=== PATIENT | male | born 1950 | race Caucasian/White ===

== ENCOUNTER 2017-10-28 19:40 | Inpatient (IN) | payer OTHER, MEDICARE ==
[~2017-10-28] VITALS: Ht 170.2 cm; Wt 87.5 kg
[2017-10-28 19:55] VITALS: BP 104/55; PULSE 123; RESP 29; TEMP 100.9; O2SAT 93
[2017-10-28 20:01] VITALS: BP 105/55; PULSE 123; RESP 29; TEMP 100.7; O2SAT 95
[2017-10-28] MEDS ORDERED: METOCLOPRAMIDE HCL 10 MG/2 ML VIAL IV PUSH ONE (20:15)
[2017-10-28] MEDS ORDERED: MORPHINE SULFATE 4 MG/ML INJ IV PUSH ONE (20:15)
--- NOTE | 2017-10-28 20:22 | PD ---
HPI Chief Complaint: Respiratory Distress Time Seen by Provider: 19:55 Travel History International Travel<30 days: No Contact w/Intl Traveler<30days: No Traveled to known affect area: No History of Present Illness HPI 59-year-old male presents to the emergency department via EMS for evaluation of shortness of breath and pain and numbness to the left leg. Patient states that he is short of breath due to the pain in the leg. He does state that he injured his low back on Saturday when he lifted something heavy. He states he cannot feel his leg from his groin down. He denies any history of the same. Patient is a poor historian. He does report history of COPD. He denies any known fevers or chills. He denies chest pain. He is diaphoretic on my exam. Patient received 1 L normal saline bolus via EMS. Patient denies any history of bleeding or blood clots. No recent surgery or travel. No hemoptysis. No history of DVT/PE. He denies leg edema. Patient states the pain is 10/10 to the left leg. No exacerbating or alleviating factors. Moderate severity. PFSH Past Medical History COPD: Yes Diminished Hearing: No Respiratory: Yes (COPD) Influenza Vaccination: Yes Past Surgical History Surgical History: No Previous Surgery Social History Alcohol Use: No Tobacco Use: No (QUIT 07/2017) Substance Use: No Allergies-Medications (Allergen,Severity, Reaction): Coded Allergies: No Known Allergies (Unverified , 10/28/17) Reported Meds & Prescriptions Reported Meds & Active Scripts Active Reported Omeprazole 40 Mg Cap 40 Mg DAILY Losartan (Losartan Potassium) 50 Mg Tab 50 Mg PO DAILY Diltiazem (Diltiazem HCl) 120 Mg Tab 240 Mg PO DAILY Review of Systems Except as stated in HPI: all other systems reviewed are Neg Physical Exam Narrative GENERAL: Well-nourished, well-developed male patient, temp of 100.9 SKIN: Focused skin assessment warm. Patient is diaphoretic. HEAD: Normocephalic. Atraumatic. EYES: No scleral icterus. No injection or drainage. NECK: Supple, trachea midline. No JVD or lymphadenopathy. CARDIOVASCULAR: Regular rhythm without murmurs, gallops, or rubs. Patient is tachycardic. RESPIRATORY: Breath sounds equal bilaterally. No accessory muscle use. Lung sounds are clear to auscultation. Patient is tachypneic. GASTROINTESTINAL: Abdomen soft, non-tender, nondistended. MUSCULOSKELETAL: Left toes blue. His left foot is cool to the touch. I am only able to doppler a left femoral pulse. Right pedal pulse easily found with doppler. BACK: Nontender without obvious deformity. No CVA tenderness. Data Data Last Documented VS Vital Signs Date Time Temp Pulse Resp B/P (MAP) Pulse Ox O2 Delivery O2 Flow Rate FiO2 10/28/17 21:04 102 28 109/55 (73) 97 Nasal Cannula 10/28/17 21:01 4.00 10/28/17 20:01 100.7 Orders Orders Sepsis Workup Initiated (10/28/17 ) Electrocardiogram (10/28/17 20:11) Complete Blood Count With Diff (10/28/17 20:11) Comprehensive Metabolic Panel (10/28/17 20:11) Prothrombin Time / Inr (Pt) (10/28/17 20:11) Act Partial Throm Time (Ptt) (10/28/17 20:11) Lactic Acid Sepsis Protocol (10/28/17 20:11) Magnesium (Mg) (10/28/17 20:11) Lipase (10/28/17 20:11) Ckmb (Isoenzyme) Profile (10/28/17 20:11) Troponin I (10/28/17 20:11) Urinalysis - C+S If Indicated (10/28/17 20:11) Blood Culture (10/28/17 20:11) Chest, Single Ap (10/28/17 20:11) Blood Glucose (10/28/17 20:11) Ecg Monitoring (10/28/17 20:11) Iv Access Insert/Monitor (10/28/17 20:11) Oximetry (10/28/17 20:11) Oxygen Administration (10/28/17 20:11) Morphine Inj (Morphine Inj) (10/28/17 20:15) Metoclopramide Inj (Reglan Inj) (10/28/17 20:15) Cta Runoff W Iv Contrast W 3d (10/28/17 ) Heparin Inj (Heparin Inj) (10/28/17 20:30) Heparin-D5w 25,000 U/250 Ml (Heparin-D5w (10/28/17 20:30) Cbc No Diff, Includes Plts (10/31/17 06:00) Act Partial Throm Time (Ptt) (10/29/17 03:26) Occult Blood (Hemoccult) Stool (10/28/17 20:26) Diet Npo (10/29/17 Breakfast) Sodium Chlor 0.9% 1000 Ml Inj (Ns 1000 M (10/28/17 21:30) Azithromycin Inj (Zithromax Inj) (10/28/17 21:45) Ceftriaxone Inj (Rocephin Inj) (10/28/17 21:45) Sodium Chlor 0.9% 1000 Ml Inj (Ns 1000 M (10/28/17 21:45) CKMB (10/28/17 20:15) CKMB% (10/28/17 20:15) Admit To Inpatient (10/28/17 ) Code Status (10/28/17 22:01) Vital Signs (Adult) SHERMAN.Q1H (10/28/17 22:01) Activity Bed Rest (10/28/17 22:01) Elevate Head Of Bed (10/28/17 22:01) Neuro Checks . ORDERED (10/28/17 22:01) Intake + Output Q1H (10/28/17 22:01) Sodium Chlor 0.9% 1000 Ml Inj (Ns 1000 M (10/28/17 23:00) Sodium Chloride 0.9% Flush (Ns Flush) (10/28/17 22:15) Sodium Chloride 0.9% Flush (Ns Flush) (10/29/17 09:00) Acetaminophen (Tylenol) (10/28/17 22:15) Famotidine Inj (Pepcid Inj) (10/29/17 09:00) Ondansetron Inj (Zofran Inj) (10/28/17 22:15) Temazepam (Restoril) (10/28/17 22:15) Albuterol-Ipratropium Neb (Duoneb Neb) (10/28/17 22:15) Complete Blood Count With Diff (10/29/17 04:00) Comprehensive Metabolic Panel (10/29/17 04:00) Act Partial Throm Time (Ptt) (10/29/17 04:00) Prothrombin Time / Inr (Pt) (10/29/17 04:00) Magnesium (Mg) (10/29/17 04:00) Phosphorus (Po4) (10/29/17 04:00) Lactic Acid (10/29/17 04:00) Pt Request For Service (10/28/17 22:01) Mathematical Physicist / Telemetry SHERMAN.Q8H (10/28/17 22:01) Heparin Inj (Heparin Inj) (10/28/17 22:30) ^ Initiate Protocol (10/28/17 22:01) Instruction (10/28/17 22:01) Nursing Information ([facility] (10/28/17 22:15) Chlorhexidine 2% Cloth (Chlorhexidine 2% (10/29/17 04:00) Chlorhexidine 2% Cloth (Chlorhexidine 2% (10/28/17 22:15) Mrsa Pcr Surveillance (10/28/17 22:01) Docusate Sodium-Senna (Elvira-Colace) (10/29/17 09:00) Magnesium Hydroxide Liq (Milk Of Magnesi (10/28/17 22:15) Sennosides (Senokot) (10/28/17 22:15) Bisacodyl Supp (Dulcolax Supp) (10/28/17 22:15) Lactulose Liq (Lactulose Liq) (10/28/17 22:15) Inpatient Certification (10/28/17 ) Iodixanol 320 Inj (Rad Ct) (Visipaque 32 (10/28/17 22:10) Hydromorphone Pf Inj (Dilaudid Pf Inj) (10/28/17 22:30) Methylprednisolone So Succ Inj (Solumedr (10/29/17 00:00) Albuterol-Ipratropium Neb (Duoneb Neb) (10/29/17 00:00) Heparin-D5w 25,000 U/250 Ml (Heparin-D5w (10/28/17 22:30) Consult Pulmonology (10/28/17 ) (Hub Use Only)Inp Phy Cons/Ref (10/28/17 ) Arterial Segmt Dopp Ltd Jayde (10/28/17 ) ^ Other Nursing Orders (10/28/17 22:34) Admit Order (Ed Use Only) (10/28/17 22:55) Labs Laboratory Tests Test 5/21/18 20:15 White Blood Count 13.3 TH/MM3 Red Blood Count 4.49 MIL/MM3 Hemoglobin 13.9 GM/DL Hematocrit 41.2 % Mean Corpuscular Volume 91.7 FL Mean Corpuscular Hemoglobin 30.9 PG Mean Corpuscular Hemoglobin Concent 33.7 % Red Cell Distribution Width 13.1 % Platelet Count 125 TH/MM3 Mean Platelet Volume 8.9 FL Neutrophils (%) (Auto) 90.7 % Lymphocytes (%) (Auto) 4.3 % Monocytes (%) (Auto) 4.6 % Eosinophils (%) (Auto) 0.1 % Basophils (%) (Auto) 0.3 % Neutrophils # (Auto) 12.1 TH/MM3 Lymphocytes # (Auto) 0.6 TH/MM3 Monocytes # (Auto) 0.6 TH/MM3 Eosinophils # (Auto) 0.0 TH/MM3 Basophils # (Auto) 0.0 TH/MM3 CBC Comment AUTO DIFF Differential Total Cells Counted 100 Neutrophils % (Manual) 59 % Band Neutrophils % 28 % Lymphocytes % 6 % Monocytes % 4 % Neutrophils # (Manual) 12.0 TH/MM3 Metamyelocytes 3 % Differential Comment FINAL DIFF MANUAL Toxic Vacuolation PRESENT Dohle Bodies PRESENT Platelet Estimate LOW Platelet Morphology Comment NORMAL Red Cell Morphology Comment NORMAL Prothrombin Time 12.7 SEC Prothromb Time International Ratio 1.3 RATIO Activated Partial Thromboplast Time 25.6 SEC Blood Urea Nitrogen 29 MG/DL Creatinine 2.85 MG/DL Random Glucose 103 MG/DL Total Protein 6.5 GM/DL Albumin 2.6 GM/DL Calcium Level 8.3 MG/DL Magnesium Level 2.4 MG/DL Alkaline Phosphatase 144 U/L Aspartate Amino Transf (AST/SGOT) 205 U/L Alanine Aminotransferase (ALT/SGPT) 117 U/L Total Bilirubin 5.5 MG/DL Sodium Level 142 MEQ/L Potassium Level 3.8 MEQ/L Chloride Level 108 MEQ/L Carbon Dioxide Level 16.0 MEQ/L Anion Gap 18 MEQ/L Estimat Glomerular Filtration Rate 22 ML/MIN Lactic Acid Level 7.4 mmol/L Total Creatine Kinase 1061 U/L Creatine Kinase MB 5.2 NG/ML Creatine Kinase MB % 0.5 % Troponin I 0.07 NG/ML Lipase 41 U/L MDM Medical Decision Making Medical Screen Exam Complete: Yes Emergency Medical Condition: Yes Medical Record Reviewed: Yes Differential Diagnosis arterial occlusion vs. pneumonia vs. sepsis vs. copd exacerbation Narrative Course 67-year-old male presents to the emergency department via EMS for evaluation of shortness of breath and left leg pain. On exam, he does not have a dopplerable pulse except a femoral pulse in the left leg. His leg is cool, toes are blue. He is unable to move his toes or his left knee. I contacted vascular surgeon, Dr. Lopez, data reduction technician. He recommends heparin bolus, heparin drip, CTA abdomen/ pelvis down to the toes. He like the patient to remain n.p.o. He would like to be called as soon as CTAs are resulted. EKG, CBC, CMP, lactic acid, magnesium, lipase, CK, troponin, PTT, PT/INR, UA are ordered and pending. Chest x-ray is ordered and pending. CTA abdomen/ pelvis, CTA of the lower extremities runoff are ordered and pending. Patient is given morphine 4 mg IV, Reglan 10 mg IV. Heparin bolus of 80 U/kg and heparin drip are ordered. CBC shows leukocytosis 13.3, band neutrophils 28, toxic vacuolation. CMP shows CO2 16, anion gap 18, BUN 29, creatinine 2.85, bilirubin 5.5. Lactic acid is 7.4. Magnesium is 2.4. Lipase is 41. CK is 1061. Troponin is 0.07. Coags show no acute abnormal. Chest x-ray shows left lower lobe infiltrate, mild cardiomegaly. Patient is given 2 additional IV normal saline boluses Dr. Lopez would like CT is completed even though creatinine is elevated. I spoke to Dr. Rahman, radiologist, who would like to speak to Dr. Lopez about this. I called Dr. Lopez and gave him Dr. Rahman's number. He called Dr. Rahman and okayed the patient to get contrast despite his creatinine. Dr. Aden accepted admission. Dr. Lopez was in the emergency department evaluating the patient. Sepsis Criteria SIRS Criteria (2 or more): Heart rate over 90, WBC > 17182, < 4000 or > 10% bands Sepsis Criteria (SIRS+source): Infect source susp/known Severe Sepsis (+one): Lactate >2 Diagnosis Primary Impression: Sepsis Qualified Codes: A41.9 - Sepsis, unspecified organism Additional Impressions: Pneumonia Qualified Codes: J18.1 - Lobar pneumonia, unspecified organism Ischemia of left lower extremity Admitting Information Admitting Physician Requests: Admit Yamilka Petty October 28, 2017 20:22
[2017-10-28] MEDS ORDERED: HEPARIN-D5W 25,000 U/250 ML 250 ML IV PRN (20:30)
[2017-10-28] MEDS ORDERED: HEPARIN SODIUM - IV 10,000 UNITS/10 ML VIAL IV PUSH ONE (20:30)
--- NOTE | 2017-10-28 20:35 | RADRPT ---
EXAM DATE/TIME: 10/28/2017 20:20 [place] COMPARISON: No previous studies available for comparison. INDICATIONS : Shortness of breath. MEDICAL HISTORY : Chronic obstructive pulmonary disease. Former smoker. SURGICAL HISTORY : None. ENCOUNTER: Initial ACUITY: 1 day PAIN SCORE: 0/10 LOCATION: Bilateral chest FINDINGS: 2 portable frontal views of the chest show a small area consolidation involving the lateral aspects o f the left lung base. This obscures the cardiophrenic angle. No meniscus. Right lung is clear. No eff usions. Heart is mildly enlarged. Bony structures are unremarkable. CONCLUSION: Left lower lobe infiltrate. Mild cardiomegaly. Juanjose Mckeon Jr., MD on October 28, 2017 at 20:33 Board Certified Radiologist. This report was verified electronically.
[2017-10-28 21:03] LABS: AUTOMATED NEUTROPHIL # 12.1 TH/MM3 (1.8-7.7); BASOPHIL % 0.3 % (0.0-2.0); EOSINOPHIL % 0.1 % (0.0-4.0); HEMATOCRIT 41.2 % (39.0-51.0); HEMOGLOBIN 13.9 GM/DL (13.0-17.0); LYMPH % 4.3 % (9.0-44.0); LYMPHOCYTE # 0.6 TH/MM3 (1.0-4.8); MEAN CELL VOLUME 91.7 FL (80.0-100.0); MEAN CORPUSCULAR HEMOGLOBIN 30.9 PG (27.0-34.0); MEAN CORPUSCULAR HGB CONC 33.7 % (32.0-36.0); MEAN PLATELET VOLUME 8.9 FL (7.0-11.0); MONO % 4.6 % (0.0-8.0); MONOCYTE # 0.6 TH/MM3 (0-0.9); NEUT % 90.7 % (16.0-70.0); PLATELET COUNT 125 TH/MM3 (150-450); RED BLOOD COUNT 4.49 MIL/MM3 (4.50-5.90); RED CELL DISTRIBUTION WIDTH 13.1 % (11.6-17.2); WHITE BLOOD COUNT 13.3 TH/MM3 (4.0-11.0)
[2017-10-28 21:04] VITALS: BP 109/55; PULSE 102; RESP 28; O2SAT 97
[2017-10-28 21:22] LABS: INTERNATIONAL NORMALIZED RATIO 1.3 RATIO; PROTHROMBIN TIME - PATIENT 12.7 SEC (9.8-11.6)
[2017-10-28 21:25] LABS: ALBUMIN 2.6 GM/DL (3.4-5.0); ALT (GPT) 117 U/L (12-78); AST (GOT) 205 U/L (15-37); CALCIUM 8.3 MG/DL (8.5-10.1); CHLORIDE 108 MEQ/L (98-107); CREATININE 2.85 MG/DL (0.60-1.30); GLOMERULAR FILTRATION RATE 22 ML/MIN (>89); GLUCOSE,RANDOM 103 MG/DL (74-106); MAGNESIUM 2.4 MG/DL (1.5-2.5); SODIUM (NA) 142 MEQ/L (136-145)
[2017-10-28] MEDS ORDERED: SODIUM CHLOR 0.9% 1000 ML INJ 1,000 ML IV ONE ×2 (21:30→21:45)
[2017-10-28 21:42] LABS: LACTIC ACID SEPSIS PROTOCOL 7.4 mmol/L (0.4-2.0)
[2017-10-28] MEDS ORDERED: cefTRIAXone INJ 1,000 MG in SODIUM CHLORIDE 0.9% INJ 100 ML IV ONE (21:45)
[2017-10-28] MEDS ORDERED: AZITHROMYCIN INJ 500 MG in SODIUM CHLOR 0.9% 250 ML INJ 250 ML IV ONE (21:45)
[2017-10-28 21:54] LABS: ALKALINE PHOSPHATASE 144 U/L (45-117); BLOOD UREA NITROGEN 29 MG/DL (7-18); TOTAL BILIRUBIN ADULT 5.5 MG/DL (0.2-1.0); TOTAL PROTEIN 6.5 GM/DL (6.4-8.2); TROPONIN I 0.07 NG/ML (0.02-0.05)
[2017-10-28] MEDS ORDERED: IODIXANOL 320 MG/ML 10 ML VIAL (for Rad CT) IVCONTRAST ONE (22:10)
[2017-10-28] MEDS ORDERED: SODIUM CHLORIDE 0.9% FLUSH 10 ML FLUSH IV FLUSH PRN (22:15)
[2017-10-28] MEDS ORDERED: ACETAMINOPHEN 325 MG TAB PO PRN (22:15)
[2017-10-28] MEDS ORDERED: TEMAZEPAM 15 MG CAP PO PRN (22:15)
[2017-10-28] MEDS ORDERED: NURSING INFORMATION XX SCH (22:15)
[2017-10-28] MEDS ORDERED: CHLORHEXIDINE GLUCONATE 2 % 1 PACK (2 CLOTHS) TOP PRN (22:15)
[2017-10-28] MEDS ORDERED: SENNOSIDES 8.6 MG TAB PO PRN (22:15)
--- NOTE | 2017-10-28 22:24 | HHI.HP ---
[facility] Service Critical Care Medicine Primary Care Physician Admission Diagnosis Diagnosis: Travel History International Travel<30 Days: No Contact w/Intl Traveler <30 Da: No Traveled to Known Affected Are: No History of Present Illness 67-year-old male presents to the emergency department via EMS for evaluation of shortness of breath and pain and numbness to the left leg. Patient believes that he is shortness of breath is related to the pain in his leg. He cannot feel his leg from his groin down. He denies any history of the same. He does report history of COPD. He denies any known fevers or chills. He denies chest pain. Patient received 1 L normal saline bolus via EMS. Patient denies any history of bleeding or blood clots. No recent surgery or travel. No hemoptysis. No history of DVT/PE. He denies leg edema. Patient states the pain is 10/10 to the left leg. No exacerbating or alleviating factors. Moderate severity. 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 The right inflow is heavily diseased as well. The patient was evaluated by vascular surgeon consolidator and was immediately started on heparin drip. Review of Systems Constitutional: COMPLAINS OF: Diaphoretic episodes, DENIES: Fatigue, Fever, Weight gain, Weight loss, Chills, Dizziness, Change in appetite, Night Sweats Endocrine: DENIES: Heat/cold intolerance, Polydipsia, Polyuria, Polyphagia Eyes: DENIES: Blurred vision, Diplopia, Eye inflammation, Eye pain, Vision loss , Photosensitivity, Double Vision Ears, nose, mouth, throat: DENIES: Tinnitus, Hearing loss, Vertigo, Nasal discharge, Oral lesions, Throat pain, Hoarseness, Ear Pain, Running Nose, Epistaxis, Sinus Pain, Toothache, Odynophagia Respiratory: COMPLAINS OF: Shortness of breath, DENIES: Apneas, Cough, Snoring , Wheezing, Hemoptysis, Sputum production Cardiovascular: COMPLAINS OF: Dyspnea on Exertion, DENIES: Chest pain, Palpitations, Syncope, PND, Lower Extremity Edema, Orthopnea, Claudication Gastrointestinal: DENIES: Abdominal pain, Black stools, Bloody stools, Constipation, Diarrhea, Nausea, Vomiting, Difficulty Swallowing, Anorexia Genitourinary: DENIES: Sexual dysfunction, Urinary frequency, Urinary incontinence, Urgency, Hematuria, Dysuria, Nocturia, Penile Discharge, Testicular Pain, Testicular Swelling Musculoskeletal: DENIES: Joint pain, Muscle aches, Stiffness, Joint Swelling, Back pain, Neck pain Integumentary: DENIES: Abnormal pigmentation, Nail changes, Pruritus, Rash Hematologic/lymphatic: DENIES: Bruising, Lymphadenopathy Immunologic/allergic: DENIES: Eczema, Urticaria Neurologic: DENIES: Abnormal gait, Headache, Localized weakness, Paresthesias, Seizures, Speech Problems, Tremor, Poor Balance Psychiatric: DENIES: Anxiety, Confusion, Mood changes, Depression, Hallucinations, Agitation, Suicidal Ideation, Homicidal Ideation, Delusions Past Family Social History Allergies: Coded Allergies: No Known Allergies (Unverified , 10/28/17) Past Medical History No known CAD + COPD hiatal hernia Past Surgical History hiatal hernia repair several decades ago Reported Medications Reported Meds & Active Scripts Active Reported Omeprazole 40 Mg Cap 40 Mg DAILY Losartan (Losartan Potassium) 50 Mg Tab 50 Mg PO DAILY Diltiazem (Diltiazem HCl) 120 Mg Tab 240 Mg PO DAILY Active Ordered Medications Current Medications Medications (Trade) Dose Ordered Sig/Olesya Route PRN Reason Start Time Stop Time Status Last Admin Dose Admin Sodium Chloride 1,000 ml @ 124 mls/hr Q8H4M IV 10/28/17 23:00 Sodium Chloride (NS Flush) 2 ml UNSCH PRN IV FLUSH FLUSH AFTER USING IV ACCESS 10/28/17 22:15 Sodium Chloride (NS Flush) 2 ml BID IV FLUSH 10/29/17 09:00 Acetaminophen (Tylenol) 650 mg Q6H PRN PO PAIN 1-5 AND/OR FEVER >101F 10/28/17 22:15 Hydromorphone HCl (Dilaudid Pf Inj) 1 mg Q4H PRN IV PAIN SCALE 6 TO 10 10/28/17 22:30 Famotidine (Pepcid Inj) 10 mg Q12HR IV PUSH 10/29/17 09:00 Ondansetron HCl (Zofran Inj) 4 mg Q6H PRN IV PUSH NAUSEA OR VOMITING 10/28/17 22:15 Temazepam (Restoril) 15 mg HS PRN PO INSOMNIA 10/28/17 22:15 Albuterol/ Ipratropium (Duoneb Neb) 1 ampule Q2HR NEB PRN INH WHEEZING 10/28/17 22:15 Miscellaneous Information (Misc Nursing Information) 1 [id number] XX 10/28/17 22:15 Chlorhexidine Gluconate (Chlorhexidine 2% Cloth) 3 pack Taper DAILY@04 TOP 10/29/17 04:00 10/25/18 03:59 Chlorhexidine Gluconate (Chlorhexidine 2% Cloth) 3 pack UNSCH PRN TOP HYGIENIC CARE 10/28/17 22:15 Senna/Docusate Sodium (Elvira-Colace) 1 tab BID PO 10/29/17 09:00 Magnesium Hydroxide (Milk Of Magnesia Liq) 30 ml Q12H PRN PO Mild constipation 10/28/17 22:15 Sennosides (Senokot) 17.2 mg Q12H PRN PO Moderate constipation 10/28/17 22:15 Bisacodyl (Dulcolax Supp) 10 mg DAILY PRN RECTAL SEVERE CONSITIPATION 10/28/17 22:15 Lactulose (Lactulose Liq) 30 ml DAILY PRN PO SEVERE CONSITIPATION 10/28/17 22:15 Methylprednisolone Sodium Succinate (SoluMEDROL INJ) 40 mg Q6HR IV PUSH 10/29/17 00:00 Albuterol/ Ipratropium (Duoneb Neb) 1 ampule Q4HR NEB NEB 10/29/17 00:00 10/28/17 23:25 Heparin Sodium/ Dextrose 250 ml @ 15 mls/hr TITRATE PRN IV Coagulation Management 10/28/17 22:30 Azithromycin 500 mg/Sodium Chloride 250 ml @ 250 mls/hr Q24H IV 10/29/17 22:00 Ceftriaxone Sodium 1000 mg/ Sodium Chloride 100 ml @ 200 mls/hr Q12H IV 10/29/17 09:00 Diltiazem HCl (Cardizem Cd) 240 mg DAILY PO 10/29/17 09:00 Family History No family history significant of early coronary artery disease or PVDs Social History With smoking few days ago, no history of alcohol or illicit drug abuse Physical Exam Vital Signs Vital Signs Date Time Temp Pulse Resp B/P (MAP) Pulse Ox O2 Delivery O2 Flow Rate FiO2 10/28/17 21:04 102 28 109/55 (73) 97 Nasal Cannula 10/28/17 21:01 97 Nasal Cannula 4.00 10/28/17 20:01 100.7 123 29 105/55 (72) 95 Nasal Cannula 4.00 10/28/17 20:01 123 29 94 Nasal Cannula 4.00 10/28/17 19:55 100.9 123 29 104/55 (71) 93 Physical Exam GENERAL: Well-nourished, well-developed patient. Moderate respiratory distress SKIN: Warm and dry. HEAD: Normocephalic. EYES: No scleral icterus. No injection or drainage. NECK: Supple, trachea midline. No JVD or lymphadenopathy. CARDIOVASCULAR: Regular rate and rhythm without murmurs, gallops, or rubs. RESPIRATORY: Breath sounds equal bilaterally. Some accessory muscle use. Bilateral crackles and fine rhonchi GASTROINTESTINAL: Abdomen soft, non-tender, nondistended. MUSCULOSKELETAL: No cyanosis, or edema. BACK: Nontender without obvious deformity. NEURO EXAM: GCS: 15 Mental Status: The patient is alert and oriented to person, place, and time with normal speech. Moves all 4 extremities Laboratory Laboratory Tests Test 10/28/17 20:15 White Blood Count 13.3 Red Blood Count 4.49 Hemoglobin 13.9 Hematocrit 41.2 Mean Corpuscular Volume 91.7 Mean Corpuscular Hemoglobin 30.9 Mean Corpuscular Hemoglobin Concent 33.7 Red Cell Distribution Width 13.1 Platelet Count 125 Mean Platelet Volume 8.9 Neutrophils (%) (Auto) 90.7 Lymphocytes (%) (Auto) 4.3 Monocytes (%) (Auto) 4.6 Eosinophils (%) (Auto) 0.1 Basophils (%) (Auto) 0.3 Neutrophils # (Auto) 12.1 Lymphocytes # (Auto) 0.6 Monocytes # (Auto) 0.6 Eosinophils # (Auto) 0.0 Basophils # (Auto) 0.0 CBC Comment AUTO DIFF Prothrombin Time 12.7 Prothromb Time International Ratio 1.3 Activated Partial Thromboplast Time 25.6 Blood Urea Nitrogen 29 Creatinine 2.85 Random Glucose 103 Total Protein 6.5 Albumin 2.6 Calcium Level 8.3 Magnesium Level 2.4 Alkaline Phosphatase 144 Aspartate Amino Transf (AST/SGOT) 205 Alanine Aminotransferase (ALT/SGPT) 117 Total Bilirubin 5.5 Sodium Level 142 Potassium Level 3.8 Chloride Level 108 Carbon Dioxide Level 16.0 Anion Gap 18 Estimat Glomerular Filtration Rate 22 Lactic Acid Level 7.4 Total Creatine Kinase 1061 Troponin I 0.07 Lipase 41 Date/Time Source Procedure Growth Status 10/28/17 20:20 Blood Peripheral Aerobic Blood Culture Pending Received 10/28/17 20:20 Blood Peripheral Anaerobic Blood Culture Pending Received Result Diagram: 10/28/17201410/28/172014 Imaging Last 24 hours Impressions Chest X-Ray 10/28/172010 Signed Impressions: Service Date/Time: Saturday, October 28, 2017 20:20 - CONCLUSION: Left lower lobe infiltrate. Mild cardiomegaly. MD Mango Richey Jr. VTE Risk Assessment Caprini VTE Risk Assessment: Mod/High Risk (score >= 2) Caprini Risk Assessment Model Point Value = 1 Point Value = 2 Point Value = 3 Point Value = 5 Age 41-60 Minor surgery BMI > 25 kg/m2 Swollen legs Varicose veins or History of unexplained or recurrent spontaneous Oral contraceptives or hormone replacement Sepsis (< 1 month) Serious lung disease, including pneumonia (< 1 month) Abnormal pulmonary function Acute myocardial infarction Congestive heart failure (< 1 month) History of inflammatory bowel disease Medical patient at bed rest Age 61-74 Arthroscopic surgery Major open surgery (> 45 min) Laparoscopic surgery (> 45 min) Malignancy Confined to bed (> 72 hours) Immobilizing plaster cast Central venous access Age >= 75 History of VTE Family history of VTE Factor V Leiden Prothrombin [id number] Lupus anticoagulant Anticardiolipin antibodies Elevated serum homocysteine Heparin-induced thrombocytopenia Other congenital or acquired thrombophilia Stroke (< 1 month) Elective arthroplasty Hip, pelvis, or leg fracture Acute spinal cord injury (< 1 month) Prophylaxis Regimen Total Risk Factor Score Risk Level Prophylaxis Regimen 0-1 Low Early ambulation 2 Moderate Order ONE of the following: *Sequential Compression Device (SCD) *Heparin 5000 units SQ BID 3-4 Higher Order ONE of the following medications: *Heparin 5000 units SQ TID *Enoxaparin/Lovenox 40 mg SQ daily (WT < 150 kg, CrCl > 30 mL/min) *Enoxaparin/Lovenox 30 mg SQ daily (WT < 150 kg, CrCl > 10-29 mL/min) *Enoxaparin/Lovenox 30 mg SQ BID (WT < 150 kg, CrCl > 30 mL/min) AND/OR *Sequential Compression Device (SCD) 5 or more Highest Order ONE of the following medications: *Heparin 5000 units SQ TID (Preferred with Epidurals) *Enoxaparin/Lovenox 40 mg SQ daily (WT < 150 kg, CrCl > 30 mL/min) *Enoxaparin/Lovenox 30 mg SQ daily (WT < 150 kg, CrCl > 10-29 mL/min) *Enoxaparin/Lovenox 30 mg SQ BID (WT < 150 kg, CrCl > 30 mL/min) AND *Sequential Compression Device (SCD) Assessment and Plan Assessment and Plan Respiratory failure -High risk for CAD -Significant calcifications and peripheral vascular disease -We will rule out acute coronary syndrome -Series of EKGs and troponins, 2D echo a.m. -Patient is already on a heparin drip due to iliac artery occlusion Pneumonia -Infiltrate on the x-ray -Rocephin and Zithromax -Follow-up sputum and blood cultures COPD -DuoNeb scheduled and as needed -Empiric antibiotic -Steroids -Pulmonary consultation prior vascular surgery Acute kidney injury -Unknown baseline -Hydration -Strict I's and O's -Creatinine and electrolyte levels DVT GI prophylaxis -Vickey's and SCDs -Heparin drip -Pepcid Critical Care: The total critical care time was 35 minutes. Time to perform other separately billable procedures was not included in the critical care time. Kenn Aden MD October 28, 2017 10:24 pm
[2017-10-28] MEDS ORDERED: HEPARIN SODIUM - SQ 10,000 UNITS/ML VIAL SQ SCH (22:30)
--- NOTE | 2017-10-28 22:34 | PD.VS.CON ---
History of Present Illness Chief Complaint: L>R leg numbness Consult Requested by: Dr. Benz, ED History of Present Illness 67 yo male with back pain starting 2 days ago related to exertion. Then today developed worsening leg pain. Decreased motor function and overtly cool according to the sister who accompanies him and provides most of history. The patient says that his left foot feels numb. Was normal for him several days ago. Past/Family/Social History Past Medical History No known CAD + COPD hiatal hernia poor historian so remainder of medical history unknown Past Surgical History hiatal hernia repair several decades ago Social History former smoker lives with demented father Family History NC Coded Allergies: No Known Allergies (Unverified , 10/28/17) Review of Systems ROS Limitations: Poor Historian Physical Exam Vitals/I&O Date Time Temp Pulse Resp B/P (MAP) Pulse Ox O2 Delivery O2 Flow Rate FiO2 10/28/17 21:04 102 28 109/55 (73) 97 Nasal Cannula 10/28/17 21:01 97 Nasal Cannula 4.00 10/28/17 20:01 100.7 123 29 105/55 (72) 95 Nasal Cannula 4.00 10/28/17 20:01 123 29 94 Nasal Cannula 4.00 10/28/17 19:55 100.9 123 29 104/55 (71) 93 Neuro: slightly somnolent, [place] HEENT: wears glasses Neck: no JVD Heart: reg rate, no M Lungs: clear, distant B Abdomen: obese, NT Vascular: nonpalpable femoral or pedal pulses Extremities: cool and cyanotic motor intact Laboratory Tests Test 10/28/17 20:15 White Blood Count 13.3 Red Blood Count 4.49 Hemoglobin 13.9 Hematocrit 41.2 Mean Corpuscular Volume 91.7 Mean Corpuscular Hemoglobin 30.9 Mean Corpuscular Hemoglobin Concent 33.7 Red Cell Distribution Width 13.1 Platelet Count 125 Mean Platelet Volume 8.9 Neutrophils (%) (Auto) 90.7 Lymphocytes (%) (Auto) 4.3 Monocytes (%) (Auto) 4.6 Eosinophils (%) (Auto) 0.1 Basophils (%) (Auto) 0.3 Neutrophils # (Auto) 12.1 Lymphocytes # (Auto) 0.6 Monocytes # (Auto) 0.6 Eosinophils # (Auto) 0.0 Basophils # (Auto) 0.0 CBC Comment AUTO DIFF Prothrombin Time 12.7 Prothromb Time International Ratio 1.3 Activated Partial Thromboplast Time 25.6 Blood Urea Nitrogen 29 Creatinine 2.85 Random Glucose 103 Total Protein 6.5 Albumin 2.6 Calcium Level 8.3 Magnesium Level 2.4 Alkaline Phosphatase 144 Aspartate Amino Transf (AST/SGOT) 205 Alanine Aminotransferase (ALT/SGPT) 117 Total Bilirubin 5.5 Sodium Level 142 Potassium Level 3.8 Chloride Level 108 Carbon Dioxide Level 16.0 Anion Gap 18 Estimat Glomerular Filtration Rate 22 Lactic Acid Level 7.4 Total Creatine Kinase 1061 Troponin I 0.07 Lipase 41 Date/Time Source Procedure Growth Status 10/28/17 20:20 Blood Peripheral Aerobic Blood Culture Pending Received 10/28/17 20:20 Blood Peripheral Anaerobic Blood Culture Pending Received Last 48 hours Impressions Chest X-Ray 10/28/172010 Signed Impressions: Service Date/Time: Saturday, October 28, 2017 20:20 - CONCLUSION: Left lower lobe infiltrate. Mild cardiomegaly. Juanjose Mckeon Jr., MD Assessment and Plan Plan Profound dehydration and acute on chronic limb ischemia. However, on my exam he is motor INTACT. CTA shows severe aorto-iliac occlusive disease with left iliac thrombosis with AUDIT LEAD reconstitution and significant calcification. Clearly needs volume resuscitation and optimization before any non-emergent revascularization 1. Admit to ICU 2. Hydration and trend lactates 3. Serial neuromuscular exams - notify vascular immediately if loses motor function 4. follow creatinine, UOP 5. aggressive heparinization Saurav Lopez MD FACS RPVI assembler small products [facility] - Heart and Vascular Surgery at [facility] [phone] Saurav Lopez MD October 28, 2017 22:34
[2017-10-28 22:35] LABS: BANDS 28 % (0-6); LYMPHOCYTES 6 % (9-44); METAMYELOCYTES 3 % (0-1); MONOCYTES 4 % (0-8); POLYS (SEG NEUTROPHILS) 59 % (16-70)
[2017-10-28 22:36] LABS: TOXIC VACUOLATION PRESENT (NONE SEEN)
[2017-10-28 22:37] LABS: DOHLE BODIES PRESENT (NONE SEEN)
[2017-10-28] MEDS ORDERED: DILT120T PO (22:45)
[2017-10-28] MEDS ORDERED: LOSA50TA PO (22:45)
[2017-10-28] MEDS ORDERED: OMEP40CA2 (22:45)
[2017-10-28 23:15] VITALS: BP 108/49; PULSE 77; RESP 26; TEMP 98.5; O2SAT 97
--- NOTE | 2017-10-28 23:16 | RADRPT ---
EXAM DATE/TIME: 10/28/2017 21:50 [place] COMPARISON: No previous studies available for comparison. INDICATIONS : Left foot pain. IV CONTRAST: 100 cc Visipaque (iodixanol) IV RADIATION DOSE: 10.53 CTDIvol (mGy) MEDICAL HISTORY : Chronic obstructive pulmonary disease. SURGICAL HISTORY : None. ENCOUNTER: Initial ACUITY: 1 day PAIN SCALE: 5/10 LOCATION: Left lower leg TECHNIQUE: I personally spoke with Dr. Lopez to alert him to the patient's renal status and to discuss the risk of renal failure associated with the contrast bolus. He informed me he was aware and needed to proce ed with this exam despite these risks. Volumetric scanning was performed using a multi-row detector C T scanner. The data was post processed with a variety of visualization algorithms including full vol ume maximum intensity projection, multi-planar sliding thin slab reformation, curved planar reformati on, and surface rendering techniques. Using automated exposure control and adjustment of the mA and/ or kV according to patient size, radiation dose was kept as low as reasonably achievable to obtain op timal diagnostic quality images. DICOM format image data is available electronically for review and comparison. FINDINGS: Aorta/inflow: Calcified and noncalcified atheromatous plaque is seen throughout the abdominal aorta but most abunda nt within the infrarenal extent. This does generate mild luminal irregularity involving the suprarena l aorta. No hemodynamically significant stenosis involving the aorta. There is occlusion of the left common iliac and external iliac artery. The right inflow is heavily diseased as well. There is a foca l area of poor opacification involving the lumen of the distal common iliac artery on the right gregorio rning for short segment occlusion. The right external iliac artery is patent. Both internal aortic ar teries are diffusely diseased diffusely small in caliber. A moderate stenosis is noted involving the celiac origin measuring 50-60%. SMA is patent. Bilateral calcified plaques involving the renal arteri es. A 60-70% stenosis noted on the left with a 30-40% stenosis noted on the right. Right lower extremity: Eccentric calcified plaque involving the posterior wall the common femoral artery generate a 40% sten osis. This extends into the origin of the SFA generating a 60% stenosis. The profunda femoris is graves nt. Scattered calcified plaque throughout the abductor canal generating areas of 20-40% stenosis. The iaywt-qre-ylii popliteal artery has calcified plaque with a focal area of 40% stenosis within the ab wfs-upg-qvmj extent in a 50-60% stenosis at the level of the femoral condyles. The below-knee poplite al artery is less heavily involved. 3 vessel runoff seen to the foot. The anterior tibial artery is d ominant. Left lower extremity: There is reconstitution of the common femoral artery which is heavily calcified nearly circumferentia l in nature. Within its inferior aspect there is a 50-60% stenosis. This calcified plaque extends int o the SFA origin generating a 60-70% stenosis. The profunda femoris is patent. Scattered calcified pl aque throughout the entire SFA with the most significant stenosis just proximal to the abductor canal generating a 60% stenosis. Calcified plaque throughout the enaoa-yui-hcmj popliteal artery with the most significant stenosis at the level of the metaphysis measuring 60-70%. The below-knee popliteal a rtery is less heavily involved and patent. The anterior tibial artery is patent and forms the dorsali s pedis artery. The posterior tibial artery shows opacification with contrast to the level of the ank le joint. I'm not able to confirm patency to the plantar vessels. Peroneal artery tapers at the level of the ankle joint. Other structures: Emphysematous changes and scarring involving the lung bases. Hepatic steatosis. Calcified gallstones without gallbladder wall thickening or surrounding fluid. Calcifi she throughout the prostate gland. CONCLUSION: 1. Acute occlusion of the left inflow with concern for short segment occlusion involving the distal r ight inflow. This raises concern for an embolic event. 2. Right lower extremity shows scattered disease throughout the common femoral artery, SFA and above- the-knee popliteal artery with three-vessel runoff to the foot. 3. Left lower extremity with reconstitution of the common femoral artery with diseased out flow and t wo vessel runoff to the foot as detailed above. 4. 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 5. Hepatic steatosis. 6. Cholelithiasis. Juanjose Mckeon Jr., MD on October 28, 2017 at 23:00 Board Certified Radiologist. This report was verified electronically.
[2017-10-28 23:20] VITALS: O2SAT 96
[2017-10-28] MEDS: RESP: ALBUTEROL 2.5 MG/IPRATROPIUM 0.5 MG NEB (SCH) NEB (23:25)
[2017-10-29] VITALS (27 sets, daily range): BP systolic 80–161; BP diastolic 45–78; PULSE 70–99; RESP 11–24; TEMP 97.7–98.9; O2SAT 91–100
[2017-10-29 00:35] LABS: BILIRUBIN, URINE LARGE (NEG); BLOOD, URINE LARGE (NEG); GLUCOSE,URINE 100 mg/dL (NEG); KETONE, URINE NEG (NEG); NITRITE,URINE NEG (NEG); URINE COLOR YELLOW (YELLW/STRAW); URINE LEUKOCYTE ESTERASE NEG (NEG)
[2017-10-29 00:41] LABS: BACTERIA, URINE RARE /hpf; HYALINE CAST, URINE 3 /lpf (RARE); MUCUS URINE FEW /lpf (OCC); RENAL EPITHELIAL CELLS 1 /hpf; SQUAMOUS EPITHELIAL CELL URINE 1 /hpf (0-5); TRANSITIONAL EPI CELLS, URINE <1 /hpf; WHITE BLOOD CELL CLUMPS RARE
[2017-10-29] MEDS: SODIUM CHLOR 0.9% 1000 ML INJ 1,000 ML IV SCH ×4 (01:16→21:11)
[2017-10-29] MEDS: methylPREDNISolone SOD SUCC 40 MG/1 ML VIAL IV PUSH SCH ×4 (01:16→17:04)
[2017-10-29] MEDS: HYDROmorphone HCL PF 0.5 MG/0.5 ML SYRINGE IV PRN ×3 (01:17→17:04)
[2017-10-29] MEDS: HEPARIN-D5W 25,000 U/250 ML 250 ML IV PRN (01:37)
[2017-10-29] MEDS ORDERED: SODIUM CHLOR 0.9% 1000 ML INJ 1,000 ML IV ONE ×2 (01:45)
[2017-10-29] MEDS: RESP: ALBUTEROL 2.5 MG/IPRATROPIUM 0.5 MG NEB (SCH) NEB ×6 (03:14→23:05)
[2017-10-29] MEDS: CHLORHEXIDINE GLUCONATE 2 % 1 PACK (2 CLOTHS) TOP SCH (03:16)
[2017-10-29 04:06] LABS: AUTOMATED NEUTROPHIL # 15.8 TH/MM3 (1.8-7.7); BASOPHIL % 0.2 % (0.0-2.0); EOSINOPHIL # 0.1 TH/MM3 (0-0.4); EOSINOPHIL % 0.4 % (0.0-4.0); HEMATOCRIT 40.9 % (39.0-51.0); HEMOGLOBIN 13.7 GM/DL (13.0-17.0); LYMPH % 5.6 % (9.0-44.0); MEAN CELL VOLUME 93.9 FL (80.0-100.0); MEAN CORPUSCULAR HEMOGLOBIN 31.3 PG (27.0-34.0); MEAN CORPUSCULAR HGB CONC 33.4 % (32.0-36.0); MEAN PLATELET VOLUME 8.5 FL (7.0-11.0); MONO % 2.1 % (0.0-8.0); MONOCYTE # 0.4 TH/MM3 (0-0.9); NEUT % 91.7 % (16.0-70.0); PLATELET COUNT 90 TH/MM3 (150-450); RED BLOOD COUNT 4.36 MIL/MM3 (4.50-5.90); RED CELL DISTRIBUTION WIDTH 13.7 % (11.6-17.2); WHITE BLOOD COUNT 17.2 TH/MM3 (4.0-11.0)
[2017-10-29 04:39] LABS: ALBUMIN 2.4 GM/DL (3.4-5.0); BICARBONATE 17.2 MEQ/L (21.0-32.0); CALCIUM 6.8 MG/DL (8.5-10.1); CREATININE 2.23 MG/DL (0.60-1.30); MAGNESIUM 2.3 MG/DL (1.5-2.5)
[2017-10-29 04:45] LABS: INTERNATIONAL NORMALIZED RATIO 1.3 RATIO; PROTHROMBIN TIME - PATIENT 13.6 SEC (9.8-11.6)
[2017-10-29 04:46] LABS: PHOSPHORUS 5.1 MG/DL (2.5-4.9); TOTAL BILIRUBIN ADULT 4.8 MG/DL (0.2-1.0); TOTAL PROTEIN 5.9 GM/DL (6.4-8.2); TROPONIN I 0.06 NG/ML (0.02-0.05)
[2017-10-29 04:47] LABS: CALCIUM-PROTEIN CORRECTED 7.4 MG/DL (8.5-10.1)
[2017-10-29 05:43] LABS: BANDS 24 % (0-6); METAMYELOCYTES 19 % (0-1); MONOCYTES 1 % (0-8); MYELOCYTES 3 % (0-0); POLYS (SEG NEUTROPHILS) 47 % (16-70)
[2017-10-29 05:44] LABS: LYMPHOCYTES 6 % (9-44); TOXIC VACUOLATION PRESENT (NONE SEEN)
[2017-10-29 05:48] LABS: DOHLE BODIES PRESENT (NONE SEEN)
[2017-10-29 05:49] LABS: ACANTHOCYTES OCC (NORMAL)
[2017-10-29] MEDS: DILTIAZEM-CD 240 MG CAP ER PO SCH (08:38)
[2017-10-29] MEDS: DOCUSATE SODIUM 50 MG/SENNA 8.6 MG TAB PO SCH ×2 (08:38→21:00)
[2017-10-29] MEDS: FAMOTIDINE 20 MG/2 ML VIAL IV PUSH SCH ×2 (08:38→21:10)
[2017-10-29] MEDS: SODIUM CHLORIDE 0.9% FLUSH 10 ML FLUSH IV FLUSH SCH ×2 (08:39→21:10)
[2017-10-29] MEDS ORDERED: cefTRIAXone INJ 1,000 MG in SODIUM CHLORIDE 0.9% INJ 100 ML IV SCH (09:00)
--- NOTE | 2017-10-29 09:09 | PD.VS.PN ---
Subjective Subjective/Hospital Course pt remains motor intact. Says his legs subjectively "feel a little better". no chest pain and no distress otherwise Objective Vitals/I&O Date Time Temp Pulse Resp B/P (MAP) Pulse Ox O2 Delivery O2 Flow Rate FiO2 10/29/17 08:04 97.9 79 13 125/58 (80) 98 10/29/17 08:00 79 15 98 10/29/17 07:39 97 Simple Mask 8.00 10/29/17 07:30 78 14 120/78 (92) 98 10/29/17 07:00 95 Simple Mask 10.00 10/29/17 07:00 78 16 134/64 (87) 97 10/29/17 06:24 95 Simple Mask 10.00 10/29/17 06:00 97.7 77 16 135/63 (87) 99 10/29/17 06:00 77 10/29/17 05:00 72 13 116/58 (77) 100 10/29/17 04:00 71 10/29/17 04:00 98.8 71 14 116/59 (78) 96 10/29/17 03:00 70 13 80/63 (69) 99 10/29/17 02:30 97 Simple Mask 8.00 10/29/17 02:00 71 10/29/17 02:00 71 15 81/45 (57) 92 10/29/17 01:26 85 10/29/17 01:25 98.1 85 24 85/48 (60) 94 10/28/17 23:20 96 Nasal Cannula 3.00 10/28/17 23:15 98.5 77 26 108/49 (68) 97 Nasal Cannula 4.00 10/28/17 21:04 102 28 109/55 (73) 97 Nasal Cannula 10/28/17 21:01 97 Nasal Cannula 4.00 10/28/17 20:01 100.7 123 29 105/55 (72) 95 Nasal Cannula 4.00 10/28/17 20:01 123 29 94 Nasal Cannula 4.00 10/28/17 19:55 100.9 123 29 104/55 (71) 93 10/29/17 10/29/17 10/29/17 07:00 15:00 23:00 Intake Total 4350 ml Output Total 200 ml Balance 4150 ml Physical Exam remains somnolent no palpable pulses feet cool but motor intact Laboratory Laboratory Tests Test 10/28/17 20:15 10/28/17 23:25 10/29/17 00:00 10/29/17 00:15 White Blood Count 13.3 Red Blood Count 4.49 Hemoglobin 13.9 Hematocrit 41.2 Mean Corpuscular Volume 91.7 Mean Corpuscular Hemoglobin 30.9 Mean Corpuscular Hemoglobin Concent 33.7 Red Cell Distribution Width 13.1 Platelet Count 125 Mean Platelet Volume 8.9 Neutrophils (%) (Auto) 90.7 Lymphocytes (%) (Auto) 4.3 Monocytes (%) (Auto) 4.6 Eosinophils (%) (Auto) 0.1 Basophils (%) (Auto) 0.3 Neutrophils # (Auto) 12.1 Lymphocytes # (Auto) 0.6 Monocytes # (Auto) 0.6 Eosinophils # (Auto) 0.0 Basophils # (Auto) 0.0 CBC Comment AUTO DIFF Differential Total Cells Counted 100 Neutrophils % (Manual) 59 Band Neutrophils % 28 Lymphocytes % 6 Monocytes % 4 Neutrophils # (Manual) 12.0 Metamyelocytes 3 Differential Comment FINAL DIFF MANUAL Toxic Vacuolation PRESENT Dohle Bodies PRESENT Platelet Estimate LOW Platelet Morphology Comment NORMAL Red Cell Morphology Comment NORMAL Prothrombin Time 12.7 Prothromb Time International Ratio 1.3 Activated Partial Thromboplast Time 25.6 Blood Urea Nitrogen 29 Creatinine 2.85 Random Glucose 103 Total Protein 6.5 Albumin 2.6 Calcium Level 8.3 Magnesium Level 2.4 Alkaline Phosphatase 144 Aspartate Amino Transf (AST/SGOT) 205 Alanine Aminotransferase (ALT/SGPT) 117 Total Bilirubin 5.5 Sodium Level 142 Potassium Level 3.8 Chloride Level 108 Carbon Dioxide Level 16.0 Anion Gap 18 Estimat Glomerular Filtration Rate 22 Lactic Acid Level 7.4 3.5 Total Creatine Kinase 1061 Creatine Kinase MB 5.2 Creatine Kinase MB % 0.5 Troponin I 0.07 0.05 Lipase 41 Urine Color YELLOW Urine Turbidity Slightly Urine pH 5.0 Urine Specific [place] GREATER THAN 1.035 Urine Protein 100 Urine Glucose (UA) 100 Urine Ketones NEG Urine Occult Blood LARGE Urine Nitrite NEG Urine Bilirubin LARGE Urine Urobilinogen 1.0 Urine Leukocyte Esterase NEG Urine RBC 3 Urine WBC 28 Urine WBC Clumps RARE Urine Squamous Epithelial Cells 1 Urine Transitional Epithelial Cells <1 Urine Renal Epithelial Cells 1 Urine Bacteria RARE Urine Hyaline Casts 3 Urine Granular Casts 2 Urine Mucus FEW Microscopic Urinalysis Comment CATH-CULTURE IND Test 10/29/17 00:30 10/29/17 03:55 10/29/17 06:01 Nasal Screen MRSA (PCR) MRSA NOT DETECTED White Blood Count 17.2 Red Blood Count 4.36 Hemoglobin 13.7 Hematocrit 40.9 Mean Corpuscular Volume 93.9 Mean Corpuscular Hemoglobin 31.3 Mean Corpuscular Hemoglobin Concent 33.4 Red Cell Distribution Width 13.7 Platelet Count 90 Mean Platelet Volume 8.5 Neutrophils (%) (Auto) 91.7 Lymphocytes (%) (Auto) 5.6 Monocytes (%) (Auto) 2.1 Eosinophils (%) (Auto) 0.4 Basophils (%) (Auto) 0.2 Neutrophils # (Auto) 15.8 Lymphocytes # (Auto) 1.0 Monocytes # (Auto) 0.4 Eosinophils # (Auto) 0.1 Basophils # (Auto) 0.0 CBC Comment AUTO DIFF Differential Total Cells Counted 100 Neutrophils % (Manual) 47 Band Neutrophils % 24 Lymphocytes % 6 Monocytes % 1 Neutrophils # (Manual) 16.0 Metamyelocytes 19 Myelocytes 3 Differential Comment FINAL DIFF MANUAL Atypical Lymphocytes Toxic Vacuolation PRESENT Dohle Bodies PRESENT Platelet Estimate LOW Platelet Morphology Comment NORMAL Crenated Cell 1+ Acanthocytes OCC Prothrombin Time 13.6 Prothromb Time International Ratio 1.3 Activated Partial Thromboplast Time 236.9 148.0 Blood Urea Nitrogen 30 Creatinine 2.23 Random Glucose 113 Total Protein 5.9 Albumin 2.4 Calcium Level 6.8 Phosphorus Level 5.1 Magnesium Level 2.3 Alkaline Phosphatase 95 Aspartate Amino Transf (AST/SGOT) 297 Alanine Aminotransferase (ALT/SGPT) 114 Total Bilirubin 4.8 Sodium Level 142 Potassium Level 4.2 Chloride Level 113 Carbon Dioxide Level 17.2 Anion Gap 12 Estimat Glomerular Filtration Rate 29 Lactic Acid Level 1.9 Protein Corrected Calcium 7.4 Troponin I 0.06 Date/Time Source Procedure Growth Status 10/28/17 20:20 Blood Peripheral Aerobic Blood Culture Pending Received 10/28/17 20:20 Blood Peripheral Anaerobic Blood Culture Pending Received 10/29/17 00:00 Urine Catheterized Urine Urine Culture Pending Received Imaging Last 48 hours Impressions Chest X-Ray 10/28/172010 Signed Impressions: Service Date/Time: Saturday, October 28, 2017 20:20 - CONCLUSION: Left lower lobe infiltrate. Mild cardiomegaly. Juanjose Mckeon Jr., MD Aorta w/Runoff CTA 10/28/17 0000 Signed Impressions: Service Date/Time: Saturday, October 28, 2017 21:50 - CONCLUSION: 1. Acute occlusion of the left inflow with concern for short segment occlusion involving the distal right inflow. This raises concern for an embolic event. 2. Right lower extremity shows scattered disease throughout the common femoral artery, SFA and qajgd-qyt-oqhz popliteal artery with three-vessel runoff to the foot. 3. Left lower extremity with reconstitution of the common femoral artery with diseased out flow and two vessel runoff to the foot as detailed above. 4. 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 5. Hepatic steatosis. 6. Cholelithiasis. Juanjose Mckeon Jr., MD Assessment and Plan Plan Pt adm with acute limb ischemia, remains motor intact on hep gtt. 1. Continue hep gtt; follow plt (may to today) 2. unclear etiology of hyperbilirubinemia and clinical jaundice 3. creatinine improving, continue to monitor 4. If loses motor function, will need emergent surgery. continue neurovascular checks. Otherwise, will need elective inflow procedure (ax-fem-fem). 5. Rec case management consult - pt takes care of demented father will follow closely. Saurav Lopez MD FACS RPVI financial services representative [facility] - Heart and Vascular Surgery at [facility] [phone] Saurav Lopez MD October 29, 2017 09:09
[2017-10-29] MEDS: PIPERACIL-TAZO 3.375 GM PREMIX 50 ML IV SCH ×2 (11:30→17:04)
--- NOTE | 2017-10-29 11:40 | HHI.CCPN ---
Subjective Remarks/Hospital Course 67-year-old male presents to the emergency department via EMS for evaluation of shortness of breath and pain and numbness to the left leg. Patient believes that he is shortness of breath is related to the pain in his leg. He cannot feel his leg from his groin down. He denies any history of the same. He does report history of COPD. He denies any known fevers or chills. He denies chest pain. Patient received 1 L normal saline bolus via EMS. Patient denies any history of bleeding or blood clots. No recent surgery or travel. No hemoptysis. No history of DVT/PE. He denies leg edema. Patient states the pain is 10/10 to the left leg. No exacerbating or alleviating factors. Moderate severity. 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 The right inflow is heavily diseased as well. The patient was evaluated by vascular surgeon business integration manager and was immediately started on heparin drip. SUBJ 10/29: Remains critically ill, encephalopathy. 4 out of 4 bottles positive for GNR. I will change Rocephin to Zosyn renally dosed to cover for Pseudomonas also. Continue azithromycin. Creatinine still elevated but slightly improved. WBC count slightly increased 17.2 now with 24% bands. Source of GNR sepsis could be either UTI or pneumonia. Will consult ID as well. Remains on IV heparin for acute left limb ischemia Objective Vital Signs Date Time Temp Pulse Resp B/P (MAP) Pulse Ox O2 Delivery O2 Flow Rate FiO2 10/29/17 11:00 83 15 137/64 (88) 96 10/29/17 08:04 97.9 10/29/17 07:39 Simple Mask 8.00 Intake and Output 10/29/17 10/29/17 10/30/17 08:00 16:00 00:00 Intake Total 4350 ml Output Total 200 ml Balance 4150 ml Result Diagram: 10/29/17 0355 10/29/17 0355 Imaging Last 24 hours Impressions Chest X-Ray 10/28/172010 Signed Impressions: Service Date/Time: Saturday, October 28, 2017 20:20 - CONCLUSION: Left lower lobe infiltrate. Mild cardiomegaly. Juanjose Mckeon Jr., MD Objective Remarks GENERAL: Well-nourished, well-developed patient. Moderate respiratory distress , somnolent SKIN: Warm and dry. HEAD: Normocephalic. EYES: No scleral icterus. No injection or drainage. NECK: Supple, trachea midline. No JVD or lymphadenopathy. CARDIOVASCULAR: Regular rate and rhythm without murmurs, gallops, or rubs. RESPIRATORY: Breath sounds equal bilaterally. Some accessory muscle use. Bilateral few crackles GASTROINTESTINAL: Abdomen soft, non-tender, nondistended. MUSCULOSKELETAL: No cyanosis, or edema. Left foot cool to touch. Bilateral DP + ve with Doppler NEURO EXAM: Lethargic but wakes up easily follows commands, no focal deficits. A/P Assessment and Plan Acute hypoxemic respiratory failure COPD exacerbation Left lower lobe pneumonia -DuoNeb scheduled and as needed -Steroids IV. Start on Symbicort -Pulmonary consultation prior vascular surgery -Change antibiotics to Zosyn and azithromycin -Follow-up sputum and blood cultures, urine culture Acute on chronic left limb ischemia -CTA showed severe aorto-iliac occlusive disease with left iliac thrombosis -Significant calcifications and peripheral vascular disease -Series of EKGs and troponins, essentially negative, 2D echo a.m. -Patient is already on a heparin drip due to iliac artery occlusion -Start aspirin 81 mg daily Acute kidney injury -Unknown baseline -Hydration -Strict I's and O's -Creatinine and electrolyte levels GNR bacteremia/severe sepsis UTI -Source of bacteremia could be pneumonia or UTI -Discontinue Rocephin, start Zosyn and continue azithromycin -Follow-up blood urine and sputum culture -ID consult. 2D echo is pending DVT GI prophylaxis -Vickey's and SCDs -Heparin drip -Pepcid Critical Care: The total critical care time was 35 minutes. Time to perform other separately billable procedures was not included in the critical care time. Patient remains critically ill with severe sepsis, respiratory failure COPD exacerbation pneumonia and UTI Anil Yip MD October 29, 2017 11:40
[2017-10-29] MEDS: ASPIRIN 81 MG CHEW TAB CHEW SCH (11:45)
--- NOTE | 2017-10-29 13:24 | MB ---
cc: Charles Morales MD DATE: 10/29/2017 REQUESTING PROVIDER: Dr. Yip. REASON FOR CONSULTATION: Gram-negative sepsis. HISTORY OF PRESENT ILLNESS: This is a 67-year-old white male who presented to the Emergency Department with shortness of breath and left leg pain. The patient is currently on oxygen via face mask. He is on 6 L O2. His sister is at bedside. The patient is somewhat somnolent and drifts off to sleep during my interview, but awakens for short periods. When he presented to the Emergency Department, his heart rate was 102 and temperature was 100.7. White blood cell count was elevated at 13.3 and lactic acid level was 7.4. Chest x-ray was performed and showed left lung infiltrate. Urinalysis showed 28 white cells with white blood cell clumps. Blood culture had gram-negative chelsey in 4 bottles. Urine culture is pending. The patient's sister mentioned that 3 days ago, he was lifting a recycle bin, which was filled with water from the heavy rain and he felt something pop in his back. She noted that he was using a walker to ambulate. In the Emergency Department, he complained of severe pain in his left leg as well as numbness in the left leg. The sister mentioned that he would have to stop for periods of time whenever he would go out prior to the incident with lifting up the heavy load. She reports that he has had back problems from work injury in the past. The patient denies dysuria. He was complaining of chills prior to presenting to the Emergency Department. This occurred on the night that he presented. PAST MEDICAL HISTORY: COPD, coronary artery disease, hernia repair. ALLERGIES: NO KNOWN DRUG ALLERGIES. MEDICATIONS: 1. Piperacillin/tazobactam. 2. Azithromycin. 3. Aspirin. 4. Pepcid. 5. Elvira-Colace. 6. Cardizem. 7. Methylprednisolone. 8. Inhaled albuterol. 9. Dilaudid p.r.n. SOCIAL HISTORY: No tobacco. The patient quit smoking in 07/2017. No alcohol and no illicit drugs. The patient takes care of his elderly father at home who has dementia. FAMILY HISTORY: Noncontributory. REVIEW OF SYSTEMS: Difficult to obtain since the patient is somnolent. Significant for back pain, numbness in the left leg, shortness of breath. PHYSICAL EXAMINATION: GENERAL: He is a well-developed male who is somnolent. He is in no acute distress. VITAL SIGNS: Temperature 97.9, blood pressure 137/64, respirations 16, heart rate 83. HEENT: Head atraumatic. Extraocular movements grossly intact. Pupils reactive to light. No icterus. Oropharynx with slightly dry mucosa. No visible lesions. NECK: Supple without adenopathy. No swelling. LUNGS: Decreased breath sounds throughout. HEART: Regular rate and rhythm. Distant S1 and S2. No audible murmurs. ABDOMEN: Obese, diminished bowel sounds, soft, no tenderness appreciated. RECTAL: Not performed. EXTREMITIES: No clubbing or cyanosis or edema. Decreased sensation at the plantar aspect of the left foot. Otherwise, sensation is intact. The pulses are decreased throughout including upper and lower extremities. SKIN: No diffuse rash. NEUROLOGIC: No gross focal finding. The patient, however, is somnolent. PSYCHIATRIC: The patient is calm and cooperative. LABORATORY DATA: WBC 17.2; platelets 90,000; hemoglobin 13.7; 91% neutrophils; 5% lymphocytes, including 24% bands. Creatinine 2.23, estimated GFR of 29, sodium 142, total bilirubin 4.8, AST 297, ALT 114. IMPRESSION: 1. Severe sepsis due to gram-negative bacteria. Very likely secondary to urinary tract infection. 2. UTI. 3. Pneumonia. 4. Leukocytosis secondary to infection. 5. Acute kidney disease likely resulting from sepsis. RECOMMENDATIONS: 1. Continue piperacillin/tazobactam. 2. Continue azithromycin. 3. Monitor blood culture. 4. Monitor white blood cell count. 5. Monitor renal function. 6. Follow the clinical status. Antibiotic adjustments will be made depending on the patient's cultures. Currently, he is critically ill. I will follow the patient along with you and will make further recommendations upon followup. MD PRINCESS Reyna/CLIFTON , 12:38 PM , 01:22 PM DENNIS
--- NOTE | 2017-10-29 16:39 | EKG ---
Date Performed: 10/29/2017 Time Performed: 07:23:50 PTAGE: 67 years EKG: Sinus rhythm NORMAL ECG PREVIOUS TRACING : 10/28/2017 23.45 Since the previous tracing, no significant change noted DOCTOR: Georgina Santiago Interpretating Date/Time 10/29/2017 16:37:31
--- NOTE | 2017-10-29 16:39 | EKG ---
Date Performed: 10/28/2017 Time Performed: 23:45:43 PTAGE: 67 years EKG: Sinus rhythm NORMAL ECG NO PREVIOUS TRACING DOCTOR: Georgina Santiago Interpretating Date/Time 10/29/2017 16:38:17
--- NOTE | 2017-10-29 19:27 | MB ---
cc: Dennis Johnson MD, Arjun D MD DATE: 10/29/2017 REQUESTING PHYSICIAN: Dr. Hood REASON FOR CONSULTATION: COPD and pulmonary management. HISTORY OF PRESENT ILLNESS: Mr. Nicolas is a 67-year-old male with longstanding history of smoking, which he finally quit 2 months ago. He has a history of COPD, does not use any oxygen. He does have a couple of inhalers, which he uses at home. The patient was brought to the hospital with pain in the left leg going on for 2 days or so. The patient's sister stated that he tried to pull some barrel which was filled with water and he started having pain. The pain was getting worse. He was getting more short of breath. He was brought to the hospital. He had a workup done and was found to have a cold left leg. He was started on IV heparin being followed by the vascular surgeon. He had a chest x-ray which showed left lung infiltrate. His urine shows 28 WBCs in the urine. CBC showed WBC count 17.2, hemoglobin 13.7, hematocrit 40.9, MCV of 93, platelet count 90. Sodium 142, potassium 4.2, chloride 113, CO2 of 17, BUN 30, creatinine 2.23. Chest x-ray shows left basal infiltrate. Blood culture, 4/4 blood cultures growing gram-negative rods. PAST MEDICAL HISTORY: Significant for history of COPD, hypertension, coronary artery disease, hernia surgery. CURRENT MEDICATIONS: 1. Zithromax 2. Zosyn IV, 3. Famotidine 10 mg 4. Diltiazem 240 mg a day, 5. Solu-Medrol 40 mg q.6 hours. 6. Albuterol and Atrovent nebulizer treatment 7. Dilaudid for pain. 8. Heparin drip. ALLERGIES: NO KNOWN DRUG ALLERGIES. SOCIAL HISTORY: He has a long history of smoking more than 40 years. He quit 2 months ago. 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 FAMILY HISTORY: He is , lives with his father and takes care of his father who has dementia. He has 4 children. REVIEW OF SYSTEMS: Normally he is up, around and active. No DVT or pulmonary embolism. No vascular problem in the past, no malignancy. PHYSICAL EXAMINATION. GENERAL: Well-built, well-nourished male somewhat lethargic, but answers appropriately. He is on a Ventimask. VITAL SIGNS: His blood pressure 147/67, heart rate 99, respirations 18, temperature 97. HEENT: Pupils are equal and reactive to light. Oral mucosa and nasal mucosa normal. NECK: Supple. No JVD noted. CHEST: He has end-expiratory rhonchi. CARDIOVASCULAR: S1, S2 normal. ABDOMEN: Benign. EXTREMITIES: His left leg is cold, palpable pulses present. CENTRAL NERVOUS SYSTEM: Moves all extremities. IMPRESSION: 1. Sepsis. 2. Chronic obstructive pulmonary disease, mild exacerbation. 3. Left basilar infiltrate. 4. Urinary tract infection 5. Encephalopathy. 6. Cold left leg. PLAN: We will continue antibiotic per Infectious Disease recommendation. IV Solu-Medrol, aerosol treatments, supplement his oxygen with Ventimask. Check his final cultures. Vascular surgery is following the patient and he is on heparin drip. Further treatment will depend on the course in the hospital. Thank you, Erwin, for this consult. I discussed the patient's condition with his sister at the bedside. MD MANINDER Peter/ , 06:26 PM , 07:26 PM
[2017-10-29] MEDS: AZITHROMYCIN INJ 500 MG in SODIUM CHLOR 0.9% 250 ML INJ 250 ML IV SCH (21:10)
[2017-10-30] VITALS (22 sets, daily range): BP systolic 89–121; BP diastolic 51–64; PULSE 84–153; RESP 12–23; TEMP 97.5–98.8; O2SAT 66–96
[2017-10-30] MEDS: PIPERACIL-TAZO 3.375 GM PREMIX 50 ML IV SCH ×5 (00:06→23:24)
[2017-10-30] MEDS: methylPREDNISolone SOD SUCC 40 MG/1 ML VIAL IV PUSH SCH ×5 (00:06→23:24)
[2017-10-30 03:39] LABS: AUTOMATED NEUTROPHIL # 19.3 TH/MM3 (1.8-7.7); BASOPHIL % 0.1 % (0.0-2.0); EOSINOPHIL # 0.5 TH/MM3 (0-0.4); EOSINOPHIL % 2.3 % (0.0-4.0); HEMATOCRIT 38.7 % (39.0-51.0); HEMOGLOBIN 12.8 GM/DL (13.0-17.0); LYMPH % 2.6 % (9.0-44.0); LYMPHOCYTE # 0.5 TH/MM3 (1.0-4.8); MEAN CELL VOLUME 94.6 FL (80.0-100.0); MEAN CORPUSCULAR HEMOGLOBIN 31.3 PG (27.0-34.0); MEAN CORPUSCULAR HGB CONC 33.1 % (32.0-36.0); MEAN PLATELET VOLUME 9.9 FL (7.0-11.0); MONO % 1.9 % (0.0-8.0); MONOCYTE # 0.4 TH/MM3 (0-0.9); NEUT % 93.1 % (16.0-70.0); PLATELET COUNT 31 TH/MM3 (150-450); RED BLOOD COUNT 4.09 MIL/MM3 (4.50-5.90); RED CELL DISTRIBUTION WIDTH 14.2 % (11.6-17.2); WHITE BLOOD COUNT 20.8 TH/MM3 (4.0-11.0)
[2017-10-30] MEDS: RESP: ALBUTEROL 2.5 MG/IPRATROPIUM 0.5 MG NEB (SCH) NEB ×6 (03:59→23:31)
[2017-10-30] MEDS: CHLORHEXIDINE GLUCONATE 2 % 1 PACK (2 CLOTHS) TOP SCH (04:00)
[2017-10-30 04:01] LABS: BICARBONATE 14.8 MEQ/L (21.0-32.0); CALCIUM 7.1 MG/DL (8.5-10.1); CALCIUM-PROTEIN CORRECTED 7.7 MG/DL (8.5-10.1); CREATININE 2.69 MG/DL (0.60-1.30); TOTAL BILIRUBIN ADULT 6.3 MG/DL (0.2-1.0); TOTAL PROTEIN 5.9 GM/DL (6.4-8.2)
[2017-10-30] MEDS: HEPARIN-D5W 25,000 U/250 ML 250 ML IV PRN (05:22)
--- NOTE | 2017-10-30 08:10 | PD.VS.PN ---
Subjective Subjective/Hospital Course pt remains motor intact. plt dropped to 30's no bleeding episodes Objective Vitals/I&O Date Time Temp Pulse Resp B/P (MAP) Pulse Ox O2 Delivery O2 Flow Rate FiO2 10/30/17 07:43 95 Nasal Cannula 4.00 10/30/17 06:00 88 10/30/17 04:00 98.8 86 19 93/55 (68) 93 10/30/17 04:00 86 10/30/17 02:00 84 10/30/17 00:00 98.0 85 13 108/59 (75) 95 10/30/17 00:00 85 10/29/17 22:00 83 10/29/17 20:00 86 10/29/17 20:00 98.9 86 15 113/57 (75) 92 10/29/17 19:43 91 Nasal Cannula 4.00 10/29/17 19:00 85 Nasal Cannula 4.00 10/29/17 15:00 99 19 147/67 (93) 92 10/29/17 14:00 97 18 139/74 (95) 91 10/29/17 14:00 77 10/29/17 13:30 93 17 142/68 (92) 91 10/29/17 13:00 91 16 132/60 (84) 93 10/29/17 12:31 95 19 137/63 (87) 91 10/29/17 12:00 98.0 91 15 161/78 (105) 96 10/29/17 12:00 82 10/29/17 11:00 83 15 137/64 (88) 96 10/29/17 10:30 81 11 128/63 (84) 96 10/29/17 10:00 77 12 111/54 (73) 93 10/29/17 10:00 77 10/29/17 09:30 77 14 114/58 (76) 94 10/29/17 09:00 74 12 104/54 (71) 96 10/30/17 10/30/17 10/30/17 07:00 15:00 23:00 Intake Total 590 ml Output Total 435 ml Balance 155 ml Physical Exam feet cool no pulses motor intact skin intact Laboratory Laboratory Tests Test 10/29/17 13:02 10/29/17 19:53 10/30/17 03:15 Activated Partial Thromboplast Time 33.1 88.2 57.2 White Blood Count 20.8 Red Blood Count 4.09 Hemoglobin 12.8 Hematocrit 38.7 Mean Corpuscular Volume 94.6 Mean Corpuscular Hemoglobin 31.3 Mean Corpuscular Hemoglobin Concent 33.1 Red Cell Distribution Width 14.2 Platelet Count 31 Mean Platelet Volume 9.9 Neutrophils (%) (Auto) 93.1 Lymphocytes (%) (Auto) 2.6 Monocytes (%) (Auto) 1.9 Eosinophils (%) (Auto) 2.3 Basophils (%) (Auto) 0.1 Neutrophils # (Auto) 19.3 Lymphocytes # (Auto) 0.5 Monocytes # (Auto) 0.4 Eosinophils # (Auto) 0.5 Basophils # (Auto) 0.0 CBC Comment AUTO DIFF Differential Comment AUTO DIFF CONFIRMED Platelet Estimate LOW Platelet Morphology Comment NORMAL Blood Urea Nitrogen 49 Creatinine 2.69 Random Glucose 182 Total Protein 5.9 Albumin 2.0 Calcium Level 7.1 Alkaline Phosphatase 107 Aspartate Amino Transf (AST/SGOT) 289 Alanine Aminotransferase (ALT/SGPT) 112 Total Bilirubin 6.3 Sodium Level 143 Potassium Level 4.4 Chloride Level 114 Carbon Dioxide Level 14.8 Anion Gap 14 Estimat Glomerular Filtration Rate 24 Protein Corrected Calcium 7.7 Date/Time Source Procedure Growth Status 10/28/17 20:20 Blood Peripheral Aerobic Blood Culture - Preliminary Gram Negative Enrico Resulted 10/28/17 20:20 Anaerobic Blood Culture - Preliminary Gram Negative Enrico Resulted 10/29/17 00:00 Urine Catheterized Urine Urine Culture Pending Received Imaging Last 48 hours Impressions Chest X-Ray 10/28/172010 Signed Impressions: Service Date/Time: Saturday, October 28, 2017 20:20 - CONCLUSION: Left lower lobe infiltrate. Mild cardiomegaly. Juanjose Mckeon Jr., MD Assessment and Plan Plan Pt adm with acute limb ischemia, remains motor intact on hep gtt. 1. Continue anticoagulation; stop hep given plt drop; check HIT and restart with other anticoagulant 2. unclear etiology of hyperbilirubinemia and clinical jaundice - possible GNR but would trend 3. creatinine worse; follow UOP 4. If loses motor function, will need emergent surgery. continue neurovascular checks. Otherwise, will need elective inflow procedure (ax-fem-fem). 5. Rec case management consult - pt takes care of demented father will follow closely. Saurav Lopez MD FACS RPVI legal clerk [facility] - Heart and Vascular Surgery at [facility] [phone] Saurav Lopez MD October 30, 2017 08:10
[2017-10-30] MEDS: DOCUSATE SODIUM 50 MG/SENNA 8.6 MG TAB PO SCH ×2 (09:00→20:35)
[2017-10-30] MEDS: DILTIAZEM-CD 240 MG CAP ER PO SCH (09:02)
[2017-10-30] MEDS: FAMOTIDINE 20 MG/2 ML VIAL IV PUSH SCH ×2 (09:02→20:41)
[2017-10-30] MEDS: ASPIRIN 81 MG CHEW TAB CHEW SCH (09:02)
[2017-10-30] MEDS: SODIUM CHLORIDE 0.9% FLUSH 10 ML FLUSH IV FLUSH SCH ×2 (09:03→20:35)
[2017-10-30] MEDS: SODIUM CHLOR 0.9% 1000 ML INJ 1,000 ML IV SCH ×2 (09:03→17:06)
[2017-10-30] MEDS: HYDROmorphone HCL PF 0.5 MG/0.5 ML SYRINGE IV PRN ×2 (09:03→17:59)
--- NOTE | 2017-10-30 09:36 | RADRPT ---
EXAM DATE: 10/30/2017 4:32 AM EDT AGE/SEX: 67 years / Male INDICATIONS: Short of breath. CLINICAL DATA: This is the patient's subsequent encounter. Patient reports that signs and symptoms h ave been present for 3 days and indicates a pain score of 0/10. MEDICAL/SURGICAL HISTORY: None. None. COMPARISON: No prior exams available for comparison. FINDINGS: Single AP view of the chest demonstrates mild rotation of the patient. The lungs appear adequately in flated with bilateral diffuse nodular airspace opacities. There is obscuration of the right hemidiaph ragm concerning for atelectasis, consolidation or fluid. Heart size appears grossly normal. There is diffuse cephalization of pulmonary vasculature. Osseous structures are unremarkable. CONCLUSION: Radiographic findings consistent with congestive heart failure and pulmonary edema with right lower l obe atelectasis/consolidation or small pleural fluid. Infectious pneumonia can also cause this appear ance. Electronically signed by: Alem Pritchett MD 10/30/2017 9:34 AM EDT
--- NOTE | 2017-10-30 10:08 | RADRPT ---
EXAM DATE: 10/29/2017 2:10 PM EDT AGE/SEX: 67 years / Male INDICATIONS: Left leg ischemia CLINICAL DATA: This is the patient's initial encounter. Patient reports that signs and symptoms have been present for 3 days and indicates a pain score of 3/10. MEDICAL/SURGICAL HISTORY: . Pneumonia, Sepsis . COMPARISON: No prior [facility] exams available for comparison. TECHNIQUE: Four-cuff ankle and brachial pressures were obtained. Pulse cuff waveform tracings of the ankles were recorded, and ankle-brachial indices were calculated. PRESSURES (mmHg): Brachial (arm) : RIGHT: IV site, LEFT: 111 Ankle : RIGHT: 60, LEFT: 16 Toe : RIGHT: 0, LEFT: 0 DAVID : RIGHT: 0.54, LEFT: 0.14 PULSED CUFF WAVEFORMS: The waveforms are diminished bilaterally. CONCLUSION: 1. Abnormal ABIs, left greater than right. The left DAVID is significantly diminished at 0.14. Electronically signed by: Ventura Dozier MD 10/29/2017 2:20 PM EDT
--- NOTE | 2017-10-30 10:10 | HHI.CCPN ---
Subjective Remarks/Hospital Course 67-year-old male presents to the emergency department via EMS for evaluation of shortness of breath and pain and numbness to the left leg. Patient believes that he is shortness of breath is related to the pain in his leg. He cannot feel his leg from his groin down. He denies any history of the same. He does report history of COPD. He denies any known fevers or chills. He denies chest pain. Patient received 1 L normal saline bolus via EMS. Patient denies any history of bleeding or blood clots. No recent surgery or travel. No hemoptysis. No history of DVT/PE. He denies leg edema. Patient states the pain is 10/10 to the left leg. No exacerbating or alleviating factors. Moderate severity. 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 The right inflow is heavily diseased as well. The patient was evaluated by vascular surgeon sedimentationist and was immediately started on heparin drip. SUBJ 10/29: Remains critically ill, encephalopathy. 4 out of 4 bottles positive for GNR. I will change Rocephin to Zosyn renally dosed to cover for Pseudomonas also. Continue azithromycin. Creatinine still elevated but slightly improved. WBC count slightly increased 17.2 now with 24% bands. Source of GNR sepsis could be either UTI or pneumonia. Will consult ID as well. Remains on IV heparin for acute left limb ischemia 10/30: platelets falling >50% again today. Cr still rising, but could be ATN/ contrast nephropathy. blood cultures growing e. coli by PCR, full speciation to follow. urine culture pending. discussed case with Dr. Lopez, will stop heparin , start argatroban and send HIT/CHARLEEN. denies complaints for me, but does have objective tenderness on palpation, RUQ. Objective Vital Signs Date Time Temp Pulse Resp B/P (MAP) Pulse Ox O2 Delivery O2 Flow Rate FiO2 10/30/17 07:43 95 Nasal Cannula 4.00 10/30/17 06:00 88 10/30/17 04:00 98.8 19 93/55 (68) Intake and Output 10/30/17 10/30/17 10/31/17 08:00 16:00 00:00 Intake Total 590 ml Output Total 435 ml Balance 155 ml Result Diagram: 10/30/17 0315 10/30/17 0315 Imaging Last 24 hours Impressions Chest X-Ray 10/28/172010 Signed Impressions: Service Date/Time: Saturday, October 28, 2017 20:20 - CONCLUSION: Left lower lobe infiltrate. Mild cardiomegaly. Juanjose Mckeon Jr., MD Objective Remarks GENERAL: middle-aged male, lying in bed. SKIN: Warm and dry. HEAD: Normocephalic. EYES: No scleral icterus. No injection or drainage. NECK: Supple, trachea midline. No JVD. CARDIOVASCULAR: normal rate, regular rhythm. sinus. RESPIRATORY: equal chest rise. nc o2. no accessory muscle use today. GASTROINTESTINAL: Abdomen soft, mildly tender to palpation over RUQ. questionably positive Rucker's sign. nondistended. no guarding. no rebound. MUSCULOSKELETAL: No cyanosis, or edema. Left foot cool to touch. Bilateral DP + ve with Doppler NEURO EXAM: awake, follows commands. A/P Assessment and Plan Assessment: 67yM with limb ischemia, severe sepsis and associated multiorgan failure including shock liver, acute kidney injury. remains critically ill and organs are worse today than yesterday. will order gallbladder ultrasound. argatroban, hold heparin, send HIT/CHARLEEN. Acute hypoxemic respiratory failure COPD exacerbation Left lower lobe pneumonia -DuoNeb scheduled and as needed -Steroids IV. Start on Symbicort -Pulmonary consultation prior vascular surgery -continue Zosyn and azithromycin: narrow spectrum based on speciation and sensitivities. 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 -continue full anticoagulation. -Start aspirin 81 mg daily Acute kidney injury -Unknown baseline -Hydration -Strict I's and O's -Creatinine and electrolyte levels - likely ATN from sepsis and may be component of contrast nephropathy. will trend. GNR bacteremia/severe sepsis UTI -Source of bacteremia could be pneumonia or UTI - Zosyn and continue azithromycin -Follow-up blood urine and sputum culture -ID consult. 2D echo is pending - gallbladder u/s. Acute metabolic acidosis - worsening today on BMP - could be sepsis vs. renal insufficiency - trend on daily bmp Acute hepatic dysfunction Hyperbilirubinemia Transaminitis - trend LFTs - trend coags - gallbladder ultrasound - most likely secondary to severe sepsis. Worsening acute thrombocytopenia - most likely etiology is sepsis with consumption - will send HIT/CHARLEEN - stop heparin - start argatroban DVT GI prophylaxis -Vickey's and SCDs -Heparin drip -Pepcid Dispo: needs to remain in ICU. all organ systems worse today. Critical Care: The total critical care time was 37 minutes. Time to perform other separately billable procedures was not included in the critical care time. Patient remains critically ill with severe sepsis, respiratory failure COPD exacerbation pneumonia and UTI Didier Rahman MD October 30, 2017 10:10
[2017-10-30] MEDS ORDERED: ARGATROBAN INJ 250 MG in SODIUM CHLOR 0.9% 250 ML INJ 250 ML IV PRN (10:15)
[2017-10-30] MEDS ORDERED: PHARMACY INFORMATION OTHER ONE (10:15)
--- NOTE | 2017-10-30 11:47 | RADRPT ---
EXAM DATE: 10/30/2017 11:36 AM EDT AGE/SEX: 67 years / Male INDICATIONS: Right upper quadrant abdominal pain. CLINICAL DATA: This is the patient's initial encounter. Patient reports that signs and/or symptoms h ave been present for 4 - 6 days and indicates a pain score of 5/10. LOCATION: LATERALITY: MEDICAL/SURGICAL HISTORY: Chronic obstructive pulmonary disease. COMPARISON: No prior [place] exams available for comparison MEASUREMENTS (cm x cm x cm): Liver:__ 17.8 cm length Common Bile Duct:__ 7mm Right Kidney:__ 11.1 x 4.2 x 4.2 cm FINDINGS: Liver: There is diffuse increased echogenicity throughout the liver. No dilated biliary ducts. No ev idence of ascites. Portal Vein: Hepatopedal flow seen in portal vein. Common Duct: No intraluminal mass or stone visualized. Gallbladder: Multiple gallstones in the gallbladder. The gallbladder wall is thickened at 4 mm. No f luid around the gallbladder. Pancreas: The visualized portions are within normal limits. There was limited visualization of the pancreas. Right Kidney: No mass or hydronephrosis. CONCLUSION: 1. Fatty infiltration of the liver. 2. Multiple stones in the gallbladder. No biliary tract obstruction. Electronically signed by: Ventura Dozier MD 10/30/2017 11:45 AM EDT
--- NOTE | 2017-10-30 12:07 | HHI.IDPN ---
Note Infectious Disease Note Patient says he feels better. Still feels very weak. Denies chills. Afebrile. Blood cultures E. coli in 1 bottle. The other 3 bottles has gram-negative rods yet to be identified. Urine culture is pending. White blood cell count is higher. 67-year-old white male who presented to the Emergency Department with shortness of breath and left leg pain. In the emergency Department his heart rate was 102 and temperature was 100.7. White blood cell count was elevated at 13.3 and lactic acid level was 7.4. Chest x-ray showed left lung infiltrate. Urinalysis showed 28 white cells with white blood cell clumps. PAST MEDICAL HISTORY: COPD, coronary artery disease, hernia repair. ALLERGIES: NO KNOWN DRUG ALLERGIES. Current Medications Medications (Trade) Dose Ordered Sig/Olesya Route PRN Reason Start Time Stop Time Status Last Admin Dose Admin Sodium Chloride 1,000 ml @ 124 mls/hr Q8H4M IV 10/28/17 23:00 10/30/17 09:03 Sodium Chloride (NS Flush) 2 ml UNSCH PRN IV FLUSH FLUSH AFTER USING IV ACCESS 10/28/17 22:15 Sodium Chloride (NS Flush) 2 ml BID IV FLUSH 10/29/17 09:00 10/30/17 09:03 Acetaminophen (Tylenol) 650 mg Q6H PRN PO PAIN 1-5 AND/OR FEVER >101F 10/28/17 22:15 Hydromorphone HCl (Dilaudid Pf Inj) 1 mg Q4H PRN IV PAIN SCALE 6 TO 10 10/28/17 22:30 10/30/17 09:03 Famotidine (Pepcid Inj) 10 mg Q12HR IV PUSH 10/29/17 09:00 10/30/17 09:02 Ondansetron HCl (Zofran Inj) 4 mg Q6H PRN IV PUSH NAUSEA OR VOMITING 10/28/17 22:15 Temazepam (Restoril) 15 mg HS PRN PO INSOMNIA 10/28/17 22:15 Albuterol/ Ipratropium (Duoneb Neb) 1 ampule Q2HR NEB PRN INH WHEEZING 10/28/17 22:15 Miscellaneous Information [place] [place] [facility] [place] 1 Q361D XX 10/28/17 22:15 10/28/17 22:15 Chlorhexidine Gluconate (Chlorhexidine 2% Cloth) 3 pack Taper DAILY@04 TOP 10/29/17 04:00 10/25/18 03:59 10/29/17 03:16 Chlorhexidine Gluconate (Chlorhexidine 2% Cloth) 3 pack UNSCH PRN TOP HYGIENIC CARE 10/28/17 22:15 Senna/Docusate Sodium (Elvira-Colace) 1 tab BID PO 10/29/17 09:00 10/29/17 08:38 Magnesium Hydroxide (Milk Of Magnesia Liq) 30 ml Q12H PRN PO Mild constipation 10/28/17 22:15 Sennosides (Senokot) 17.2 mg Q12H PRN PO Moderate constipation 10/28/17 22:15 Bisacodyl (Dulcolax Supp) 10 mg DAILY PRN RECTAL SEVERE CONSITIPATION 10/28/17 22:15 Lactulose (Lactulose Liq) 30 ml DAILY PRN PO SEVERE CONSITIPATION 10/28/17 22:15 Methylprednisolone Sodium Succinate (SoluMEDROL INJ) 40 mg Q6HR IV PUSH 10/29/17 00:00 10/30/17 05:21 Albuterol/ Ipratropium (Duoneb Neb) 1 ampule Q4HR NEB NEB 10/29/17 00:00 10/30/17 07:43 Azithromycin 500 mg/Sodium Chloride 250 ml @ 250 mls/hr Q24H IV 10/29/17 22:00 10/29/17 21:10 Diltiazem HCl (Cardizem Cd) 240 mg DAILY PO 10/29/17 09:00 10/30/17 09:02 Piperacillin Sod/ Tazobactam Sod 50 ml @ 100 mls/hr Q6H IV 10/29/17 11:30 10/30/17 05:21 Aspirin (Aspirin Chew) 81 mg DAILY CHEW 10/29/17 11:45 10/30/17 09:02 Argatroban 250 mg/ Sodium Chloride 252.5 ml @ 2.69 mls/hr TITRATE PRN IV aPTT < 50 10/30/17 10:15 SOCIAL HISTORY: No tobacco. The patient quit smoking in 07/2017. No alcohol and no illicit drugs. The patient takes care of his elderly father at home who has dementia. FAMILY HISTORY: Noncontributory. OBJECTIVE: Vital Signs Date Time Temp Pulse Resp B/P (MAP) Pulse Ox O2 Delivery O2 Flow Rate FiO2 10/30/17 10:01 116 17 99/55 (70) 87 10/30/17 10:00 115 10/30/17 09:01 118 23 117/57 (77) 92 10/30/17 08:00 105 10/30/17 08:00 98.6 105 23 111/56 (74) 92 10/30/17 07:43 95 Nasal Cannula 4.00 10/30/17 07:00 90 16 98/56 (70) 89 10/30/17 07:00 89 Nasal Cannula 4.00 10/30/17 06:00 88 10/30/17 04:00 98.8 86 19 93/55 (68) 93 10/30/17 04:00 86 10/30/17 02:00 84 10/30/17 00:00 98.0 85 13 108/59 (75) 95 10/30/17 00:00 85 10/29/17 22:00 83 10/29/17 20:00 86 10/29/17 20:00 98.9 86 15 113/57 (75) 92 10/29/17 19:43 91 Nasal Cannula 4.00 10/29/17 19:00 85 Nasal Cannula 4.00 10/29/17 15:00 99 19 147/67 (93) 92 10/29/17 14:00 97 18 139/74 (95) 91 10/29/17 14:00 77 10/29/17 13:30 93 17 142/68 (92) 91 10/29/17 13:00 91 16 132/60 (84) 93 10/29/17 12:31 95 19 137/63 (87) 91 10/29/17 12:00 98.0 91 15 161/78 (105) 96 10/29/17 12:00 82 Laboratory Tests Test 10/28/17 20:15 10/29/17 03:55 10/30/17 03:15 White Blood Count 13.3 TH/MM3 17.2 TH/MM3 20.8 TH/MM3 Red Blood Count 4.49 MIL/MM3 4.36 MIL/MM3 4.09 MIL/MM3 Hemoglobin 13.9 GM/DL 13.7 GM/DL 12.8 GM/DL Hematocrit 41.2 % 40.9 % 38.7 % Mean Corpuscular Volume 91.7 FL 93.9 FL 94.6 FL Mean Corpuscular Hemoglobin 30.9 PG 31.3 PG 31.3 PG Mean Corpuscular Hemoglobin Concent 33.7 % 33.4 % 33.1 % Red Cell Distribution Width 13.1 % 13.7 % 14.2 % Platelet Count 125 TH/MM3 90 TH/MM3 31 TH/MM3 Mean Platelet Volume 8.9 FL 8.5 FL 9.9 FL Neutrophils (%) (Auto) 90.7 % 91.7 % 93.1 % Lymphocytes (%) (Auto) 4.3 % 5.6 % 2.6 % Monocytes (%) (Auto) 4.6 % 2.1 % 1.9 % Eosinophils (%) (Auto) 0.1 % 0.4 % 2.3 % Basophils (%) (Auto) 0.3 % 0.2 % 0.1 % Neutrophils # (Auto) 12.1 TH/MM3 15.8 TH/MM3 19.3 TH/MM3 Lymphocytes # (Auto) 0.6 TH/MM3 1.0 TH/MM3 0.5 TH/MM3 Monocytes # (Auto) 0.6 TH/MM3 0.4 TH/MM3 0.4 TH/MM3 Eosinophils # (Auto) 0.0 TH/MM3 0.1 TH/MM3 0.5 TH/MM3 Basophils # (Auto) 0.0 TH/MM3 0.0 TH/MM3 0.0 TH/MM3 CBC Comment AUTO DIFF AUTO DIFF AUTO DIFF Differential Total Cells Counted 100 100 Neutrophils % (Manual) 59 % 47 % Band Neutrophils % 28 % 24 % Lymphocytes % 6 % 6 % Monocytes % 4 % 1 % Neutrophils # (Manual) 12.0 TH/MM3 16.0 TH/MM3 Metamyelocytes 3 % 19 % Differential Comment FINAL DIFF MANUAL FINAL DIFF MANUAL AUTO DIFF CONFIRMED Toxic Vacuolation PRESENT PRESENT Dohle Bodies PRESENT PRESENT Platelet Estimate LOW LOW LOW Platelet Morphology Comment NORMAL NORMAL NORMAL Red Cell Morphology Comment NORMAL Myelocytes 3 % Atypical Lymphocytes % Crenated Cell 1+ Acanthocytes OCC Laboratory Tests Test 10/28/17 20:15 10/28/17 23:25 10/29/17 00:15 10/29/17 03:55 Blood Urea Nitrogen 29 MG/DL 30 MG/DL Creatinine 2.85 MG/DL 2.23 MG/DL Random Glucose 103 MG/DL 113 MG/DL Total Protein 6.5 GM/DL 5.9 GM/DL Albumin 2.6 GM/DL 2.4 GM/DL Calcium Level 8.3 MG/DL 6.8 MG/DL Magnesium Level 2.4 MG/DL 2.3 MG/DL Alkaline Phosphatase 144 U/L 95 U/L Aspartate Amino Transf (AST/SGOT) 205 U/L 297 U/L Alanine Aminotransferase (ALT/SGPT) 117 U/L 114 U/L Total Bilirubin 5.5 MG/DL 4.8 MG/DL Sodium Level 142 MEQ/L 142 MEQ/L Potassium Level 3.8 MEQ/L 4.2 MEQ/L Chloride Level 108 MEQ/L 113 MEQ/L Carbon Dioxide Level 16.0 MEQ/L 17.2 MEQ/L Anion Gap 18 MEQ/L 12 MEQ/L Estimat Glomerular Filtration Rate 22 ML/MIN 29 ML/MIN Lactic Acid Level 7.4 mmol/L 3.5 mmol/L 1.9 mmol/L Total Creatine Kinase 1061 U/L Creatine Kinase MB 5.2 NG/ML Creatine Kinase MB % 0.5 % Troponin I 0.07 NG/ML 0.05 NG/ML 0.06 NG/ML Lipase 41 U/L Phosphorus Level 5.1 MG/DL Protein Corrected Calcium 7.4 MG/DL Test 10/30/17 03:15 10/30/17 11:14 Blood Urea Nitrogen 49 MG/DL Creatinine 2.69 MG/DL Random Glucose 182 MG/DL Total Protein 5.9 GM/DL Albumin 2.0 GM/DL Calcium Level 7.1 MG/DL Alkaline Phosphatase 107 U/L Aspartate Amino Transf (AST/SGOT) 289 U/L Alanine Aminotransferase (ALT/SGPT) 112 U/L Total Bilirubin 6.3 MG/DL Sodium Level 143 MEQ/L Potassium Level 4.4 MEQ/L Chloride Level 114 MEQ/L Carbon Dioxide Level 14.8 MEQ/L Anion Gap 14 MEQ/L Estimat Glomerular Filtration Rate 24 ML/MIN Protein Corrected Calcium 7.7 MG/DL Microbiology Date/Time Source Procedure Growth Status 10/28/17 20:20 Blood Peripheral Aerobic Blood Culture - Preliminary Gram Negative Enrico Resulted 10/28/17 20:20 Anaerobic Blood Culture - Preliminary Gram Negative Enrico Resulted 10/28/17 20:15 Blood Peripheral Aerobic Blood Culture - Preliminary Escherichia Coli Resulted 10/28/17 20:15 Anaerobic Blood Culture - Preliminary Gram Negative Enrico Resulted 10/29/17 00:00 Urine Catheterized Urine Urine Culture Pending Received PHYSICAL EXAMINATION: GENERAL: No acute distress. HEENT: Head atraumatic. Extraocular movements grossly intact. Pupils reactive to light. No icterus. Oropharynx with slightly dry mucosa. No visible lesions. NECK: Supple without adenopathy. No swelling. LUNGS: Decreased breath sounds. HEART: Regular rate and rhythm. Distant S1 and S2. No audible murmurs. ABDOMEN: Obese, diminished bowel sounds, soft, non tender. EXTREMITIES: No clubbing or cyanosis or edema. Decreased sensation at the plantar aspect of the left foot. left foot is warm. The pulses are decreased throughout including upper and lower extremities. SKIN: No diffuse rash. NEUROLOGIC: No gross focal finding. PSYCHIATRIC: Calm and cooperative. IMPRESSION: 1. Severe sepsis due to gram-negative bacteria. Very likely secondary to urinary tract infection. 2. UTI. 3. Pneumonia. 4. Leukocytosis secondary to infection. WBC increased. 5. Acute kidney disease likely resulting from sepsis. renal function worse. RECOMMENDATIONS: 1. Continue piperacillin/tazobactam. 2. Continue azithromycin. 3. Monitor blood culture. 4. Monitor white blood cell count. 5. Monitor renal function. 6. Follow the clinical status. Charles Morales MD October 30, 2017 12:07
--- NOTE | 2017-10-30 20:06 | HHI.PR ---
Subjective Remarks 67 YOWM with COPD,Sepsis, ischemia of leg more awake Weaned to [place] Plt count low Started on Argatroban BC E.coli Objective Vital Signs Vital Signs Date Time Temp Pulse Resp B/P (MAP) Pulse Ox O2 Delivery O2 Flow Rate FiO2 10/30/17 19:30 96 Nasal Cannula 4.00 10/30/17 19:00 97 Nasal Cannula 4.00 10/30/17 18:00 100 10/30/17 17:02 101 22 112/58 (76) 10/30/17 17:00 100 15 10/30/17 16:00 97.5 130 23 121/56 (77) 84 10/30/17 16:00 130 10/30/17 15:00 118 16 105/51 (69) 87 10/30/17 14:01 116 12 89/54 (66) 89 10/30/17 14:00 106 10/30/17 14:00 116 14 91 10/30/17 13:00 153 20 101/64 (76) 66 10/30/17 12:00 125 10/30/17 12:00 98.7 125 18 106/57 (73) 96 10/30/17 10:01 116 17 99/55 (70) 87 10/30/17 10:00 115 10/30/17 09:01 118 23 117/57 (77) 92 10/30/17 08:00 105 10/30/17 08:00 98.6 105 23 111/56 (74) 92 10/30/17 07:43 95 Nasal Cannula 4.00 10/30/17 07:00 90 16 98/56 (70) 89 10/30/17 07:00 89 Nasal Cannula 4.00 10/30/17 06:00 88 10/30/17 04:00 98.8 86 19 93/55 (68) 93 10/30/17 04:00 86 10/30/17 02:00 84 10/30/17 00:00 98.0 85 13 108/59 (75) 95 10/30/17 00:00 85 10/29/17 22:00 83 I/O 10/29/17 10/29/17 10/29/17 10/30/17 10/30/17 10/30/17 07:00 15:00 23:00 07:00 15:00 23:00 Intake Total 4350 ml 1000 ml 590 ml 1050 ml 1290 ml Output Total 200 ml 435 ml 200 ml Balance 4150 ml 1000 ml 155 ml 1050 ml 1090 ml Intake Oral 240 ml 240 ml IV Total 4350 ml 1000 ml 350 ml 1050 ml 1050 ml Output Urine Total 200 ml 435 ml 200 ml # Bowel Movements 0 0 Result Diagram: 10/30/1731410/30/17314 Objective Remarks GENERAL: WBWN WM, Mild sob SKIN: Warm and dry. HEAD: Normocephalic. EYES: No scleral icterus. No injection or drainage. NECK: Supple, trachea midline. No JVD or lymphadenopathy. CARDIOVASCULAR: Regular rate and rhythm without murmurs, gallops, or rubs. RESPIRATORY: Breath sounds equal bilaterally. No accessory muscle use. GASTROINTESTINAL: Abdomen soft, non-tender, nondistended. MUSCULOSKELETAL: No cyanosis, or edema. Cold left leg BACK: Nontender without obvious deformity. No CVA tenderness. A/P Assessment and Plan IMPRESSION: 1. Sepsis. 2. Chronic obstructive pulmonary disease, mild exacerbation. 3. Left basilar infiltrate. 4. Urinary tract infection 5. Encephalopathy. 6. Cold left leg. 7. Thrombocytopenia. PLAN: Cont Abx Aerosol nebs IV Steroids Check cultures Argatroban drip. Dennis Johnson MD October 30, 2017 20:06
[2017-10-30] MEDS: AZITHROMYCIN INJ 500 MG in SODIUM CHLOR 0.9% 250 ML INJ 250 ML IV SCH (20:41)
[2017-10-31] VITALS (26 sets, daily range): BP systolic 95–126; BP diastolic 54–81; PULSE 86–139; RESP 14–25; TEMP 97.4–99.2; O2SAT 88–97
[2017-10-31] MEDS ORDERED: ESMOLOL HCL 100 MG/10 ML VIAL IV PUSH PRN (01:45)
[2017-10-31] MEDS: ESMOLOL DRIP INJ PREMIX 250 ML IV PRN ×3 (02:12→22:26)
[2017-10-31] MEDS: RESP: ALBUTEROL 2.5 MG/IPRATROPIUM 0.5 MG NEB (SCH) NEB ×6 (03:22→22:54)
[2017-10-31 03:27] LABS: HEMATOCRIT 39.8 % (39.0-51.0); HEMOGLOBIN 13.2 GM/DL (13.0-17.0); MEAN CORPUSCULAR HEMOGLOBIN 30.9 PG (27.0-34.0); MEAN CORPUSCULAR HGB CONC 33.2 % (32.0-36.0); MEAN PLATELET VOLUME 11.6 FL (7.0-11.0); PLATELET COUNT 34 TH/MM3 (150-450); RED BLOOD COUNT 4.28 MIL/MM3 (4.50-5.90); RED CELL DISTRIBUTION WIDTH 14.3 % (11.6-17.2); WHITE BLOOD COUNT 18.6 TH/MM3 (4.0-11.0)
[2017-10-31] MEDS: CHLORHEXIDINE GLUCONATE 2 % 1 PACK (2 CLOTHS) TOP SCH (03:44)
[2017-10-31] MEDS: SODIUM CHLOR 0.9% 1000 ML INJ 1,000 ML IV SCH ×2 (03:48→16:27)
[2017-10-31] MEDS: PIPERACIL-TAZO 3.375 GM PREMIX 50 ML IV SCH ×2 (05:09→12:54)
[2017-10-31] MEDS: methylPREDNISolone SOD SUCC 40 MG/1 ML VIAL IV PUSH SCH ×4 (05:09→23:23)
[2017-10-31 05:32] LABS: PROTHROMBIN TIME - PATIENT 30.6 SEC (9.8-11.6)
[2017-10-31] MEDS: RESP: ALBUTEROL 2.5 MG/IPRATROPIUM 0.5 MG NEB (PRN) INH (05:34)
[2017-10-31] MEDS ORDERED: ETOMIDATE 40 MG/20 ML VIAL ONE (06:14)
[2017-10-31] MEDS ORDERED: ETOMIDATE 20 MG/10 ML VIAL IV PUSH ONE (06:15)
[2017-10-31] MEDS ORDERED: PHENYLEPHRINE INJ 40 MG in DEXTROSE 5% IN WATE 500 ML INJ 496 ML IV PRN ×2 (06:15)
[2017-10-31] MEDS ORDERED: TERBUTALINE INJ 1 MG/ML AMP SQ PRN (06:15)
[2017-10-31] MEDS ORDERED: ROCURONIUM INJ 50 MG/5 ML VIAL IV ONE (06:15)
[2017-10-31] MEDS ORDERED: PHENYLEPHRINE HCL 10 MG/ML VIAL ONE (06:30)
[2017-10-31] MEDS ORDERED: PROPOFOL 500 MG/50 ML INJ 50 ML ONE (06:44)
--- NOTE | 2017-10-31 07:08 | HHI.CCPN ---
Subjective Remarks/Hospital Course 67-year-old male presents to the emergency department via EMS for evaluation of shortness of breath and pain and numbness to the left leg. Patient believes that he is shortness of breath is related to the pain in his leg. He cannot feel his leg from his groin down. He denies any history of the same. He does report history of COPD. He denies any known fevers or chills. He denies chest pain. Patient received 1 L normal saline bolus via EMS. Patient denies any history of bleeding or blood clots. No recent surgery or travel. No hemoptysis. No history of DVT/PE. He denies leg edema. Patient states the pain is 10/10 to the left leg. No exacerbating or alleviating factors. Moderate severity. 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 The right inflow is heavily diseased as well. The patient was evaluated by vascular surgeon store protection specialist and was immediately started on heparin drip. SUBJ 10/29: Remains critically ill, encephalopathy. 4 out of 4 bottles positive for GNR. I will change Rocephin to Zosyn renally dosed to cover for Pseudomonas also. Continue azithromycin. Creatinine still elevated but slightly improved. WBC count slightly increased 17.2 now with 24% bands. Source of GNR sepsis could be either UTI or pneumonia. Will consult ID as well. Remains on IV heparin for acute left limb ischemia 10/30: platelets falling >50% again today. Cr still rising, but could be ATN/ contrast nephropathy. blood cultures growing e. coli by PCR, full speciation to follow. urine culture pending. discussed case with Dr. Lopez, will stop heparin , start argatroban and send HIT/CHARLEEN. denies complaints for me, but does have objective tenderness on palpation, RUQ. 10/31: Emergently intubated today a.m. by Dr. Puckett for worsening mental status, encephalopathy and worsening respiratory failure. Prior to intubation Dr. Puckett ' exam revealed right upper quadrant tenderness. Ultrasound of the gallbladder yesterday showed gallstones. Overnight Argatroban was supratherapeutic and was held, platelet count also dropped to 30,000, HIT screen is pending. Postintubation bilateral pupils are reactive but unequal. Will repeat CT of the head, CT abdomen pelvis. BUN 49/Creat 2.7, leukocytosis persisting Objective Vital Signs Date Time Temp Pulse Resp B/P (MAP) Pulse Ox O2 Delivery O2 Flow Rate FiO2 10/31/17 06:47 154 146/90 10/31/17 06:35 92 100 10/31/17 04:00 99.2 21 10/30/17 19:30 Nasal Cannula 4.00 Intake and Output 10/31/17 10/31/17 11/01/17 08:00 16:00 00:00 Intake Total 150 ml Output Total 250 ml Balance -100 ml Result Diagram: 10/31/17 0300 10/30/17 0315 Other Results Microbiology Date/Time Source Procedure Growth Status 10/28/17 20:20 Blood Peripheral Aerobic Blood Culture - Final Escherichia Coli Complete 10/28/17 20:20 Anaerobic Blood Culture - Final Escherichia Coli Complete Laboratory Tests Test 10/31/17 05:38 Blood Gas Puncture Site RT RADIAL Blood Gas Patient Temperature 98.6 Blood Gas HCO3 12 mmol/L (22-26) Blood Gas Base Excess -12.2 mmol/L (-2-2) Blood Gas Oxygen Saturation 91 % (90-100) Arterial Blood pH 7.35 (7.380-7.420) Arterial Blood Partial Pressure CO2 23 mmHg (38-42) Arterial Blood Partial Pressure O2 68 mmHg (61-120) Arterial Blood Oxygen Content 16.1 Vol % (12.0-20.0) Arterial Blood Carboxyhemoglobin 1.0 % (0-4) Arterial Blood Methemoglobin 1.2 % (0-2) Blood Gas Hemoglobin 12.6 G/DL (12.0-16.0) Oxygen Delivery Device NASAL CANNULA Blood Gas Liter Flow 5 L/M Imaging Last 24 hours Impressions Chest X-Ray 10/28/172010 Signed Impressions: Service Date/Time: Saturday, October 28, 2017 20:20 - CONCLUSION: Left lower lobe infiltrate. Mild cardiomegaly. Juanjose Mckeon Jr., MD Objective Remarks GENERAL: middle-aged male, currently intubated status post neuromuscular paralysis SKIN: Warm and dry. HEAD: Normocephalic. ENT: No scleral icterus. No injection or drainage. Pupils unequal 4 mm R 3 mm reactive. Orotracheally intubated NECK: Supple, trachea midline. No JVD. CARDIOVASCULAR: Tachycardic rate heart rate in 150s now. Postintubation initially hypotensive but now improving RESPIRATORY: Intubated and placed on mechanical ventilation. PRVC/AC. Air entry equal no significant wheezes GASTROINTESTINAL: Abdomen soft, unable to elicit any tenderness due to neuromuscular paralysis, previously. questionably positive Rucker's sign. nondistended. MUSCULOSKELETAL: No cyanosis, or edema. Left foot cool to touch. Bilateral DP + ve with Doppler NEURO EXAM: Intubated sedated status post neuromuscular paralysis A/P Assessment and Plan Assessment: 67yM with limb ischemia, severe sepsis and associated multiorgan failure including shock liver, acute kidney injury. remains critically ill and organ failure worsening. Now with acute respiratory failure and worsening encephalopathy. Currently intubated will order CT abdomen pelvis and CT head. Hold argatroban, hold heparin, ASA, follow up HIT/CHARLEEN. ASSESSMENT/PLAN: NEURO: Acute metabolic encephalopathy -Intubated for airway protection and worsening respiratory failure -Propofol for sedation and vent synchrony -No sedation vacation until metabolic encephalopathy and sepsis improved -Stat CT of the head RESP: Acute hypoxemic respiratory failure COPD exacerbation Left lower lobe pneumonia -Emergently intubated and placed on mechanical ventilation 10/31/2017 -PRVC/AC, DuoNeb scheduled and as needed, ventilator bundle, head of bed elevation to 30 -Steroids IV. Pulmonary consultation per vascular surgery. Dr. 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 -Repeat CT abdomen/pelvis Acute kidney injury Acute metabolic acidosis -worsening today on BMP. -Creatinine 2.7 worsening -nephrology consulted -Unknown baseline -Hydration, Strict I's and O's -Likely ATN from sepsis and may be component of contrast nephropathy. -1 amp of bicarb ordered ID E COLI bacteremia/severe sepsis UTI Probable acute cholecystitis -Source of bacteremia could be pneumonia or UTI or cholecystitis -Zosyn and DC azithromycin -Follow-up repeat blood urine and sputum culture -ID following. 2D echo is pending -Gallbladder u/s, shows gallstones -HIDA scan once stable HEME: Worsening acute thrombocytopenia -Most likely etiology is sepsis with consumption -F/u HIT/CHARLEEN -Stopped heparin 10/30, hold argatroban secondary to worsening thrombocytopenia acute mental status change and unequal pupils -Hold aspirin DVT GI prophylaxis -Vickey's and SCDs -Argatroban on hold -Pepcid Dispo: needs to remain in ICU. all organ systems worsening, very critical with prognosis guarded Addendum: -I was informed that patient has bilateral prolonged people now. CT of the head stat already ordered. Transfuse 2 units of FFP stat 2 packed units of platelets stat. Await CT of the head for further recommendations. Critical Care: The total critical care time was 50 minutes. Time to perform other separately billable procedures was not included in the critical care time. Patient remains critically ill with severe sepsis, respiratory failure COPD exacerbation pneumonia and UTI Anil Yip MD October 31, 2017 07:08
[2017-10-31] MEDS ORDERED: SODIUM CHLOR 0.9% 1000 ML INJ 1,000 ML IV ONE (07:15)
[2017-10-31] MEDS ORDERED: SODIUM BICARBONATE 8.4% INJ 50 MEQ/50 ML SYR IV PUSH ONE (07:30)
--- NOTE | 2017-10-31 07:40 | PD.PROCEDR ---
Procedure Note Procedure PROCEDURE NOTE PROCEDURE: Endotracheal intubation INDICATION: Acute respiratory failure. Patient became agitated, delirious, tachypneic with worsening metabolic acidosis. Intubated for airway protection and for anticipated course. DETAILS OF PROCEDURE: The patient was placed in optimal position and preoxygenated with 100% FiO2 via [id number]. Oximeter oxygen saturation of 97% was obtained prior to laryngoscopy. The patient was administered etomidate 20 mg IV for sedation and rocuronium 50 mg IV. Laryngoscopy was performed with a 4 Greenwood scope blade and a grade 1 Cormack-Lehane view was obtained. On single attempt a size 8.0 endotracheal tube was visualized passing through the cords. Correct placement was confirmed with colorimetric CO2 detector. Breath sounds were equal bilaterally. No sounds auscultated over the stomach. The endotracheal tube was secured with a commercial tube kapadia at a depth of 24 cm at the lips. The patient was connected to the ventilator. The patient tolerated the procedure well without any apparent complication. Oxygen saturations were maintained greater than 89 at all times. Stat chest x-ray was ordered. Niru Puckett MD October 31, 2017 07:40
--- NOTE | 2017-10-31 08:00 | RADRPT ---
EXAM DATE: 10/31/2017 7:51 AM EDT AGE/SEX: 67 years / Male INDICATIONS: Respiratory failure. CLINICAL DATA: This is the patient's subsequent encounter. Patient reports that signs and symptoms h ave been present for 4 - 6 days and indicates a pain score of Nonresponsive. MEDICAL/SURGICAL HISTORY: Chronic obstructive pulmonary disease. None. COMPARISON: [facility] [place], CHEST SINGLE AP, 10/30/2017. . FINDINGS: Endotracheal and nasogastric tubes have been inserted and are in appropriate position. Increasing airspace disease is evident the lungs especially in the bases. Haziness along the costophr enic angles are characteristic of bilateral effusions. Heart and mediastinal structures are unchanged. CONCLUSION: Satisfactory position of endotracheal and nasogastric tubes. Increasing airspace disease and bilateral effusions. Electronically signed by: Jamari Pickard MD 10/31/2017 7:59 AM EDT
--- NOTE | 2017-10-31 08:32 | RADRPT ---
EXAM DATE: 10/31/2017 8:22 AM EDT AGE/SEX: 67 years / Male INDICATIONS: Decrease in mental status CLINICAL DATA: This is the patient's initial encounter. Patient reports that signs and symptoms have been present for 1 day and indicates a pain score of Nonresponsive. MEDICAL/SURGICAL HISTORY: Chronic obstructive pulmonary disease. None. RADIATION DOSE: 66.34 CTDI (mGy) COMPARISON: No prior [place] exams available for comparison. TECHNIQUE: CT of the head without contrast. Using automated exposure control and adjustment of the mA and/or kV according to patient size, radiation dose was kept as low as reasonably achievable to ob tain optimal diagnostic quality images. FINDINGS: Cerebrum: The ventricles are normal for age. No evidence of midline shift, mass lesion, hemorrhage or acute infarction. No extraaxial fluid collections are seen. Posterior Fossa: The cerebellum and brainstem are intact. The 4th ventricle is midline. The cerebe llopontine angle is unremarkable. Extracranial: The visualized portion of the orbits is intact. Skull: The calvaria is intact. No evidence of skull fracture. CONCLUSION: 1. Negative CT Head non contrast. 2. No evidence of acute infarct, hemorrhage, mass or edema. Electronically signed by: Jamari Pickard MD 10/31/2017 8:31 AM EDT
[2017-10-31] MEDS: SODIUM CHLORIDE 0.9% FLUSH 10 ML FLUSH IV FLUSH SCH ×2 (08:58→20:50)
[2017-10-31] MEDS: FAMOTIDINE 20 MG/2 ML VIAL IV PUSH SCH ×2 (08:58→20:50)
[2017-10-31] MEDS: CHLORHEXIDINE 0.12% (ORAL KIT) 15 ML CUP MT SCH ×2 (08:59→20:50)
[2017-10-31] MEDS: DOCUSATE SODIUM 50 MG/SENNA 8.6 MG TAB PO SCH ×2 (09:00→20:50)
[2017-10-31] MEDS: PROPOFOL 1000 MG/100 ML INJ 100 ML IV PRN ×4 (09:00→23:24)
--- NOTE | 2017-10-31 09:20 | PD.VS.PN ---
Subjective Subjective/Hospital Course Motor intact. Changed from hep to argatroban yest because of thrombocytopenia and HIT assay pending this morning, increased WOB and intubated pupils B dilated - head CT negative; MRI pending Objective Vitals/I&O Date Time Temp Pulse Resp B/P (MAP) Pulse Ox O2 Delivery O2 Flow Rate FiO2 10/31/17 06:47 154 146/90 10/31/17 06:35 92 100 10/31/17 06:35 100 10/31/17 06:00 111 10/31/17 06:00 111 107/69 10/31/17 04:00 113 10/31/17 04:00 99.2 113 21 104/55 (71) 88 10/31/17 03:45 114 107/59 10/31/17 03:15 117 115/61 10/31/17 02:12 138 123/65 10/31/17 02:00 139 10/31/17 00:00 98.8 95 14 95/54 (68) 96 10/31/17 00:00 95 10/30/17 22:00 124 10/30/17 20:00 98.4 122 14 109/57 (74) 96 10/30/17 20:00 122 10/30/17 19:30 96 Nasal Cannula 4.00 10/30/17 19:00 97 Nasal Cannula 4.00 10/30/17 18:00 100 10/30/17 17:02 101 22 112/58 (76) 10/30/17 17:00 100 15 10/30/17 16:00 97.5 130 23 121/56 (77) 84 10/30/17 16:00 130 10/30/17 15:00 118 16 105/51 (69) 87 10/30/17 14:01 116 12 89/54 (66) 89 10/30/17 14:00 106 10/30/17 14:00 116 14 91 10/30/17 13:00 153 20 101/64 (76) 66 10/30/17 12:00 125 10/30/17 12:00 98.7 125 18 106/57 (73) 96 10/30/17 10:01 116 17 99/55 (70) 87 10/30/17 10:00 115 10/31/17 10/31/17 10/31/17 07:00 15:00 23:00 Intake Total 450 ml Output Total 250 ml Balance 200 ml Physical Exam intubated, sedated moves B LE feet cool and cyanotic but no tissue loss Laboratory Laboratory Tests Test 10/30/17 10:45 10/30/17 11:14 10/30/17 16:50 10/31/17 03:00 Activated Partial Thromboplast Time 31.1 62.6 White Blood Count 18.6 Red Blood Count 4.28 Hemoglobin 13.2 Hematocrit 39.8 Mean Corpuscular Volume 93.0 Mean Corpuscular Hemoglobin 30.9 Mean Corpuscular Hemoglobin Concent 33.2 Red Cell Distribution Width 14.3 Platelet Count 34 Mean Platelet Volume 11.6 Test 10/31/17 04:28 10/31/17 05:38 10/31/17 07:45 10/31/17 07:48 Prothrombin Time 30.6 Prothromb Time International Ratio 3.0 Activated Partial Thromboplast Time 66.8 Blood Gas Puncture Site RT RADIAL RT RADIAL Blood Gas Patient Temperature 98.6 98.6 Blood Gas HCO3 12 14 Blood Gas Base Excess -12.2 -12.8 Blood Gas Oxygen Saturation 91 94 Arterial Blood pH 7.35 7.16 Arterial Blood Partial Pressure CO2 23 42 Arterial Blood Partial Pressure O2 68 103 Arterial Blood Oxygen Content 16.1 17.2 Arterial Blood Carboxyhemoglobin 1.0 0.5 Arterial Blood Methemoglobin 1.2 1.3 Blood Gas Hemoglobin 12.6 12.9 Oxygen Delivery Device NASAL CANNULA VENTILATOR Blood Gas Liter Flow 5 Lactic Acid Level 0.6 Blood Gas Ventilator Setting Blood Gas Inspired Oxygen 100 Date/Time Source Procedure Growth Status 10/30/17 20:38 Blood Peripheral Aerobic Blood Culture Pending Received 10/30/17 20:38 Blood Peripheral Anaerobic Blood Culture Pending Received 10/29/17 00:00 Urine Catheterized Urine Urine Culture - Preliminary <10,000 CFU/ML GRAM POSITIVE KAREEM Resulted Imaging Last [address] 10/31/17 0000 Addendum Impressions: CONCLUSION: 1. Negative CT Head non contrast. 2. No evidence of acute infarct, hemorrhage, mass or edema. Chest X-Ray 10/31/17 0000 Signed Impressions: CONCLUSION: Satisfactory position of endotracheal and nasogastric tubes. Increasing airspace disease and bilateral effusions. Chest X-Ray 10/30/17 0600 Signed Impressions: CONCLUSION: Radiographic findings consistent with congestive heart failure and pulmonary ed irwin with right lower lobe atelectasis/consolidation or small pleural fluid. Inf ectious pneumonia can also cause this appearance. Gall Bladder Ultrasound 10/30/17 0000 Signed Impressions: CONCLUSION: 1. Fatty infiltration of the liver. 2. Multiple stones in the gallbladder. No biliary tract obstruction. Assessment and Plan Plan Acute on chronic limb ischemia, motor intact Intubated this morning and concern for intracranial process vs worsening sepsis 1. If head MRI negative, resume anticoagulation with argatroban; follow HIT assay 2. unclear etiology of hyperbilirubinemia and clinical jaundice - ? sepsis 3. Given sepsis, GNR bacteremia and gallbladder wall thickening on U/S, would favor perc cholecystostomy if head MRI negative 4. F/u creatinine today 5. Given decline in overall picture and GN bacteremia, at this point, even if he loses motor function because of critical ischemia, would not be candidate for revascularization. 6. Will follow closely. discussed with Dr. Yip (ICU) Saurav Lopez MD FACS RPVI [employer] [facility] - Heart and Vascular Surgery at [facility] [phone] Saurav Lopez MD October 31, 2017 09:20
[2017-10-31 10:12] LABS: HEMATOCRIT 38.4 % (39.0-51.0); HEMOGLOBIN 12.7 GM/DL (13.0-17.0); MEAN CELL VOLUME 92.7 FL (80.0-100.0); MEAN CORPUSCULAR HEMOGLOBIN 30.7 PG (27.0-34.0); MEAN CORPUSCULAR HGB CONC 33.1 % (32.0-36.0); MEAN PLATELET VOLUME 10.9 FL (7.0-11.0); PLATELET COUNT 48 TH/MM3 (150-450); RED BLOOD COUNT 4.14 MIL/MM3 (4.50-5.90); RED CELL DISTRIBUTION WIDTH 14.3 % (11.6-17.2); WHITE BLOOD COUNT 21.3 TH/MM3 (4.0-11.0)
[2017-10-31 10:25] LABS: INTERNATIONAL NORMALIZED RATIO 2.3 RATIO; PROTHROMBIN TIME - PATIENT 23.3 SEC (9.8-11.6)
[2017-10-31 10:48] LABS: BANDS 5 % (0-6); LYMPHOCYTES 7 % (9-44); MONOCYTES 2 % (0-8); NEUTROPHIL # MANUAL DIFF 19.4 TH/MM3 (1.8-7.7); POLYS (SEG NEUTROPHILS) 86 % (16-70)
--- NOTE | 2017-10-31 11:24 | ECHRPT ---
Indication: CORONARY ATHEROSCLEROSIS CONCLUSIONS Normal left ventricular size. Wall thickness is normal. The left ventricular systolic function is normal with an estimated ejection fraction in the range of 55-60%. The pulmonary valve is not well visualized. A moderate left sided pleural effusion is noted. There is a trivial pericardial effusion present. BP: / HR: Rhythm: MEASUREMENTS (Male / Female) Normal Values Technical Quality: 2D ECHO LV Diastolic Diameter PLAX 4.1 cm 4.2 - 5.9 / 3.9 - 5.3 cm IVS Diastolic Thickness 1.1 cm 0.6 - 1.0 / 0.6 - 0.9 cm LVPW Diastolic Thickness 0.7 cm 0.6 - 1.0 / 0.6 - 0.9 cm LV Relative Wall Thickness 0.4 M-MODE Aortic Root Diameter MM 3.0 cm AV Cusp Separation MM 1.8 cm DOPPLER Mitral E Point Velocity 97.2 cm/s TR Peak Velocity 236.0 cm/s TR Peak Gradient 22.3 mmHg FINDINGS LEFT VENTRICLE Normal left ventricular size. Wall thickness is normal. The left ventricular systolic function is normal with an estimated ejection fraction in the range of 55-60%. RIGHT VENTRICLE Normal right ventricular size and systolic function. LEFT ATRIUM The left atrial size is normal. RIGHT ATRIUM The right atrial size is normal. ATRIAL SEPTUM Normal atrial septal thickness without atrial level shunting by limited color doppler interrogation. AORTA The aortic root and proximal ascending aorta are normal in size on limited imaging. MITRAL VALVE Structurally normal mitral valve. No mitral valve stenosis or regurgitation. AORTIC VALVE Trileaflet aortic valve. No aortic valve stenosis or regurgitation. TRICUSPID VALVE Structurally normal tricuspid valve. No tricuspid valve stenosis or regurgitation. PULMONARY VALVE The pulmonary valve is not well visualized. VESSELS The inferior vena cava is normal in size. PERICARDIUM A moderate left sided pleural effusion is noted. There is a trivial pericardial effusion present. Chad Garcia MD, FACC (Electronically Signed) Final Date:31 Oct 2017 11:22
--- NOTE | 2017-10-31 12:41 | RADRPT ---
EXAM DATE: 10/31/2017 12:24 PM EDT AGE/SEX: 67 years / Male INDICATIONS: Stroke. CLINICAL DATA: This is the patient's initial encounter. Patient reports that signs and symptoms have been present for 1 day and indicates a pain score of Nonresponsive. MEDICAL/SURGICAL HISTORY: Chronic obstructive pulmonary disease. None. COMPARISON: No prior [facility] exams available for comparison. TECHNIQUE: Multiplanar, multisequence examination of the brain was performed without contrast. FINDINGS: Cerebrum: Mild to moderate diffuse cerebral atrophy. The ventricles are normal for degree of atrophy . No evidence of midline shift, mass lesion, hemorrhage or acute infarction. No extraaxial fluid co llections are seen. The pituitary gland and suprasellar cistern are normal in configuration. White Matter: Minimal periventricular and deep white matter T2 prolongation. Posterior Fossa: The cerebellum and brainstem are intact. The 4th ventricle is midline. The cerebel lopontine angle is unremarkable. The cerebellar tonsils are normal in position. Diffusion Imaging: No focal areas of restricted diffusion are seen. No evidence of acute infarction . Extracranial: The visualized portions of the orbits and paranasal sinuses are unremarkable. CONCLUSION: 1. Senescent changes with minimal periventricular ischemic white matter demyelination. 2. No acute abnormality. Specifically, no acute infarction, mass or hemorrhage. Electronically signed by: David Dixon MD 10/31/2017 12:40 PM EDT
--- NOTE | 2017-10-31 12:41 | RADRPT ---
EXAM DATE: 10/31/2017 12:24 PM EDT AGE/SEX: 67 years / Male INDICATIONS: Stroke. CLINICAL DATA: This is the patient's initial encounter. Patient reports that signs and symptoms have been present for 1 day and indicates a pain score of Nonresponsive. MEDICAL/SURGICAL HISTORY: Chronic obstructive pulmonary disease. None. [place] [facility] [place]/2017. . TECHNIQUE: 3D [id number] MRA was performed. Source images, multiplanar STS MIP, and 3D volum e MIP reconstructions were reviewed. FINDINGS: There is excellent visualization of the major intracranial arteries out to the second-o rder branch vessels. There is no evidence for aneurysm, vessel truncation or stenosis, and no eviden ce for vascular malformation. CONCLUSION: 1. Unremarkable MRA of the brain. Electronically signed by: Ventura Dozier MD 10/31/2017 12:40 PM EDT
--- NOTE | 2017-10-31 13:02 | HHI.IDPN ---
Note Infectious Disease Note Patient was intubated this morning. He became agitated, tachypneic, delirious developed respiratory distress. Currently on the ventilator. Currently on phenylephrine. Afebrile. Blood culture has E. coli. Sensitive strain. White blood cell count is elevated. MRI of the brain shows no acute abnormality. Repeat blood culture from 10/30 has no growth in 24 hours. 67-year-old white male who presented to the Emergency Department with shortness of breath and left leg pain. In the emergency Department his heart rate was 102 and temperature was 100.7. White blood cell count was elevated at 13.3 and lactic acid level was 7.4. Chest x-ray showed left lung infiltrate. Urinalysis showed 28 white cells with white blood cell clumps. PAST MEDICAL HISTORY: COPD, coronary artery disease, hernia repair. ALLERGIES: NO KNOWN DRUG ALLERGIES. Current Medications Medications (Trade) Dose Ordered Sig/Olesya Route PRN Reason Start Time Stop Time Status Last Admin Dose Admin Sodium Chloride 1,000 ml @ 124 mls/hr Q8H4M IV 10/28/17 23:00 10/31/17 03:48 Sodium Chloride (NS Flush) 2 ml UNSCH PRN IV FLUSH FLUSH AFTER USING IV ACCESS 10/28/17 22:15 Sodium Chloride (NS Flush) 2 ml BID IV FLUSH 10/29/17 09:00 10/31/17 08:58 Acetaminophen (Tylenol) 650 mg Q6H PRN PO PAIN 1-5 AND/OR FEVER >101F 10/28/17 22:15 Hydromorphone HCl (Dilaudid Pf Inj) 1 mg Q4H PRN IV PAIN SCALE 6 TO 10 10/28/17 22:30 10/30/17 17:59 Famotidine (Pepcid Inj) 10 mg Q12HR IV PUSH 10/29/17 09:00 10/31/17 08:58 Ondansetron HCl (Zofran Inj) 4 mg Q6H PRN IV PUSH NAUSEA OR VOMITING 10/28/17 22:15 Temazepam (Restoril) 15 mg HS PRN PO INSOMNIA 10/28/17 22:15 Albuterol/ Ipratropium (Duoneb Neb) 1 ampule Q2HR NEB PRN INH WHEEZING 10/28/17 22:15 10/31/17 05:34 Miscellaneous Information ([facility] [place] Nursing Information) 1 Q361D XX 10/28/17 22:15 10/28/17 22:15 Chlorhexidine Gluconate (Chlorhexidine 2% Cloth) 3 pack Taper DAILY@04 TOP 10/29/17 04:00 10/25/18 03:59 10/29/17 03:16 Chlorhexidine Gluconate (Chlorhexidine 2% Cloth) 3 pack UNSCH PRN TOP HYGIENIC CARE 10/28/17 22:15 Senna/Docusate Sodium (Elvira-Colace) 1 tab BID PO 10/29/17 09:00 10/29/17 08:38 Magnesium Hydroxide (Milk Of Magnesia Liq) 30 ml Q12H PRN PO Mild constipation 10/28/17 22:15 Sennosides (Senokot) 17.2 mg Q12H PRN PO Moderate constipation 10/28/17 22:15 Bisacodyl (Dulcolax Supp) 10 mg DAILY PRN RECTAL SEVERE CONSITIPATION 10/28/17 22:15 Lactulose (Lactulose Liq) 30 ml DAILY PRN PO SEVERE CONSITIPATION 10/28/17 22:15 Methylprednisolone Sodium Succinate (SoluMEDROL INJ) 40 mg Q6HR IV PUSH 10/29/17 00:00 10/31/17 05:09 Albuterol/ Ipratropium (Duoneb Neb) 1 ampule Q4HR NEB NEB 10/29/17 00:00 10/31/17 09:13 Azithromycin 500 mg/Sodium Chloride 250 ml @ 250 mls/hr Q24H IV 10/29/17 22:00 10/30/17 20:41 Diltiazem HCl (Cardizem Cd) 240 mg DAILY PO 10/29/17 09:00 Future Hold 10/30/17 09:02 Piperacillin Sod/ Tazobactam Sod 50 ml @ 100 mls/hr Q6H IV 10/29/17 11:30 10/31/17 05:09 Aspirin (Aspirin Chew) 81 mg DAILY CHEW 10/29/17 11:45 Future Hold 10/30/17 09:02 Argatroban 250 mg/ Sodium Chloride 252.5 ml @ 2.69 mls/hr TITRATE PRN IV aPTT < 50 10/30/17 10:15 Future Hold 10/30/17 13:05 Esmolol HCl/ Sodium Chloride 250 ml @ 26.7 mls/hr TITRATE PRN IV Blood Pressure Management 10/31/17 01:45 10/31/17 02:12 Esmolol HCl (Brevibloc Bolus Inj) 45 mg BOLUS PRN IV PUSH Rebolus 10/31/17 01:45 10/31/17 02:11 Phenylephrine HCl 40 mg/Dextrose 500 ml @ 30 mls/hr TITRATE PRN IV Blood pressure management 10/31/17 06:15 10/31/17 06:47 Terbutaline Sulfate (Brethine Inj) 1 mg UNSCH PRN SQ For Extravasation 10/31/17 06:15 Propofol 100 ml @ 2.73 mls/hr TITRATE PRN IV SEDATION 10/31/17 07:00 10/31/17 09:00 Chlorhexidine Gluconate (Peridex 0.12% Liq) 15 ml BID@08,20 MT 10/31/17 08:00 10/31/17 08:59 SOCIAL HISTORY: No tobacco. The patient quit smoking in 07/2017. No alcohol and no illicit drugs. The patient takes care of his elderly father at home who has dementia. FAMILY HISTORY: Noncontributory. OBJECTIVE: Vital Signs Date Time Temp Pulse Resp B/P (MAP) Pulse Ox O2 Delivery O2 Flow Rate FiO2 10/31/17 11:16 98.1 104 18 99/56 93 10/31/17 10:00 103 10/31/17 09:14 92 90 10/31/17 08:30 90 10/31/17 08:00 104 10/31/17 08:00 98.3 104 25 122/63 (82) 93 10/31/17 08:00 80 10/31/17 07:30 60 10/31/17 06:47 154 146/90 10/31/17 06:35 92 100 10/31/17 06:35 100 10/31/17 06:00 111 10/31/17 06:00 111 107/69 10/31/17 04:00 113 10/31/17 04:00 99.2 113 21 104/55 (71) 88 10/31/17 03:45 114 107/59 10/31/17 03:15 117 115/61 10/31/17 02:12 138 123/65 10/31/17 02:00 139 10/31/17 00:00 98.8 95 14 95/54 (68) 96 10/31/17 00:00 95 10/30/17 22:00 124 10/30/17 20:00 98.4 122 14 109/57 (74) 96 10/30/17 20:00 122 10/30/17 19:30 96 Nasal Cannula 4.00 10/30/17 19:00 97 Nasal Cannula 4.00 10/30/17 18:00 100 10/30/17 17:02 101 22 112/58 (76) 10/30/17 17:00 100 15 10/30/17 16:00 97.5 130 23 121/56 (77) 84 10/30/17 16:00 130 10/30/17 15:00 118 16 105/51 (69) 87 10/30/17 14:01 116 12 89/54 (66) 89 10/30/17 14:00 106 10/30/17 14:00 116 14 91 10/30/17 13:00 153 20 101/64 (76) 66 Laboratory Tests Test 10/30/17 03:15 10/31/17 03:00 10/31/17 09:34 White Blood Count 20.8 TH/MM3 18.6 TH/MM3 21.3 TH/MM3 Red Blood Count 4.09 MIL/MM3 4.28 MIL/MM3 4.14 MIL/MM3 Hemoglobin 12.8 GM/DL 13.2 GM/DL 12.7 GM/DL Hematocrit 38.7 % 39.8 % 38.4 % Mean Corpuscular Volume 94.6 FL 93.0 FL 92.7 FL Mean Corpuscular Hemoglobin 31.3 PG 30.9 PG 30.7 PG Mean Corpuscular Hemoglobin Concent 33.1 % 33.2 % 33.1 % Red Cell Distribution Width 14.2 % 14.3 % 14.3 % Platelet Count 31 TH/MM3 34 TH/MM3 48 TH/MM3 Mean Platelet Volume 9.9 FL 11.6 FL 10.9 FL Neutrophils (%) (Auto) 93.1 % Lymphocytes (%) (Auto) 2.6 % Monocytes (%) (Auto) 1.9 % Eosinophils (%) (Auto) 2.3 % Basophils (%) (Auto) 0.1 % Neutrophils # (Auto) 19.3 TH/MM3 Lymphocytes # (Auto) 0.5 TH/MM3 Monocytes # (Auto) 0.4 TH/MM3 Eosinophils # (Auto) 0.5 TH/MM3 Basophils # (Auto) 0.0 TH/MM3 CBC Comment AUTO DIFF AUTO DIFF Differential Comment AUTO DIFF CONFIRMED FINAL DIFF MANUAL Platelet Estimate LOW LOW Platelet Morphology Comment NORMAL NORMAL Differential Total Cells Counted 100 Neutrophils % (Manual) 86 % Band Neutrophils % 5 % Lymphocytes % 7 % Monocytes % 2 % Neutrophils # (Manual) 19.4 TH/MM3 Laboratory Tests Test 10/30/17 03:15 10/30/17 11:14 10/31/17 07:45 Blood Urea Nitrogen 49 MG/DL Creatinine 2.69 MG/DL Random Glucose 182 MG/DL Total Protein 5.9 GM/DL Albumin 2.0 GM/DL Calcium Level 7.1 MG/DL Alkaline Phosphatase 107 U/L Aspartate Amino Transf (AST/SGOT) 289 U/L Alanine Aminotransferase (ALT/SGPT) 112 U/L Total Bilirubin 6.3 MG/DL Sodium Level 143 MEQ/L Potassium Level 4.4 MEQ/L Chloride Level 114 MEQ/L Carbon Dioxide Level 14.8 MEQ/L Anion Gap 14 MEQ/L Estimat Glomerular Filtration Rate 24 ML/MIN Protein Corrected Calcium 7.7 MG/DL Lactic Acid Level 0.6 mmol/L Microbiology Date/Time Source Procedure Growth Status 10/30/17 20:38 Blood Peripheral Aerobic Blood Culture - Preliminary NO GROWTH IN 1 DAY Resulted 10/30/17 20:38 Blood Peripheral Anaerobic Blood Culture - Preliminary NO GROWTH IN 1 DAY Resulted 10/30/17 20:33 Blood Peripheral Aerobic Blood Culture - Preliminary NO GROWTH IN 1 DAY Resulted 10/30/17 20:33 Blood Peripheral Anaerobic Blood Culture - Preliminary NO GROWTH IN 1 DAY Resulted 10/28/17 20:20 Blood Peripheral Aerobic Blood Culture - Final Escherichia Coli Complete 10/28/17 20:20 Anaerobic Blood Culture - Final Escherichia Coli Complete 10/28/17 20:15 Blood Peripheral Aerobic Blood Culture - Final Escherichia Coli Complete 10/28/17 20:15 Anaerobic Blood Culture - Final Escherichia Coli Complete 10/31/17 10:40 Sputum Endotracheal Gram Stain Pending Received 10/31/17 10:40 Sputum Endotracheal Sputum Culture Pending Received 10/29/17 00:00 Urine Catheterized Urine Urine Culture - Final Enterococcus Faecalis Complete PHYSICAL EXAMINATION: GENERAL: Currently on the ventilator. Unresponsive. HEENT: Oropharynx with slightly dry mucosa. NECK: Supple without adenopathy. No swelling. LUNGS: Decreased breath sounds. HEART: Regular rate and rhythm. Distant S1 and S2. No audible murmurs. ABDOMEN: Obese, distended and tympanitic. EXTREMITIES: No clubbing or cyanosis or edema. Left foot is currently warm. Has dusky appearance. SKIN: No diffuse rash. NEUROLOGIC: Unable to assess. PSYCHIATRIC: Unable to assess. IMPRESSION: 1. Severe sepsis due to E. coli very likely secondary to urinary tract infection or gallbladder. 2. Bacteriuria with less than 10,000 colonies of gram-positive terrell. 3. Pneumonia. Bilateral airspace disease on chest x-ray. 4. Leukocytosis secondary to infection. WBC increased. 5. Acute kidney disease likely resulting from sepsis. renal function worse. RECOMMENDATIONS: 1. Continue piperacillin/tazobactam. 2. Continue azithromycin. 3. Monitor blood culture. 4. Monitor white blood cell count. 5. Monitor renal function. 6. Follow the clinical status. Charles Morales MD October 31, 2017 13:02
[2017-10-31 14:33] LABS: HEPARIN INDUCED PLATELET AB NEGATIVE (NEGATIVE)
[2017-10-31] MEDS: AMPICILLIN-SULBACTAM INJ 1,500 MG in SODIUM CHLORIDE 0.9% INJ 100 ML IV SCH ×2 (14:45→20:50)
[2017-10-31] MEDS ORDERED: DIATRIZOATE MEGLUM/DIATRIZOATE SOD 9 ML CUP PO ONE (15:15)
[2017-10-31 16:01] LABS: HEMATOCRIT 35.2 % (39.0-51.0); HEMOGLOBIN 11.7 GM/DL (13.0-17.0); MEAN CELL VOLUME 92.2 FL (80.0-100.0); MEAN CORPUSCULAR HEMOGLOBIN 30.8 PG (27.0-34.0); MEAN CORPUSCULAR HGB CONC 33.3 % (32.0-36.0); MEAN PLATELET VOLUME 9.1 FL (7.0-11.0); PLATELET COUNT 98 TH/MM3 (150-450); RED BLOOD COUNT 3.82 MIL/MM3 (4.50-5.90); RED CELL DISTRIBUTION WIDTH 13.9 % (11.6-17.2); WHITE BLOOD COUNT 17.9 TH/MM3 (4.0-11.0)
[2017-10-31 16:27] LABS: BICARBONATE 15.2 MEQ/L (21.0-32.0); CALCIUM 7.1 MG/DL (8.5-10.1); CREATININE 2.63 MG/DL (0.60-1.30)
[2017-10-31 16:34] LABS: BANDS 8 % (0-6); CORRECTED NUCLEATED RBC 1 /100 WBC (0-0); LYMPHOCYTES 6 % (9-44); MONOCYTES 2 % (0-8); NEUTROPHIL # MANUAL DIFF 16.5 TH/MM3 (1.8-7.7); NUCLEATED RED BLOOD CELL 1 (0-0); POLYS (SEG NEUTROPHILS) 84 % (16-70)
[2017-10-31 16:35] LABS: TEARDROP RBCS 1+ (NORMAL)
[2017-10-31 16:47] LABS: CALCIUM-PROTEIN CORRECTED 7.8 MG/DL (8.5-10.1); TOTAL PROTEIN 5.7 GM/DL (6.4-8.2)
--- NOTE | 2017-10-31 16:47 | PD.CONS ---
HPI Service Nephrology Consult Requested By Dr. Yip Reason for Consult Acute renal failure Primary Care Physician Unknown History of Present Illness Patient is a 67-year-old male who has COPD, hypertension and had been admitted with left leg numbness, he had back pain 2 days ago and then developed numbness weakness of his left leg, CTA of the abdomen showed occluded common iliac with reconstitution of common femoral artery on the left, he has severe disease on the right as well, his left foot was cold to touch and he has ischemic changes in the toes, patient condition worsened and he needs intubation, his creatinine is rising initial reading was 2.85 and he was given IV hydration after which it was 2.2 and currently at 2.6, his CPK was high at 1061, patient received heparin and then argatroban however this was turned off as his platelet dropped. Review of Systems ROS Limitations: Clinical Condition Past Family Social History Allergies: Coded Allergies: No Known Allergies (Unverified , 10/28/17) Past Medical History No known CAD + COPD hiatal hernia Hypertension Past Surgical History hiatal hernia repair several decades ago Reported Medications Reported Meds & Active Scripts Active Reported Omeprazole 40 Mg Cap 40 Mg DAILY Losartan (Losartan Potassium) 50 Mg Tab 50 Mg PO DAILY Diltiazem (Diltiazem HCl) 120 Mg Tab 240 Mg PO DAILY Active Ordered Medications Current Medications Medications (Trade) Dose Ordered Sig/Olesya Route Start Time Stop Time Status Last Admin Sodium Chloride 1,000 ml @ 124 mls/hr Q8H4M IV 10/28/17 23:00 10/31/17 16:27 (NS Flush) 2 ml UNSCH PRN IV FLUSH 10/28/17 22:15 (NS Flush) 2 ml BID IV FLUSH 10/29/17 09:00 10/31/17 08:58 (Tylenol) 650 mg Q6H PRN PO 10/28/17 22:15 (Dilaudid Pf Inj) 1 mg Q4H PRN IV 10/28/17 22:30 10/30/17 17:59 (Pepcid Inj) 10 mg Q12HR IV PUSH 10/29/17 09:00 10/31/17 08:58 (Zofran Inj) 4 mg Q6H PRN IV PUSH 10/28/17 22:15 (Restoril) 15 mg HS PRN PO 10/28/17 22:15 (Duoneb Neb) 1 ampule Q2HR NEB PRN INH 10/28/17 22:15 10/31/17 05:34 ([facility] [place] [facility]) 1 Q361D XX 10/28/17 22:15 10/28/17 22:15 (Chlorhexidine 2% Cloth) 3 pack Taper DAILY@04 TOP 10/29/17 04:00 10/25/18 03:59 10/29/17 03:16 (Chlorhexidine 2% Cloth) 3 pack UNSCH PRN TOP 10/28/17 22:15 (Elvira-Colace) 1 tab BID PO 10/29/17 09:00 10/29/17 08:38 (Milk Of Magnesia Liq) 30 ml Q12H PRN PO 10/28/17 22:15 (Senokot) 17.2 mg Q12H PRN PO 10/28/17 22:15 (Dulcolax Supp) 10 mg DAILY PRN RECTAL 10/28/17 22:15 (Lactulose Liq) 30 ml DAILY PRN PO 10/28/17 22:15 (SoluMEDROL INJ) 40 mg Q6HR IV PUSH 10/29/17 00:00 10/31/17 12:55 (Duoneb Neb) 1 ampule Q4HR NEB NEB 10/29/17 00:00 10/31/17 13:25 Azithromycin 500 mg/Sodium Chloride 250 ml @ 250 mls/hr Q24H IV 10/29/17 22:00 10/30/17 20:41 (Cardizem Cd) 240 mg DAILY PO 10/29/17 09:00 Future Hold 10/30/17 09:02 (Aspirin Chew) 81 mg DAILY CHEW 10/29/17 11:45 Future Hold 10/30/17 09:02 Esmolol HCl/ Sodium Chloride 250 ml @ 26.7 mls/hr TITRATE PRN IV 10/31/17 01:45 10/31/17 13:05 (Brevibloc Bolus Inj) 45 mg BOLUS PRN IV PUSH 10/31/17 01:45 10/31/17 02:11 Phenylephrine HCl 40 mg/Dextrose 500 ml @ 30 mls/hr TITRATE PRN IV 10/31/17 06:15 10/31/17 06:47 (Brethine Inj) 1 mg UNSCH PRN SQ 10/31/17 06:15 Propofol 100 ml @ 2.73 mls/hr TITRATE PRN IV 10/31/17 07:00 10/31/17 13:04 (Peridex 0.12% Liq) 15 ml BID@08,20 MT 10/31/17 08:00 10/31/17 08:59 Ampicillin Sodium/ Sulbactam Sodium 1500 mg/Sodium Chloride 100 ml @ 200 mls/hr Q6H IV 10/31/17 15:00 10/31/17 14:45 Family History Noncontributory Social History History of smoking present Physical Exam Vital Signs Vital Signs Date Time Temp Pulse Resp B/P (MAP) Pulse Ox O2 Delivery O2 Flow Rate FiO2 10/31/17 16:04 97 75 10/31/17 15:35 98.1 109 19 109/65 94 10/31/17 15:19 98.1 108 21 109/63 95 10/31/17 14:00 109 10/31/17 13:27 97 75 10/31/17 13:25 97.4 108 19 112/64 97 10/31/17 13:10 98.1 108 18 108/63 96 10/31/17 13:05 107 108/63 10/31/17 12:00 98.1 104 16 104/81 (89) 95 10/31/17 12:00 104 10/31/17 12:00 75 10/31/17 11:30 98.4 105 19 99/56 94 10/31/17 11:16 98.1 104 18 99/56 93 10/31/17 10:00 103 10/31/17 09:14 92 90 10/31/17 08:30 90 10/31/17 08:00 104 10/31/17 08:00 98.3 104 25 122/63 (82) 93 10/31/17 08:00 80 10/31/17 07:30 60 10/31/17 06:47 154 146/90 10/31/17 06:35 92 100 10/31/17 06:35 100 10/31/17 06:00 111 10/31/17 06:00 111 107/69 10/31/17 04:00 113 10/31/17 04:00 99.2 113 21 104/55 (71) 88 10/31/17 03:45 114 107/59 10/31/17 03:15 117 115/61 10/31/17 02:12 138 123/65 10/31/17 02:00 139 10/31/17 00:00 98.8 95 14 95/54 (68) 96 10/31/17 00:00 95 10/30/17 22:00 124 10/30/17 20:00 98.4 122 14 109/57 (74) 96 10/30/17 20:00 122 10/30/17 19:30 96 Nasal Cannula 4.00 10/30/17 19:00 97 Nasal Cannula 4.00 10/30/17 18:00 100 10/30/17 17:02 101 22 112/58 (76) 10/30/17 17:00 100 15 Physical Exam GENERAL: Well-nourished, well-developed intubated patient. SKIN: Warm and dry. HEAD: Normocephalic. EYES: No scleral icterus. No injection or drainage. NECK: Supple, trachea midline. No JVD or lymphadenopathy. CARDIOVASCULAR: Tachycardic, no gallops, or rubs. RESPIRATORY: Breath sounds equal bilaterally. No accessory muscle use. GASTROINTESTINAL: Abdomen soft, non-tender, nondistended. EXTREMITIES: No cyanosis, or edema. Left toes appears ischemic NEUROLOGICAL: Obtunded Laboratory Laboratory Tests Test 10/30/17 16:50 10/31/17 03:00 10/31/17 04:28 10/31/17 05:38 Activated Partial Thromboplast Time 62.6 66.8 White Blood Count 18.6 Red Blood Count 4.28 Hemoglobin 13.2 Hematocrit 39.8 Mean Corpuscular Volume 93.0 Mean Corpuscular Hemoglobin 30.9 Mean Corpuscular Hemoglobin Concent 33.2 Red Cell Distribution Width 14.3 Platelet Count 34 Mean Platelet Volume 11.6 Prothrombin Time 30.6 Prothromb Time International Ratio 3.0 Blood Gas Puncture Site RT RADIAL Blood Gas Patient Temperature 98.6 Blood Gas HCO3 12 Blood Gas Base Excess -12.2 Blood Gas Oxygen Saturation 91 Arterial Blood pH 7.35 Arterial Blood Partial Pressure CO2 23 Arterial Blood Partial Pressure O2 68 Arterial Blood Oxygen Content 16.1 Arterial Blood Carboxyhemoglobin 1.0 Arterial Blood Methemoglobin 1.2 Blood Gas Hemoglobin 12.6 Oxygen Delivery Device NASAL CANNULA Blood Gas Liter Flow 5 Test 10/31/17 07:45 10/31/17 07:48 10/31/17 09:34 10/31/17 15:15 Lactic Acid Level 0.6 Blood Gas Puncture Site RT RADIAL Blood Gas Patient Temperature 98.6 Blood Gas HCO3 14 Blood Gas Base Excess -12.8 Blood Gas Oxygen Saturation 94 Arterial Blood pH 7.16 Arterial Blood Partial Pressure CO2 42 Arterial Blood Partial Pressure O2 103 Arterial Blood Oxygen Content 17.2 Arterial Blood Carboxyhemoglobin 0.5 Arterial Blood Methemoglobin 1.3 Blood Gas Hemoglobin 12.9 Oxygen Delivery Device VENTILATOR Blood Gas Ventilator Setting Blood Gas Inspired Oxygen 100 White Blood Count 21.3 17.9 Red Blood Count 4.14 3.82 Hemoglobin 12.7 11.7 Hematocrit 38.4 35.2 Mean Corpuscular Volume 92.7 92.2 Mean Corpuscular Hemoglobin 30.7 30.8 Mean Corpuscular Hemoglobin Concent 33.1 33.3 Red Cell Distribution Width 14.3 13.9 Platelet Count 48 98 Mean Platelet Volume 10.9 9.1 CBC Comment AUTO DIFF AUTO DIFF Differential Total Cells Counted 100 Neutrophils % (Manual) 86 Band Neutrophils % 5 Lymphocytes % 7 Monocytes % 2 Neutrophils # (Manual) 19.4 Differential Comment FINAL DIFF MANUAL Platelet Estimate LOW Platelet Morphology Comment NORMAL Prothrombin Time 23.3 Prothromb Time International Ratio 2.3 Activated Partial Thromboplast Time 38.6 Blood Urea Nitrogen 73 Creatinine 2.63 Random Glucose 129 Calcium Level 7.1 Sodium Level 145 Potassium Level 4.2 Chloride Level 116 Carbon Dioxide Level 15.2 Anion Gap 14 Estimat Glomerular Filtration Rate 24 Date/Time Source Procedure Growth Status 10/30/17 20:38 Blood Peripheral Aerobic Blood Culture - Preliminary NO GROWTH IN 1 DAY Resulted 10/30/17 20:38 Blood Peripheral Anaerobic Blood Culture - Preliminary NO GROWTH IN 1 DAY Resulted 10/31/17 10:40 Sputum Endotracheal Gram Stain - Final Resulted 10/31/17 10:40 Sputum Endotracheal Sputum Culture Pending Resulted 10/29/17 00:00 Urine Catheterized Urine Urine Culture - Final Enterococcus Faecalis Complete Result Diagram: 10/31/17 1515 10/31/17 1515 Imaging Last Impressions Head Magnetic Resonance Angiography 10/31/17 0000 Signed Impressions: CONCLUSION: 1. Unremarkable MRA of the brain. Head CT 10/31/17 0000 Signed Impressions: CONCLUSION: 1. Negative CT Head non contrast. 2. No evidence of acute infarct, hemorrhage, mass or edema. Chest X-Ray 10/31/17 Signed Impressions: CONCLUSION: Satisfactory position of endotracheal and nasogastric tubes. Increasing airspace disease and bilateral effusions. Brain MRI 10/31/17 Signed Impressions: CONCLUSION: 1. Senescent changes with minimal periventricular ischemic white matter demyel ination. 2. No acute abnormality. Specifically, no acute infarction, mass or hemorrhage . Gall Bladder Ultrasound 10/30/17 Signed Impressions: CONCLUSION: 1. Fatty infiltration of the liver. 2. Multiple stones in the gallbladder. No biliary tract obstruction. Extremity Arterial Study 10/28/17 Signed Impressions: CONCLUSION: 1. Abnormal ABIs, left greater than right. The left DAVID is significantly dimin ished at 0.14. Aorta w/Runoff CTA 10/28/17 Signed Impressions: Service Date/Time: Saturday, October 28, 2017 21:50 - CONCLUSION: 1. Acute occlusion of the left inflow with concern for short segment occlusion involving the distal right inflow. This raises concern for an embolic event. 2. Right lower extremity shows scattered disease throughout the common femoral artery, SFA and [id number] popliteal artery with three-vessel runoff to the foot. 3. Left lower extremity with reconstitution of the common femoral artery with diseased out flow and two vessel runoff to the foot as detailed above. 4. 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 5. Hepatic steatosis. 6. Cholelithiasis. Juanjose Mckeon Jr., MD Assessment and Plan Problem List: (1) Acute renal failure ICD Codes: N17.9 - Acute kidney failure, unspecified Plan: Patient has a acidosis , has rhabdomyolysis will hydrate and add sodium bicarbonate change IV fluid to D5 3 A of sodium bicarbonate at 150 cc an hour also has dye exposure Follow urine studies urine myoglobin Urine sodium, creatinine, urine eosinophils Follow BMP Avoid nephrotoxins Check baseline kidney ultrasound (2) Rhabdomyolysis ICD Codes: M62.82 - Rhabdomyolysis Plan: Follow CPK Alkalinize urine (3) Acidosis, metabolic ICD Codes: E87.2 - Acidosis Plan: D5 with 3 A of bicarbonate PH was 7.16 Patient did receive IV bicarbonate (4) CKD (chronic kidney disease) stage 4, GFR 15-29 ml/min ICD Codes: N18.4 - Chronic kidney disease, stage 4 (severe) Plan: GFR is low (5) Peripheral vascular disease ICD Codes: I73.9 - Peripheral vascular disease, unspecified Plan: Vascular surgery follow-up (6) Ischemia of left lower extremity ICD Codes: I99.8 - Other disorder of circulatory system Status: Acute Plan: Patient is on anticoagulation (7) Pneumonia ICD Codes: J18.9 - Pneumonia, unspecified organism Status: Acute Plan: ID following on ampicillin/sulbactam and azithromycin (8) Sepsis ICD Codes: A41.9 - Sepsis, unspecified organism Status: Acute Plan: As above he has E. coli in the blood and enterococcus in the urine Problem Qualifiers (1) Acute renal failure: Qualified Codes: N17.0 - Acute kidney failure with tubular necrosis (2) Pneumonia: Qualified Codes: J18.1 - Lobar pneumonia, unspecified organism (3) Sepsis: Qualified Codes: A41.9 - Sepsis, unspecified organism Alexy Lemons MD October 31, 2017 16:47
[2017-10-31 16:48] LABS: INTERNATIONAL NORMALIZED RATIO 1.7 RATIO; PROTHROMBIN TIME - PATIENT 17.4 SEC (9.8-11.6)
[2017-10-31] MEDS: SODIUM BICARBONATE 8.4% INJ 150 MEQ in DEXTROSE 5% IN WATE 1000ML INJ 1,000 ML IV SCH ×2 (17:16)
[2017-10-31 19:34] LABS: CREATININE, RANDOM URINE 97.4 MG/DL
--- NOTE | 2017-10-31 19:56 | HHI.PR ---
Subjective Remarks 67 YOWM with COPD,Sepsis, ischemia of leg Developed RF, intubated Plt decreased had Pl transfusion sedated Was on Neosynepi, weaned off Objective Vital Signs Vital Signs Date Time Temp Pulse Resp B/P (MAP) Pulse Ox O2 Delivery O2 Flow Rate FiO2 10/31/17 18:00 111 10/31/17 17:16 130/72 10/31/17 16:50 98.2 101 16 124/68 96 10/31/17 16:34 97.7 109 19 120/65 95 10/31/17 16:27 96 120/65 10/31/17 16:04 97 75 10/31/17 16:00 98.2 109 18 119/66 (83) 94 10/31/17 16:00 109 10/31/17 16:00 60 10/31/17 15:35 98.1 109 19 109/65 94 10/31/17 15:19 98.1 108 21 109/63 95 10/31/17 14:00 109 10/31/17 13:35 108 112/64 10/31/17 13:27 97 75 10/31/17 13:25 97.4 108 19 112/64 97 10/31/17 13:10 98.1 108 18 108/63 96 10/31/17 13:05 107 108/63 10/31/17 13:04 107 108/63 10/31/17 12:00 98.1 104 16 104/81 (89) 95 10/31/17 12:00 104 10/31/17 12:00 75 10/31/17 11:30 98.4 105 19 99/56 94 10/31/17 11:16 98.1 104 18 99/56 93 10/31/17 11:00 104 98/57 10/31/17 10:00 103 10/31/17 09:14 92 90 10/31/17 09:00 102 112/57 10/31/17 08:30 90 10/31/17 08:30 148 109/57 10/31/17 08:00 104 10/31/17 08:00 98.3 104 25 122/63 (82) 93 10/31/17 08:00 104 122/63 10/31/17 08:00 80 10/31/17 07:30 60 10/31/17 07:30 145 10/31/17 06:47 154 146/90 10/31/17 06:35 92 100 10/31/17 06:35 100 10/31/17 06:00 111 10/31/17 06:00 111 107/69 10/31/17 04:00 113 10/31/17 04:00 99.2 113 21 104/55 (71) 88 10/31/17 03:45 114 107/59 10/31/17 03:15 117 115/61 10/31/17 02:12 138 123/65 10/31/17 02:00 139 10/31/17 00:00 98.8 95 14 95/54 (68) 96 10/31/17 00:00 95 10/30/17 22:00 124 10/30/17 20:00 98.4 122 14 109/57 (74) 96 10/30/17 20:00 122 I/O 10/30/17 10/30/17 10/30/17 10/31/17 10/31/17 10/31/17 07:00 15:00 23:00 07:00 15:00 23:00 Intake Total 590 ml 1050 ml 1290 ml 450 ml 1539 ml 798 ml Output Total 435 ml 200 ml 250 ml 380 ml Balance 155 ml 1050 ml 1090 ml 200 ml 1539 ml 418 ml Intake Oral 240 ml 240 ml 100 ml IV Total 350 ml 1050 ml 1050 ml 350 ml 1090 ml 205 ml FFP 563 ml Platelets 409 ml Blood Product IV Normal Saline Flush 40 ml 30 ml Output Urine Total 435 ml 200 ml 250 ml 380 ml # Bowel Movements 0 0 Result Diagram: 10/31/17 1515 10/31/17 1515 Objective Remarks GENERAL: WBWN WM, On Vent, sedated SKIN: Warm and dry. HEAD: Normocephalic. EYES: No scleral icterus. No injection or drainage. NECK: Supple, trachea midline. No JVD or lymphadenopathy. CARDIOVASCULAR: Regular rate and rhythm without murmurs, gallops, or rubs. RESPIRATORY: Breath sounds equal bilaterally. No accessory muscle use. GASTROINTESTINAL: Abdomen soft, non-tender, nondistended. MUSCULOSKELETAL: No cyanosis, or edema. Cold left leg BACK: Nontender without obvious deformity. No CVA tenderness. A/P Assessment and Plan IMPRESSION: 1. Sepsis. 2. Chronic obstructive pulmonary disease, mild exacerbation. 3. Left basilar infiltrate. 4. Urinary tract infection 5. Encephalopathy. 6. Cold left leg. 7. Thrombocytopenia. 8. VDRF PLAN: Vent support PRVC-AC, rate 16, TV 500,PEEP8,IT0.8 Sedation for comfort and Vent synchrony Cont Abx per ID Monitor Plt count Dennis Johnson MD October 31, 2017 19:56
[2017-10-31] MEDS: AZITHROMYCIN INJ 500 MG in SODIUM CHLOR 0.9% 250 ML INJ 250 ML IV SCH (20:50)
--- NOTE | 2017-10-31 23:00 | RADRPT ---
EXAM DATE: 10/31/2017 10:38 PM EDT AGE/SEX: 67 years / Male INDICATIONS: Increased BUN and Creatinine. CLINICAL DATA: This is the patient's initial encounter. Patient reports that signs and symptoms have been present for 1 day and indicates a pain score of Nonresponsive. MEDICAL/SURGICAL HISTORY: Chronic obstructive pulmonary disease. Hiatal hernia. . Hiatal herni a repair. COMPARISON: No prior [facility] exams available for comparison. No external comparison. MEASUREMENTS: Right Kidney:__10.7 x 4.9 x 4.4 cm cm Left Kidney:__10.9 x 5.3 x 5.5 cm cm FINDINGS: Right Kidney: Normal in size and shape. The echogenicity is equal to that of the liver. There is no f ocal mass or hydronephrosis. Left Kidney: Normal in size and shape. The echogenicity is increased. There is no focal mass or hydro nephrosis. Bladder: Decompressed with Peña catheter in place. CONCLUSION: 1. No hydronephrosis. 2. Increased cortical echogenicity consistent with medical renal disease. Electronically signed by: Ambrosio Stewart MD 10/31/2017 10:59 PM EDT
[2017-11-01] VITALS (23 sets, daily range): BP systolic 105–137; BP diastolic 57–72; PULSE 93–112; RESP 15–24; TEMP 97.7–110; O2SAT 91–97
[2017-11-01] MEDS: SODIUM BICARBONATE 8.4% INJ 150 MEQ in DEXTROSE 5% IN WATE 1000ML INJ 1,000 ML IV SCH ×6 (00:40→14:59)
--- NOTE | 2017-11-01 00:41 | RADRPT ---
EXAM DATE: 11/01/2017 12:30 AM EDT AGE/SEX: 67 years / Male INDICATIONS: Abdominal distention, evaluate colitis/acute doug cystitis. CLINICAL DATA: This is the patient's initial encounter. Patient reports that signs and symptoms have been present for 1 day and indicates a pain score of Nonresponsive. MEDICAL/SURGICAL HISTORY: Chronic obstructive pulmonary disease. None. RADIATION DOSE: 15.39 CTDI (mGy) COMPARISON: No prior [facility] exams available for comparison. TECHNIQUE: Multiple contiguous axial images were obtained through the abdomen. Images were obtained using multiple row detector helical technique. Using dose reduction techniques, radiation dose was ke pt as low as reasonably achievable to obtain optimal diagnostic quality images. FINDINGS: Lower Lungs: There is patchy density seen at the lower lobes bilaterally being more prominent on the left. There are mild bilateral pleural effusions. Liver: The liver has a homogeneous density without space-occupying lesion. There is no dilation of th e biliary tree. Calcified gallstones are seen. The gallbladder is moderately distended. There is incr eased density within the common bile duct at the pancreatic head region concerning for choledocholith iasis. Spleen: Homogeneous density without enlargement. Pancreas: Unremarkable without mass or calcification. Kidneys: Normal in size and shape. No evidence of mass or hydronephrosis. There is a 4 mm nonobstruc ting left renal stone seen at the inferior left collecting system. There is mild left perinephric str anding. Adrenal Glands: Unremarkable. Aorta: Atherosclerotic calcifications are seen throughout. No aneurysm is seen. Bowel/Mesentery: The bowel loops are grossly unremarkable. The cecum and sigmoid colon have a normal configuration. There is an NG tube in place. There are scattered colonic diverticula seen particular ly in the sigmoid region. There is a mild amount of free fluid seen in the lower pelvis. Abdominal Wall: Intact. Retroperitoneum: No evidence of adenopathy in the retrocrural, para-aortic, or deep pelvic regions. Bladder: There is a Peña catheter in place. Reproductive Organs: Prostatic calcifications are present. Inguinal: The inguinal region is unremarkable without evidence of adenopathy. Bony Structures: Unremarkable. CONCLUSION: 1. Gallstones. There do appear to be areas of increased density within the common bile duct concerni ng for choledocholithiasis. 2. 4 mm nonobstructing left renal stone. 3. Sigmoid colon diverticula. 4. Bibasilar areas of consolidation or atelectasis being worse on the left with mild bilateral pleur al effusions. Electronically signed by: Phi Tineo MD 11/01/2017 12:40 AM EDT
[2017-11-01] MEDS: CHLORHEXIDINE GLUCONATE 2 % 1 PACK (2 CLOTHS) TOP SCH (01:52)
[2017-11-01] MEDS: RESP: ALBUTEROL 2.5 MG/IPRATROPIUM 0.5 MG NEB (SCH) NEB ×5 (03:18→20:54)
[2017-11-01] MEDS: AMPICILLIN-SULBACTAM INJ 1,500 MG in SODIUM CHLORIDE 0.9% INJ 100 ML IV SCH ×2 (03:30→14:54)
[2017-11-01] MEDS: ESMOLOL DRIP INJ PREMIX 250 ML IV PRN ×5 (04:24→21:09)
[2017-11-01] MEDS: PROPOFOL 1000 MG/100 ML INJ 100 ML IV PRN ×5 (04:24→23:17)
[2017-11-01] MEDS: methylPREDNISolone SOD SUCC 40 MG/1 ML VIAL IV PUSH SCH ×3 (05:28→17:27)
[2017-11-01] MEDS: DOCUSATE SODIUM 50 MG/SENNA 8.6 MG TAB PO SCH ×2 (07:59→21:10)
[2017-11-01] MEDS: CHLORHEXIDINE 0.12% (ORAL KIT) 15 ML CUP MT SCH ×2 (07:59→20:00)
[2017-11-01] MEDS: SODIUM CHLORIDE 0.9% FLUSH 10 ML FLUSH IV FLUSH SCH ×2 (07:59→21:10)
[2017-11-01] MEDS: FAMOTIDINE 20 MG/2 ML VIAL IV PUSH SCH ×2 (07:59→21:10)
[2017-11-01 08:57] LABS: HEMATOCRIT 30.1 % (39.0-51.0); HEMOGLOBIN 10.4 GM/DL (13.0-17.0); MEAN CELL VOLUME 90.4 FL (80.0-100.0); MEAN CORPUSCULAR HEMOGLOBIN 31.2 PG (27.0-34.0); MEAN CORPUSCULAR HGB CONC 34.6 % (32.0-36.0); MEAN PLATELET VOLUME 10.3 FL (7.0-11.0); PLATELET COUNT 77 TH/MM3 (150-450); RED BLOOD COUNT 3.33 MIL/MM3 (4.50-5.90); RED CELL DISTRIBUTION WIDTH 13.3 % (11.6-17.2); WHITE BLOOD COUNT 9.4 TH/MM3 (4.0-11.0)
[2017-11-01 09:26] LABS: ALBUMIN 1.9 GM/DL (3.4-5.0); CALCIUM 7.1 MG/DL (8.5-10.1); CALCIUM-PROTEIN CORRECTED 7.9 MG/DL (8.5-10.1); CREATININE 2.01 MG/DL (0.60-1.30); PHOSPHORUS 2.9 MG/DL (2.5-4.9); TOTAL BILIRUBIN ADULT 2.2 MG/DL (0.2-1.0); TOTAL PROTEIN 5.5 GM/DL (6.4-8.2)
--- NOTE | 2017-11-01 09:29 | HHI.CCPN ---
Subjective Remarks/Hospital Course 67-year-old male presents to the emergency department via EMS for evaluation of shortness of breath and pain and numbness to the left leg. Patient believes that he is shortness of breath is related to the pain in his leg. He cannot feel his leg from his groin down. He denies any history of the same. He does report history of COPD. He denies any known fevers or chills. He denies chest pain. Patient received 1 L normal saline bolus via EMS. Patient denies any history of bleeding or blood clots. No recent surgery or travel. No hemoptysis. No history of DVT/PE. He denies leg edema. Patient states the pain is 10/10 to the left leg. No exacerbating or alleviating factors. Moderate severity. 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 The right inflow is heavily diseased as well. The patient was evaluated by vascular surgeon international relations teacher and was immediately started on heparin drip. SUBJ 10/29: Remains critically ill, encephalopathy. 4 out of 4 bottles positive for GNR. I will change Rocephin to Zosyn renally dosed to cover for Pseudomonas also. Continue azithromycin. Creatinine still elevated but slightly improved. WBC count slightly increased 17.2 now with 24% bands. Source of GNR sepsis could be either UTI or pneumonia. Will consult ID as well. Remains on IV heparin for acute left limb ischemia 10/30: platelets falling >50% again today. Cr still rising, but could be ATN/ contrast nephropathy. blood cultures growing e. coli by PCR, full speciation to follow. urine culture pending. discussed case with Dr. Lopez, will stop heparin , start argatroban and send HIT/CHARLEEN. denies complaints for me, but does have objective tenderness on palpation, RUQ. 10/31: Emergently intubated today a.m. by Dr. Puckett for worsening mental status, encephalopathy and worsening respiratory failure. Prior to intubation Dr. Puckett ' exam revealed right upper quadrant tenderness. Ultrasound of the gallbladder yesterday showed gallstones. Overnight Argatroban was supratherapeutic and was held, platelet count also dropped to 30,000, HIT screen is pending. Postintubation bilateral pupils are reactive but unequal. Will repeat CT of the head, CT abdomen pelvis. BUN 49/Creat 2.7, leukocytosis persisting 11/01: no improvements. ct abd/pelvis with evidence of possible choledocholithiasis. perc doug tube planned for this AM. on esmolol infusion for afib RVR. fio2 increased to 70%. Objective Vital Signs Date Time Temp Pulse Resp B/P (MAP) Pulse Ox O2 Delivery O2 Flow Rate FiO2 11/01/17 08:47 115 132/61 11/01/17 07:37 92 70 11/01/17 04:00 97.8 19 11/01/17 00:42 15.00 10/30/17 19:30 Nasal Cannula Intake and Output 11/01/17 11/01/17 11/02/17 08:00 16:00 00:00 Intake Total 1610 ml Output Total 975 ml Balance 635 ml Result Diagram: 11/01/17 0830 10/31/17 1515 Imaging Last 24 hours Impressions Chest X-Ray 10/28/172010 Signed Impressions: Service Date/Time: Saturday, October 28, 2017 20:20 - CONCLUSION: Left lower lobe infiltrate. Mild cardiomegaly. Juanjose Mckeon Jr., MD Objective Remarks GENERAL: middle-aged male, currently intubated, sedated, critically ill SKIN: Warm and dry. HEAD: Normocephalic. ENT: No scleral icterus. No injection or drainage. Pupils are now equal at 3mm, reactive. Orotracheally intubated NECK: Supple, trachea midline. No JVD. CARDIOVASCULAR: Tachycardic rate heart rate in 110s now. on esmolol infusion RESPIRATORY: Intubated. PRVC/AC. Air entry equal no significant wheezes. fio2 70%. GASTROINTESTINAL: Abdomen soft, mildly distended. no guarding. MUSCULOSKELETAL: No cyanosis, or edema. Left foot cool to touch. Bilateral DP + ve with Doppler NEURO EXAM: Intubated, RASS -3. w/d to pain. does not follow commands. A/P Assessment and Plan Assessment: 67yM with limb ischemia, severe sepsis and associated multiorgan failure including shock liver, acute kidney injury. remains critically ill and organ failure worsening. Now with acute respiratory failure and worsening encephalopathy. HIT negative. holding anticoagulation. plan for percutaneous cholecystostomy tube today. platelets 70k today. will need to restart heparin post procedure. GI consulted, may need ERCP as well. in terms of hypoxic respiratory failure, likely ARDS at this point. still too c ASSESSMENT/PLAN: NEURO: Acute metabolic encephalopathy -Intubated for airway protection and worsening respiratory failure -Propofol for sedation and vent synchrony -No sedation vacation until metabolic encephalopathy and sepsis improved -Stat CT of the head RESP: Acute hypoxemic respiratory failure COPD exacerbation Left lower lobe pneumonia ARDS -Emergently intubated and placed on mechanical ventilation 10/31/2017 -PRVC/AC, DuoNeb scheduled and as needed, ventilator bundle, head of bed elevation to 30 -Steroids IV. Pulmonary consultation: Dr. Johnson following -Continue Zosyn. -Follow-up sputum and repeat blood cultures, urine culture - left sided pleural effusion could be parapneumonic. will eval with bedside ultrasound and if large enough, will place pigtail tube to rule out empyema. CVS: Acute on chronic left limb ischemia Afib with RVR -CTA showed severe aorto-iliac occlusive disease with left iliac thrombosis -Significant calcifications and peripheral vascular disease -2D echo: EF 50%, no significant valvular lesions. left sided pleural effusion -Argatroban started 10/30, placed on hold due to worsening mental status, supratherapeutic -HIT screen negative. -Esmolol gtt GI Acute hepatic dysfunction Hyperbilirubinemia Transaminitis Acute Choledocholithiasis -Trend LFTs, gallbladder ultrasound showed multiple gallstones -Most likely secondary to severe sepsis. -Repeat CT abdomen/pelvis 10/31: c/w choledocholithiasis - plan for perc doug tube today - GI consult. may need ERCP as well - continue NPO Acute kidney injury Acute metabolic acidosis -worsening today on BMP. -Creatinine 2.7 worsening -nephrology consulted -Unknown baseline -Hydration, Strict I's and O's -Likely ATN from sepsis and may be component of contrast nephropathy. ID E COLI bacteremia/severe sepsis Enterococcus in the urine: possible colonization vs. UTI. Acute Choledocholithiasis -Source of bacteremia could be pneumonia or UTI or cholecystitis -Zosyn - unclear if enterococcus is clinical uti or colonization. will ask ID's advice before treating. -Follow-up repeat blood urine and sputum culture -ID following -Gallbladder u/s, shows gallstones HEME: acute thrombocytopenia: improving. -Most likely etiology is sepsis with consumption - HIT negative. - continue to hold argatroban given perc doug tube today. will need to restart heparin once procedures complete. -Hold aspirin DVT GI prophylaxis -Vickey's and SCDs -anticoagulation on hold -Pepcid Dispo: needs to remain in ICU. all organ systems worsening, very critical with prognosis guarded Critical Care: The total critical care time was 52 minutes. Time to perform other separately billable procedures was not included in the critical care time. Patient remains critically ill with septic shock, multiorgan failure, choledocholithiasis, near-critical limb ischemia. Didier Rahman MD November 01, 2017 09:29
--- NOTE | 2017-11-01 10:33 | HHI.NPPN ---
Subjective History of Present Illness patient is a 67 year old male with ischemic L leg, PVD HTN, ARF Objective Data Data Vital Signs Date Time Temp Pulse Resp B/P (MAP) Pulse Ox O2 Delivery O2 Flow Rate FiO2 11/01/17 08:47 115 132/61 11/01/17 08:00 70 11/01/17 08:00 106 11/01/17 08:00 99.5 106 17 137/60 (85) 92 11/01/17 07:37 92 70 11/01/17 06:00 112 11/01/17 04:40 92 70 11/01/17 04:24 104 129/81 11/01/17 04:00 97.8 112 19 122/62 (82) 91 11/01/17 04:00 112 11/01/17 04:00 60 11/01/17 02:00 97 11/01/17 01:04 95 60 11/01/17 00:42 96 15.00 100 11/01/17 00:00 60 11/01/17 00:00 97.7 98 24 118/72 (87) 95 11/01/17 00:00 98 10/31/17 22:52 94 60 10/31/17 22:26 85 106/60 10/31/17 22:00 86 10/31/17 20:45 114 122/61 10/31/17 20:00 60 10/31/17 20:00 114 10/31/17 20:00 98.0 114 18 126/66 (86) 95 10/31/17 19:40 95 60 10/31/17 18:00 111 10/31/17 17:16 130/72 10/31/17 16:50 98.2 101 16 124/68 96 10/31/17 16:34 97.7 109 19 120/65 95 10/31/17 16:27 96 120/65 10/31/17 16:04 97 75 10/31/17 16:00 98.2 109 18 119/66 (83) 94 10/31/17 16:00 109 10/31/17 16:00 60 10/31/17 15:35 98.1 109 19 109/65 94 10/31/17 15:19 98.1 108 21 109/63 95 10/31/17 14:00 109 10/31/17 13:35 108 112/64 10/31/17 13:27 97 75 10/31/17 13:25 97.4 108 19 112/64 97 10/31/17 13:10 98.1 108 18 108/63 96 10/31/17 13:05 107 108/63 10/31/17 13:04 107 108/63 10/31/17 12:00 98.1 104 16 104/81 (89) 95 10/31/17 12:00 104 10/31/17 12:00 75 10/31/17 11:30 98.4 105 19 99/56 94 10/31/17 11:16 98.1 104 18 99/56 93 10/31/17 11:00 104 98/57 -: 11/01/17 0830 11/01/17 0830 Microbiology 10/31/17 Gram Stain - Final, Resulted 10/31/17 Sputum Culture, Resulted Pending Physical Exam General Appearance: Well Developed, Well Nourished Neck Neck Exam: Neck Supple Pulmonary Resp Exam: Clear Bilaterally, Breath Sounds Equal Gastrointestinal/Abdomen GI Exam: Soft, Non-Tender, Bowel Sounds Present Integumentary Skin Exam: Lesion(s) (toe ischemic) Extremeties Extremities Exam: Trace Edema Assessment/Plan Problem List: (1) Acute renal failure ICD Codes: N17.9 - Acute kidney failure, unspecified Plan: Patient has rhabdomyolysis will hydrate on IV fluid to D5 3 A of sodium bicarbonate at 150 cc an hour decrease to 83 cc/hr due to Anasarca cr declined Follow urine myoglobin US increase echogenicity Follow BMP Avoid nephrotoxins (2) Rhabdomyolysis ICD Codes: M62.82 - Rhabdomyolysis Plan: Follow CPK Alkalinize urine (3) Acidosis, metabolic ICD Codes: E87.2 - Acidosis Plan: D5 with 3 A of bicarbonate (4) CKD (chronic kidney disease) stage 4, GFR 15-29 ml/min ICD Codes: N18.4 - Chronic kidney disease, stage 4 (severe) Plan: GFR is low (5) Peripheral vascular disease ICD Codes: I73.9 - Peripheral vascular disease, unspecified Plan: Vascular surgery follow-up (6) Ischemia of left lower extremity ICD Codes: I99.8 - Other disorder of circulatory system Status: Acute Plan: Patient is on anticoagulation (7) Pneumonia ICD Codes: J18.9 - Pneumonia, unspecified organism Status: Acute Plan: ID following on ampicillin/sulbactam and azithromycin (8) Sepsis ICD Codes: A41.9 - Sepsis, unspecified organism Status: Acute Plan: As above he has E. coli in the blood and enterococcus in the urine Problem Qualifiers (1) Acute renal failure: Qualified Codes: N17.0 - Acute kidney failure with tubular necrosis (2) Pneumonia: Qualified Codes: J18.1 - Lobar pneumonia, unspecified organism (3) Sepsis: Qualified Codes: A41.9 - Sepsis, unspecified organism Alexy Lemons MD November 01, 2017 10:33
--- NOTE | 2017-11-01 11:36 | PD.RAD ---
Post Procedure Progress Note Pre Procedure Diagnosis: (1) Sepsis Post Procedure Diagnosis: (1) Sepsis Procedure Date: November 01, 2017 Supervising Radiologist: David Dixon Proceduralist/Assist: RT Rafita(R), Other Anesthesia: Conscious Sedation Plan of Activity Patient to Unit: ROPU Patient Condition: Good See PACS Report for procedural detail/treatment David Dixon MD November 01, 2017 11:36
--- NOTE | 2017-11-01 11:36 | PD.CONS ---
HPI History of Present Illness This is a 67 year old male who was admitted to the hospital on 10/28/2017 with symptoms of shortness of breath as well as pain and numbness in his left leg he also noted some low back pain on Saturday after lifting. Patient is now being managed in the intensive care with ventilator support and sedation after decline in his condition of septic shock. Abdomen is distended and semifirm, tympany, increase gaseous bowel sounds. Patient is currently being managed on esmolol drip as well as bicarb drip and is currently in atrial fib with a heart rate of 112. Current labs show hemoglobin 10.4, WBC count 9.4, INR 1.7. Labs that were pending include elevated liver enzymes AST 111 ALT 81 total bilirubin 2.2 which could be related to fatty liver disease seen on ultrasound versus liver shock. CT scan done this a.m. 11/01/2017 showed gallstones which do appear to be in areas of increased density within the common bile duct concerning for choledocholithiasis. Sigmoid colon diverticula, 4 mm nonobstructing left renal stone, Bibasilar areas of consolidation or atelectasis worse on the left with mild bilateral pleural effusions. Ultrasound of the gallbladder done on 10/30/2017 did show fatty infiltrations of the liver and multiple gallstones no biliary tract obstruction. Patient is now critically ill and is going down to IR for biliary drain placement. Home medications listed show omeprazole 40 mg daily which is possibly related to history of GERD. Patient has been a long-term tobacco user according to the record quit smoking in July 2017, no use of alcohol or substance abuse. There is no family present and most of his history is being gathered from the staff and the record. (Maura Lauren) PFSH Past Medical History GERD COPD Tobacco dependence According to the record no history of DVT or PE Past Surgical History No known surgery (Maura Lauren) Coded Allergies: No Known Allergies (Unverified , 10/28/17) Medications Administered Medications Medications (Trade) Dose Ordered Sig/Olesya Route PRN Reason Start Time Stop Time Status Last Admin Dose Admin Sodium Chloride (NS Flush) 2 ml BID IV FLUSH 10/29/17 09:00 11/01/17 07:59 Hydromorphone HCl (Dilaudid Pf Inj) 1 mg Q4H PRN IV PAIN SCALE 6 TO 10 10/28/17 22:30 10/30/17 17:59 Famotidine (Pepcid Inj) 10 mg Q12HR IV PUSH 10/29/17 09:00 11/01/17 07:59 Albuterol/ Ipratropium (Duoneb Neb) 1 ampule Q2HR NEB PRN INH WHEEZING 10/28/17 22:15 10/31/17 05:34 Miscellaneous Information ([facility] [place] [facility] Information) 1 Q361D XX 10/28/17 22:15 10/28/17 22:15 Chlorhexidine Gluconate (Chlorhexidine 2% Cloth) 3 pack Taper DAILY@04 TOP 10/29/17 04:00 10/25/18 03:59 10/29/17 03:16 Senna/Docusate Sodium (Elvira-Colace) 1 tab BID PO 10/29/17 09:00 11/01/17 07:59 Methylprednisolone Sodium Succinate (SoluMEDROL INJ) 40 mg Q6HR IV PUSH 10/29/17 00:00 11/01/17 05:28 Diltiazem HCl (Cardizem Cd) 240 mg DAILY PO 10/29/17 09:00 Future Hold 10/30/17 09:02 Aspirin (Aspirin Chew) 81 mg DAILY CHEW 10/29/17 11:45 Future Hold 10/30/17 09:02 Esmolol HCl/ Sodium Chloride 250 ml @ 26.7 mls/hr TITRATE PRN IV Blood Pressure Management 10/31/17 01:45 11/01/17 08:47 Esmolol HCl (Brevibloc Bolus Inj) 45 mg BOLUS PRN IV PUSH Rebolus 10/31/17 01:45 10/31/17 02:11 Phenylephrine HCl 40 mg/Dextrose 500 ml @ 30 mls/hr TITRATE PRN IV Blood pressure management 10/31/17 06:15 10/31/17 06:47 Propofol 100 ml @ 2.73 mls/hr TITRATE PRN IV SEDATION 10/31/17 07:00 11/01/17 08:43 Chlorhexidine Gluconate (Peridex 0.12% Liq) 15 ml BID@08,20 MT 10/31/17 08:00 11/01/17 07:59 Sodium Bicarbonate 150 meq/Dextrose 1,150 ml @ 150 mls/hr Q7H40M IV 10/31/17 17:00 11/01/17 07:59 Family History Unknown Social History Tobacco dependence quit in July 2017 No known alcohol No known illicit drugs (Maura Lauren) Review of Systems Unable to assess secondary to patient's sedation (Maura Lauren) GI Exam Vitals I&O Vital Signs Date Time Temp Pulse Resp B/P (MAP) Pulse Ox O2 Delivery O2 Flow Rate FiO2 11/01/17 10:00 93 11/01/17 09:40 94 11/01/17 08:47 115 132/61 11/01/17 08:00 70 11/01/17 08:00 106 11/01/17 08:00 99.5 106 17 137/60 (85) 92 11/01/17 07:37 92 70 11/01/17 06:00 112 11/01/17 04:40 92 70 11/01/17 04:24 104 129/81 11/01/17 04:00 97.8 112 19 122/62 (82) 91 11/01/17 04:00 112 11/01/17 04:00 60 11/01/17 02:00 97 11/01/17 01:04 95 60 11/01/17 00:42 96 15.00 100 11/01/17 00:00 60 11/01/17 00:00 97.7 98 24 118/72 (87) 95 11/01/17 00:00 98 10/31/17 22:52 94 60 10/31/17 22:26 85 106/60 10/31/17 22:00 86 10/31/17 20:45 114 122/61 10/31/17 20:00 60 10/31/17 20:00 114 10/31/17 20:00 98.0 114 18 126/66 (86) 95 10/31/17 19:40 95 60 10/31/17 18:00 111 10/31/17 17:16 130/72 10/31/17 16:50 98.2 101 16 124/68 96 10/31/17 16:34 97.7 109 19 120/65 95 10/31/17 16:27 96 120/65 10/31/17 16:04 97 75 10/31/17 16:00 98.2 109 18 119/66 (83) 94 10/31/17 16:00 109 10/31/17 16:00 60 10/31/17 15:35 98.1 109 19 109/65 94 10/31/17 15:19 98.1 108 21 109/63 95 10/31/17 14:00 109 10/31/17 13:35 108 112/64 10/31/17 13:27 97 75 10/31/17 13:25 97.4 108 19 112/64 97 10/31/17 13:10 98.1 108 18 108/63 96 10/31/17 13:05 107 108/63 10/31/17 13:04 107 108/63 10/31/17 12:00 98.1 104 16 104/81 (89) 95 10/31/17 12:00 104 10/31/17 12:00 75 10/31/17 11:30 98.4 105 19 99/56 94 10/31/17 11:16 98.1 104 18 99/56 93 I/O 10/31/17 10/31/17 10/31/17 11/01/17 11/01/17 11/01/17 07:00 15:00 23:00 07:00 15:00 23:00 Intake Total 450 ml 1539 ml 1408 ml 1825 ml Output Total 250 ml 380 ml 975 ml Balance 200 ml 1539 ml 1028 ml 850 ml Intake Oral 100 ml IV Total 350 ml 1090 ml 815 ml 1825 ml FFP 563 ml Platelets 409 ml Blood Product IV Normal Saline Flush 40 ml 30 ml Output Urine Total 250 ml 380 ml 975 ml # Bowel Movements 0 Imaging Last Impressions Abdomen/Pelvis CT 11/01/17 0000 Signed Impressions: CONCLUSION: 1. Gallstones. There do appear to be areas of increased density within the com mon bile duct concerning for choledocholithiasis. 2. 4 mm nonobstructing left renal stone. 3. Sigmoid colon diverticula. 4. Bibasilar areas of consolidation or atelectasis being worse on the left wit h mild bilateral pleural effusions. Renal Ultrasound 10/31/17 0000 Signed Impressions: CONCLUSION: 1. No hydronephrosis. 2. Increased cortical echogenicity consistent with medical renal disease. Head Magnetic Resonance Angiography 10/31/17 0000 Signed Impressions: CONCLUSION: 1. Unremarkable MRA of the brain. Head CT 10/31/17 Signed Impressions: CONCLUSION: 1. Negative CT Head non contrast. 2. No evidence of acute infarct, hemorrhage, mass or edema. Chest X-Ray 10/31/17 Signed Impressions: CONCLUSION: Satisfactory position of endotracheal and nasogastric tubes. Increasing airspace disease and bilateral effusions. Brain MRI 10/31/17 Signed Impressions: CONCLUSION: 1. Senescent changes with minimal periventricular ischemic white matter demyel ination. 2. No acute abnormality. Specifically, no acute infarction, mass or hemorrhage . Gall Bladder Ultrasound 10/30/17 Signed Impressions: CONCLUSION: 1. Fatty infiltration of the liver. 2. Multiple stones in the gallbladder. No biliary tract obstruction. Extremity Arterial Study 10/28/17 Signed Impressions: CONCLUSION: 1. Abnormal ABIs, left greater than right. The left DAVID is significantly dimin ished at 0.14. Aorta w/Runoff CTA 10/28/17 Signed Impressions: Service Date/Time: Saturday, October 28, 2017 21:50 - CONCLUSION: 1. Acute occlusion of the left inflow with concern for short segment occlusion involving the distal right inflow. This raises concern for an embolic event. 2. Right lower extremity shows scattered disease throughout the common femoral artery, SFA and [id number] popliteal artery with three-vessel runoff to the foot. 3. Left lower extremity with reconstitution of the common femoral artery with diseased out flow and two vessel runoff to the foot as detailed above. 4. 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 5. Hepatic steatosis. 6. Cholelithiasis. Juanjose Mckeon Jr., MD Laboratory Test 10/31/17 15:15 10/31/17 16:18 10/31/17 17:10 11/01/17 08:30 White Blood Count 17.9 TH/MM3 9.4 TH/MM3 Red Blood Count 3.82 MIL/MM3 3.33 MIL/MM3 Hemoglobin 11.7 GM/DL 10.4 GM/DL Hematocrit 35.2 % 30.1 % Mean Corpuscular Volume 92.2 FL 90.4 FL Mean Corpuscular Hemoglobin 30.8 PG 31.2 PG Mean Corpuscular Hemoglobin Concent 33.3 % 34.6 % Red Cell Distribution Width 13.9 % 13.3 % Platelet Count 98 TH/MM3 77 TH/MM3 Mean Platelet Volume 9.1 FL 10.3 FL CBC Comment AUTO DIFF Differential Total Cells Counted 100 Neutrophils % (Manual) 84 % Band Neutrophils % 8 % Lymphocytes % 6 % Monocytes % 2 % Neutrophils # (Manual) 16.5 TH/MM3 Nucleated Red Blood Cells 1 /100 WBC Differential Comment FINAL DIFF MANUAL Platelet Estimate LOW Platelet Morphology Comment NORMAL Tear Drop Cells 1+ Blood Urea Nitrogen 73 MG/DL 63 MG/DL Creatinine 2.63 MG/DL 2.01 MG/DL Random Glucose 129 MG/DL 158 MG/DL Total Protein 5.7 GM/DL 5.5 GM/DL Calcium Level 7.1 MG/DL 7.1 MG/DL Sodium Level 145 MEQ/L 143 MEQ/L Potassium Level 4.2 MEQ/L 3.6 MEQ/L Chloride Level 116 MEQ/L 110 MEQ/L Carbon Dioxide Level 15.2 MEQ/L 22.0 MEQ/L Anion Gap 14 MEQ/L 11 MEQ/L Estimat Glomerular Filtration Rate 24 ML/MIN 33 ML/MIN Protein Corrected Calcium 7.8 MG/DL 7.9 MG/DL Total Creatine Kinase 4387 U/L 2991 U/L Creatine Kinase MB 11.7 NG/ML 4.7 NG/ML Creatine Kinase MB % 0.3 % 0.2 % Prothrombin Time 17.4 SEC Prothromb Time International Ratio 1.7 RATIO Activated Partial Thromboplast Time 46.7 SEC Urine Eosinophils NONE SEEN /HPF Urine Random Creatinine 97.4 MG/DL Urine Random Sodium 14 MEQ/L Albumin 1.9 GM/DL Phosphorus Level 2.9 MG/DL Alkaline Phosphatase 67 U/L Aspartate Amino Transf (AST/SGOT) 111 U/L Alanine Aminotransferase (ALT/SGPT) 81 U/L Total Bilirubin 2.2 MG/DL Lactic Acid Level 1.4 mmol/L Date/Time Source Procedure Growth Status 10/30/17 20:38 Blood Peripheral Aerobic Blood Culture - Preliminary NO GROWTH IN 2 DAYS Resulted 10/30/17 20:38 Blood Peripheral Anaerobic Blood Culture - Preliminary NO GROWTH IN 2 DAYS Resulted 10/31/17 10:40 Sputum Endotracheal Gram Stain - Final Resulted 10/31/17 10:40 Sputum Endotracheal Sputum Culture Pending Resulted 10/29/17 00:00 Urine Catheterized Urine Urine Culture - Final Enterococcus Faecalis Complete Physical Examination HEENT: Oral ET tube and gastric tube present, clamped normocephalic; atraumatic ; no obvious jaundice. NECK: Neck is supple, no JVD, no lymphadenopathy. CHEST: Diminished breath sounds bibasilar, mild rhonchi CARDIAC: Irregular heart rhythm atrial fib RVR currently 112 bpm ABDOMEN: Large, firm, tympanic, positive bowel sounds EXTREMITIES: Mild lower extremity edema left greater than right edema. SKIN: Normal; no rash; no jaundice. 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 Gallbladder ultrasound was done on 10/30/2017 showed fatty infiltration of liver and multiple gallstones without biliary obstruction. Current CT shows gallstones in the areas of increased density within the common bile duct concerning for choledocholithiasis. 4 mm nonobstructing left renal stone, sigmoid colon diverticula, bibasilar areas of consolidation and atelectasis worse on the left with mild bilateral pleural effusions. Patient is currently on ventilator management in the ICU setting with gastric tube in place and sedation. Abdomen is round, firm, tympanic, bowel sounds are present. Current plan for patient is INR for biliary drain placement LUBA. Patient has Peña catheter with dark yellow urine. Current labs show hemoglobin 12.4, WBC count 9.4, INR 1.7. Other current labs show elevated liver enzymes AST 111, ALT 81 , total bilirubin 2.2 which could be related to liver shock and/or fatty liver disease seen on gallbladder ultrasound. Fatty liver disease versus shock liver versus hepatic disease nonalcoholic Cholelithiasis, biliary obstruction History of GERD Plan To IR for biliary drain placement, Monitor labs with special attention to LFTs and hemoglobin, INR. Pepcid IV steroids Antiemetics, Zofran Supportive care Labs ordered for further liver workup Further recommendations to follow Patient was seen per myself and Dr. Peterson, this note was written on his behalf (Maura Lauren) Physician Comments Patient seen and examined elevated liver function tests in a patient who is septic and has gallstones with possible or probable choledocholithiasis Agree with above Continue with current supportive care Monitor labs Patient at this point has been served with the biliary drain done by interventional radiology At some point he will require an ERCP to remove stones if IR is unable to push them out (Joseph Petesron MD) Problem Qualifiers (1) Sepsis: Qualified Codes: A41.9 - Sepsis, unspecified organism Maura Lauren November 01, 2017 11:36 Joseph Peterson MD November 01, 2017 13:14
--- NOTE | 2017-11-01 13:53 | HHI.IDPN ---
Note Infectious Disease Note Patient remains on the ventilator. Intubated on 10/31. He became agitated, tachypneic, delirious developed respiratory distress. Phenylephrine has been discontinued.. Cholecystostomy tube placed this a.m. Afebrile. Blood culture has E. coli. Sensitive strain. Urine culture has enterococcus faecalis. Sputum culture has normal terrell. MRI of the brain shows no acute abnormality. Repeat blood culture from 10/30 has no growth. 67-year-old white male who presented to the Emergency Department with shortness of breath and left leg pain. In the emergency Department his heart rate was 102 and temperature was 100.7. White blood cell count was elevated at 13.3 and lactic acid level was 7.4. Chest x-ray showed left lung infiltrate. Urinalysis showed 28 white cells with white blood cell clumps. PAST MEDICAL HISTORY: COPD, coronary artery disease, hernia repair. ALLERGIES: NO KNOWN DRUG ALLERGIES. Current Medications Medications (Trade) Dose Ordered Sig/Olesya Route PRN Reason Start Time Stop Time Status Last Admin Dose Admin Sodium Chloride (NS Flush) 2 ml UNSCH PRN IV FLUSH FLUSH AFTER USING IV ACCESS 10/28/17 22:15 Sodium Chloride (NS Flush) 2 ml BID IV FLUSH 10/29/17 09:00 11/01/17 07:59 Acetaminophen (Tylenol) 650 mg Q6H PRN PO PAIN 1-5 AND/OR FEVER >101F 10/28/17 22:15 Hydromorphone HCl (Dilaudid Pf Inj) 1 mg Q4H PRN IV PAIN SCALE 6 TO 10 10/28/17 22:30 10/30/17 17:59 Famotidine (Pepcid Inj) 10 mg Q12HR IV PUSH 10/29/17 09:00 11/01/17 07:59 Ondansetron HCl (Zofran Inj) 4 mg Q6H PRN IV PUSH NAUSEA OR VOMITING 10/28/17 22:15 Temazepam (Restoril) 15 mg HS PRN PO INSOMNIA 10/28/17 22:15 Albuterol/ Ipratropium (Duoneb Neb) 1 ampule Q2HR NEB PRN INH WHEEZING 10/28/17 22:15 10/31/17 05:34 Miscellaneous Information ([facility] [place] Nursing Information) 1 Q361D XX 10/28/17 22:15 10/28/17 22:15 Chlorhexidine Gluconate (Chlorhexidine 2% Cloth) 3 pack Taper DAILY@04 TOP 10/29/17 04:00 10/25/18 03:59 10/29/17 03:16 Chlorhexidine Gluconate (Chlorhexidine 2% Cloth) 3 pack UNSCH PRN TOP HYGIENIC CARE 10/28/17 22:15 Senna/Docusate Sodium (Elvira-Colace) 1 tab BID PO 10/29/17 09:00 11/01/17 07:59 Magnesium Hydroxide (Milk Of Magnesia Liq) 30 ml Q12H PRN PO Mild constipation 10/28/17 22:15 Sennosides (Senokot) 17.2 mg Q12H PRN PO Moderate constipation 10/28/17 22:15 Bisacodyl (Dulcolax Supp) 10 mg DAILY PRN RECTAL SEVERE CONSITIPATION 10/28/17 22:15 Lactulose (Lactulose Liq) 30 ml DAILY PRN PO SEVERE CONSITIPATION 10/28/17 22:15 Methylprednisolone Sodium Succinate (SoluMEDROL INJ) 40 mg Q6HR IV PUSH 10/29/17 00:00 11/01/17 11:54 Diltiazem HCl (Cardizem Cd) 240 mg DAILY PO 10/29/17 09:00 Future Hold 10/30/17 09:02 Aspirin (Aspirin Chew) 81 mg DAILY CHEW 10/29/17 11:45 Future Hold 10/30/17 09:02 Esmolol HCl/ Sodium Chloride 250 ml @ 26.7 mls/hr TITRATE PRN IV Blood Pressure Management 10/31/17 01:45 11/01/17 13:01 Esmolol HCl (Brevibloc Bolus Inj) 45 mg BOLUS PRN IV PUSH Rebolus 10/31/17 01:45 10/31/17 02:11 Phenylephrine HCl 40 mg/Dextrose 500 ml @ 30 mls/hr TITRATE PRN IV Blood pressure management 10/31/17 06:15 10/31/17 06:47 Terbutaline Sulfate (Brethine Inj) 1 mg UNSCH PRN SQ For Extravasation 10/31/17 06:15 Propofol 100 ml @ 2.73 mls/hr TITRATE PRN IV SEDATION 10/31/17 07:00 11/01/17 13:02 Chlorhexidine Gluconate (Peridex 0.12% Liq) 15 ml BID@08,20 MT 10/31/17 08:00 11/01/17 07:59 Sodium Bicarbonate 150 meq/Dextrose 1,150 ml @ 150 mls/hr Q7H40M IV 10/31/17 17:00 11/01/17 07:59 Ampicillin Sodium/ Sulbactam Sodium 1500 mg/Sodium Chloride 100 ml @ 200 mls/hr Q12H IV 11/01/17 15:00 Albuterol/ Ipratropium (Duoneb Neb) 1 ampule Q4HR NEB NEB 11/01/17 12:00 11/01/17 11:44 SOCIAL HISTORY: No tobacco. The patient quit smoking in 07/2017. No alcohol and no illicit drugs. The patient takes care of his elderly father at home who has dementia. FAMILY HISTORY: Noncontributory. OBJECTIVE: Vital Signs Date Time Temp Pulse Resp B/P (MAP) Pulse Ox O2 Delivery O2 Flow Rate FiO2 11/01/17 13:01 100 117/71 11/01/17 12:00 98.7 106 16 111/60 (77) 94 11/01/17 12:00 106 11/01/17 12:00 70 11/01/17 11:34 92 11/01/17 11:34 91 70 11/01/17 10:00 93 11/01/17 09:40 94 11/01/17 08:47 115 132/61 11/01/17 08:00 70 11/01/17 08:00 106 11/01/17 08:00 99.5 106 17 137/60 (85) 92 11/01/17 07:37 92 70 11/01/17 06:00 112 11/01/17 04:40 92 70 11/01/17 04:24 104 129/81 11/01/17 04:00 97.8 112 19 122/62 (82) 91 11/01/17 04:00 112 11/01/17 04:00 60 11/01/17 02:00 97 11/01/17 01:04 95 60 11/01/17 00:42 96 15.00 100 11/01/17 00:00 60 11/01/17 00:00 97.7 98 24 118/72 (87) 95 11/01/17 00:00 98 10/31/17 22:52 94 60 10/31/17 22:26 85 106/60 10/31/17 22:00 86 10/31/17 20:45 114 122/61 10/31/17 20:00 60 10/31/17 20:00 114 10/31/17 20:00 98.0 114 18 126/66 (86) 95 10/31/17 19:40 95 60 10/31/17 18:00 111 10/31/17 17:16 130/72 10/31/17 16:50 98.2 101 16 124/68 96 10/31/17 16:34 97.7 109 19 120/65 95 10/31/17 16:27 96 120/65 10/31/17 16:04 97 75 10/31/17 16:00 98.2 109 18 119/66 (83) 94 10/31/17 16:00 109 10/31/17 16:00 60 10/31/17 15:35 98.1 109 19 109/65 94 10/31/17 15:19 98.1 108 21 109/63 95 10/31/17 14:00 109 Laboratory Tests Test 10/31/17 03:00 10/31/17 09:34 10/31/17 15:15 11/01/17 08:30 White Blood Count 18.6 TH/MM3 21.3 TH/MM3 17.9 TH/MM3 9.4 TH/MM3 Red Blood Count 4.28 MIL/MM3 4.14 MIL/MM3 3.82 MIL/MM3 3.33 MIL/MM3 Hemoglobin 13.2 GM/DL 12.7 GM/DL 11.7 GM/DL 10.4 GM/DL Hematocrit 39.8 % 38.4 % 35.2 % 30.1 % Mean Corpuscular Volume 93.0 FL 92.7 FL 92.2 FL 90.4 FL Mean Corpuscular Hemoglobin 30.9 PG 30.7 PG 30.8 PG 31.2 PG Mean Corpuscular Hemoglobin Concent 33.2 % 33.1 % 33.3 % 34.6 % Red Cell Distribution Width 14.3 % 14.3 % 13.9 % 13.3 % Platelet Count 34 TH/MM3 48 TH/MM3 98 TH/MM3 77 TH/MM3 Mean Platelet Volume 11.6 FL 10.9 FL 9.1 FL 10.3 FL CBC Comment AUTO DIFF AUTO DIFF Differential Total Cells Counted 100 100 Neutrophils % (Manual) 86 % 84 % Band Neutrophils % 5 % 8 % Lymphocytes % 7 % 6 % Monocytes % 2 % 2 % Neutrophils # (Manual) 19.4 TH/MM3 16.5 TH/MM3 Differential Comment FINAL DIFF MANUAL FINAL DIFF MANUAL Platelet Estimate LOW LOW Platelet Morphology Comment NORMAL NORMAL Nucleated Red Blood Cells 1 /100 WBC Tear Drop Cells 1+ Laboratory Tests Test 10/31/17 07:45 10/31/17 15:15 11/01/17 08:30 Lactic Acid Level 0.6 mmol/L 1.4 mmol/L Blood Urea Nitrogen 73 MG/DL 63 MG/DL Creatinine 2.63 MG/DL 2.01 MG/DL Random Glucose 129 MG/DL 158 MG/DL Total Protein 5.7 GM/DL 5.5 GM/DL Calcium Level 7.1 MG/DL 7.1 MG/DL Sodium Level 145 MEQ/L 143 MEQ/L Potassium Level 4.2 MEQ/L 3.6 MEQ/L Chloride Level 116 MEQ/L 110 MEQ/L Carbon Dioxide Level 15.2 MEQ/L 22.0 MEQ/L Anion Gap 14 MEQ/L 11 MEQ/L Estimat Glomerular Filtration Rate 24 ML/MIN 33 ML/MIN Protein Corrected Calcium 7.8 MG/DL 7.9 MG/DL Total Creatine Kinase 4387 U/L 2991 U/L Creatine Kinase MB 11.7 NG/ML 4.7 NG/ML Creatine Kinase MB % 0.3 % 0.2 % Albumin 1.9 GM/DL Phosphorus Level 2.9 MG/DL Alkaline Phosphatase 67 U/L Aspartate Amino Transf (AST/SGOT) 111 U/L Alanine Aminotransferase (ALT/SGPT) 81 U/L Total Bilirubin 2.2 MG/DL Microbiology Date/Time Source Procedure Growth Status 10/30/17 20:38 Blood Peripheral Aerobic Blood Culture - Preliminary NO GROWTH IN 2 DAYS Resulted 10/30/17 20:38 Blood Peripheral Anaerobic Blood Culture - Preliminary NO GROWTH IN 2 DAYS Resulted 10/30/17 20:33 Blood Peripheral Aerobic Blood Culture - Preliminary NO GROWTH IN 2 DAYS Resulted 10/30/17 20:33 Blood Peripheral Anaerobic Blood Culture - Preliminary NO GROWTH IN 2 DAYS Resulted 11/01/17 11:05 Fluid Other Gram Stain Pending Received 11/01/17 11:05 Fluid Other Body Fluid Culture Pending Received 10/31/17 10:40 Sputum Endotracheal Gram Stain - Final Resulted 10/31/17 10:40 Sputum Endotracheal Sputum Culture - Preliminary HEAVY GROWTH NORMAL RESPIRATORY TERRELL... Resulted Microbiology Date/Time Source Procedure Growth Status 10/30/17 20:38 Blood Peripheral Aerobic Blood Culture - Preliminary NO GROWTH IN 1 DAY Resulted 10/30/17 20:38 Blood Peripheral Anaerobic Blood Culture - Preliminary NO GROWTH IN 1 DAY Resulted 10/30/17 20:33 Blood Peripheral Aerobic Blood Culture - Preliminary NO GROWTH IN 1 DAY Resulted 10/30/17 20:33 Blood Peripheral Anaerobic Blood Culture - Preliminary NO GROWTH IN 1 DAY Resulted 10/28/17 20:20 Blood Peripheral Aerobic Blood Culture - Final Escherichia Coli Complete 10/28/17 20:20 Anaerobic Blood Culture - Final Escherichia Coli Complete 10/28/17 20:15 Blood Peripheral Aerobic Blood Culture - Final Escherichia Coli Complete 10/28/17 20:15 Anaerobic Blood Culture - Final Escherichia Coli Complete 10/31/17 10:40 Sputum Endotracheal Gram Stain Pending Received 10/31/17 10:40 Sputum Endotracheal Sputum Culture Pending Received 10/29/17 00:00 Urine Catheterized Urine Urine Culture - Final Enterococcus Faecalis Complete PHYSICAL EXAMINATION: GENERAL: On the ventilator. Unresponsive. HEENT: Oropharynx with slightly dry mucosa. NECK: Supple without adenopathy. No swelling. LUNGS: Decreased clear breath sounds. HEART: Regular rate and rhythm. Distant S1 and S2. No audible murmurs. ABDOMEN: Obese, less distended. Cholecystostomy tube in place. Biliary drainage. EXTREMITIES: No clubbing or cyanosis or edema. Left foot is currently warm. Not appearing dusky today. Doppler pulses obtained. SKIN: No diffuse rash. NEUROLOGIC: Unable to assess. PSYCHIATRIC: Unable to assess. IMPRESSION: 1. Severe sepsis due to E. coli very likely secondary to acute cholecystitis. 2. Bacteriuria with less than 10,000 Enterococcus faecalis 3. Pneumonia. Bilateral airspace disease on chest x-ray. 4. Leukocytosis secondary to infection. WBC improved. 5. Acute kidney disease likely resulting from sepsis. Renal function remains poor. Showing improvement. RECOMMENDATIONS: 1. Continue ampicillin/sulbactam. Adequate coverage for E. coli and enterococcus. 2. Follow biliary fluid. 3. Monitor renal function. 4. Follow the clinical status. Charles Morales MD November 01, 2017 13:53
--- NOTE | 2017-11-01 14:50 | HHI.PR ---
Subjective Remarks 67 YOWM with COPD,Sepsis, ischemia of leg Developed RF, intubated Plt decreased had Pl transfusion sedated Off Argatroban has bloody trach secretions had Cholycystostomy drain placed Objective Vital Signs Vital Signs Date Time Temp Pulse Resp B/P (MAP) Pulse Ox O2 Delivery O2 Flow Rate FiO2 11/01/17 14:00 103 11/01/17 13:05 102 123/70 (87) 94 11/01/17 13:01 100 117/71 11/01/17 12:35 104 111/60 (77) 95 11/01/17 12:05 104 111/60 (77) 95 11/01/17 12:00 98.7 106 16 111/60 (77) 94 11/01/17 12:00 106 11/01/17 12:00 70 11/01/17 11:50 110.0 105/57 (73) 94 11/01/17 11:34 92 11/01/17 11:34 91 70 11/01/17 10:00 93 11/01/17 09:40 94 11/01/17 08:47 115 132/61 11/01/17 08:00 70 11/01/17 08:00 106 11/01/17 08:00 99.5 106 17 137/60 (85) 92 11/01/17 07:37 92 70 11/01/17 06:00 112 11/01/17 04:40 92 70 11/01/17 04:24 104 129/81 11/01/17 04:00 97.8 112 19 122/62 (82) 91 11/01/17 04:00 112 11/01/17 04:00 60 11/01/17 02:00 97 11/01/17 01:04 95 60 11/01/17 00:42 96 15.00 100 11/01/17 00:00 60 11/01/17 00:00 97.7 98 24 118/72 (87) 95 11/01/17 00:00 98 10/31/17 22:52 94 60 10/31/17 22:26 85 106/60 10/31/17 22:00 86 10/31/17 20:45 114 122/61 10/31/17 20:00 60 10/31/17 20:00 114 10/31/17 20:00 98.0 114 18 126/66 (86) 95 10/31/17 19:40 95 60 10/31/17 18:00 111 10/31/17 17:16 130/72 10/31/17 16:50 98.2 101 16 124/68 96 10/31/17 16:34 97.7 109 19 120/65 95 10/31/17 16:27 96 120/65 10/31/17 16:04 97 75 10/31/17 16:00 98.2 109 18 119/66 (83) 94 10/31/17 16:00 109 10/31/17 16:00 60 10/31/17 15:35 98.1 109 19 109/65 94 10/31/17 15:19 98.1 108 21 109/63 95 I/O 10/31/17 10/31/17 10/31/17 11/01/17 11/01/17 11/01/17 07:00 15:00 23:00 07:00 15:00 23:00 Intake Total 450 ml 1539 ml 1408 ml 1825 ml Output Total 250 ml 380 ml 975 ml Balance 200 ml 1539 ml 1028 ml 850 ml Intake Oral 100 ml IV Total 350 ml 1090 ml 815 ml 1825 ml FFP 563 ml Platelets 409 ml Blood Product IV Normal Saline Flush 40 ml 30 ml Output Urine Total 250 ml 380 ml 975 ml # Bowel Movements 0 Result Diagram: 11/01/1782911/01/17829 Objective Remarks GENERAL: WBWN WM, On Vent, sedated SKIN: Warm and dry. HEAD: Normocephalic. EYES: No scleral icterus. No injection or drainage. NECK: Supple, trachea midline. No JVD or lymphadenopathy. CARDIOVASCULAR: Regular rate and rhythm without murmurs, gallops, or rubs. RESPIRATORY: Breath sounds equal bilaterally. No accessory muscle use. GASTROINTESTINAL: Abdomen soft, non-tender, nondistended. MUSCULOSKELETAL: No cyanosis, or edema. Cold left leg BACK: Nontender without obvious deformity. No CVA tenderness. A/P Assessment and Plan IMPRESSION: 1. Sepsis. 2. Chronic obstructive pulmonary disease, mild exacerbation. 3. Left basilar infiltrate. 4. Urinary tract infection 5. Encephalopathy. 6. Cold left leg. 7. Thrombocytopenia. 8. VDRF PLAN: Vent support PRVC-AC, rate 16, TV 500,PEEP8 ,IT 0.8 Sedation with Diprivan for comfort and Vent synchrony Cont Abx per ID Monitor Plt count DW pt's sister at BS. Dennis Johnson MD November 01, 2017 14:50
--- NOTE | 2017-11-01 16:15 | RADRPT ---
EXAM DATE: 11/01/2017 4:09 PM EDT AGE/SEX: 67 years / Male INDICATIONS: Patient with acute cholecystitis in need of cholecystostomy tube placement. CLINICAL DATA: This is the patient's initial encounter. Patient reports that signs and symptoms have been present for 4 - 6 days and indicates a pain score of Nonresponsive. MEDICAL/SURGICAL HISTORY: CADCOPDHiatal hernia Hiatal hernia repair COMPARISON: No prior [place] exams available for comparison. FLUORO TIME (min): 1.55 IMAGE SERIES: CONTRAST (cc): 5cc Omnipaque (iohexol) 350 DEVICE(S): 8 German Expel drainage catheter . . PROCEDURE: 1. Ultrasound guided puncture of the gallbladder. 2. Percutaneous cholangiogram. 3. Percutaneous cholecystostomy tube placement. 4. Conscious sedation with continuous EKG and oximetry monitoring. The risks, benefits and alternatives to the procedure were explained and verbal and written consent w as obtained. The site was prepped in sterile fashion. Full sterile technique was used, including ca p, mask, sterile gloves and gown and a large sterile sheet. Hand hygiene and 2% chlorhexidine and/or betadine/alcohol prep was utilized per protocol for cutaneous antisepsis. Sterile gel and sterile p robe cover were utilized for ultrasound guidance. The skin and subcutaneous tissues were infiltrated with local anesthetic solution. With ultrasound and fluoroscopic guidance the gallbladder was punctured with a micropuncture set and a 4 German dilator was placed. Injection of positive contrast demonstrates position within the gallb ladder. A 0.035 guidewire was placed within the gallbladder lumen and dilatation was performed to ac cept the prescribed catheter. Conscious sedation was performed with the prescribed dosages and duration as above in the presence of an independent trained radiology nurse to assist in the monitoring of the patient. EKG and oximetry remained stable throughout the procedure. The patient tolerated the procedure well and there were n o complications. The patient was sent to post anesthesia recovery in stable condition. CONCLUSION: 1. Uncomplicated percutaneous cholecystostomy as above. Electronically signed by: David Dixon MD 11/01/2017 4:14 PM EDT
[2017-11-01 18:03] LABS: % SATURATION IRON PROFILE 67.7 % (20-50); IRON (FE) 145 MCG/DL (65-175); TOTAL IRON BINDING CAPACITY 214 MCG/DL (250-450)
[2017-11-01 18:05] LABS: FERRITIN 248 NG/ML (26-388)
[2017-11-02] VITALS (19 sets, daily range): BP systolic 142–191; BP diastolic 72–92; PULSE 72–111; RESP 11–17; TEMP 97.9–99.2; O2SAT 92–100
[2017-11-02] MEDS: methylPREDNISolone SOD SUCC 40 MG/1 ML VIAL IV PUSH SCH ×5 (00:15→23:18)
[2017-11-02] MEDS: ESMOLOL DRIP INJ PREMIX 250 ML IV PRN ×5 (00:16→13:42)
[2017-11-02] MEDS: RESP: ALBUTEROL 2.5 MG/IPRATROPIUM 0.5 MG NEB (SCH) NEB ×7 (00:22→23:29)
[2017-11-02] MEDS: AMPICILLIN-SULBACTAM INJ 1,500 MG in SODIUM CHLORIDE 0.9% INJ 100 ML IV SCH ×3 (03:05→23:17)
[2017-11-02] MEDS: CHLORHEXIDINE GLUCONATE 2 % 1 PACK (2 CLOTHS) TOP SCH (04:00)
[2017-11-02] MEDS: PROPOFOL 1000 MG/100 ML INJ 100 ML IV PRN ×5 (04:38→21:30)
[2017-11-02] MEDS: SODIUM BICARBONATE 8.4% INJ 150 MEQ in DEXTROSE 5% IN WATE 1000ML INJ 1,000 ML IV SCH ×4 (04:42→19:33)
[2017-11-02 07:58] LABS: ALBUMIN 1.9 GM/DL (3.4-5.0); BICARBONATE 26.3 MEQ/L (21.0-32.0); CALCIUM 7.1 MG/DL (8.5-10.1); CREATININE 1.79 MG/DL (0.60-1.30); DIRECT BILIRUBIN ADULT 1.4 MG/DL (0.0-0.2); INDIRECT BILIRUBIN 0.6 MG/DL (0.0-0.8); TOTAL PROTEIN 5.7 GM/DL (6.4-8.2)
[2017-11-02] MEDS: CHLORHEXIDINE 0.12% (ORAL KIT) 15 ML CUP MT SCH ×2 (08:00→19:36)
[2017-11-02] MEDS: FAMOTIDINE 20 MG/2 ML VIAL IV PUSH SCH ×2 (08:34→19:34)
[2017-11-02] MEDS: SODIUM CHLORIDE 0.9% FLUSH 10 ML FLUSH IV FLUSH SCH ×2 (08:34→19:33)
[2017-11-02] MEDS: DOCUSATE SODIUM 50 MG/SENNA 8.6 MG TAB PO SCH ×2 (08:34→19:34)
[2017-11-02 09:01] LABS: CALCIUM-PROTEIN CORRECTED 7.8 MG/DL (8.5-10.1)
--- NOTE | 2017-11-02 11:44 | HHI.NPPN ---
Subjective History of Present Illness patient is a 67 year old male with ischemic L leg, PVD HTN, ARF Objective Data Data 11/02/17 11/03/17 19:00 07:00 Intake Total 351 ml Balance 351 ml IV Total 351 ml Vital Signs Date Time Temp Pulse Resp B/P (MAP) Pulse Ox O2 Delivery O2 Flow Rate FiO2 11/02/17 11:29 93 55 11/02/17 10:00 74 11/02/17 09:53 74 147/72 11/02/17 08:16 94 55 11/02/17 08:00 98.5 73 12 145/74 (97) 94 11/02/17 08:00 73 11/02/17 08:00 55 11/02/17 06:41 75 129/69 11/02/17 06:00 75 11/02/17 04:55 55 11/02/17 04:38 75 144/72 11/02/17 04:00 55 11/02/17 04:00 97.9 74 16 148/72 (97) 96 11/02/17 04:00 74 11/02/17 03:24 71 140/76 11/02/17 03:21 97 55 11/02/17 02:00 109 11/02/17 00:33 60 11/02/17 00:24 100 60 11/02/17 00:16 105 137/82 11/02/17 00:00 98.2 111 16 142/77 (98) 97 11/02/17 00:00 111 11/02/17 00:00 65 11/01/17 22:00 107 11/01/17 21:09 104 108/69 11/01/17 21:03 96 65 11/01/17 20:00 97.8 108 18 133/72 (92) 96 11/01/17 20:00 108 11/01/17 20:00 65 11/01/17 18:30 108 136/76 11/01/17 18:00 110 11/01/17 17:27 112 140/78 11/01/17 16:00 106 11/01/17 16:00 65 11/01/17 16:00 98.3 106 15 137/71 (93) 96 11/01/17 15:38 97 65 11/01/17 14:00 103 11/01/17 13:05 102 123/70 (87) 94 11/01/17 13:01 100 117/71 11/01/17 12:35 104 111/60 (77) 95 11/01/17 12:05 104 111/60 (77) 95 11/01/17 12:00 98.7 106 16 111/60 (77) 94 11/01/17 12:00 106 11/01/17 12:00 70 11/01/17 11:50 110.0 105/57 (73) 94 -: 11/01/17 0830 11/02/17 0646 Physical Exam General Appearance: Well Developed, Well Nourished Neck Neck Exam: Neck Supple Pulmonary Resp Exam: Clear Bilaterally, Breath Sounds Equal Gastrointestinal/Abdomen GI Exam: Soft, Non-Tender, Bowel Sounds Present Integumentary Skin Exam: Lesion(s) (toe ischemic) Extremeties Extremities Exam: Trace Edema Assessment/Plan Problem List: (1) Acute renal failure ICD Codes: N17.9 - Acute kidney failure, unspecified Plan: Patient has rhabdomyolysis cr declined dc bicarbonate by am CPK declined Follow urine myoglobin US increase echogenicity Follow BMP Avoid nephrotoxins Thrombocytopenia stable (2) Rhabdomyolysis ICD Codes: M62.82 - Rhabdomyolysis Plan: Follow CPK Alkalinize urine (3) Acidosis, metabolic ICD Codes: E87.2 - Acidosis Status: Resolved Plan: D5 with 3 A of bicarbonate (4) CKD (chronic kidney disease) stage 4, GFR 15-29 ml/min ICD Codes: N18.4 - Chronic kidney disease, stage 4 (severe) Plan: GFR is low (5) Peripheral vascular disease ICD Codes: I73.9 - Peripheral vascular disease, unspecified Plan: Vascular surgery follow-up (6) Ischemia of left lower extremity ICD Codes: I99.8 - Other disorder of circulatory system Status: Acute Plan: Patient is on anticoagulation (7) Pneumonia ICD Codes: J18.9 - Pneumonia, unspecified organism Status: Acute Plan: ID following on ampicillin/sulbactam and azithromycin (8) Sepsis ICD Codes: A41.9 - Sepsis, unspecified organism Status: Acute Plan: As above he has E. coli in the blood and enterococcus in the urine Problem Qualifiers (1) Acute renal failure: Qualified Codes: N17.0 - Acute kidney failure with tubular necrosis (2) Pneumonia: Qualified Codes: J18.1 - Lobar pneumonia, unspecified organism (3) Sepsis: Qualified Codes: A41.9 - Sepsis, unspecified organism Alexy Lemons MD November 02, 2017 11:44
--- NOTE | 2017-11-02 11:47 | HHI.CCPN ---
Subjective Remarks/Hospital Course 67-year-old male presents to the emergency department via EMS for evaluation of shortness of breath and pain and numbness to the left leg. Patient believes that he is shortness of breath is related to the pain in his leg. He cannot feel his leg from his groin down. He denies any history of the same. He does report history of COPD. He denies any known fevers or chills. He denies chest pain. Patient received 1 L normal saline bolus via EMS. Patient denies any history of bleeding or blood clots. No recent surgery or travel. No hemoptysis. No history of DVT/PE. He denies leg edema. Patient states the pain is 10/10 to the left leg. No exacerbating or alleviating factors. Moderate severity. 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 The right inflow is heavily diseased as well. The patient was evaluated by vascular surgeon electron beam welder and was immediately started on heparin drip. SUBJ 10/29: Remains critically ill, encephalopathy. 4 out of 4 bottles positive for GNR. I will change Rocephin to Zosyn renally dosed to cover for Pseudomonas also. Continue azithromycin. Creatinine still elevated but slightly improved. WBC count slightly increased 17.2 now with 24% bands. Source of GNR sepsis could be either UTI or pneumonia. Will consult ID as well. Remains on IV heparin for acute left limb ischemia 10/30: platelets falling >50% again today. Cr still rising, but could be ATN/ contrast nephropathy. blood cultures growing e. coli by PCR, full speciation to follow. urine culture pending. discussed case with Dr. Lopez, will stop heparin , start argatroban and send HIT/CHARLEEN. denies complaints for me, but does have objective tenderness on palpation, RUQ. 10/31: Emergently intubated today a.m. by Dr. Puckett for worsening mental status, encephalopathy and worsening respiratory failure. Prior to intubation Dr. Puckett ' exam revealed right upper quadrant tenderness. Ultrasound of the gallbladder yesterday showed gallstones. Overnight Argatroban was supratherapeutic and was held, platelet count also dropped to 30,000, HIT screen is pending. Postintubation bilateral pupils are reactive but unequal. Will repeat CT of the head, CT abdomen pelvis. BUN 49/Creat 2.7, leukocytosis persisting 11/01: no improvements. ct abd/pelvis with evidence of possible choledocholithiasis. perc doug tube planned for this AM. on esmolol infusion for afib RVR. fio2 increased to 70%. 11/02: Sodium bicarbonate infusion continued per nephrology in the setting of rhabdomyolysis serial creatinine kinase pending. Cholecystostomy drain placement 100 cc overnight. Continued thrombocytopenia, CBC, serotonin release assay pending. Plan for reinitiation of heparin awaiting GI consultation for possible invasive procedures prior to restarting heparin. Patient sinus rhythm with occasional PAC's. Objective Vital Signs Date Time Temp Pulse Resp B/P (MAP) Pulse Ox O2 Delivery O2 Flow Rate FiO2 11/02/17 09:53 74 147/72 11/02/17 08:16 94 55 11/02/17 08:00 98.5 12 11/01/17 00:42 15.00 10/30/17 19:30 Nasal Cannula Intake and Output 11/02/17 11/02/17 11/03/17 08:00 16:00 00:00 Intake Total 2160 ml 351 ml Output Total 825 ml Balance 1335 ml 351 ml Result Diagram: 11/01/17 0830 11/02/17 0646 Other Results Microbiology Date/Time Source Procedure Growth Status 10/31/17 10:40 Sputum Endotracheal Gram Stain - Final Complete 10/31/17 10:40 Sputum Endotracheal Sputum Culture - Final HEAVY GROWTH NORMAL RESPIRATORY KAREEM Complete Imaging Last Impressions Percutaneous Cholangiogram 11/01/17 0000 Signed Impressions: CONCLUSION: 1. Uncomplicated percutaneous cholecystostomy as above. Abdomen/Pelvis CT 11/01/17 0000 Signed Impressions: CONCLUSION: 1. Gallstones. There do appear to be areas of increased density within the com mon bile duct concerning for choledocholithiasis. 2. 4 mm nonobstructing left renal stone. 3. Sigmoid colon diverticula. 4. Bibasilar areas of consolidation or atelectasis being worse on the left wit h mild bilateral pleural effusions. Renal Ultrasound 10/31/17 0000 Signed Impressions: CONCLUSION: 1. No hydronephrosis. 2. Increased cortical echogenicity consistent with medical renal disease. Head Magnetic Resonance Angiography 10/31/17 0000 Signed Impressions: CONCLUSION: 1. Unremarkable MRA of the brain. Head CT 5/24/18 0000 Signed Impressions: CONCLUSION: 1. Negative CT Head non contrast. 2. No evidence of acute infarct, hemorrhage, mass or edema. Chest X-Ray 10/31/17 Signed Impressions: CONCLUSION: Satisfactory position of endotracheal and nasogastric tubes. Increasing airspace disease and bilateral effusions. Brain MRI 10/31/17 Signed Impressions: CONCLUSION: 1. Senescent changes with minimal periventricular ischemic white matter demyel ination. 2. No acute abnormality. Specifically, no acute infarction, mass or hemorrhage . Gall Bladder Ultrasound 10/30/17 Signed Impressions: CONCLUSION: 1. Fatty infiltration of the liver. 2. Multiple stones in the gallbladder. No biliary tract obstruction. Extremity Arterial Study 10/28/17 Signed Impressions: CONCLUSION: 1. Abnormal ABIs, left greater than right. The left DAVID is significantly dimin ished at 0.14. Aorta w/Runoff CTA 10/28/17 Signed Impressions: Service Date/Time: Saturday, October 28, 2017 21:50 - CONCLUSION: 1. Acute occlusion of the left inflow with concern for short segment occlusion involving the distal right inflow. This raises concern for an embolic event. 2. Right lower extremity shows scattered disease throughout the common femoral artery, SFA and [id number] popliteal artery with three-vessel runoff to the foot. 3. Left lower extremity with reconstitution of the common femoral artery with diseased out flow and two vessel runoff to the foot as detailed above. 4. 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 5. Hepatic steatosis. 6. Cholelithiasis. Juanjose Mckeon Jr., MD Last 24 hours Impressions Chest X-Ray 10/28/172010 Signed Impressions: Service Date/Time: Saturday, October 28, 2017 20:20 - CONCLUSION: Left lower lobe infiltrate. Mild cardiomegaly. Juanjose Mckeno Jr., MD Objective Remarks GENERAL: This is a well-developed well-nourished middle-aged male, currently intubated, sedated, critically ill SKIN: Warm and dry. HEAD: Normocephalic. ENT: No scleral icterus. No injection or drainage. Pupils are now equal at 3mm, reactive. Orotracheally intubated NECK: Supple, trachea midline. No JVD. CARDIOVASCULAR: Tachycardic rate heart rate in 110s now. on esmolol infusion RESPIRATORY: Intubated. PRVC/AC. Air entry equal no significant wheezes. fio2 70%. GASTROINTESTINAL: Abdomen soft, mildly distended. no guarding. MUSCULOSKELETAL: No cyanosis, or edema. Left foot cool to touch. Bilateral DP with Doppler NEURO EXAM: Intubated, RASS -2. Withdraws to pain. does not follow commands. A/P Assessment and Plan Assessment: 67yM with limb ischemia, severe sepsis and associated multiorgan failure including shock liver, acute kidney injury. remains critically ill and organ failure worsening. Now with acute respiratory failure and worsening encephalopathy. HIT negative. holding anticoagulation. plan for percutaneous cholecystostomy tube today. platelets 70k today. will need to restart heparin post procedure. GI consulted, may need ERCP as well. in terms of hypoxic respiratory failure, likely ARDS at this point. ASSESSMENT/PLAN: NEURO: Acute metabolic encephalopathy -Intubated for airway protection and worsening respiratory failure -Propofol for sedation and vent synchrony -No sedation vacation until metabolic encephalopathy and sepsis improved -10/31 CT of the head- negative RESP: Acute hypoxemic respiratory failure COPD exacerbation Left lower lobe pneumonia ARDS -Emergently intubated and placed on mechanical ventilation 10/31/2017 -PRVC/AC, DuoNeb scheduled and as needed, ventilator bundle, head of bed elevation to 30 -Steroids IV. Pulmonary consultation: Dr. Johnson following - CT mild B/L pleural effusion -Continue Zosyn. -Follow-up sputum and repeat blood cultures, urine culture CVS: Acute on chronic left limb ischemia Afib with RVR -CTA showed severe aorto-iliac occlusive disease with left iliac thrombosis -Significant calcifications and peripheral vascular disease -2D echo: EF 50%, no significant valvular lesions. left sided pleural effusion -Argatroban started 10/30, placed on hold due to worsening mental status, supratherapeutic -HIT screen negative. -Esmolol gtt-transition to metoprolol 25 mg twice daily -EKG normal sinus rhythm GI Acute hepatic dysfunction Hyperbilirubinemia Transaminitis Acute Choledocholithiasis -Trend LFTs, gallbladder ultrasound showed multiple gallstones -Most likely secondary to severe sepsis. -Repeat CT abdomen/pelvis 10/31: c/w choledocholithiasis - plan for perc doug tube today - GI consult. may need ERCP as well - continue NPO Acute kidney injury Acute metabolic acidosis -worsening today on BMP. -Creatinine 2.7 worsening -nephrology consulted -Unknown baseline -Hydration, Strict I's and O's -Likely ATN from sepsis and may be component of contrast nephropathy. ID E COLI bacteremia/severe sepsis Enterococcus in the urine: possible colonization vs. UTI. Acute Choledocholithiasis -Source of bacteremia could be pneumonia or UTI or cholecystitis -Zosyn - unclear if enterococcus is clinical uti or colonization. will ask ID's advice before treating. -Follow-up repeat blood urine and sputum culture -ID following -Gallbladder u/s, shows gallstones HEME: acute thrombocytopenia: improving. -Most likely etiology is sepsis with consumption - HIT negative. Obtain serotonin release assay today - S/P doug tube today. will need to restart heparin once procedures complete. Follow-up GI-no invasive procedures planned we will restart heparin -Hold aspirin DVT GI prophylaxis -Vickey's and SCDs -anticoagulation on hold -Pepcid Dispo: needs to remain in ICU. all organ systems worsening, very critical with prognosis guarded. Critical Care: The total critical care time was 35 minutes. Time to perform other separately billable procedures was not included in the critical care time. Patient remains critically ill with septic shock, multiorgan failure, choledocholithiasis, near-critical limb ischemia. Physician Skylar Lang MD November 02, 2017 11:47
[2017-11-02] MEDS ORDERED: CALCIUM GLUCONATE INJ 2 GM in DEXTROSE 5% IN WATER 100ML INJ 100 ML IV ONE ×2 (12:00)
--- NOTE | 2017-11-02 12:29 | HHI.PR ---
Subjective Remarks 67 YOWM with COPD,Sepsis, ischemia of leg Developed RF, intubated Plt decreased sedated Weaned to CPAP On Esmolol Hemoptysis improved Objective Vital Signs Vital Signs Date Time Temp Pulse Resp B/P (MAP) Pulse Ox O2 Delivery O2 Flow Rate FiO2 11/02/17 11:29 93 55 11/02/17 10:00 74 11/02/17 09:53 74 147/72 11/02/17 08:16 94 55 11/02/17 08:00 98.5 73 12 145/74 (97) 94 11/02/17 08:00 73 11/02/17 08:00 55 11/02/17 06:41 75 129/69 11/02/17 06:00 75 11/02/17 04:55 55 11/02/17 04:38 75 144/72 11/02/17 04:00 55 11/02/17 04:00 97.9 74 16 148/72 (97) 96 11/02/17 04:00 74 11/02/17 03:24 71 140/76 11/02/17 03:21 97 55 11/02/17 02:00 109 11/02/17 00:33 60 11/02/17 00:24 100 60 11/02/17 00:16 105 137/82 11/02/17 00:00 98.2 111 16 142/77 (98) 97 11/02/17 00:00 111 11/02/17 00:00 65 11/01/17 22:00 107 11/01/17 21:09 104 108/69 11/01/17 21:03 96 65 11/01/17 20:00 97.8 108 18 133/72 (92) 96 11/01/17 20:00 108 11/01/17 20:00 65 11/01/17 18:30 108 136/76 11/01/17 18:00 110 11/01/17 17:27 112 140/78 11/01/17 16:00 106 11/01/17 16:00 65 11/01/17 16:00 98.3 106 15 137/71 (93) 96 11/01/17 15:38 97 65 11/01/17 14:00 103 11/01/17 13:05 102 123/70 (87) 94 11/01/17 13:01 100 117/71 11/01/17 12:35 104 111/60 (77) 95 I/O 11/01/17 11/01/17 11/01/17 11/02/17 11/02/17 11/02/17 07:00 15:00 23:00 07:00 15:00 23:00 Intake Total 1825 ml 350 ml 2260 ml 351 ml Output Total 975 ml 933 ml 825 ml Balance 850 ml -583 ml 1435 ml 351 ml IV Total 1825 ml 350 ml 2200 ml 351 ml Other 60 ml Output Urine Total 975 ml 850 ml 725 ml Drainage Total 83 ml 100 ml # Bowel Movements 0 Result Diagram: 11/01/17 0830 11/02/17 0646 Objective Remarks GENERAL: WBWN WM, On Vent, sedated SKIN: Warm and dry. HEAD: Normocephalic. EYES: No scleral icterus. No injection or drainage. NECK: Supple, trachea midline. No JVD or lymphadenopathy. CARDIOVASCULAR: Regular rate and rhythm without murmurs, gallops, or rubs. RESPIRATORY: Breath sounds equal bilaterally. No accessory muscle use. GASTROINTESTINAL: Abdomen soft, non-tender, nondistended. MUSCULOSKELETAL: No cyanosis, or edema. Cold left leg BACK: Nontender without obvious deformity. No CVA tenderness. A/P Assessment and Plan IMPRESSION: 1. Sepsis. 2. Chronic obstructive pulmonary disease, mild exacerbation. 3. Left basilar infiltrate. 4. Urinary tract infection 5. Encephalopathy. 6. Cold left leg. 7. Thrombocytopenia. 8. VDRF PLAN: Vent support Cont CPAP as tolrerated Sedation with Diprivan for comfort and Vent synchrony Cont Abx per ID Monitor Plt count Bicarb drip. DW pt's sister at BS. Dennis Johnson MD November 02, 2017 12:29
[2017-11-02 13:43] LABS: AUTOMATED NEUTROPHIL # 7.8 TH/MM3 (1.8-7.7); BASOPHIL % 0.1 % (0.0-2.0); HEMATOCRIT 31.9 % (39.0-51.0); HEMOGLOBIN 11.2 GM/DL (13.0-17.0); LYMPH % 6.1 % (9.0-44.0); LYMPHOCYTE # 0.6 TH/MM3 (1.0-4.8); MEAN CELL VOLUME 89.4 FL (80.0-100.0); MEAN CORPUSCULAR HEMOGLOBIN 31.5 PG (27.0-34.0); MEAN CORPUSCULAR HGB CONC 35.2 % (32.0-36.0); MEAN PLATELET VOLUME 10.7 FL (7.0-11.0); MONO % 7.8 % (0.0-8.0); MONOCYTE # 0.7 TH/MM3 (0-0.9); PLATELET COUNT 125 TH/MM3 (150-450); RED BLOOD COUNT 3.57 MIL/MM3 (4.50-5.90); RED CELL DISTRIBUTION WIDTH 12.9 % (11.6-17.2); WHITE BLOOD COUNT 9.1 TH/MM3 (4.0-11.0)
[2017-11-02] MEDS: METOPROLOL TARTRATE 25 MG TAB PO SCH ×2 (13:48→19:34)
[2017-11-02] MEDS ORDERED: hydrALAZINE HCL 20 MG/ML VIAL IV PUSH PRN (14:00)
[2017-11-02 14:16] LABS: BANDS 5 % (0-6); CORRECTED NUCLEATED RBC 2 /100 WBC (0-0); DOHLE BODIES PRESENT (NONE SEEN); LYMPHOCYTES 3 % (9-44); METAMYELOCYTES 3 % (0-1); MONOCYTES 1 % (0-8); MYELOCYTES 1 % (0-0); NEUTROPHIL # MANUAL DIFF 8.7 TH/MM3 (1.8-7.7); NUCLEATED RED BLOOD CELL 2 (0-0); POLYS (SEG NEUTROPHILS) 87 % (16-70); TOXIC GRANULATION 1+ (NORMAL)
[2017-11-02] MEDS ORDERED: LABETALOL HCL 100 MG/20 ML VIAL IV PUSH ONE (15:15)
--- NOTE | 2017-11-02 16:32 | HHI.IDPN ---
Note Infectious Disease Note ID COVERAGE Notes reviewed D/W RN Sedated on the vent - on CPAP since 9am BP running high Temps ok Has GB tube placed yesterday Tbil decreasing BC with pansensitie E coli UC with Enterococcus Bile C/S mixed GNR and GPC Sputum normal terrell Repeat BC negative 67-year-old white male who presented to the Emergency Department with shortness of breath and left leg pain. In the emergency Department his heart rate was 102 and temperature was 100.7. White blood cell count was elevated at 13.3 and lactic acid level was 7.4. Chest x-ray showed left lung infiltrate. Urinalysis showed 28 white cells with white blood cell clumps. PAST MEDICAL HISTORY: COPD, coronary artery disease, hernia repair. ALLERGIES: NO KNOWN DRUG ALLERGIES. Current Medications Medications (Trade) Dose Ordered Sig/Olesya Route Start Time Stop Time Status Last Admin (NS Flush) 2 ml UNSCH PRN IV FLUSH 10/28/17 22:15 (NS Flush) 2 ml BID IV FLUSH 10/29/17 09:00 11/02/17 08:34 (Tylenol) 650 mg Q6H PRN PO 10/28/17 22:15 (Dilaudid Pf Inj) 1 mg Q4H PRN IV 10/28/17 22:30 10/30/17 17:59 (Pepcid Inj) 10 mg Q12HR IV PUSH 10/29/17 09:00 11/02/17 08:34 (Zofran Inj) 4 mg Q6H PRN IV PUSH 10/28/17 22:15 (Restoril) 15 mg HS PRN PO 10/28/17 22:15 (Duoneb Neb) 1 ampule Q2HR NEB PRN INH 10/28/17 22:15 10/31/17 05:34 ([facility]) 1 Q361D XX 10/28/17 22:15 10/28/17 22:15 (Chlorhexidine 2% Cloth) 3 pack Taper DAILY@04 TOP 10/29/17 04:00 10/25/18 03:59 11/02/17 04:00 (Chlorhexidine 2% Cloth) 3 pack UNSCH PRN TOP 10/28/17 22:15 (Elvira-Colace) 1 tab BID PO 10/29/17 09:00 11/02/17 08:34 (Milk Of Magnesia Liq) 30 ml Q12H PRN PO 10/28/17 22:15 (Senokot) 17.2 mg Q12H PRN PO 10/28/17 22:15 (Dulcolax Supp) 10 mg DAILY PRN RECTAL 10/28/17 22:15 (Lactulose Liq) 30 ml DAILY PRN PO 10/28/17 22:15 (SoluMEDROL INJ) 40 mg Q6HR IV PUSH 10/29/17 00:00 11/02/17 11:38 (Cardizem Cd) 240 mg DAILY PO 10/29/17 09:00 Future Hold 10/30/17 09:02 (Aspirin Chew) 81 mg DAILY CHEW 10/29/17 11:45 Future Hold 10/30/17 09:02 Esmolol HCl/ Sodium Chloride 250 ml @ 26.7 mls/hr TITRATE PRN IV 10/31/17 01:45 11/02/17 13:42 (Brevibloc Bolus Inj) 45 mg BOLUS PRN IV PUSH 10/31/17 01:45 10/31/17 02:11 Phenylephrine HCl 40 mg/Dextrose 500 ml @ 30 mls/hr TITRATE PRN IV 10/31/17 06:15 10/31/17 06:47 (Brethine Inj) 1 mg UNSCH PRN SQ 10/31/17 06:15 Propofol 100 ml @ 2.73 mls/hr TITRATE PRN IV 10/31/17 07:00 11/02/17 13:43 (Peridex 0.12% Liq) 15 ml BID@08,20 MT 10/31/17 08:00 11/02/17 08:00 Sodium Bicarbonate 150 meq/Dextrose 1,150 ml @ 83 mls/hr [id number] IV 10/31/17 17:00 11/03/17 07:00 11/02/17 04:42 Ampicillin Sodium/ Sulbactam Sodium 1500 mg/Sodium Chloride 100 ml @ 200 mls/hr Q12H IV 11/01/17 15:00 11/02/17 13:48 (Duoneb Neb) 1 ampule Q4HR NEB NEB 11/01/17 12:00 11/02/17 14:51 (Apresoline Inj) 20 mg Q4H PRN IV PUSH 11/02/17 14:00 (Lopressor) 25 mg Q12HR PO 11/02/17 14:00 11/02/17 13:48 SOCIAL HISTORY: No tobacco. The patient quit smoking in 07/2017. No alcohol and no illicit drugs. The patient takes care of his elderly father at home who has dementia. FAMILY HISTORY: Noncontributory. OBJECTIVE: Vital Signs Date Time Temp Pulse Resp B/P (MAP) Pulse Ox O2 Delivery O2 Flow Rate FiO2 11/02/17 16:00 74 11/02/17 16:00 70 11/02/17 14:51 92 55 11/02/17 14:00 77 11/02/17 13:42 77 172/82 11/02/17 12:00 76 11/02/17 12:00 99.2 76 15 92 11/02/17 12:00 55 11/02/17 11:29 93 55 11/02/17 10:00 74 11/02/17 09:53 74 147/72 11/02/17 08:16 94 55 11/02/17 08:00 98.5 73 12 145/74 (97) 94 11/02/17 08:00 73 11/02/17 08:00 55 11/02/17 06:41 75 129/69 11/02/17 06:00 75 11/02/17 04:55 55 11/02/17 04:38 75 144/72 11/02/17 04:00 55 11/02/17 04:00 97.9 74 16 148/72 (97) 96 11/02/17 04:00 74 11/02/17 03:24 71 140/76 11/02/17 03:21 97 55 11/02/17 02:00 109 11/02/17 00:33 60 11/02/17 00:24 100 60 11/02/17 00:16 105 137/82 11/02/17 00:00 98.2 111 16 142/77 (98) 97 11/02/17 00:00 111 11/02/17 00:00 65 11/01/17 22:00 107 11/01/17 21:09 104 108/69 11/01/17 21:03 96 65 11/01/17 20:00 97.8 108 18 133/72 (92) 96 11/01/17 20:00 108 11/01/17 20:00 65 11/01/17 18:30 108 136/76 11/01/17 18:00 110 11/01/17 17:27 112 140/78 Vital Signs Date Time Temp Pulse Resp B/P (MAP) Pulse Ox O2 Delivery O2 Flow Rate FiO2 11/01/17 13:01 100 117/71 11/01/17 12:00 98.7 106 16 111/60 (77) 94 11/01/17 12:00 106 11/01/17 12:00 70 11/01/17 11:34 92 11/01/17 11:34 91 70 11/01/17 10:00 93 11/01/17 09:40 94 11/01/17 08:47 115 132/61 11/01/17 08:00 70 11/01/17 08:00 106 11/01/17 08:00 99.5 106 17 137/60 (85) 92 11/01/17 07:37 92 70 11/01/17 06:00 112 11/01/17 04:40 92 70 11/01/17 04:24 104 129/81 11/01/17 04:00 97.8 112 19 122/62 (82) 91 11/01/17 04:00 112 11/01/17 04:00 60 11/01/17 02:00 97 11/01/17 01:04 95 60 11/01/17 00:42 96 15.00 100 11/01/17 00:00 60 11/01/17 00:00 97.7 98 24 118/72 (87) 95 11/01/17 00:00 98 10/31/17 22:52 94 60 10/31/17 22:26 85 106/60 10/31/17 22:00 86 10/31/17 20:45 114 122/61 10/31/17 20:00 60 10/31/17 20:00 114 10/31/17 20:00 98.0 114 18 126/66 (86) 95 10/31/17 19:40 95 60 10/31/17 18:00 111 10/31/17 17:16 130/72 10/31/17 16:50 98.2 101 16 124/68 96 10/31/17 16:34 97.7 109 19 120/65 95 10/31/17 16:27 96 120/65 10/31/17 16:04 97 75 10/31/17 16:00 98.2 109 18 119/66 (83) 94 10/31/17 16:00 109 10/31/17 16:00 60 10/31/17 15:35 98.1 109 19 109/65 94 10/31/17 15:19 98.1 108 21 109/63 95 10/31/17 14:00 109 Laboratory Tests Test 11/01/17 08:30 11/02/17 13:28 White Blood Count 9.4 TH/MM3 9.1 TH/MM3 Red Blood Count 3.33 MIL/MM3 3.57 MIL/MM3 Hemoglobin 10.4 GM/DL 11.2 GM/DL Hematocrit 30.1 % 31.9 % Mean Corpuscular Volume 90.4 FL 89.4 FL Mean Corpuscular Hemoglobin 31.2 PG 31.5 PG Mean Corpuscular Hemoglobin Concent 34.6 % 35.2 % Red Cell Distribution Width 13.3 % 12.9 % Platelet Count 77 TH/MM3 125 TH/MM3 Mean Platelet Volume 10.3 FL 10.7 FL Neutrophils (%) (Auto) 86.0 % Lymphocytes (%) (Auto) 6.1 % Monocytes (%) (Auto) 7.8 % Eosinophils (%) (Auto) 0.0 % Basophils (%) (Auto) 0.1 % Neutrophils # (Auto) 7.8 TH/MM3 Lymphocytes # (Auto) 0.6 TH/MM3 Monocytes # (Auto) 0.7 TH/MM3 Eosinophils # (Auto) 0.0 TH/MM3 Basophils # (Auto) 0.0 TH/MM3 CBC Comment AUTO DIFF Differential Total Cells Counted 100 Neutrophils % (Manual) 87 % Band Neutrophils % 5 % Lymphocytes % 3 % Monocytes % 1 % Neutrophils # (Manual) 8.7 TH/MM3 Metamyelocytes 3 % Myelocytes 1 % Nucleated Red Blood Cells 2 /100 WBC Differential Comment FINAL DIFF MANUAL Atypical Lymphocytes % Toxic Granulation 1+ Dohle Bodies PRESENT Platelet Estimate LOW Platelet Morphology Comment NORMAL Basophilic Stippling FAINT Laboratory Tests Test 11/01/17 08:30 11/01/17 17:20 11/02/17 06:46 Blood Urea Nitrogen 63 MG/DL 55 MG/DL Creatinine 2.01 MG/DL 1.79 MG/DL Random Glucose 158 MG/DL 124 MG/DL Total Protein 5.5 GM/DL 5.7 GM/DL Albumin 1.9 GM/DL 1.9 GM/DL Calcium Level 7.1 MG/DL 7.1 MG/DL Phosphorus Level 2.9 MG/DL Alkaline Phosphatase 67 U/L 67 U/L Aspartate Amino Transf (AST/SGOT) 111 U/L 83 U/L Alanine Aminotransferase (ALT/SGPT) 81 U/L 78 U/L Total Bilirubin 2.2 MG/DL 2.0 MG/DL Sodium Level 143 MEQ/L 144 MEQ/L Potassium Level 3.6 MEQ/L 4.3 MEQ/L Chloride Level 110 MEQ/L 107 MEQ/L Carbon Dioxide Level 22.0 MEQ/L 26.3 MEQ/L Anion Gap 11 MEQ/L 11 MEQ/L Estimat Glomerular Filtration Rate 33 ML/MIN 38 ML/MIN Lactic Acid Level 1.4 mmol/L Protein Corrected Calcium 7.9 MG/DL 7.8 MG/DL Total Creatine Kinase 2991 U/L 2074 U/L Creatine Kinase MB 4.7 NG/ML 1.4 NG/ML Creatine Kinase MB % 0.2 % 0.1 % Iron Level 145 MCG/DL Total Iron Binding Capacity 214 MCG/DL Percent Iron Saturation 67.7 % Ferritin 248 NG/ML Ammonia 32 MCMOL/L Amylase Level 47 U/L Lipase 126 U/L Tumor Marker Alpha Fetoprotein 6.9 NG/ML Direct Bilirubin 1.4 MG/DL Indirect Bilirubin 0.6 MG/DL Microbiology Date/Time Source Procedure Growth Status 10/30/17 20:38 Blood Peripheral Aerobic Blood Culture - Preliminary NO GROWTH IN 3 DAYS Resulted 10/30/17 20:38 Blood Peripheral Anaerobic Blood Culture - Preliminary NO GROWTH IN 3 DAYS Resulted 10/30/17 20:33 Blood Peripheral Aerobic Blood Culture - Preliminary NO GROWTH IN 3 DAYS Resulted 10/30/17 20:33 Blood Peripheral Anaerobic Blood Culture - Preliminary NO GROWTH IN 3 DAYS Resulted 11/01/17 11:05 Fluid Other Gram Stain - Final Resulted 11/01/17 11:05 Body Fluid Culture - Preliminary Gram Positive Cocci Resulted 10/31/17 10:40 Sputum Endotracheal Gram Stain - Final Complete 10/31/17 10:40 Sputum Endotracheal Sputum Culture - Final HEAVY GROWTH NORMAL RESPIRATORY TERRELL Complete Microbiology Date/Time Source Procedure Growth Status 10/30/17 20:38 Blood Peripheral Aerobic Blood Culture - Preliminary NO GROWTH IN 1 DAY Resulted 10/30/17 20:38 Blood Peripheral Anaerobic Blood Culture - Preliminary NO GROWTH IN 1 DAY Resulted 10/30/17 20:33 Blood Peripheral Aerobic Blood Culture - Preliminary NO GROWTH IN 1 DAY Resulted 10/30/17 20:33 Blood Peripheral Anaerobic Blood Culture - Preliminary NO GROWTH IN 1 DAY Resulted 10/28/17 20:20 Blood Peripheral Aerobic Blood Culture - Final Escherichia Coli Complete 10/28/17 20:20 Anaerobic Blood Culture - Final Escherichia Coli Complete 10/28/17 20:15 Blood Peripheral Aerobic Blood Culture - Final Escherichia Coli Complete 10/28/17 20:15 Anaerobic Blood Culture - Final Escherichia Coli Complete 10/31/17 10:40 Sputum Endotracheal Gram Stain Pending Received 10/31/17 10:40 Sputum Endotracheal Sputum Culture Pending Received 10/29/17 00:00 Urine Catheterized Urine Urine Culture - Final Enterococcus Faecalis Complete PHYSICAL EXAMINATION: GENERAL: Sedated on the vent, on CPAP, NAD. HEENT: Head atraumatic. Pupils reactive to light. No icterus. Oropharynx with slightly dry mucosa. No visible lesions. ET in place NECK: Supple without adenopathy. No swelling. LUNGS: Decreased clear breath sounds. HEART: Regular rate and rhythm. Distant S1 and S2. No audible murmurs. ABDOMEN: Obese, distended. Cholecystostomy tube in place. Biliary drainage. EXTREMITIES: No clubbing or cyanosis or edema. Left foot is currently warm. Not appearing dusky today. Doppler pulses obtained. SKIN: No diffuse rash. NEUROLOGIC: No gross focal finding. PSYCHIATRIC: Calm and cooperative. IMPRESSION: Severe sepsis due to E. coli very likely secondary to acute cholecystitis, cholangitis - S/P septic shock Pneumonia. Bilateral airspace disease on chest x-ray. Leukocytosis secondary to infection. WBC improved. Acute kidney disease likely resulting from sepsis. Renal function remains poor. Respiratory failure RECOMMENDATIONS: Continue ampicillin/sulbactam. Adequate coverage for E. coli and enterococcus. - adjust dose as creatinine improves Follow biliary fluid. Monitor renal function. Monitor progress. D/W RN Spoke with ArnieShasta Hartmann MD November 02, 2017 16:32
[2017-11-02] MEDS ORDERED: cloNIDine HCL 0.1 MG TAB PO ONE (17:00)
[2017-11-02] MEDS: hydrALAZINE HCL 10 MG TAB PO SCH ×2 (17:39→21:29)
--- NOTE | 2017-11-02 18:36 | HHI.GIFU ---
Subjective Remarks Intubated but appears to be comfortable in bed Objective Vitals I&O Vital Signs Date Time Temp Pulse Resp B/P (MAP) Pulse Ox O2 Delivery O2 Flow Rate FiO2 11/02/17 16:00 98.8 75 11 174/83 (113) 93 11/02/17 16:00 74 11/02/17 16:00 70 11/02/17 14:51 92 55 11/02/17 14:00 77 11/02/17 13:42 77 172/82 11/02/17 12:00 76 11/02/17 12:00 99.2 76 15 92 11/02/17 12:00 55 11/02/17 11:29 93 55 11/02/17 10:00 74 11/02/17 09:53 74 147/72 11/02/17 08:16 94 55 11/02/17 08:00 98.5 73 12 145/74 (97) 94 11/02/17 08:00 73 11/02/17 08:00 55 11/02/17 06:41 75 129/69 11/02/17 06:00 75 11/02/17 04:55 55 11/02/17 04:38 75 144/72 11/02/17 04:00 55 11/02/17 04:00 97.9 74 16 148/72 (97) 96 11/02/17 04:00 74 11/02/17 03:24 71 140/76 11/02/17 03:21 97 55 11/02/17 02:00 109 11/02/17 00:33 60 11/02/17 00:24 100 60 11/02/17 00:16 105 137/82 11/02/17 00:00 98.2 111 16 142/77 (98) 97 11/02/17 00:00 111 11/02/17 00:00 65 11/01/17 22:00 107 11/01/17 21:09 104 108/69 11/01/17 21:03 96 65 11/01/17 20:00 97.8 108 18 133/72 (92) 96 11/01/17 20:00 108 11/01/17 20:00 65 I/O 11/01/17 11/01/17 11/01/17 11/02/17 11/02/17 11/02/17 07:00 15:00 23:00 07:00 15:00 23:00 Intake Total 1825 ml 350 ml 2260 ml 832 ml 409 ml Output Total 975 ml 933 ml 825 ml Balance 850 ml -583 ml 1435 ml 832 ml 409 ml IV Total 1825 ml 350 ml 2200 ml 832 ml 409 ml Other 60 ml Output Urine Total 975 ml 850 ml 725 ml Drainage Total 83 ml 100 ml # Bowel Movements 0 Laboratory Laboratory Tests Test 11/02/17 06:46 11/02/17 13:28 Blood Urea Nitrogen 55 Creatinine 1.79 Random Glucose 124 Total Protein 5.7 Albumin 1.9 Calcium Level 7.1 Alkaline Phosphatase 67 Aspartate Amino Transf (AST/SGOT) 83 Alanine Aminotransferase (ALT/SGPT) 78 Total Bilirubin 2.0 Direct Bilirubin 1.4 Sodium Level 144 Potassium Level 4.3 Chloride Level 107 Carbon Dioxide Level 26.3 Anion Gap 11 Estimat Glomerular Filtration Rate 38 Protein Corrected Calcium 7.8 Indirect Bilirubin 0.6 Total Creatine Kinase 2074 Creatine Kinase MB 1.4 Creatine Kinase MB % 0.1 White Blood Count 9.1 Red Blood Count 3.57 Hemoglobin 11.2 Hematocrit 31.9 Mean Corpuscular Volume 89.4 Mean Corpuscular Hemoglobin 31.5 Mean Corpuscular Hemoglobin Concent 35.2 Red Cell Distribution Width 12.9 Platelet Count 125 Mean Platelet Volume 10.7 Neutrophils (%) (Auto) 86.0 Lymphocytes (%) (Auto) 6.1 Monocytes (%) (Auto) 7.8 Eosinophils (%) (Auto) 0.0 Basophils (%) (Auto) 0.1 Neutrophils # (Auto) 7.8 Lymphocytes # (Auto) 0.6 Monocytes # (Auto) 0.7 Eosinophils # (Auto) 0.0 Basophils # (Auto) 0.0 CBC Comment AUTO DIFF Differential Total Cells Counted 100 Neutrophils % (Manual) 87 Band Neutrophils % 5 Lymphocytes % 3 Monocytes % 1 Neutrophils # (Manual) 8.7 Metamyelocytes 3 Myelocytes 1 Nucleated Red Blood Cells 2 Differential Comment FINAL DIFF MANUAL Atypical Lymphocytes Toxic Granulation 1+ Dohle Bodies PRESENT Platelet Estimate LOW Platelet Morphology Comment NORMAL Basophilic Stippling FAINT Date/Time Source Procedure Growth Status 10/30/17 20:38 Blood Peripheral Aerobic Blood Culture - Preliminary NO GROWTH IN 3 DAYS Resulted 10/30/17 20:38 Blood Peripheral Anaerobic Blood Culture - Preliminary NO GROWTH IN 3 DAYS Resulted 11/01/17 11:05 Fluid Other Gram Stain - Final Resulted 11/01/17 11:05 Body Fluid Culture - Preliminary Gram Positive Cocci Resulted 10/31/17 10:40 Sputum Endotracheal Gram Stain - Final Complete 10/31/17 10:40 Sputum Endotracheal Sputum Culture - Final HEAVY GROWTH NORMAL RESPIRATORY KAREEM Complete 10/29/17 00:00 Urine Catheterized Urine Urine Culture - Final Enterococcus Faecalis Complete Imaging Last 48 hours Impressions Percutaneous Cholangiogram 11/01/17 0000 Signed Impressions: CONCLUSION: 1. Uncomplicated percutaneous cholecystostomy as above. Abdomen/Pelvis CT 11/01/17 0000 Signed Impressions: CONCLUSION: 1. Gallstones. There do appear to be areas of increased density within the com mon bile duct concerning for choledocholithiasis. 2. 4 mm nonobstructing left renal stone. 3. Sigmoid colon diverticula. 4. Bibasilar areas of consolidation or atelectasis being worse on the left wit h mild bilateral pleural effusions. Physical Exam HEENT: normocephalic; atraumatic; no jaundice. Throat is clear. NECK: Neck is supple, no JVD, CHEST: Chest is clear to auscultation and percussion. CARDIAC: Regular rate and rhythm with no murmur gallop or rubs. ABDOMEN: Soft, nondistended, nontender; no hepatosplenomegaly; bowel sounds are present in all four quadrants. Biliary drain noted EXTREMITIES: No clubbing, cyanosis, or edema. SKIN: Normal; no rash; no jaundice. DATA COLLECTOR: Intubated sedated. Assessment and Plan Assessment: (1) Sepsis ICD Codes: A41.9 - Sepsis, unspecified organism Status: Acute Plan 67-year-old unfortunate male presented to the hospital on 10/28/2017 with shortness of breath pain and numbness in the left leg he is now in the intensive care setting with ventilator management and appears to be in septic shock. Gallbladder ultrasound was done on 10/30/2017 showed fatty infiltration of liver and multiple gallstones without biliary obstruction. Current CT shows gallstones in the areas of increased density within the common bile duct concerning for choledocholithiasis. 4 mm nonobstructing left renal stone, sigmoid colon diverticula, bibasilar areas of consolidation and atelectasis worse on the left with mild bilateral pleural effusions. Patient is currently on ventilator management in the ICU setting with gastric tube in place and sedation. Abdomen is round, firm, tympanic, bowel sounds are present. Current plan for patient is INR for biliary drain placement LUBA. Patient has Peña catheter with dark yellow urine. Current labs show hemoglobin 12.4, WBC count 9.4, INR 1.7. Other current labs show elevated liver enzymes AST 111, ALT 81 , total bilirubin 2.2 which could be related to liver shock and/or fatty liver disease seen on gallbladder ultrasound. Fatty liver disease versus shock liver versus hepatic disease nonalcoholic Cholelithiasis, biliary obstruction History of GERD Plan Bilirubin appears to be declining and so are his LFTs IV steroids Antiemetics, Zofran Supportive care Monitor labs MRCP at some point when the patient is more stable versus ERCP Problem Qualifiers (1) Sepsis: Qualified Codes: A41.9 - Sepsis, unspecified organism Joseph Peterson MD November 02, 2017 18:36
[2017-11-02] MEDS: cloNIDine HCL 0.1 MG TAB PO PRN (23:41)
[2017-11-03] VITALS (18 sets, daily range): BP systolic 139–204; BP diastolic 65–90; PULSE 63–74; RESP 11–20; TEMP 97.9–98.8; O2SAT 91–100
[2017-11-03] MEDS ORDERED: niCARdipine INJ 25 MG in SODIUM CHLOR 0.9% 250 ML INJ 250 ML IV PRN (00:30)
[2017-11-03] MEDS: PROPOFOL 1000 MG/100 ML INJ 100 ML IV PRN ×5 (00:53→21:05)
[2017-11-03] MEDS: CHLORHEXIDINE GLUCONATE 2 % 1 PACK (2 CLOTHS) TOP SCH (03:17)
[2017-11-03] MEDS: RESP: ALBUTEROL 2.5 MG/IPRATROPIUM 0.5 MG NEB (SCH) NEB ×6 (03:34→23:48)
[2017-11-03] MEDS: methylPREDNISolone SOD SUCC 40 MG/1 ML VIAL IV PUSH SCH ×4 (04:42→23:45)
[2017-11-03] MEDS: hydrALAZINE HCL 10 MG TAB PO SCH (04:43)
[2017-11-03] MEDS: cloNIDine HCL 0.1 MG TAB PO PRN (04:43)
--- NOTE | 2017-11-03 05:30 | RADRPT ---
EXAM DATE: 11/03/2017 4:51 AM EDT AGE/SEX: 67 years / Male INDICATIONS: Shortness of breath, possible pulmonary disease. CLINICAL DATA: This is the patient's subsequent encounter. Patient reports that signs and symptoms h ave been present for 4 - 6 days and indicates a pain score of Nonresponsive. MEDICAL/SURGICAL HISTORY: Chronic obstructive pulmonary disease. Hiatal hernia. . Hernia repai r. [place] [facility] [place]. . FINDINGS: Right greater the left basilar parenchymal consolidation and small bilateral pleural effusions are pr esent, worse. No pneumothorax. Endotracheal tube tip is approximately 2 cm above the joceline. Nasogastric tube courses into the stoma ch. Heart size stable, within normal limits. CONCLUSION: Worsening parenchymal consolidation and small effusions at each lung base. Electronically signed by: Phi Marin MD 11/03/2017 5:28 AM EDT
[2017-11-03] MEDS: AMPICILLIN-SULBACTAM INJ 1,500 MG in SODIUM CHLORIDE 0.9% INJ 100 ML IV SCH ×2 (06:23→19:00)
[2017-11-03 06:41] LABS: HEMATOCRIT 32.2 % (39.0-51.0); HEMOGLOBIN 11.1 GM/DL (13.0-17.0); MEAN CELL VOLUME 90.6 FL (80.0-100.0); MEAN CORPUSCULAR HEMOGLOBIN 31.3 PG (27.0-34.0); MEAN CORPUSCULAR HGB CONC 34.6 % (32.0-36.0); MEAN PLATELET VOLUME 10.7 FL (7.0-11.0); PLATELET COUNT 149 TH/MM3 (150-450); RED BLOOD COUNT 3.56 MIL/MM3 (4.50-5.90); WHITE BLOOD COUNT 8.5 TH/MM3 (4.0-11.0)
[2017-11-03 07:20] LABS: INTERNATIONAL NORMALIZED RATIO 1.1 RATIO; PROTHROMBIN TIME - PATIENT 10.8 SEC (9.8-11.6)
[2017-11-03 07:28] LABS: ALBUMIN 1.9 GM/DL (3.4-5.0); BICARBONATE 32.1 MEQ/L (21.0-32.0); CALCIUM 7.3 MG/DL (8.5-10.1); CALCIUM-PROTEIN CORRECTED 8.3 MG/DL (8.5-10.1); CREATININE 1.4 MG/DL (0.60-1.30); MAGNESIUM 2.4 MG/DL (1.5-2.5); PHOSPHORUS 3.2 MG/DL (2.5-4.9); TOTAL BILIRUBIN ADULT 1.9 MG/DL (0.2-1.0); TOTAL PROTEIN 5.2 GM/DL (6.4-8.2)
[2017-11-03] MEDS: CHLORHEXIDINE 0.12% (ORAL KIT) 15 ML CUP MT SCH ×2 (08:00→20:00)
[2017-11-03] MEDS: FAMOTIDINE 20 MG/2 ML VIAL IV PUSH SCH ×2 (08:14→20:08)
[2017-11-03] MEDS: METOPROLOL TARTRATE 25 MG TAB PO SCH ×2 (08:15→20:08)
[2017-11-03] MEDS: SODIUM CHLORIDE 0.9% FLUSH 10 ML FLUSH IV FLUSH SCH ×2 (08:15→20:09)
[2017-11-03] MEDS: DOCUSATE SODIUM 50 MG/SENNA 8.6 MG TAB PO SCH ×2 (08:15→20:08)
[2017-11-03] MEDS: HEPARIN-D5W 25,000 U/250 ML 250 ML IV PRN (08:20)
[2017-11-03 09:13] LABS: BANDS 4 % (0-6); LYMPHOCYTES 5 % (9-44); MONOCYTES 6 % (0-8); NEUTROPHIL # MANUAL DIFF 7.6 TH/MM3 (1.8-7.7); POLYS (SEG NEUTROPHILS) 85 % (16-70)
[2017-11-03 09:14] LABS: TOXIC GRANULATION 1+ (NORMAL)
[2017-11-03] MEDS: ASPIRIN 81 MG CHEW TAB CHEW SCH (10:06)
--- NOTE | 2017-11-03 10:45 | HHI.CCPN ---
Subjective Remarks/Hospital Course 67-year-old male presents to the emergency department via EMS for evaluation of shortness of breath and pain and numbness to the left leg. Patient believes that he is shortness of breath is related to the pain in his leg. He cannot feel his leg from his groin down. He denies any history of the same. He does report history of COPD. He denies any known fevers or chills. He denies chest pain. Patient received 1 L normal saline bolus via EMS. Patient denies any history of bleeding or blood clots. No recent surgery or travel. No hemoptysis. No history of DVT/PE. He denies leg edema. Patient states the pain is 10/10 to the left leg. No exacerbating or alleviating factors. Moderate severity. 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 The right inflow is heavily diseased as well. The patient was evaluated by vascular surgeon operations program manager and was immediately started on heparin drip. SUBJ 10/29: Remains critically ill, encephalopathy. 4 out of 4 bottles positive for GNR. I will change Rocephin to Zosyn renally dosed to cover for Pseudomonas also. Continue azithromycin. Creatinine still elevated but slightly improved. WBC count slightly increased 17.2 now with 24% bands. Source of GNR sepsis could be either UTI or pneumonia. Will consult ID as well. Remains on IV heparin for acute left limb ischemia 10/30: platelets falling >50% again today. Cr still rising, but could be ATN/ contrast nephropathy. blood cultures growing e. coli by PCR, full speciation to follow. urine culture pending. discussed case with Dr. Lopez, will stop heparin , start argatroban and send HIT/CHARLEEN. denies complaints for me, but does have objective tenderness on palpation, RUQ. 10/31: Emergently intubated today a.m. by Dr. Puckett for worsening mental status, encephalopathy and worsening respiratory failure. Prior to intubation Dr. Puckett ' exam revealed right upper quadrant tenderness. Ultrasound of the gallbladder yesterday showed gallstones. Overnight Argatroban was supratherapeutic and was held, platelet count also dropped to 30,000, HIT screen is pending. Postintubation bilateral pupils are reactive but unequal. Will repeat CT of the head, CT abdomen pelvis. BUN 49/Creat 2.7, leukocytosis persisting 11/01: no improvements. ct abd/pelvis with evidence of possible choledocholithiasis. perc doug tube planned for this AM. on esmolol infusion for afib RVR. fio2 increased to 70%. 11/02: Sodium bicarbonate infusion continued per nephrology in the setting of rhabdomyolysis serial creatinine kinase pending. Cholecystostomy drain placement 100 cc overnight. Continued thrombocytopenia, CBC, serotonin release assay pending. Plan for reinitiation of heparin awaiting GI consultation for possible invasive procedures prior to restarting heparin. Patient sinus rhythm with occasional PAC's. 11/03: No acute events overnight. Sodium bicarbonate infusion discontinued this a.m. had any improved this a.m.. Chest x-ray showed worsening consolidation, FiO2 requirements were increased to 65% during the night. CPAP trials on hold currently. Biliary drainage from cholecystostomy tube revealing gram-negative rods. The patient continues on antibiotics. Bilateral dorsalis pedis pulses monophasic signals by Doppler. Heparin infusion reinitiated. Objective Vital Signs Date Time Temp Pulse Resp B/P (MAP) Pulse Ox O2 Delivery O2 Flow Rate FiO2 11/03/17 09:46 69 146/66 11/03/17 08:46 93 65 11/03/17 08:00 98.0 16 11/01/17 00:42 15.00 10/30/17 19:30 Nasal Cannula Intake and Output 11/03/17 11/03/17 11/04/17 08:00 16:00 00:00 Intake Total 100 ml 987 ml Output Total 980 ml Balance -880 ml 987 ml Result Diagram: 11/03/17 0545 11/03/17 0545 Other Results Microbiology Date/Time Source Procedure Growth Status 11/01/17 11:05 Fluid Other Gram Stain - Final Complete 11/01/17 11:05 Fluid Other Body Fluid Culture - Final Complete 10/31/17 10:40 Sputum Endotracheal Gram Stain - Final Complete 10/31/17 10:40 Sputum Endotracheal Sputum Culture - Final HEAVY GROWTH NORMAL RESPIRATORY KAREEM Complete Imaging Last Impressions Chest X-Ray 11/03/17 0600 Signed Impressions: CONCLUSION: Worsening parenchymal consolidation and small effusions at each lung base. Percutaneous Cholangiogram 11/01/17 0000 Signed Impressions: CONCLUSION: 1. Uncomplicated percutaneous cholecystostomy as above. Abdomen/Pelvis CT 5/25/18 0000 Signed Impressions: CONCLUSION: 1. Gallstones. There do appear to be areas of increased density within the com mon bile duct concerning for choledocholithiasis. 2. 4 mm nonobstructing left renal stone. 3. Sigmoid colon diverticula. 4. Bibasilar areas of consolidation or atelectasis being worse on the left wit h mild bilateral pleural effusions. Renal Ultrasound 10/31/17 Signed Impressions: CONCLUSION: 1. No hydronephrosis. 2. Increased cortical echogenicity consistent with medical renal disease. Head Magnetic Resonance Angiography 10/31/17 Signed Impressions: CONCLUSION: 1. Unremarkable MRA of the brain. Head CT 10/31/17 Signed Impressions: CONCLUSION: 1. Negative CT Head non contrast. 2. No evidence of acute infarct, hemorrhage, mass or edema. Brain MRI 10/31/17 Signed Impressions: CONCLUSION: 1. Senescent changes with minimal periventricular ischemic white matter demyel ination. 2. No acute abnormality. Specifically, no acute infarction, mass or hemorrhage . Gall Bladder Ultrasound 10/30/17 Signed Impressions: CONCLUSION: 1. Fatty infiltration of the liver. 2. Multiple stones in the gallbladder. No biliary tract obstruction. Extremity Arterial Study 10/28/17 Signed Impressions: CONCLUSION: 1. Abnormal ABIs, left greater than right. The left DAVID is significantly dimin ished at 0.14. Aorta w/Runoff CTA 10/28/17 Signed Impressions: Service Date/Time: Saturday, October 28, 2017 21:50 - CONCLUSION: 1. Acute occlusion of the left inflow with concern for short segment occlusion involving the distal right inflow. This raises concern for an embolic event. 2. Right lower extremity shows scattered disease throughout the common femoral artery, SFA and [id number] popliteal artery with three-vessel runoff to the foot. 3. Left lower extremity with reconstitution of the common femoral artery with diseased out flow and two vessel runoff to the foot as detailed above. 4. 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 5. Hepatic steatosis. 6. Cholelithiasis. Juanjose Mckeon Jr., MD Last Impressions Percutaneous Cholangiogram 11/01/17 Signed Impressions: CONCLUSION: 1. Uncomplicated percutaneous cholecystostomy as above. Abdomen/Pelvis CT 11/01/17 Signed Impressions: CONCLUSION: 1. Gallstones. There do appear to be areas of increased density within the com mon bile duct concerning for choledocholithiasis. 2. 4 mm nonobstructing left renal stone. 3. Sigmoid colon diverticula. 4. Bibasilar areas of consolidation or atelectasis being worse on the left wit h mild bilateral pleural effusions. Renal Ultrasound 10/31/17 Signed Impressions: CONCLUSION: 1. No hydronephrosis. 2. Increased cortical echogenicity consistent with medical renal disease. Head Magnetic Resonance Angiography 10/31/17 Signed Impressions: CONCLUSION: 1. Unremarkable MRA of the brain. Head CT 10/31/17 Signed Impressions: CONCLUSION: 1. Negative CT Head non contrast. 2. No evidence of acute infarct, hemorrhage, mass or edema. Chest X-Ray 10/31/17 Signed Impressions: CONCLUSION: Satisfactory position of endotracheal and nasogastric tubes. Increasing airspace disease and bilateral effusions. Brain MRI 10/31/17 Signed Impressions: CONCLUSION: 1. Senescent changes with minimal periventricular ischemic white matter demyel ination. 2. No acute abnormality. Specifically, no acute infarction, mass or hemorrhage . Gall Bladder Ultrasound 10/30/17 Signed Impressions: CONCLUSION: 1. Fatty infiltration of the liver. 2. Multiple stones in the gallbladder. No biliary tract obstruction. Extremity Arterial Study 10/28/17 Signed Impressions: CONCLUSION: 1. Abnormal ABIs, left greater than right. The left DAVID is significantly dimin ished at 0.14. Aorta w/Runoff CTA 10/28/17 Signed Impressions: Service Date/Time: Saturday, October 28, 2017 21:50 - CONCLUSION: 1. Acute occlusion of the left inflow with concern for short segment occlusion involving the distal right inflow. This raises concern for an embolic event. 2. Right lower extremity shows scattered disease throughout the common femoral artery, SFA and [id number] popliteal artery with three-vessel runoff to the foot. 3. Left lower extremity with reconstitution of the common femoral artery with diseased out flow and two vessel runoff to the foot as detailed above. 4. 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 5. Hepatic steatosis. 6. Cholelithiasis. Juanjose Mckeon Jr., MD Last 24 hours Impressions Chest X-Ray 10/28/172010 Signed Impressions: Service Date/Time: Saturday, October 28, 2017 20:20 - CONCLUSION: Left lower lobe infiltrate. Mild cardiomegaly. Juanjose Mckeon Jr., MD Objective Remarks GENERAL: This is a well-developed well-nourished middle-aged male, currently intubated, sedated, critically ill SKIN: Warm and dry. HEAD: Normocephalic. ENT: No scleral icterus. No injection or drainage. Pupils are now equal at 3mm, reactive. Orotracheally intubated NECK: Supple, trachea midline. No JVD. CARDIOVASCULAR: Tachycardic rate heart rate in 110s now. on esmolol infusion RESPIRATORY: Intubated. PRVC/AC. Air entry equal no significant wheezes. fio2 70%. GASTROINTESTINAL: Abdomen soft, mildly distended. no guarding. MUSCULOSKELETAL: No cyanosis, or edema. Left foot cool to touch. Bilateral DP with Doppler NEURO EXAM: Intubated, RASS -2. Withdraws to pain. does not follow commands. A/P Assessment and Plan Assessment: 67yM with limb ischemia, severe sepsis and associated multiorgan failure including shock liver, acute kidney injury. remains critically ill and organ failure worsening. Now with acute respiratory failure and worsening encephalopathy. HIT negative. holding anticoagulation. plan for percutaneous cholecystostomy tube today. platelets 70k today. will need to restart heparin post procedure. GI consulted, may need ERCP as well. in terms of hypoxic respiratory failure, likely ARDS at this point. ASSESSMENT/PLAN: NEURO: Acute metabolic encephalopathy -Intubated for airway protection and worsening respiratory failure -Propofol for sedation and vent synchrony -No sedation vacation until metabolic encephalopathy and sepsis improved -10/31 CT of the head- negative RESP: Acute hypoxemic respiratory failure COPD exacerbation Left lower lobe pneumonia ARDS -Emergently intubated and placed on mechanical ventilation 10/31/2017 -PRVC/AC, DuoNeb scheduled and as needed, ventilator bundle, head of bed elevation to 30 -Steroids IV. Pulmonary consultation: Dr. Johnson following - CT mild B/L pleural effusion -Continue Zosyn -Follow-up sputum and repeat blood cultures, urine culture CVS: Acute on chronic left limb ischemia Afib with RVR -CTA showed severe aorto-iliac occlusive disease with left iliac thrombosis -Significant calcifications and peripheral vascular disease -2D echo: EF 50%, no significant valvular lesions. left sided pleural effusion -Argatroban started 5/23, placed on hold due to worsening mental status, supratherapeutic -HIT screen negative. -Esmolol infusion discontinued . Increase metoprolol 50 mg twice daily -EKG normal sinus rhythm GI Acute hepatic dysfunction Hyperbilirubinemia Transaminitis Acute Choledocholithiasis -Trend LFTs, gallbladder ultrasound showed multiple gallstones -Most likely secondary to severe sepsis. -Repeat CT abdomen/pelvis 10/31: c/w choledocholithiasis - plan for perc doug tube today - GI consult. may need ERCP as well. 11/02-Dr. Packer, no invasive intervention at this time - continue NPO status Acute kidney injury Acute metabolic acidosis -Nephrology following -Sodium bicarbonate infusion discontinued 11/03. Creatinine much improved -Hydration, Strict I's and O's ID E COLI bacteremia/severe sepsis Enterococcus in the urine: possible colonization vs. UTI. Acute Choledocholithiasis Biliary fluid gram-negative rods -Source of bacteremia could be pneumonia or UTI or cholecystitis -Zosyn - unclear if enterococcus is clinical uti or colonization. will ask ID's advice before treating. -Follow-up repeat blood urine and sputum culture -ID following -Gallbladder u/s, shows gallstones HEME: acute thrombocytopenia: improving. -Most likely etiology is sepsis with consumption - HIT negative. Obtain serotonin release assay today - S/P doug tube 11/01 -Heparin infusion reinitiated -Resume aspirin DVT GI prophylaxis -Vickey's and SCDs -Heparin infusion -Pepcid Dispo: needs to remain in ICU. all organ systems worsening, very critical with prognosis guarded. Critical Care: The total critical care time was 31 minutes. Time to perform other separately billable procedures was not included in the critical care time. Patient remains critically ill with septic shock, multiorgan failure, choledocholithiasis, near-critical limb ischemia. Physician Skylar Lang MD November 03, 2017 10:45
--- NOTE | 2017-11-03 12:52 | HHI.NPPN ---
Subjective History of Present Illness patient is a 67 year old male with ischemic L leg, PVD HTN, ARF Objective Data Data 11/03/17 11/04/17 19:00 07:00 Intake Total 1067 ml Balance 1067 ml IV Total 1067 ml Vital Signs Date Time Temp Pulse Resp B/P (MAP) Pulse Ox O2 Delivery O2 Flow Rate FiO2 11/03/17 11:20 92 65 11/03/17 10:00 69 11/03/17 09:46 69 146/66 11/03/17 08:46 93 65 11/03/17 08:00 98.0 69 16 139/65 (89) 93 11/03/17 08:00 69 11/03/17 08:00 65 11/03/17 06:00 64 20 177/75 (109) 94 11/03/17 06:00 64 11/03/17 04:04 95 65 11/03/17 04:00 69 11/03/17 04:00 65 11/03/17 04:00 97.9 74 20 187/84 (118) 98 11/03/17 02:00 70 11/03/17 02:00 70 141/65 11/03/17 01:30 95 60 11/03/17 01:19 67 184/82 11/03/17 00:00 70 11/03/17 00:00 98.8 70 17 204/90 (128) 98 11/03/17 00:00 65 11/02/17 22:21 65 11/02/17 22:15 97 65 11/02/17 22:00 72 11/02/17 20:05 95 70 11/02/17 20:00 73 11/02/17 20:00 98.5 76 17 191/92 (125) 98 11/02/17 20:00 70 11/02/17 18:00 76 11/02/17 16:00 98.8 75 11 174/83 (113) 93 11/02/17 16:00 74 11/02/17 16:00 70 11/02/17 14:51 92 55 11/02/17 14:00 77 11/02/17 13:42 77 172/82 -: 11/03/17 0545 11/03/17 0545 Physical Exam General Appearance: Well Developed, Well Nourished Neck Neck Exam: Neck Supple Pulmonary Resp Exam: Clear Bilaterally, Breath Sounds Equal Gastrointestinal/Abdomen GI Exam: Soft, Non-Tender, Bowel Sounds Present Integumentary Skin Exam: Lesion(s) (toe ischemic) Extremeties Extremities Exam: Trace Edema Assessment/Plan Problem List: (1) Acute renal failure ICD Codes: N17.9 - Acute kidney failure, unspecified Plan: Patient has rhabdomyolysis cr declined dc bicarbonate drip CPK declined urine myoglobin was pos US increase echogenicity Follow BMP Avoid nephrotoxins Thrombocytopenia improved try diuresis with Lasix HTN on medications (2) Rhabdomyolysis ICD Codes: M62.82 - Rhabdomyolysis Plan: CPK declined (3) Acidosis, metabolic ICD Codes: E87.2 - Acidosis Status: Resolved (4) CKD (chronic kidney disease) stage 4, GFR 15-29 ml/min ICD Codes: N18.4 - Chronic kidney disease, stage 4 (severe) Plan: GFR is low (5) Peripheral vascular disease ICD Codes: I73.9 - Peripheral vascular disease, unspecified Plan: Vascular surgery follow-up (6) Ischemia of left lower extremity ICD Codes: I99.8 - Other disorder of circulatory system Status: Acute Plan: Patient is on anticoagulation (7) Pneumonia ICD Codes: J18.9 - Pneumonia, unspecified organism Status: Acute Plan: ID following on ampicillin/sulbactam (8) Sepsis ICD Codes: A41.9 - Sepsis, unspecified organism Status: Acute Plan: As above he has E. coli in the blood and enterococcus in the urine Problem Qualifiers (1) Acute renal failure: Qualified Codes: N17.0 - Acute kidney failure with tubular necrosis (2) Pneumonia: Qualified Codes: J18.1 - Lobar pneumonia, unspecified organism (3) Sepsis: Qualified Codes: A41.9 - Sepsis, unspecified organism Alexy Lemons MD November 03, 2017 12:52
--- NOTE | 2017-11-03 12:55 | EKG ---
Date Performed: 11/02/2017 Time Performed: 12:08:08 PTAGE: 67 years EKG: Sinus rhythm with PAC(s) Borderline ECG Compared to PREVIOUS TRACING , PACs are new. PREVIOUS TRACIN10/29/2017 07.23 DOCTOR: Rajesh Maldonado Interpretating Date/Time 11/03/2017 12:54:28
[2017-11-03] MEDS: FUROSEMIDE 40 MG/4 ML VIAL IV PUSH SCH (13:00)
[2017-11-03] MEDS: hydrALAZINE HCL 25 MG TAB PO SCH ×2 (13:21→22:10)
--- NOTE | 2017-11-03 13:50 | HHI.IDPN ---
Note Infectious Disease Note ID COVERAGE Notes reviewed Sedated on the vent BP running high Temps ok Has GB tube placed 11/01 Tbil decreasing Creat improving BC with pansensitie E coli UC with Enterococcus Bile C/S mixed GNR and GPC Sputum normal terrell Repeat BC negative 67-year-old white male who presented to the Emergency Department with shortness of breath and left leg pain. In the emergency Department his heart rate was 102 and temperature was 100.7. White blood cell count was elevated at 13.3 and lactic acid level was 7.4. Chest x-ray showed left lung infiltrate. Urinalysis showed 28 white cells with white blood cell clumps. PAST MEDICAL HISTORY: COPD, coronary artery disease, hernia repair. ALLERGIES: NO KNOWN DRUG ALLERGIES. Current Medications Medications (Trade) Dose Ordered Sig/Olesya Route Start Time Stop Time Status Last Admin (NS Flush) 2 ml UNSCH PRN IV FLUSH 10/28/17 22:15 (NS Flush) 2 ml BID IV FLUSH 10/29/17 09:00 11/03/17 08:15 (Tylenol) 650 mg Q6H PRN PO 10/28/17 22:15 (Dilaudid Pf Inj) 1 mg Q4H PRN IV 10/28/17 22:30 10/30/17 17:59 (Pepcid Inj) 10 mg Q12HR IV PUSH 10/29/17 09:00 11/03/17 08:14 (Zofran Inj) 4 mg Q6H PRN IV PUSH 10/28/17 22:15 (Restoril) 15 mg HS PRN PO 10/28/17 22:15 Future Hold (Duoneb Neb) 1 ampule Q2HR NEB PRN INH 10/28/17 22:15 10/31/17 05:34 ([facility] [place] [facility]) 1 Q361D XX 10/28/17 22:15 10/28/17 22:15 (Chlorhexidine 2% Cloth) Taper DAILY@04 TOP 10/29/17 04:00 10/25/18 03:59 11/02/17 04:00 (Chlorhexidine 2% Cloth) 3 pack UNSCH PRN TOP 10/28/17 22:15 (Elvira-Colace) 1 tab BID PO 10/29/17 09:00 11/03/17 08:15 (Milk Of Magnesia Liq) 30 ml Q12H PRN PO 10/28/17 22:15 (Senokot) 17.2 mg Q12H PRN PO 10/28/17 22:15 (Dulcolax Supp) 10 mg DAILY PRN RECTAL 10/28/17 22:15 (Lactulose Liq) 30 ml DAILY PRN PO 10/28/17 22:15 (SoluMEDROL INJ) 40 mg Q6HR IV PUSH 10/29/17 00:00 11/03/17 12:48 (Cardizem Cd) 240 mg DAILY PO 10/29/17 09:00 Future Hold 10/30/17 09:02 (Aspirin Chew) 81 mg DAILY CHEW 10/29/17 11:45 Future hold 11/03/17 10:06 (Brethine Inj) 1 mg UNSCH PRN SQ 10/31/17 06:15 Propofol 100 ml @ 2.73 mls/hr TITRATE PRN IV 10/31/17 07:00 11/03/17 10:46 (Peridex 0.12% Liq) 15 ml BID@08,20 MT 10/31/17 08:00 11/03/17 08:00 (Duoneb Neb) 1 ampule Q4HR NEB NEB 11/01/17 12:00 11/03/17 11:18 (Apresoline Inj) 20 mg Q4H PRN IV PUSH 11/02/17 14:00 Ampicillin Sodium/ Sulbactam Sodium 1500 mg/Sodium Chloride 100 ml @ 200 mls/hr Q8H IV 11/02/17 23:00 11/03/17 06:23 (Catapres) 0.1 mg Q6H PRN PO 11/02/17 23:45 11/03/17 04:43 Nicardipine HCl 25 mg/Sodium Chloride 260 ml @ 52 mls/hr TITRATE PRN IV 11/03/17 00:30 11/03/17 01:19 Heparin Sodium/ Dextrose 250 ml @ 12 mls/hr TITRATE PRN IV 11/03/17 07:00 11/03/17 08:20 (Apresoline) 25 mg Q8HR PO 11/03/17 14:00 11/03/17 13:21 (Lopressor) 50 mg Q12HR PO 11/03/17 09:00 11/03/17 08:15 (Lasix Inj) 40 mg DAILY IV PUSH 11/03/17 13:00 11/03/17 13:00 SOCIAL HISTORY: No tobacco. The patient quit smoking in 07/2017. No alcohol and no illicit drugs. The patient takes care of his elderly father at home who has dementia. FAMILY HISTORY: Noncontributory. OBJECTIVE: Vital Signs Date Time Temp Pulse Resp B/P (MAP) Pulse Ox O2 Delivery O2 Flow Rate FiO2 11/03/17 13:00 65 11/03/17 12:00 63 11/03/17 12:00 65 11/03/17 12:00 98.2 63 14 161/76 (104) 91 11/03/17 11:20 92 65 11/03/17 10:00 69 11/03/17 09:46 69 146/66 11/03/17 08:46 93 65 11/03/17 08:00 98.0 69 16 139/65 (89) 93 11/03/17 08:00 69 11/03/17 08:00 65 11/03/17 06:00 64 20 177/75 (109) 94 11/03/17 06:00 64 11/03/17 04:04 95 65 11/03/17 04:00 69 11/03/17 04:00 65 11/03/17 04:00 97.9 74 20 187/84 (118) 98 11/03/17 02:00 70 11/03/17 02:00 70 141/65 11/03/17 01:30 95 60 11/03/17 01:19 67 184/82 11/03/17 00:00 70 11/03/17 00:00 98.8 70 17 204/90 (128) 98 11/03/17 00:00 65 11/02/17 22:21 65 11/02/17 22:15 97 65 11/02/17 22:00 72 11/02/17 20:05 95 70 11/02/17 20:00 73 11/02/17 20:00 98.5 76 17 191/92 (125) 98 11/02/17 20:00 70 11/02/17 18:00 76 11/02/17 16:00 98.8 75 11 174/83 (113) 93 11/02/17 16:00 74 11/02/17 16:00 70 11/02/17 14:51 92 55 11/02/17 14:00 77 Vital Signs Date Time Temp Pulse Resp B/P (MAP) Pulse Ox O2 Delivery O2 Flow Rate FiO2 11/02/17 16:00 74 11/02/17 16:00 70 11/02/17 14:51 92 55 11/02/17 14:00 77 11/02/17 13:42 77 172/82 11/02/17 12:00 76 11/02/17 12:00 99.2 76 15 92 11/02/17 12:00 55 11/02/17 11:29 93 55 11/02/17 10:00 74 11/02/17 09:53 74 147/72 11/02/17 08:16 94 55 11/02/17 08:00 98.5 73 12 145/74 (97) 94 11/02/17 08:00 73 11/02/17 08:00 55 11/02/17 06:41 75 129/69 11/02/17 06:00 75 11/02/17 04:55 55 11/02/17 04:38 75 144/72 11/02/17 04:00 55 11/02/17 04:00 97.9 74 16 148/72 (97) 96 11/02/17 04:00 74 11/02/17 03:24 71 140/76 11/02/17 03:21 97 55 11/02/17 02:00 109 11/02/17 00:33 60 11/02/17 00:24 100 60 11/02/17 00:16 105 137/82 11/02/17 00:00 98.2 111 16 142/77 (98) 97 11/02/17 00:00 111 11/02/17 00:00 65 11/01/17 22:00 107 11/01/17 21:09 104 108/69 11/01/17 21:03 96 65 11/01/17 20:00 97.8 108 18 133/72 (92) 96 11/01/17 20:00 108 11/01/17 20:00 65 11/01/17 18:30 108 136/76 11/01/17 18:00 110 11/01/17 17:27 112 140/78 Laboratory Tests Test 11/02/17 13:28 11/03/17 05:45 White Blood Count 9.1 TH/MM3 8.5 TH/MM3 Red Blood Count 3.57 MIL/MM3 3.56 MIL/MM3 Hemoglobin 11.2 GM/DL 11.1 GM/DL Hematocrit 31.9 % 32.2 % Mean Corpuscular Volume 89.4 FL 90.6 FL Mean Corpuscular Hemoglobin 31.5 PG 31.3 PG Mean Corpuscular Hemoglobin Concent 35.2 % 34.6 % Red Cell Distribution Width 12.9 % 13.0 % Platelet Count 125 TH/MM3 149 TH/MM3 Mean Platelet Volume 10.7 FL 10.7 FL Neutrophils (%) (Auto) 86.0 % Lymphocytes (%) (Auto) 6.1 % Monocytes (%) (Auto) 7.8 % Eosinophils (%) (Auto) 0.0 % Basophils (%) (Auto) 0.1 % Neutrophils # (Auto) 7.8 TH/MM3 Lymphocytes # (Auto) 0.6 TH/MM3 Monocytes # (Auto) 0.7 TH/MM3 Eosinophils # (Auto) 0.0 TH/MM3 Basophils # (Auto) 0.0 TH/MM3 CBC Comment AUTO DIFF AUTO DIFF Differential Total Cells Counted 100 100 Neutrophils % (Manual) 87 % 85 % Band Neutrophils % 5 % 4 % Lymphocytes % 3 % 5 % Monocytes % 1 % 6 % Neutrophils # (Manual) 8.7 TH/MM3 7.6 TH/MM3 Metamyelocytes 3 % Myelocytes 1 % Nucleated Red Blood Cells 2 /100 WBC Differential Comment FINAL DIFF MANUAL FINAL DIFF MANUAL Atypical Lymphocytes % Toxic Granulation 1+ 1+ Dohle Bodies PRESENT Platelet Estimate LOW LOW Platelet Morphology Comment NORMAL ENLARGED Basophilic Stippling FAINT Laboratory Tests Test 11/01/17 17:20 11/02/17 06:46 11/03/17 05:45 Iron Level 145 MCG/DL Total Iron Binding Capacity 214 MCG/DL Percent Iron Saturation 67.7 % Ferritin 248 NG/ML Ammonia 32 MCMOL/L Amylase Level 47 U/L Lipase 126 U/L Tumor Marker Alpha Fetoprotein 6.9 NG/ML Blood Urea Nitrogen 55 MG/DL 50 MG/DL Creatinine 1.79 MG/DL 1.40 MG/DL Random Glucose 124 MG/DL 142 MG/DL Total Protein 5.7 GM/DL 5.2 GM/DL Albumin 1.9 GM/DL 1.9 GM/DL Calcium Level 7.1 MG/DL 7.3 MG/DL Alkaline Phosphatase 67 U/L 60 U/L Aspartate Amino Transf (AST/SGOT) 83 U/L 67 U/L Alanine Aminotransferase (ALT/SGPT) 78 U/L 64 U/L Total Bilirubin 2.0 MG/DL 1.9 MG/DL Direct Bilirubin 1.4 MG/DL Sodium Level 144 MEQ/L 142 MEQ/L Potassium Level 4.3 MEQ/L 4.0 MEQ/L Chloride Level 107 MEQ/L 102 MEQ/L Carbon Dioxide Level 26.3 MEQ/L 32.1 MEQ/L Anion Gap 11 MEQ/L 8 MEQ/L Estimat Glomerular Filtration Rate 38 ML/MIN 50 ML/MIN Protein Corrected Calcium 7.8 MG/DL 8.3 MG/DL Indirect Bilirubin 0.6 MG/DL Total Creatine Kinase 2074 U/L 1112 U/L Creatine Kinase MB 1.4 NG/ML 0.6 NG/ML Creatine Kinase MB % 0.1 % 0.1 % Phosphorus Level 3.2 MG/DL Magnesium Level 2.4 MG/DL Microbiology Date/Time Source Procedure Growth Status 11/01/17 11:05 Fluid Other Gram Stain - Final Complete 11/01/17 11:05 Fluid Other Body Fluid Culture - Final Complete Microbiology Date/Time Source Procedure Growth Status 10/30/17 20:38 Blood Peripheral Aerobic Blood Culture - Preliminary NO GROWTH IN 3 DAYS Resulted 10/30/17 20:38 Blood Peripheral Anaerobic Blood Culture - Preliminary NO GROWTH IN 3 DAYS Resulted 10/30/17 20:33 Blood Peripheral Aerobic Blood Culture - Preliminary NO GROWTH IN 3 DAYS Resulted 10/30/17 20:33 Blood Peripheral Anaerobic Blood Culture - Preliminary NO GROWTH IN 3 DAYS Resulted 11/01/17 11:05 Fluid Other Gram Stain - Final Resulted 11/01/17 11:05 Body Fluid Culture - Preliminary Gram Positive Cocci Resulted 10/31/17 10:40 Sputum Endotracheal Gram Stain - Final Complete 10/31/17 10:40 Sputum Endotracheal Sputum Culture - Final HEAVY GROWTH NORMAL RESPIRATORY TERRELL Complete Microbiology Date/Time Source Procedure Growth Status 10/30/17 20:38 Blood Peripheral Aerobic Blood Culture - Preliminary NO GROWTH IN 1 DAY Resulted 10/30/17 20:38 Blood Peripheral Anaerobic Blood Culture - Preliminary NO GROWTH IN 1 DAY Resulted 10/30/17 20:33 Blood Peripheral Aerobic Blood Culture - Preliminary NO GROWTH IN 1 DAY Resulted 10/30/17 20:33 Blood Peripheral Anaerobic Blood Culture - Preliminary NO GROWTH IN 1 DAY Resulted 10/28/17 20:20 Blood Peripheral Aerobic Blood Culture - Final Escherichia Coli Complete 10/28/17 20:20 Anaerobic Blood Culture - Final Escherichia Coli Complete 10/28/17 20:15 Blood Peripheral Aerobic Blood Culture - Final Escherichia Coli Complete 10/28/17 20:15 Anaerobic Blood Culture - Final Escherichia Coli Complete 10/31/17 10:40 Sputum Endotracheal Gram Stain Pending Received 10/31/17 10:40 Sputum Endotracheal Sputum Culture Pending Received 10/29/17 00:00 Urine Catheterized Urine Urine Culture - Final Enterococcus Faecalis Complete PHYSICAL EXAMINATION: GENERAL: Sedated on the vent, NAD. HEENT: Head atraumatic. Pupils reactive to light. No icterus. Oropharynx with slightly dry mucosa. ET in place NECK: Supple without adenopathy. No swelling. LUNGS: Decreased clear breath sounds. HEART: Regular rate and rhythm. Distant S1 and S2. No audible murmurs. ABDOMEN: Obese, distended. Cholecystostomy tube in place. Biliary drainage. EXTREMITIES: No clubbing or cyanosis. Has mild pedal edema. SKIN: No diffuse rash. NEUROLOGIC: No gross focal finding. PSYCHIATRIC: Calm and cooperative. IMPRESSION: Severe sepsis due to E. coli secondary to acute cholecystitis, cholangitis - S/P septic shock - gas GB tube in place Pneumonia. Bilateral airspace disease on chest x-ray. Leukocytosis secondary to infection. WBC improved. Acute kidney disease likely resulting from sepsis. Renal function remains poor. Respiratory failure RECOMMENDATIONS: Continue ampicillin/sulbactam. Adequate coverage for E. coli and enterococcus. - adjust dose as creatinine improves Follow C/S Monitor renal function. Monitor progress. Weaning per [facility] Shasta Gaitan MD November 03, 2017 13:50
--- NOTE | 2017-11-03 17:55 | HHI.PR ---
Subjective Remarks 67 YOWM with COPD,Sepsis, ischemia of leg Developed RF, intubated Plt decreased sedated On PRVC AC, Fi02 65% has thick mucous with bloody plugs Objective Vital Signs Vital Signs Date Time Temp Pulse Resp B/P (MAP) Pulse Ox O2 Delivery O2 Flow Rate FiO2 11/03/17 16:00 70 11/03/17 16:00 98.1 70 11 164/82 (109) 93 11/03/17 16:00 65 11/03/17 14:21 95 65 11/03/17 14:00 70 11/03/17 13:00 65 11/03/17 12:00 63 11/03/17 12:00 65 11/03/17 12:00 98.2 63 14 161/76 (104) 91 11/03/17 11:20 92 65 11/03/17 10:00 69 11/03/17 09:46 69 146/66 11/03/17 08:46 93 65 11/03/17 08:00 98.0 69 16 139/65 (89) 93 11/03/17 08:00 69 11/03/17 08:00 65 11/03/17 06:00 64 20 177/75 (109) 94 11/03/17 06:00 64 11/03/17 04:04 95 65 11/03/17 04:00 69 11/03/17 04:00 65 11/03/17 04:00 97.9 74 20 187/84 (118) 98 11/03/17 02:00 70 11/03/17 02:00 70 141/65 11/03/17 01:30 95 60 11/03/17 01:19 67 184/82 11/03/17 00:00 70 11/03/17 00:00 98.8 70 17 204/90 (128) 98 11/03/17 00:00 65 11/02/17 22:21 65 11/02/17 22:15 97 65 11/02/17 22:00 72 11/02/17 20:05 95 70 11/02/17 20:00 73 11/02/17 20:00 98.5 76 17 191/92 (125) 98 11/02/17 20:00 70 11/02/17 18:00 76 I/O 5/26/18 5/11/02/17 11/03/17 11/03/17 11/03/17 07:00 15:00 23:00 07:00 15:00 23:00 Intake Total 2260 ml 832 ml 2334 ml 296 ml 1067 ml 100 ml Output Total 825 ml 925 ml 980 ml 1450 ml Balance 1435 ml 832 ml 1409 ml -684 ml -383 ml 100 ml IV Total 2200 ml 832 ml 2214 ml 296 ml 1067 ml 100 ml Tube Irrigant 120 ml Other 60 ml Output Urine Total 725 ml 750 ml 850 ml 1450 ml Drainage Total 100 ml 175 ml 130 ml # Bowel Movements 0 0 Result Diagram: 11/03/17 0545 11/03/17 0545 Objective Remarks GENERAL: WBWN WM, On Vent, sedated SKIN: Warm and dry. HEAD: Normocephalic. EYES: No scleral icterus. No injection or drainage. NECK: Supple, trachea midline. No JVD or lymphadenopathy. CARDIOVASCULAR: Regular rate and rhythm without murmurs, gallops, or rubs. RESPIRATORY: Breath sounds equal bilaterally. No accessory muscle use. GASTROINTESTINAL: Abdomen soft, non-tender, nondistended. MUSCULOSKELETAL: No cyanosis, or edema. Cold left leg BACK: Nontender without obvious deformity. No CVA tenderness. A/P Assessment and Plan IMPRESSION: 1. Sepsis. 2. Chronic obstructive pulmonary disease, mild exacerbation. 3. Left basilar infiltrate. 4. Urinary tract infection 5. Encephalopathy. 6. Cold left leg. 7. Thrombocytopenia. 8. VDRF PLAN: Vent supportPRVC AC Sedation with Diprivan for comfort and Vent synchrony Cont Abx per ID Monitor Plt count Mucomyst Nebs CXr in AM If sig plugging/ atelactesis, may need bronch. Dennis Johnson MD November 03, 2017 17:55
[2017-11-03] MEDS ORDERED: SODIUM CHLORIDE 23.4% INJ 5.5 MEQ, SODIUM ACETATE INJ 29.5 MEQ, POTASSIUM CHLORIDE INJ ... IV SCH ×8 (20:00)
[2017-11-03] MEDS ORDERED: FAT EMULSION 20% INJ 250 ML (@10 mls/hr) IV SCH (20:00)
[2017-11-03] MEDS: RESP: ACETYLCYSTEINE 20% 10 ML NEB NEB SCH (20:32)
--- NOTE | 2017-11-03 22:31 | HHI.GIFU ---
Subjective Remarks Intubated and sedated Objective Vitals I&O Vital Signs Date Time Temp Pulse Resp B/P (MAP) Pulse Ox O2 Delivery O2 Flow Rate FiO2 11/03/17 22:00 66 11/03/17 20:30 100 65 11/03/17 20:00 65 11/03/17 20:00 65 11/03/17 20:00 98.7 65 13 182/86 (118) 95 11/03/17 18:00 63 11/03/17 16:00 70 11/03/17 16:00 98.1 70 11 164/82 (109) 93 11/03/17 16:00 65 11/03/17 14:21 95 65 11/03/17 14:00 70 11/03/17 13:00 65 11/03/17 12:00 63 11/03/17 12:00 65 11/03/17 12:00 98.2 63 14 161/76 (104) 91 11/03/17 11:20 92 65 11/03/17 10:00 69 11/03/17 09:46 69 146/66 11/03/17 08:46 93 65 11/03/17 08:00 98.0 69 16 139/65 (89) 93 11/03/17 08:00 69 11/03/17 08:00 65 11/03/17 06:00 64 20 177/75 (109) 94 11/03/17 06:00 64 11/03/17 04:04 95 65 11/03/17 04:00 69 11/03/17 04:00 65 11/03/17 04:00 97.9 74 20 187/84 (118) 98 11/03/17 02:00 70 11/03/17 02:00 70 141/65 11/03/17 01:30 95 60 11/03/17 01:19 67 184/82 11/03/17 00:00 70 11/03/17 00:00 98.8 70 17 204/90 (128) 98 11/03/17 00:00 65 I/O 11/02/17 11/02/17 11/02/17 11/03/17 11/03/17 11/03/17 07:00 15:00 23:00 07:00 15:00 23:00 Intake Total 2260 ml 832 ml 2334 ml 296 ml 1067 ml 366 ml Output Total 825 ml 925 ml 980 ml 1450 ml 475 ml Balance 1435 ml 832 ml 1409 ml -684 ml -383 ml -109 ml IV Total 2200 ml 832 ml 2214 ml 296 ml 1067 ml 246 ml Tube Irrigant 120 ml 120 ml Other 60 ml Output Urine Total 725 ml 750 ml 850 ml 1450 ml 350 ml Drainage Total 100 ml 175 ml 130 ml 125 ml # Bowel Movements 0 0 0 Laboratory Laboratory Tests Test 11/03/17 05:45 11/03/17 12:18 11/03/17 14:50 11/03/17 14:59 White Blood Count 8.5 Red Blood Count 3.56 Hemoglobin 11.1 Hematocrit 32.2 Mean Corpuscular Volume 90.6 Mean Corpuscular Hemoglobin 31.3 Mean Corpuscular Hemoglobin Concent 34.6 Red Cell Distribution Width 13.0 Platelet Count 149 Mean Platelet Volume 10.7 CBC Comment AUTO DIFF Differential Total Cells Counted 100 Neutrophils % (Manual) 85 Band Neutrophils % 4 Lymphocytes % 5 Monocytes % 6 Neutrophils # (Manual) 7.6 Differential Comment FINAL DIFF MANUAL Toxic Granulation 1+ Platelet Estimate LOW Platelet Morphology Comment ENLARGED Prothrombin Time 10.8 Prothromb Time International Ratio 1.1 Activated Partial Thromboplast Time 21.5 51.6 Blood Urea Nitrogen 50 Creatinine 1.40 Random Glucose 142 Total Protein 5.2 Albumin 1.9 Calcium Level 7.3 Phosphorus Level 3.2 Magnesium Level 2.4 Alkaline Phosphatase 60 Aspartate Amino Transf (AST/SGOT) 67 Alanine Aminotransferase (ALT/SGPT) 64 Total Bilirubin 1.9 Sodium Level 142 Potassium Level 4.0 Chloride Level 102 Carbon Dioxide Level 32.1 Anion Gap 8 Estimat Glomerular Filtration Rate 50 Protein Corrected Calcium 8.3 Total Creatine Kinase 1112 Creatine Kinase MB 0.6 Creatine Kinase MB % 0.1 Blood Gas Puncture Site RT RADIAL RT RADIAL Blood Gas Patient Temperature 98.6 98.6 Blood Gas HCO3 32 32 Blood Gas Base Excess 8.7 9.5 Blood Gas Oxygen Saturation 88 91 Arterial Blood pH 7.51 7.58 Arterial Blood Partial Pressure CO2 41 35 Arterial Blood Partial Pressure O2 58 60 Arterial Blood Oxygen Content 14.0 15.7 Arterial Blood Carboxyhemoglobin 1.0 1.1 Arterial Blood Methemoglobin 1.5 1.1 Blood Gas Hemoglobin 11.2 12.3 Oxygen Delivery Device VENTILATOR VENTILATOR Blood Gas Ventilator Setting Blood Gas Inspired Oxygen 65 65 Date/Time Source Procedure Growth Status 10/30/17 20:38 Blood Peripheral Aerobic Blood Culture - Preliminary NO GROWTH IN 4 DAYS Resulted 10/30/17 20:38 Blood Peripheral Anaerobic Blood Culture - Preliminary NO GROWTH IN 4 DAYS Resulted 11/01/17 11:05 Fluid Other Gram Stain - Final Complete 11/01/17 11:05 Fluid Other Body Fluid Culture - Final Complete 10/31/17 10:40 Sputum Endotracheal Gram Stain - Final Complete 10/31/17 10:40 Sputum Endotracheal Sputum Culture - Final HEAVY GROWTH NORMAL RESPIRATORY KAREEM Complete 10/29/17 00:00 Urine Catheterized Urine Urine Culture - Final Enterococcus Faecalis Complete Imaging Last 48 hours Impressions Chest X-Ray 11/03/17 0600 Signed Impressions: CONCLUSION: Worsening parenchymal consolidation and small effusions at each lung base. Physical Exam HEENT: normocephalic; atraumatic; no jaundice. Throat is clear. NECK: Neck is supple, no JVD, CHEST: Coarse breath sounds. CARDIAC: Regular rate and rhythm with no murmur gallop or rubs. ABDOMEN: Soft, nondistended, nontender; no hepatosplenomegaly; bowel sounds are present in all four quadrants. Biliary drain noted EXTREMITIES: No clubbing, cyanosis, or edema. SKIN: Normal; no rash; no jaundice. SURGERY SPECIALIST: Intubated sedated. Assessment and Plan Assessment: (1) Sepsis ICD Codes: A41.9 - Sepsis, unspecified organism Status: Acute Plan 67-year-old unfortunate male presented to the hospital on 10/28/2017 with shortness of breath pain and numbness in the left leg he is now in the intensive care setting with ventilator management and appears to be in septic shock. Gallbladder ultrasound was done on 10/30/2017 showed fatty infiltration of liver and multiple gallstones without biliary obstruction. Current CT shows gallstones in the areas of increased density within the common bile duct concerning for choledocholithiasis. 4 mm nonobstructing left renal stone, sigmoid colon diverticula, bibasilar areas of consolidation and atelectasis worse on the left with mild bilateral pleural effusions. Patient is currently on ventilator management in the ICU setting with gastric tube in place and sedation. Abdomen is round, firm, tympanic, bowel sounds are present. Current plan for patient is INR for biliary drain placement LUBA. Patient has Peña catheter with dark yellow urine. Current labs show hemoglobin 12.4, WBC count 9.4, INR 1.7. Other current labs show elevated liver enzymes AST 111, ALT 81 , total bilirubin 2.2 which could be related to liver shock and/or fatty liver disease seen on gallbladder ultrasound. Fatty liver disease versus shock liver versus hepatic disease nonalcoholic Cholelithiasis, biliary obstruction History of GERD Plan Labs moving in the right direction Continue with current supportive care Monitor labs MRCP at some point when the patient is more stable versus ERCP Problem Qualifiers (1) Sepsis: Qualified Codes: A41.9 - Sepsis, unspecified organism Joseph Peterson MD November 03, 2017 22:31
[2017-11-04] VITALS (18 sets, daily range): BP systolic 138–187; BP diastolic 65–84; PULSE 48–64; RESP 5–18; TEMP 98.4–99.1; O2SAT 91–100
[2017-11-04] MEDS: AMPICILLIN-SULBACTAM INJ 1,500 MG in SODIUM CHLORIDE 0.9% INJ 100 ML IV SCH ×4 (01:29→17:44)
[2017-11-04] MEDS: PROPOFOL 1000 MG/100 ML INJ 100 ML IV PRN ×5 (01:41→20:56)
[2017-11-04] MEDS: cloNIDine HCL 0.1 MG TAB PO PRN (02:35)
[2017-11-04 03:25] LABS: AUTOMATED NEUTROPHIL # 10.4 TH/MM3 (1.8-7.7); BASOPHIL % 0.2 % (0.0-2.0); EOSINOPHIL % 0.1 % (0.0-4.0); HEMATOCRIT 33.9 % (39.0-51.0); HEMOGLOBIN 11.7 GM/DL (13.0-17.0); LYMPH % 3.9 % (9.0-44.0); LYMPHOCYTE # 0.4 TH/MM3 (1.0-4.8); MEAN CELL VOLUME 90.6 FL (80.0-100.0); MEAN CORPUSCULAR HEMOGLOBIN 31.1 PG (27.0-34.0); MEAN CORPUSCULAR HGB CONC 34.3 % (32.0-36.0); MEAN PLATELET VOLUME 10.1 FL (7.0-11.0); MONOCYTE # 0.6 TH/MM3 (0-0.9); NEUT % 90.8 % (16.0-70.0); PLATELET COUNT 183 TH/MM3 (150-450); RED BLOOD COUNT 3.75 MIL/MM3 (4.50-5.90); RED CELL DISTRIBUTION WIDTH 13.3 % (11.6-17.2); WHITE BLOOD COUNT 11.5 TH/MM3 (4.0-11.0)
[2017-11-04] MEDS: RESP: ACETYLCYSTEINE 20% 10 ML NEB NEB SCH ×4 (03:40→20:59)
[2017-11-04] MEDS: RESP: ALBUTEROL 2.5 MG/IPRATROPIUM 0.5 MG NEB (SCH) NEB ×6 (03:41→23:50)
[2017-11-04] MEDS: CHLORHEXIDINE GLUCONATE 2 % 1 PACK (2 CLOTHS) TOP SCH ×2 (04:00→22:22)
[2017-11-04 04:06] LABS: ALBUMIN 1.8 GM/DL (3.4-5.0); CALCIUM 7.2 MG/DL (8.5-10.1); CALCIUM-PROTEIN CORRECTED 8.4 MG/DL (8.5-10.1); CREATININE 1.23 MG/DL (0.60-1.30); MAGNESIUM 2.4 MG/DL (1.5-2.5); PHOSPHORUS 3.9 MG/DL (2.5-4.9); TOTAL BILIRUBIN ADULT 1.7 MG/DL (0.2-1.0); TOTAL PROTEIN 4.9 GM/DL (6.4-8.2)
[2017-11-04] MEDS: hydrALAZINE HCL 25 MG TAB PO SCH ×3 (05:33→22:22)
[2017-11-04] MEDS: HEPARIN-D5W 25,000 U/250 ML 250 ML IV PRN (05:33)
[2017-11-04] MEDS: methylPREDNISolone SOD SUCC 40 MG/1 ML VIAL IV PUSH SCH ×3 (05:33→17:00)
--- NOTE | 2017-11-04 06:30 | RADRPT ---
EXAM DATE: 11/04/2017 6:20 AM EDT AGE/SEX: 67 years / Male INDICATIONS: Shortness of breath, possible pulmonary disease. CLINICAL DATA: This is the patient's subsequent encounter. Patient reports that signs and symptoms h ave been present for 1 week and indicates a pain score of Nonresponsive. MEDICAL/SURGICAL HISTORY: Chronic obstructive pulmonary disease. Hiatal hernia. . Hernia repai r. COMPARISON: [facility] [place], 11/03/2017. . FINDINGS: Bibasilar opacities are present may be due to a combination of consolidation and or pleur al effusion worse on the left . ET tube and NG tube have not changed. Mild pulmonary edema is also s uspected. CONCLUSION: No appreciable change. Electronically signed by: Talya Sanders MD 11/04/2017 6:29 AM EDT
[2017-11-04] MEDS: DOCUSATE SODIUM 50 MG/SENNA 8.6 MG TAB PO SCH ×2 (08:39→20:24)
[2017-11-04] MEDS: ASPIRIN 81 MG CHEW TAB CHEW SCH (08:39)
[2017-11-04] MEDS: METOPROLOL TARTRATE 25 MG TAB PO SCH (08:40)
[2017-11-04] MEDS: FUROSEMIDE 40 MG/4 ML VIAL IV PUSH SCH (08:40)
[2017-11-04] MEDS: FAMOTIDINE 20 MG/2 ML VIAL IV PUSH SCH ×2 (08:40→20:24)
[2017-11-04] MEDS: SODIUM CHLORIDE 0.9% FLUSH 10 ML FLUSH IV FLUSH SCH ×2 (08:40→20:24)
[2017-11-04] MEDS: CHLORHEXIDINE 0.12% (ORAL KIT) 15 ML CUP MT SCH ×2 (08:41→20:24)
--- NOTE | 2017-11-04 10:45 | HHI.GIFU ---
Subjective Remarks Remains intubated and sedated (Annika Tenorio) Objective Vitals I&O Vital Signs Date Time Temp Pulse Resp B/P (MAP) Pulse Ox O2 Delivery O2 Flow Rate FiO2 11/04/17 08:12 94 60 11/04/17 06:00 50 11/04/17 04:22 92 60 11/04/17 04:00 65 11/04/17 04:00 49 11/04/17 04:00 98.7 49 9 138/65 (89) 91 11/04/17 02:00 51 11/04/17 02:00 64 11/04/17 00:03 100 55 11/04/17 00:00 65 11/04/17 00:00 98.5 64 5 187/84 (118) 99 11/04/17 00:00 64 11/03/17 22:00 66 11/03/17 20:30 100 65 11/03/17 20:00 65 11/03/17 20:00 65 11/03/17 20:00 98.7 65 13 182/86 (118) 95 11/03/17 18:00 63 11/03/17 16:00 70 11/03/17 16:00 98.1 70 11 164/82 (109) 93 11/03/17 16:00 65 11/03/17 14:21 95 65 11/03/17 14:00 70 11/03/17 13:00 65 11/03/17 12:00 63 11/03/17 12:00 65 11/03/17 12:00 98.2 63 14 161/76 (104) 91 11/03/17 11:20 92 65 I/O 11/03/17 11/03/17 11/03/17 11/04/17 11/04/17 11/04/17 07:00 15:00 23:00 07:00 15:00 23:00 Intake Total 296 ml 1067 ml 530 ml 200 ml Output Total 980 ml 1450 ml 475 ml 900 ml Balance -684 ml -383 ml 55 ml -700 ml IV Total 296 ml 1067 ml 410 ml 100 ml Tube Irrigant 120 ml 100 ml Output Urine Total 850 ml 1450 ml 350 ml 750 ml Drainage Total 130 ml 125 ml 150 ml # Bowel Movements 0 1 Laboratory Laboratory Tests Test 11/03/17 12:18 11/03/17 14:50 11/03/17 14:59 11/04/17 03:12 Blood Gas Puncture Site RT RADIAL RT RADIAL Blood Gas Patient Temperature 98.6 98.6 Blood Gas HCO3 32 32 Blood Gas Base Excess 8.7 9.5 Blood Gas Oxygen Saturation 88 91 Arterial Blood pH 7.51 7.58 Arterial Blood Partial Pressure CO2 41 35 Arterial Blood Partial Pressure O2 58 60 Arterial Blood Oxygen Content 14.0 15.7 Arterial Blood Carboxyhemoglobin 1.0 1.1 Arterial Blood Methemoglobin 1.5 1.1 Blood Gas Hemoglobin 11.2 12.3 Oxygen Delivery Device VENTILATOR VENTILATOR Blood Gas Ventilator Setting Blood Gas Inspired Oxygen 65 65 Activated Partial Thromboplast Time 51.6 43.6 White Blood Count 11.5 Red Blood Count 3.75 Hemoglobin 11.7 Hematocrit 33.9 Mean Corpuscular Volume 90.6 Mean Corpuscular Hemoglobin 31.1 Mean Corpuscular Hemoglobin Concent 34.3 Red Cell Distribution Width 13.3 Platelet Count 183 Mean Platelet Volume 10.1 Neutrophils (%) (Auto) 90.8 Lymphocytes (%) (Auto) 3.9 Monocytes (%) (Auto) 5.0 Eosinophils (%) (Auto) 0.1 Basophils (%) (Auto) 0.2 Neutrophils # (Auto) 10.4 Lymphocytes # (Auto) 0.4 Monocytes # (Auto) 0.6 Eosinophils # (Auto) 0.0 Basophils # (Auto) 0.0 CBC Comment DIFF FINAL Differential Comment Blood Urea Nitrogen 46 Creatinine 1.23 Random Glucose 117 Total Protein 4.9 Albumin 1.8 Calcium Level 7.2 Phosphorus Level 3.9 Magnesium Level 2.4 Alkaline Phosphatase 58 Aspartate Amino Transf (AST/SGOT) 51 Alanine Aminotransferase (ALT/SGPT) 58 Total Bilirubin 1.7 Sodium Level 146 Potassium Level 3.6 Chloride Level 104 Carbon Dioxide Level 32.0 Anion Gap 10 Estimat Glomerular Filtration Rate 59 Protein Corrected Calcium 8.4 Test 11/04/17 05:10 Blood Gas Puncture Site LT RADIAL Blood Gas Patient Temperature 98.6 Blood Gas HCO3 33 Blood Gas Base Excess 9.3 Blood Gas Oxygen Saturation 93 Arterial Blood pH 7.51 Arterial Blood Partial Pressure CO2 42 Arterial Blood Partial Pressure O2 75 Arterial Blood Oxygen Content 14.7 Arterial Blood Carboxyhemoglobin 1.0 Arterial Blood Methemoglobin 1.5 Blood Gas Hemoglobin 11.2 Oxygen Delivery Device VENTILATOR Blood Gas Ventilator Setting PRVC/AC Blood Gas Inspired Oxygen 60 Date/Time Source Procedure Growth Status 10/30/17 20:38 Blood Peripheral Aerobic Blood Culture - Preliminary NO GROWTH IN 4 DAYS Resulted 10/30/17 20:38 Blood Peripheral Anaerobic Blood Culture - Preliminary NO GROWTH IN 4 DAYS Resulted 11/01/17 11:05 Fluid Other Gram Stain - Final Complete 11/01/17 11:05 Fluid Other Body Fluid Culture - Final Complete 11/04/17 05:08 Stool Stool Stool Occult Blood (NUBIA) - Final HEMOCCULT POSITIVE Complete 10/31/17 10:40 Sputum Endotracheal Gram Stain - Final Complete 10/31/17 10:40 Sputum Endotracheal Sputum Culture - Final HEAVY GROWTH NORMAL RESPIRATORY TERRELL Complete 10/29/17 00:00 Urine Catheterized Urine Urine Culture - Final Enterococcus Faecalis Complete Imaging Last Impressions Chest X-Ray 11/04/17 0600 Signed Impressions: CONCLUSION: No appreciable change. Percutaneous Cholangiogram 11/01/17 Signed Impressions: CONCLUSION: 1. Uncomplicated percutaneous cholecystostomy as above. Abdomen/Pelvis CT 11/01/17 Signed Impressions: CONCLUSION: 1. Gallstones. There do appear to be areas of increased density within the com mon bile duct concerning for choledocholithiasis. 2. 4 mm nonobstructing left renal stone. 3. Sigmoid colon diverticula. 4. Bibasilar areas of consolidation or atelectasis being worse on the left wit h mild bilateral pleural effusions. Renal Ultrasound 10/31/17 Signed Impressions: CONCLUSION: 1. No hydronephrosis. 2. Increased cortical echogenicity consistent with medical renal disease. Head Magnetic Resonance Angiography 10/31/17 Signed Impressions: CONCLUSION: 1. Unremarkable MRA of the brain. Head CT 10/31/17 Signed Impressions: CONCLUSION: 1. Negative CT Head non contrast. 2. No evidence of acute infarct, hemorrhage, mass or edema. Brain MRI 10/31/17 Signed Impressions: CONCLUSION: 1. Senescent changes with minimal periventricular ischemic white matter demyel ination. 2. No acute abnormality. Specifically, no acute infarction, mass or hemorrhage . Gall Bladder Ultrasound 10/30/17 Signed Impressions: CONCLUSION: 1. Fatty infiltration of the liver. 2. Multiple stones in the gallbladder. No biliary tract obstruction. Extremity Arterial Study 10/28/17 Signed Impressions: CONCLUSION: 1. Abnormal ABIs, left greater than right. The left DAVID is significantly dimin ished at 0.14. Aorta w/Runoff CTA 10/28/17 0000 Signed Impressions: Service Date/Time: Saturday, October 28, 2017 21:50 - CONCLUSION: 1. Acute occlusion of the left inflow with concern for short segment occlusion involving the distal right inflow. This raises concern for an embolic event. 2. Right lower extremity shows scattered disease throughout the common femoral artery, SFA and [id number] popliteal artery with three-vessel runoff to the foot. 3. Left lower extremity with reconstitution of the common femoral artery with diseased out flow and two vessel runoff to the foot as detailed above. 4. 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 5. Hepatic steatosis. 6. Cholelithiasis. Juanjose Mckeon Jr., MD Physical Exam HEENT: Normocephalic; atraumatic CHEST Respirations synchronized with vent via ETT CARDIAC: RRR ABDOMEN: Distended, soft, bowel sounds active, cholecystomy drain with approx 30 mL of dark colored fluid SKIN: Normal; no rash; no jaundice. 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 S/P IR for percutaneous cholecystostomy drain on 11/01 - Culture with heavy growth of gram positive and gram negative enteric terrell, no further work up Pt on Unasyn - Elevated LFTs- likely secondary to obstruction from above but liver work up pending Iron-145 TIBC-214 %sat-67.7 Ferritin-248 AFP-6.9 Hepatitis panel negative [place], AMA, ASMA, ceruloplasmin, AAT pending - Anemia, normocytic- with Hemoccult positive stools- no obvious GIB - Cold left leg- Heparin gtt Plan Monitor output from cholecystostomy drain Monitor LFTs Liver YODER pending- although likely the cause for elevated LFTs- obstructive Antibiotics per ID Monitor H/H Notify GI if any obvious GIB Of note, on Heparin gtt Further recommendations based on clinical course Pt has been seen and examined by myself and Dr. Romo and this note is written on his behalf (Annika Tenorio) Physician Comments Seen and examined with FISH CUTTING MACHINE OPERATOR, cholecystostomy drain draining dark colored bile. MRCP. Vs ERCP when able. Also needs GS consult. Discussed with Dr. Holly. (Nik Romo MD) Problem Qualifiers (1) Sepsis: Qualified Codes: A41.9 - Sepsis, unspecified organism Annika Tenorio November 04, 2017 10:45 Nik Romo MD November 04, 2017 14:29
--- NOTE | 2017-11-04 10:54 | HHI.NPPN ---
Subjective History of Present Illness patient is a 67 year old male with ischemic L leg, PVD HTN, ARF Objective Data Data Vital Signs Date Time Temp Pulse Resp B/P (MAP) Pulse Ox O2 Delivery O2 Flow Rate FiO2 11/04/17 08:12 94 60 11/04/17 06:00 50 11/04/17 04:22 92 60 11/04/17 04:00 65 11/04/17 04:00 49 11/04/17 04:00 98.7 49 9 138/65 (89) 91 11/04/17 02:00 51 11/04/17 02:00 64 11/04/17 00:03 100 55 11/04/17 00:00 65 11/04/17 00:00 98.5 64 5 187/84 (118) 99 11/04/17 00:00 64 11/03/17 22:00 66 11/03/17 20:30 100 65 11/03/17 20:00 65 11/03/17 20:00 65 11/03/17 20:00 98.7 65 13 182/86 (118) 95 11/03/17 18:00 63 11/03/17 16:00 70 11/03/17 16:00 98.1 70 11 164/82 (109) 93 11/03/17 16:00 65 11/03/17 14:21 95 65 11/03/17 14:00 70 11/03/17 13:00 65 11/03/17 12:00 63 11/03/17 12:00 65 11/03/17 12:00 98.2 63 14 161/76 (104) 91 11/03/17 11:20 92 65 -: 11/04/17 0312 11/04/17 0312 Microbiology 11/04/17 Stool Occult Blood (NUBIA) - Final, Complete HEMOCCULT POSITIVE Physical Exam General Appearance: Well Developed, Well Nourished Neck Neck Exam: Neck Supple Pulmonary Resp Exam: Clear Bilaterally, Breath Sounds Equal Gastrointestinal/Abdomen GI Exam: Soft, Non-Tender, Bowel Sounds Present Extremeties Extremities Exam: Trace Edema Assessment/Plan Problem List: (1) Acute renal failure ICD Codes: N17.9 - Acute kidney failure, unspecified Plan: Patient has rhabdomyolysis cr declined 1.2 non oliguric Nephrology to follow as needed (2) Rhabdomyolysis ICD Codes: M62.82 - Rhabdomyolysis Plan: CPK declined (3) Acidosis, metabolic ICD Codes: E87.2 - Acidosis Status: Resolved (4) CKD (chronic kidney disease) stage 4, GFR 15-29 ml/min ICD Codes: N18.4 - Chronic kidney disease, stage 4 (severe) Plan: GFR is low (5) Peripheral vascular disease ICD Codes: I73.9 - Peripheral vascular disease, unspecified Plan: Vascular surgery follow-up (6) Ischemia of left lower extremity ICD Codes: I99.8 - Other disorder of circulatory system Status: Acute Plan: Patient is on anticoagulation (7) Pneumonia ICD Codes: J18.9 - Pneumonia, unspecified organism Status: Acute Plan: ID following on ampicillin/sulbactam (8) Sepsis ICD Codes: A41.9 - Sepsis, unspecified organism Status: Acute Plan: As above he has E. coli in the blood and enterococcus in the urine Problem Qualifiers (1) Acute renal failure: Qualified Codes: N17.0 - Acute kidney failure with tubular necrosis (2) Pneumonia: Qualified Codes: J18.1 - Lobar pneumonia, unspecified organism (3) Sepsis: Qualified Codes: A41.9 - Sepsis, unspecified organism Alexy Lemons MD November 04, 2017 10:54
--- NOTE | 2017-11-04 12:09 | HHI.IDPN ---
Note Infectious Disease Note Patient remains on the ventilator. Intubated on 10/31. Sedated. Unresponsive. No distress. Afebrile. Cholecystostomy tube in place has biliary fluid. 67-year-old white male who presented to the Emergency Department with shortness of breath and left leg pain. In the emergency Department his heart rate was 102 and temperature was 100.7. White blood cell count was elevated at 13.3 and lactic acid level was 7.4. Chest x-ray showed left lung infiltrate. Urinalysis showed 28 white cells with white blood cell clumps. PAST MEDICAL HISTORY: COPD, coronary artery disease, hernia repair. ALLERGIES: NO KNOWN DRUG ALLERGIES. Current Medications Medications (Trade) Dose Ordered Sig/Olesya Route PRN Reason Start Time Stop Time Status Last Admin Dose Admin Sodium Chloride (NS Flush) 2 ml UNSCH PRN IV FLUSH FLUSH AFTER USING IV ACCESS 10/28/17 22:15 Sodium Chloride (NS Flush) 2 ml BID IV FLUSH 10/29/17 09:00 11/04/17 08:40 Acetaminophen (Tylenol) 650 mg Q6H PRN PO PAIN 1-5 AND/OR FEVER >101F 10/28/17 22:15 Hydromorphone HCl (Dilaudid Pf Inj) 1 mg Q4H PRN IV PAIN SCALE 6 TO 10 10/28/17 22:30 10/30/17 17:59 Famotidine (Pepcid Inj) 10 mg Q12HR IV PUSH 10/29/17 09:00 11/04/17 08:40 Ondansetron HCl (Zofran Inj) 4 mg Q6H PRN IV PUSH NAUSEA OR VOMITING 10/28/17 22:15 Temazepam (Restoril) 15 mg HS PRN PO INSOMNIA 10/28/17 22:15 Future Hold Albuterol/ Ipratropium (Duoneb Neb) 1 ampule Q2HR NEB PRN INH WHEEZING 10/28/17 22:15 10/31/17 05:34 Miscellaneous Information ([facility] Nursing Information) 1 [id number] XX 10/28/17 22:15 10/28/17 22:15 Chlorhexidine Gluconate (Chlorhexidine 2% Cloth) Taper DAILY@04 TOP 10/29/17 04:00 10/25/18 03:59 11/04/17 04:00 Chlorhexidine Gluconate (Chlorhexidine 2% Cloth) 3 pack UNSCH PRN TOP HYGIENIC CARE 10/28/17 22:15 Senna/Docusate Sodium (Elvira-Colace) 1 tab BID PO 10/29/17 09:00 11/04/17 08:39 Magnesium Hydroxide (Milk Of Magnesia Liq) 30 ml Q12H PRN PO Mild constipation 10/28/17 22:15 Sennosides (Senokot) 17.2 mg Q12H PRN PO Moderate constipation 10/28/17 22:15 Bisacodyl (Dulcolax Supp) 10 mg DAILY PRN RECTAL SEVERE CONSITIPATION 10/28/17 22:15 Lactulose (Lactulose Liq) 30 ml DAILY PRN PO SEVERE CONSITIPATION 10/28/17 22:15 Methylprednisolone Sodium Succinate (SoluMEDROL INJ) 40 mg Q6HR IV PUSH 10/29/17 00:00 11/04/17 05:33 Diltiazem HCl (Cardizem Cd) 240 mg DAILY PO 10/29/17 09:00 Future Hold 10/30/17 09:02 Aspirin (Aspirin Chew) 81 mg DAILY CHEW 10/29/17 11:45 Future hold 11/04/17 08:39 Terbutaline Sulfate (Brethine Inj) 1 mg UNSCH PRN SQ For Extravasation 10/31/17 06:15 Propofol 100 ml @ 2.73 mls/hr TITRATE PRN IV SEDATION 10/31/17 07:00 11/04/17 06:46 Chlorhexidine Gluconate (Peridex 0.12% Liq) 15 ml BID@08,20 MT 10/31/17 08:00 11/04/17 08:41 Albuterol/ Ipratropium (Duoneb Neb) 1 ampule Q4HR NEB NEB 11/01/17 12:00 11/04/17 11:43 Hydralazine HCl (Apresoline Inj) 20 mg Q4H PRN IV PUSH SBP>160, DBP>90 11/02/17 14:00 Clonidine (Catapres) 0.1 mg Q6H PRN PO SBP>160, DBP>90 11/02/17 23:45 11/04/17 02:35 Nicardipine HCl 25 mg/Sodium Chloride 260 ml @ 52 mls/hr TITRATE PRN IV Blood pressure management 11/03/17 00:30 11/03/17 01:19 Heparin Sodium/ Dextrose 250 ml @ 12 mls/hr TITRATE PRN IV Coagulation Management 11/03/17 07:00 11/04/17 05:33 Hydralazine HCl (Apresoline) 25 mg Q8HR PO 11/03/17 14:00 11/04/17 05:33 Metoprolol Tartrate (Lopressor) 50 mg Q12HR PO 11/03/17 09:00 11/03/17 20:08 Furosemide (Lasix Inj) 40 mg DAILY IV PUSH 11/03/17 13:00 11/04/17 08:40 Ampicillin Sodium/ Sulbactam Sodium 1500 mg/Sodium Chloride 100 ml @ 200 mls/hr Q6H IV 11/03/17 19:00 11/04/17 05:33 Sodium Chloride 5.5 meq/Sodium Acetate 29.5 meq/ Potassium Chloride 20 meq/ Magnesium Chloride 5 meq/ Calcium Chloride 4.5 meq/ Multivitamins 10 ml/Folic Acid 1 mg/Amino Acids/ Dextrose 1,034.7969 ml @ 42 mls/hr Q24H IV 11/03/17 20:00 11/03/17 20:10 Fat Emulsion Intravenous 250 ml @ 10 mls/hr Q24H IV 11/03/17 20:00 11/03/17 20:12 Acetylcysteine (Mucomyst 20% Neb) 2 ml Q6HR NEB NEB 11/03/17 18:00 SOCIAL HISTORY: No tobacco. The patient quit smoking in 07/2017. No alcohol and no illicit drugs. The patient takes care of his elderly father at home who has dementia. FAMILY HISTORY: Noncontributory. OBJECTIVE: Vital Signs Date Time Temp Pulse Resp B/P (MAP) Pulse Ox O2 Delivery O2 Flow Rate FiO2 11/04/17 11:41 97 60 11/04/17 08:12 94 60 11/04/17 06:00 50 11/04/17 04:22 92 60 11/04/17 04:00 65 11/04/17 04:00 49 11/04/17 04:00 98.7 49 9 138/65 (89) 91 11/04/17 02:00 51 11/04/17 02:00 64 11/04/17 00:03 100 55 5/28/18 00:00 65 11/04/17 00:00 98.5 64 5 187/84 (118) 99 11/04/17 00:00 64 11/03/17 22:00 66 11/03/17 20:30 100 65 11/03/17 20:00 65 11/03/17 20:00 65 11/03/17 20:00 98.7 65 13 182/86 (118) 95 11/03/17 18:00 63 11/03/17 16:00 70 11/03/17 16:00 98.1 70 11 164/82 (109) 93 11/03/17 16:00 65 11/03/17 14:21 95 65 11/03/17 14:00 70 11/03/17 13:00 65 11/03/17 12:00 98.2 63 14 161/76 (104) 91 Laboratory Tests Test 11/02/17 13:28 11/03/17 05:45 11/04/17 03:12 White Blood Count 9.1 TH/MM3 8.5 TH/MM3 11.5 TH/MM3 Red Blood Count 3.57 MIL/MM3 3.56 MIL/MM3 3.75 MIL/MM3 Hemoglobin 11.2 GM/DL 11.1 GM/DL 11.7 GM/DL Hematocrit 31.9 % 32.2 % 33.9 % Mean Corpuscular Volume 89.4 FL 90.6 FL 90.6 FL Mean Corpuscular Hemoglobin 31.5 PG 31.3 PG 31.1 PG Mean Corpuscular Hemoglobin Concent 35.2 % 34.6 % 34.3 % Red Cell Distribution Width 12.9 % 13.0 % 13.3 % Platelet Count 125 TH/MM3 149 TH/MM3 183 TH/MM3 Mean Platelet Volume 10.7 FL 10.7 FL 10.1 FL Neutrophils (%) (Auto) 86.0 % 90.8 % Lymphocytes (%) (Auto) 6.1 % 3.9 % Monocytes (%) (Auto) 7.8 % 5.0 % Eosinophils (%) (Auto) 0.0 % 0.1 % Basophils (%) (Auto) 0.1 % 0.2 % Neutrophils # (Auto) 7.8 TH/MM3 10.4 TH/MM3 Lymphocytes # (Auto) 0.6 TH/MM3 0.4 TH/MM3 Monocytes # (Auto) 0.7 TH/MM3 0.6 TH/MM3 Eosinophils # (Auto) 0.0 TH/MM3 0.0 TH/MM3 Basophils # (Auto) 0.0 TH/MM3 0.0 TH/MM3 CBC Comment AUTO DIFF AUTO DIFF DIFF FINAL Differential Total Cells Counted 100 100 Neutrophils % (Manual) 87 % 85 % Band Neutrophils % 5 % 4 % Lymphocytes % 3 % 5 % Monocytes % 1 % 6 % Neutrophils # (Manual) 8.7 TH/MM3 7.6 TH/MM3 Metamyelocytes 3 % Myelocytes 1 % Nucleated Red Blood Cells 2 /100 WBC Differential Comment FINAL DIFF MANUAL FINAL DIFF MANUAL Atypical Lymphocytes % Toxic Granulation 1+ 1+ Dohle Bodies PRESENT Platelet Estimate LOW LOW Platelet Morphology Comment NORMAL ENLARGED Basophilic Stippling FAINT Laboratory Tests Test 11/03/17 05:45 11/04/17 03:12 Blood Urea Nitrogen 50 MG/DL 46 MG/DL Creatinine 1.40 MG/DL 1.23 MG/DL Random Glucose 142 MG/DL 117 MG/DL Total Protein 5.2 GM/DL 4.9 GM/DL Albumin 1.9 GM/DL 1.8 GM/DL Calcium Level 7.3 MG/DL 7.2 MG/DL Phosphorus Level 3.2 MG/DL 3.9 MG/DL Magnesium Level 2.4 MG/DL 2.4 MG/DL Alkaline Phosphatase 60 U/L 58 U/L Aspartate Amino Transf (AST/SGOT) 67 U/L 51 U/L Alanine Aminotransferase (ALT/SGPT) 64 U/L 58 U/L Total Bilirubin 1.9 MG/DL 1.7 MG/DL Sodium Level 142 MEQ/L 146 MEQ/L Potassium Level 4.0 MEQ/L 3.6 MEQ/L Chloride Level 102 MEQ/L 104 MEQ/L Carbon Dioxide Level 32.1 MEQ/L 32.0 MEQ/L Anion Gap 8 MEQ/L 10 MEQ/L Estimat Glomerular Filtration Rate 50 ML/MIN 59 ML/MIN Protein Corrected Calcium 8.3 MG/DL 8.4 MG/DL Total Creatine Kinase 1112 U/L Creatine Kinase MB 0.6 NG/ML Creatine Kinase MB % 0.1 % Microbiology Date/Time Source Procedure Growth Status 11/04/17 05:08 Stool Stool Stool Occult Blood (NUBIA) - Final HEMOCCULT POSITIVE Complete Microbiology Date/Time Source Procedure Growth Status 10/30/17 20:38 Blood Peripheral Aerobic Blood Culture - Preliminary NO GROWTH IN 2 DAYS Resulted 10/30/17 20:38 Blood Peripheral Anaerobic Blood Culture - Preliminary NO GROWTH IN 2 DAYS Resulted 10/30/17 20:33 Blood Peripheral Aerobic Blood Culture - Preliminary NO GROWTH IN 2 DAYS Resulted 10/30/17 20:33 Blood Peripheral Anaerobic Blood Culture - Preliminary NO GROWTH IN 2 DAYS Resulted 11/01/17 11:05 Fluid Other Gram Stain Pending Received 11/01/17 11:05 Fluid Other Body Fluid Culture Pending Received 10/31/17 10:40 Sputum Endotracheal Gram Stain - Final Resulted 10/31/17 10:40 Sputum Endotracheal Sputum Culture - Preliminary HEAVY GROWTH NORMAL RESPIRATORY KAREEM... Resulted PHYSICAL EXAMINATION: GENERAL: On the ventilator. Unresponsive. HEENT: Head atraumatic. No icterus. NECK: Supple without adenopathy. No swelling. LUNGS: Clear breath sounds. HEART: irregular rate and rhythm. No audible murmurs. ABDOMEN: Obese, distended, cholecystostomy tube in place with biliary drainage. EXTREMITIES: No clubbing or cyanosis or edema. Left foot is currently warm. Not appearing dusky today. Doppler pulses obtained. SKIN: No diffuse rash. NEUROLOGIC: Unable to fully assess. PSYCHIATRIC: Calm and cooperative. IMPRESSION: 1. Severe sepsis due to E. coli very likely secondary to acute cholecystitis. Cholangitis. 2. Bacteriuria with less than 10,000 Enterococcus faecalis 3. Pneumonia. Bilateral airspace disease on chest x-ray. 4. Leukocytosis secondary to infection. WBC improved. 5. Acute kidney disease likely resulting from sepsis. Renal function improving. 6. Acute respiratory failure. RECOMMENDATIONS: 1. Continue ampicillin/sulbactam. Change the dose to 3 g IV every 6 hours.. 2. Monitor temperature 3. Monitor the white blood cell count. 4. Follow the clinical status. Charles Morales MD November 04, 2017 12:09
[2017-11-04] MEDS ORDERED: FUROSEMIDE 40 MG/4 ML VIAL IV PUSH ONE (14:00)
--- NOTE | 2017-11-04 14:40 | HHI.CCPN ---
Subjective Remarks/Hospital Course 67-year-old male presents to the emergency department via EMS for evaluation of shortness of breath and pain and numbness to the left leg. Patient believes that he is shortness of breath is related to the pain in his leg. He cannot feel his leg from his groin down. He denies any history of the same. He does report history of COPD. He denies any known fevers or chills. He denies chest pain. Patient received 1 L normal saline bolus via EMS. Patient denies any history of bleeding or blood clots. No recent surgery or travel. No hemoptysis. No history of DVT/PE. He denies leg edema. Patient states the pain is 10/10 to the left leg. No exacerbating or alleviating factors. Moderate severity. 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 The right inflow is heavily diseased as well. The patient was evaluated by vascular surgeon distribution center manager and was immediately started on heparin drip. SUBJ 10/29: Remains critically ill, encephalopathy. 4 out of 4 bottles positive for GNR. I will change Rocephin to Zosyn renally dosed to cover for Pseudomonas also. Continue azithromycin. Creatinine still elevated but slightly improved. WBC count slightly increased 17.2 now with 24% bands. Source of GNR sepsis could be either UTI or pneumonia. Will consult ID as well. Remains on IV heparin for acute left limb ischemia 10/30: platelets falling >50% again today. Cr still rising, but could be ATN/ contrast nephropathy. blood cultures growing e. coli by PCR, full speciation to follow. urine culture pending. discussed case with Dr. Lopez, will stop heparin , start argatroban and send HIT/CHARLEEN. denies complaints for me, but does have objective tenderness on palpation, RUQ. 10/31: Emergently intubated today a.m. by Dr. Puckett for worsening mental status, encephalopathy and worsening respiratory failure. Prior to intubation Dr. Puckett ' exam revealed right upper quadrant tenderness. Ultrasound of the gallbladder yesterday showed gallstones. Overnight Argatroban was supratherapeutic and was held, platelet count also dropped to 30,000, HIT screen is pending. Postintubation bilateral pupils are reactive but unequal. Will repeat CT of the head, CT abdomen pelvis. BUN 49/Creat 2.7, leukocytosis persisting 11/01: no improvements. ct abd/pelvis with evidence of possible choledocholithiasis. perc doug tube planned for this AM. on esmolol infusion for afib RVR. fio2 increased to 70%. 11/02: Sodium bicarbonate infusion continued per nephrology in the setting of rhabdomyolysis serial creatinine kinase pending. Cholecystostomy drain placement 100 cc overnight. Continued thrombocytopenia, CBC, serotonin release assay pending. Plan for reinitiation of heparin awaiting GI consultation for possible invasive procedures prior to restarting heparin. Patient sinus rhythm with occasional PAC's. 11/03: No acute events overnight. Sodium bicarbonate infusion discontinued this a.m. had any improved this a.m.. Chest x-ray showed worsening consolidation, FiO2 requirements were increased to 65% during the night. CPAP trials on hold currently. Biliary drainage from cholecystostomy tube revealing gram-negative rods. The patient continues on antibiotics. Bilateral dorsalis pedis pulses monophasic signals by Doppler. Heparin infusion reinitiated. 11/04: Sodium bicarbonate infusion discontinued at 7 AM yesterday. Chest x-ray worsening consolidation versus pleural effusions. FiO2 slightly decreased to 60 %, ABG improving. Pending quantification via ultrasound of pleural fluid in am. Lasix 40mg x1 additonal dose provided today . PPN discontinued discussed with Dr. Colon tube feeds initiated at [facility]. Dietary consult ordered. Objective Vital Signs Date Time Temp Pulse Resp B/P (MAP) Pulse Ox O2 Delivery O2 Flow Rate FiO2 11/04/17 12:00 51 11/04/17 12:00 98.6 17 169/76 (107) 97 11/04/17 11:41 60 11/01/17 00:42 15.00 Intake and Output 11/04/17 11/04/17 11/05/17 08:00 16:00 00:00 Intake Total 200 ml Output Total 900 ml Balance -700 ml Result Diagram: 11/04/17 0312 11/04/172 Other Results Microbiology Date/Time Source Procedure Growth Status 11/04/17 05:08 Stool Stool Stool Occult Blood (NUBIA) - Final HEMOCCULT POSITIVE Complete Laboratory Tests Test 11/03/17 14:50 11/04/17 05:10 Blood Gas Puncture Site RT RADIAL LT RADIAL Blood Gas Patient Temperature 98.6 98.6 Blood Gas HCO3 32 mmol/L (22-26) 33 mmol/L (22-26) Blood Gas Base Excess 9.5 mmol/L (-2-2) 9.3 mmol/L (-2-2) Blood Gas Oxygen Saturation 91 % (90-100) 93 % (90-100) Arterial Blood pH 7.58 (7.380-7.420) 7.51 (7.380-7.420) Arterial Blood Partial Pressure CO2 35 mmHg (38-42) 42 mmHg (38-42) Arterial Blood Partial Pressure O2 60 mmHg (61-120) 75 mmHg (61-120) Arterial Blood Oxygen Content 15.7 Vol % (12.0-20.0) 14.7 Vol % (12.0-20.0) Arterial Blood Carboxyhemoglobin 1.1 % (0-4) 1.0 % (0-4) Arterial Blood Methemoglobin 1.1 % (0-2) 1.5 % (0-2) Blood Gas Hemoglobin 12.3 G/DL (12.0-16.0) 11.2 G/DL (12.0-16.0) Oxygen Delivery Device VENTILATOR VENTILATOR Blood Gas Ventilator Setting PRVC/AC Blood Gas Inspired Oxygen 65 % 60 % Imaging Last Impressions Chest X-Ray 11/03/17 0600 Signed Impressions: CONCLUSION: Worsening parenchymal consolidation and small effusions at each lung base. Percutaneous Cholangiogram 11/01/17 Signed Impressions: CONCLUSION: 1. Uncomplicated percutaneous cholecystostomy as above. Abdomen/Pelvis CT 11/01/17 Signed Impressions: CONCLUSION: 1. Gallstones. There do appear to be areas of increased density within the com mon bile duct concerning for choledocholithiasis. 2. 4 mm nonobstructing left renal stone. 3. Sigmoid colon diverticula. 4. Bibasilar areas of consolidation or atelectasis being worse on the left wit h mild bilateral pleural effusions. Renal Ultrasound 10/31/17 Signed Impressions: CONCLUSION: 1. No hydronephrosis. 2. Increased cortical echogenicity consistent with medical renal disease. Head Magnetic Resonance Angiography 10/31/17 Signed Impressions: CONCLUSION: 1. Unremarkable MRA of the brain. Head CT 10/31/17 Signed Impressions: CONCLUSION: 1. Negative CT Head non contrast. 2. No evidence of acute infarct, hemorrhage, mass or edema. Brain MRI 10/31/17 Signed Impressions: CONCLUSION: 1. Senescent changes with minimal periventricular ischemic white matter demyel ination. 2. No acute abnormality. Specifically, no acute infarction, mass or hemorrhage . Gall Bladder Ultrasound 10/30/17 Signed Impressions: CONCLUSION: 1. Fatty infiltration of the liver. 2. Multiple stones in the gallbladder. No biliary tract obstruction. Extremity Arterial Study 10/28/17 Signed Impressions: CONCLUSION: 1. Abnormal ABIs, left greater than right. The left DAVID is significantly dimin ished at 0.14. Aorta w/Runoff CTA 10/28/17 Signed Impressions: Service Date/Time: Saturday, October 28, 2017 21:50 - CONCLUSION: 1. Acute occlusion of the left inflow with concern for short segment occlusion involving the distal right inflow. This raises concern for an embolic event. 2. Right lower extremity shows scattered disease throughout the common femoral artery, SFA and [id number] popliteal artery with three-vessel runoff to the foot. 3. Left lower extremity with reconstitution of the common femoral artery with diseased out flow and two vessel runoff to the foot as detailed above. 4. 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 5. Hepatic steatosis. 6. Cholelithiasis. Juanjose Mckeon Jr., MD Last Impressions Percutaneous Cholangiogram 11/01/17 Signed Impressions: CONCLUSION: 1. Uncomplicated percutaneous cholecystostomy as above. Abdomen/Pelvis CT 11/01/17 Signed Impressions: CONCLUSION: 1. Gallstones. There do appear to be areas of increased density within the com mon bile duct concerning for choledocholithiasis. 2. 4 mm nonobstructing left renal stone. 3. Sigmoid colon diverticula. 4. Bibasilar areas of consolidation or atelectasis being worse on the left wit h mild bilateral pleural effusions. Renal Ultrasound 10/31/17 Signed Impressions: CONCLUSION: 1. No hydronephrosis. 2. Increased cortical echogenicity consistent with medical renal disease. Head Magnetic Resonance Angiography 10/31/17 Signed Impressions: CONCLUSION: 1. Unremarkable MRA of the brain. Head CT 10/31/17 Signed Impressions: CONCLUSION: 1. Negative CT Head non contrast. 2. No evidence of acute infarct, hemorrhage, mass or edema. Chest X-Ray 10/31/17 Signed Impressions: CONCLUSION: Satisfactory position of endotracheal and nasogastric tubes. Increasing airspace disease and bilateral effusions. Brain MRI 10/31/17 Signed Impressions: CONCLUSION: 1. Senescent changes with minimal periventricular ischemic white matter demyel ination. 2. No acute abnormality. Specifically, no acute infarction, mass or hemorrhage . Gall Bladder Ultrasound 10/30/17 Signed Impressions: CONCLUSION: 1. Fatty infiltration of the liver. 2. Multiple stones in the gallbladder. No biliary tract obstruction. Extremity Arterial Study 10/28/17 Signed Impressions: CONCLUSION: 1. Abnormal ABIs, left greater than right. The left DAVID is significantly dimin ished at 0.14. Aorta w/Runoff CTA 10/28/17 Signed Impressions: Service Date/Time: Saturday, October 28, 2017 21:50 - CONCLUSION: 1. Acute occlusion of the left inflow with concern for short segment occlusion involving the distal right inflow. This raises concern for an embolic event. 2. Right lower extremity shows scattered disease throughout the common femoral artery, SFA and [id number] popliteal artery with three-vessel runoff to the foot. 3. Left lower extremity with reconstitution of the common femoral artery with diseased out flow and two vessel runoff to the foot as detailed above. 4. 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 5. Hepatic steatosis. 6. Cholelithiasis. Juanjose Mckeon Jr., MD Last 24 hours Impressions Chest X-Ray 10/28/172010 Signed Impressions: Service Date/Time: Saturday, October 28, 2017 20:20 - CONCLUSION: Left lower lobe infiltrate. Mild cardiomegaly. Juanjose Mckeon Jr., MD Objective Remarks GENERAL: This is a well-developed well-nourished middle-aged male, currently intubated, sedated, critically ill SKIN: Warm and dry. HEAD: Normocephalic. ENT: No scleral icterus. No injection or drainage. Pupils are now equal at 3mm, reactive. Orotracheally intubated NECK: Supple, trachea midline. No JVD. CARDIOVASCULAR: Regular rate regular rhythm. RESPIRATORY: Intubated. PRVC/AC. Air entry equal no significant wheezes. fio2 65%. GASTROINTESTINAL: Abdomen soft, mildly distended. no guarding. This ostomy tube draining bilious fluid MUSCULOSKELETAL: No cyanosis, or edema. Left foot cool to touch. Bilateral DP with Doppler NEURO EXAM: Intubated, RASS -2. Withdraws to pain. does not follow commands. A/P Assessment and Plan Assessment: 67yM with limb ischemia, severe sepsis and associated multiorgan failure including shock liver, acute kidney injury. remains critically ill and organ failure worsening. Now with acute respiratory failure and worsening encephalopathy. HIT negative. holding anticoagulation. plan for percutaneous cholecystostomy tube today. platelets 70k today. will need to restart heparin post procedure. GI consulted, may need ERCP as well. in terms of hypoxic respiratory failure, likely ARDS at this point. ASSESSMENT/PLAN: NEURO: Acute metabolic encephalopathy -Intubated for airway protection and worsening respiratory failure -Propofol for sedation and vent synchrony -No sedation vacation until metabolic encephalopathy and sepsis improved -10/31 CT of the head- negative RESP: Acute hypoxemic respiratory failure COPD exacerbation Left lower lobe pneumonia ARDS -Emergently intubated and placed on mechanical ventilation 10/31/2017 -PRVC/AC, DuoNeb scheduled and as needed, ventilator bundle, head of bed elevation to 30 -Steroids IV. Pulmonary consultation: Dr. Johnson following - CT mild B/L pleural effusion -Continue Zosyn -Ultrasound quantification of fluid schedule for 11/05, chest x-ray worsening effusions versus consolidation CVS: Acute on chronic left limb ischemia Afib with RVR HTN -CTA showed severe aorto-iliac occlusive disease with left iliac thrombosis -Significant calcifications and peripheral vascular disease -2D echo: EF 50%, no significant valvular lesions. left sided pleural effusion -Argatroban started 10/30, placed on hold due to worsening mental status, supratherapeutic -HIT screen negative. CHARLEEN still pending -Esmolol infusion discontinued 11/02. Toprol discontinued. Labetalol 100 mg twice daily initiated. -EKG normal sinus rhythm GI Acute hepatic dysfunction Hyperbilirubinemia Transaminitis Acute Choledocholithiasis -Trend LFTs, gallbladder ultrasound showed multiple gallstones -Most likely secondary to severe sepsis. -Repeat CT abdomen/pelvis 10/31: c/w choledocholithiasis - plan for perc doug tube today - GI consult. may need ERCP as well. 11/02-Dr. Packer, no invasive intervention at this time -PPN initiated 11/03. Discussion with Dr. Colon will initiate tube feeds Jevity 1.5 at trickle today Acute kidney injury Acute metabolic acidosis -Nephrology following -Sodium bicarbonate infusion discontinued 11/03. -Hydration, Strict I's and O's -Continue Lasix 40 mg IV daily ID E COLI bacteremia/severe sepsis Enterococcus in the urine: possible colonization vs. UTI. Acute Choledocholithiasis Biliary fluid gram-negative rods -Source of bacteremia could be pneumonia or UTI or cholecystitis -Zosyn - unclear if enterococcus is clinical UTI or colonization. -ID following -Follow-up sputum and repeat blood cultures, urine culture -Gallbladder u/s, shows gallstones HEME: acute thrombocytopenia: improving. -Most likely etiology is sepsis with consumption - HIT negative. Obtain serotonin release assay today - S/P doug tube 11/01 -Heparin infusion reinitiated -Resume aspirin DVT GI prophylaxis -Vickey's and SCDs -Heparin infusion -Pepcid Dispo: needs to remain in ICU. all organ systems worsening, very critical with prognosis guarded. Critical Care: The total critical care time was 35 minutes. Time to perform other separately billable procedures was not included in the critical care time. Patient remains critically ill with septic shock, multiorgan failure, choledocholithiasis, near-critical limb ischemia. Physician Skylar Lang MD November 04, 2017 14:40
--- NOTE | 2017-11-04 18:09 | HHI.PR ---
Subjective Remarks 67 YOWM with COPD,Sepsis, ischemia of leg Developed RF, intubated Plt decreased sedated On PRVC AC, Fi02 60% No more mucous plugs Had extra dose of diuretic Objective Vital Signs Vital Signs Date Time Temp Pulse Resp B/P (MAP) Pulse Ox O2 Delivery O2 Flow Rate FiO2 11/04/17 16:00 99.1 64 15 153/70 (97) 99 11/04/17 16:00 64 11/04/17 16:00 60 11/04/17 15:44 98 60 11/04/17 14:00 50 11/04/17 12:00 51 11/04/17 12:00 60 11/04/17 12:00 98.6 51 17 169/76 (107) 97 11/04/17 11:41 97 60 11/04/17 10:00 50 11/04/17 08:12 94 60 11/04/17 08:00 60 11/04/17 08:00 48 11/04/17 08:00 98.5 48 16 169/79 (109) 95 11/04/17 06:00 50 11/04/17 04:22 92 60 11/04/17 04:00 65 11/04/17 04:00 49 11/04/17 04:00 98.7 49 9 138/65 (89) 91 11/04/17 02:00 51 11/04/17 02:00 64 11/04/17 00:03 100 55 11/04/17 00:00 65 11/04/17 00:00 98.5 64 5 187/84 (118) 99 11/04/17 00:00 64 11/03/17 22:00 66 11/03/17 20:30 100 65 11/03/17 20:00 65 11/03/17 20:00 65 11/03/17 20:00 98.7 65 13 182/86 (118) 95 I/O 11/03/17 11/03/17 11/03/17 11/04/17 11/04/17 11/04/17 07:00 15:00 23:00 07:00 15:00 23:00 Intake Total 296 ml 1067 ml 530 ml 200 ml Output Total 980 ml 1450 ml 475 ml 900 ml Balance -684 ml -383 ml 55 ml -700 ml IV Total 296 ml 1067 ml 410 ml 100 ml Tube Irrigant 120 ml 100 ml Output Urine Total 850 ml 1450 ml 350 ml 750 ml Drainage Total 130 ml 125 ml 150 ml # Bowel Movements 0 1 Result Diagram: 11/04/1731111/04/17311 Objective Remarks GENERAL: WBWN WM, On Vent, sedated SKIN: Warm and dry. HEAD: Normocephalic. EYES: No scleral icterus. No injection or drainage. NECK: Supple, trachea midline. No JVD or lymphadenopathy. CARDIOVASCULAR: Regular rate and rhythm without murmurs, gallops, or rubs. RESPIRATORY: Breath sounds equal bilaterally. No accessory muscle use. GASTROINTESTINAL: Abdomen soft, non-tender, nondistended. MUSCULOSKELETAL: No cyanosis, or edema. Cold left leg BACK: Nontender without obvious deformity. No CVA tenderness. A/P Assessment and Plan IMPRESSION: 1. Sepsis. 2. Chronic obstructive pulmonary disease, mild exacerbation. 3. Left basilar infiltrate. 4. Urinary tract infection 5. Encephalopathy. 6. Cold left leg. 7. Thrombocytopenia. 8. VDRF PLAN: Vent supportPRVC AC Sedation with Diprivan for comfort and Vent synchrony Cont Abx per ID Monitor Plt count Mucomyst Nebs Monitor renal functions Dennis Johnson MD November 04, 2017 18:09
[2017-11-04] MEDS: LABETALOL HCL 100 MG TAB PO SCH (20:24)
[2017-11-04] MEDS ORDERED: METOPROLOL TARTRATE 25 MG TAB PO SCH (21:00)
[2017-11-05] VITALS (18 sets, daily range): BP systolic 132–167; BP diastolic 61–74; PULSE 48–65; RESP 3–19; TEMP 97.9–98.7; O2SAT 95–100
[2017-11-05] MEDS: AMPICILLIN-SULBACTAM INJ 1,500 MG in SODIUM CHLORIDE 0.9% INJ 100 ML IV SCH ×3 (00:12→11:30)
[2017-11-05] MEDS: methylPREDNISolone SOD SUCC 40 MG/1 ML VIAL IV PUSH SCH ×4 (00:12→17:00)
[2017-11-05] MEDS: PROPOFOL 1000 MG/100 ML INJ 100 ML IV PRN ×5 (01:13→20:25)
[2017-11-05] MEDS: RESP: ALBUTEROL 2.5 MG/IPRATROPIUM 0.5 MG NEB (SCH) NEB ×3 (03:25→11:49)
[2017-11-05] MEDS: RESP: ACETYLCYSTEINE 20% 10 ML NEB NEB SCH (03:26)
[2017-11-05] MEDS: HEPARIN-D5W 25,000 U/250 ML 250 ML IV PRN (03:58)
--- NOTE | 2017-11-05 04:58 | RADRPT ---
EXAM DATE: 11/05/2017 4:43 AM EDT AGE/SEX: 67 years / Male INDICATIONS: Short of breath. CLINICAL DATA: This is the patient's subsequent encounter. Patient reports that signs and symptoms h ave been present for 1 week and indicates a pain score of 0/10. MEDICAL/SURGICAL HISTORY: Chronic obstructive pulmonary disease. Hiatal hernia. . Hernia repai r. COMPARISON: [facility] [place], CHEST SINGLE AP, 11/04/2017. . FINDINGS: There is improvement in aeration of lungs. Small bilateral pleural effusions are suspected with diffu se pulmonary edema. ET tube and NG tube have not changed. Left lung base opacity is present may be du e to a combination of consolidation and or pleural effusion. CONCLUSION: Overall slight improvement in the aeration of the lungs. Electronically signed by: Talya Sanders MD 11/05/2017 4:57 AM EDT
[2017-11-05] MEDS: hydrALAZINE HCL 25 MG TAB PO SCH ×3 (05:05→21:33)
[2017-11-05] MEDS: SODIUM CHLORIDE 0.9% FLUSH 10 ML FLUSH IV FLUSH SCH ×2 (07:59→20:03)
[2017-11-05] MEDS: ASPIRIN 81 MG CHEW TAB CHEW SCH (07:59)
[2017-11-05] MEDS: FAMOTIDINE 20 MG/2 ML VIAL IV PUSH SCH ×2 (07:59→20:03)
[2017-11-05] MEDS: DOCUSATE SODIUM 50 MG/SENNA 8.6 MG TAB PO SCH ×2 (07:59→20:03)
[2017-11-05] MEDS: LABETALOL HCL 100 MG TAB PO SCH ×2 (07:59→20:03)
[2017-11-05] MEDS: CHLORHEXIDINE 0.12% (ORAL KIT) 15 ML CUP MT SCH ×2 (08:00→20:03)
[2017-11-05] MEDS: FUROSEMIDE 40 MG/4 ML VIAL IV PUSH SCH (08:00)
--- NOTE | 2017-11-05 09:35 | PD.VS.PN ---
Subjective Subjective/Hospital Course Pt remains intubated. Moving all extremities according to waitstaff - intubated and sedated improving from biliary sepsis after drain Hep antibody negative, so heparin gtt reinstituted Objective Vitals/I&O Date Time Temp Pulse Resp B/P (MAP) Pulse Ox O2 Delivery O2 Flow Rate FiO2 11/05/17 07:31 98 60 11/05/17 06:00 51 11/05/17 04:08 100 60 11/05/17 04:00 98.2 63 15 132/61 (84) 100 11/05/17 04:00 60 11/05/17 04:00 63 11/05/17 02:00 51 11/05/17 01:06 95 60 11/05/17 00:00 98.6 53 3 152/70 (97) 96 11/05/17 00:00 53 11/05/17 00:00 60 11/04/17 22:00 52 11/04/17 20:06 96 60 11/04/17 20:00 51 11/04/17 20:00 60 11/04/17 20:00 98.4 51 18 175/77 (109) 96 11/04/17 18:00 52 11/04/17 16:00 99.1 64 15 153/70 (97) 99 11/04/17 16:00 64 11/04/17 16:00 60 11/04/17 15:44 98 60 11/04/17 14:00 50 11/04/17 12:00 51 11/04/17 12:00 60 11/04/17 12:00 98.6 51 17 169/76 (107) 97 11/04/17 11:41 97 60 11/04/17 10:00 50 11/05/17 11/05/17 11/05/17 07:00 15:00 23:00 Intake Total 833.0 ml Output Total 1010 ml Balance -177.0 ml Physical Exam intubated, sedated feet warm no palpable pulses Laboratory Laboratory Tests Test 11/05/17 09:11 Activated Partial Thromboplast Time 48.8 Date/Time Source Procedure Growth Status 10/30/17 20:38 Blood Peripheral Aerobic Blood Culture - Final NO GROWTH IN 5 DAYS Complete 10/30/17 20:38 Blood Peripheral Anaerobic Blood Culture - Final NO GROWTH IN 5 DAYS Complete 11/01/17 11:05 Fluid Other Gram Stain - Final Complete 11/01/17 11:05 Fluid Other Body Fluid Culture - Final Complete 11/04/17 05:08 Stool Stool Stool Occult Blood (NUBIA) - Final HEMOCCULT POSITIVE Complete 10/31/17 10:40 Sputum Endotracheal Gram Stain - Final Complete 10/31/17 10:40 Sputum Endotracheal Sputum Culture - Final HEAVY GROWTH NORMAL RESPIRATORY KAREEM Complete 10/29/17 00:00 Urine Catheterized Urine Urine Culture - Final Enterococcus Faecalis Complete Imaging Last 48 hours Impressions Chest X-Ray 11/05/17 0600 Signed Impressions: CONCLUSION: Overall slight improvement in the aeration of the lungs. Chest X-Ray 11/04/17 06 Signed Impressions: CONCLUSION: No appreciable change. Assessment and Plan Plan Acute on chronic limb ischemia, motor intact Intubated and getting treated with antibiotics and biliary drainage 1. Continue hep gtt and neurovascular checks. Ultimately may need inflow procedure (ax-fem) but nothing in short term. 2. In my opinion, no need for HIDA given pre-emptive biliary drain. 3. Continue vent wean, antibiotics per primary service Please call with any questions. Saurav Lopez MD FACS RPVI shake packer [facility] at [facility] [phone] Saurav Lopez MD November 05, 2017 09:35
[2017-11-05] MEDS: RESP: ACETYLCYSTEINE 20% 30 ML NEB NEB SCH ×3 (10:00→20:49)
[2017-11-05 11:16] LABS: ALBUMIN 1.9 GM/DL (3.4-5.0); BICARBONATE 29.7 MEQ/L (21.0-32.0); CALCIUM 7.4 MG/DL (8.5-10.1); CALCIUM-PROTEIN CORRECTED 8.6 MG/DL (8.5-10.1); CREATININE 1.23 MG/DL (0.60-1.30); MAGNESIUM 2.4 MG/DL (1.5-2.5)
--- NOTE | 2017-11-05 12:02 | HHI.IDPN ---
Note Infectious Disease Note Patient remains on the ventilator. 60% FIO2. Intubated on 10/31. Bradycardic. Sedated. Responding to commands. Afebrile. WBC increased. Cholecystostomy tube in place has biliary fluid. 67-year-old white male who presented to the Emergency Department with shortness of breath and left leg pain. In the emergency Department his heart rate was 102 and temperature was 100.7. White blood cell count was elevated at 13.3 and lactic acid level was 7.4. Chest x-ray showed left lung infiltrate. Urinalysis showed 28 white cells with white blood cell clumps. PAST MEDICAL HISTORY: COPD, coronary artery disease, hernia repair. ALLERGIES: NO KNOWN DRUG ALLERGIES. Current Medications Medications (Trade) Dose Ordered Sig/Olesya Route PRN Reason Start Time Stop Time Status Last Admin Dose Admin Sodium Chloride (NS Flush) 2 ml UNSCH PRN IV FLUSH FLUSH AFTER USING IV ACCESS 10/28/17 22:15 Sodium Chloride (NS Flush) 2 ml BID IV FLUSH 10/29/17 09:00 11/05/17 07:59 Acetaminophen (Tylenol) 650 mg Q6H PRN PO PAIN 1-5 AND/OR FEVER >101F 10/28/17 22:15 Hydromorphone HCl (Dilaudid Pf Inj) 1 mg Q4H PRN IV PAIN SCALE 6 TO 10 10/28/17 22:30 10/30/17 17:59 Famotidine (Pepcid Inj) 10 mg Q12HR IV PUSH 10/29/17 09:00 11/05/17 07:59 Ondansetron HCl (Zofran Inj) 4 mg Q6H PRN IV PUSH NAUSEA OR VOMITING 10/28/17 22:15 Temazepam (Restoril) 15 mg HS PRN PO INSOMNIA 10/28/17 22:15 Future Hold Albuterol/ Ipratropium (Duoneb Neb) 1 ampule Q2HR NEB PRN INH WHEEZING 10/28/17 22:15 10/31/17 05:34 Miscellaneous Information ([facility] Nursing Information) 1 [id number] XX 10/28/17 22:15 10/28/17 22:15 Chlorhexidine Gluconate (Chlorhexidine 2% Cloth) Taper DAILY@04 TOP 10/29/17 04:00 10/25/18 03:59 11/04/17 04:00 Chlorhexidine Gluconate (Chlorhexidine 2% Cloth) 3 pack UNSCH PRN TOP HYGIENIC CARE 10/28/17 22:15 Senna/Docusate Sodium (Elvira-Colace) 1 tab BID PO 10/29/17 09:00 11/05/17 07:59 Magnesium Hydroxide (Milk Of Magnesia Liq) 30 ml Q12H PRN PO Mild constipation 10/28/17 22:15 Sennosides (Senokot) 17.2 mg Q12H PRN PO Moderate constipation 10/28/17 22:15 Bisacodyl (Dulcolax Supp) 10 mg DAILY PRN RECTAL SEVERE CONSITIPATION 10/28/17 22:15 Lactulose (Lactulose Liq) 30 ml DAILY PRN PO SEVERE CONSITIPATION 10/28/17 22:15 Methylprednisolone Sodium Succinate (SoluMEDROL INJ) 40 mg Q6HR IV PUSH 10/29/17 00:00 11/05/17 11:30 Diltiazem HCl (Cardizem Cd) 240 mg DAILY PO 10/29/17 09:00 Future Hold 10/30/17 09:02 Aspirin (Aspirin Chew) 81 mg DAILY CHEW 10/29/17 11:45 Future hold 11/05/17 07:59 Terbutaline Sulfate (Brethine Inj) 1 mg UNSCH PRN SQ For Extravasation 10/31/17 06:15 Propofol 100 ml @ 2.73 mls/hr TITRATE PRN IV SEDATION 10/31/17 07:00 11/05/17 11:32 Chlorhexidine Gluconate (Peridex 0.12% Liq) 15 ml BID@08,20 MT 10/31/17 08:00 11/05/17 08:00 Albuterol/ Ipratropium (Duoneb Neb) 1 ampule Q4HR NEB NEB 11/01/17 12:00 11/05/17 07:34 Hydralazine HCl (Apresoline Inj) 20 mg Q4H PRN IV PUSH SBP>160, DBP>90 11/02/17 14:00 Clonidine (Catapres) 0.1 mg Q6H PRN PO SBP>160, DBP>90 11/02/17 23:45 11/04/17 02:35 Heparin Sodium/ Dextrose 250 ml @ 12 mls/hr TITRATE PRN IV Coagulation Management 11/03/17 07:00 11/05/17 03:58 Hydralazine HCl (Apresoline) 25 mg Q8HR PO 11/03/17 14:00 11/05/17 05:05 Furosemide (Lasix Inj) 40 mg DAILY IV PUSH 11/03/17 13:00 11/05/17 08:00 Ampicillin Sodium/ Sulbactam Sodium 1500 mg/Sodium Chloride 100 ml @ 200 mls/hr Q6H IV 11/03/17 19:00 11/05/17 11:30 Labetalol HCl (Trandate) 100 mg Q12HR PO 11/04/17 21:00 11/05/17 07:59 Acetylcysteine (Mucomyst 20% Neb) 2 ml Q6HR NEB NEB 11/05/17 10:00 SOCIAL HISTORY: No tobacco. The patient quit smoking in 07/2017. No alcohol and no illicit drugs. The patient takes care of his elderly father at home who has dementia. FAMILY HISTORY: Noncontributory. OBJECTIVE: Vital Signs Date Time Temp Pulse Resp B/P (MAP) Pulse Ox O2 Delivery O2 Flow Rate FiO2 11/05/17 10:00 48 11/05/17 08:00 60 11/05/17 08:00 49 11/05/17 08:00 98.3 49 16 144/67 (92) 97 11/05/17 07:31 98 60 11/05/17 06:00 51 11/05/17 04:08 100 60 11/05/17 04:00 98.2 63 15 132/61 (84) 100 11/05/17 04:00 60 11/05/17 04:00 63 11/05/17 02:00 51 11/05/17 01:06 95 60 11/05/17 00:00 98.6 53 3 152/70 (97) 96 11/05/17 00:00 53 11/05/17 00:00 60 11/04/17 22:00 52 11/04/17 20:06 96 60 11/04/17 20:00 51 11/04/17 20:00 60 11/04/17 20:00 98.4 51 18 175/77 (109) 96 11/04/17 18:00 52 11/04/17 16:00 99.1 64 15 153/70 (97) 99 11/04/17 16:00 64 11/04/17 16:00 60 11/04/17 15:44 98 60 11/04/17 14:00 50 11/04/17 12:00 51 11/04/17 12:00 60 11/04/17 12:00 98.6 51 17 169/76 (107) 97 Laboratory Tests Test 11/04/17 03:12 White Blood Count 11.5 TH/MM3 Red Blood Count 3.75 MIL/MM3 Hemoglobin 11.7 GM/DL Hematocrit 33.9 % Mean Corpuscular Volume 90.6 FL Mean Corpuscular Hemoglobin 31.1 PG Mean Corpuscular Hemoglobin Concent 34.3 % Red Cell Distribution Width 13.3 % Platelet Count 183 TH/MM3 Mean Platelet Volume 10.1 FL Neutrophils (%) (Auto) 90.8 % Lymphocytes (%) (Auto) 3.9 % Monocytes (%) (Auto) 5.0 % Eosinophils (%) (Auto) 0.1 % Basophils (%) (Auto) 0.2 % Neutrophils # (Auto) 10.4 TH/MM3 Lymphocytes # (Auto) 0.4 TH/MM3 Monocytes # (Auto) 0.6 TH/MM3 Eosinophils # (Auto) 0.0 TH/MM3 Basophils # (Auto) 0.0 TH/MM3 CBC Comment DIFF FINAL Differential Comment Laboratory Tests Test 11/04/17 03:12 11/05/17 09:11 Blood Urea Nitrogen 46 MG/DL 47 MG/DL Creatinine 1.23 MG/DL 1.23 MG/DL Random Glucose 117 MG/DL 120 MG/DL Total Protein 4.9 GM/DL 5.0 GM/DL Albumin 1.8 GM/DL 1.9 GM/DL Calcium Level 7.2 MG/DL 7.4 MG/DL Phosphorus Level 3.9 MG/DL 5.0 MG/DL Magnesium Level 2.4 MG/DL 2.4 MG/DL Alkaline Phosphatase 58 U/L 58 U/L Aspartate Amino Transf (AST/SGOT) 51 U/L 55 U/L Alanine Aminotransferase (ALT/SGPT) 58 U/L 59 U/L Total Bilirubin 1.7 MG/DL 3.0 MG/DL Sodium Level 146 MEQ/L 143 MEQ/L Potassium Level 3.6 MEQ/L 3.9 MEQ/L Chloride Level 104 MEQ/L 102 MEQ/L Carbon Dioxide Level 32.0 MEQ/L 29.7 MEQ/L Anion Gap 10 MEQ/L 11 MEQ/L Estimat Glomerular Filtration Rate 59 ML/MIN 59 ML/MIN Protein Corrected Calcium 8.4 MG/DL 8.6 MG/DL Total Creatine Kinase 383 U/L Creatine Kinase MB 0.5 NG/ML Creatine Kinase MB % 0.1 % Microbiology Date/Time Source Procedure Growth Status 11/04/17 05:08 Stool Stool Stool Occult Blood (NUBIA) - Final HEMOCCULT POSITIVE Complete Microbiology Date/Time Source Procedure Growth Status 10/30/17 20:38 Blood Peripheral Aerobic Blood Culture - Preliminary NO GROWTH IN 2 DAYS Resulted 10/30/17 20:38 Blood Peripheral Anaerobic Blood Culture - Preliminary NO GROWTH IN 2 DAYS Resulted 10/30/17 20:33 Blood Peripheral Aerobic Blood Culture - Preliminary NO GROWTH IN 2 DAYS Resulted 10/30/17 20:33 Blood Peripheral Anaerobic Blood Culture - Preliminary NO GROWTH IN 2 DAYS Resulted 11/01/17 11:05 Fluid Other Gram Stain Pending Received 11/01/17 11:05 Fluid Other Body Fluid Culture Pending Received 10/31/17 10:40 Sputum Endotracheal Gram Stain - Final Resulted 10/31/17 10:40 Sputum Endotracheal Sputum Culture - Preliminary HEAVY GROWTH NORMAL RESPIRATORY KAREEM... Resulted Chest X-Ray 11/05/17 0600 Signed Impressions: CONCLUSION: Overall slight improvement in the aeration of the lungs. Percutaneous Cholangiogram 11/01/17 0000 Signed Impressions: CONCLUSION: 1. Uncomplicated percutaneous cholecystostomy as above. Abdomen/Pelvis CT 11/01/17 0000 Signed Impressions: CONCLUSION: 1. Gallstones. There do appear to be areas of increased density within the com mon bile duct concerning for choledocholithiasis. 2. 4 mm nonobstructing left renal stone. 3. Sigmoid colon diverticula. 4. Bibasilar areas of consolidation or atelectasis being worse on the left wit h mild bilateral pleural effusions. Renal Ultrasound 10/31/17 Signed Impressions: CONCLUSION: 1. No hydronephrosis. 2. Increased cortical echogenicity consistent with medical renal disease. Head Magnetic Resonance Angiography 10/31/17 Signed Impressions: CONCLUSION: 1. Unremarkable MRA of the brain. Head CT 10/31/17 Signed Impressions: CONCLUSION: 1. Negative CT Head non contrast. 2. No evidence of acute infarct, hemorrhage, mass or edema. Brain MRI 10/31/17 Signed Impressions: CONCLUSION: 1. Senescent changes with minimal periventricular ischemic white matter demyel ination. 2. No acute abnormality. Specifically, no acute infarction, mass or hemorrhage . Gall Bladder Ultrasound 10/30/17 Signed Impressions: CONCLUSION: 1. Fatty infiltration of the liver. 2. Multiple stones in the gallbladder. No biliary tract obstruction. Extremity Arterial Study 10/28/17 Signed Impressions: CONCLUSION: 1. Abnormal ABIs, left greater than right. The left DAVID is significantly dimin ished at 0.14. Aorta w/Runoff CTA 10/28/17 Signed Impressions: Service Date/Time: Saturday, October 28, 2017 21:50 - CONCLUSION: 1. Acute occlusion of the left inflow with concern for short segment occlusion involving the distal right inflow. This raises concern for an embolic event. 2. Right lower extremity shows scattered disease throughout the common femoral artery, SFA and [id number] popliteal artery with three-vessel runoff to the foot. 3. Left lower extremity with reconstitution of the common femoral artery with diseased out flow and two vessel runoff to the foot as detailed above. 4. 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 5. Hepatic steatosis. 6. Cholelithiasis. Juanjose Mckeon Jr., MD PHYSICAL EXAMINATION: GENERAL: On the ventilator. Unresponsive. HEENT: Head atraumatic. No icterus. NECK: Supple without adenopathy. No swelling. LUNGS: Slight rhonchi. Good air movement. HEART: Bradycardic, No audible murmurs. ABDOMEN: Obese, distended, cholecystostomy tube in place with biliary drainage. EXTREMITIES: No clubbing or cyanosis or edema. Left foot is currently warm. SKIN: No diffuse rash. NEUROLOGIC: Unable to fully assess. PSYCHIATRIC: Calm. Unable to fully assess. IMPRESSION: 1. Severe sepsis due to E. coli very likely secondary to acute cholecystitis. Cholangitis. 2. Bacteriuria with less than 10,000 Enterococcus faecalis. 3. Pneumonia. Bilateral airspace disease on chest x-ray. 4. Leukocytosis secondary to infection. WBC improved. 5. Acute kidney disease likely resulting from sepsis. Renal function improving. 6. Acute respiratory failure. ? CHF. RECOMMENDATIONS: 1. Continue ampicillin/sulbactam. Change the dose to 3 g IV every 6 hours. 2. Monitor temperature 3. The white blood cell count. 4. Monitor the clinical status. I will be off starting 11/06/17, other ID MD covering in my absence. Charles Morales MD November 05, 2017 12:02
--- NOTE | 2017-11-05 12:27 | HHI.GIFU ---
Subjective Remarks Pt remains sedated and mechanically ventilated NG to trickle TF at 10 mL/hr Cholecystostomy drain noted (Annika Tenorio) Objective Vitals I&O Vital Signs Date Time Temp Pulse Resp B/P (MAP) Pulse Ox O2 Delivery O2 Flow Rate FiO2 11/05/17 12:00 50 11/05/17 12:00 60 11/05/17 11:48 98 60 11/05/17 10:00 48 11/05/17 08:00 60 11/05/17 08:00 49 11/05/17 08:00 98.3 49 16 144/67 (92) 97 11/05/17 07:31 98 60 11/05/17 06:00 51 11/05/17 04:08 100 60 11/05/17 04:00 98.2 63 15 132/61 (84) 100 11/05/17 04:00 60 11/05/17 04:00 63 11/05/17 02:00 51 11/05/17 01:06 95 60 11/05/17 00:00 98.6 53 3 152/70 (97) 96 11/05/17 00:00 53 11/05/17 00:00 60 11/04/17 22:00 52 11/04/17 20:06 96 60 11/04/17 20:00 51 11/04/17 20:00 60 11/04/17 20:00 98.4 51 18 175/77 (109) 96 11/04/17 18:00 52 11/04/17 16:00 99.1 64 15 153/70 (97) 99 11/04/17 16:00 64 11/04/17 16:00 60 11/04/17 15:44 98 60 11/04/17 14:00 50 I/O 11/04/17 11/04/17 11/04/17 11/05/17 11/05/17 11/05/17 07:00 15:00 23:00 07:00 15:00 23:00 Intake Total 200 ml 240 ml 833.0 ml Output Total 900 ml 2880 ml 1010 ml Balance -700 ml -2640 ml -177.0 ml IV Total 100 ml 100 ml 666.0 ml Tube Feeding 20 ml 107 ml Tube Irrigant 100 ml 120 ml Other 60 ml Output Urine Total 750 ml 2750 ml 900 ml Drainage Total 150 ml 130 ml 110 ml # Bowel Movements 1 0 1 Laboratory Laboratory Tests Test 11/05/17 09:11 Activated Partial Thromboplast Time 48.8 Blood Urea Nitrogen 47 Creatinine 1.23 Random Glucose 120 Total Protein 5.0 Albumin 1.9 Calcium Level 7.4 Phosphorus Level 5.0 Magnesium Level 2.4 Alkaline Phosphatase 58 Aspartate Amino Transf (AST/SGOT) 55 Alanine Aminotransferase (ALT/SGPT) 59 Total Bilirubin 3.0 Sodium Level 143 Potassium Level 3.9 Chloride Level 102 Carbon Dioxide Level 29.7 Anion Gap 11 Estimat Glomerular Filtration Rate 59 Protein Corrected Calcium 8.6 Total Creatine Kinase 383 Creatine Kinase MB 0.5 Creatine Kinase MB % 0.1 Date/Time Source Procedure Growth Status 10/30/17 20:38 Blood Peripheral Aerobic Blood Culture - Final NO GROWTH IN 5 DAYS Complete 10/30/17 20:38 Blood Peripheral Anaerobic Blood Culture - Final NO GROWTH IN 5 DAYS Complete 11/01/17 11:05 Fluid Other Gram Stain - Final Complete 11/01/17 11:05 Fluid Other Body Fluid Culture - Final Complete 11/04/17 05:08 Stool Stool Stool Occult Blood (NUBIA) - Final HEMOCCULT POSITIVE Complete 10/31/17 10:40 Sputum Endotracheal Gram Stain - Final Complete 10/31/17 10:40 Sputum Endotracheal Sputum Culture - Final HEAVY GROWTH NORMAL RESPIRATORY TERRELL Complete 10/29/17 00:00 Urine Catheterized Urine Urine Culture - Final Enterococcus Faecalis Complete Imaging Last Impressions Chest X-Ray 11/05/17 0600 Signed Impressions: CONCLUSION: Overall slight improvement in the aeration of the lungs. Percutaneous Cholangiogram 11/01/17 0000 Signed Impressions: CONCLUSION: 1. Uncomplicated percutaneous cholecystostomy as above. Abdomen/Pelvis CT 11/01/17 0000 Signed Impressions: CONCLUSION: 1. Gallstones. There do appear to be areas of increased density within the com mon bile duct concerning for choledocholithiasis. 2. 4 mm nonobstructing left renal stone. 3. Sigmoid colon diverticula. 4. Bibasilar areas of consolidation or atelectasis being worse on the left wit h mild bilateral pleural effusions. Renal Ultrasound 10/31/17 0000 Signed Impressions: CONCLUSION: 1. No hydronephrosis. 2. Increased cortical echogenicity consistent with medical renal disease. Head Magnetic Resonance Angiography 10/31/17 0000 Signed Impressions: CONCLUSION: 1. Unremarkable MRA of the brain. Head CT 10/31/17 Signed Impressions: CONCLUSION: 1. Negative CT Head non contrast. 2. No evidence of acute infarct, hemorrhage, mass or edema. Brain MRI 10/31/17 Signed Impressions: CONCLUSION: 1. Senescent changes with minimal periventricular ischemic white matter demyel ination. 2. No acute abnormality. Specifically, no acute infarction, mass or hemorrhage . Gall Bladder Ultrasound 10/30/17 Signed Impressions: CONCLUSION: 1. Fatty infiltration of the liver. 2. Multiple stones in the gallbladder. No biliary tract obstruction. Extremity Arterial Study 10/28/17 Signed Impressions: CONCLUSION: 1. Abnormal ABIs, left greater than right. The left DAVID is significantly dimin ished at 0.14. Aorta w/Runoff CTA 10/28/17 Signed Impressions: Service Date/Time: Saturday, October 28, 2017 21:50 - CONCLUSION: 1. Acute occlusion of the left inflow with concern for short segment occlusion involving the distal right inflow. This raises concern for an embolic event. 2. Right lower extremity shows scattered disease throughout the common femoral artery, SFA and [id number] popliteal artery with three-vessel runoff to the foot. 3. Left lower extremity with reconstitution of the common femoral artery with diseased out flow and two vessel runoff to the foot as detailed above. 4. 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 5. Hepatic steatosis. 6. Cholelithiasis. Juanjose Mckeon Jr., MD Physical Exam HEENT: Normocephalic; atraumatic CHEST Respirations synchronized with vent via ETT CARDIAC: RRR ABDOMEN: Distended, soft, bowel sounds active, cholecystomy drain, NG tube to trickle TF SKIN: Normal; no rash; no jaundice. 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 S/P IR for percutaneous cholecystostomy drain on 11/01 - Culture with heavy growth of gram positive and gram negative enteric terrell, no further work up Pt on Unasyn - Elevated LFTs- likely secondary to obstruction from above but liver work up pending Iron-145 TIBC-214 %sat-67.7 Ferritin-248 AFP-6.9 Hepatitis panel negative [place], AMA, ASMA, ceruloplasmin, AAT pending - Anemia, normocytic- with Hemoccult positive stools- no obvious GIB - Cold left leg- Heparin gtt (11/05) Remains sedated and intubated. Increase in t bili noted today. Cholecystostomy tube draining dark colored bile. MRCP vs ERCP when stable, pt still on 60% FiO2. Trickle TF running, Jevity 1.5 @ 10 mL/hr, PPN decreased. Plan ERCP vs MRCP when stable Monitor output from cholecystostomy drain Monitor LFTs Liver YODER pending- although likely the cause for elevated LFTs- obstructive Antibiotics per ID Monitor H/H Notify GI if any obvious GIB Of note, on Heparin gtt Further recommendations based on clinical course Pt has been seen and examined by myself and Dr. Romo and this note is written on his behalf (Annika Tenorio) Physician Comments Seen and examined with INTERNAL COMMUNICATIONS SPECIALIST, LFTs normal. Needs ERCP when able.Continue antibiotics. (Nik Romo MD) Problem Qualifiers (1) Sepsis: Qualified Codes: A41.9 - Sepsis, unspecified organism Annika Tenorio November 05, 2017 12:27 Nik Romo MD November 05, 2017 13:12
[2017-11-05] MEDS ORDERED: SODIUM CHLORIDE 0.9% IV SCH (13:00)
[2017-11-05] MEDS ORDERED: AMPICILLIN SULBACTAM IV SCH (13:00)
--- NOTE | 2017-11-05 14:33 | HHI.CCPN ---
Subjective Remarks/Hospital Course 67-year-old male presents to the emergency department via EMS for evaluation of shortness of breath and pain and numbness to the left leg. Patient believes that he is shortness of breath is related to the pain in his leg. He cannot feel his leg from his groin down. He denies any history of the same. He does report history of COPD. He denies any known fevers or chills. He denies chest pain. Patient received 1 L normal saline bolus via EMS. Patient denies any history of bleeding or blood clots. No recent surgery or travel. No hemoptysis. No history of DVT/PE. He denies leg edema. Patient states the pain is 10/10 to the left leg. No exacerbating or alleviating factors. Moderate severity. 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 The right inflow is heavily diseased as well. The patient was evaluated by vascular surgeon food and nutrition services supervisor and was immediately started on heparin drip. SUBJ 10/29: Remains critically ill, encephalopathy. 4 out of 4 bottles positive for GNR. I will change Rocephin to Zosyn renally dosed to cover for Pseudomonas also. Continue azithromycin. Creatinine still elevated but slightly improved. WBC count slightly increased 17.2 now with 24% bands. Source of GNR sepsis could be either UTI or pneumonia. Will consult ID as well. Remains on IV heparin for acute left limb ischemia 10/30: platelets falling >50% again today. Cr still rising, but could be ATN/ contrast nephropathy. blood cultures growing e. coli by PCR, full speciation to follow. urine culture pending. discussed case with Dr. Lopez, will stop heparin , start argatroban and send HIT/CHARLEEN. denies complaints for me, but does have objective tenderness on palpation, RUQ. 10/31: Emergently intubated today a.m. by Dr. Puckett for worsening mental status, encephalopathy and worsening respiratory failure. Prior to intubation Dr. Puckett ' exam revealed right upper quadrant tenderness. Ultrasound of the gallbladder yesterday showed gallstones. Overnight Argatroban was supratherapeutic and was held, platelet count also dropped to 30,000, HIT screen is pending. Postintubation bilateral pupils are reactive but unequal. Will repeat CT of the head, CT abdomen pelvis. BUN 49/Creat 2.7, leukocytosis persisting 11/01: no improvements. ct abd/pelvis with evidence of possible choledocholithiasis. perc doug tube planned for this AM. on esmolol infusion for afib RVR. fio2 increased to 70%. 11/02: Sodium bicarbonate infusion continued per nephrology in the setting of rhabdomyolysis serial creatinine kinase pending. Cholecystostomy drain placement 100 cc overnight. Continued thrombocytopenia, CBC, serotonin release assay pending. Plan for reinitiation of heparin awaiting GI consultation for possible invasive procedures prior to restarting heparin. Patient sinus rhythm with occasional PAC's. 11/03: No acute events overnight. Sodium bicarbonate infusion discontinued this a.m. had any improved this a.m.. Chest x-ray showed worsening consolidation, FiO2 requirements were increased to 65% during the night. CPAP trials on hold currently. Biliary drainage from cholecystostomy tube revealing gram-negative rods. The patient continues on antibiotics. Bilateral dorsalis pedis pulses monophasic signals by Doppler. Heparin infusion reinitiated. 11/04: Sodium bicarbonate infusion discontinued at 7 AM yesterday. Chest x-ray worsening consolidation versus pleural effusions. FiO2 slightly decreased to 60 %, ABG improving. Pending quantification via ultrasound of pleural fluid in am. Lasix 40mg x1 additional dose provided today . PPN discontinued discussed with Dr. Colon tube feeds initiated at [facility]. Dietary consult ordered. 11/05: Afebrile. Patient tolerating tube feeds advanced to goal rate of 55 cc/ hr. chest x-ray with slight improvement FiO2 decreased to 55% ABG pending. Initiation of CPAP trial to be attempted today. Objective Vital Signs Date Time Temp Pulse Resp B/P (MAP) Pulse Ox O2 Delivery O2 Flow Rate FiO2 11/05/17 12:00 50 11/05/17 12:00 97.9 17 158/71 (100) 97 11/05/17 12:00 60 Intake and Output 11/05/17 11/05/17 11/06/17 08:00 16:00 00:00 Intake Total 833.0 ml Output Total 1010 ml Balance -177.0 ml Result Diagram: 11/04/17 0312 11/05/17 0911 Other Results Microbiology Date/Time Source Procedure Growth Status 11/04/17 05:08 Stool Stool Stool Occult Blood (NUBIA) - Final HEMOCCULT POSITIVE Complete Imaging Last Impressions Chest X-Ray 11/03/17 0600 Signed Impressions: CONCLUSION: Worsening parenchymal consolidation and small effusions at each lung base. Percutaneous Cholangiogram 11/01/17 Signed Impressions: CONCLUSION: 1. Uncomplicated percutaneous cholecystostomy as above. Abdomen/Pelvis CT 11/01/17 Signed Impressions: CONCLUSION: 1. Gallstones. There do appear to be areas of increased density within the com mon bile duct concerning for choledocholithiasis. 2. 4 mm nonobstructing left renal stone. 3. Sigmoid colon diverticula. 4. Bibasilar areas of consolidation or atelectasis being worse on the left wit h mild bilateral pleural effusions. Renal Ultrasound 10/31/17 Signed Impressions: CONCLUSION: 1. No hydronephrosis. 2. Increased cortical echogenicity consistent with medical renal disease. Head Magnetic Resonance Angiography 10/31/17 Signed Impressions: CONCLUSION: 1. Unremarkable MRA of the brain. Head CT 10/31/17 Signed Impressions: CONCLUSION: 1. Negative CT Head non contrast. 2. No evidence of acute infarct, hemorrhage, mass or edema. Brain MRI 10/31/17 Signed Impressions: CONCLUSION: 1. Senescent changes with minimal periventricular ischemic white matter demyel ination. 2. No acute abnormality. Specifically, no acute infarction, mass or hemorrhage . Gall Bladder Ultrasound 10/30/17 Signed Impressions: CONCLUSION: 1. Fatty infiltration of the liver. 2. Multiple stones in the gallbladder. No biliary tract obstruction. Extremity Arterial Study 10/28/17 Signed Impressions: CONCLUSION: 1. Abnormal ABIs, left greater than right. The left DAVID is significantly dimin ished at 0.14. Aorta w/Runoff CTA 10/28/17 Signed Impressions: Service Date/Time: Saturday, October 28, 2017 21:50 - CONCLUSION: 1. Acute occlusion of the left inflow with concern for short segment occlusion involving the distal right inflow. This raises concern for an embolic event. 2. Right lower extremity shows scattered disease throughout the common femoral artery, SFA and [id number] popliteal artery with three-vessel runoff to the foot. 3. Left lower extremity with reconstitution of the common femoral artery with diseased out flow and two vessel runoff to the foot as detailed above. 4. 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 5. Hepatic steatosis. 6. Cholelithiasis. Juanjose Mckeon Jr., MD Last Impressions Percutaneous Cholangiogram 11/01/17 Signed Impressions: CONCLUSION: 1. Uncomplicated percutaneous cholecystostomy as above. Abdomen/Pelvis CT 11/01/17 Signed Impressions: CONCLUSION: 1. Gallstones. There do appear to be areas of increased density within the com mon bile duct concerning for choledocholithiasis. 2. 4 mm nonobstructing left renal stone. 3. Sigmoid colon diverticula. 4. Bibasilar areas of consolidation or atelectasis being worse on the left wit h mild bilateral pleural effusions. Renal Ultrasound 10/31/17 Signed Impressions: CONCLUSION: 1. No hydronephrosis. 2. Increased cortical echogenicity consistent with medical renal disease. Head Magnetic Resonance Angiography 10/31/17 Signed Impressions: CONCLUSION: 1. Unremarkable MRA of the brain. Head CT 10/31/17 Signed Impressions: CONCLUSION: 1. Negative CT Head non contrast. 2. No evidence of acute infarct, hemorrhage, mass or edema. Chest X-Ray 10/31/17 Signed Impressions: CONCLUSION: Satisfactory position of endotracheal and nasogastric tubes. Increasing airspace disease and bilateral effusions. Brain MRI 10/31/17 Signed Impressions: CONCLUSION: 1. Senescent changes with minimal periventricular ischemic white matter demyel ination. 2. No acute abnormality. Specifically, no acute infarction, mass or hemorrhage . Gall Bladder Ultrasound 10/30/17 Signed Impressions: CONCLUSION: 1. Fatty infiltration of the liver. 2. Multiple stones in the gallbladder. No biliary tract obstruction. Extremity Arterial Study 10/28/17 Signed Impressions: CONCLUSION: 1. Abnormal ABIs, left greater than right. The left DAVID is significantly dimin ished at 0.14. Aorta w/Runoff CTA 10/28/17 Signed Impressions: Service Date/Time: Saturday, October 28, 2017 21:50 - CONCLUSION: 1. Acute occlusion of the left inflow with concern for short segment occlusion involving the distal right inflow. This raises concern for an embolic event. 2. Right lower extremity shows scattered disease throughout the common femoral artery, SFA and [id number] popliteal artery with three-vessel runoff to the foot. 3. Left lower extremity with reconstitution of the common femoral artery with diseased out flow and two vessel runoff to the foot as detailed above. 4. 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 5. Hepatic steatosis. 6. Cholelithiasis. Juanjose Mckeon Jr., MD Last 24 hours Impressions Chest X-Ray 10/28/172010 Signed Impressions: Service Date/Time: Saturday, October 28, 2017 20:20 - CONCLUSION: Left lower lobe infiltrate. Mild cardiomegaly. Juanjose Mckeon Jr., MD Objective Remarks GENERAL: This is a well-developed well-nourished middle-aged male, currently intubated, sedated, critically ill SKIN: Warm and dry. HEAD: Normocephalic. ENT: No scleral icterus. No injection or drainage. Pupils are now equal at 3mm, reactive. Orotracheally intubated NECK: Supple, trachea midline. No JVD. CARDIOVASCULAR: Sinus rhythm. Normal S1-S2 RESPIRATORY: Intubated. PRVC/AC. Air entry equal no significant wheezes. fio2 60%. GASTROINTESTINAL: Abdomen soft, mildly distended. no guarding. This cholecystostomy tube draining bilious fluid MUSCULOSKELETAL: No cyanosis, or edema. Left foot cool to touch. Bilateral DP with Doppler NEURO EXAM: Intubated, RASS -2. Following commands x 4 extremities. Spontaneous eye opening. A/P Assessment and Plan Assessment: 67yM with limb ischemia, severe sepsis and associated multiorgan failure including shock liver, acute kidney injury. remains critically ill and organ failure worsening. Now with acute respiratory failure and worsening encephalopathy. HIT negative. holding anticoagulation. plan for percutaneous cholecystostomy tube today. platelets 70k today. will need to restart heparin post procedure. GI consulted, may need ERCP as well. in terms of hypoxic respiratory failure, likely ARDS at this point. ASSESSMENT/PLAN: NEURO: Acute metabolic encephalopathy -Intubated for airway protection and worsening respiratory failure -Propofol for sedation and vent synchrony -No sedation vacation until metabolic encephalopathy and sepsis improved -10/31 CT of the head- negative RESP: Acute hypoxemic respiratory failure COPD exacerbation Left lower lobe pneumonia ARDS -Emergently intubated and placed on mechanical ventilation 10/31/2017 -PRVC/AC, DuoNeb scheduled and as needed, ventilator bundle, head of bed elevation to 30 -Steroids IV. Pulmonary consultation: Dr. Johnson following - CT mild B/L pleural effusion -Continue Zosyn -Ultrasound quantification of fluid schedule for 11/05, chest x-ray worsening effusions versus consolidation CVS: Acute on chronic left limb ischemia Afib with RVR HTN -CTA showed severe aorto-iliac occlusive disease with left iliac thrombosis -Significant calcifications and peripheral vascular disease -2D echo: EF 50%, no significant valvular lesions. left sided pleural effusion -Heparin infusion per protocol -HIT screen negative. CHARLEEN still pending -Labetalol 100 mg twice daily -Telemetry sinus rhythm GI Acute hepatic dysfunction Hyperbilirubinemia Transaminitis Acute Choledocholithiasis -Trend LFTs, gallbladder ultrasound showed multiple gallstones -Most likely secondary to severe sepsis. -Repeat CT abdomen/pelvis 10/31: c/w choledocholithiasis - plan for perc doug tube today - GI consult. may need ERCP as well. 11/02-Dr. Packer, no invasive intervention at this time -Tube feeds Jevity 1.5 goal rate 55 cc/hour Acute kidney injury Acute metabolic acidosis -Nephrology following -Sodium bicarbonate infusion discontinued 11/03. -Hydration, Strict I's and O's -Continue Lasix 40 mg IV daily ID E COLI bacteremia/severe sepsis Enterococcus in the urine: possible colonization vs. UTI. Acute Choledocholithiasis Biliary fluid gram-negative rods -Source of bacteremia could be pneumonia or UTI or cholecystitis -Zosyn, increased to 3 g every 6 hours - unclear if enterococcus is clinical UTI or colonization. -ID following -Follow-up sputum and repeat blood cultures, urine culture -Gallbladder u/s, shows gallstones HEME: acute thrombocytopenia: improving. -Most likely etiology is sepsis with consumption - HIT negative. Obtain serotonin release assay today - S/P doug tube 11/01 -Heparin infusion -Resume aspirin DVT GI prophylaxis -Vickey's and SCDs -Heparin infusion -Pepcid Dispo: needs to remain in ICU. all organ systems worsening, very critical with prognosis guarded. Critical Care: The total critical care time was 30 minutes. Time to perform other separately billable procedures was not included in the critical care time. Patient remains critically ill with septic shock, multiorgan failure, choledocholithiasis, near-critical limb ischemia. Discussed with patient's sister Jennifer Galeas at bedside all questions answered. Physician Skylar Lang MD November 05, 2017 14:33
[2017-11-05] MEDS: RESP: ALBUTEROL 2.5 MG/IPRATROPIUM 0.5 MG NEB (PRN) INH ×2 (15:31→20:49)
--- NOTE | 2017-11-05 20:02 | HHI.PR ---
Subjective Remarks 67 YOWM with COPD,Sepsis, ischemia of leg Developed RF, intubated Plt decreased sedated On PRVC AC, Fi02 55%, PEEP 8 No more mucous plugs CXr some improvement in lung infilt Objective Vital Signs Vital Signs Date Time Temp Pulse Resp B/P (MAP) Pulse Ox O2 Delivery O2 Flow Rate FiO2 11/05/17 18:00 54 11/05/17 16:00 98.7 55 19 165/72 (103) 96 11/05/17 16:00 55 11/05/17 16:00 55 11/05/17 15:29 97 55 11/05/17 14:00 53 11/05/17 12:00 50 11/05/17 12:00 97.9 50 17 158/71 (100) 97 11/05/17 12:00 60 11/05/17 11:48 98 60 11/05/17 10:00 48 11/05/17 08:00 60 11/05/17 08:00 49 11/05/17 08:00 98.3 49 16 144/67 (92) 97 11/05/17 07:31 98 60 11/05/17 06:00 51 11/05/17 04:08 100 60 11/05/17 04:00 98.2 63 15 132/61 (84) 100 11/05/17 04:00 60 11/05/17 04:00 63 11/05/17 02:00 51 11/05/17 01:06 95 60 11/05/17 00:00 98.6 53 3 152/70 (97) 96 11/05/17 00:00 53 11/05/17 00:00 60 11/04/17 22:00 52 11/04/17 20:06 96 60 I/O 11/04/17 11/04/17 11/04/17 11/05/17 11/05/17 11/05/17 07:00 15:00 23:00 07:00 15:00 23:00 Intake Total 200 ml 340 ml 833.0 ml 200 ml 385 ml Output Total 900 ml 2880 ml 1010 ml 1660 ml Balance -700 ml -2540 ml -177.0 ml 200 ml -1275 ml IV Total 100 ml 200 ml 666.0 ml 200 ml 100 ml Tube Feeding 20 ml 107 ml 165 ml Tube Irrigant 100 ml 120 ml 120 ml Other 60 ml Output Urine Total 750 ml 2750 ml 900 ml 1550 ml Drainage Total 150 ml 130 ml 110 ml 110 ml # Bowel Movements 1 0 1 0 Result Diagram: 11/04/17 0312 11/05/17 0911 Objective Remarks GENERAL: WBWN WM, On Vent, sedated SKIN: Warm and dry. HEAD: Normocephalic. EYES: No scleral icterus. No injection or drainage. NECK: Supple, trachea midline. No JVD or lymphadenopathy. CARDIOVASCULAR: Regular rate and rhythm without murmurs, gallops, or rubs. RESPIRATORY: Breath sounds equal bilaterally. No accessory muscle use. GASTROINTESTINAL: Abdomen soft, non-tender, nondistended. MUSCULOSKELETAL: No cyanosis, or edema. Cold left leg BACK: Nontender without obvious deformity. No CVA tenderness. A/P Assessment and Plan IMPRESSION: 1. Sepsis. 2. Chronic obstructive pulmonary disease, mild exacerbation. 3. Left basilar infiltrate. 4. Urinary tract infection 5. Encephalopathy. 6. Cold left leg. 7. Thrombocytopenia. 8. VDRF PLAN: Vent support PRVC AC18, Fi02 55% Sedation with Diprivan for comfort and Vent synchrony Cont Abx per ID Heparin drip Monitor Plt count Mucomyst Nebs Monitor renal functions Dennis Johnson MD November 05, 2017 20:02
[2017-11-05] MEDS: AMPICILLIN/SULBAC 3 GM/NS 100 ML IV SCH ×2 (20:03)
[2017-11-05] MEDS: CHLORHEXIDINE GLUCONATE 2 % 1 PACK (2 CLOTHS) TOP SCH (21:24)
[2017-11-06] VITALS (30 sets, daily range): BP systolic 122–181; BP diastolic 58–95; PULSE 49–75; RESP 10–20; TEMP 97.7–98.5; O2SAT 88–99
[2017-11-06] MEDS: PROPOFOL 1000 MG/100 ML INJ 100 ML IV PRN ×2 (00:23→04:32)
[2017-11-06] MEDS: methylPREDNISolone SOD SUCC 40 MG/1 ML VIAL IV PUSH SCH ×4 (01:13→18:10)
[2017-11-06] MEDS: AMPICILLIN/SULBAC 3 GM/NS 100 ML IV SCH ×8 (01:14→19:25)
[2017-11-06] MEDS: HEPARIN-D5W 25,000 U/250 ML 250 ML IV PRN ×2 (01:15→23:36)
[2017-11-06] MEDS: RESP: ACETYLCYSTEINE 20% 30 ML NEB NEB SCH ×4 (03:51→19:28)
[2017-11-06] MEDS: RESP: ALBUTEROL 2.5 MG/IPRATROPIUM 0.5 MG NEB (PRN) INH ×4 (03:51→19:28)
--- NOTE | 2017-11-06 04:03 | RADRPT ---
EXAM DATE: 11/06/2017 3:58 AM EDT AGE/SEX: 67 years / Male INDICATIONS: Short of breath. CLINICAL DATA: This is the patient's subsequent encounter. Patient reports that signs and symptoms h ave been present for 1 week and indicates a pain score of 0/10. MEDICAL/SURGICAL HISTORY: . Chronic obstructive pulmonary disease. Hiatal hernia . Hernia repa ir. COMPARISON: [facility] [place], CHEST SINGLE AP, 11/05/2017. . FINDINGS: Mild haziness remains probably pulmonary edema. Pleural effusions are also suspected bilaterally. The re is no appreciable change. ET tube is present with tip approximately 2 cm above the joceline. NG tube is also seen not changed. Left lung base consolidation is difficult to exclude. CONCLUSION: No appreciable change. Electronically signed by: Talya Sanders MD 11/06/2017 4:02 AM EDT
[2017-11-06] MEDS: hydrALAZINE HCL 25 MG TAB PO SCH ×2 (05:25→14:10)
[2017-11-06 05:28] LABS: HEMATOCRIT 34.3 % (39.0-51.0); HEMOGLOBIN 11.7 GM/DL (13.0-17.0); MEAN CELL VOLUME 91.2 FL (80.0-100.0); MEAN CORPUSCULAR HEMOGLOBIN 31.1 PG (27.0-34.0); MEAN CORPUSCULAR HGB CONC 34.1 % (32.0-36.0); MEAN PLATELET VOLUME 10.6 FL (7.0-11.0); PLATELET COUNT 206 TH/MM3 (150-450); RED BLOOD COUNT 3.76 MIL/MM3 (4.50-5.90); RED CELL DISTRIBUTION WIDTH 13.6 % (11.6-17.2); WHITE BLOOD COUNT 13.8 TH/MM3 (4.0-11.0)
[2017-11-06 05:56] LABS: BICARBONATE 29.7 MEQ/L (21.0-32.0); CALCIUM 7.4 MG/DL (8.5-10.1); CREATININE 1.32 MG/DL (0.60-1.30); MAGNESIUM 2.3 MG/DL (1.5-2.5)
[2017-11-06 06:08] LABS: CALCIUM-PROTEIN CORRECTED 8.6 MG/DL (8.5-10.1)
[2017-11-06] MEDS: FUROSEMIDE 40 MG/4 ML VIAL IV PUSH SCH (08:07)
[2017-11-06] MEDS: FAMOTIDINE 20 MG/2 ML VIAL IV PUSH SCH ×2 (08:07→19:25)
[2017-11-06] MEDS: CHLORHEXIDINE 0.12% (ORAL KIT) 15 ML CUP MT SCH ×2 (08:07→19:25)
[2017-11-06] MEDS: LABETALOL HCL 100 MG TAB PO SCH ×3 (08:07→21:28)
[2017-11-06] MEDS: DOCUSATE SODIUM 50 MG/SENNA 8.6 MG TAB PO SCH ×2 (08:08→19:25)
[2017-11-06] MEDS: ASPIRIN 81 MG CHEW TAB CHEW SCH (08:08)
[2017-11-06] MEDS: SODIUM CHLORIDE 0.9% FLUSH 10 ML FLUSH IV FLUSH SCH ×2 (08:08→19:25)
[2017-11-06 09:10] LABS: BANDS 6 % (0-6); LYMPHOCYTES 4 % (9-44); MONOCYTES 1 % (0-8); NEUTROPHIL # MANUAL DIFF 13.1 TH/MM3 (1.8-7.7); POLYS (SEG NEUTROPHILS) 89 % (16-70)
[2017-11-06] MEDS: DEXMEDETOMIDINE INJ 200 MCG in SODIUM CHLORIDE 0.9% INJ 50 ML IV PRN ×2 (10:26→14:10)
--- NOTE | 2017-11-06 12:04 | HHI.GIFU ---
Subjective Remarks Remains on sedation and mechanically ventilated via ETT (Annika Tenorio) Objective Vitals I&O Vital Signs Date Time Temp Pulse Resp B/P (MAP) Pulse Ox O2 Delivery O2 Flow Rate FiO2 11/06/17 07:54 98 55 11/06/17 06:00 69 11/06/17 04:00 98.5 62 20 157/95 (115) 97 11/06/17 04:00 55 11/06/17 04:00 62 11/06/17 03:52 99 50 11/06/17 02:00 61 11/06/17 00:27 98 55 11/06/17 00:00 58 11/06/17 00:00 98.2 58 18 134/64 (87) 95 11/06/17 00:00 55 11/05/17 22:00 65 11/05/17 20:18 98 55 11/05/17 20:00 55 11/05/17 20:00 60 11/05/17 20:00 98.4 60 18 167/74 (105) 98 11/05/17 18:00 54 11/05/17 16:00 98.7 55 19 165/72 (103) 96 11/05/17 16:00 55 11/05/17 16:00 55 11/05/17 15:29 97 55 11/05/17 14:00 53 I/O 11/05/17 11/05/17 11/05/17 11/06/17 11/06/17 11/06/17 07:00 15:00 23:00 07:00 15:00 23:00 Intake Total 833.0 ml 200 ml 585 ml 1021.8 ml Output Total 1010 ml 1660.0 ml 900 ml Balance -177.0 ml 200 ml -1075.0 ml 121.8 ml IV Total 666.0 ml 200 ml 300 ml 621.8 ml Tube Feeding 107 ml 165 ml 340 ml Tube Irrigant 120 ml Other 60 ml 60 ml Output Urine Total 900 ml 1550 ml 800 ml Tube Feeding Residual Discard 0 ml Drainage Total 110 ml 110 ml 100 ml # Bowel Movements 1 0 1 Laboratory Laboratory Tests Test 11/05/17 14:58 11/06/17 05:11 11/06/17 05:37 Blood Gas Puncture Site RT RADIAL RT RADIAL Blood Gas Patient Temperature 98.6 98.6 Blood Gas HCO3 30 30 Blood Gas Base Excess 7.0 6.0 Blood Gas Oxygen Saturation 96 82 Arterial Blood pH 7.55 7.50 Arterial Blood Partial Pressure CO2 34 39 Arterial Blood Partial Pressure O2 116 49 Arterial Blood Oxygen Content 16.2 13.3 Arterial Blood Carboxyhemoglobin 1.1 1.0 Arterial Blood Methemoglobin 1.5 1.4 Blood Gas Hemoglobin 11.9 11.5 Oxygen Delivery Device VENTILATOR VENTILATOR Blood Gas Ventilator Setting PRVC-AC Blood Gas Inspired Oxygen 55 50 White Blood Count 13.8 Red Blood Count 3.76 Hemoglobin 11.7 Hematocrit 34.3 Mean Corpuscular Volume 91.2 Mean Corpuscular Hemoglobin 31.1 Mean Corpuscular Hemoglobin Concent 34.1 Red Cell Distribution Width 13.6 Platelet Count 206 Mean Platelet Volume 10.6 CBC Comment AUTO DIFF Differential Total Cells Counted 100 Neutrophils % (Manual) 89 Band Neutrophils % 6 Lymphocytes % 4 Monocytes % 1 Neutrophils # (Manual) 13.1 Differential Comment FINAL DIFF MANUAL Platelet Estimate NORMAL Platelet Morphology Comment NORMAL Red Cell Morphology Comment NORMAL Activated Partial Thromboplast Time 47.6 Blood Urea Nitrogen 48 Creatinine 1.32 Random Glucose 129 Total Protein 5.0 Calcium Level 7.4 Phosphorus Level 4.0 Magnesium Level 2.3 Sodium Level 144 Potassium Level 3.8 Chloride Level 104 Carbon Dioxide Level 29.7 Anion Gap 10 Estimat Glomerular Filtration Rate 54 Protein Corrected Calcium 8.6 Date/Time Source Procedure Growth Status 10/30/17 20:38 Blood Peripheral Aerobic Blood Culture - Final NO GROWTH IN 5 DAYS Complete 10/30/17 20:38 Blood Peripheral Anaerobic Blood Culture - Final NO GROWTH IN 5 DAYS Complete 11/01/17 11:05 Fluid Other Gram Stain - Final Complete 11/01/17 11:05 Fluid Other Body Fluid Culture - Final Complete 11/04/17 05:08 Stool Stool Stool Occult Blood (NUBIA) - Final HEMOCCULT POSITIVE Complete 10/31/17 10:40 Sputum Endotracheal Gram Stain - Final Complete 10/31/17 10:40 Sputum Endotracheal Sputum Culture - Final HEAVY GROWTH NORMAL RESPIRATORY TERRELL Complete 10/29/17 00:00 Urine Catheterized Urine Urine Culture - Final Enterococcus Faecalis Complete Imaging Last Impressions Chest X-Ray 11/06/17 0600 Signed Impressions: CONCLUSION: No appreciable change. Percutaneous Cholangiogram 11/01/17 0000 Signed Impressions: CONCLUSION: 1. Uncomplicated percutaneous cholecystostomy as above. Abdomen/Pelvis CT 11/01/17 Signed Impressions: CONCLUSION: 1. Gallstones. There do appear to be areas of increased density within the com mon bile duct concerning for choledocholithiasis. 2. 4 mm nonobstructing left renal stone. 3. Sigmoid colon diverticula. 4. Bibasilar areas of consolidation or atelectasis being worse on the left wit h mild bilateral pleural effusions. Renal Ultrasound 10/31/17 Signed Impressions: CONCLUSION: 1. No hydronephrosis. 2. Increased cortical echogenicity consistent with medical renal disease. Head Magnetic Resonance Angiography 10/31/17 Signed Impressions: CONCLUSION: 1. Unremarkable MRA of the brain. Head CT 10/31/17 Signed Impressions: CONCLUSION: 1. Negative CT Head non contrast. 2. No evidence of acute infarct, hemorrhage, mass or edema. Brain MRI 10/31/17 Signed Impressions: CONCLUSION: 1. Senescent changes with minimal periventricular ischemic white matter demyel ination. 2. No acute abnormality. Specifically, no acute infarction, mass or hemorrhage . Gall Bladder Ultrasound 10/30/17 Signed Impressions: CONCLUSION: 1. Fatty infiltration of the liver. 2. Multiple stones in the gallbladder. No biliary tract obstruction. Extremity Arterial Study 10/28/17 Signed Impressions: CONCLUSION: 1. Abnormal ABIs, left greater than right. The left DAVID is significantly dimin ished at 0.14. Aorta w/Runoff CTA 10/28/17 Signed Impressions: Service Date/Time: Saturday, October 28, 2017 21:50 - CONCLUSION: 1. Acute occlusion of the left inflow with concern for short segment occlusion involving the distal right inflow. This raises concern for an embolic event. 2. Right lower extremity shows scattered disease throughout the common femoral artery, SFA and [id number] popliteal artery with three-vessel runoff to the foot. 3. Left lower extremity with reconstitution of the common femoral artery with diseased out flow and two vessel runoff to the foot as detailed above. 4. 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 5. Hepatic steatosis. 6. Cholelithiasis. Juanjose Mckeon Jr., MD Physical Exam HEENT: Normocephalic; atraumatic CHEST Respirations synchronized with vent via ETT CARDIAC: RRR ABDOMEN: Distended, soft, bowel sounds active, cholecystomy drain, NG tube to TF at goal SKIN: Normal; no rash; no jaundice. 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 S/P IR for percutaneous cholecystostomy drain on 11/01 - Culture with heavy growth of gram positive and gram negative enteric trerell, no further work up Pt on Unasyn - Elevated LFTs- likely secondary to obstruction from above but liver work up pending Iron-145 TIBC-214 %sat-67.7 Ferritin-248 AFP-6.9 Hepatitis panel negative [place], AMA, ASMA, ceruloplasmin, AAT pending - Anemia, normocytic- with Hemoccult positive stools- no obvious GIB - Cold left leg- Heparin gtt (11/05) Remains sedated and intubated. Increase in t bili noted today. Cholecystostomy tube draining dark colored bile. MRCP vs ERCP when stable, pt still on 60% FiO2. Trickle TF running, Jevity 1.5 @ 10 mL/hr, PPN decreased. (11/06) Remains sedated an intubated. No repeat hepatic function panel from today. Tolerating TF at goal. Remains on hepatin gtt Plan ERCP when stable Monitor output from cholecystostomy drain Monitor LFTs Liver YODER pending- although likely the cause for elevated LFTs- obstructive Antibiotics per ID Monitor H/H Notify GI if any obvious GIB Of note, on Heparin gtt Further recommendations based on clinical course Pt has been seen and examined by myself and Dr. 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 ? ercp later in the week if stable. Biliary drain working well. (Nik Romo MD) Problem Qualifiers (1) Sepsis: Qualified Codes: A41.9 - Sepsis, unspecified organism Annika Tenorio November 06, 2017 12:04 Nik Romo MD November 06, 2017 16:34
--- NOTE | 2017-11-06 13:48 | HHI.IDPN ---
Subjective Subjective Remarks ID Xcover for Dr Soler chart was reviewed dw Dr Ziggy Holly 67-year-old white male who presented to the Emergency Department with shortness of breath and left leg pain. In the emergency Department his heart rate was 102 and temperature was 100.7. White blood cell count was elevated at 13.3 and lactic acid level was 7.4. Chest x-ray showed left lung infiltrate. Urinalysis showed 28 white cells with white blood cell clumps. Intubated on 10/31. Patient remains on the ventilator. Tolerats CPAP 0% FIO2. Afebrile. WBC mildly increased. Antibiotics unasyn Allergies: Coded Allergies: No Known Allergies (Unverified , 10/28/17) Objective . Vital Signs Date Time Temp Pulse Resp B/P (MAP) Pulse Ox O2 Delivery O2 Flow Rate FiO2 11/06/17 12:17 94 50 11/06/17 07:54 98 55 11/06/17 06:00 69 11/06/17 04:00 98.5 62 20 157/95 (115) 97 11/06/17 04:00 55 11/06/17 04:00 62 11/06/17 03:52 99 50 11/06/17 02:00 61 11/06/17 00:27 98 55 11/06/17 00:00 58 11/06/17 00:00 98.2 58 18 134/64 (87) 95 11/06/17 00:00 55 11/05/17 22:00 65 11/05/17 20:18 98 55 11/05/17 20:00 55 11/05/17 20:00 60 11/05/17 20:00 98.4 60 18 167/74 (105) 98 11/05/17 18:00 54 11/05/17 16:00 98.7 55 19 165/72 (103) 96 11/05/17 16:00 55 11/05/17 16:00 55 11/05/17 15:29 97 55 11/05/17 14:00 53 . Laboratory Tests Test 11/06/17 05:11 White Blood Count 13.8 TH/MM3 Red Blood Count 3.76 MIL/MM3 Hemoglobin 11.7 GM/DL Hematocrit 34.3 % Mean Corpuscular Volume 91.2 FL Mean Corpuscular Hemoglobin 31.1 PG Mean Corpuscular Hemoglobin Concent 34.1 % Red Cell Distribution Width 13.6 % Platelet Count 206 TH/MM3 Mean Platelet Volume 10.6 FL CBC Comment AUTO DIFF Differential Total Cells Counted 100 Neutrophils % (Manual) 89 % Band Neutrophils % 6 % Lymphocytes % 4 % Monocytes % 1 % Neutrophils # (Manual) 13.1 TH/MM3 Differential Comment FINAL DIFF MANUAL Platelet Estimate NORMAL Platelet Morphology Comment NORMAL Red Cell Morphology Comment NORMAL Laboratory Tests Test 11/05/17 09:11 11/06/17 05:11 Blood Urea Nitrogen 47 MG/DL 48 MG/DL Creatinine 1.23 MG/DL 1.32 MG/DL Random Glucose 120 MG/DL 129 MG/DL Total Protein 5.0 GM/DL 5.0 GM/DL Albumin 1.9 GM/DL Calcium Level 7.4 MG/DL 7.4 MG/DL Phosphorus Level 5.0 MG/DL 4.0 MG/DL Magnesium Level 2.4 MG/DL 2.3 MG/DL Alkaline Phosphatase 58 U/L Aspartate Amino Transf (AST/SGOT) 55 U/L Alanine Aminotransferase (ALT/SGPT) 59 U/L Total Bilirubin 3.0 MG/DL Sodium Level 143 MEQ/L 144 MEQ/L Potassium Level 3.9 MEQ/L 3.8 MEQ/L Chloride Level 102 MEQ/L 104 MEQ/L Carbon Dioxide Level 29.7 MEQ/L 29.7 MEQ/L Anion Gap 11 MEQ/L 10 MEQ/L Estimat Glomerular Filtration Rate 59 ML/MIN 54 ML/MIN Protein Corrected Calcium 8.6 MG/DL 8.6 MG/DL Total Creatine Kinase 383 U/L Creatine Kinase MB 0.5 NG/ML Creatine Kinase MB % 0.1 % Microbiology Date/Time Source Procedure Growth Status 11/04/17 05:08 Stool Stool Stool Occult Blood (NUBIA) - Final HEMOCCULT POSITIVE Complete Imaging Last Impressions Chest X-Ray 11/06/17 0600 Signed Impressions: CONCLUSION: No appreciable change. Percutaneous Cholangiogram 11/01/17 0000 Signed Impressions: CONCLUSION: 1. Uncomplicated percutaneous cholecystostomy as above. Abdomen/Pelvis CT 11/01/17 0000 Signed Impressions: CONCLUSION: 1. Gallstones. There do appear to be areas of increased density within the com mon bile duct concerning for choledocholithiasis. 2. 4 mm nonobstructing left renal stone. 3. Sigmoid colon diverticula. 4. Bibasilar areas of consolidation or atelectasis being worse on the left wit h mild bilateral pleural effusions. Renal Ultrasound 10/31/17 Signed Impressions: CONCLUSION: 1. No hydronephrosis. 2. Increased cortical echogenicity consistent with medical renal disease. Head Magnetic Resonance Angiography 10/31/17 Signed Impressions: CONCLUSION: 1. Unremarkable MRA of the brain. Head CT 10/31/17 Signed Impressions: CONCLUSION: 1. Negative CT Head non contrast. 2. No evidence of acute infarct, hemorrhage, mass or edema. Brain MRI 10/31/17 Signed Impressions: CONCLUSION: 1. Senescent changes with minimal periventricular ischemic white matter demyel ination. 2. No acute abnormality. Specifically, no acute infarction, mass or hemorrhage . Gall Bladder Ultrasound 10/30/17 Signed Impressions: CONCLUSION: 1. Fatty infiltration of the liver. 2. Multiple stones in the gallbladder. No biliary tract obstruction. Extremity Arterial Study 10/28/17 Signed Impressions: CONCLUSION: 1. Abnormal ABIs, left greater than right. The left DAVID is significantly dimin ished at 0.14. Aorta w/Runoff CTA 10/28/17 Signed Impressions: Service Date/Time: Saturday, October 28, 2017 21:50 - CONCLUSION: 1. Acute occlusion of the left inflow with concern for short segment occlusion involving the distal right inflow. This raises concern for an embolic event. 2. Right lower extremity shows scattered disease throughout the common femoral artery, SFA and [id number] popliteal artery with three-vessel runoff to the foot. 3. Left lower extremity with reconstitution of the common femoral artery with diseased out flow and two vessel runoff to the foot as detailed above. 4. 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 5. Hepatic steatosis. 6. Cholelithiasis. Juanjose Mckeon Jr., MD Physical Exam GENERAL: On the ventilator. Unresponsive. HEENT: Head atraumatic. No icterus. NECK: Supple without adenopathy. No swelling. LUNGS: Slight rhonchi. Good air movement. HEART: Bradycardic, No audible murmurs. ABDOMEN: Obese, distended, cholecystostomy tube in place with biliary drainage. EXTREMITIES: No clubbing or cyanosis or edema. Left foot is currently warm. Purple discoloration of 4thL toe SKIN: No diffuse rash. NEUROLOGIC: unresponsive PSYCHIATRIC: Calm. Unable to fully assess. Assessment & Plan Remarks IMPRESSION: 1. Severe sepsis due to E. coli very likely secondary to acute cholecystitis. Cholangitis. 2. Bacteriuria with less than 10,000 Enterococcus faecalis. 3. Pneumonia. Bilateral airspace disease on chest x-ray. 4. Leukocytosis secondary to infection. WBC worse today 5. Acute kidney disease likely resulting from sepsis. Renal function slightly worse today - 6. Acute respiratory failure. ? CHF. RECOMMENDATIONS: 1. Continue ampicillin/sulbactam 3 g IV every 6 hours. - will complete 14 days 2. Monitor temperature 3. The white blood cell count. 4. Monitor the clinical status. 5.chk urine eos dw Bela Toro MD November 06, 2017 13:48
[2017-11-06 14:05] LABS: SMOOTH MUSCLE TOTAL AUTOABS Negative (Negative)
[2017-11-06 14:20] LABS: ALPHA-1-ANTITRYPSIN 215 mg/dL (100 - 190)
--- NOTE | 2017-11-06 17:30 | HHI.CCPN ---
Subjective Remarks/Hospital Course 67-year-old male presents to the emergency department via EMS for evaluation of shortness of breath and pain and numbness to the left leg. Patient believes that he is shortness of breath is related to the pain in his leg. He cannot feel his leg from his groin down. He denies any history of the same. He does report history of COPD. He denies any known fevers or chills. He denies chest pain. Patient received 1 L normal saline bolus via EMS. Patient denies any history of bleeding or blood clots. No recent surgery or travel. No hemoptysis. No history of DVT/PE. He denies leg edema. Patient states the pain is 10/10 to the left leg. No exacerbating or alleviating factors. Moderate severity. 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 The right inflow is heavily diseased as well. The patient was evaluated by vascular surgeon conduit bender and was immediately started on heparin drip. SUBJ 10/29: Remains critically ill, encephalopathy. 4 out of 4 bottles positive for GNR. I will change Rocephin to Zosyn renally dosed to cover for Pseudomonas also. Continue azithromycin. Creatinine still elevated but slightly improved. WBC count slightly increased 17.2 now with 24% bands. Source of GNR sepsis could be either UTI or pneumonia. Will consult ID as well. Remains on IV heparin for acute left limb ischemia 10/30: platelets falling >50% again today. Cr still rising, but could be ATN/ contrast nephropathy. blood cultures growing e. coli by PCR, full speciation to follow. urine culture pending. discussed case with Dr. Lopez, will stop heparin , start argatroban and send HIT/CHARLEEN. denies complaints for me, but does have objective tenderness on palpation, RUQ. 10/31: Emergently intubated today a.m. by Dr. Puckett for worsening mental status, encephalopathy and worsening respiratory failure. Prior to intubation Dr. Puckett ' exam revealed right upper quadrant tenderness. Ultrasound of the gallbladder yesterday showed gallstones. Overnight Argatroban was supratherapeutic and was held, platelet count also dropped to 30,000, HIT screen is pending. Postintubation bilateral pupils are reactive but unequal. Will repeat CT of the head, CT abdomen pelvis. BUN 49/Creat 2.7, leukocytosis persisting 11/01: no improvements. ct abd/pelvis with evidence of possible choledocholithiasis. perc doug tube planned for this AM. on esmolol infusion for afib RVR. fio2 increased to 70%. 11/02: Sodium bicarbonate infusion continued per nephrology in the setting of rhabdomyolysis serial creatinine kinase pending. Cholecystostomy drain placement 100 cc overnight. Continued thrombocytopenia, CBC, serotonin release assay pending. Plan for reinitiation of heparin awaiting GI consultation for possible invasive procedures prior to restarting heparin. Patient sinus rhythm with occasional PAC's. 11/03: No acute events overnight. Sodium bicarbonate infusion discontinued this a.m. had any improved this a.m.. Chest x-ray showed worsening consolidation, FiO2 requirements were increased to 65% during the night. CPAP trials on hold currently. Biliary drainage from cholecystostomy tube revealing gram-negative rods. The patient continues on antibiotics. Bilateral dorsalis pedis pulses monophasic signals by Doppler. Heparin infusion reinitiated. 11/04: Sodium bicarbonate infusion discontinued at 7 AM yesterday. Chest x-ray worsening consolidation versus pleural effusions. FiO2 slightly decreased to 60 %, ABG improving. Pending quantification via ultrasound of pleural fluid in am. Lasix 40mg x1 additional dose provided today . PPN discontinued discussed with Dr. Colon tube feeds initiated at [facility]. Dietary consult ordered. 11/05: Afebrile. Patient tolerating tube feeds advanced to goal rate of 55 cc/ hr. chest x-ray with slight improvement FiO2 decreased to 55% ABG pending. Initiation of CPAP trial to be attempted today. 11/06: Late entry note. Patient seen at 628am. Patient was started on CPAP and continues on CPAP greater than 10 hours. Patient following commands, currently on Precedex infusion. Objective Vital Signs Date Time Temp Pulse Resp B/P (MAP) Pulse Ox O2 Delivery O2 Flow Rate FiO2 11/06/17 16:00 45 11/06/17 16:00 98.0 11/06/17 15:17 99 11/06/17 14:04 51 14 149/68 (95) Intake and Output 11/06/17 11/06/17 11/07/17 08:00 16:00 00:00 Intake Total 1021.8 ml 100 ml Output Total 900 ml Balance 121.8 ml 100 ml Result Diagram: 11/06/17 0511 11/06/17 0511 Other Results Microbiology Date/Time Source Procedure Growth Status 11/04/17 05:08 Stool Stool Stool Occult Blood (NUBIA) - Final HEMOCCULT POSITIVE Complete Laboratory Tests Test 11/06/17 05:37 Blood Gas Puncture Site RT RADIAL Blood Gas Patient Temperature 98.6 Blood Gas HCO3 30 mmol/L (22-26) Blood Gas Base Excess 6.0 mmol/L (-2-2) Blood Gas Oxygen Saturation 82 % (90-100) Arterial Blood pH 7.50 (7.380-7.420) Arterial Blood Partial Pressure CO2 39 mmHg (38-42) Arterial Blood Partial Pressure O2 49 mmHg (61-120) Arterial Blood Oxygen Content 13.3 Vol % (12.0-20.0) Arterial Blood Carboxyhemoglobin 1.0 % (0-4) Arterial Blood Methemoglobin 1.4 % (0-2) Blood Gas Hemoglobin 11.5 G/DL (12.0-16.0) Oxygen Delivery Device VENTILATOR Blood Gas Ventilator Setting PRVC-AC Blood Gas Inspired Oxygen 50 % Imaging Last Impressions Chest X-Ray 11/03/17 0600 Signed Impressions: CONCLUSION: Worsening parenchymal consolidation and small effusions at each lung base. Percutaneous Cholangiogram 11/01/17 Signed Impressions: CONCLUSION: 1. Uncomplicated percutaneous cholecystostomy as above. Abdomen/Pelvis CT 11/01/17 Signed Impressions: CONCLUSION: 1. Gallstones. There do appear to be areas of increased density within the com mon bile duct concerning for choledocholithiasis. 2. 4 mm nonobstructing left renal stone. 3. Sigmoid colon diverticula. 4. Bibasilar areas of consolidation or atelectasis being worse on the left wit h mild bilateral pleural effusions. Renal Ultrasound 10/31/17 Signed Impressions: CONCLUSION: 1. No hydronephrosis. 2. Increased cortical echogenicity consistent with medical renal disease. Head Magnetic Resonance Angiography 10/31/17 Signed Impressions: CONCLUSION: 1. Unremarkable MRA of the brain. Head CT 10/31/17 Signed Impressions: CONCLUSION: 1. Negative CT Head non contrast. 2. No evidence of acute infarct, hemorrhage, mass or edema. Brain MRI 10/31/17 Signed Impressions: CONCLUSION: 1. Senescent changes with minimal periventricular ischemic white matter demyel ination. 2. No acute abnormality. Specifically, no acute infarction, mass or hemorrhage . Gall Bladder Ultrasound 10/30/17 Signed Impressions: CONCLUSION: 1. Fatty infiltration of the liver. 2. Multiple stones in the gallbladder. No biliary tract obstruction. Extremity Arterial Study 10/28/17 Signed Impressions: CONCLUSION: 1. Abnormal ABIs, left greater than right. The left DAVID is significantly dimin ished at 0.14. Aorta w/Runoff CTA 10/28/17 Signed Impressions: Service Date/Time: Saturday, October 28, 2017 21:50 - CONCLUSION: 1. Acute occlusion of the left inflow with concern for short segment occlusion involving the distal right inflow. This raises concern for an embolic event. 2. Right lower extremity shows scattered disease throughout the common femoral artery, SFA and [id number] popliteal artery with three-vessel runoff to the foot. 3. Left lower extremity with reconstitution of the common femoral artery with diseased out flow and two vessel runoff to the foot as detailed above. 4. 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 5. Hepatic steatosis. 6. Cholelithiasis. Juanjose Mckeon Jr., MD Last Impressions Percutaneous Cholangiogram 11/01/17 Signed Impressions: CONCLUSION: 1. Uncomplicated percutaneous cholecystostomy as above. Abdomen/Pelvis CT 11/01/17 Signed Impressions: CONCLUSION: 1. Gallstones. There do appear to be areas of increased density within the com mon bile duct concerning for choledocholithiasis. 2. 4 mm nonobstructing left renal stone. 3. Sigmoid colon diverticula. 4. Bibasilar areas of consolidation or atelectasis being worse on the left wit h mild bilateral pleural effusions. Renal Ultrasound 10/31/17 Signed Impressions: CONCLUSION: 1. No hydronephrosis. 2. Increased cortical echogenicity consistent with medical renal disease. Head Magnetic Resonance Angiography 10/31/17 Signed Impressions: CONCLUSION: 1. Unremarkable MRA of the brain. Head CT 10/31/17 Signed Impressions: CONCLUSION: 1. Negative CT Head non contrast. 2. No evidence of acute infarct, hemorrhage, mass or edema. Chest X-Ray 10/31/17 Signed Impressions: CONCLUSION: Satisfactory position of endotracheal and nasogastric tubes. Increasing airspace disease and bilateral effusions. Brain MRI 10/31/17 Signed Impressions: CONCLUSION: 1. Senescent changes with minimal periventricular ischemic white matter demyel ination. 2. No acute abnormality. Specifically, no acute infarction, mass or hemorrhage . Gall Bladder Ultrasound 10/30/17 Signed Impressions: CONCLUSION: 1. Fatty infiltration of the liver. 2. Multiple stones in the gallbladder. No biliary tract obstruction. Extremity Arterial Study 10/28/17 Signed Impressions: CONCLUSION: 1. Abnormal ABIs, left greater than right. The left DAVID is significantly dimin ished at 0.14. Aorta w/Runoff CTA 10/28/17 Signed Impressions: Service Date/Time: Saturday, October 28, 2017 21:50 - CONCLUSION: 1. Acute occlusion of the left inflow with concern for short segment occlusion involving the distal right inflow. This raises concern for an embolic event. 2. Right lower extremity shows scattered disease throughout the common femoral artery, SFA and [id number] popliteal artery with three-vessel runoff to the foot. 3. Left lower extremity with reconstitution of the common femoral artery with diseased out flow and two vessel runoff to the foot as detailed above. 4. 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 5. Hepatic steatosis. 6. Cholelithiasis. Juanjose Mckeon Jr., MD Last 24 hours Impressions Chest X-Ray 10/28/172010 Signed Impressions: Service Date/Time: Saturday, October 28, 2017 20:20 - CONCLUSION: Left lower lobe infiltrate. Mild cardiomegaly. Juanjose Mckeon Jr., MD Objective Remarks GENERAL: This is a well-developed well-nourished middle-aged male, currently intubated, sedated, critically ill SKIN: Warm and dry. HEAD: Normocephalic. ENT: No scleral icterus. No injection or drainage. Pupils are now equal at 3mm, reactive. Orotracheally intubated NECK: Supple, trachea midline. No JVD. CARDIOVASCULAR: Telemetry sinus rhythm. Normal S1-S2 RESPIRATORY: Intubated. PRVC/AC. Air entry equal no significant wheezes. fio2 70%. GASTROINTESTINAL: Abdomen soft, mildly distended. no guarding. This cholecystostomy tube draining bilious fluid MUSCULOSKELETAL: No cyanosis, or edema. Left foot cool to touch. Bilateral DP with Doppler NEURO EXAM: Intubated, RASS -2. Following commands x 4 extremities. Spontaneous eye opening. A/P Assessment and Plan Assessment: 67yM with limb ischemia, severe sepsis and associated multiorgan failure including shock liver, acute kidney injury. remains critically ill and organ failure worsening. Now with acute respiratory failure and worsening encephalopathy. HIT negative. holding anticoagulation. plan for percutaneous cholecystostomy tube today. platelets 70k today. will need to restart heparin post procedure. GI consulted, may need ERCP as well. in terms of hypoxic respiratory failure, likely ARDS at this point. ASSESSMENT/PLAN: NEURO: Acute metabolic encephalopathy -Intubated for airway protection and worsening respiratory failure -Propofol for sedation and vent synchrony -No sedation vacation until metabolic encephalopathy and sepsis improved -10/31 CT of the head- negative RESP: Acute hypoxemic respiratory failure COPD exacerbation Left lower lobe pneumonia ARDS -Emergently intubated and placed on mechanical ventilation 10/31/2017 -PRVC/AC, DuoNeb scheduled and as needed, ventilator bundle, head of bed elevation to 30 -Steroids IV. Pulmonary consultation: Dr. Johnson following - CT mild B/L pleural effusion -Continue Zosyn -Ultrasound quantification of fluid schedule for 11/05, chest x-ray worsening effusions versus consolidation CVS: Acute on chronic left limb ischemia Afib with RVR HTN -CTA showed severe aorto-iliac occlusive disease with left iliac thrombosis -Significant calcifications and peripheral vascular disease -2D echo: EF 50%, no significant valvular lesions. left sided pleural effusion -Heparin infusion per protocol -HIT screen negative. CHARLEEN still pending -Labetalol 100 mg twice daily -Telemetry sinus rhythm GI Acute hepatic dysfunction Hyperbilirubinemia Transaminitis Acute Choledocholithiasis -Trend LFTs, gallbladder ultrasound showed multiple gallstones -Most likely secondary to severe sepsis. -Repeat CT abdomen/pelvis 10/31: c/w choledocholithiasis - plan for perc doug tube today - GI consult. may need ERCP as well. 11/02-Dr. Packer, no invasive intervention at this time -Tube feeds Jevity 1.5 goal rate 55 cc/hour Acute kidney injury Acute metabolic acidosis -Nephrology following -Sodium bicarbonate infusion discontinued 11/03. -Hydration, Strict I's and O's -Continue Lasix 40 mg IV daily ID E COLI bacteremia/severe sepsis Enterococcus in the urine: possible colonization vs. UTI. Acute Choledocholithiasis Biliary fluid gram-negative rods -Source of bacteremia could be pneumonia or UTI or cholecystitis -Zosyn, increased to 3 g every 6 hours - unclear if enterococcus is clinical UTI or colonization. -ID following -Follow-up sputum and repeat blood cultures, urine culture -Gallbladder u/s, shows gallstones HEME: acute thrombocytopenia: improving. -Most likely etiology is sepsis with consumption - HIT negative. Obtain serotonin release assay today - S/P doug tube 11/01 -Heparin infusion -Resume aspirin DVT GI prophylaxis -Vickey's and SCDs -Heparin infusion -Pepcid Dispo: needs to remain in ICU. all organ systems worsening, very critical with prognosis guarded. Critical Care: my billing statement This patient remains critically ill with one or more organ systems which are or may become a threat to life. I have spent in excess of 31 minutes discontinuously in the care and management of this patient. This time is exclusive of procedures, and includes, but is not limited to, evaluation of the patient, review of the medical record, discussions with family, consultants, nursing staff, or respiratory therapy, and documentation in the medical record. Physician Skylar Lang MD November 06, 2017 17:30
[2017-11-06 17:52] LABS: CERULOPLASMIN 24 mg/dL (18-36)
--- NOTE | 2017-11-06 20:18 | HHI.PR ---
Subjective Remarks 67 YOWM with COPD,Sepsis, ischemia of leg Developed RF, intubated sedated with Precedex Awake, wants tube out Tolerated CPAP CXr some improvement in lung infilt Objective Vital Signs Vital Signs Date Time Temp Pulse Resp B/P (MAP) Pulse Ox O2 Delivery O2 Flow Rate FiO2 11/06/17 18:00 58 11/06/17 16:00 45 11/06/17 16:00 98.0 11/06/17 16:00 49 11/06/17 15:17 99 45 11/06/17 14:04 51 14 149/68 (95) 94 11/06/17 14:04 51 11/06/17 14:00 50 11/06/17 14:00 50 15 97 11/06/17 13:30 53 11/06/17 13:30 53 14 145/66 (92) 96 11/06/17 13:00 50 11/06/17 13:00 50 10 130/60 (83) 93 11/06/17 12:30 53 11/06/17 12:30 53 10 136/63 (87) 92 11/06/17 12:17 94 50 11/06/17 12:01 60 10 122/58 (79) 92 11/06/17 12:01 60 11/06/17 12:00 61 11/06/17 12:00 55 11/06/17 12:00 98.2 61 15 88 11/06/17 11:30 65 15 122/58 (79) 98 11/06/17 11:30 65 11/06/17 11:01 74 18 148/75 (99) 94 11/06/17 11:01 74 11/06/17 10:32 75 18 181/80 (113) 95 11/06/17 10:32 75 11/06/17 10:00 72 11/06/17 10:00 72 19 145/68 (93) 95 11/06/17 09:30 72 11/06/17 09:30 72 18 165/67 (99) 98 11/06/17 09:00 74 17 147/65 (92) 99 11/06/17 09:00 74 11/06/17 08:30 63 10 125/60 (81) 97 11/06/17 08:30 63 11/06/17 08:00 64 11/06/17 08:00 64 13 134/62 (86) 98 11/06/17 08:00 55 11/06/17 07:54 98 55 11/06/17 07:00 55 11/06/17 06:00 69 11/06/17 04:00 98.5 62 20 157/95 (115) 97 11/06/17 04:00 55 11/06/17 04:00 62 11/06/17 03:52 99 50 11/06/17 02:00 61 11/06/17 00:27 98 55 11/06/17 00:00 58 11/06/17 00:00 98.2 58 18 134/64 (87) 95 11/06/17 00:00 55 11/05/17 22:00 65 11/05/17 20:18 98 55 I/O 11/05/17 11/05/17 11/05/17 11/06/17 11/06/17 11/06/17 07:00 15:00 23:00 07:00 15:00 23:00 Intake Total 833.0 ml 200 ml 585 ml 1021.8 ml 100 ml 768 ml Output Total 1010 ml 1660.0 ml 900 ml 2050 ml Balance -177.0 ml 200 ml -1075.0 ml 121.8 ml 100 ml -1282 ml IV Total 666.0 ml 200 ml 300 ml 621.8 ml 100 ml Tube Feeding 107 ml 165 ml 340 ml 568 ml Tube Irrigant 120 ml Other 60 ml 60 ml 200 ml Output Urine Total 900 ml 1550 ml 800 ml 1950 ml Tube Feeding Residual Discard 0 ml Drainage Total 110 ml 110 ml 100 ml 100 ml # Bowel Movements 1 0 1 4 Result Diagram: 11/06/17 0511 11/06/17 0511 Objective Remarks GENERAL: WBWN WM, On Vent, sedated SKIN: Warm and dry. HEAD: Normocephalic. EYES: No scleral icterus. No injection or drainage. NECK: Supple, trachea midline. No JVD or lymphadenopathy. CARDIOVASCULAR: Regular rate and rhythm without murmurs, gallops, or rubs. RESPIRATORY: Breath sounds equal bilaterally. No accessory muscle use. GASTROINTESTINAL: Abdomen soft, non-tender, nondistended. MUSCULOSKELETAL: No cyanosis, or edema. Cold left leg BACK: Nontender without obvious deformity. No CVA tenderness. A/P Assessment and Plan IMPRESSION: 1. Sepsis. 2. Chronic obstructive pulmonary disease, mild exacerbation. 3. Left basilar infiltrate. 4. Urinary tract infection 5. Encephalopathy. 6. Cold left leg. 7. Thrombocytopenia. 8. VDRF PLAN: Vent support Sedation with Precedex Cont Abx per ID Heparin drip Monitor Plt count Monitor renal functions CPAP and possible extubation in AM. Dennis Johnson MD November 06, 2017 20:18
[2017-11-06] MEDS: HYDROmorphone HCL PF 0.5 MG/0.5 ML SYRINGE IV PRN (21:28)
[2017-11-07] VITALS (25 sets, daily range): BP systolic 128–207; BP diastolic 63–91; PULSE 47–84; RESP 9–26; TEMP 97.9–98.8; O2SAT 92–99
[2017-11-07] MEDS: methylPREDNISolone SOD SUCC 40 MG/1 ML VIAL IV PUSH SCH ×5 (00:59→23:52)
[2017-11-07] MEDS: DEXMEDETOMIDINE INJ 200 MCG in SODIUM CHLORIDE 0.9% INJ 50 ML IV PRN ×2 (00:59→05:27)
[2017-11-07] MEDS: RESP: ALBUTEROL 2.5 MG/IPRATROPIUM 0.5 MG NEB (PRN) INH ×4 (02:21→20:49)
[2017-11-07] MEDS: RESP: ACETYLCYSTEINE 20% 30 ML NEB NEB SCH ×4 (02:21→20:49)
[2017-11-07] MEDS: CHLORHEXIDINE GLUCONATE 2 % 1 PACK (2 CLOTHS) TOP SCH (04:00)
[2017-11-07] MEDS: HYDROmorphone HCL PF 0.5 MG/0.5 ML SYRINGE IV PRN (05:15)
[2017-11-07] MEDS: hydrALAZINE HCL 25 MG TAB PO SCH ×4 (05:15→19:41)
[2017-11-07] MEDS: AMPICILLIN/SULBAC 3 GM/NS 100 ML IV SCH ×8 (05:20→19:42)
--- NOTE | 2017-11-07 06:51 | RADRPT ---
EXAM DATE: 11/07/2017 6:09 AM EDT AGE/SEX: 67 years / Male INDICATIONS: Shortness of breath, possible pulmonary disease. CLINICAL DATA: This is the patient's subsequent encounter. Patient reports that signs and symptoms h ave been present for 1 week and indicates a pain score of Nonresponsive. MEDICAL/SURGICAL HISTORY: Chronic obstructive pulmonary disease. Hiatal hernia. . Hernia repai r. [place] [facility] [place]. . FINDINGS: ET tube and NG tube have not changed. Left lung base opacity is present not significantly changed may represent pleural effusion. There is also mild pulmonary edema. Right pleural effusion is difficult to exclude. CONCLUSION: No appreciable change. Electronically signed by: Talya Sanders MD 11/07/2017 6:50 AM EDT
[2017-11-07 07:25] LABS: AUTOMATED NEUTROPHIL # 12.1 TH/MM3 (1.8-7.7); BASOPHIL % 0.3 % (0.0-2.0); HEMATOCRIT 30.7 % (39.0-51.0); HEMOGLOBIN 10.3 GM/DL (13.0-17.0); LYMPH % 3.7 % (9.0-44.0); LYMPHOCYTE # 0.5 TH/MM3 (1.0-4.8); MEAN CELL VOLUME 92.4 FL (80.0-100.0); MEAN CORPUSCULAR HEMOGLOBIN 30.9 PG (27.0-34.0); MEAN CORPUSCULAR HGB CONC 33.4 % (32.0-36.0); MEAN PLATELET VOLUME 10.8 FL (7.0-11.0); MONO % 3.3 % (0.0-8.0); MONOCYTE # 0.4 TH/MM3 (0-0.9); NEUT % 92.7 % (16.0-70.0); PLATELET COUNT 179 TH/MM3 (150-450); RED BLOOD COUNT 3.32 MIL/MM3 (4.50-5.90); RED CELL DISTRIBUTION WIDTH 13.6 % (11.6-17.2)
[2017-11-07 08:07] LABS: ALBUMIN 1.8 GM/DL (3.4-5.0); CALCIUM 7.3 MG/DL (8.5-10.1); CALCIUM-PROTEIN CORRECTED 8.7 MG/DL (8.5-10.1); CREATININE 1.34 MG/DL (0.60-1.30); TOTAL BILIRUBIN ADULT 4.1 MG/DL (0.2-1.0); TOTAL PROTEIN 4.7 GM/DL (6.4-8.2)
--- NOTE | 2017-11-07 08:12 | HHI.CCPN ---
Subjective Remarks/Hospital Course 67-year-old male presents to the emergency department via EMS for evaluation of shortness of breath and pain and numbness to the left leg. Patient believes that he is shortness of breath is related to the pain in his leg. He cannot feel his leg from his groin down. He denies any history of the same. He does report history of COPD. He denies any known fevers or chills. He denies chest pain. Patient received 1 L normal saline bolus via EMS. Patient denies any history of bleeding or blood clots. No recent surgery or travel. No hemoptysis. No history of DVT/PE. He denies leg edema. Patient states the pain is 10/10 to the left leg. No exacerbating or alleviating factors. Moderate severity. 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 The right inflow is heavily diseased as well. 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 SUBJ 10/29: Remains critically ill, encephalopathy. 4 out of 4 bottles positive for GNR. I will change Rocephin to Zosyn renally dosed to cover for Pseudomonas also. Continue azithromycin. Creatinine still elevated but slightly improved. WBC count slightly increased 17.2 now with 24% bands. Source of GNR sepsis could be either UTI or pneumonia. Will consult ID as well. Remains on IV heparin for acute left limb ischemia 10/30: platelets falling >50% again today. Cr still rising, but could be ATN/ contrast nephropathy. blood cultures growing e. coli by PCR, full speciation to follow. urine culture pending. discussed case with Dr. Lopez, will stop heparin , start argatroban and send HIT/CHARLEEN. denies complaints for me, but does have objective tenderness on palpation, RUQ. 10/31: Emergently intubated today a.m. by Dr. Puckett for worsening mental status, encephalopathy and worsening respiratory failure. Prior to intubation Dr. Puckett ' exam revealed right upper quadrant tenderness. Ultrasound of the gallbladder yesterday showed gallstones. Overnight Argatroban was supratherapeutic and was held, platelet count also dropped to 30,000, HIT screen is pending. Postintubation bilateral pupils are reactive but unequal. Will repeat CT of the head, CT abdomen pelvis. BUN 49/Creat 2.7, leukocytosis persisting 11/01: no improvements. ct abd/pelvis with evidence of possible choledocholithiasis. perc doug tube planned for this AM. on esmolol infusion for afib RVR. fio2 increased to 70%. 11/02: Sodium bicarbonate infusion continued per nephrology in the setting of rhabdomyolysis serial creatinine kinase pending. Cholecystostomy drain placement 100 cc overnight. Continued thrombocytopenia, CBC, serotonin release assay pending. Plan for reinitiation of heparin awaiting GI consultation for possible invasive procedures prior to restarting heparin. Patient sinus rhythm with occasional PAC's. 11/03: No acute events overnight. Sodium bicarbonate infusion discontinued this a.m. had any improved this a.m.. Chest x-ray showed worsening consolidation, FiO2 requirements were increased to 65% during the night. CPAP trials on hold currently. Biliary drainage from cholecystostomy tube revealing gram-negative rods. The patient continues on antibiotics. Bilateral dorsalis pedis pulses monophasic signals by Doppler. Heparin infusion reinitiated. 11/04: Sodium bicarbonate infusion discontinued at 7 AM yesterday. Chest x-ray worsening consolidation versus pleural effusions. FiO2 slightly decreased to 60 %, ABG improving. Pending quantification via ultrasound of pleural fluid in am. Lasix 40mg x1 additional dose provided today . PPN discontinued discussed with Dr. Colon tube feeds initiated at [facility]. Dietary consult ordered. 11/05: Afebrile. Patient tolerating tube feeds advanced to goal rate of 55 cc/ hr. chest x-ray with slight improvement FiO2 decreased to 55% ABG pending. Initiation of CPAP trial to be attempted today. 11/06: Late entry note. Patient seen at 628am. Patient was started on CPAP and continues on CPAP greater than 10 hours. Patient following commands, currently on Precedex infusion. 11/07: Patient remained on CPAP trials for approximately 12 hours yesterday and discontinued because of agitation. CPAP trials reinitiated this a.m. Patient complaint of sore throat Lortab ordered. Patient continues on Precedex for ventilator weaning process. Chest x-ray still shows pulmonary edema, additional dose Lasix 401 dose given this a.m.. When infusion continued, monophasic Doppler signals bilateral dorsalis pedal pulses noted. Objective Vital Signs Date Time Temp Pulse Resp B/P (MAP) Pulse Ox O2 Delivery O2 Flow Rate FiO2 11/07/17 06:00 54 11/07/17 04:00 97.9 14 173/76 (108) 97 11/07/17 04:00 40 Intake and Output 11/07/17 11/07/17 11/08/17 08:00 16:00 00:00 Intake Total 1181 ml Output Total 740 ml Balance 441 ml Result Diagram: 11/07/17 0620 11/06/17 0511 Other Results Laboratory Tests Test 11/07/17 04:05 Blood Gas Puncture Site LT RADIAL Blood Gas Patient Temperature 98.6 Blood Gas HCO3 29 mmol/L (22-26) Blood Gas Base Excess 5.2 mmol/L (-2-2) Blood Gas Oxygen Saturation 94 % (90-100) Arterial Blood pH 7.49 (7.380-7.420) Arterial Blood Partial Pressure CO2 38 mmHg (38-42) Arterial Blood Partial Pressure O2 89 mmHg (61-120) Arterial Blood Oxygen Content 14.1 Vol % (12.0-20.0) Arterial Blood Carboxyhemoglobin 1.4 % (0-4) Arterial Blood Methemoglobin 1.4 % (0-2) Blood Gas Hemoglobin 10.6 G/DL (12.0-16.0) Oxygen Delivery Device VENTILATOR Blood Gas Ventilator Setting 18/500/IT1.0/8PEEP Blood Gas Inspired Oxygen 40 % Imaging Last Impressions Chest X-Ray 11/07/17 0600 Signed Impressions: CONCLUSION: No appreciable change. Percutaneous Cholangiogram 11/01/17 Signed Impressions: CONCLUSION: 1. Uncomplicated percutaneous cholecystostomy as above. Abdomen/Pelvis CT 11/01/17 Signed Impressions: CONCLUSION: 1. Gallstones. There do appear to be areas of increased density within the com mon bile duct concerning for choledocholithiasis. 2. 4 mm nonobstructing left renal stone. 3. Sigmoid colon diverticula. 4. Bibasilar areas of consolidation or atelectasis being worse on the left wit h mild bilateral pleural effusions. Renal Ultrasound 10/31/17 Signed Impressions: CONCLUSION: 1. No hydronephrosis. 2. Increased cortical echogenicity consistent with medical renal disease. Head Magnetic Resonance Angiography 10/31/17 Signed Impressions: CONCLUSION: 1. Unremarkable MRA of the brain. Head CT 10/31/17 Signed Impressions: CONCLUSION: 1. Negative CT Head non contrast. 2. No evidence of acute infarct, hemorrhage, mass or edema. Brain MRI 10/31/17 Signed Impressions: CONCLUSION: 1. Senescent changes with minimal periventricular ischemic white matter demyel ination. 2. No acute abnormality. Specifically, no acute infarction, mass or hemorrhage . Gall Bladder Ultrasound 10/30/17 Signed Impressions: CONCLUSION: 1. Fatty infiltration of the liver. 2. Multiple stones in the gallbladder. No biliary tract obstruction. Extremity Arterial Study 10/28/17 Signed Impressions: CONCLUSION: 1. Abnormal ABIs, left greater than right. The left DAVID is significantly dimin ished at 0.14. Aorta w/Runoff CTA 10/28/17 Signed Impressions: Service Date/Time: Saturday, October 28, 2017 21:50 - CONCLUSION: 1. Acute occlusion of the left inflow with concern for short segment occlusion involving the distal right inflow. This raises concern for an embolic event. 2. Right lower extremity shows scattered disease throughout the common femoral artery, SFA and [id number] popliteal artery with three-vessel runoff to the foot. 3. Left lower extremity with reconstitution of the common femoral artery with diseased out flow and two vessel runoff to the foot as detailed above. 4. 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 5. Hepatic steatosis. 6. Cholelithiasis. Juanjose Mckeon Jr., MD Last Impressions Chest X-Ray 11/03/17 0600 Signed Impressions: CONCLUSION: Worsening parenchymal consolidation and small effusions at each lung base. Percutaneous Cholangiogram 11/01/17 Signed Impressions: CONCLUSION: 1. Uncomplicated percutaneous cholecystostomy as above. Abdomen/Pelvis CT 11/01/17 Signed Impressions: CONCLUSION: 1. Gallstones. There do appear to be areas of increased density within the com mon bile duct concerning for choledocholithiasis. 2. 4 mm nonobstructing left renal stone. 3. Sigmoid colon diverticula. 4. Bibasilar areas of consolidation or atelectasis being worse on the left wit h mild bilateral pleural effusions. Renal Ultrasound 10/31/17 Signed Impressions: CONCLUSION: 1. No hydronephrosis. 2. Increased cortical echogenicity consistent with medical renal disease. Head Magnetic Resonance Angiography 10/31/17 Signed Impressions: CONCLUSION: 1. Unremarkable MRA of the brain. Head CT 10/31/17 Signed Impressions: CONCLUSION: 1. Negative CT Head non contrast. 2. No evidence of acute infarct, hemorrhage, mass or edema. Brain MRI 10/31/17 Signed Impressions: CONCLUSION: 1. Senescent changes with minimal periventricular ischemic white matter demyel ination. 2. No acute abnormality. Specifically, no acute infarction, mass or hemorrhage . Gall Bladder Ultrasound 10/30/17 Signed Impressions: CONCLUSION: 1. Fatty infiltration of the liver. 2. Multiple stones in the gallbladder. No biliary tract obstruction. Extremity Arterial Study 10/28/17 Signed Impressions: CONCLUSION: 1. Abnormal ABIs, left greater than right. The left DAVID is significantly dimin ished at 0.14. Aorta w/Runoff CTA 10/28/17 Signed Impressions: Service Date/Time: Saturday, October 28, 2017 21:50 - CONCLUSION: 1. Acute occlusion of the left inflow with concern for short segment occlusion involving the distal right inflow. This raises concern for an embolic event. 2. Right lower extremity shows scattered disease throughout the common femoral artery, SFA and [id number] popliteal artery with three-vessel runoff to the foot. 3. Left lower extremity with reconstitution of the common femoral artery with diseased out flow and two vessel runoff to the foot as detailed above. 4. 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 5. Hepatic steatosis. 6. Cholelithiasis. Juanjose Mckeon Jr., MD Last Impressions Percutaneous Cholangiogram 11/01/17 Signed Impressions: CONCLUSION: 1. Uncomplicated percutaneous cholecystostomy as above. Abdomen/Pelvis CT 11/01/17 Signed Impressions: CONCLUSION: 1. Gallstones. There do appear to be areas of increased density within the com mon bile duct concerning for choledocholithiasis. 2. 4 mm nonobstructing left renal stone. 3. Sigmoid colon diverticula. 4. Bibasilar areas of consolidation or atelectasis being worse on the left wit h mild bilateral pleural effusions. Renal Ultrasound 10/31/17 Signed Impressions: CONCLUSION: 1. No hydronephrosis. 2. Increased cortical echogenicity consistent with medical renal disease. Head Magnetic Resonance Angiography 10/31/17 Signed Impressions: CONCLUSION: 1. Unremarkable MRA of the brain. Head CT 10/31/17 Signed Impressions: CONCLUSION: 1. Negative CT Head non contrast. 2. No evidence of acute infarct, hemorrhage, mass or edema. Chest X-Ray 10/31/17 Signed Impressions: CONCLUSION: Satisfactory position of endotracheal and nasogastric tubes. Increasing airspace disease and bilateral effusions. Brain MRI 10/31/17 Signed Impressions: CONCLUSION: 1. Senescent changes with minimal periventricular ischemic white matter demyel ination. 2. No acute abnormality. Specifically, no acute infarction, mass or hemorrhage . Gall Bladder Ultrasound 10/30/17 Signed Impressions: CONCLUSION: 1. Fatty infiltration of the liver. 2. Multiple stones in the gallbladder. No biliary tract obstruction. Extremity Arterial Study 10/28/17 Signed Impressions: CONCLUSION: 1. Abnormal ABIs, left greater than right. The left DAVID is significantly dimin ished at 0.14. Aorta w/Runoff CTA 10/28/17 Signed Impressions: Service Date/Time: Saturday, October 28, 2017 21:50 - CONCLUSION: 1. Acute occlusion of the left inflow with concern for short segment occlusion involving the distal right inflow. This raises concern for an embolic event. 2. Right lower extremity shows scattered disease throughout the common femoral artery, SFA and [id number]-yloc popliteal artery with three-vessel runoff to the foot. 3. Left lower extremity with reconstitution of the common femoral artery with diseased out flow and two vessel runoff to the foot as detailed above. 4. 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 5. Hepatic steatosis. 6. Cholelithiasis. Juanjose Mckeon Jr., MD Last 24 hours Impressions Chest X-Ray 10/28/172010 Signed Impressions: Service Date/Time: Saturday, October 28, 2017 20:20 - CONCLUSION: Left lower lobe infiltrate. Mild cardiomegaly. Juanjose Mckeon Jr., MD Objective Remarks GENERAL: This is a well-developed well-nourished middle-aged male, currently intubated, alert awake nodding yes and no to questions SKIN: Warm and dry. HEAD: Normocephalic. ENT: No scleral icterus. No injection or drainage. Pupils are now equal at 3mm, reactive. Orotracheally intubated NECK: Supple, trachea midline. No JVD. CARDIOVASCULAR: Regular rate regular rhythm. RESPIRATORY: Intubated. PRVC/AC. Air entry equal no significant wheezes. fio2 65%. GASTROINTESTINAL: Abdomen soft, mildly distended. no guarding. This ostomy tube draining bilious fluid MUSCULOSKELETAL: No cyanosis, or edema. Left foot cool to touch. Bilateral DP with Doppler NEURO EXAM: Intubated, RASS -1. Moving extremities 4. Following commands. A/P Assessment and Plan ASSESSMENT/PLAN: NEURO: Acute metabolic encephalopathy -Intubated for airway protection and worsening respiratory failure -Propofol for sedation and vent synchrony -No sedation vacation until metabolic encephalopathy and sepsis improved -10/31 CT of the head- negative RESP: Acute hypoxemic respiratory failure COPD exacerbation Left lower lobe pneumonia ARDS -Emergently intubated and placed on mechanical ventilation 10/31/2017 -PRVC/AC, DuoNeb scheduled and as needed, ventilator bundle, head of bed elevation to 30 -Steroids IV. Pulmonary consultation: Dr. Johnson following - CT mild B/L pleural effusion -Continue CPAP trials, plan for SBT this afternoon -Continue Zosyn -11/07 chest [id number]-[id number] edema, possible left pleural effusion -11/07 obtain ultrasound chest marking left CVS: Acute on chronic left limb ischemia Afib with RVR HTN -CTA showed severe aorto-iliac occlusive disease with left iliac thrombosis -Significant calcifications and peripheral vascular disease -2D echo: EF 50%, no significant valvular lesions. left sided pleural effusion -Heparin infusion per protocol -HIT screen negative. CHARLEEN -negative -Labetalol 100 mg twice daily -Telemetry sinus rhythm GI Acute hepatic dysfunction Hyperbilirubinemia Transaminitis Acute Choledocholithiasis -Trend LFTs, gallbladder ultrasound showed multiple gallstones -Most likely secondary to severe sepsis. -Repeat CT abdomen/pelvis 10/31: c/w choledocholithiasis - GI consult. may need ERCP as well. 11/02-Dr. Camarillo, no invasive intervention at this time -Tube feeds Jevity 1.5 goal rate 55 cc/hour -Cholecystostomy tube draining Acute kidney injury Acute metabolic acidosis -Nephrology following -Sodium bicarbonate infusion discontinued 11/03. -Hydration, Strict I's and O's -Continue Lasix 40 mg IV daily ID E COLI bacteremia/severe sepsis Enterococcus in the urine: possible colonization vs. UTI. Acute Choledocholithiasis Biliary fluid gram-negative rods -Source of bacteremia could be pneumonia or UTI or cholecystitis -Zosyn, increased to 3 g every 6 hours - unclear if enterococcus is clinical UTI or colonization. -ID following -Follow-up sputum and repeat blood cultures, urine culture -Gallbladder u/s, shows gallstones HEME: acute thrombocytopenia: improving. -Most likely etiology is sepsis with consumption - HIT negative. CHARLEEN negative - S/P doug tube 11/01 -Heparin infusion continued -Resume aspirin DVT GI prophylaxis -Vickey's and SCDs -Heparin infusion -Pepcid Dispo: needs to remain in ICU. all organ systems worsening, very critical with prognosis guarded. Critical Care: my billing statement This patient remains critically ill with one or more organ systems which are or may become a threat to life. I have spent in excess of 35 minutes discontinuously in the care and management of this patient. This time is exclusive of procedures, and includes, but is not limited to, evaluation of the patient, review of the medical record, discussions with family, consultants, nursing staff, or respiratory therapy, and documentation in the medical record. Physician Skylar Lang MD November 07, 2017 08:12
[2017-11-07] MEDS: DOCUSATE SODIUM 50 MG/SENNA 8.6 MG TAB PO SCH ×2 (08:21→19:41)
[2017-11-07] MEDS: FAMOTIDINE 20 MG/2 ML VIAL IV PUSH SCH ×2 (08:21→19:41)
[2017-11-07] MEDS: LABETALOL HCL 100 MG TAB PO SCH ×2 (08:21→19:41)
[2017-11-07] MEDS: FUROSEMIDE 40 MG/4 ML VIAL IV PUSH SCH (08:21)
[2017-11-07] MEDS: ASPIRIN 81 MG CHEW TAB CHEW SCH (08:21)
[2017-11-07] MEDS: CHLORHEXIDINE 0.12% (ORAL KIT) 15 ML CUP MT SCH ×2 (08:21→19:42)
[2017-11-07] MEDS: SODIUM CHLORIDE 0.9% FLUSH 10 ML FLUSH IV FLUSH SCH ×2 (08:22→19:41)
[2017-11-07] MEDS ORDERED: FUROSEMIDE 40 MG/4 ML VIAL IV PUSH ONE (08:45)
[2017-11-07] MEDS: ACETAMINOPHEN/HYDROcodone 325 MG/7.5 MG TAB PO PRN ×2 (09:06→12:05)
--- NOTE | 2017-11-07 11:53 | RADRPT ---
EXAM DATE: 11/07/2017 10:59 AM EDT AGE/SEX: 67 years / Male INDICATIONS: Left pleural effusion. Marking. CLINICAL DATA: This is the patient's initial encounter. Patient reports that signs and symptoms have been present for 1 day and indicates a pain score of Nonresponsive. MEDICAL/SURGICAL HISTORY: Chronic obstructive pulmonary disease. Dyspnea. 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 Pneumonia. Sepsis. . Hernia repair. COMPARISON: No prior [facility] exams available for comparison. [facility], XR chest, 23-04-07 MEASUREMENTS: Skin To Parietal Pleura:__2.0 cm Skin To Max Safe Depth:__3.2 cm Estimated Fluid Volume:__561 cc Fluid Composition:__simple FINDINGS: Pleural effusion as above. A marking was placed on the skin of the left chest. CONCLUSION: 1. Left-sided pleural effusion. Electronically signed by: Fabian Montesinos MD 11/07/2017 11:51 AM EDT
--- NOTE | 2017-11-07 12:30 | HHI.GIFU ---
Subjective Remarks Pt awake on vent Per RN plans to extubate today TF turned off for possible extubation (Annika Tenorio) Objective Vitals I&O Vital Signs Date Time Temp Pulse Resp B/P (MAP) Pulse Ox O2 Delivery O2 Flow Rate FiO2 11/07/17 08:11 99 40 11/07/17 08:11 40 11/07/17 06:00 54 11/07/17 04:00 97.9 54 14 173/76 (108) 97 11/07/17 04:00 54 11/07/17 04:00 40 11/07/17 03:30 95 40 11/07/17 02:00 49 11/07/17 00:00 98.8 47 18 149/67 (94) 93 11/07/17 00:00 50 11/07/17 00:00 40 11/06/17 23:05 95 40 11/06/17 22:00 50 11/06/17 22:00 16 11/06/17 20:00 40 11/06/17 20:00 61 11/06/17 20:00 97.7 61 17 146/82 (103) 96 11/06/17 19:27 98 40 11/06/17 18:00 58 11/06/17 16:00 45 11/06/17 16:00 98.0 11/06/17 16:00 49 11/06/17 15:17 99 45 11/06/17 14:04 51 14 149/68 (95) 94 11/06/17 14:04 51 11/06/17 14:00 50 11/06/17 14:00 50 15 97 11/06/17 13:30 53 11/06/17 13:30 53 14 145/66 (92) 96 11/06/17 13:00 50 11/06/17 13:00 50 10 130/60 (83) 93 11/06/17 12:30 53 11/06/17 12:30 53 10 136/63 (87) 92 I/O 11/06/17 11/06/17 11/06/17 11/07/17 11/07/17 11/07/17 07:00 15:00 23:00 07:00 15:00 23:00 Intake Total 1021.8 ml 100 ml 768 ml 1181 ml Output Total 900 ml 2050 ml 740 ml Balance 121.8 ml 100 ml -1282 ml 441 ml IV Total 621.8 ml 100 ml 563 ml Tube Feeding 340 ml 568 ml 618 ml Other 60 ml 200 ml Output Urine Total 800 ml 1950 ml 650 ml Drainage Total 100 ml 100 ml 90 ml # Bowel Movements 1 4 Laboratory Laboratory Tests Test 11/07/17 04:05 11/07/17 06:20 11/07/17 08:15 Blood Gas Puncture Site LT RADIAL Blood Gas Patient Temperature 98.6 Blood Gas HCO3 29 Blood Gas Base Excess 5.2 Blood Gas Oxygen Saturation 94 Arterial Blood pH 7.49 Arterial Blood Partial Pressure CO2 38 Arterial Blood Partial Pressure O2 89 Arterial Blood Oxygen Content 14.1 Arterial Blood Carboxyhemoglobin 1.4 Arterial Blood Methemoglobin 1.4 Blood Gas Hemoglobin 10.6 Oxygen Delivery Device VENTILATOR Blood Gas Ventilator Setting 18/500/IT1.0/8PEEP Blood Gas Inspired Oxygen 40 White Blood Count 13.0 Red Blood Count 3.32 Hemoglobin 10.3 Hematocrit 30.7 Mean Corpuscular Volume 92.4 Mean Corpuscular Hemoglobin 30.9 Mean Corpuscular Hemoglobin Concent 33.4 Red Cell Distribution Width 13.6 Platelet Count 179 Mean Platelet Volume 10.8 Neutrophils (%) (Auto) 92.7 Lymphocytes (%) (Auto) 3.7 Monocytes (%) (Auto) 3.3 Eosinophils (%) (Auto) 0.0 Basophils (%) (Auto) 0.3 Neutrophils # (Auto) 12.1 Lymphocytes # (Auto) 0.5 Monocytes # (Auto) 0.4 Eosinophils # (Auto) 0.0 Basophils # (Auto) 0.0 CBC Comment DIFF FINAL Differential Comment Blood Urea Nitrogen 53 Creatinine 1.34 Random Glucose 176 Total Protein 4.7 Albumin 1.8 Calcium Level 7.3 Alkaline Phosphatase 57 Aspartate Amino Transf (AST/SGOT) 71 Alanine Aminotransferase (ALT/SGPT) 88 Total Bilirubin 4.1 Sodium Level 146 Potassium Level 3.7 Chloride Level 107 Carbon Dioxide Level 27.0 Anion Gap 12 Estimat Glomerular Filtration Rate 53 Protein Corrected Calcium 8.7 Urine Eosinophils NONE SEEN Date/Time Source Procedure Growth Status 10/30/17 20:38 Blood Peripheral Aerobic Blood Culture - Final NO GROWTH IN 5 DAYS Complete 10/30/17 20:38 Blood Peripheral Anaerobic Blood Culture - Final NO GROWTH IN 5 DAYS Complete 11/01/17 11:05 Fluid Other Gram Stain - Final Complete 11/01/17 11:05 Fluid Other Body Fluid Culture - Final Complete 11/04/17 05:08 Stool Stool Stool Occult Blood (NUBIA) - Final HEMOCCULT POSITIVE Complete 10/31/17 10:40 Sputum Endotracheal Gram Stain - Final Complete 10/31/17 10:40 Sputum Endotracheal Sputum Culture - Final HEAVY GROWTH NORMAL RESPIRATORY TERRELL Complete 10/29/17 00:00 Urine Catheterized Urine Urine Culture - Final Enterococcus Faecalis Complete Imaging Last Impressions Chest X-Ray 11/07/17 0600 Signed Impressions: CONCLUSION: No appreciable change. Chest Ultrasound 11/07/17 Signed Impressions: CONCLUSION: 1. Left-sided pleural effusion. Percutaneous Cholangiogram 11/01/17 Signed Impressions: CONCLUSION: 1. Uncomplicated percutaneous cholecystostomy as above. Abdomen/Pelvis CT 11/01/17 Signed Impressions: CONCLUSION: 1. Gallstones. There do appear to be areas of increased density within the com mon bile duct concerning for choledocholithiasis. 2. 4 mm nonobstructing left renal stone. 3. Sigmoid colon diverticula. 4. Bibasilar areas of consolidation or atelectasis being worse on the left wit h mild bilateral pleural effusions. Renal Ultrasound 10/31/17 Signed Impressions: CONCLUSION: 1. No hydronephrosis. 2. Increased cortical echogenicity consistent with medical renal disease. Head Magnetic Resonance Angiography 10/31/17 Signed Impressions: CONCLUSION: 1. Unremarkable MRA of the brain. Head CT 10/31/17 Signed Impressions: CONCLUSION: 1. Negative CT Head non contrast. 2. No evidence of acute infarct, hemorrhage, mass or edema. Brain MRI 10/31/17 Signed Impressions: CONCLUSION: 1. Senescent changes with minimal periventricular ischemic white matter demyel ination. 2. No acute abnormality. Specifically, no acute infarction, mass or hemorrhage . Gall Bladder Ultrasound 10/30/17 Signed Impressions: CONCLUSION: 1. Fatty infiltration of the liver. 2. Multiple stones in the gallbladder. No biliary tract obstruction. Extremity Arterial Study 10/28/17 Signed Impressions: CONCLUSION: 1. Abnormal ABIs, left greater than right. The left DAVID is significantly dimin ished at 0.14. Aorta w/Runoff CTA 10/28/17 Signed Impressions: Service Date/Time: Saturday, October 28, 2017 21:50 - CONCLUSION: 1. Acute occlusion of the left inflow with concern for short segment occlusion involving the distal right inflow. This raises concern for an embolic event. 2. Right lower extremity shows scattered disease throughout the common femoral artery, SFA and [id number] popliteal artery with three-vessel runoff to the foot. 3. Left lower extremity with reconstitution of the common femoral artery with diseased out flow and two vessel runoff to the foot as detailed above. 4. 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 5. Hepatic steatosis. 6. Cholelithiasis. Juanjose Mckeon Jr., MD Physical Exam HEENT: Normocephalic; atraumatic (+) icterus CHEST - Tolerating CPAP trial CARDIAC: RRR ABDOMEN: Distended, soft, bowel sounds active, OG clamped. Biliary drain with good drainage. SKIN: Normal; no rash; no jaundice. BUSINESS CONSULT: Awake (Annika Tenorio) Assessment and Plan Assessment: (1) Sepsis ICD Codes: A41.9 - Sepsis, unspecified organism Status: Acute Plan Assessment: - Choledocholithiasis with elevated LFTs, trending down CT abdomen WO IV contrast (11/01) --> Gallstones, appears to be areas of increased density within the common bile duct concerning for choledocholithiasis. S/P IR for percutaneous cholecystostomy drain on 11/01 - Culture with heavy growth of gram positive and gram negative enteric terrell, no further work up Pt on Unasyn - Elevated LFTs- likely secondary to obstruction from above but liver work up pending Iron-145 TIBC-214 %sat-67.7 Ferritin-248 AFP-6.9 Hepatitis panel negative [place], AMA, ASMA, ceruloplasmin, AAT pending - Anemia, normocytic- with Hemoccult positive stools- no obvious GIB - Cold left leg- Heparin gtt (11/05) Remains sedated and intubated. Increase in t bili noted today. Cholecystostomy tube draining dark colored bile. MRCP vs ERCP when stable, pt still on 60% FiO2. Trickle TF running, Jevity 1.5 @ 10 mL/hr, PPN decreased. (11/06) Remains sedated an intubated. No repeat hepatic function panel from today. Tolerating TF at goal. Remains on hepatin gtt (11/07) Pt awake, tolerating CPAP trial, plans for extubation today. Cholecystostomy drain with good output. Increase in bili and LFTs noted today. ERCP depending on extubation and clinical status. Remains on heparin gtt. Plan ERCP when stable Monitor output from cholecystostomy drain Monitor LFTs Antibiotics per ID Monitor H/H Notify GI if any obvious GIB Of note, on Heparin gtt Further recommendations based on clinical course Pt has been seen and examined by myself and Dr. Romo and this note is written on his behalf (Annika Tenorio) Physician Comments Agree with above, ercp next week. Monitor for signs of bleeding. Monitor labs. (Nik Romo MD) Problem Qualifiers (1) Sepsis: Qualified Codes: A41.9 - Sepsis, unspecified organism Annika Tenorio November 07, 2017 12:30 Nik Romo MD November 07, 2017 14:01
--- NOTE | 2017-11-07 19:50 | HHI.PR ---
Subjective Remarks 67 YOWM with COPD,Sepsis, ischemia of leg Developed RF, intubated Extubated On NC mild sob cough, occ sp No Fever Objective Vital Signs Vital Signs Date Time Temp Pulse Resp B/P (MAP) Pulse Ox O2 Delivery O2 Flow Rate FiO2 11/07/17 18:00 84 11/07/17 17:00 80 11/07/17 17:00 80 11 147/67 (93) 92 11/07/17 16:01 81 11/07/17 16:01 81 24 159/91 (113) 93 11/07/17 16:00 79 15 93 11/07/17 16:00 79 11/07/17 15:27 96 Nasal Cannula 3.00 11/07/17 15:00 77 11/07/17 14:00 83 11/07/17 14:00 83 16 146/67 (93) 92 11/07/17 13:38 96 Nasal Cannula 3.00 11/07/17 13:38 96 Nasal Cannula 3 11/07/17 13:00 76 11/07/17 13:00 76 14 128/64 (85) 97 11/07/17 12:40 97 40 11/07/17 12:01 78 11/07/17 12:01 78 15 134/63 (86) 99 11/07/17 12:00 77 17 99 11/07/17 12:00 40 11/07/17 12:00 77 11/07/17 11:00 69 11/07/17 11:00 69 26 146/67 (93) 97 11/07/17 10:00 73 17 150/66 (94) 98 11/07/17 10:00 73 11/07/17 09:00 64 10 140/67 (91) 98 11/07/17 09:00 64 11/07/17 08:11 99 40 11/07/17 08:11 40 11/07/17 08:00 40 11/07/17 08:00 64 9 140/65 (90) 99 11/07/17 08:00 64 11/07/17 06:00 54 11/07/17 04:00 97.9 54 14 173/76 (108) 97 11/07/17 04:00 54 11/07/17 04:00 40 11/07/17 03:30 95 40 11/07/17 02:00 49 11/07/17 00:00 98.8 47 18 149/67 (94) 93 11/07/17 00:00 50 11/07/17 00:00 40 11/06/17 23:05 95 40 11/06/17 22:00 50 11/06/17 22:00 16 11/06/17 20:00 40 11/06/17 20:00 61 11/06/17 20:00 97.7 61 17 146/82 (103) 96 I/O 11/06/17 11/06/17 11/06/17 11/07/17 11/07/17 11/07/17 07:00 15:00 23:00 07:00 15:00 23:00 Intake Total 1021.8 ml 100 ml 768 ml 1181 ml 200 ml 262 ml Output Total 900 ml 2050 ml 740 ml 1300 ml Balance 121.8 ml 100 ml -1282 ml 441 ml 200 ml -1038 ml IV Total 621.8 ml 100 ml 563 ml 200 ml Tube Feeding 340 ml 568 ml 618 ml 142 ml Other 60 ml 200 ml 120 ml Output Urine Total 800 ml 1950 ml 650 ml 1300 ml Drainage Total 100 ml 100 ml 90 ml # Bowel Movements 1 4 8 Result Diagram: 11/07/1761911/07/17619 Objective Remarks GENERAL: WBWN WM, mild sob SKIN: Warm and dry. HEAD: Normocephalic. EYES: No scleral icterus. No injection or drainage. NECK: Supple, trachea midline. No JVD or lymphadenopathy. CARDIOVASCULAR: Regular rate and rhythm without murmurs, gallops, or rubs. RESPIRATORY: Breath sounds equal bilaterally. No accessory muscle use. GASTROINTESTINAL: Abdomen soft, non-tender, nondistended. MUSCULOSKELETAL: No cyanosis, or edema. Cold left leg BACK: Nontender without obvious deformity. No CVA tenderness. A/P Assessment and Plan IMPRESSION: 1. Sepsis. 2. Chronic obstructive pulmonary disease, mild exacerbation. 3. Left basilar infiltrate. 4. Urinary tract infection 5. Encephalopathy. 6. Cold left leg. 7. Thrombocytopenia. 8. VDRF--extubated 11/07 PLAN: Cont Abx per ID Heparin drip Monitor Plt count Monitor renal functions Supplement 09 October need PRODUCT/DEVICE TECHNOLOGIST eval. Dennis Johnson MD November 07, 2017 19:50
[2017-11-07 19:53] LABS: MITOCHONDRIAL ABS LESS THAN 20.0 U (<=20.0)
[2017-11-07] MEDS: HEPARIN-D5W 25,000 U/250 ML 250 ML IV PRN (23:52)
[2017-11-08] VITALS (14 sets, daily range): BP systolic 145–175; BP diastolic 65–79; PULSE 69–85; RESP 11–18; TEMP 98–98.9; O2SAT 91–100
[2017-11-08] MEDS: AMPICILLIN/SULBAC 3 GM/NS 100 ML IV SCH ×8 (01:24→20:33)
[2017-11-08] MEDS: RESP: ACETYLCYSTEINE 20% 30 ML NEB NEB SCH ×4 (03:45→20:48)
[2017-11-08] MEDS: RESP: ALBUTEROL 2.5 MG/IPRATROPIUM 0.5 MG NEB (PRN) INH ×4 (03:45→20:48)
[2017-11-08] MEDS: CHLORHEXIDINE GLUCONATE 2 % 1 PACK (2 CLOTHS) TOP SCH (04:00)
[2017-11-08] MEDS: methylPREDNISolone SOD SUCC 40 MG/1 ML VIAL IV PUSH SCH ×4 (05:11→23:48)
[2017-11-08] MEDS: hydrALAZINE HCL 25 MG TAB PO SCH ×3 (05:11→20:33)
--- NOTE | 2017-11-08 06:10 | RADRPT ---
EXAM DATE: 11/08/2017 5:06 AM EDT AGE/SEX: 67 years / Male INDICATIONS: Shortness of breath. CLINICAL DATA: This is the patient's subsequent encounter. Patient reports that signs and symptoms h ave been present for 1 week and indicates a pain score of 0/10. MEDICAL/SURGICAL HISTORY: . Chronic obstructive pulmonary disease. Hiatal hernia. . Hernia rep air COMPARISON: [facility] [place], CHEST SINGLE AP, 11/07/2017. . FINDINGS: There is bilateral mostly basilar airspace disease. Cardiomegaly. Small effusions. No pneumothorax. P revious endotracheal tube and nasogastric tube have been removed. CONCLUSION: Removal of previous endotracheal tube and nasogastric tube. Basilar airspace disease and pleural effu sions persist. Electronically signed by: Christopher Kaur MD 11/08/2017 6:09 AM EDT
[2017-11-08 08:00] LABS: HEMATOCRIT 28.2 % (39.0-51.0); HEMOGLOBIN 9.5 GM/DL (13.0-17.0); MEAN CELL VOLUME 92.1 FL (80.0-100.0); MEAN CORPUSCULAR HGB CONC 33.7 % (32.0-36.0); MEAN PLATELET VOLUME 10.5 FL (7.0-11.0); PLATELET COUNT 195 TH/MM3 (150-450); RED BLOOD COUNT 3.06 MIL/MM3 (4.50-5.90); RED CELL DISTRIBUTION WIDTH 13.7 % (11.6-17.2); WHITE BLOOD COUNT 14.5 TH/MM3 (4.0-11.0)
[2017-11-08] MEDS: CHLORHEXIDINE 0.12% (ORAL KIT) 15 ML CUP MT SCH ×2 (08:00→20:00)
[2017-11-08 08:33] LABS: BICARBONATE 26.5 MEQ/L (21.0-32.0); CALCIUM 7.5 MG/DL (8.5-10.1); CREATININE 1.36 MG/DL (0.60-1.30); MAGNESIUM 2.4 MG/DL (1.5-2.5); PHOSPHORUS 3.6 MG/DL (2.5-4.9)
[2017-11-08] MEDS: DOCUSATE SODIUM 50 MG/SENNA 8.6 MG TAB PO SCH (09:00)
--- NOTE | 2017-11-08 09:29 | HHI.CCPN ---
Subjective Remarks/Hospital Course 67-year-old male presents to the emergency department via EMS for evaluation of shortness of breath and pain and numbness to the left leg. Patient believes that he is shortness of breath is related to the pain in his leg. He cannot feel his leg from his groin down. He denies any history of the same. He does report history of COPD. He denies any known fevers or chills. He denies chest pain. Patient received 1 L normal saline bolus via EMS. Patient denies any history of bleeding or blood clots. No recent surgery or travel. No hemoptysis. No history of DVT/PE. He denies leg edema. Patient states the pain is 10/10 to the left leg. No exacerbating or alleviating factors. Moderate severity. 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 The right inflow is heavily diseased as well. The patient was evaluated by vascular surgeon medication care manager and was immediately started on heparin drip. SUBJ 10/29: Remains critically ill, encephalopathy. 4 out of 4 bottles positive for GNR. I will change Rocephin to Zosyn renally dosed to cover for Pseudomonas also. Continue azithromycin. Creatinine still elevated but slightly improved. WBC count slightly increased 17.2 now with 24% bands. Source of GNR sepsis could be either UTI or pneumonia. Will consult ID as well. Remains on IV heparin for acute left limb ischemia 10/30: platelets falling >50% again today. Cr still rising, but could be ATN/ contrast nephropathy. blood cultures growing e. coli by PCR, full speciation to follow. urine culture pending. discussed case with Dr. Lopez, will stop heparin , start argatroban and send HIT/CHARLEEN. denies complaints for me, but does have objective tenderness on palpation, RUQ. 10/31: Emergently intubated today a.m. by Dr. Puckett for worsening mental status, encephalopathy and worsening respiratory failure. Prior to intubation Dr. Puckett ' exam revealed right upper quadrant tenderness. Ultrasound of the gallbladder yesterday showed gallstones. Overnight Argatroban was supratherapeutic and was held, platelet count also dropped to 30,000, HIT screen is pending. Postintubation bilateral pupils are reactive but unequal. Will repeat CT of the head, CT abdomen pelvis. BUN 49/Creat 2.7, leukocytosis persisting 11/01: no improvements. ct abd/pelvis with evidence of possible choledocholithiasis. perc doug tube planned for this AM. on esmolol infusion for afib RVR. fio2 increased to 70%. 11/02: Sodium bicarbonate infusion continued per nephrology in the setting of rhabdomyolysis serial creatinine kinase pending. Cholecystostomy drain placement 100 cc overnight. Continued thrombocytopenia, CBC, serotonin release assay pending. Plan for reinitiation of heparin awaiting GI consultation for possible invasive procedures prior to restarting heparin. Patient sinus rhythm with occasional PAC's. 11/03: No acute events overnight. Sodium bicarbonate infusion discontinued this a.m. had any improved this a.m.. Chest x-ray showed worsening consolidation, FiO2 requirements were increased to 65% during the night. CPAP trials on hold currently. Biliary drainage from cholecystostomy tube revealing gram-negative rods. The patient continues on antibiotics. Bilateral dorsalis pedis pulses monophasic signals by Doppler. Heparin infusion reinitiated. 11/04: Sodium bicarbonate infusion discontinued at 7 AM yesterday. Chest x-ray worsening consolidation versus pleural effusions. FiO2 slightly decreased to 60 %, ABG improving. Pending quantification via ultrasound of pleural fluid in am. Lasix 40mg x1 additional dose provided today . PPN discontinued discussed with Dr. Colon tube feeds initiated at [facility]. Dietary consult ordered. 11/05: Afebrile. Patient tolerating tube feeds advanced to goal rate of 55 cc/ hr. chest x-ray with slight improvement FiO2 decreased to 55% ABG pending. Initiation of CPAP trial to be attempted today. 11/06: Late entry note. Patient seen at 628am. Patient was started on CPAP and continues on CPAP greater than 10 hours. Patient following commands, currently on Precedex infusion. 11/07: Patient remained on CPAP trials for approximately 12 hours yesterday and discontinued because of agitation. CPAP trials reinitiated this a.m. Patient complaint of sore throat Lortab ordered. Patient continues on Precedex for ventilator weaning process. Chest x-ray still shows pulmonary edema, additional dose Lasix 401 dose given this a.m.. When infusion continued, monophasic Doppler signals bilateral dorsalis pedal pulses noted. 11/08: Afebrile . Patient successfully extubated yesterday. Remains on O2 at 4 L nasal cannula O2 saturation 94-95%. Patient continues on heparin infusion, she was noted to have 9 BMs last evening plan for serial H&H's concern for possible stool with occult blood. Repeat stool for occult blood. Plan for possible bedside thoracentesis ,if respiratory requirements increase, currently on O2 4 L via nasal cannula in no apparent distress. Objective Vital Signs Date Time Temp Pulse Resp B/P (MAP) Pulse Ox O2 Delivery O2 Flow Rate FiO2 11/08/17 08:18 93 Nasal Cannula 3.00 11/08/17 06:00 78 11/08/17 04:00 98.3 17 162/71 (101) 11/07/17 12:40 40 Intake and Output 11/08/17 11/08/17 11/09/17 08:00 16:00 00:00 Intake Total 100 ml Output Total 1000 ml Balance -900 ml Result Diagram: 11/08/17 0724 11/08/17 0724 Imaging Current Medications Medications (Trade) Dose Ordered Sig/Olesya Route Start Time Stop Time Status Last Admin (NS Flush) 2 ml UNSCH PRN IV FLUSH 10/28/17 22:15 (NS Flush) 2 ml BID IV FLUSH 10/29/17 09:00 11/07/17 19:41 (Tylenol) 650 mg Q6H PRN PO 10/28/17 22:15 (Dilaudid Pf Inj) 1 mg Q4H PRN IV 10/28/17 22:30 11/07/17 05:15 (Zofran Inj) 4 mg Q6H PRN IV PUSH 10/28/17 22:15 (Restoril) 15 mg HS PRN PO 10/28/17 22:15 Future Hold (Duoneb Neb) 1 ampule Q2HR NEB PRN INH 10/28/17 22:15 11/08/17 08:15 ([facility]) 1 Q361D XX 10/28/17 22:15 10/28/17 22:15 (Chlorhexidine 2% Cloth) Taper DAILY@04 TOP 10/29/17 04:00 10/25/18 03:59 11/08/17 04:00 (Chlorhexidine 2% Cloth) 3 pack UNSCH PRN TOP 10/28/17 22:15 (Elvira-Colace) 1 tab BID PO 10/29/17 09:00 11/07/17 08:21 (Milk Of Magnesia Liq) 30 ml Q12H PRN PO 10/28/17 22:15 (Senokot) 17.2 mg Q12H PRN PO 10/28/17 22:15 (Dulcolax Supp) 10 mg DAILY PRN RECTAL 10/28/17 22:15 (Lactulose Liq) 30 ml DAILY PRN PO 10/28/17 22:15 (SoluMEDROL INJ) 40 mg Q6HR IV PUSH 10/29/17 00:00 11/08/17 05:11 (Cardizem Cd) 240 mg DAILY PO 10/29/17 09:00 Future Hold 10/30/17 09:02 (Aspirin Chew) 81 mg DAILY CHEW 10/29/17 11:45 Future hold 11/07/17 08:21 (Brethine Inj) 1 mg UNSCH PRN SQ 10/31/17 06:15 (Peridex 0.12% Liq) 15 ml BID@08,20 MT 10/31/17 08:00 11/07/17 08:21 (Apresoline Inj) 20 mg Q4H PRN IV PUSH 11/02/17 14:00 (Catapres) 0.1 mg Q6H PRN PO 11/02/17 23:45 11/04/17 02:35 Heparin Sodium/ Dextrose 250 ml @ 12 mls/hr TITRATE PRN IV 11/03/17 07:00 11/07/17 23:52 (Apresoline) 25 mg Q8HR PO 11/03/17 14:00 11/08/17 05:11 (Lasix Inj) 40 mg DAILY IV PUSH 11/03/17 13:00 11/07/17 08:21 (Trandate) 100 mg Q12HR PO 11/04/17 21:00 11/07/17 19:41 (Mucomyst 20% Neb) 2 ml Q6HR NEB NEB 11/05/17 10:00 11/08/17 08:15 Ampicillin Sodium/ Sulbactam Sodium 3 gm/Sodium Chloride 100 ml @ 200 mls/hr Q6H IV 11/05/17 20:00 11/08/17 01:24 (Pepcid Inj) 20 mg Q12HR IV PUSH 11/06/17 21:00 11/07/17 19:41 ([place] 7.5-325 Mg) 1 tab Q6H PRN PO 11/07/17 08:00 11/07/17 09:06 Last Impressions Chest X-Ray 11/07/17 0600 Signed Impressions: CONCLUSION: No appreciable change. Percutaneous Cholangiogram 11/01/17 Signed Impressions: CONCLUSION: 1. Uncomplicated percutaneous cholecystostomy as above. Abdomen/Pelvis CT 11/01/17 Signed Impressions: CONCLUSION: 1. Gallstones. There do appear to be areas of increased density within the com mon bile duct concerning for choledocholithiasis. 2. 4 mm nonobstructing left renal stone. 3. Sigmoid colon diverticula. 4. Bibasilar areas of consolidation or atelectasis being worse on the left wit h mild bilateral pleural effusions. Renal Ultrasound 10/31/17 Signed Impressions: CONCLUSION: 1. No hydronephrosis. 2. Increased cortical echogenicity consistent with medical renal disease. Head Magnetic Resonance Angiography 10/31/17 Signed Impressions: CONCLUSION: 1. Unremarkable MRA of the brain. Head CT 10/31/17 Signed Impressions: CONCLUSION: 1. Negative CT Head non contrast. 2. No evidence of acute infarct, hemorrhage, mass or edema. Brain MRI 10/31/17 Signed Impressions: CONCLUSION: 1. Senescent changes with minimal periventricular ischemic white matter demyel ination. 2. No acute abnormality. Specifically, no acute infarction, mass or hemorrhage . Gall Bladder Ultrasound 10/30/17 Signed Impressions: CONCLUSION: 1. Fatty infiltration of the liver. 2. Multiple stones in the gallbladder. No biliary tract obstruction. Extremity Arterial Study 10/28/17 Signed Impressions: CONCLUSION: 1. Abnormal ABIs, left greater than right. The left DAVID is significantly dimin ished at 0.14. Aorta w/Runoff CTA 10/28/17 Signed Impressions: Service Date/Time: Saturday, October 28, 2017 21:50 - CONCLUSION: 1. Acute occlusion of the left inflow with concern for short segment occlusion involving the distal right inflow. This raises concern for an embolic event. 2. Right lower extremity shows scattered disease throughout the common femoral artery, SFA and [id number] popliteal artery with three-vessel runoff to the foot. 3. Left lower extremity with reconstitution of the common femoral artery with diseased out flow and two vessel runoff to the foot as detailed above. 4. 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 5. Hepatic steatosis. 6. Cholelithiasis. Juanjose Mckeon Jr., MD Last Impressions Chest X-Ray 11/03/17 0600 Signed Impressions: CONCLUSION: Worsening parenchymal consolidation and small effusions at each lung base. Percutaneous Cholangiogram 11/01/17 Signed Impressions: CONCLUSION: 1. Uncomplicated percutaneous cholecystostomy as above. Abdomen/Pelvis CT 11/01/17 Signed Impressions: CONCLUSION: 1. Gallstones. There do appear to be areas of increased density within the com mon bile duct concerning for choledocholithiasis. 2. 4 mm nonobstructing left renal stone. 3. Sigmoid colon diverticula. 4. Bibasilar areas of consolidation or atelectasis being worse on the left wit h mild bilateral pleural effusions. Renal Ultrasound 10/31/17 Signed Impressions: CONCLUSION: 1. No hydronephrosis. 2. Increased cortical echogenicity consistent with medical renal disease. Head Magnetic Resonance Angiography 10/31/17 Signed Impressions: CONCLUSION: 1. Unremarkable MRA of the brain. Head CT 10/31/17 Signed Impressions: CONCLUSION: 1. Negative CT Head non contrast. 2. No evidence of acute infarct, hemorrhage, mass or edema. Brain MRI 10/31/17 Signed Impressions: CONCLUSION: 1. Senescent changes with minimal periventricular ischemic white matter demyel ination. 2. No acute abnormality. Specifically, no acute infarction, mass or hemorrhage . Gall Bladder Ultrasound 10/30/17 Signed Impressions: CONCLUSION: 1. Fatty infiltration of the liver. 2. Multiple stones in the gallbladder. No biliary tract obstruction. Extremity Arterial Study 10/28/17 Signed Impressions: CONCLUSION: 1. Abnormal ABIs, left greater than right. The left DAVID is significantly dimin ished at 0.14. Aorta w/Runoff CTA 10/28/17 Signed Impressions: Service Date/Time: Saturday, October 28, 2017 21:50 - CONCLUSION: 1. Acute occlusion of the left inflow with concern for short segment occlusion involving the distal right inflow. This raises concern for an embolic event. 2. Right lower extremity shows scattered disease throughout the common femoral artery, SFA and [id number] popliteal artery with three-vessel runoff to the foot. 3. Left lower extremity with reconstitution of the common femoral artery with diseased out flow and two vessel runoff to the foot as detailed above. 4. 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 5. Hepatic steatosis. 6. Cholelithiasis. Juanjose Mckeon Jr., MD Last Impressions Percutaneous Cholangiogram 11/01/17 Signed Impressions: CONCLUSION: 1. Uncomplicated percutaneous cholecystostomy as above. Abdomen/Pelvis CT 11/01/17 Signed Impressions: CONCLUSION: 1. Gallstones. There do appear to be areas of increased density within the com mon bile duct concerning for choledocholithiasis. 2. 4 mm nonobstructing left renal stone. 3. Sigmoid colon diverticula. 4. Bibasilar areas of consolidation or atelectasis being worse on the left wit h mild bilateral pleural effusions. Renal Ultrasound 10/31/17 Signed Impressions: CONCLUSION: 1. No hydronephrosis. 2. Increased cortical echogenicity consistent with medical renal disease. Head Magnetic Resonance Angiography 10/31/17 Signed Impressions: CONCLUSION: 1. Unremarkable MRA of the brain. Head CT 10/31/17 Signed Impressions: CONCLUSION: 1. Negative CT Head non contrast. 2. No evidence of acute infarct, hemorrhage, mass or edema. Chest X-Ray 10/31/17 Signed Impressions: CONCLUSION: Satisfactory position of endotracheal and nasogastric tubes. Increasing airspace disease and bilateral effusions. Brain MRI 10/31/17 Signed Impressions: CONCLUSION: 1. Senescent changes with minimal periventricular ischemic white matter demyel ination. 2. No acute abnormality. Specifically, no acute infarction, mass or hemorrhage . Gall Bladder Ultrasound 10/30/17 Signed Impressions: CONCLUSION: 1. Fatty infiltration of the liver. 2. Multiple stones in the gallbladder. No biliary tract obstruction. Extremity Arterial Study 10/28/17 Signed Impressions: CONCLUSION: 1. Abnormal ABIs, left greater than right. The left DAVID is significantly dimin ished at 0.14. Aorta w/Runoff CTA 10/28/17 Signed Impressions: Service Date/Time: Saturday, October 28, 2017 21:50 - CONCLUSION: 1. Acute occlusion of the left inflow with concern for short segment occlusion involving the distal right inflow. This raises concern for an embolic event. 2. Right lower extremity shows scattered disease throughout the common femoral artery, SFA and [id number] popliteal artery with three-vessel runoff to the foot. 3. Left lower extremity with reconstitution of the common femoral artery with diseased out flow and two vessel runoff to the foot as detailed above. 4. 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 5. Hepatic steatosis. 6. Cholelithiasis. Juanjose Mckeon Jr., MD Last 24 hours Impressions Chest X-Ray 10/28/172010 Signed Impressions: Service Date/Time: Saturday, October 28, 2017 20:20 - CONCLUSION: Left lower lobe infiltrate. Mild cardiomegaly. Juanjose Mckeon Jr., MD Objective Remarks GENERAL: This is a well-developed well-nourished middle-aged male, awake and alert in no apparent distress. SKIN: Warm and dry. HEAD: Normocephalic. ENT: No scleral icterus. No injection or drainage. Pupils are now equal at 3mm, reactive. Nasal cannula at 4 L nasal cannula. NECK: Supple, trachea midline. No JVD. CARDIOVASCULAR: Regular rate regular rhythm. RESPIRATORY: Manage breath sounds in bases bilaterally. Bilateral chest excursion GASTROINTESTINAL: Abdomen soft, mildly distended. no guarding. This ostomy tube draining bilious fluid MUSCULOSKELETAL: No cyanosis, or edema. Left foot cool to touch. Bilateral DP with Doppler NEURO EXAM: GCS 15. Moving extremities 4. Following commands. A/P Assessment and Plan ASSESSMENT/PLAN: NEURO: Acute metabolic encephalopathy -Neuro checks per ICU protocol -Tylenol 650 mg every 6 hours as needed for temp greater than 101.0 -10/31 CT of the head- negative RESP: Acute hypoxemic respiratory failure COPD exacerbation Left lower lobe pneumonia ARDS -Emergently intubated and placed on mechanical ventilation 10/31/2017 -PRVC/AC, DuoNeb scheduled and as needed, ventilator bundle, head of bed elevation to 30 -Steroids IV. Acetylcysteine as needed per pulmonary consultation: Dr. Johnson following - CT mild B/L pleural effusion -Extubated 11/07 -Continue Zosyn -11/07 chest [id number] edema, possible left pleural effusion -11/07 obtain ultrasound chest marking left CVS: Acute on chronic left limb ischemia Afib with RVR HTN -CTA showed severe aorto-iliac occlusive disease with left iliac thrombosis -Significant calcifications and peripheral vascular disease -2D echo: EF 50%, no significant valvular lesions. left sided pleural effusion -Heparin infusion per protocol -HIT screen negative. CHARLEEN -negative -11/08 Labetalol 100 mg twice daily (placed on hold) -Patient home med is Cardizem 240 ,patient now extubated will resume home medication. Continue hydralazine 25 mg q. 8hr. maintain MAP greater than 65 -Telemetry sinus rhythm GI Acute hepatic dysfunction Hyperbilirubinemia Transaminitis Acute Choledocholithiasis -Trend LFTs, gallbladder ultrasound showed multiple gallstones -Repeat CT abdomen/pelvis 10/31: c/w choledocholithiasis - GI consult. may need ERCP as well. 11/02-Dr. Camar[place], no invasive intervention at this time -Heart healthy diet -Cholecystostomy tube draining output 190cc in 24hr Acute kidney injury Acute metabolic acidosis -Nephrology following -Sodium bicarbonate infusion discontinued 11/03. -Hydration, Strict I's and O's -Continue Lasix 40 mg IV daily, additional dose of Lasix 40 mg IV now ID E COLI bacteremia/severe sepsis Enterococcus in the urine: possible colonization vs. UTI. Acute Choledocholithiasis Biliary fluid gram-negative rods -Source of bacteremia could be pneumonia or UTI or cholecystitis -Zosyn, increased to 3 g every 6 hours - unclear if enterococcus is clinical UTI or colonization. -ID following -Follow-up sputum and repeat blood cultures, urine culture -Gallbladder u/s, shows gallstones HEME: acute thrombocytopenia: improving. -Most likely etiology is sepsis with consumption - HIT negative. CHARLEEN negative - S/P doug tube 11/01 -Heparin infusion continued -Resume aspirin DVT GI prophylaxis -Vickey's and SCDs -Heparin infusion -Pepcid Level 2 follow-up. [facility] plan transfer to [facility] floor when bed becomes available. Physician Skylar Lang MD Nov 08, 2017 09:29
[2017-11-08] MEDS: ASPIRIN 81 MG CHEW TAB CHEW SCH (09:53)
[2017-11-08] MEDS: FUROSEMIDE 40 MG/4 ML VIAL IV PUSH SCH (09:53)
[2017-11-08] MEDS: FAMOTIDINE 20 MG/2 ML VIAL IV PUSH SCH ×2 (09:53→20:33)
[2017-11-08] MEDS: DILTIAZEM-CD 240 MG CAP ER PO SCH (09:54)
[2017-11-08] MEDS: SODIUM CHLORIDE 0.9% FLUSH 10 ML FLUSH IV FLUSH SCH ×2 (09:54→20:34)
[2017-11-08 11:40] LABS: HEMATOCRIT 29.8 % (39.0-51.0)
--- NOTE | 2017-11-08 13:47 | HHI.GIFU ---
Subjective Remarks Pt sitting up in bed Extubated yesterday He is alert and oriented Denies nausea, vomiting, abdominal pain Multiple BMs yesterday, Hemoccult ordered per CCM, per RN no BM over night or today (Annika Tenorio) Objective Vitals I&O Vital Signs Date Time Temp Pulse Resp B/P (MAP) Pulse Ox O2 Delivery O2 Flow Rate FiO2 11/08/17 12:00 76 11/08/17 10:00 74 11/08/17 08:18 93 Nasal Cannula 3.00 11/08/17 08:00 74 11/08/17 06:00 78 11/08/17 04:00 98.3 79 17 162/71 (101) 92 11/08/17 04:00 79 11/08/17 02:00 75 11/08/17 00:00 77 11/08/17 00:00 98.9 77 11 153/69 (97) 92 11/07/17 22:00 78 11/07/17 20:51 95 Nasal Cannula 3.00 11/07/17 20:00 98.7 78 14 207/82 (123) 94 11/07/17 20:00 78 11/07/17 18:00 84 11/07/17 17:00 80 11/07/17 17:00 80 11 147/67 (93) 92 11/07/17 16:01 81 11/07/17 16:01 81 24 159/91 (113) 93 11/07/17 16:00 79 15 93 11/07/17 16:00 79 11/07/17 15:27 96 Nasal Cannula 3.00 11/07/17 15:00 77 11/07/17 14:00 83 11/07/17 14:00 83 16 146/67 (93) 92 I/O 11/07/17 11/07/17 11/07/17 11/08/17 11/08/17 11/08/17 07:00 15:00 23:00 07:00 15:00 23:00 Intake Total 1181 ml 200 ml 362 ml 350 ml Output Total 740 ml 1300 ml 1000 ml Balance 441 ml 200 ml -938 ml -650 ml IV Total 563 ml 200 ml 100 ml 350 ml Tube Feeding 618 ml 142 ml Other 120 ml Output Urine Total 650 ml 1300 ml 1000 ml Drainage Total 90 ml # Bowel Movements 8 1 Laboratory Laboratory Tests Test 11/08/17 07:24 11/08/17 11:21 White Blood Count 14.5 Red Blood Count 3.06 Hemoglobin 9.5 10.0 Hematocrit 28.2 29.8 Mean Corpuscular Volume 92.1 Mean Corpuscular Hemoglobin 31.0 Mean Corpuscular Hemoglobin Concent 33.7 Red Cell Distribution Width 13.7 Platelet Count 195 Mean Platelet Volume 10.5 Activated Partial Thromboplast Time 61.3 Blood Urea Nitrogen 52 Creatinine 1.36 Random Glucose 86 Calcium Level 7.5 Phosphorus Level 3.6 Magnesium Level 2.4 Sodium Level 147 Potassium Level 3.5 Chloride Level 110 Carbon Dioxide Level 26.5 Anion Gap 11 Estimat Glomerular Filtration Rate 52 Date/Time Source Procedure Growth Status 10/30/17 20:38 Blood Peripheral Aerobic Blood Culture - Final NO GROWTH IN 5 DAYS Complete 10/30/17 20:38 Blood Peripheral Anaerobic Blood Culture - Final NO GROWTH IN 5 DAYS Complete 11/01/17 11:05 Fluid Other Gram Stain - Final Complete 11/01/17 11:05 Fluid Other Body Fluid Culture - Final Complete 11/04/17 05:08 Stool Stool Stool Occult Blood (NUBIA) - Final HEMOCCULT POSITIVE Complete 10/31/17 10:40 Sputum Endotracheal Gram Stain - Final Complete 10/31/17 10:40 Sputum Endotracheal Sputum Culture - Final HEAVY GROWTH NORMAL RESPIRATORY TERRELL Complete 10/29/17 00:00 Urine Catheterized Urine Urine Culture - Final Enterococcus Faecalis Complete Imaging Last Impressions Chest X-Ray 11/08/17 0600 Signed Impressions: CONCLUSION: Removal of previous endotracheal tube and nasogastric tube. Basilar airspace di sease and pleural effusions persist. Chest Ultrasound 11/07/17 0000 Signed Impressions: CONCLUSION: 1. Left-sided pleural effusion. Percutaneous Cholangiogram 11/01/17 0000 Signed Impressions: CONCLUSION: 1. Uncomplicated percutaneous cholecystostomy as above. Abdomen/Pelvis CT 11/01/17 0000 Signed Impressions: CONCLUSION: 1. Gallstones. There do appear to be areas of increased density within the com mon bile duct concerning for choledocholithiasis. 2. 4 mm nonobstructing left renal stone. 3. Sigmoid colon diverticula. 4. Bibasilar areas of consolidation or atelectasis being worse on the left wit h mild bilateral pleural effusions. Renal Ultrasound 5/24/18 0000 Signed Impressions: CONCLUSION: 1. No hydronephrosis. 2. Increased cortical echogenicity consistent with medical renal disease. Head Magnetic Resonance Angiography 10/31/17 Signed Impressions: CONCLUSION: 1. Unremarkable MRA of the brain. Head CT 10/31/17 Signed Impressions: CONCLUSION: 1. Negative CT Head non contrast. 2. No evidence of acute infarct, hemorrhage, mass or edema. Brain MRI 10/31/17 Signed Impressions: CONCLUSION: 1. Senescent changes with minimal periventricular ischemic white matter demyel ination. 2. No acute abnormality. Specifically, no acute infarction, mass or hemorrhage . Gall Bladder Ultrasound 10/30/17 Signed Impressions: CONCLUSION: 1. Fatty infiltration of the liver. 2. Multiple stones in the gallbladder. No biliary tract obstruction. Extremity Arterial Study 10/28/17 Signed Impressions: CONCLUSION: 1. Abnormal ABIs, left greater than right. The left DAVID is significantly dimin ished at 0.14. Aorta w/Runoff CTA 10/28/17 Signed Impressions: Service Date/Time: Saturday, October 28, 2017 21:50 - CONCLUSION: 1. Acute occlusion of the left inflow with concern for short segment occlusion involving the distal right inflow. This raises concern for an embolic event. 2. Right lower extremity shows scattered disease throughout the common femoral artery, SFA and [id number] popliteal artery with three-vessel runoff to the foot. 3. Left lower extremity with reconstitution of the common femoral artery with diseased out flow and two vessel runoff to the foot as detailed above. 4. 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 5. Hepatic steatosis. 6. Cholelithiasis. Juanjose Mckeon Jr., MD Physical Exam HEENT: Normocephalic; atraumatic (+) icterus CHEST - Even/unlabored- on NC CARDIAC: RRR ABDOMEN: Distended, soft, bowel sounds active, nontender. Biliary drain with good drainage. SKIN: Normal; no rash; no jaundice. DIRECTOR OF PROFESSIONAL SERVICES: Alert and oriented (Annika Tenorio) Assessment and Plan Plan Assessment: - Choledocholithiasis with elevated LFTs, trending down CT abdomen WO IV contrast (11/01) --> Gallstones, appears to be areas of increased density within the common bile duct concerning for choledocholithiasis. S/P IR for percutaneous cholecystostomy drain on 11/01 - Culture with heavy growth of gram positive and gram negative enteric terrell, no further work up Pt on Unasyn - Elevated LFTs- likely secondary to obstruction from above but liver work up pending Iron-145 TIBC-214 %sat-67.7 Ferritin-248 AFP-6.9 Hepatitis panel negative [place], AMA, ASMA negative. AAT-215 Ceruloplasmin-24 - Anemia, normocytic- with Hemoccult positive stools- no obvious GIB - Cold left leg- Heparin gtt (11/08) Pt now extubated, alert and oriented, tolerating PO. Denies nausea, vomiting, abdominal pain. Discussed plan for ERCP this week. Will need clearance to DC Heparin gtt past midnight for procedure. Pt had multiple BMs yesterday, Hemoccult stool ordered per CCM, has had no BM over night or today per RN. H/H stable Plan ERCP when stable- this week Monitor output from cholecystostomy drain Monitor LFTs Antibiotics per ID Monitor H/H Notify GI if any obvious GIB Of note, on Heparin gtt Further recommendations based on clinical course Pt has been seen and examined by myself and Dr. Coats and this note is written on his behalf (Annika Tenorio) Physician Comments As above, still unstable for ERCP, will follow up with you. (James Coats MD) Annika Tenorio Nov 08, 2017 13:47 James Coats MD Nov 08, 2017 14:20
[2017-11-08 16:08] LABS: HEMATOCRIT 28.1 % (39.0-51.0); HEMOGLOBIN 9.4 GM/DL (13.0-17.0)
--- NOTE | 2017-11-08 18:28 | HHI.PR ---
Subjective Remarks 67 YOWM with COPD,Sepsis, ischemia of leg Developed RF, intubated Extubated On NC mild sob cough, occ sp No Fever Started po, appetite poor Objective Vital Signs Vital Signs Date Time Temp Pulse Resp B/P (MAP) Pulse Ox O2 Delivery O2 Flow Rate FiO2 11/08/17 18:00 69 11/08/17 16:00 98.6 71 18 148/66 (93) 100 11/08/17 16:00 75 11/08/17 14:00 85 11/08/17 12:00 76 11/08/17 12:00 98.2 81 16 145/65 (91) 92 11/08/17 10:00 74 11/08/17 08:18 93 Nasal Cannula 3.00 11/08/17 08:00 74 11/08/17 08:00 98.6 77 16 175/79 (111) 91 11/08/17 06:00 78 11/08/17 04:00 98.3 79 17 162/71 (101) 92 11/08/17 04:00 79 11/08/17 02:00 75 11/08/17 00:00 77 11/08/17 00:00 98.9 77 11 153/69 (97) 92 11/07/17 22:00 78 11/07/17 20:51 95 Nasal Cannula 3.00 11/07/17 20:00 98.7 78 14 207/82 (123) 94 11/07/17 20:00 78 I/O 11/07/17 11/07/17 11/07/17 11/08/17 11/08/17 11/08/17 07:00 15:00 23:00 07:00 15:00 23:00 Intake Total 1181 ml 200 ml 362 ml 350 ml 100 ml 340 ml Output Total 740 ml 1300 ml 1000 ml 2060 ml Balance 441 ml 200 ml -938 ml -650 ml 100 ml -1720 ml Intake Oral 240 ml IV Total 563 ml 200 ml 100 ml 350 ml 100 ml 100 ml Tube Feeding 618 ml 142 ml Other 120 ml Output Urine Total 650 ml 1300 ml 1000 ml 1800 ml Drainage Total 90 ml 260 ml # Bowel Movements 8 1 0 Result Diagram: 11/08/17 1541 11/08/17 0724 Objective Remarks GENERAL: WBWN WM, mild sob SKIN: Warm and dry. HEAD: Normocephalic. EYES: No scleral icterus. No injection or drainage. NECK: Supple, trachea midline. No JVD or lymphadenopathy. CARDIOVASCULAR: Regular rate and rhythm without murmurs, gallops, or rubs. RESPIRATORY: Breath sounds equal bilaterally. No accessory muscle use. GASTROINTESTINAL: Abdomen soft, non-tender, nondistended. MUSCULOSKELETAL: No cyanosis, or edema. Cold left leg BACK: Nontender without obvious deformity. No CVA tenderness. A/P Assessment and Plan IMPRESSION: 1. Sepsis. 2. Chronic obstructive pulmonary disease, mild exacerbation. 3. Left basilar infiltrate. 4. Urinary tract infection 5. Encephalopathy. 6. Cold left leg. 7. Thrombocytopenia. 8. VDRF--extubated 11/07 PLAN: Cont Abx per ID Heparin drip Monitor Plt count Monitor renal functions Supplement 02 Dennis Johnson MD Nov 08, 2017 18:28
--- NOTE | 2017-11-08 18:40 | HHI.IDPN ---
Subjective Subjective Remarks ID [email or web address] for Dr Soler Ipt is now extubated still puiuts out up to 200 cc from biliary drain Afebrile. WBC mildly increased. On sterroids Antibiotics unasyn Allergies: Coded Allergies: No Known Allergies (Unverified , 10/28/17) Objective . Vital Signs Date Time Temp Pulse Resp B/P (MAP) Pulse Ox O2 Delivery O2 Flow Rate FiO2 11/08/17 18:00 69 11/08/17 16:00 98.6 71 18 148/66 (93) 100 11/08/17 16:00 75 11/08/17 14:00 85 11/08/17 12:00 76 11/08/17 12:00 98.2 81 16 145/65 (91) 92 11/08/17 10:00 74 11/08/17 08:18 93 Nasal Cannula 3.00 11/08/17 08:00 74 11/08/17 08:00 98.6 77 16 175/79 (111) 91 11/08/17 06:00 78 11/08/17 04:00 98.3 79 17 162/71 (101) 92 11/08/17 04:00 79 11/08/17 02:00 75 11/08/17 00:00 77 11/08/17 00:00 98.9 77 11 153/69 (97) 92 11/07/17 22:00 78 11/07/17 20:51 95 Nasal Cannula 3.00 11/07/17 20:00 98.7 78 14 207/82 (123) 94 11/07/17 20:00 78 11/08/17 11/08/17 11/09/17 15:00 23:00 07:00 Intake Total 100 ml 340 ml Output Total 2060 ml Balance 100 ml -1720 ml Intake Oral 240 ml IV Total 100 ml 100 ml Output Urine Total 1800 ml Drainage Total 260 ml # Bowel Movements 0 . Laboratory Tests Test 11/07/17 06:20 11/08/17 07:24 11/08/17 11:21 11/08/17 15:41 White Blood Count 13.0 TH/MM3 14.5 TH/MM3 Red Blood Count 3.32 MIL/MM3 3.06 MIL/MM3 Hemoglobin 10.3 GM/DL 9.5 GM/DL 10.0 GM/DL 9.4 GM/DL Hematocrit 30.7 % 28.2 % 29.8 % 28.1 % Mean Corpuscular Volume 92.4 FL 92.1 FL Mean Corpuscular Hemoglobin 30.9 PG 31.0 PG Mean Corpuscular Hemoglobin Concent 33.4 % 33.7 % Red Cell Distribution Width 13.6 % 13.7 % Platelet Count 179 TH/MM3 195 TH/MM3 Mean Platelet Volume 10.8 FL 10.5 FL Neutrophils (%) (Auto) 92.7 % Lymphocytes (%) (Auto) 3.7 % Monocytes (%) (Auto) 3.3 % Eosinophils (%) (Auto) 0.0 % Basophils (%) (Auto) 0.3 % Neutrophils # (Auto) 12.1 TH/MM3 Lymphocytes # (Auto) 0.5 TH/MM3 Monocytes # (Auto) 0.4 TH/MM3 Eosinophils # (Auto) 0.0 TH/MM3 Basophils # (Auto) 0.0 TH/MM3 CBC Comment DIFF FINAL Differential Comment Laboratory Tests Test 11/07/17 06:20 11/08/17 07:24 Blood Urea Nitrogen 53 MG/DL 52 MG/DL Creatinine 1.34 MG/DL 1.36 MG/DL Random Glucose 176 MG/DL 86 MG/DL Total Protein 4.7 GM/DL Albumin 1.8 GM/DL Calcium Level 7.3 MG/DL 7.5 MG/DL Alkaline Phosphatase 57 U/L Aspartate Amino Transf (AST/SGOT) 71 U/L Alanine Aminotransferase (ALT/SGPT) 88 U/L Total Bilirubin 4.1 MG/DL Sodium Level 146 MEQ/L 147 MEQ/L Potassium Level 3.7 MEQ/L 3.5 MEQ/L Chloride Level 107 MEQ/L 110 MEQ/L Carbon Dioxide Level 27.0 MEQ/L 26.5 MEQ/L Anion Gap 12 MEQ/L 11 MEQ/L Estimat Glomerular Filtration Rate 53 ML/MIN 52 ML/MIN Protein Corrected Calcium 8.7 MG/DL Phosphorus Level 3.6 MG/DL Magnesium Level 2.4 MG/DL Imaging Last Impressions Chest X-Ray 11/08/17 0600 Signed Impressions: CONCLUSION: Removal of previous endotracheal tube and nasogastric tube. Basilar airspace di sease and pleural effusions persist. Chest Ultrasound 11/07/17 0000 Signed Impressions: CONCLUSION: 1. Left-sided pleural effusion. Percutaneous Cholangiogram 5/25/18 0000 Signed Impressions: CONCLUSION: 1. Uncomplicated percutaneous cholecystostomy as above. Abdomen/Pelvis CT 11/01/17 Signed Impressions: CONCLUSION: 1. Gallstones. There do appear to be areas of increased density within the com mon bile duct concerning for choledocholithiasis. 2. 4 mm nonobstructing left renal stone. 3. Sigmoid colon diverticula. 4. Bibasilar areas of consolidation or atelectasis being worse on the left wit h mild bilateral pleural effusions. Renal Ultrasound 10/31/17 Signed Impressions: CONCLUSION: 1. No hydronephrosis. 2. Increased cortical echogenicity consistent with medical renal disease. Head Magnetic Resonance Angiography 10/31/17 Signed Impressions: CONCLUSION: 1. Unremarkable MRA of the brain. Head CT 10/31/17 Signed Impressions: CONCLUSION: 1. Negative CT Head non contrast. 2. No evidence of acute infarct, hemorrhage, mass or edema. Brain MRI 10/31/17 Signed Impressions: CONCLUSION: 1. Senescent changes with minimal periventricular ischemic white matter demyel ination. 2. No acute abnormality. Specifically, no acute infarction, mass or hemorrhage . Gall Bladder Ultrasound 10/30/17 Signed Impressions: CONCLUSION: 1. Fatty infiltration of the liver. 2. Multiple stones in the gallbladder. No biliary tract obstruction. Extremity Arterial Study 10/28/17 Signed Impressions: CONCLUSION: 1. Abnormal ABIs, left greater than right. The left DAVID is significantly dimin ished at 0.14. Aorta w/Runoff CTA 10/28/17 Signed Impressions: Service Date/Time: Saturday, October 28, 2017 21:50 - CONCLUSION: 1. Acute occlusion of the left inflow with concern for short segment occlusion involving the distal right inflow. This raises concern for an embolic event. 2. Right lower extremity shows scattered disease throughout the common femoral artery, SFA and [id number] popliteal artery with three-vessel runoff to the foot. 3. Left lower extremity with reconstitution of the common femoral artery with diseased out flow and two vessel runoff to the foot as detailed above. 4. 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 5. Hepatic steatosis. 6. Cholelithiasis. Juanjose Mckeon Jr., MD Physical Exam GENERAL: On the ventilator. Unresponsive. HEENT: Head atraumatic. No icterus. NECK: Supple without adenopathy. No swelling. LUNGS: Slight rhonchi. Good air movement. HEART: Bradycardic, No audible murmurs. ABDOMEN: Obese, distended, cholecystostomy tube in place with biliary drainage. with dark brown bile EXTREMITIES: No clubbing or cyanosis or edema. Left foot is currently warm. Purple discoloration of 5th toe SKIN: No diffuse rash. NEUROLOGIC: fully awake and alert. PSYCHIATRIC: Calm. Assessment & Plan Remarks IMPRESSION: 1. Severe sepsis due to E. coli very likely secondary to acute cholecystitis. Cholangitis. 2. Bacteriuria with less than 10,000 Enterococcus faecalis. 3. Pneumonia. Bilateral airspace disease on chest x-ray. 4. Leukocytosis secondary to infection. WBC worse today - sterroids mightr cpntribute 5. Acute kidney disease likely resulting from sepsis. Renal function slightly worse today - 6. Acute respiratory failure. ? CHF; resolved RECOMMENDATIONS: 1. Continue ampicillin/sulbactam 3 g IV every 6 hours. -bcomplete 14 days 2. Monitor temperature 3. The white blood cell count. 4. Monitor the clinical status. Bela Crain RN, MD Nov 08, 2017 18:39
[2017-11-08 21:40] LABS: HEMATOCRIT 27.2 % (39.0-51.0); HEMOGLOBIN 9.1 GM/DL (13.0-17.0)
[2017-11-09] VITALS (15 sets, daily range): BP systolic 127–162; BP diastolic 62–70; PULSE 61–79; RESP 15–21; TEMP 97.6–98.4; O2SAT 90–95
[2017-11-09] MEDS: HEPARIN-D5W 25,000 U/250 ML 250 ML IV PRN (00:13)
[2017-11-09] MEDS: AMPICILLIN/SULBAC 3 GM/NS 100 ML IV SCH ×8 (02:51→21:31)
[2017-11-09 03:38] LABS: AUTOMATED NEUTROPHIL # 10.2 TH/MM3 (1.8-7.7); BASOPHIL % 0.1 % (0.0-2.0); HEMATOCRIT 26.7 % (39.0-51.0); HEMOGLOBIN 9.1 GM/DL (13.0-17.0); LYMPH % 4.3 % (9.0-44.0); LYMPHOCYTE # 0.5 TH/MM3 (1.0-4.8); MEAN CORPUSCULAR HEMOGLOBIN 31.6 PG (27.0-34.0); MEAN PLATELET VOLUME 10.7 FL (7.0-11.0); MONO % 3.9 % (0.0-8.0); MONOCYTE # 0.4 TH/MM3 (0-0.9); NEUT % 91.7 % (16.0-70.0); PLATELET COUNT 196 TH/MM3 (150-450); RED BLOOD COUNT 2.87 MIL/MM3 (4.50-5.90); RED CELL DISTRIBUTION WIDTH 13.9 % (11.6-17.2); WHITE BLOOD COUNT 11.2 TH/MM3 (4.0-11.0)
[2017-11-09] MEDS: RESP: ALBUTEROL 2.5 MG/IPRATROPIUM 0.5 MG NEB (PRN) INH (03:58)
[2017-11-09] MEDS: RESP: ACETYLCYSTEINE 20% 30 ML NEB NEB SCH ×2 (03:58→09:58)
[2017-11-09 03:59] LABS: ALBUMIN 1.9 GM/DL (3.4-5.0); CALCIUM 7.2 MG/DL (8.5-10.1); CALCIUM-PROTEIN CORRECTED 8.3 MG/DL (8.5-10.1); CREATININE 1.36 MG/DL (0.60-1.30); MAGNESIUM 2.5 MG/DL (1.5-2.5); PHOSPHORUS 3.9 MG/DL (2.5-4.9); TOTAL BILIRUBIN ADULT 4.6 MG/DL (0.2-1.0); TOTAL PROTEIN 5.1 GM/DL (6.4-8.2)
[2017-11-09] MEDS: CHLORHEXIDINE GLUCONATE 2 % 1 PACK (2 CLOTHS) TOP SCH (04:00)
--- NOTE | 2017-11-09 04:28 | RADRPT ---
EXAM DATE: 11/09/2017 4:24 AM EDT AGE/SEX: 67 years / Male INDICATIONS: Shortness of breath, possible pulmonary disease. CLINICAL DATA: This is the patient's subsequent encounter. Patient reports that signs and symptoms h ave been present for 1 week and indicates a pain score of Nonresponsive. MEDICAL/SURGICAL HISTORY: Chronic obstructive pulmonary disease. Hiatal hernia. . Hernia repai r. COMPARISON: [facility] [place], CHEST SINGLE AP, 11/08/2017. . FINDINGS: The heart size is within normal limits. There is increased density at the bases bilaterally being wor se on the left. There is silhouetting of both hemidiaphragms. Clips are seen over the left lower ches t. CONCLUSION: Bibasilar areas of consolidation and suspected effusions being worse on the left. Electronically signed by: Phi Tineo MD 11/09/2017 4:26 AM EDT
[2017-11-09] MEDS: hydrALAZINE HCL 25 MG TAB PO SCH ×3 (04:37→21:30)
[2017-11-09] MEDS: methylPREDNISolone SOD SUCC 40 MG/1 ML VIAL IV PUSH SCH ×3 (04:37→16:57)
[2017-11-09] MEDS: ASPIRIN 81 MG CHEW TAB CHEW SCH (07:59)
[2017-11-09] MEDS: DILTIAZEM-CD 240 MG CAP ER PO SCH (07:59)
[2017-11-09] MEDS: FAMOTIDINE 20 MG/2 ML VIAL IV PUSH SCH ×2 (07:59→21:31)
[2017-11-09] MEDS: FUROSEMIDE 40 MG/4 ML VIAL IV PUSH SCH (07:59)
[2017-11-09] MEDS: CHLORHEXIDINE 0.12% (ORAL KIT) 15 ML CUP MT SCH ×2 (08:00→20:00)
[2017-11-09] MEDS: SODIUM CHLORIDE 0.9% FLUSH 10 ML FLUSH IV FLUSH SCH ×2 (08:00→21:31)
[2017-11-09 09:35] LABS: HEMATOCRIT 28.1 % (39.0-51.0); HEMOGLOBIN 9.4 GM/DL (13.0-17.0)
--- NOTE | 2017-11-09 15:50 | HHI.PR ---
Subjective Remarks 67-year-old female who is lying in bed and having moderately labored breathing with saturations at 90% while on 6 L of oxygen nasal cannula. He states that he is feeling better than yesterday and that he is improving each day. He denies any pain, denies fevers. Objective Vitals Vital Signs Date Time Temp Pulse Resp B/P (MAP) Pulse Ox O2 Delivery O2 Flow Rate FiO2 11/09/17 14:00 63 11/09/17 12:00 61 11/09/17 12:00 98.1 61 15 128/63 (84) 92 11/09/17 10:00 75 11/09/17 09:58 93 Nasal Cannula 6.00 11/09/17 08:00 97.8 74 16 145/65 (91) 91 11/09/17 08:00 74 11/09/17 06:00 71 11/09/17 04:03 94 Nasal Cannula 4.00 11/09/17 04:00 98.0 71 21 162/70 (100) 94 11/09/17 04:00 71 11/09/17 02:00 79 11/09/17 00:00 97.6 74 19 145/65 (91) 90 11/09/17 00:00 74 11/08/17 22:00 74 11/08/17 20:48 92 Nasal Cannula 4.00 11/08/17 20:00 73 11/08/17 20:00 98.0 73 17 169/75 (106) 93 11/08/17 18:00 69 11/08/17 16:00 98.6 71 18 148/66 (93) 100 11/08/17 16:00 75 I/O 11/08/17 11/08/17 11/08/17 11/09/17 11/09/17 11/09/17 07:00 15:00 23:00 07:00 15:00 23:00 Intake Total 350 ml 100 ml 440 ml 500 ml Output Total 1000 ml 2060 ml 1115 ml Balance -650 ml 100 ml -1620 ml -615 ml Intake Oral 240 ml 400 ml IV Total 350 ml 100 ml 200 ml 100 ml Output Urine Total 1000 ml 1800 ml 1000 ml Drainage Total 260 ml 115 ml # Bowel Movements 1 0 0 Result Diagram: 11/09/17 0914 11/09/17 0303 Objective Remarks GENERAL: Weak appearing man, slight labored breathing, pale SKIN: Warm and dry. HEAD: Normocephalic. EYES: No scleral icterus. No injection or drainage. NECK: Supple, trachea midline. No JVD or lymphadenopathy. CARDIOVASCULAR: Irregularly irregular with borderline tachycardia, without murmurs, gallops, or rubs. RESPIRATORY: Breath sounds equal bilaterally, diminished in bases. No accessory muscle use. GASTROINTESTINAL: Abdomen soft, non-tender, nondistended. EXTREMITIES: No cyanosis, or edema. Warm, pulses present bilaterally NEUROLOGICAL: Awake, alert, and oriented x 3. Non-focal. A/P Problem List: (1) Pneumonia ICD Code: J18.9 - Pneumonia, unspecified organism Status: Acute (2) Sepsis ICD Code: A41.9 - Sepsis, unspecified organism Status: Acute (3) Ischemia of left lower extremity ICD Code: I99.8 - Other disorder of circulatory system Status: Acute Assessment and Plan LLL Pneumonia with sepsis, respiratory failure Patient was intubated on 10/31, he was extubated on 11/07 He is still somewhat labored with his breathing, slight tachypnea, needing 6 L of oxygen via nasal cannula Watching patient in ICU, may transfer out when respiratory parameters improved Continue with IV Zosyn Continue COPD coverage COPD exacerbation Complicated picture including pneumonia, sepsis, respiratory failure, A. fib, fluid overload Continuing steroids IV, continue duo nebs as needed Oxygenation remaining in low 90s despite 6 L of oxygen via nasal cannula Atrial fibrillation with RVR Patient has periodic irregularity but is overall rate controlled at the present 2D echo showed ejection fraction of 50% Previous x-ray shows left-sided pleural effusion Continue Cardizem Labetalol previously held Follow on telemetry Hypocalcemia Borderline calcium depletion on protein corrected calcium level We will repeat level in the a.m., treat if trend is downward Acute on chronic left limb ischemia Patient reports that he had a stent placed which reestablish his blood flow The leg is currently warm, no evidence of ischemia Acute choledocholithiasis Multiple gallstones present on ultrasound GI recommended no intervention at this time Cholecystostomy tube in place Acute thrombocytopenia Most likely from sepsis with consumption HIT negative, CHARLEEN negative Continue heparin, continue aspirin DVT prophylaxis Heparin Discharge planning Patient has not yet breathing comfortably, will keep him on the ICU another day and reevaluate Problem Qualifiers (1) Pneumonia: Qualified Codes: J18.1 - Lobar pneumonia, unspecified organism (2) Sepsis: Qualified Codes: A41.9 - Sepsis, unspecified organism Ricky Morgan MD Nov 09, 2017 15:50
[2017-11-09 18:08] LABS: HEMATOCRIT 24.6 % (39.0-51.0); HEMOGLOBIN 8.3 GM/DL (13.0-17.0)
--- NOTE | 2017-11-09 18:12 | HHI.PR ---
Subjective Remarks 67 YOWM with COPD,Sepsis, ischemia of leg Developed RF, intubated Extubated On NC mild sob cough, occ sp No Fever Weak, poor appetite Objective Vital Signs Vital Signs Date Time Temp Pulse Resp B/P (MAP) Pulse Ox O2 Delivery O2 Flow Rate FiO2 11/09/17 16:00 98.3 63 16 137/63 (87) 94 11/09/17 16:00 63 11/09/17 14:00 63 11/09/17 12:00 61 11/09/17 12:00 98.1 61 15 128/63 (84) 92 11/09/17 10:00 75 11/09/17 09:58 93 Nasal Cannula 6.00 11/09/17 08:00 97.8 74 16 145/65 (91) 91 11/09/17 08:00 74 11/09/17 06:00 71 11/09/17 04:03 94 Nasal Cannula 4.00 11/09/17 04:00 98.0 71 21 162/70 (100) 94 11/09/17 04:00 71 11/09/17 02:00 79 11/09/17 00:00 97.6 74 19 145/65 (91) 90 11/09/17 00:00 74 11/08/17 22:00 74 11/08/17 20:48 92 Nasal Cannula 4.00 11/08/17 20:00 73 11/08/17 20:00 98.0 73 17 169/75 (106) 93 I/O 11/08/17 11/08/17 11/08/17 11/09/17 11/09/17 11/09/17 07:00 15:00 23:00 07:00 15:00 23:00 Intake Total 350 ml 100 ml 440 ml 500 ml Output Total 1000 ml 2060 ml 1115 ml Balance -650 ml 100 ml -1620 ml -615 ml Intake Oral 240 ml 400 ml IV Total 350 ml 100 ml 200 ml 100 ml Output Urine Total 1000 ml 1800 ml 1000 ml Drainage Total 260 ml 115 ml # Bowel Movements 1 0 0 Result Diagram: 11/09/17 1908 11/09/17 0179 Objective Remarks GENERAL: WBWN WM, mild sob SKIN: Warm and dry. HEAD: Normocephalic. EYES: No scleral icterus. No injection or drainage. NECK: Supple, trachea midline. No JVD or lymphadenopathy. CARDIOVASCULAR: Regular rate and rhythm without murmurs, gallops, or rubs. RESPIRATORY: Breath sounds equal bilaterally. No accessory muscle use. GASTROINTESTINAL: Abdomen soft, non-tender, nondistended. MUSCULOSKELETAL: No cyanosis, or edema. Cold left leg BACK: Nontender without obvious deformity. No CVA tenderness. A/P Assessment and Plan IMPRESSION: 1. Sepsis. 2. Chronic obstructive pulmonary disease, mild exacerbation. 3. Left basilar infiltrate. 4. Urinary tract infection 5. Encephalopathy. 6. Cold left leg. 7. Thrombocytopenia. 8. VDRF--extubated 11/07 PLAN: Cont Abx per ID Heparin drip Monitor Plt count Monitor renal functions Supplement 02 Encourage PO Dennis Johnson MD Nov 09, 2017 18:12
[2017-11-09 21:17] LABS: HEMATOCRIT 39.7 % (39.0-51.0); HEMOGLOBIN 12.5 GM/DL (13.0-17.0)
[2017-11-09] MEDS: ACETAMINOPHEN/HYDROcodone 325 MG/7.5 MG TAB PO PRN (21:39)
[2017-11-10] VITALS (13 sets, daily range): BP systolic 109–136; BP diastolic 58–77; PULSE 60–81; RESP 17–26; TEMP 97.7–98.6; O2SAT 92–98
[2017-11-10] MEDS: HEPARIN-D5W 25,000 U/250 ML 250 ML IV PRN (00:51)
[2017-11-10] MEDS: methylPREDNISolone SOD SUCC 40 MG/1 ML VIAL IV PUSH SCH ×4 (00:58→17:02)
[2017-11-10] MEDS: AMPICILLIN/SULBAC 3 GM/NS 100 ML IV SCH ×8 (02:45→20:22)
[2017-11-10 03:47] LABS: HEMATOCRIT 22.1 % (39.0-51.0); HEMOGLOBIN 7.5 GM/DL (13.0-17.0)
[2017-11-10] MEDS: CHLORHEXIDINE GLUCONATE 2 % 1 PACK (2 CLOTHS) TOP SCH (04:00)
[2017-11-10 04:18] LABS: BICARBONATE 25.1 MEQ/L (21.0-32.0); CALCIUM 7.6 MG/DL (8.5-10.1); CREATININE 1.47 MG/DL (0.60-1.30)
[2017-11-10] MEDS ORDERED: POTASSIUM CHLORIDE 20 MEQ CONTROLLED RELEASE TAB PO ONE (05:00)
[2017-11-10] MEDS: hydrALAZINE HCL 25 MG TAB PO SCH ×3 (05:12→21:02)
[2017-11-10] MEDS: CHLORHEXIDINE 0.12% (ORAL KIT) 15 ML CUP MT SCH ×2 (08:00→20:00)
[2017-11-10] MEDS: DILTIAZEM-CD 240 MG CAP ER PO SCH (08:08)
[2017-11-10] MEDS: ASPIRIN 81 MG CHEW TAB CHEW SCH (08:08)
[2017-11-10] MEDS: FUROSEMIDE 40 MG/4 ML VIAL IV PUSH SCH (08:09)
[2017-11-10] MEDS: FAMOTIDINE 20 MG/2 ML VIAL IV PUSH SCH ×2 (08:09→20:22)
[2017-11-10] MEDS: SODIUM CHLORIDE 0.9% FLUSH 10 ML FLUSH IV FLUSH SCH ×2 (08:09→20:22)
--- NOTE | 2017-11-10 10:46 | HHI.PR ---
Subjective Remarks 67-year-old male presents to the emergency department via EMS for evaluation of shortness of breath and pain and numbness to the left leg. Patient believes that he is shortness of breath is related to the pain in his leg. He cannot feel his leg from his groin down. He denies any history of the same. He does report history of COPD. He denies any known fevers or chills. He denies chest pain. Patient received 1 L normal saline bolus via EMS. Patient denies any history of bleeding or blood clots. No recent surgery or travel. No hemoptysis. No history of DVT/PE. He denies leg edema. Patient states the pain is 10/10 to the left leg. No exacerbating or alleviating factors. Moderate severity. 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 The right inflow is heavily diseased as well. The patient was evaluated by vascular surgeon cardiopulmonary technologist chief and was immediately started on heparin drip. SUBJ 10/29: Remains critically ill, encephalopathy. 4 out of 4 bottles positive for GNR. I will change Rocephin to Zosyn renally dosed to cover for Pseudomonas also. Continue azithromycin. Creatinine still elevated but slightly improved. WBC count slightly increased 17.2 now with 24% bands. Source of GNR sepsis could be either UTI or pneumonia. Will consult ID as well. Remains on IV heparin for acute left limb ischemia 10/30: platelets falling >50% again today. Cr still rising, but could be ATN/ contrast nephropathy. blood cultures growing e. coli by PCR, full speciation to follow. urine culture pending. discussed case with Dr. Lopez, will stop heparin , start argatroban and send HIT/CHARLEEN. denies complaints for me, but does have objective tenderness on palpation, RUQ. 10/31: Emergently intubated today a.m. by Dr. Puckett for worsening mental status, encephalopathy and worsening respiratory failure. Prior to intubation Dr. Puckett ' exam revealed right upper quadrant tenderness. Ultrasound of the gallbladder yesterday showed gallstones. Overnight Argatroban was supratherapeutic and was held, platelet count also dropped to 30,000, HIT screen is pending. Postintubation bilateral pupils are reactive but unequal. Will repeat CT of the head, CT abdomen pelvis. BUN 49/Creat 2.7, leukocytosis persisting 11/01: no improvements. ct abd/pelvis with evidence of possible choledocholithiasis. perc doug tube planned for this AM. on esmolol infusion for afib RVR. fio2 increased to 70%. 11/02: Sodium bicarbonate infusion continued per nephrology in the setting of rhabdomyolysis serial creatinine kinase pending. Cholecystostomy drain placement 100 cc overnight. Continued thrombocytopenia, CBC, serotonin release assay pending. Plan for reinitiation of heparin awaiting GI consultation for possible invasive procedures prior to restarting heparin. Patient sinus rhythm with occasional PAC's. 11/03: No acute events overnight. Sodium bicarbonate infusion discontinued this a.m. had any improved this a.m.. Chest x-ray showed worsening consolidation, FiO2 requirements were increased to 65% during the night. CPAP trials on hold currently. Biliary drainage from cholecystostomy tube revealing gram-negative rods. The patient continues on antibiotics. Bilateral dorsalis pedis pulses monophasic signals by Doppler. Heparin infusion reinitiated. 11/04: Sodium bicarbonate infusion discontinued at 7 AM yesterday. Chest x-ray worsening consolidation versus pleural effusions. FiO2 slightly decreased to 60 %, ABG improving. Pending quantification via ultrasound of pleural fluid in am. Lasix 40mg x1 additional dose provided today . PPN discontinued discussed with Dr. Colon tube feeds initiated at [facility]. Dietary consult ordered. 11/05: Afebrile. Patient tolerating tube feeds advanced to goal rate of 55 cc/ hr. chest x-ray with slight improvement FiO2 decreased to 55% ABG pending. Initiation of CPAP trial to be attempted today. 11/06: Late entry note. Patient seen at 628am. Patient was started on CPAP and continues on CPAP greater than 10 hours. Patient following commands, currently on Precedex infusion. 11/07: Patient remained on CPAP trials for approximately 12 hours yesterday and discontinued because of agitation. CPAP trials reinitiated this a.m. Patient complaint of sore throat Lortab ordered. Patient continues on Precedex for ventilator weaning process. Chest x-ray still shows pulmonary edema, additional dose Lasix 401 dose given this a.m.. When infusion continued, monophasic Doppler signals bilateral dorsalis pedal pulses noted. 11/08: Afebrile . Patient successfully extubated yesterday. Remains on O2 at 4 L nasal cannula O2 saturation 94-95%. Patient continues on heparin infusion, she was noted to have 9 BMs last evening plan for serial H&H's concern for possible stool with occult blood. Repeat stool for occult blood. Plan for possible bedside thoracentesis ,if respiratory requirements increase, currently on O2 4 L via nasal cannula in no apparent distress. 6-2 transferred to our service from ICU TEAM 67-year-old female who is lying in bed and having moderately labored breathing with saturations at 90% while on 6 L of oxygen nasal cannula. He states that he is feeling better than yesterday and that he is improving each day. He denies any pain, denies fevers. 6-3 STILL REMAINS ON 6L BY NC APPEARS UNCOMFORTABLE STILL ON OXYGEN A.m. labs PT and OT to eval and treat Keep in ICU due to still being on 6LITERS Objective Vitals Vital Signs Date Time Temp Pulse Resp B/P (MAP) Pulse Ox O2 Delivery O2 Flow Rate FiO2 11/10/17 10:00 74 11/10/17 08:05 96 Nasal Cannula 6.00 11/10/17 08:00 97.7 65 18 123/58 (79) 98 11/10/17 08:00 65 11/10/17 06:00 64 11/10/17 04:00 98.6 61 17 126/61 (82) 96 11/10/17 04:00 61 11/10/17 02:00 62 11/10/17 00:00 71 11/10/17 00:00 98.4 71 26 136/64 (88) 94 11/09/17 22:39 16 11/09/17 22:00 76 11/09/17 20:00 74 11/09/17 20:00 98.4 74 20 127/62 (83) 94 11/09/17 19:53 95 Nasal Cannula 6.00 11/09/17 18:00 72 11/09/17 16:00 98.3 63 16 137/63 (87) 94 11/09/17 16:00 63 11/09/17 14:00 63 11/09/17 12:00 61 11/09/17 12:00 98.1 61 15 128/63 (84) 92 I/O 11/09/17 11/09/17 11/09/17 11/10/17 11/10/1718 07:00 15:00 23:00 07:00 15:00 23:00 Intake Total 500 ml 450 ml 830 ml 100 ml Output Total 1115 ml 1590 ml 820 ml Balance -615 ml -1140 ml 10 ml 100 ml Intake Oral 400 ml 250 ml 480 ml IV Total 100 ml 200 ml 350 ml 100 ml Output Urine Total 1000 ml 1500 ml 750 ml Drainage Total 115 ml 90 ml 70 ml # Bowel Movements 0 0 0 Result Diagram: 11/10/17 0313 11/10/173 Other Results Laboratory Tests Test 11/07/17 12:28 11/08/17 07:24 11/08/17 11:21 11/08/17 15:41 Activated Partial Thromboplast Time 48.6 SEC 61.3 SEC White Blood Count 14.5 TH/MM3 Red Blood Count 3.06 MIL/MM3 Hemoglobin 9.5 GM/DL 10.0 GM/DL 9.4 GM/DL Hematocrit 28.2 % 29.8 % 28.1 % Mean Corpuscular Volume 92.1 FL Mean Corpuscular Hemoglobin 31.0 PG Mean Corpuscular Hemoglobin Concent 33.7 % Red Cell Distribution Width 13.7 % Platelet Count 195 TH/MM3 Mean Platelet Volume 10.5 FL Blood Urea Nitrogen 52 MG/DL Creatinine 1.36 MG/DL Random Glucose 86 MG/DL Calcium Level 7.5 MG/DL Phosphorus Level 3.6 MG/DL Magnesium Level 2.4 MG/DL Sodium Level 147 MEQ/L Potassium Level 3.5 MEQ/L Chloride Level 110 MEQ/L Carbon Dioxide Level 26.5 MEQ/L Anion Gap 11 MEQ/L Estimat Glomerular Filtration Rate 52 ML/MIN Test 11/08/17 20:25 11/09/17 03:03 11/09/17 09:14 11/09/17 10:52 Hemoglobin 9.1 GM/DL 9.1 GM/DL 9.4 GM/DL Hematocrit 27.2 % 26.7 % 28.1 % White Blood Count 11.2 TH/MM3 Red Blood Count 2.87 MIL/MM3 Mean Corpuscular Volume 93.0 FL Mean Corpuscular Hemoglobin 31.6 PG Mean Corpuscular Hemoglobin Concent 34.0 % Red Cell Distribution Width 13.9 % Platelet Count 196 TH/MM3 Mean Platelet Volume 10.7 FL Neutrophils (%) (Auto) 91.7 % Lymphocytes (%) (Auto) 4.3 % Monocytes (%) (Auto) 3.9 % Eosinophils (%) (Auto) 0.0 % Basophils (%) (Auto) 0.1 % Neutrophils # (Auto) 10.2 TH/MM3 Lymphocytes # (Auto) 0.5 TH/MM3 Monocytes # (Auto) 0.4 TH/MM3 Eosinophils # (Auto) 0.0 TH/MM3 Basophils # (Auto) 0.0 TH/MM3 CBC Comment DIFF FINAL Differential Comment Activated Partial Thromboplast Time 69.9 SEC 77.6 SEC Blood Urea Nitrogen 51 MG/DL Creatinine 1.36 MG/DL Random Glucose 99 MG/DL Total Protein 5.1 GM/DL Albumin 1.9 GM/DL Calcium Level 7.2 MG/DL Phosphorus Level 3.9 MG/DL Magnesium Level 2.5 MG/DL Alkaline Phosphatase 59 U/L Aspartate Amino Transf (AST/SGOT) 64 U/L Alanine Aminotransferase (ALT/SGPT) 99 U/L Total Bilirubin 4.6 MG/DL Sodium Level 147 MEQ/L Potassium Level 3.5 MEQ/L Chloride Level 111 MEQ/L Carbon Dioxide Level 25.0 MEQ/L Anion Gap 11 MEQ/L Estimat Glomerular Filtration Rate 52 ML/MIN Protein Corrected Calcium 8.3 MG/DL Test 11/09/17 17:59 11/09/17 20:57 11/09/17 23:30 11/10/17 03:13 Hemoglobin 8.3 GM/DL 12.5 GM/DL 7.5 GM/DL Hematocrit 24.6 % 39.7 % 22.1 % Activated Partial Thromboplast Time 62.6 SEC 50.9 SEC Blood Urea Nitrogen 59 MG/DL Creatinine 1.47 MG/DL Random Glucose 134 MG/DL Calcium Level 7.6 MG/DL Sodium Level 147 MEQ/L Potassium Level 3.4 MEQ/L Chloride Level 110 MEQ/L Carbon Dioxide Level 25.1 MEQ/L Anion Gap 12 MEQ/L Estimat Glomerular Filtration Rate 48 ML/MIN Test 11/10/17 06:52 Activated Partial Thromboplast Time 65.8 SEC Imaging Last Impressions Chest X-Ray 11/09/17 0600 Signed Impressions: CONCLUSION: Bibasilar areas of consolidation and suspected effusions being worse on the lef t. Chest Ultrasound 11/07/17 0000 Signed Impressions: CONCLUSION: 1. Left-sided pleural effusion. Percutaneous Cholangiogram 11/01/17 Signed Impressions: CONCLUSION: 1. Uncomplicated percutaneous cholecystostomy as above. Abdomen/Pelvis CT 11/01/17 Signed Impressions: CONCLUSION: 1. Gallstones. There do appear to be areas of increased density within the com mon bile duct concerning for choledocholithiasis. 2. 4 mm nonobstructing left renal stone. 3. Sigmoid colon diverticula. 4. Bibasilar areas of consolidation or atelectasis being worse on the left wit h mild bilateral pleural effusions. Renal Ultrasound 10/31/17 Signed Impressions: CONCLUSION: 1. No hydronephrosis. 2. Increased cortical echogenicity consistent with medical renal disease. Head Magnetic Resonance Angiography 10/31/17 Signed Impressions: CONCLUSION: 1. Unremarkable MRA of the brain. Head CT 10/31/17 Signed Impressions: CONCLUSION: 1. Negative CT Head non contrast. 2. No evidence of acute infarct, hemorrhage, mass or edema. Brain MRI 10/31/17 Signed Impressions: CONCLUSION: 1. Senescent changes with minimal periventricular ischemic white matter demyel ination. 2. No acute abnormality. Specifically, no acute infarction, mass or hemorrhage . Gall Bladder Ultrasound 10/30/17 Signed Impressions: CONCLUSION: 1. Fatty infiltration of the liver. 2. Multiple stones in the gallbladder. No biliary tract obstruction. Extremity Arterial Study 10/28/17 Signed Impressions: CONCLUSION: 1. Abnormal ABIs, left greater than right. The left DAVID is significantly dimin ished at 0.14. Aorta w/Runoff CTA 10/28/17 Signed Impressions: Service Date/Time: Saturday, October 28, 2017 21:50 - CONCLUSION: 1. Acute occlusion of the left inflow with concern for short segment occlusion involving the distal right inflow. This raises concern for an embolic event. 2. Right lower extremity shows scattered disease throughout the common femoral artery, SFA and [id number] popliteal artery with three-vessel runoff to the foot. 3. Left lower extremity with reconstitution of the common femoral artery with diseased out flow and two vessel runoff to the foot as detailed above. 4. 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 5. Hepatic steatosis. 6. Cholelithiasis. Juanjose Mckeon Jr., MD Objective Remarks GENERAL: Awake and alert and oriented 2-3 talkative and cooperative appears uncomfortable still SKIN: Warm and dry. HEAD: Atraumatic. Normocephalic. EYES: Pupils equal and round. No scleral icterus. No injection or drainage. ENT: No nasal bleeding or discharge. Mucous membranes pink and moist. NECK: Trachea midline. No JVD. CARDIOVASCULAR: IRRegular rate and rhythm. S1-S2 no S3 or S4 RESPIRATORY: No accessory muscle use. Coarse breath sounds bilaterally breath sounds equal bilaterally. GASTROINTESTINAL: Abdomen soft, non-tender, nondistended. Hepatic and splenic margins not palpable. MUSCULOSKELETAL: Extremities without clubbing, cyanosis, +1-2 lower extremity edema bilaterally-- no obvious deformities. NEUROLOGICAL: Awake and alert. No obvious cranial nerve deficits. Motor grossly within normal limits. 4 out of 5 muscle strength in the arms and legs. Normal speech. PSYCHIATRIC: INAppropriate mood and affect; insight and judgment ABnormal. Medications and IVs Current Medications Morphine Sulfate (Morphine Inj) 4 mg ONCE ONCE IV PUSH Last administered on at 21:00; Start 10/28/17 at 20:15; Stop 10/28/17 at 20:16; Status DC Metoclopramide HCl (Reglan Inj) 10 mg ONCE ONCE IV PUSH Last administered on at 21:00; Start 10/28/17 at 20:15; Stop 10/28/17 at 20:16; Status DC Heparin Sodium (Porcine) (Heparin Inj) 7,000 units ONCE ONCE IV PUSH Last administered on 10/28/17at 21:39; Start 10/28/17 at 20:30; Stop 10/28/17 at 20:31 ; Status DC Heparin Sodium/ Dextrose 250 ml @ 15 mls/hr TITRATE PRN IV Coagulation Management Last administered on 10/28/17at 21:38; Start 10/28/17 at 20:30; Stop 10/28/17 at 22:21; Status DC Sodium Chloride 1,000 ml @ 999 mls/hr BOLUS ONCE IV Last administered on 10/28at 21:30; Start 10/28/17 at 21:30; Stop 10/28/17 at 22:30; Status DC Azithromycin 500 mg/Sodium Chloride 250 ml @ 250 mls/hr ONCE ONCE IV Last administered on 10/28/17at 22:14; Start 10/28/17 at 21:45; Stop 10/28/17 at 22:44 ; Status DC Ceftriaxone Sodium 1000 mg/ Sodium Chloride 100 ml @ 200 mls/hr ONCE ONCE IV Last administered on 10/28/17at 22:13; Start 10/28/17 at 21:45; Stop 10/28/17 at 22:14; Status DC Sodium Chloride 1,000 ml @ 999 mls/hr BOLUS ONCE IV Last administered on 10/28at 21:45; Start 10/28/17 at 21:45; Stop 10/28/17 at 22:45; Status DC Sodium Chloride 1,000 ml @ 124 mls/hr Q8H4M IV Last administered on 10/31/17at 16:27; Start 10/28/17 at 23:00; Stop 10/31/17 at 16:31; Status DC Sodium Chloride (NS Flush) 2 ml UNSCH PRN IV FLUSH FLUSH AFTER USING IV ACCESS ; Start 10/28/17 at 22:15 Sodium Chloride (NS Flush) 2 ml BID IV FLUSH Last administered on 11/10/17at 08: 09; Start 10/29/17 at 09:00 Acetaminophen (Tylenol) 650 mg Q6H PRN PO PAIN 1-5 AND/OR FEVER >101F; Start at 22:15 Hydromorphone HCl (Dilaudid Pf Inj) 1 mg Q4H PRN IV PAIN SCALE 6 TO 10 Last administered on 11/07/17at 05:15; Start 10/28/17 at 22:30 Famotidine (Pepcid Inj) 10 mg Q12HR IV PUSH Last administered on 11/06/17at 08: 07; Start 10/29/17 at 09:00; Stop 11/06/17 at 14:35; Status DC Ondansetron HCl (Zofran Inj) 4 mg Q6H PRN IV PUSH NAUSEA OR VOMITING; Start at 22:15 Temazepam (Restoril) 15 mg HS PRN PO INSOMNIA; Start 10/28/17 at 22:15; Status Future Hold Albuterol/ Ipratropium (Duoneb Neb) 1 ampule Q2HR NEB PRN INH WHEEZING Last administered on 11/09/17at 03:58; Start 10/28/17 at 22:15 Heparin Sodium (Porcine) (Heparin Inj) 5,000 units Q8HR SQ ; Start 10/28/17 at 22:30; Stop 10/28/17 at 22:30; Status DC Miscellaneous Information ([facility]) 1 [id number] Last administered on 10/28/17at 22:15; Start 10/28/17 at 22:15 Chlorhexidine Gluconate (Chlorhexidine 2% Cloth) Taper DAILY@04 TOP Last administered on 11/10/17at 04:00; Start 10/29/17 at 04:00; Stop 10/25/18 at 03:59 Chlorhexidine Gluconate (Chlorhexidine 2% Cloth) 3 pack UNSCH PRN TOP HYGIENIC CARE; Start 10/28/17 at 22:15 Senna/Docusate Sodium (Elvira-Colace) 1 tab BID PO Last administered on at 08:21; Start 10/29/17 at 09:00; Status Future Hold Magnesium Hydroxide (Milk Of Magnesia Liq) 30 ml Q12H PRN PO Mild constipation ; Start 10/28/17 at 22:15 Sennosides (Senokot) 17.2 mg Q12H PRN PO Moderate constipation; Start 10/28/17 at 22:15 Bisacodyl (Dulcolax Supp) 10 mg DAILY PRN RECTAL SEVERE CONSITIPATION; Start at 22:15 Lactulose (Lactulose Liq) 30 ml DAILY PRN PO SEVERE CONSITIPATION; Start at 22:15 Iodixanol (VISIPAQUE 320 INJ (Rad CT)) 100 ml STK-MED ONCE IVCONTRAST Last administered on 10/28/17at 22:10; Start 10/28/17 at 22:10; Stop 10/28/17 at 22:11 ; Status DC Methylprednisolone Sodium Succinate (SoluMEDROL INJ) 40 mg Q6HR IV PUSH Last administered on 11/10/17at 05:12; Start 10/29/17 at 00:00 Albuterol/ Ipratropium (Duoneb Neb) 1 ampule Q4HR NEB NEB Last administered on 11/01/17at 07:37; Start 10/29/17 at 00:00; Stop 11/01/17 at 09:30; Status DC Heparin Sodium/ Dextrose 250 ml @ 15 mls/hr TITRATE PRN IV Coagulation Management Last administered on 10/30/17 05:22; Start 10/28/17 at 22:30; Stop 10/30/17 at 10:02; Status DC Azithromycin 500 mg/Sodium Chloride 250 ml @ 250 mls/hr Q24H IV Last administered on 10/31/17at 20:50; Start 10/29/17 at 22:00; Stop 11/01/17 at 09:30 ; Status DC Ceftriaxone Sodium 1000 mg/ Sodium Chloride 100 ml @ 200 mls/hr Q12H IV Last administered on 10/29/17at 08:39; Start 10/29/17 at 09:00; Stop 10/29/17 at 11:27 ; Status DC Diltiazem HCl (Cardizem Cd) 240 mg DAILY PO Last administered on 10/30/17at 09: 02; Start 10/29/17 at 09:00; Stop 11/08/17 at 09:27; Status DC Sodium Chloride 1,000 ml @ 999 mls/hr BOLUS ONCE IV Last administered on 10/29at 01:45; Start 10/29/17 at 01:45; Stop 10/29/17 at 02:45; Status DC Sodium Chloride 1,000 ml @ 999 mls/hr BOLUS ONCE IV Last administered on 10/29at 02:35; Start 10/29/17 at 01:45; Stop 10/29/17 at 02:45; Status DC Piperacillin Sod/ Tazobactam Sod 50 ml @ 100 mls/hr Q6H IV Last administered on 10/31/17at 12:54; Start 10/29/17 at 11:30; Stop 10/31/17 at 13:55; Status DC Aspirin (Aspirin Chew) 81 mg DAILY CHEW Last administered on 11/10/17at 08:08; Start 10/29/17 at 11:45; Status Future hold Miscellaneous Medication ([facility]) Discontinue all forms of heparin... ONCE ONCE OTHER Last administered on 10/30/17at 10:15; Start at 10:15; Stop 10/30/17 at 10:18; Status DC Argatroban 250 mg/ Sodium Chloride 252.5 ml @ 2.69 mls/hr TITRATE PRN IV aPTT < 50 Last administered on 10/30/17at 13:05; Start 10/30/17 at 10:15; Stop at 14:41; Status DC Esmolol HCl/ Sodium Chloride 250 ml @ 26.7 mls/hr TITRATE PRN IV Blood Pressure Management Last administered on 11/02/17at 13:42; Start 10/31/17 at 01: 45; Stop 11/03/17 at 07:05; Status DC Esmolol HCl (Brevibloc Bolus Inj) 45 mg BOLUS PRN IV PUSH Rebolus Last administered on 10/31/17at 02:11; Start 10/31/17 at 01:45; Stop 11/03/17 at 07:05 ; Status DC Phenylephrine HCl 40 mg/Dextrose 500 ml @ 30 mls/hr TITRATE PRN IV Blood pressure management Last administered on 10/31/17at 06:47; Start 10/31/17 at 06: 15; Stop 11/03/17 at 07:05; Status DC Terbutaline Sulfate (Brethine Inj) 1 mg UNSCH PRN SQ For Extravasation; Start 10/31/17 at 06:15 Etomidate (Amidate Inj) 20 mg ONCE ONCE IV PUSH Last administered on at 06:15; Start 10/31/17 at 06:15; Stop 10/31/17 at 06:16; Status DC Rocuronium [place] (Zemuron Inj) 50 mg BOLUS ONCE IV Last administered on 10/31at 06:15; Start 10/31/17 at 06:15; Stop 10/31/17 at 06:16; Status DC Etomidate (Amidate Inj) 40 mg STK-MED ONCE .ROUTE ; Start 10/31/17 at 06:14; Stop 10/31/17 at 06:15; Status DC Phenylephrine HCl (Neosynephrine Inj) 10 mg STK-MED ONCE .ROUTE ; Start at 06:30; Stop 10/31/17 at 06:31; Status DC Propofol 50 ml @ As Directed STK-MED ONCE .ROUTE Last administered on at 06:44; Start 10/31/17 at 06:44; Stop 10/31/17 at 06:45; Status DC Propofol 100 ml @ 2.73 mls/hr TITRATE PRN IV SEDATION Last administered on at 04:32; Start 10/31/17 at 07:00; Stop 11/08/17 at 08:50; Status DC Sodium Chloride 1,000 ml @ 999 mls/hr BOLUS ONCE IV Last administered on 10/31at 07:30; Start 10/31/17 at 07:15; Stop 10/31/17 at 08:15; Status DC Chlorhexidine Gluconate (Peridex 0.12% Liq) 15 ml BID@08,20 MT Last administered on 11/08/17at 20:00; Start 10/31/17 at 08:00 Sodium Bicarbonate (Sodium Bicarbonate 8.4% Inj) 50 meq ONCE ONCE IV PUSH Last administered on 10/31/17at 08:58; Start 10/31/17 at 07:30; Stop 10/31/17 at 07:46; Status DC Ampicillin Sodium/ Sulbactam Sodium 1500 mg/Sodium Chloride 100 ml @ 200 mls/ hr Q6H IV Last administered on 11/01/17at 03:30; Start 10/31/17 at 15:00; Stop 11/01/17 at 07:46; Status DC Diatrizoate Meglum/ Diatrizoate Sod ( Gastroview Liq) 18 ml ONCE ONCE PO Last administered on 10/31/17at 21:13; Start 10/31/17 at 15:15; Stop 10/31/17 at 15:16; Status DC Sodium Bicarbonate 150 meq/Dextrose 1,150 ml @ 83 mls/hr [id number] IV Last administered on 11/02/17at 19:33; Start 10/31/17 at 17:00; Stop 11/03/17 at 07:00 ; Status DC Ampicillin Sodium/ Sulbactam Sodium 1500 mg/Sodium Chloride 100 ml @ 200 mls/ hr Q12H IV Last administered on 11/02/17at 13:48; Start 11/01/17 at 15:00; Stop 11/02/17 at 16:27; Status DC Albuterol/ Ipratropium (Duoneb Neb) 1 ampule Q4HR NEB NEB Last administered on 11/05/17at 11:49; Start 11/01/17 at 12:00; Stop 11/05/17 at 11:59; Status DC Calcium Gluconate 2 gm/Dextrose 120 ml @ 120 mls/hr ONCE ONCE IV Last administered on 11/02/17at 11:36; Start 11/02/17 at 12:00; Stop 11/02/17 at 12:59 ; Status DC Hydralazine HCl (Apresoline Inj) 20 mg Q4H PRN IV PUSH SBP>160, DBP>90; Start 11/02/17 at 14:00 Metoprolol Tartrate (Lopressor) 25 mg Q12HR PO Last administered on 11/02/17at 19:34; Start 11/02/17 at 14:00; Stop 11/03/17 at 07:05; Status DC Labetalol HCl (Trandate Inj) 10 mg ONCE ONCE IV PUSH Last administered on 11/02at 15:12; Start 11/02/17 at 15:15; Stop 11/02/17 at 15:16; Status DC Ampicillin Sodium/ Sulbactam Sodium 1500 mg/Sodium Chloride 100 ml @ 200 mls/ hr Q8H IV Last administered on 11/03/17at 06:23; Start 11/02/17 at 23:00; Stop 11/03/17 at 13:47; Status DC Clonidine (Catapres) 0.1 mg NOW ONCE PO Last administered on 11/02/17at 19:35; Start 11/02/17 at 17:00; Stop 11/02/17 at 17:01; Status DC Hydralazine HCl (Apresoline) 10 mg Q8HR PO Last administered on 11/03/17at 04:43 ; Start 11/02/17 at 18:00; Stop 11/03/17 at 07:05; Status DC Clonidine (Catapres) 0.1 mg Q6H PRN PO SBP>160, DBP>90 Last administered on at 02:35; Start 11/02/17 at 23:45 Nicardipine HCl 25 mg/Sodium Chloride 260 ml @ 52 mls/hr TITRATE PRN IV Blood pressure management Last administered on 11/03/17at 01:19; Start 11/03/17 at 00: 30; Stop 11/04/17 at 13:52; Status DC Heparin Sodium/ Dextrose 250 ml @ 12 mls/hr TITRATE PRN IV Coagulation Management Last administered on 11/10/17at 00:51; Start 11/03/17 at 07:00 Hydralazine HCl (Apresoline) 25 mg Q8HR PO Last administered on 11/10/17at 05:12 ; Start 11/03/17 at 14:00 Metoprolol Tartrate (Lopressor) 50 mg Q12HR PO Last administered on 11/03/17at 20:08; Start 11/03/17 at 09:00; Stop 11/04/17 at 14:26; Status DC Furosemide (Lasix Inj) 40 mg DAILY IV PUSH Last administered on 11/10/17at 08:09 ; Start 11/03/17 at 13:00 Ampicillin Sodium/ Sulbactam Sodium 1500 mg/Sodium Chloride 100 ml @ 200 mls/ hr Q6H IV Last administered on 11/05/17at 11:30; Start 11/03/17 at 19:00; Stop 11/05/17 at 12:04; Status DC Sodium Chloride 5.5 meq/Sodium Acetate 29.5 meq/ Potassium Chloride 20 meq/ Magnesium Chloride 5 meq/ Calcium Chloride 4.5 meq/ Multivitamins 10 ml/Folic Acid 1 mg/Amino Acids/ Dextrose 1,034.7969 ml @ 42 mls/hr Q24H IV Last administered on 11/03/17at 20:10; Start 11/03/17 at 20:00; Stop 11/04/17 at 14:02 ; Status DC Fat Emulsion Intravenous 250 ml @ 10 mls/hr Q24H IV Last administered on at 20:12; Start 11/03/17 at 20:00; Stop 11/04/17 at 14:02; Status DC Acetylcysteine (Mucomyst 20% Neb) 2 ml Q6HR NEB NEB ; Start 11/03/17 at 18:00; Stop 11/05/17 at 07:31; Status DC Furosemide (Lasix Inj) 40 mg ONCE ONCE IV PUSH Last administered on 11/04/17at 15:01; Start 11/04/17 at 14:00; Stop 11/04/17 at 14:01; Status DC Metoprolol Tartrate (Lopressor) 25 mg Q12HR PO ; Start 11/04/17 at 21:00; Stop 11/04/17 at 21:00; Status DC Labetalol HCl (Trandate) 100 mg Q12HR PO Last administered on 11/07/17at 19:41; Start 11/04/17 at 21:00; Status Future Hold Acetylcysteine (Mucomyst 20% Neb) 2 ml Q6HR NEB NEB Last administered on at 03:58; Start 11/05/17 at 10:00; Stop 11/09/17 at 09:59; Status DC Ampicillin Sodium/ Sulbactam Sodium 3000 mg/Sodium Chloride 100 ml @ 200 mls/ hr Q6H IV ; Start 11/05/17 at 13:00; Stop 11/05/17 at 13:00; Status DC Ampicillin Sodium/ Sulbactam Sodium 3 gm/Sodium Chloride 100 ml @ 200 mls/hr Q6H IV Last administered on 11/10/17at 08:09; Start 11/05/17 at 20:00; Stop at 00:00 Dexmedetomidine HCl 200 mcg/ Sodium Chloride 52 ml @ 5.59 mls/hr TITRATE PRN IV SEDATION Last administered on 11/07/17at 05:27; Start 11/06/17 at 10:00; Stop 11/08/17 at 08:50; Status DC Famotidine (Pepcid Inj) 20 mg Q12HR IV PUSH Last administered on 11/10/17at 08:09 ; Start 11/06/17 at 21:00 Furosemide (Lasix Inj) 40 mg ONCE ONCE IV PUSH ; Start 11/07/17 at 08:45; Stop 11/07/17 at 08:46; Status DC Acetaminophen/ Hydrocodone Bitart ([place] 7.5-325 Mg) 1 tab Q6H PRN PO PAIN SCALE 8 TO 10 Last administered on 11/09/17at 21:39; Start 11/07/17 at 08:00 Diltiazem HCl (Cardizem Cd) 240 mg DAILY PO Last administered on 11/10/17at 08:08 ; Start 11/08/17 at 09:30 Potassium Chloride (KCl) 20 meq ONCE ONCE PO Last administered on 11/10/17at 05: 12; Start 11/10/17 at 05:00; Stop 11/10/17 at 05:01; Status DC A/P Problem List: (1) Pneumonia ICD Code: J18.9 - Pneumonia, unspecified organism Status: Acute (2) Sepsis ICD Code: A41.9 - Sepsis, unspecified organism Status: Acute (3) Ischemia of left lower extremity ICD Code: I99.8 - Other disorder of circulatory system Status: Acute Assessment and Plan LLL Pneumonia with sepsis, respiratory failure Patient was intubated on 10/31, he was extubated on 11/07 He is still somewhat labored with his breathing, slight tachypnea, needing 6 L of oxygen via nasal cannula Watching patient in ICU, may transfer out when respiratory parameters improved Continue with IV Zosyn Continue COPD coverage COPD exacerbation Complicated picture including pneumonia, sepsis, respiratory failure, A. fib, fluid overload Continuing steroids IV, continue duo nebs as needed Oxygenation remaining in low 90s despite 6 L of oxygen via nasal cannula Atrial fibrillation with RVR Patient has periodic irregularity but is overall rate controlled at the present 2D echo showed ejection fraction of 50% Previous x-ray shows left-sided pleural effusion Continue Cardizem Labetalol previously held Follow on telemetry Hypocalcemia Borderline calcium depletion on protein corrected calcium level We will repeat level in the a.m., treat if trend is downward Acute on chronic left limb ischemia Patient reports that he had a stent placed which reestablish his blood flow The leg is currently warm, no evidence of ischemia Acute choledocholithiasis Multiple gallstones present on ultrasound GI recommended no intervention at this time Cholecystostomy tube in place Acute thrombocytopenia Most likely from sepsis with consumption HIT negative, CHARLEEN negative Continue heparin, continue aspirin DVT prophylaxis Heparin Discharge planning Patient has not yet breathing comfortably, will keep him on the ICU another day and reevaluate Discharge Planning MONITOR ICU STILL ON 6L BY MO Problem Qualifiers (1) Pneumonia: Qualified Codes: J18.1 - Lobar pneumonia, unspecified organism (2) Sepsis: Qualified Codes: A41.9 - Sepsis, unspecified organism Spencer Pace DO Nov 10, 2017 10:46
[2017-11-10] MEDS ORDERED: POTASSIUM CHLOR 40 MEQ PREMIX 100 ML IV PRN ×2 (11:00)
[2017-11-10] MEDS ORDERED: MAGNESIUM SULFATE INJ 4 GM in SODIUM CHLORIDE 0.9% INJ 92 ML IV PRN (11:00)
[2017-11-10] MEDS ORDERED: POTASSIUM PHOSPHATE MONOBASIC 500 MG TAB PO PRN (11:00)
[2017-11-10] MEDS ORDERED: SODIUM PHOSPHATE INJ 30 MMOL in SODIUM CHLOR 0.9% 250 ML INJ 240 ML IV PRN (11:00)
[2017-11-10] MEDS ORDERED: MAGNESIUM SULFATE INJ 2 GM in SODIUM CHLORIDE 0.9% INJ 96 ML IV PRN (11:00)
[2017-11-10] MEDS ORDERED: POTASSIUM PHOSPHATE INJ 30 MMOL in SODIUM CHLOR 0.9% 250 ML INJ 250 ML IV PRN (11:00)
[2017-11-10] MEDS ORDERED: MAGNESIUM OXIDE 400 MG TAB PO PRN (11:00)
[2017-11-10] MEDS ORDERED: POTASSIUM PHOSPHATE MONOBASIC 500 MG TAB PO/TUBE PRN (11:00)
[2017-11-10] MEDS ORDERED: POTASSIUM CHLORIDE 25 MEQ EFFERVESCENT TAB PO PRN (11:00)
--- NOTE | 2017-11-10 11:05 | HHI.GIFU ---
Subjective Remarks Pt sleeping during exam, in no apparent distress Remains on Heparin gtt No BMs documented since 11/08 (Annika Tenorio) Objective Vitals I&O Vital Signs Date Time Temp Pulse Resp B/P (MAP) Pulse Ox O2 Delivery O2 Flow Rate FiO2 11/10/17 10:00 74 11/10/17 08:05 96 Nasal Cannula 6.00 11/10/17 08:00 97.7 65 18 123/58 (79) 98 11/10/17 08:00 65 11/10/17 06:00 64 11/10/17 04:00 98.6 61 17 126/61 (82) 96 11/10/17 04:00 61 11/10/17 02:00 62 11/10/17 00:00 71 11/10/17 00:00 98.4 71 26 136/64 (88) 94 11/09/17 22:39 16 11/09/17 22:00 76 11/09/17 20:00 74 11/09/17 20:00 98.4 74 20 127/62 (83) 94 11/09/17 19:53 95 Nasal Cannula 6.00 11/09/17 18:00 72 11/09/17 16:00 98.3 63 16 137/63 (87) 94 11/09/17 16:00 63 11/09/17 14:00 63 11/09/17 12:00 61 11/09/17 12:00 98.1 61 15 128/63 (84) 92 I/O 11/09/17 11/09/17 11/09/17 11/10/17 11/10/17 11/10/17 07:00 15:00 23:00 07:00 15:00 23:00 Intake Total 500 ml 450 ml 830 ml 100 ml Output Total 1115 ml 1590 ml 820 ml Balance -615 ml -1140 ml 10 ml 100 ml Intake Oral 400 ml 250 ml 480 ml IV Total 100 ml 200 ml 350 ml 100 ml Output Urine Total 1000 ml 1500 ml 750 ml Drainage Total 115 ml 90 ml 70 ml # Bowel Movements 0 0 0 Laboratory Laboratory Tests Test 11/09/17 17:59 11/09/17 20:57 11/09/17 23:30 11/10/17 03:13 Hemoglobin 8.3 12.5 7.5 Hematocrit 24.6 39.7 22.1 Activated Partial Thromboplast Time 62.6 50.9 Blood Urea Nitrogen 59 Creatinine 1.47 Random Glucose 134 Calcium Level 7.6 Sodium Level 147 Potassium Level 3.4 Chloride Level 110 Carbon Dioxide Level 25.1 Anion Gap 12 Estimat Glomerular Filtration Rate 48 Test 11/10/17 06:52 Activated Partial Thromboplast Time 65.8 Date/Time Source Procedure Growth Status 10/30/17 20:38 Blood Peripheral Aerobic Blood Culture - Final NO GROWTH IN 5 DAYS Complete 10/30/17 20:38 Blood Peripheral Anaerobic Blood Culture - Final NO GROWTH IN 5 DAYS Complete 11/01/17 11:05 Fluid Other Gram Stain - Final Complete 11/01/17 11:05 Fluid Other Body Fluid Culture - Final Complete 11/04/17 05:08 Stool Stool Stool Occult Blood (NUBIA) - Final HEMOCCULT POSITIVE Complete 10/31/17 10:40 Sputum Endotracheal Gram Stain - Final Complete 10/31/17 10:40 Sputum Endotracheal Sputum Culture - Final HEAVY GROWTH NORMAL RESPIRATORY TERRELL Complete 10/29/17 00:00 Urine Catheterized Urine Urine Culture - Final Enterococcus Faecalis Complete Imaging Last Impressions Chest X-Ray 11/09/17 0600 Signed Impressions: CONCLUSION: Bibasilar areas of consolidation and suspected effusions being worse on the lef t. Chest Ultrasound 11/07/17 0000 Signed Impressions: CONCLUSION: 1. Left-sided pleural effusion. Percutaneous Cholangiogram 11/01/17 0000 Signed Impressions: CONCLUSION: 1. Uncomplicated percutaneous cholecystostomy as above. Abdomen/Pelvis CT 11/01/17 0000 Signed Impressions: CONCLUSION: 1. Gallstones. There do appear to be areas of increased density within the com mon bile duct concerning for choledocholithiasis. 2. 4 mm nonobstructing left renal stone. 3. Sigmoid colon diverticula. 4. Bibasilar areas of consolidation or atelectasis being worse on the left wit h mild bilateral pleural effusions. Renal Ultrasound 10/31/17 0000 Signed Impressions: CONCLUSION: 1. No hydronephrosis. 2. Increased cortical echogenicity consistent with medical renal disease. Head Magnetic Resonance Angiography 10/31/17 0000 Signed Impressions: CONCLUSION: 1. Unremarkable MRA of the brain. Head CT 10/31/17 0000 Signed Impressions: CONCLUSION: 1. Negative CT Head non contrast. 2. No evidence of acute infarct, hemorrhage, mass or edema. Brain MRI 10/31/17 Signed Impressions: CONCLUSION: 1. Senescent changes with minimal periventricular ischemic white matter demyel ination. 2. No acute abnormality. Specifically, no acute infarction, mass or hemorrhage . Gall Bladder Ultrasound 10/30/17 Signed Impressions: CONCLUSION: 1. Fatty infiltration of the liver. 2. Multiple stones in the gallbladder. No biliary tract obstruction. Extremity Arterial Study 10/28/17 Signed Impressions: CONCLUSION: 1. Abnormal ABIs, left greater than right. The left DAVID is significantly dimin ished at 0.14. Aorta w/Runoff CTA 10/28/17 Signed Impressions: Service Date/Time: Saturday, October 28, 2017 21:50 - CONCLUSION: 1. Acute occlusion of the left inflow with concern for short segment occlusion involving the distal right inflow. This raises concern for an embolic event. 2. Right lower extremity shows scattered disease throughout the common femoral artery, SFA and [id number] popliteal artery with three-vessel runoff to the foot. 3. Left lower extremity with reconstitution of the common femoral artery with diseased out flow and two vessel runoff to the foot as detailed above. 4. 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 5. Hepatic steatosis. 6. Cholelithiasis. Juanjose Mckeon Jr., MD Physical Exam HEENT: Normocephalic; atraumatic (+) icterus CHEST - Even/unlabored- on NC CARDIAC: RRR ABDOMEN: Distended, soft, bowel sounds active, nontender. Biliary drain with good drainage. SKIN: Normal; no rash; no jaundice. [employer]ING [employer]OB [employer]ITLES: Alert and oriented (Annika Tenorio) Assessment and Plan Assessment: (1) Sepsis ICD Codes: A41.9 - Sepsis, unspecified organism Status: Acute Plan Assessment: - Choledocholithiasis with elevated LFTs, trending down CT abdomen WO IV contrast (11/01) --> Gallstones, appears to be areas of increased density within the common bile duct concerning for choledocholithiasis. S/P IR for percutaneous cholecystostomy drain on 11/01 - Culture with heavy growth of gram positive and gram negative enteric terrell, no further work up Pt on Unasyn - Elevated LFTs- likely secondary to obstruction from above but liver work up pending Iron-145 TIBC-214 %sat-67.7 Ferritin-248 AFP-6.9 Hepatitis panel negative [place], AMA, ASMA negative. AAT-215 Ceruloplasmin-24 - Anemia, normocytic- with Hemoccult positive stools- no obvious GIB - Cold left leg- Heparin gtt (11/08) Pt now extubated, alert and oriented, tolerating PO. Denies nausea, vomiting, abdominal pain. Discussed plan for ERCP this week. Will need clearance to DC Heparin gtt past midnight for procedure. Pt had multiple BMs yesterday, Hemoccult stool ordered per CCM, has had no BM over night or today per RN. H/H stable (11/10) Pt remains on 6 L O2 via NC. Drop in hgb noted, no BMs documented since 11/08. Plan ERCP when stable- this week- still on 6 L O2 Monitor output from cholecystostomy drain Monitor LFTs Antibiotics per ID Monitor H/H Notify GI if any obvious GIB Of note, on Heparin gtt Further recommendations based on clinical course Pt has been seen and examined by myself and Dr. Coats and this note is written on his behalf (Annika Tenorio) Physician Comments As above, will need ERCP when more stable. (James Coats MD) Problem Qualifiers (1) Sepsis: Qualified Codes: A41.9 - Sepsis, unspecified organism Annika Tenorio Nov 10, 2017 11:05 James Coats MD Nov 10, 2017 14:27
[2017-11-10] MEDS: guaiFENesin E.R. 600 MG TAB PO SCH ×2 (11:22→20:23)
[2017-11-10] MEDS: ACETAMINOPHEN/HYDROcodone 325 MG/7.5 MG TAB PO PRN (14:51)
--- NOTE | 2017-11-10 18:48 | HHI.PR ---
Subjective Remarks 67 YOWM with COPD,Sepsis, ischemia of leg Developed RF, intubated Extubated On NC mild sob cough, occ sp No Fever No new complaint Objective Vital Signs Vital Signs Date Time Temp Pulse Resp B/P (MAP) Pulse Ox O2 Delivery O2 Flow Rate FiO2 11/10/17 18:00 74 11/10/17 16:04 20 11/10/17 16:00 98.2 74 18 114/58 (76) 94 11/10/17 16:00 74 11/10/17 14:00 70 11/10/17 12:00 97.7 81 24 115/77 (90) 94 11/10/17 12:00 81 11/10/17 10:00 74 11/10/17 08:05 96 Nasal Cannula 6.00 11/10/17 08:00 97.7 65 18 123/58 (79) 98 11/10/17 08:00 65 11/10/17 06:00 64 11/10/17 04:00 98.6 61 17 126/61 (82) 96 11/10/17 04:00 61 11/10/17 02:00 62 11/10/17 00:00 71 11/10/17 00:00 98.4 71 26 136/64 (88) 94 11/09/17 22:00 76 11/09/17 20:00 74 11/09/17 20:00 98.4 74 20 127/62 (83) 94 11/09/17 19:53 95 Nasal Cannula 6.00 I/O 11/09/17 11/09/17 11/09/17 11/10/17 11/10/17 11/10/17 07:00 15:00 23:00 07:00 15:00 23:00 Intake Total 500 ml 450 ml 830 ml 100 ml 960 ml Output Total 1115 ml 1590 ml 820 ml 1120 ml Balance -615 ml -1140 ml 10 ml 100 ml -160 ml Intake Oral 400 ml 250 ml 480 ml 960 ml IV Total 100 ml 200 ml 350 ml 100 ml Output Urine Total 1000 ml 1500 ml 750 ml 1100 ml Drainage Total 115 ml 90 ml 70 ml 20 ml # Bowel Movements 0 0 0 Result Diagram: 11/10/1731211/10/173 Objective Remarks GENERAL: WBWN WM, mild sob SKIN: Warm and dry. HEAD: Normocephalic. EYES: No scleral icterus. No injection or drainage. NECK: Supple, trachea midline. No JVD or lymphadenopathy. CARDIOVASCULAR: Regular rate and rhythm without murmurs, gallops, or rubs. RESPIRATORY: Breath sounds equal bilaterally. No accessory muscle use. GASTROINTESTINAL: Abdomen soft, non-tender, nondistended. MUSCULOSKELETAL: No cyanosis, or edema. Cold left leg BACK: Nontender without obvious deformity. No CVA tenderness. A/P Assessment and Plan IMPRESSION: 1. Sepsis. 2. Chronic obstructive pulmonary disease, mild exacerbation. 3. Left basilar infiltrate. 4. Urinary tract infection 5. Encephalopathy. 6. Cold left leg. 7. Thrombocytopenia. 8. VDRF--extubated 11/07 PLAN: Cont Abx per ID Heparin drip Monitor Plt count Monitor renal functions Supplement 02 Encourage PO XU RN at Dennis oJhnson MD Nov 10, 2017 18:48
[2017-11-10] MEDS: RESP: ALBUTEROL 2.5 MG/IPRATROPIUM 0.5 MG NEB (PRN) INH (19:58)
[2017-11-10] MEDS: BUDESONIDE-FORMOTEROL 160/4.5 MCG INHALER INH SCH (20:22)
[2017-11-11] VITALS (16 sets, daily range): BP systolic 74–143; BP diastolic 50–69; PULSE 58–91; RESP 12–28; TEMP 97.3–98.7; O2SAT 92–100
[2017-11-11] MEDS: methylPREDNISolone SOD SUCC 40 MG/1 ML VIAL IV PUSH SCH ×4 (00:30→18:00)
[2017-11-11] MEDS: AMPICILLIN/SULBAC 3 GM/NS 100 ML IV SCH ×8 (01:14→20:26)
[2017-11-11] MEDS: CHLORHEXIDINE GLUCONATE 2 % 1 PACK (2 CLOTHS) TOP SCH (04:00)
[2017-11-11] MEDS: HEPARIN-D5W 25,000 U/250 ML 250 ML IV PRN (05:14)
[2017-11-11] MEDS: hydrALAZINE HCL 25 MG TAB PO SCH ×3 (05:17→21:58)
[2017-11-11] MEDS: CHLORHEXIDINE 0.12% (ORAL KIT) 15 ML CUP MT SCH ×2 (08:00→20:00)
[2017-11-11] MEDS: BUDESONIDE-FORMOTEROL 160/4.5 MCG INHALER INH SCH ×2 (09:00→20:27)
--- NOTE | 2017-11-11 10:03 | HHI.GIFU ---
Subjective Remarks Pt awake resting in bed, no GI complaints at this time Remains on 5 L O2 via NC PTBD with small amount of dark bile colored drainage Pt denies any BM in a few days (Annika Tenorio) Objective Vitals I&O Vital Signs Date Time Temp Pulse Resp B/P (MAP) Pulse Ox O2 Delivery O2 Flow Rate FiO2 11/11/17 08:13 97 Nasal Cannula 4.00 11/11/17 06:00 73 11/11/17 04:00 79 11/11/17 04:00 97.6 79 20 103/57 (72) 94 11/11/17 02:00 58 11/11/17 00:00 98.1 61 12 105/59 (74) 95 11/11/17 00:00 61 11/10/17 22:00 60 11/10/17 20:00 69 11/10/17 20:00 92 Nasal Cannula 6.00 11/10/17 20:00 97.9 69 18 109/62 (78) 95 11/10/17 18:00 74 11/10/17 16:04 20 11/10/17 16:00 98.2 74 18 114/58 (76) 94 11/10/17 16:00 74 11/10/17 14:00 70 11/10/17 12:00 97.7 81 24 115/77 (90) 94 11/10/17 12:00 81 I/O 11/10/17 11/10/17 11/10/17 11/11/17 11/11/17 11/11/17 07:00 15:00 23:00 07:00 15:00 23:00 Intake Total 830 ml 100 ml 1160 ml 710 ml Output Total 820 ml 1120 ml 930 ml Balance 10 ml 100 ml 40 ml -220 ml Intake Oral 480 ml 960 ml 360 ml IV Total 350 ml 100 ml 200 ml 350 ml Output Urine Total 750 ml 1100 ml 900 ml Drainage Total 70 ml 20 ml 30 ml # Bowel Movements 0 0 Laboratory Laboratory Tests Test 11/10/17 13:00 11/10/17 14:30 11/10/17 20:28 Phosphorus Level 4.3 Activated Partial Thromboplast Time 53.9 51.2 Date/Time Source Procedure Growth Status 10/30/17 20:38 Blood Peripheral Aerobic Blood Culture - Final NO GROWTH IN 5 DAYS Complete 10/30/17 20:38 Blood Peripheral Anaerobic Blood Culture - Final NO GROWTH IN 5 DAYS Complete 11/01/17 11:05 Fluid Other Gram Stain - Final Complete 11/01/17 11:05 Fluid Other Body Fluid Culture - Final Complete 11/04/17 05:08 Stool Stool Stool Occult Blood (NUBIA) - Final HEMOCCULT POSITIVE Complete 10/31/17 10:40 Sputum Endotracheal Gram Stain - Final Complete 10/31/17 10:40 Sputum Endotracheal Sputum Culture - Final HEAVY GROWTH NORMAL RESPIRATORY TERRELL Complete 10/29/17 00:00 Urine Catheterized Urine Urine Culture - Final Enterococcus Faecalis Complete Imaging Last Impressions Chest X-Ray 11/09/17 0600 Signed Impressions: CONCLUSION: Bibasilar areas of consolidation and suspected effusions being worse on the lef t. Chest Ultrasound 11/07/17 Signed Impressions: CONCLUSION: 1. Left-sided pleural effusion. Percutaneous Cholangiogram 11/01/17 Signed Impressions: CONCLUSION: 1. Uncomplicated percutaneous cholecystostomy as above. Abdomen/Pelvis CT 11/01/17 Signed Impressions: CONCLUSION: 1. Gallstones. There do appear to be areas of increased density within the com mon bile duct concerning for choledocholithiasis. 2. 4 mm nonobstructing left renal stone. 3. Sigmoid colon diverticula. 4. Bibasilar areas of consolidation or atelectasis being worse on the left wit h mild bilateral pleural effusions. Renal Ultrasound 10/31/17 Signed Impressions: CONCLUSION: 1. No hydronephrosis. 2. Increased cortical echogenicity consistent with medical renal disease. Head Magnetic Resonance Angiography 10/31/17 Signed Impressions: CONCLUSION: 1. Unremarkable MRA of the brain. Head CT 10/31/17 Signed Impressions: CONCLUSION: 1. Negative CT Head non contrast. 2. No evidence of acute infarct, hemorrhage, mass or edema. Brain MRI 10/31/17 Signed Impressions: CONCLUSION: 1. Senescent changes with minimal periventricular ischemic white matter demyel ination. 2. No acute abnormality. Specifically, no acute infarction, mass or hemorrhage . Gall Bladder Ultrasound 10/30/17 Signed Impressions: CONCLUSION: 1. Fatty infiltration of the liver. 2. Multiple stones in the gallbladder. No biliary tract obstruction. Extremity Arterial Study 10/28/17 Signed Impressions: CONCLUSION: 1. Abnormal ABIs, left greater than right. The left DAVID is significantly dimin ished at 0.14. Aorta w/Runoff CTA 10/28/17 0000 Signed Impressions: Service Date/Time: Saturday, October 28, 2017 21:50 - CONCLUSION: 1. Acute occlusion of the left inflow with concern for short segment occlusion involving the distal right inflow. This raises concern for an embolic event. 2. Right lower extremity shows scattered disease throughout the common femoral artery, SFA and [id number] popliteal artery with three-vessel runoff to the foot. 3. Left lower extremity with reconstitution of the common femoral artery with diseased out flow and two vessel runoff to the foot as detailed above. 4. 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 5. Hepatic steatosis. 6. Cholelithiasis. Juanjose Mckeon Jr., MD Physical Exam HEENT: Normocephalic; atraumatic (+) icterus CHEST - Even/unlabored- on NC CARDIAC: RRR ABDOMEN: Distended, soft, bowel sounds active, nontender. Biliary drain with good drainage. SKIN: Normal; no rash; no jaundice. [employer]: Alert and oriented (Annika Tenorio) Assessment and Plan Assessment: (1) Sepsis ICD Codes: A41.9 - Sepsis, unspecified organism Status: Acute Plan Assessment: - Choledocholithiasis with elevated LFTs, trending down CT abdomen WO IV contrast (11/01) --> Gallstones, appears to be areas of increased density within the common bile duct concerning for choledocholithiasis. S/P IR for percutaneous cholecystostomy drain on 11/01 - Culture with heavy growth of gram positive and gram negative enteric terrell, no further work up Pt on Unasyn - Elevated LFTs- likely secondary to obstruction from above but liver work up pending Iron-145 TIBC-214 %sat-67.7 Ferritin-248 AFP-6.9 Hepatitis panel negative [place], AMA, ASMA negative. AAT-215 Ceruloplasmin-24 - Anemia, normocytic- with Hemoccult positive stools- no obvious GIB - Cold left leg- Heparin gtt (11/08) Pt now extubated, alert and oriented, tolerating PO. Denies nausea, vomiting, abdominal pain. Discussed plan for ERCP this week. Will need clearance to DC Heparin gtt past midnight for procedure. Pt had multiple BMs yesterday, Hemoccult stool ordered per [facility], has had no BM over night or today per RN. H/H stable (11/10) Pt remains on 6 L O2 via NC. Drop in hgb noted, no BMs documented since 11/08. (11/11) Pt on 5 L O2 via NC. No repeat labs from today. Denies BM in a few days. Plan ERCP when stable- this week- still on 5 L O2 Monitor output from cholecystostomy drain Monitor LFTs Antibiotics per ID Monitor H/H Notify GI if any obvious GIB Of note, on Heparin gtt Further recommendations based on clinical course Pt has been seen and examined by myself and Dr. Coats and this note is written on his behalf (Annika Tenorio) Physician Comments Doing better but still not fit for ERCP, will follow up with you periodically and schedule accordingly. (James Coats MD) Problem Qualifiers (1) Sepsis: Qualified Codes: A41.9 - Sepsis, unspecified organism Annika Tenorio Nov 11, 2017 10:03 James Coats MD Nov 11, 2017 15:56
[2017-11-11] MEDS: ACETAMINOPHEN/HYDROcodone 325 MG/7.5 MG TAB PO PRN ×3 (10:08→20:49)
[2017-11-11] MEDS: ASPIRIN 81 MG CHEW TAB CHEW SCH (10:10)
[2017-11-11] MEDS: guaiFENesin E.R. 600 MG TAB PO SCH ×2 (10:10→20:26)
[2017-11-11] MEDS: DILTIAZEM-CD 240 MG CAP ER PO SCH (10:10)
[2017-11-11] MEDS: FUROSEMIDE 40 MG/4 ML VIAL IV PUSH SCH (10:11)
[2017-11-11] MEDS: SODIUM CHLORIDE 0.9% FLUSH 10 ML FLUSH IV FLUSH SCH ×2 (10:11→20:26)
[2017-11-11] MEDS: FAMOTIDINE 20 MG/2 ML VIAL IV PUSH SCH (10:11)
--- NOTE | 2017-11-11 10:52 | HHI.PR ---
Subjective Remarks 67-year-old male presents to the emergency department via EMS for evaluation of shortness of breath and pain and numbness to the left leg. Patient believes that he is shortness of breath is related to the pain in his leg. He cannot feel his leg from his groin down. He denies any history of the same. He does report history of COPD. He denies any known fevers or chills. He denies chest pain. Patient received 1 L normal saline bolus via EMS. Patient denies any history of bleeding or blood clots. No recent surgery or travel. No hemoptysis. No history of DVT/PE. He denies leg edema. Patient states the pain is 10/10 to the left leg. No exacerbating or alleviating factors. Moderate severity. 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 The right inflow is heavily diseased as well. The patient was evaluated by vascular surgeon manager combination and was immediately started on heparin drip. SUBJ 10/29: Remains critically ill, encephalopathy. 4 out of 4 bottles positive for GNR. I will change Rocephin to Zosyn renally dosed to cover for Pseudomonas also. Continue azithromycin. Creatinine still elevated but slightly improved. WBC count slightly increased 17.2 now with 24% bands. Source of GNR sepsis could be either UTI or pneumonia. Will consult ID as well. Remains on IV heparin for acute left limb ischemia 10/30: platelets falling >50% again today. Cr still rising, but could be ATN/ contrast nephropathy. blood cultures growing e. coli by PCR, full speciation to follow. urine culture pending. discussed case with Dr. Lopez, will stop heparin , start argatroban and send HIT/CHARLEEN. denies complaints for me, but does have objective tenderness on palpation, RUQ. 10/31: Emergently intubated today a.m. by Dr. Puckett for worsening mental status, encephalopathy and worsening respiratory failure. Prior to intubation Dr. Puckett ' exam revealed right upper quadrant tenderness. Ultrasound of the gallbladder yesterday showed gallstones. Overnight Argatroban was supratherapeutic and was held, platelet count also dropped to 30,000, HIT screen is pending. Postintubation bilateral pupils are reactive but unequal. Will repeat CT of the head, CT abdomen pelvis. BUN 49/Creat 2.7, leukocytosis persisting 11/01: no improvements. ct abd/pelvis with evidence of possible choledocholithiasis. perc doug tube planned for this AM. on esmolol infusion for afib RVR. fio2 increased to 70%. 11/02: Sodium bicarbonate infusion continued per nephrology in the setting of rhabdomyolysis serial creatinine kinase pending. Cholecystostomy drain placement 100 cc overnight. Continued thrombocytopenia, CBC, serotonin release assay pending. Plan for reinitiation of heparin awaiting GI consultation for possible invasive procedures prior to restarting heparin. Patient sinus rhythm with occasional PAC's. 11/03: No acute events overnight. Sodium bicarbonate infusion discontinued this a.m. had any improved this a.m.. Chest x-ray showed worsening consolidation, FiO2 requirements were increased to 65% during the night. CPAP trials on hold currently. Biliary drainage from cholecystostomy tube revealing gram-negative rods. The patient continues on antibiotics. Bilateral dorsalis pedis pulses monophasic signals by Doppler. Heparin infusion reinitiated. 11/04: Sodium bicarbonate infusion discontinued at 7 AM yesterday. Chest x-ray worsening consolidation versus pleural effusions. FiO2 slightly decreased to 60 %, ABG improving. Pending quantification via ultrasound of pleural fluid in am. Lasix 40mg x1 additional dose provided today . PPN discontinued discussed with Dr. Colon tube feeds initiated at [facility]. Dietary consult ordered. 11/05: Afebrile. Patient tolerating tube feeds advanced to goal rate of 55 cc/ hr. chest x-ray with slight improvement FiO2 decreased to 55% ABG pending. Initiation of CPAP trial to be attempted today. 11/06: Late entry note. Patient seen at 628am. Patient was started on CPAP and continues on CPAP greater than 10 hours. Patient following commands, currently on Precedex infusion. 11/07: Patient remained on CPAP trials for approximately 12 hours yesterday and discontinued because of agitation. CPAP trials reinitiated this a.m. Patient complaint of sore throat Lortab ordered. Patient continues on Precedex for ventilator weaning process. Chest x-ray still shows pulmonary edema, additional dose Lasix 401 dose given this a.m.. When infusion continued, monophasic Doppler signals bilateral dorsalis pedal pulses noted. 11/08: Afebrile . Patient successfully extubated yesterday. Remains on O2 at 4 L nasal cannula O2 saturation 94-95%. Patient continues on heparin infusion, she was noted to have 9 BMs last evening plan for serial H&H's concern for possible stool with occult blood. Repeat stool for occult blood. Plan for possible bedside thoracentesis ,if respiratory requirements increase, currently on O2 4 L via nasal cannula in no apparent distress. 6-2 transferred to our service from ICU TEAM 67-year-old female who is lying in bed and having moderately labored breathing with saturations at 90% while on 6 L of oxygen nasal cannula. He states that he is feeling better than yesterday and that he is improving each day. He denies any pain, denies fevers. 6-3 STILL REMAINS ON 6L BY NC APPEARS UNCOMFORTABLE STILL ON OXYGEN A.m. labs PT and OT to eval and treat Keep in ICU due to still being on 6LITERS 6-4 still on oxygen by NC HAS PAIN IN RIGHT ABDOMINAL PAIN DW RN AND PT INCREASE ACTIVITY RECHECK LABS MAY NEED TRANFUSION AM LABS Objective Vitals Vital Signs Date Time Temp Pulse Resp B/P (MAP) Pulse Ox O2 Delivery O2 Flow Rate FiO2 11/11/17 08:13 97 Nasal Cannula 4.00 11/11/17 06:00 73 11/11/17 04:00 79 11/11/17 04:00 97.6 79 20 103/57 (72) 94 11/11/17 02:00 58 11/11/17 00:00 98.1 61 12 105/59 (74) 95 11/11/17 00:00 61 11/10/17 22:00 60 11/10/17 20:00 69 11/10/17 20:00 92 Nasal Cannula 6.00 11/10/17 20:00 97.9 69 18 109/62 (78) 95 11/10/17 18:00 74 11/10/17 16:04 20 11/10/17 16:00 98.2 74 18 114/58 (76) 94 11/10/17 16:00 74 11/10/17 14:00 70 11/10/17 12:00 97.7 81 24 115/77 (90) 94 11/10/17 12:00 81 I/O 11/10/17 11/10/17 11/10/17 11/11/17 11/11/17 11/11/17 07:00 15:00 23:00 07:00 15:00 23:00 Intake Total 830 ml 100 ml 1160 ml 710 ml Output Total 820 ml 1120 ml 930 ml Balance 10 ml 100 ml 40 ml -220 ml Intake Oral 480 ml 960 ml 360 ml IV Total 350 ml 100 ml 200 ml 350 ml Output Urine Total 750 ml 1100 ml 900 ml Drainage Total 70 ml 20 ml 30 ml # Bowel Movements 0 0 Result Diagram: 11/10/17 0313 11/10/17 0313 Other Results Laboratory Tests Test 11/08/17 11:21 11/08/17 15:41 11/08/17 20:25 11/09/17 03:03 Hemoglobin 10.0 GM/DL 9.4 GM/DL 9.1 GM/DL 9.1 GM/DL Hematocrit 29.8 % 28.1 % 27.2 % 26.7 % White Blood Count 11.2 TH/MM3 Red Blood Count 2.87 MIL/MM3 Mean Corpuscular Volume 93.0 FL Mean Corpuscular Hemoglobin 31.6 PG Mean Corpuscular Hemoglobin Concent 34.0 % Red Cell Distribution Width 13.9 % Platelet Count 196 TH/MM3 Mean Platelet Volume 10.7 FL Neutrophils (%) (Auto) 91.7 % Lymphocytes (%) (Auto) 4.3 % Monocytes (%) (Auto) 3.9 % Eosinophils (%) (Auto) 0.0 % Basophils (%) (Auto) 0.1 % Neutrophils # (Auto) 10.2 TH/MM3 Lymphocytes # (Auto) 0.5 TH/MM3 Monocytes # (Auto) 0.4 TH/MM3 Eosinophils # (Auto) 0.0 TH/MM3 Basophils # (Auto) 0.0 TH/MM3 CBC Comment DIFF FINAL Differential Comment Activated Partial Thromboplast Time 69.9 SEC Blood Urea Nitrogen 51 MG/DL Creatinine 1.36 MG/DL Random Glucose 99 MG/DL Total Protein 5.1 GM/DL Albumin 1.9 GM/DL Calcium Level 7.2 MG/DL Phosphorus Level 3.9 MG/DL Magnesium Level 2.5 MG/DL Alkaline Phosphatase 59 U/L Aspartate Amino Transf (AST/SGOT) 64 U/L Alanine Aminotransferase (ALT/SGPT) 99 U/L Total Bilirubin 4.6 MG/DL Sodium Level 147 MEQ/L Potassium Level 3.5 MEQ/L Chloride Level 111 MEQ/L Carbon Dioxide Level 25.0 MEQ/L Anion Gap 11 MEQ/L Estimat Glomerular Filtration Rate 52 ML/MIN Protein Corrected Calcium 8.3 MG/DL Test 11/09/17 09:14 11/09/17 10:52 11/09/17 17:59 11/09/17 20:57 Hemoglobin 9.4 GM/DL 8.3 GM/DL 12.5 GM/DL Hematocrit 28.1 % 24.6 % 39.7 % Activated Partial Thromboplast Time 77.6 SEC 62.6 SEC Test 11/09/17 23:30 11/10/17 03:13 11/10/17 06:52 11/10/17 13:00 Activated Partial Thromboplast Time 50.9 SEC 65.8 SEC Hemoglobin 7.5 GM/DL Hematocrit 22.1 % Blood Urea Nitrogen 59 MG/DL Creatinine 1.47 MG/DL Random Glucose 134 MG/DL Calcium Level 7.6 MG/DL Sodium Level 147 MEQ/L Potassium Level 3.4 MEQ/L Chloride Level 110 MEQ/L Carbon Dioxide Level 25.1 MEQ/L Anion Gap 12 MEQ/L Estimat Glomerular Filtration Rate 48 ML/MIN Phosphorus Level 4.3 MG/DL Test 11/10/17 14:30 11/10/17 20:28 11/11/17 08:19 Activated Partial Thromboplast Time 53.9 SEC 51.2 SEC 32.4 SEC Imaging Last Impressions Chest X-Ray 11/09/17 0600 Signed Impressions: CONCLUSION: Bibasilar areas of consolidation and suspected effusions being worse on the lef t. Chest Ultrasound 11/07/17 0000 Signed Impressions: CONCLUSION: 1. Left-sided pleural effusion. Percutaneous Cholangiogram 11/01/17 0000 Signed Impressions: CONCLUSION: 1. Uncomplicated percutaneous cholecystostomy as above. Abdomen/Pelvis CT 11/01/17 0000 Signed Impressions: CONCLUSION: 1. Gallstones. There do appear to be areas of increased density within the com mon bile duct concerning for choledocholithiasis. 2. 4 mm nonobstructing left renal stone. 3. Sigmoid colon diverticula. 4. Bibasilar areas of consolidation or atelectasis being worse on the left wit h mild bilateral pleural effusions. Renal Ultrasound 10/31/17 0000 Signed Impressions: CONCLUSION: 1. No hydronephrosis. 2. Increased cortical echogenicity consistent with medical renal disease. Head Magnetic Resonance Angiography 10/31/17 Signed Impressions: CONCLUSION: 1. Unremarkable MRA of the brain. Head CT 10/31/17 Signed Impressions: CONCLUSION: 1. Negative CT Head non contrast. 2. No evidence of acute infarct, hemorrhage, mass or edema. Brain MRI 10/31/17 Signed Impressions: CONCLUSION: 1. Senescent changes with minimal periventricular ischemic white matter demyel ination. 2. No acute abnormality. Specifically, no acute infarction, mass or hemorrhage . Gall Bladder Ultrasound 10/30/17 Signed Impressions: CONCLUSION: 1. Fatty infiltration of the liver. 2. Multiple stones in the gallbladder. No biliary tract obstruction. Extremity Arterial Study 10/28/17 Signed Impressions: CONCLUSION: 1. Abnormal ABIs, left greater than right. The left DAVID is significantly dimin ished at 0.14. Aorta w/Runoff CTA 10/28/17 Signed Impressions: Service Date/Time: Saturday, October 28, 2017 21:50 - CONCLUSION: 1. Acute occlusion of the left inflow with concern for short segment occlusion involving the distal right inflow. This raises concern for an embolic event. 2. Right lower extremity shows scattered disease throughout the common femoral artery, SFA and [id number] popliteal artery with three-vessel runoff to the foot. 3. Left lower extremity with reconstitution of the common femoral artery with diseased out flow and two vessel runoff to the foot as detailed above. 4. 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 5. Hepatic steatosis. 6. Cholelithiasis. Juanjose Mckeon Jr., MD Objective Remarks GENERAL: Awake and alert and oriented 2-3 talkative and cooperative appears uncomfortable still SKIN: Warm and dry. HEAD: Atraumatic. Normocephalic. EYES: Pupils equal and round. No scleral icterus. No injection or drainage. ENT: No nasal bleeding or discharge. Mucous membranes pink and moist. NECK: Trachea midline. No JVD. CARDIOVASCULAR: IRRegular rate and rhythm. S1-S2 no S3 or S4 RESPIRATORY: No accessory muscle use. Coarse breath sounds bilaterally breath sounds equal bilaterally. GASTROINTESTINAL: Abdomen soft, non-tender, nondistended. Hepatic and splenic margins not palpable. MUSCULOSKELETAL: Extremities without clubbing, cyanosis, +1-2 lower extremity edema bilaterally-- no obvious deformities. NEUROLOGICAL: Awake and alert. No obvious cranial nerve deficits. Motor grossly within normal limits. 4 out of 5 muscle strength in the arms and legs. Normal speech. PSYCHIATRIC: INAppropriate mood and affect; insight and judgment ABnormal. Medications and IVs Current Medications Morphine Sulfate (Morphine Inj) 4 mg ONCE ONCE IV PUSH Last administered on 21:00; Start 10/28/17 at 20:15; Stop 10/28/17 at 20:16; Status DC Metoclopramide HCl (Reglan Inj) 10 mg ONCE ONCE IV PUSH Last administered on at 21:00; Start 10/28/17 at 20:15; Stop 10/28/17 at 20:16; Status DC Heparin Sodium (Porcine) (Heparin Inj) 7,000 units ONCE ONCE IV PUSH Last administered on 10/28/17at 21:39; Start 10/28/17 at 20:30; Stop 10/28/17 at 20:31 ; Status DC Heparin Sodium/ Dextrose 250 ml @ 15 mls/hr TITRATE PRN IV Coagulation Management Last administered on 10/28/17at 21:38; Start 10/28/17 at 20:30; Stop 10/28/17 at 22:21; Status DC Sodium Chloride 1,000 ml @ 999 mls/hr BOLUS ONCE IV Last administered on 10/28at 21:30; Start 10/28/17 at 21:30; Stop 10/28/17 at 22:30; Status DC Azithromycin 500 mg/Sodium Chloride 250 ml @ 250 mls/hr ONCE ONCE IV Last administered on 10/28/17at 22:14; Start 10/28/17 at 21:45; Stop 10/28/17 at 22:44 ; Status DC Ceftriaxone Sodium 1000 mg/ Sodium Chloride 100 ml @ 200 mls/hr ONCE ONCE IV Last administered on 10/28/17at 22:13; Start 10/28/17 at 21:45; Stop 10/28/17 at 22:14; Status DC Sodium Chloride 1,000 ml @ 999 mls/hr BOLUS ONCE IV Last administered on 10/28at 21:45; Start 10/28/17 at 21:45; Stop 10/28/17 at 22:45; Status DC Sodium Chloride 1,000 ml @ 124 mls/hr Q8H4M IV Last administered on 10/31/17at 16:27; Start 10/28/17 at 23:00; Stop 10/31/17 at 16:31; Status DC Sodium Chloride (NS Flush) 2 ml UNSCH PRN IV FLUSH FLUSH AFTER USING IV ACCESS ; Start 10/28/17 at 22:15 Sodium Chloride (NS Flush) 2 ml BID IV FLUSH Last administered on 11/11/17at 10: 11; Start 10/29/17 at 09:00 Acetaminophen (Tylenol) 650 mg Q6H PRN PO PAIN 1-5 AND/OR FEVER >101F; Start at 22:15 Hydromorphone HCl (Dilaudid Pf Inj) 1 mg Q4H PRN IV PAIN SCALE 6 TO 10 Last administered on 11/07/17at 05:15; Start 10/28/17 at 22:30 Famotidine (Pepcid Inj) 10 mg Q12HR IV PUSH Last administered on 11/06/17at 08: 07; Start 10/29/17 at 09:00; Stop 11/06/17 at 14:35; Status DC Ondansetron HCl (Zofran Inj) 4 mg Q6H PRN IV PUSH NAUSEA OR VOMITING; Start at 22:15 Temazepam (Restoril) 15 mg HS PRN PO INSOMNIA; Start 10/28/17 at 22:15; Status Future Hold Albuterol/ Ipratropium (Duoneb Neb) 1 ampule Q2HR NEB PRN INH WHEEZING Last administered on 11/10/17at 19:58; Start 10/28/17 at 22:15 Heparin Sodium (Porcine) (Heparin Inj) 5,000 units Q8HR SQ ; Start 10/28/17 at 22:30; Stop 10/28/17 at 22:30; Status DC Miscellaneous Information ([facility]) 1 [id number] Last administered on 10/28/17at 22:15; Start 10/28/17 at 22:15 Chlorhexidine Gluconate (Chlorhexidine 2% Cloth) Taper DAILY@04 TOP Last administered on 11/11/17at 04:00; Start 10/29/17 at 04:00; Stop 10/25/18 at 03:59 Chlorhexidine Gluconate (Chlorhexidine 2% Cloth) 3 pack UNSCH PRN TOP HYGIENIC CARE; Start 10/28/17 at 22:15 Senna/Docusate Sodium (Elvira-Colace) 1 tab BID PO Last administered on at 08:21; Start 10/29/17 at 09:00; Status Future Hold Magnesium Hydroxide (Milk Of Magnesia Liq) 30 ml Q12H PRN PO Mild constipation ; Start 10/28/17 at 22:15 Sennosides (Senokot) 17.2 mg Q12H PRN PO Moderate constipation; Start 10/28/17 at 22:15 Bisacodyl (Dulcolax Supp) 10 mg DAILY PRN RECTAL SEVERE CONSITIPATION; Start at 22:15 Lactulose (Lactulose Liq) 30 ml DAILY PRN PO SEVERE CONSITIPATION; Start at 22:15 Iodixanol (VISIPAQUE 320 INJ (Rad CT)) 100 ml STK-MED ONCE IVCONTRAST Last administered on 10/28/17at 22:10; Start 10/28/17 at 22:10; Stop 10/28/17 at 22:11 ; Status DC Methylprednisolone Sodium Succinate (SoluMEDROL INJ) 40 mg Q6HR IV PUSH Last administered on 11/11/17at 05:17; Start 10/29/17 at 00:00 Albuterol/ Ipratropium (Duoneb Neb) 1 ampule Q4HR NEB NEB Last administered on 11/01/17at 07:37; Start 10/29/17 at 00:00; Stop 11/01/17 at 09:30; Status DC Heparin Sodium/ Dextrose 250 ml @ 15 mls/hr TITRATE PRN IV Coagulation Management Last administered on 10/30/17at 05:22; Start 10/28/17 at 22:30; Stop 10/30/17 at 10:02; Status DC Azithromycin 500 mg/Sodium Chloride 250 ml @ 250 mls/hr Q24H IV Last administered on 10/31/17at 20:50; Start 10/29/17 at 22:00; Stop 11/01/17 at 09:30 ; Status DC Ceftriaxone Sodium 1000 mg/ Sodium Chloride 100 ml @ 200 mls/hr Q12H IV Last administered on 10/29/17at 08:39; Start 10/29/17 at 09:00; Stop 10/29/17 at 11:27 ; Status DC Diltiazem HCl (Cardizem Cd) 240 mg DAILY PO Last administered on 10/30/17at 09: 02; Start 10/29/17 at 09:00; Stop 11/08/17 at 09:27; Status DC Sodium Chloride 1,000 ml @ 999 mls/hr BOLUS ONCE IV Last administered on 10/29at 01:45; Start 10/29/17 at 01:45; Stop 10/29/17 at 02:45; Status DC Sodium Chloride 1,000 ml @ 999 mls/hr BOLUS ONCE IV Last administered on 10/29at 02:35; Start 10/29/17 at 01:45; Stop 10/29/17 at 02:45; Status DC Piperacillin Sod/ Tazobactam Sod 50 ml @ 100 mls/hr Q6H IV Last administered on 10/31/17at 12:54; Start 10/29/17 at 11:30; Stop 10/31/17 at 13:55; Status DC Aspirin (Aspirin Chew) 81 mg DAILY CHEW Last administered on 11/11/17at 10:10; Start 10/29/17 at 11:45; Status Future hold Miscellaneous Medication ([facility]) Discontinue all forms of heparin... ONCE ONCE OTHER Last administered on 10/30/17at 10:15; Start at 10:15; Stop 10/30/17 at 10:18; Status DC Argatroban 250 mg/ Sodium Chloride 252.5 ml @ 2.69 mls/hr TITRATE PRN IV aPTT < 50 Last administered on 10/30/17at 13:05; Start 10/30/17 at 10:15; Stop at 14:41; Status DC Esmolol HCl/ Sodium Chloride 250 ml @ 26.7 mls/hr TITRATE PRN IV Blood Pressure Management Last administered on 11/02/17at 13:42; Start 10/31/17 at 01: 45; Stop 11/03/17 at 07:05; Status DC Esmolol HCl (Brevibloc Bolus Inj) 45 mg BOLUS PRN IV PUSH Rebolus Last administered on 10/31/17at 02:11; Start 10/31/17 at 01:45; Stop 11/03/17 at 07:05 ; Status DC Phenylephrine HCl 40 mg/Dextrose 500 ml @ 30 mls/hr TITRATE PRN IV Blood pressure management Last administered on 10/31/17at 06:47; Start 10/31/17 at 06: 15; Stop 11/03/17 at 07:05; Status DC Terbutaline Sulfate (Brethine Inj) 1 mg UNSCH PRN SQ For Extravasation; Start 10/31/17 at 06:15 Etomidate (Amidate Inj) 20 mg ONCE ONCE IV PUSH Last administered on at 06:15; Start 10/31/17 at 06:15; Stop 10/31/17 at 06:16; Status DC Rocuronium Belpre (Zemuron Inj) 50 mg BOLUS ONCE IV Last administered on 10/31at 06:15; Start 10/31/17 at 06:15; Stop 10/31/17 at 06:16; Status DC Etomidate (Amidate Inj) 40 mg STK-MED ONCE .ROUTE ; Start 10/31/17 at 06:14; Stop 10/31/17 at 06:15; Status DC Phenylephrine HCl (Neosynephrine Inj) 10 mg STK-MED ONCE .ROUTE ; Start at 06:30; Stop 10/31/17 at 06:31; Status DC Propofol 50 ml @ As Directed STK-MED ONCE .ROUTE Last administered on at 06:44; Start 10/31/17 at 06:44; Stop 10/31/17 at 06:45; Status DC Propofol 100 ml @ 2.73 mls/hr TITRATE PRN IV SEDATION Last administered on at 04:32; Start 10/31/17 at 07:00; Stop 11/08/17 at 08:50; Status DC Sodium Chloride 1,000 ml @ 999 mls/hr BOLUS ONCE IV Last administered on 10/31at 07:30; Start 10/31/17 at 07:15; Stop 10/31/17 at 08:15; Status DC Chlorhexidine Gluconate (Peridex 0.12% Liq) 15 ml BID@08,20 MT Last administered on 11/08/17at 20:00; Start 10/31/17 at 08:00 Sodium Bicarbonate (Sodium Bicarbonate 8.4% Inj) 50 meq ONCE ONCE IV PUSH Last administered on 10/31/17at 08:58; Start 10/31/17 at 07:30; Stop 10/31/17 at 07:46; Status DC Ampicillin Sodium/ Sulbactam Sodium 1500 mg/Sodium Chloride 100 ml @ 200 mls/ hr Q6H IV Last administered on 11/01/17at 03:30; Start 10/31/17 at 15:00; Stop 11/01/17 at 07:46; Status DC Diatrizoate Meglum/ Diatrizoate Sod (Md Izquierdo Liq) 18 ml ONCE ONCE PO Last administered on 10/31/17at 21:13; Start 10/31/17 at 15:15; Stop 10/31/17 at 15:16; Status DC Sodium Bicarbonate 150 meq/Dextrose 1,150 ml @ 83 mls/hr [id number] IV Last administered on 11/02/17at 19:33; Start 10/31/17 at 17:00; Stop 11/03/17 at 07:00 ; Status DC Ampicillin Sodium/ Sulbactam Sodium 1500 mg/Sodium Chloride 100 ml @ 200 mls/ hr Q12H IV Last administered on 11/02/17at 13:48; Start 11/01/17 at 15:00; Stop 11/02/17 at 16:27; Status DC Albuterol/ Ipratropium (Duoneb Neb) 1 ampule Q4HR NEB NEB Last administered on 11/05/17at 11:49; Start 11/01/17 at 12:00; Stop 11/05/17 at 11:59; Status DC Calcium Gluconate 2 gm/Dextrose 120 ml @ 120 mls/hr ONCE ONCE IV Last administered on 11/02/17at 11:36; Start 11/02/17 at 12:00; Stop 11/02/17 at 12:59 ; Status DC Hydralazine HCl (Apresoline Inj) 20 mg Q4H PRN IV PUSH SBP>160, DBP>90; Start 11/02/17 at 14:00 Metoprolol Tartrate (Lopressor) 25 mg Q12HR PO Last administered on 11/02/17at 19:34; Start 11/02/17 at 14:00; Stop 11/03/17 at 07:05; Status DC Labetalol HCl (Trandate Inj) 10 mg ONCE ONCE IV PUSH Last administered on 11/02at 15:12; Start 11/02/17 at 15:15; Stop 11/02/17 at 15:16; Status DC Ampicillin Sodium/ Sulbactam Sodium 1500 mg/Sodium Chloride 100 ml @ 200 mls/ hr Q8H IV Last administered on 11/03/17at 06:23; Start 11/02/17 at 23:00; Stop 11/03/17 at 13:47; Status DC Clonidine (Catapres) 0.1 mg NOW ONCE PO Last administered on 11/02/17at 19:35; Start 11/02/17 at 17:00; Stop 11/02/17 at 17:01; Status DC Hydralazine HCl (Apresoline) 10 mg Q8HR PO Last administered on 11/03/17at 04:43 ; Start 11/02/17 at 18:00; Stop 11/03/17 at 07:05; Status DC Clonidine (Catapres) 0.1 mg Q6H PRN PO SBP>160, DBP>90 Last administered on at 02:35; Start 11/02/17 at 23:45 Nicardipine HCl 25 mg/Sodium Chloride 260 ml @ 52 mls/hr TITRATE PRN IV Blood pressure management Last administered on 11/03/17 01:19; Start 11/03/17 at 00: 30; Stop 11/04/17 at 13:52; Status DC Heparin Sodium/ Dextrose 250 ml @ 12 mls/hr TITRATE PRN IV Coagulation Management Last administered on 11/11/17 05:14; Start 11/03/17 at 07:00 Hydralazine HCl (Apresoline) 25 mg Q8HR PO Last administered on 11/11/17 05:17 ; Start 11/03/17 at 14:00 Metoprolol Tartrate (Lopressor) 50 mg Q12HR PO Last administered on 11/03/17at 20:08; Start 11/03/17 at 09:00; Stop 11/04/17 at 14:26; Status DC Furosemide (Lasix Inj) 40 mg DAILY IV PUSH Last administered on 11/11/17at 10:11 ; Start 11/03/17 at 13:00 Ampicillin Sodium/ Sulbactam Sodium 1500 mg/Sodium Chloride 100 ml @ 200 mls/ hr Q6H IV Last administered on 5/29/18at 11:30; Start 11/03/17 at 19:00; Stop 11/05/17 at 12:04; Status DC Sodium Chloride 5.5 meq/Sodium Acetate 29.5 meq/ Potassium Chloride 20 meq/ Magnesium Chloride 5 meq/ Calcium Chloride 4.5 meq/ Multivitamins 10 ml/Folic Acid 1 mg/Amino Acids/ Dextrose 1,034.7969 ml @ 42 mls/hr Q24H IV Last administered on 11/03/17at 20:10; Start 11/03/17 at 20:00; Stop 11/04/17 at 14:02 ; Status DC Fat Emulsion Intravenous 250 ml @ 10 mls/hr Q24H IV Last administered on at 20:12; Start 11/03/17 at 20:00; Stop 11/04/17 at 14:02; Status DC Acetylcysteine (Mucomyst 20% Neb) 2 ml Q6HR NEB NEB ; Start 11/03/17 at 18:00; Stop 11/05/17 at 07:31; Status DC Furosemide (Lasix Inj) 40 mg ONCE ONCE IV PUSH Last administered on 11/04/17at 15:01; Start 11/04/17 at 14:00; Stop 11/04/17 at 14:01; Status DC Metoprolol Tartrate (Lopressor) 25 mg Q12HR PO ; Start 11/04/17 at 21:00; Stop 11/04/17 at 21:00; Status DC Labetalol HCl (Trandate) 100 mg Q12HR PO Last administered on 11/07/17at 19:41; Start 11/04/17 at 21:00; Status Future Hold Acetylcysteine (Mucomyst 20% Neb) 2 ml Q6HR NEB NEB Last administered on at 03:58; Start 11/05/17 at 10:00; Stop 11/09/17 at 09:59; Status DC Ampicillin Sodium/ Sulbactam Sodium 3000 mg/Sodium Chloride 100 ml @ 200 mls/ hr Q6H IV ; Start 11/05/17 at 13:00; Stop 11/05/17 at 13:00; Status DC Ampicillin Sodium/ Sulbactam Sodium 3 gm/Sodium Chloride 100 ml @ 200 mls/hr Q6H IV Last administered on 11/11/17at 10:10; Start 11/05/17 at 20:00; Stop at 00:00 Dexmedetomidine HCl 200 mcg/ Sodium Chloride 52 ml @ 5.59 mls/hr TITRATE PRN IV SEDATION Last administered on 11/07/17at 05:27; Start 11/06/17 at 10:00; Stop 11/08/17 at 08:50; Status DC Famotidine (Pepcid Inj) 20 mg Q12HR IV PUSH Last administered on 11/11/17at 10:11 ; Start 11/06/17 at 21:00 Furosemide (Lasix Inj) 40 mg ONCE ONCE IV PUSH ; Start 11/07/17 at 08:45; Stop 11/07/17 at 08:46; Status DC Acetaminophen/ Hydrocodone Bitart (Aragon 7.5-325 Mg) 1 tab Q6H PRN PO PAIN SCALE 8 TO 10 Last administered on 11/11/17at 10:08; Start 11/07/17 at 08:00 Diltiazem HCl (Cardizem Cd) 240 mg DAILY PO Last administered on 11/11/17at 10:10 ; Start 11/08/17 at 09:30 Potassium Chloride (KCl) 20 meq ONCE ONCE PO Last administered on 11/10/17at 05: 12; Start 11/10/17 at 05:00; Stop 11/10/17 at 05:01; Status DC Potassium Chloride 100 ml @ 50 mls/hr Q2H PRN IV For Potassium 2.8 - 3.2 mEq/L ; Start 11/10/17 at 11:00 Potassium Chloride 100 ml @ 50 mls/hr Q2H PRN IV For Potassium 2.8 - 3.2 mEq/L ; Start 11/10/17 at 11:00 Potassium Bicarb/ Potassium Chloride (K-Lyte Cl Eff) 50 meq UNSCH PRN PO For Potassium 3.3 - 3.5 mEq/L; Start 11/10/17 at 11:00 Potassium Chloride 100 ml @ 25 mls/hr UNSCH PRN IV For Potassium 3.3 - 3.5 mEq /L; Start 11/10/17 at 11:00 Potassium Chloride 100 ml @ 50 mls/hr Q2H PRN IV For Potassium 3.3 - 3.5 mEq/L ; Start 11/10/17 at 11:00 Magnesium Sulfate 4 gm/Sodium Chloride 100 ml @ 50 mls/hr UNSCH PRN IV For Magnesium 0.9 - 1.1 mg/dL; Start 11/10/17 at 11:00 Magnesium Oxide (Mag-Ox) 800 mg UNSCH PRN PO For Magnesium 1.2 - 1.6 mg/dL; Start 11/10/17 at 11:00 Magnesium Sulfate 2 gm/Sodium Chloride 100 ml @ 50 mls/hr UNSCH PRN IV For Magnesium 1.2 - 1.6 mg/dL; Start 11/10/17 at 11:00 Potassium Phosphate (K-Phos) 2,000 mg Q4H PRN PO For Phosphorus < 2.5 mg/dL; Start 11/10/17 at 11:00 Sodium Phosphate 30 mmol/Sodium Chloride 250 ml @ 42 mls/hr UNSCH PRN IV For Phosphorus < 2.5 mg/dL; Start 11/10/17 at 11:00 Potassium Phosphate (K-Phos) 2,000 mg UNSCH PRN PO/TUBE SEE LABEL COMMENTS; Start 11/10/17 at 11:00 Potassium Phosphate 30 mmol/ Sodium Chloride 260 ml @ 42 mls/hr UNSCH PRN IV SEE LABEL COMMENTS; Start 11/10/17 at 11:00 Guaifenesin (Mucinex Er) 600 mg BID PO Last administered on 11/11/17at 10:10; Start 11/10/17 at 11:00 Budesonide/ Formoterol Fumarate (Symbicort 160-4.5 Mcg Inh) 2 puff Q12HR INH Last administered on 11/10/17at 20:22; Start 11/10/17 at 21:00 A/P Problem List: (1) Pneumonia ICD Code: J18.9 - Pneumonia, unspecified organism Status: Acute (2) Sepsis ICD Code: A41.9 - Sepsis, unspecified organism Status: Acute (3) Ischemia of left lower extremity ICD Code: I99.8 - Other disorder of circulatory system Status: Acute Assessment and Plan LLL Pneumonia with sepsis, respiratory failure Patient was intubated on 10/31, he was extubated on 11/07 He is still somewhat labored with his breathing, slight tachypnea, needing 6 L of oxygen via nasal cannula Watching patient in ICU, may transfer out when respiratory parameters improved Continue with IV Zosyn Continue COPD coverage COPD exacerbation Complicated picture including pneumonia, sepsis, respiratory failure, A. fib, fluid overload Continuing steroids IV, continue duo nebs as needed Oxygenation remaining in low 90s despite 6 L of oxygen via nasal cannula Atrial fibrillation with RVR Patient has periodic irregularity but is overall rate controlled at the present 2D echo showed ejection fraction of 50% Previous x-ray shows left-sided pleural effusion Continue Cardizem Labetalol previously held Follow on telemetry Hypocalcemia Borderline calcium depletion on protein corrected calcium level We will repeat level in the a.m., treat if trend is downward Acute on chronic left limb ischemia Patient reports that he had a stent placed which reestablish his blood flow The leg is currently warm, no evidence of ischemia Acute choledocholithiasis Multiple gallstones present on ultrasound GI recommended no intervention at this time Cholecystostomy tube in place STILL HAS ABDOMINAL PAIN Acute thrombocytopenia Most likely from sepsis with consumption HIT negative, CHARLEEN negative Continue heparin, continue aspirin ANEMIA WILL PROBABLY NEED TRANSFUSION DEPENDING ON HIS LABS TODAY DVT prophylaxis Heparin Discharge planning Patient has not yet breathing comfortably, will keep him on the ICU another day and reevaluate Discharge Planning MONITOR ICU STILL ON 6L BY NC Problem Qualifiers (1) Pneumonia: Qualified Codes: J18.1 - Lobar pneumonia, unspecified organism (2) Sepsis: Qualified Codes: A41.9 - Sepsis, unspecified organism Spencer Pace DO Nov 11, 2017 10:52
[2017-11-11] MEDS ORDERED: ALBUMIN 25% INJ 100 ML IV ONE (12:07)
[2017-11-11] MEDS ORDERED: diphenhydrAMINE HCL 25 MG CAP PO PRN (12:15)
[2017-11-11] MEDS ORDERED: SODIUM CHLOR 0.9% 250 ML INJ 250 ML IV ONE (12:15)
[2017-11-11] MEDS ORDERED: FUROSEMIDE 20 MG/2 ML VIAL IV PUSH ONE (12:15)
[2017-11-11] MEDS ORDERED: ACETAMINOPHEN 325 MG TAB PO PRN (12:15)
[2017-11-11] MEDS: ALBUMIN 25% INJ 50 ML IV SCH ×2 (13:00→20:25)
[2017-11-11 13:25] LABS: AUTOMATED NEUTROPHIL # 13.8 TH/MM3 (1.8-7.7); BASOPHIL % 0.1 % (0.0-2.0); LYMPH % 4.1 % (9.0-44.0); LYMPHOCYTE # 0.6 TH/MM3 (1.0-4.8); MEAN CELL VOLUME 94.8 FL (80.0-100.0); MEAN CORPUSCULAR HEMOGLOBIN 30.5 PG (27.0-34.0); MEAN CORPUSCULAR HGB CONC 32.1 % (32.0-36.0); MEAN PLATELET VOLUME 11.3 FL (7.0-11.0); MONO % 5.3 % (0.0-8.0); MONOCYTE # 0.8 TH/MM3 (0-0.9); NEUT % 90.5 % (16.0-70.0); PLATELET COUNT 151 TH/MM3 (150-450); RED BLOOD COUNT 1.38 MIL/MM3 (4.50-5.90); RED CELL DISTRIBUTION WIDTH 14.3 % (11.6-17.2); WHITE BLOOD COUNT 15.2 TH/MM3 (4.0-11.0)
[2017-11-11 13:27] LABS: HEMATOCRIT 13.1 % (39.0-51.0); HEMOGLOBIN 4.2 GM/DL (13.0-17.0)
[2017-11-11 14:25] LABS: ALKALINE PHOSPHATASE 47 U/L (45-117); ALT (GPT) 96 U/L (12-78); AST (GOT) 56 U/L (15-37); BICARBONATE 16.5 MEQ/L (21.0-32.0); CALCIUM 7.1 MG/DL (8.5-10.1); CALCIUM-PROTEIN CORRECTED 8.7 MG/DL (8.5-10.1); CHLORIDE 108 MEQ/L (98-107); CREATININE 1.86 MG/DL (0.60-1.30); FREE T4 0.97 NG/DL (0.76-1.46); GLOMERULAR FILTRATION RATE 36 ML/MIN (>89); GLUCOSE,RANDOM 180 MG/DL (74-106); MAGNESIUM 2.6 MG/DL (1.5-2.5); PHOSPHORUS 6.3 MG/DL (2.5-4.9); SODIUM (NA) 145 MEQ/L (136-145); TOTAL BILIRUBIN ADULT 3.4 MG/DL (0.2-1.0); TOTAL PROTEIN 4.2 GM/DL (6.4-8.2)
[2017-11-11 14:27] LABS: BLOOD UREA NITROGEN 64 MG/DL (7-18)
[2017-11-11 14:51] LABS: BANDS 1 % (0-6); LYMPHOCYTES 5 % (9-44); METAMYELOCYTES 3 % (0-1); MONOCYTES 1 % (0-8); NEUTROPHIL # MANUAL DIFF 14.3 TH/MM3 (1.8-7.7); POLYS (SEG NEUTROPHILS) 90 % (16-70)
[2017-11-11] MEDS ORDERED: PILL SPLITTER OTHER PRN (16:15)
[2017-11-11] MEDS ORDERED: DIATRIZOATE MEGLUM/DIATRIZOATE SOD 9 ML CUP PO ONE (17:00)
--- NOTE | 2017-11-11 17:00 | HHI.IDPN ---
Subjective Subjective Remarks ID [id number] for Dr Soler Extubated On NC O2 pt seen earlier today around 1200 pm dw RN Pt noted to drop Hb from 12 to 7.5 No clinical bleeding pt is c/o RUQ pain Antibiotics unasyn Allergies: Coded Allergies: No Known Allergies (Unverified , 10/28/17) Objective . Vital Signs Date Time Temp Pulse Resp B/P (MAP) Pulse Ox O2 Delivery O2 Flow Rate FiO2 11/11/17 14:12 98.1 75 14 88/52 11/11/17 08:13 97 Nasal Cannula 4.00 11/11/17 06:00 73 11/11/17 04:00 79 11/11/17 04:00 97.6 79 20 103/57 (72) 94 11/11/17 02:00 58 11/11/17 00:00 98.1 61 12 105/59 (74) 95 11/11/17 00:00 61 11/10/17 22:00 60 11/10/17 20:00 69 11/10/17 20:00 92 Nasal Cannula 6.00 11/10/17 20:00 97.9 69 18 109/62 (78) 95 11/10/17 18:00 74 11/11/17 11/11/17 11/12/17 15:00 23:00 07:00 Intake Total 25 ml Balance 25 ml Blood Product IV Normal Saline Flush 25 ml . Laboratory Tests Test 11/09/17 17:59 11/09/17 20:57 11/10/17 03:13 11/11/17 13:09 Hemoglobin 8.3 GM/DL 12.5 GM/DL 7.5 GM/DL 4.2 GM/DL Hematocrit 24.6 % 39.7 % 22.1 % 13.1 % White Blood Count 15.2 TH/MM3 Red Blood Count 1.38 MIL/MM3 Mean Corpuscular Volume 94.8 FL Mean Corpuscular Hemoglobin 30.5 PG Mean Corpuscular Hemoglobin Concent 32.1 % Red Cell Distribution Width 14.3 % Platelet Count 151 TH/MM3 Mean Platelet Volume 11.3 FL Neutrophils (%) (Auto) 90.5 % Lymphocytes (%) (Auto) 4.1 % Monocytes (%) (Auto) 5.3 % Eosinophils (%) (Auto) 0.0 % Basophils (%) (Auto) 0.1 % Neutrophils # (Auto) 13.8 TH/MM3 Lymphocytes # (Auto) 0.6 TH/MM3 Monocytes # (Auto) 0.8 TH/MM3 Eosinophils # (Auto) 0.0 TH/MM3 Basophils # (Auto) 0.0 TH/MM3 CBC Comment AUTO DIFF Differential Total Cells Counted 100 Neutrophils % (Manual) 90 % Band Neutrophils % 1 % Lymphocytes % 5 % Monocytes % 1 % Neutrophils # (Manual) 14.3 TH/MM3 Metamyelocytes 3 % Differential Comment FINAL DIFF MANUAL Platelet Estimate NORMAL Platelet Morphology Comment NORMAL Basophilic Stippling FAINT Laboratory Tests Test 11/10/17 03:13 11/10/17 13:00 11/11/17 13:08 Blood Urea Nitrogen 59 MG/DL 64 MG/DL Creatinine 1.47 MG/DL 1.86 MG/DL Random Glucose 134 MG/DL 180 MG/DL Calcium Level 7.6 MG/DL 7.1 MG/DL Sodium Level 147 MEQ/L 145 MEQ/L Potassium Level 3.4 MEQ/L 3.8 MEQ/L Chloride Level 110 MEQ/L 108 MEQ/L Carbon Dioxide Level 25.1 MEQ/L 16.5 MEQ/L Anion Gap 12 MEQ/L 21 MEQ/L Estimat Glomerular Filtration Rate 48 ML/MIN 36 ML/MIN Phosphorus Level 4.3 MG/DL 6.3 MG/DL Total Protein 4.2 GM/DL Albumin 2.0 GM/DL Magnesium Level 2.6 MG/DL Alkaline Phosphatase 47 U/L Aspartate Amino Transf (AST/SGOT) 56 U/L Alanine Aminotransferase (ALT/SGPT) 96 U/L Total Bilirubin 3.4 MG/DL Protein Corrected Calcium 8.7 MG/DL Free Thyroxine 0.97 NG/DL Thyroid Stimulating Hormone 3rd Gen 0.625 uIU/ML Imaging Last Impressions Chest X-Ray 11/09/17 0600 Signed Impressions: CONCLUSION: Bibasilar areas of consolidation and suspected effusions being worse on the lef t. Chest Ultrasound 11/07/17 0000 Signed Impressions: CONCLUSION: 1. Left-sided pleural effusion. Percutaneous Cholangiogram 11/01/17 0000 Signed Impressions: CONCLUSION: 1. Uncomplicated percutaneous cholecystostomy as above. Abdomen/Pelvis CT 11/01/17 0000 Signed Impressions: CONCLUSION: 1. Gallstones. There do appear to be areas of increased density within the com mon bile duct concerning for choledocholithiasis. 2. 4 mm nonobstructing left renal stone. 3. Sigmoid colon diverticula. 4. Bibasilar areas of consolidation or atelectasis being worse on the left wit h mild bilateral pleural effusions. Renal Ultrasound 10/31/17 Signed Impressions: CONCLUSION: 1. No hydronephrosis. 2. Increased cortical echogenicity consistent with medical renal disease. Head Magnetic Resonance Angiography 10/31/17 Signed Impressions: CONCLUSION: 1. Unremarkable MRA of the brain. Head CT 10/31/17 Signed Impressions: CONCLUSION: 1. Negative CT Head non contrast. 2. No evidence of acute infarct, hemorrhage, mass or edema. Brain MRI 10/31/17 Signed Impressions: CONCLUSION: 1. Senescent changes with minimal periventricular ischemic white matter demyel ination. 2. No acute abnormality. Specifically, no acute infarction, mass or hemorrhage . Gall Bladder Ultrasound 10/30/17 Signed Impressions: CONCLUSION: 1. Fatty infiltration of the liver. 2. Multiple stones in the gallbladder. No biliary tract obstruction. Extremity Arterial Study 10/28/17 Signed Impressions: CONCLUSION: 1. Abnormal ABIs, left greater than right. The left DAVID is significantly dimin ished at 0.14. Aorta w/Runoff CTA 10/28/17 Signed Impressions: Service Date/Time: Saturday, October 28, 2017 21:50 - CONCLUSION: 1. Acute occlusion of the left inflow with concern for short segment occlusion involving the distal right inflow. This raises concern for an embolic event. 2. Right lower extremity shows scattered disease throughout the common femoral artery, SFA and [id number] popliteal artery with three-vessel runoff to the foot. 3. Left lower extremity with reconstitution of the common femoral artery with diseased out flow and two vessel runoff to the foot as detailed above. 4. 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 5. Hepatic steatosis. 6. Cholelithiasis. Juanjose Mckeon Jr., MD Physical Exam GENERAL: extubated. NAD HEENT: Head atraumatic. No icterus. NECK: Supple without adenopathy. No swelling. LUNGS: Slight rhonchi. Good air movement. HEART: Bradycardic, No audible murmurs. ABDOMEN: Obese, distended, cholecystostomy tube in place with biliary drainage. light brown bile RUQ tenderness EXTREMITIES: No clubbing or cyanosis or edema. Left foot is currently warm. Purple discoloration of 5th toe SKIN: No diffuse rash. NEUROLOGIC: fully awake and alert. PSYCHIATRIC: Calm. Assessment & Plan Remarks IMPRESSION: 1. Severe sepsis due to E. coli very likely secondary to acute cholecystitis. Cholangitis. 2. Bacteriuria with less than 10,000 Enterococcus faecalis. 3. Pneumonia. Bilateral airspace disease on chest x-ray. 4. Leukocytosis secondary to infection. WBC worse today - sterroids mightr cpntribute 5. Acute kidney disease likely resulting from sepsis. Renal function slightly worse today - 6. Acute respiratory failure. ? CHF; resolved Acute severe anemia - GI bleed ? - Hb dropped to 4.2 Worsening renal fnx RECOMMENDATIONS: 1. Continue ampicillin/sulbactam 3 g IV every 6 hours. -complete 14 days 2. Monitor temperature 3. The white blood cell count. 4. Monitor the clinical status. 5. CT A/P if stable to go to radiology dw Bela Phoenix MD Nov 11, 2017 16:59
--- NOTE | 2017-11-11 17:14 | PD.PROCEDR ---
Procedure Note Procedure DATE: 11/11/17 CENTRAL LINE PLACEMENT: Right internal jugular vein. INDICATION: Central venous access CONSENT Informed consent for procedure was obtained from patient's after discussion of risks, benefits, alternatives. Signed consent is on the chart DESCRIPTION OF THE PROCEDURE The patient was placed in supine position, Trendelenburg. The skin was cleansed with Chloraprep x3. Additional barrier precautions included large sterile drape, sterile gloves, sterile gown, face mask, and hat. 1 % lidocaine was used for local anesthesia. Under direct ultrasound guidance and on single attempt, the vein was accessed with an introducer needle. The guide wire was advanced and the tract was dilated. Using Seldinger technique a 7 [place] 20 cm antimicrobial coated triple-lumen catheter was advanced to a depth of 18 centimeters. The guide wire was removed. All ports had good return of dark venous blood and flushed easily with saline. The central line was secured with 2.0 silk because he was diaphoretic and Stat-lock was not adhering. A sterile dressing with antibiotic disc was applied. ESTIMATED BLOOD LOSS: Minimal COMPLICATIONS: No apparent complications. STAT chest x-ray is pending. Niru Puckett MD Nov 11, 2017 17:14
--- NOTE | 2017-11-11 17:49 | RADRPT ---
EXAM DATE: 11/11/2017 5:44 PM EDT AGE/SEX: 67 years / Male INDICATIONS: Central line placement. CLINICAL DATA: This is the patient's subsequent encounter. Patient reports that signs and symptoms h ave been present for 1 day and indicates a pain score of Nonresponsive. MEDICAL/SURGICAL HISTORY: . Chronic obstructive pulmonary disease. Hiatal hernia. . Hernia rep air. COMPARISON: C, CHEST SINGLE AP, 11/09/2017. . FINDINGS: Left neck central line is present in good position with tip descending into the SVC. There is no evid ence of pneumothorax or other complication of placement. Aeration is stable with bibasilar parenchyma l opacities, left worse than right and small left effusion. Cardiac contours are grossly unchanged. CONCLUSION: Satisfactory central line positioning. Electronically signed by: Phi Strong MD 11/11/2017 5:47 PM EDT
--- NOTE | 2017-11-11 17:56 | HHI.PR ---
Subjective Remarks 67 YOWM with COPD,Sepsis, ischemia of leg Developed RF, intubated Extubated On NC mild sob cough, occ sp No Fever Hb dropped to 4.2, no obvious bleed Hypotensive Objective Vital Signs Vital Signs Date Time Temp Pulse Resp B/P (MAP) Pulse Ox O2 Delivery O2 Flow Rate FiO2 11/11/17 14:12 98.1 75 14 88/52 11/11/17 08:13 97 Nasal Cannula 4.00 11/11/17 06:00 73 11/11/17 04:00 79 11/11/17 04:00 97.6 79 20 103/57 (72) 94 11/11/17 02:00 58 11/11/17 00:00 98.1 61 12 105/59 (74) 95 11/11/17 00:00 61 11/10/17 22:00 60 11/10/17 20:00 69 11/10/17 20:00 92 Nasal Cannula 6.00 11/10/17 20:00 97.9 69 18 109/62 (78) 95 11/10/17 18:00 74 I/O 11/10/17 11/10/17 11/10/17 11/11/17 11/11/17 11/11/17 07:00 15:00 23:00 07:00 15:00 23:00 Intake Total 830 ml 100 ml 1160 ml 710 ml 25 ml 25 ml Output Total 820 ml 1120 ml 930 ml Balance 10 ml 100 ml 40 ml -220 ml 25 ml 25 ml Intake Oral 480 ml 960 ml 360 ml IV Total 350 ml 100 ml 200 ml 350 ml Blood Product IV Normal Saline Flush 25 ml 25 ml Output Urine Total 750 ml 1100 ml 900 ml Drainage Total 70 ml 20 ml 30 ml # Bowel Movements 0 0 Result Diagram: 11/11/17 1309 11/11/17 1308 Objective Remarks GENERAL: WBWN WM, mild sob SKIN: Warm and dry. HEAD: Normocephalic. EYES: No scleral icterus. No injection or drainage. NECK: Supple, trachea midline. No JVD or lymphadenopathy. CARDIOVASCULAR: Regular rate and rhythm without murmurs, gallops, or rubs. RESPIRATORY: Breath sounds equal bilaterally. No accessory muscle use. GASTROINTESTINAL: Abdomen soft, non-tender, nondistended. MUSCULOSKELETAL: No cyanosis, or edema. Cold left leg BACK: Nontender without obvious deformity. No CVA tenderness. A/P Assessment and Plan IMPRESSION: 1. Sepsis. 2. Chronic obstructive pulmonary disease, mild exacerbation. 3. Left basilar infiltrate. 4. Urinary tract infection 5. Encephalopathy. 6. Cold left leg. 7. Thrombocytopenia. 8. VDRF--extubated 11/07 9. Severe anemia PLAN: Cont Abx per ID Monitor Plt count Monitor renal functions Supplement 02 Encourage PO XU RN at Reconsult Medical Assistant Secretary Dennis Arevalo MD Nov 11, 2017 17:56
[2017-11-11 17:59] LABS: RETIC # 57.4 MIL/L (20.0-150.0); RETIC % 2.5 % (0.4-3.0)
[2017-11-11 18:13] LABS: INTERNATIONAL NORMALIZED RATIO 1.4 RATIO
[2017-11-11] MEDS ORDERED: PANTOPRAZOLE INJ 80 MG in SODIUM CHLORIDE 0.9% INJ 35 ML IV ONE (18:53)
[2017-11-11] MEDS: LACTATED RINGER'S 1000 ML INJ 1,000 ML IV SCH (20:49)
[2017-11-11] MEDS ORDERED: FAMOTIDINE 20 MG TAB PO SCH ×2 (21:00)
[2017-11-11] MEDS: PANTOPRAZOLE INJ 80 MG in SODIUM CHLORIDE 0.9% INJ 100 ML IV SCH (21:03)
[2017-11-11 21:30] LABS: AUTOMATED NEUTROPHIL # 12.5 TH/MM3 (1.8-7.7); BASOPHIL % 0.1 % (0.0-2.0); HEMOGLOBIN 8.9 GM/DL (13.0-17.0); LYMPH % 6.9 % (9.0-44.0); MEAN CELL VOLUME 86.7 FL (80.0-100.0); MEAN CORPUSCULAR HEMOGLOBIN 29.7 PG (27.0-34.0); MEAN CORPUSCULAR HGB CONC 34.2 % (32.0-36.0); MEAN PLATELET VOLUME 10.8 FL (7.0-11.0); MONO % 5.9 % (0.0-8.0); MONOCYTE # 0.8 TH/MM3 (0-0.9); NEUT % 87.1 % (16.0-70.0); PLATELET COUNT 84 TH/MM3 (150-450); RED BLOOD COUNT 2.99 MIL/MM3 (4.50-5.90); RED CELL DISTRIBUTION WIDTH 15.9 % (11.6-17.2); WHITE BLOOD COUNT 14.3 TH/MM3 (4.0-11.0)
--- NOTE | 2017-11-11 21:56 | HHI.CCPN ---
Subjective Remarks/Hospital Course 67-year-old male presents to the emergency department via EMS for evaluation of shortness of breath and pain and numbness to the left leg. Patient believes that he is shortness of breath is related to the pain in his leg. He cannot feel his leg from his groin down. He denies any history of the same. He does report history of COPD. He denies any known fevers or chills. He denies chest pain. Patient received 1 L normal saline bolus via EMS. Patient denies any history of bleeding or blood clots. No recent surgery or travel. No hemoptysis. No history of DVT/PE. He denies leg edema. Patient states the pain is 10/10 to the left leg. No exacerbating or alleviating factors. Moderate severity. 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 The right inflow is heavily diseased as well. The patient was evaluated by vascular surgeon grants and contracts assistant and was immediately started on heparin drip. SUBJ 10/29: Remains critically ill, encephalopathy. 4 out of 4 bottles positive for GNR. I will change Rocephin to Zosyn renally dosed to cover for Pseudomonas also. Continue azithromycin. Creatinine still elevated but slightly improved. WBC count slightly increased 17.2 now with 24% bands. Source of GNR sepsis could be either UTI or pneumonia. Will consult ID as well. Remains on IV heparin for acute left limb ischemia 10/30: platelets falling >50% again today. Cr still rising, but could be ATN/ contrast nephropathy. blood cultures growing e. coli by PCR, full speciation to follow. urine culture pending. discussed case with Dr. Lopez, will stop heparin , start argatroban and send HIT/CHARLEEN. denies complaints for me, but does have objective tenderness on palpation, RUQ. 10/31: Emergently intubated today a.m. by Dr. Puckett for worsening mental status, encephalopathy and worsening respiratory failure. Prior to intubation Dr. Puckett ' exam revealed right upper quadrant tenderness. Ultrasound of the gallbladder yesterday showed gallstones. Overnight Argatroban was supratherapeutic and was held, platelet count also dropped to 30,000, HIT screen is pending. Postintubation bilateral pupils are reactive but unequal. Will repeat CT of the head, CT abdomen pelvis. BUN 49/Creat 2.7, leukocytosis persisting 11/01: no improvements. ct abd/pelvis with evidence of possible choledocholithiasis. perc doug tube planned for this AM. on esmolol infusion for afib RVR. fio2 increased to 70%. 11/02: Sodium bicarbonate infusion continued per nephrology in the setting of rhabdomyolysis serial creatinine kinase pending. Cholecystostomy drain placement 100 cc overnight. Continued thrombocytopenia, CBC, serotonin release assay pending. Plan for reinitiation of heparin awaiting GI consultation for possible invasive procedures prior to restarting heparin. Patient sinus rhythm with occasional PAC's. 11/03: No acute events overnight. Sodium bicarbonate infusion discontinued this a.m. had any improved this a.m.. Chest x-ray showed worsening consolidation, FiO2 requirements were increased to 65% during the night. CPAP trials on hold currently. Biliary drainage from cholecystostomy tube revealing gram-negative rods. The patient continues on antibiotics. Bilateral dorsalis pedis pulses monophasic signals by Doppler. Heparin infusion reinitiated. 11/04: Sodium bicarbonate infusion discontinued at 7 AM yesterday. Chest x-ray worsening consolidation versus pleural effusions. FiO2 slightly decreased to 60 %, ABG improving. Pending quantification via ultrasound of pleural fluid in am. Lasix 40mg x1 additional dose provided today . PPN discontinued discussed with Dr. Colon tube feeds initiated at [facility]. Dietary consult ordered. 11/05: Afebrile. Patient tolerating tube feeds advanced to goal rate of 55 cc/ hr. chest x-ray with slight improvement FiO2 decreased to 55% ABG pending. Initiation of CPAP trial to be attempted today. 11/06: Late entry note. Patient seen at 628am. Patient was started on CPAP and continues on CPAP greater than 10 hours. Patient following commands, currently on Precedex infusion. 11/07: Patient remained on CPAP trials for approximately 12 hours yesterday and discontinued because of agitation. CPAP trials reinitiated this a.m. Patient complaint of sore throat Lortab ordered. Patient continues on Precedex for ventilator weaning process. Chest x-ray still shows pulmonary edema, additional dose Lasix 401 dose given this a.m.. When infusion continued, monophasic Doppler signals bilateral dorsalis pedal pulses noted. 11/08: Afebrile . Patient successfully extubated yesterday. Remains on O2 at 4 L nasal cannula O2 saturation 94-95%. Patient continues on heparin infusion, she was noted to have 9 BMs last evening plan for serial H&H's concern for possible stool with occult blood. Repeat stool for occult blood. Plan for possible bedside thoracentesis ,if respiratory requirements increase, currently on O2 4 L via nasal cannula in no apparent distress. Subjective: 11/09 Late entry, notified of consult at 17:[address] Johnson, saw patient and immediately placed L IJ CVL because patient had ripped out an IV and had insufficient peripheral IV access given clinical condition. RN states patient had Hgb 7.5 this morning. Trend was unusual with Hb 8.3--> 12.5 (without transfusion)-->7.5 and lab recommended repeat. Repeat was drawn and was 4.2. Meanwhile, while awaiting re-draw patient became hypotensive, MAP down in the 40s, and was given albumin 25 gram IV. Now he has received 1 unit PRBC and BP improved to 120s/60s. Getting 2 additional units of PRBC stat. Nurse states heparin has been off since 12:30. Sending stat coags/fibrinogen. Patient denies nausea or vomiting. He has some right-sided abdominal pain. There is dark brown drainage from cholecystostomy tube. He has not had a bowel movement in 48 hours. No obvious evidence of GI bleeding. CT abdomen and pelvis has been ordered as "urgent", now giving additional PRBC and then will obtain stat. Gastroenterology has been following and I have notified them of the anemia, though this does not appear to be GI source at this time. Objective Vital Signs Date Time Temp Pulse Resp B/P (MAP) Pulse Ox O2 Delivery O2 Flow Rate FiO2 11/11/17 20:34 97.3 78 28 129/69 92 11/11/17 19:25 Nasal Cannula 4.00 11/07/17 12:40 40 Intake and Output 11/11/17 11/11/17 11/11/17 07:59 15:59 23:59 Intake Total 710 ml 25 ml 850 ml Output Total 930 ml Balance -220 ml 25 ml 850 ml Result Diagram: 11/11/17 5678 11/11/17 1308 Imaging Current Medications Medications (Trade) Dose Ordered Sig/Olesya Route Start Time Stop Time Status Last Admin (NS Flush) 2 ml UNSCH PRN IV FLUSH 10/28/17 22:15 (NS Flush) 2 ml BID IV FLUSH 10/29/17 09:00 11/07/17 19:41 (Tylenol) 650 mg Q6H PRN PO 10/28/17 22:15 (Dilaudid Pf Inj) 1 mg Q4H PRN IV 10/28/17 22:30 11/07/17 05:15 (Zofran Inj) 4 mg Q6H PRN IV PUSH 10/28/17 22:15 (Restoril) 15 mg HS PRN PO 10/28/17 22:15 Future Hold (Duoneb Neb) 1 ampule Q2HR NEB PRN INH 10/28/17 22:15 11/08/17 08:15 ([facility] [place] [facility] Information) 1 Q361D XX 10/28/17 22:15 10/28/17 22:15 (Chlorhexidine 2% Cloth) Taper DAILY@04 TOP 10/29/17 04:00 10/25/18 03:59 11/08/17 04:00 (Chlorhexidine 2% Cloth) 3 pack UNSCH PRN TOP 10/28/17 22:15 (Elvira-Colace) 1 tab BID PO 10/29/17 09:00 11/07/17 08:21 (Milk Of Magnesia Liq) 30 ml Q12H PRN PO 10/28/17 22:15 (Senokot) 17.2 mg Q12H PRN PO 10/28/17 22:15 (Dulcolax Supp) 10 mg DAILY PRN RECTAL 10/28/17 22:15 (Lactulose Liq) 30 ml DAILY PRN PO 10/28/17 22:15 (SoluMEDROL INJ) 40 mg Q6HR IV PUSH 10/29/17 00:00 11/08/17 05:11 (Cardizem Cd) 240 mg DAILY PO 10/29/17 09:00 Future Hold 10/30/17 09:02 (Aspirin Chew) 81 mg DAILY CHEW 10/29/17 11:45 Future hold 11/07/17 08:21 (Brethine Inj) 1 mg UNSCH PRN SQ 10/31/17 06:15 (Peridex 0.12% Liq) 15 ml BID@08,20 MT 10/31/17 08:00 11/07/17 08:21 (Apresoline Inj) 20 mg Q4H PRN IV PUSH 11/02/17 14:00 (Catapres) 0.1 mg Q6H PRN PO 11/02/17 23:45 11/04/17 02:35 Heparin Sodium/ Dextrose 250 ml @ 12 mls/hr TITRATE PRN IV 11/03/17 07:00 11/07/17 23:52 (Apresoline) 25 mg Q8HR PO 11/03/17 14:00 11/08/17 05:11 (Lasix Inj) 40 mg DAILY IV PUSH 11/03/17 13:00 11/07/17 08:21 (Trandate) 100 mg Q12HR PO 11/04/17 21:00 11/07/17 19:41 (Mucomyst 20% Neb) 2 ml Q6HR NEB NEB 11/05/17 10:00 11/08/17 08:15 Ampicillin Sodium/ Sulbactam Sodium 3 gm/Sodium Chloride 100 ml @ 200 mls/hr Q6H IV 11/05/17 20:00 11/08/17 01:24 (Pepcid Inj) 20 mg Q12HR IV PUSH 11/06/17 21:00 11/07/17 19:41 ([place] 7.5-325 Mg) 1 tab Q6H PRN PO 11/07/17 08:00 11/07/17 09:06 Last Impressions Chest X-Ray 11/07/17 0600 Signed Impressions: CONCLUSION: No appreciable change. Percutaneous Cholangiogram 11/01/17 0000 Signed Impressions: CONCLUSION: 1. Uncomplicated percutaneous cholecystostomy as above. Abdomen/Pelvis CT 11/01/17 0000 Signed Impressions: CONCLUSION: 1. Gallstones. There do appear to be areas of increased density within the com mon bile duct concerning for choledocholithiasis. 2. 4 mm nonobstructing left renal stone. 3. Sigmoid colon diverticula. 4. Bibasilar areas of consolidation or atelectasis being worse on the left wit h mild bilateral pleural effusions. Renal Ultrasound 10/31/17 0000 Signed Impressions: CONCLUSION: 1. No hydronephrosis. 2. Increased cortical echogenicity consistent with medical renal disease. Head Magnetic Resonance Angiography 10/31/17 0000 Signed Impressions: CONCLUSION: 1. Unremarkable MRA of the brain. Head CT 10/31/17 Signed Impressions: CONCLUSION: 1. Negative CT Head non contrast. 2. No evidence of acute infarct, hemorrhage, mass or edema. Brain MRI 10/31/17 Signed Impressions: CONCLUSION: 1. Senescent changes with minimal periventricular ischemic white matter demyel ination. 2. No acute abnormality. Specifically, no acute infarction, mass or hemorrhage . Gall Bladder Ultrasound 10/30/17 Signed Impressions: CONCLUSION: 1. Fatty infiltration of the liver. 2. Multiple stones in the gallbladder. No biliary tract obstruction. Extremity Arterial Study 10/28/17 Signed Impressions: CONCLUSION: 1. Abnormal ABIs, left greater than right. The left DAVID is significantly dimin ished at 0.14. Aorta w/Runoff CTA 10/28/17 Signed Impressions: Service Date/Time: Saturday, October 28, 2017 21:50 - CONCLUSION: 1. Acute occlusion of the left inflow with concern for short segment occlusion involving the distal right inflow. This raises concern for an embolic event. 2. Right lower extremity shows scattered disease throughout the common femoral artery, SFA and jizty-fxc-aeil popliteal artery with three-vessel runoff to the foot. 3. Left lower extremity with reconstitution of the common femoral artery with diseased out flow and two vessel runoff to the foot as detailed above. 4. 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 5. Hepatic steatosis. 6. Cholelithiasis. Juanjose Mckeon Jr., MD Last Impressions Chest X-Ray 11/03/17 0600 Signed Impressions: CONCLUSION: Worsening parenchymal consolidation and small effusions at each lung base. Percutaneous Cholangiogram 11/01/17 Signed Impressions: CONCLUSION: 1. Uncomplicated percutaneous cholecystostomy as above. Abdomen/Pelvis CT 11/01/17 Signed Impressions: CONCLUSION: 1. Gallstones. There do appear to be areas of increased density within the com mon bile duct concerning for choledocholithiasis. 2. 4 mm nonobstructing left renal stone. 3. Sigmoid colon diverticula. 4. Bibasilar areas of consolidation or atelectasis being worse on the left wit h mild bilateral pleural effusions. Renal Ultrasound 10/31/17 Signed Impressions: CONCLUSION: 1. No hydronephrosis. 2. Increased cortical echogenicity consistent with medical renal disease. Head Magnetic Resonance Angiography 10/31/17 Signed Impressions: CONCLUSION: 1. Unremarkable MRA of the brain. Head CT 10/31/17 Signed Impressions: CONCLUSION: 1. Negative CT Head non contrast. 2. No evidence of acute infarct, hemorrhage, mass or edema. Brain MRI 10/31/17 Signed Impressions: CONCLUSION: 1. Senescent changes with minimal periventricular ischemic white matter demyel ination. 2. No acute abnormality. Specifically, no acute infarction, mass or hemorrhage . Gall Bladder Ultrasound 10/30/17 Signed Impressions: CONCLUSION: 1. Fatty infiltration of the liver. 2. Multiple stones in the gallbladder. No biliary tract obstruction. Extremity Arterial Study 10/28/17 Signed Impressions: CONCLUSION: 1. Abnormal ABIs, left greater than right. The left DAVID is significantly dimin ished at 0.14. Aorta w/Runoff CTA 10/28/17 Signed Impressions: Service Date/Time: Saturday, October 28, 2017 21:50 - CONCLUSION: 1. Acute occlusion of the left inflow with concern for short segment occlusion involving the distal right inflow. This raises concern for an embolic event. 2. Right lower extremity shows scattered disease throughout the common femoral artery, SFA and ycfim-pov-mowb popliteal artery with three-vessel runoff to the foot. 3. Left lower extremity with reconstitution of the common femoral artery with diseased out flow and two vessel runoff to the foot as detailed above. 4. 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 5. Hepatic steatosis. 6. Cholelithiasis. Juanjose Mckeon Jr., MD Last Impressions Percutaneous Cholangiogram 11/01/17 Signed Impressions: CONCLUSION: 1. Uncomplicated percutaneous cholecystostomy as above. Abdomen/Pelvis CT 11/01/17 Signed Impressions: CONCLUSION: 1. Gallstones. There do appear to be areas of increased density within the com mon bile duct concerning for choledocholithiasis. 2. 4 mm nonobstructing left renal stone. 3. Sigmoid colon diverticula. 4. Bibasilar areas of consolidation or atelectasis being worse on the left wit h mild bilateral pleural effusions. Renal Ultrasound 10/31/17 Signed Impressions: CONCLUSION: 1. No hydronephrosis. 2. Increased cortical echogenicity consistent with medical renal disease. Head Magnetic Resonance Angiography 10/31/17 Signed Impressions: CONCLUSION: 1. Unremarkable MRA of the brain. Head CT 10/31/17 Signed Impressions: CONCLUSION: 1. Negative CT Head non contrast. 2. No evidence of acute infarct, hemorrhage, mass or edema. Chest X-Ray 10/31/17 Signed Impressions: CONCLUSION: Satisfactory position of endotracheal and nasogastric tubes. Increasing airspace disease and bilateral effusions. Brain MRI 10/31/17 Signed Impressions: CONCLUSION: 1. Senescent changes with minimal periventricular ischemic white matter demyel ination. 2. No acute abnormality. Specifically, no acute infarction, mass or hemorrhage . Gall Bladder Ultrasound 10/30/17 Signed Impressions: CONCLUSION: 1. Fatty infiltration of the liver. 2. Multiple stones in the gallbladder. No biliary tract obstruction. Extremity Arterial Study 10/28/17 Signed Impressions: CONCLUSION: 1. Abnormal ABIs, left greater than right. The left DAVID is significantly dimin ished at 0.14. Aorta w/Runoff CTA 10/28/17 Signed Impressions: Service Date/Time: Saturday, October 28, 2017 21:50 - CONCLUSION: 1. Acute occlusion of the left inflow with concern for short segment occlusion involving the distal right inflow. This raises concern for an embolic event. 2. Right lower extremity shows scattered disease throughout the common femoral artery, SFA and crbqy-lan-uqkj popliteal artery with three-vessel runoff to the foot. 3. Left lower extremity with reconstitution of the common femoral artery with diseased out flow and two vessel runoff to the foot as detailed above. 4. 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 5. Hepatic steatosis. 6. Cholelithiasis. Juanjose Mckeon Jr., MD Last 24 hours Impressions Chest X-Ray 10/28/172010 Signed Impressions: Service Date/Time: Saturday, October 28, 2017 20:20 - CONCLUSION: Left lower lobe infiltrate. Mild cardiomegaly. Juanjose Mckeon Jr., MD Objective Remarks GENERAL: This is a well-developed well-nourished middle-aged male, laying in bed , confused, conversant. SKIN: Warm and dry. HEAD: Normocephalic. ENT: No scleral icterus. No injection or drainage. Pupils are now equal at 3mm, reactive. Nasal cannula at 4 L nasal cannula. NECK: Supple, trachea midline. No JVD. CARDIOVASCULAR: Regular, rate in the 70s. No murmurs rubs or gallops. RESPIRATORY: Breath sounds equal bilaterally. On nasal cannula. GASTROINTESTINAL: Abdomen soft, mildly distended, tender in right abdomen, bowel sounds hypoactive. Cholecystostomy tube is in place draining dark brown fluid. No flank hematoma. MUSCULOSKELETAL: No cyanosis, 1+ bipedal edema. Bilateral DP with Doppler pulses. Discoloration of left fifth toe NEURO EXAM: Eyes open, makes eye contact. Confused at times "states "I want to go home". Moves all extremities spontaneously and follows commands with all extremities. No apparent focal deficit. A/P Assessment and Plan ASSESSMENT/PLAN: NEURO: Acute metabolic encephalopathy -Neuro checks per ICU protocol -Tylenol 650 mg every 6 hours as needed for temp greater than 101.0 -10/31 CT of the head- negative RESP: COPD exacerbation, resolved Left lower lobe pneumonia ARDS, resolved -Emergently intubated and placed on mechanical ventilation 10/31/2017 -PRVC/AC, DuoNeb scheduled and as needed, ventilator bundle, head of bed elevation to 30 -Steroids IV. Acetylcysteine nebs as needed per pulmonary consultation: Dr. Johnson following - CT mild B/L pleural effusion -Extubated 11/07 -11/07 chest [id number] edema, possible left pleural effusion -11/07 obtain ultrasound chest marking left Continue nasal cannula CVS: Hemorrhagic shock Lactic acidemia Acute on chronic left limb ischemia Paroxysmal atrial fibrillation HTN -CTA showed severe aorto-iliac occlusive disease with left iliac thrombosis -Significant calcifications and peripheral vascular disease -2D echo: EF 50%, no significant valvular lesions. left sided pleural effusion -HIT screen negative. CHARLEEN -negative -11/08 Labetalol 100 mg twice daily (placed on hold) Has received albumin 25 g IV. Transfusions as per below. LR 100 mL/h. Trend lactic acid GI Acute hepatic dysfunction Hyperbilirubinemia Transaminitis Acute Choledocholithiasis -Trend LFTs, gallbladder ultrasound showed multiple gallstones -Repeat CT abdomen/pelvis 10/31: c/w choledocholithiasis - GI consult. 11/02-Dr. [place], no invasive intervention at this time NPO -Cholecystostomy tube placed 11/01 by IR. -Start protonix drip due to unclear source of anemia Acute kidney injury Acute metabolic acidosis -Nephrology following -Sodium bicarbonate infusion discontinued 11/03. -Hydration, Strict I's and O's Hold Lasix for now S ID E COLI bacteremia/severe sepsis, resolved Enterococcus in the urine: possible colonization vs. UTI. Acute Choledocholithiasis Biliary fluid gram-negative rods Cholecystostomy placed 11/01. Continue antibiotics per ID: Unasyn HEME: Acute blood loss anemia acute thrombocytopenia: Resolved -Most likely etiology was sepsis with consumption - HIT negative. CHARLEEN negative Heparin on hold due to severe anemia, nurse states placed on hold at 12: 30 so protamine is not indicated at this time. Check stat coags. Aspirin place on hold. Transfuse 3 units packed red cells stat. Maintained 4 units on hold. PTT is 27. Fibrinogen is 123. INR 1.4. Monitor CBC and coags. May need FFP, cryo, platelets if ongoing transfusion requirement. Obtain Stat CT abd/pelvis to evaluate source. Hemolysis labs also sent but this is less likely DVT GI prophylaxis -Vickey's and SCDs -Heparin infusion on hold due to active bleeding. ACCESS: Peripheral IV access is inadequate at this time with 20-gauge in the forearm. Place emergent left IJ central venous line 11/11 #1 Patient is critically ill with severe anemia and hemorrhagic shock. He is at high risk for further deterioration and . He needs ongoing resuscitation and evaluation for source of bleeding. [facility], Dr. Aden, who assumed care. Discussed with Dr. Johnson. Discussed with Dr. Coats and Dr. Aden. Critical care time 40 minutes exclusive of separately billable procedures Niru Puckett MD Nov 11, 2017 21:56
[2017-11-11 22:25] LABS: BANDS 4 % (0-6); CORRECTED NUCLEATED RBC 2 /100 WBC (0-0); LYMPHOCYTES 4 % (9-44); METAMYELOCYTES 1 % (0-1); MONOCYTES 2 % (0-8); NEUTROPHIL # MANUAL DIFF 13.4 TH/MM3 (1.8-7.7); NUCLEATED RED BLOOD CELL 2 (0-0); POLYS (SEG NEUTROPHILS) 89 % (16-70)
--- NOTE | 2017-11-11 22:45 | RADRPT ---
EXAM DATE: 11/11/2017 10:33 PM EDT AGE/SEX: 67 years / Male INDICATIONS: Abdomen pain. CLINICAL DATA: This is the patient's initial encounter. Patient reports that signs and symptoms have been present for 1 day and indicates a pain score of 5/10. MEDICAL/SURGICAL HISTORY: Chronic obstructive pulmonary disease. None. RADIATION DOSE: 15.39 CTDI (mGy) [place] [facility] [place]AST, 11/01/2017. . TECHNIQUE: Multiple contiguous axial images were obtained through the abdomen. Images were obtained using multiple row detector helical technique. Using dose reduction techniques, radiation dose was ke pt as low as reasonably achievable to obtain optimal diagnostic quality images. FINDINGS: Comparison is November 01. [id number] bilateral pleural effusions persist with some compressive ate lectasis on the left side. Previous basilar lung consolidation is slightly improved. There is a drain present in the right upper quadrant characteristic of cholecystostomy. No fluid mag ection around the gallbladder. There is a large new fluid collection in the right side of the abdomen descending over a length of up to about 21 cm with a diameter up to 10.7 cm in the right abdomen below the liver anterior to the ri ght psoas muscle. This appears to be separate from the psoas muscle. Fluid collection appears to be c omplex, possibly hemorrhage or infection. This would be easily amenable to CT-guided aspiration. There is also some free fluid predominantly in the left paracolic gutter. Pelvis reveals Peña cathet er in the bladder. Sigmoid diverticulosis. Mild anasarca. CONCLUSION: 1. New complex fluid collection in the right-sided the abdomen which appears to be extraperitoneal a nterior to the right psoas muscle and displacing the right colon medially. Fluid collection measures up to 21 cm in length and 10.7 cm in maximal diameter. Differential diagnosis includes hematoma or in fection/abscess. 2. Mild free fluid within the abdomen. 3. Mild anasarca. 4. Cholecystostomy tube in right upper quadrant without fluid directly around the gallbladder. 5. Small to moderate bilateral effusions with slight improvement in basilar lung consolidation since November 01. Electronically signed by: Christopher Kaur MD 11/11/2017 10:43 PM EDT
[2017-11-12] VITALS (15 sets, daily range): BP systolic 117–141; BP diastolic 55–66; PULSE 63–81; RESP 13–22; TEMP 97.6–99; O2SAT 89–95
[2017-11-12] MEDS: ALBUMIN 25% INJ 50 ML IV SCH ×4 (00:17→19:00)
[2017-11-12] MEDS: methylPREDNISolone SOD SUCC 40 MG/1 ML VIAL IV PUSH SCH ×5 (00:17→23:44)
[2017-11-12] MEDS: AMPICILLIN/SULBAC 3 GM/NS 100 ML IV SCH ×8 (02:10→22:19)
[2017-11-12] MEDS: CHLORHEXIDINE GLUCONATE 2 % 1 PACK (2 CLOTHS) TOP SCH (04:00)
[2017-11-12 04:44] LABS: AUTOMATED NEUTROPHIL # 14.1 TH/MM3 (1.8-7.7); BASOPHIL % 0.2 % (0.0-2.0); HEMOGLOBIN 8.3 GM/DL (13.0-17.0); LYMPH % 7.2 % (9.0-44.0); LYMPHOCYTE # 1.2 TH/MM3 (1.0-4.8); MEAN CELL VOLUME 86.9 FL (80.0-100.0); MEAN CORPUSCULAR HEMOGLOBIN 30.3 PG (27.0-34.0); MEAN CORPUSCULAR HGB CONC 34.8 % (32.0-36.0); MEAN PLATELET VOLUME 11.2 FL (7.0-11.0); MONO % 5.4 % (0.0-8.0); MONOCYTE # 0.9 TH/MM3 (0-0.9); NEUT % 87.2 % (16.0-70.0); PLATELET COUNT 89 TH/MM3 (150-450); RED BLOOD COUNT 2.76 MIL/MM3 (4.50-5.90); RED CELL DISTRIBUTION WIDTH 15.5 % (11.6-17.2); WHITE BLOOD COUNT 16.1 TH/MM3 (4.0-11.0)
[2017-11-12] MEDS: PANTOPRAZOLE INJ 80 MG in SODIUM CHLORIDE 0.9% INJ 100 ML IV SCH (04:53)
[2017-11-12 05:17] LABS: ALBUMIN 2.7 GM/DL (3.4-5.0); BICARBONATE 23.1 MEQ/L (21.0-32.0); CALCIUM 7.4 MG/DL (8.5-10.1); CALCIUM-PROTEIN CORRECTED 8.9 MG/DL (8.5-10.1); CREATININE 1.77 MG/DL (0.60-1.30); MAGNESIUM 2.7 MG/DL (1.5-2.5); PHOSPHORUS 5.6 MG/DL (2.5-4.9); TOTAL BILIRUBIN ADULT 5.3 MG/DL (0.2-1.0); TOTAL PROTEIN 4.5 GM/DL (6.4-8.2)
[2017-11-12] MEDS: hydrALAZINE HCL 25 MG TAB PO SCH ×3 (05:22→22:17)
[2017-11-12 05:56] LABS: INTERNATIONAL NORMALIZED RATIO 1.2 RATIO; PROTHROMBIN TIME - PATIENT 12.6 SEC (9.8-11.6)
[2017-11-12 06:59] LABS: BANDS 3 % (0-6); CORRECTED NUCLEATED RBC 5 /100 WBC (0-0); LYMPHOCYTES 2 % (9-44); MONOCYTES 2 % (0-8); NEUTROPHIL # MANUAL DIFF 15.5 TH/MM3 (1.8-7.7); NUCLEATED RED BLOOD CELL 5 (0-0); POLYS (SEG NEUTROPHILS) 93 % (16-70)
[2017-11-12] MEDS: CHLORHEXIDINE 0.12% (ORAL KIT) 15 ML CUP MT SCH ×2 (08:00→20:00)
[2017-11-12] MEDS: LACTATED RINGER'S 1000 ML INJ 1,000 ML IV SCH ×2 (08:17→16:27)
--- NOTE | 2017-11-12 08:20 | HHI.CCPN ---
Subjective Remarks/Hospital Course 67-year-old male presents to the emergency department via EMS for evaluation of shortness of breath and pain and numbness to the left leg. Patient believes that he is shortness of breath is related to the pain in his leg. He cannot feel his leg from his groin down. He denies any history of the same. He does report history of COPD. He denies any known fevers or chills. He denies chest pain. Patient received 1 L normal saline bolus via EMS. Patient denies any history of bleeding or blood clots. No recent surgery or travel. No hemoptysis. No history of DVT/PE. He denies leg edema. Patient states the pain is 10/10 to the left leg. No exacerbating or alleviating factors. Moderate severity. 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 The right inflow is heavily diseased as well. The patient was evaluated by vascular surgeon public relations intern and was immediately started on heparin drip. SUBJ 10/29: Remains critically ill, encephalopathy. 4 out of 4 bottles positive for GNR. I will change Rocephin to Zosyn renally dosed to cover for Pseudomonas also. Continue azithromycin. Creatinine still elevated but slightly improved. WBC count slightly increased 17.2 now with 24% bands. Source of GNR sepsis could be either UTI or pneumonia. Will consult ID as well. Remains on IV heparin for acute left limb ischemia 10/30: platelets falling >50% again today. Cr still rising, but could be ATN/ contrast nephropathy. blood cultures growing e. coli by PCR, full speciation to follow. urine culture pending. discussed case with Dr. Lopez, will stop heparin , start argatroban and send HIT/CHARLEEN. denies complaints for me, but does have objective tenderness on palpation, RUQ. 10/31: Emergently intubated today a.m. by Dr. Puckett for worsening mental status, encephalopathy and worsening respiratory failure. Prior to intubation Dr. Puckett ' exam revealed right upper quadrant tenderness. Ultrasound of the gallbladder yesterday showed gallstones. Overnight Argatroban was supratherapeutic and was held, platelet count also dropped to 30,000, HIT screen is pending. Postintubation bilateral pupils are reactive but unequal. Will repeat CT of the head, CT abdomen pelvis. BUN 49/Creat 2.7, leukocytosis persisting 11/01: no improvements. ct abd/pelvis with evidence of possible choledocholithiasis. perc doug tube planned for this AM. on esmolol infusion for afib RVR. fio2 increased to 70%. 11/02: Sodium bicarbonate infusion continued per nephrology in the setting of rhabdomyolysis serial creatinine kinase pending. Cholecystostomy drain placement 100 cc overnight. Continued thrombocytopenia, CBC, serotonin release assay pending. Plan for reinitiation of heparin awaiting GI consultation for possible invasive procedures prior to restarting heparin. Patient sinus rhythm with occasional PAC's. 11/03: No acute events overnight. Sodium bicarbonate infusion discontinued this a.m. had any improved this a.m.. Chest x-ray showed worsening consolidation, FiO2 requirements were increased to 65% during the night. CPAP trials on hold currently. Biliary drainage from cholecystostomy tube revealing gram-negative rods. The patient continues on antibiotics. Bilateral dorsalis pedis pulses monophasic signals by Doppler. Heparin infusion reinitiated. 11/04: Sodium bicarbonate infusion discontinued at 7 AM yesterday. Chest x-ray worsening consolidation versus pleural effusions. FiO2 slightly decreased to 60 %, ABG improving. Pending quantification via ultrasound of pleural fluid in am. Lasix 40mg x1 additional dose provided today . PPN discontinued discussed with Dr. Colon tube feeds initiated at [facility]. Dietary consult ordered. 11/05: Afebrile. Patient tolerating tube feeds advanced to goal rate of 55 cc/ hr. chest x-ray with slight improvement FiO2 decreased to 55% ABG pending. Initiation of CPAP trial to be attempted today. 11/06: Late entry note. Patient seen at 628am. Patient was started on CPAP and continues on CPAP greater than 10 hours. Patient following commands, currently on Precedex infusion. 11/07: Patient remained on CPAP trials for approximately 12 hours yesterday and discontinued because of agitation. CPAP trials reinitiated this a.m. Patient complaint of sore throat Lortab ordered. Patient continues on Precedex for ventilator weaning process. Chest x-ray still shows pulmonary edema, additional dose Lasix 401 dose given this a.m.. When infusion continued, monophasic Doppler signals bilateral dorsalis pedal pulses noted. 11/08: Afebrile . Patient successfully extubated yesterday. Remains on O2 at 4 L nasal cannula O2 saturation 94-95%. Patient continues on heparin infusion, she was noted to have 9 BMs last evening plan for serial H&H's concern for possible stool with occult blood. Repeat stool for occult blood. Plan for possible bedside thoracentesis ,if respiratory requirements increase, currently on O2 4 L via nasal cannula in no apparent distress. 11/11 Late entry, notified of re-consult at 17:[address] Johnson, saw patient and immediately placed L IJ CVL because patient had ripped out an IV and had insufficient peripheral IV access given clinical condition. RN states patient had Hgb 7.5 this morning. Trend was unusual with Hb 8.3--> 12.5 (without transfusion)-->7.5 and lab recommended repeat. Repeat was drawn and was 4.2. Meanwhile, while awaiting re-draw patient became hypotensive, MAP down in the 40s, and was given albumin 25 gram IV. Now he has received 1 unit PRBC and BP improved to 120s/60s. Getting 2 additional units of PRBC stat. Nurse states heparin has been off since 12:30. Sending stat coags/fibrinogen. Patient denies nausea or vomiting. He has some right-sided abdominal pain. There is dark brown drainage from cholecystostomy tube. He has not had a bowel movement in 48 hours. No obvious evidence of GI bleeding. CT abdomen and pelvis has been ordered as "urgent", now giving additional PRBC and then will obtain stat. Gastroenterology has been following and I have notified them of the anemia, though this does not appear to be GI source at this time. Subjective: 11/12 CT last night showed large retroperitoneal hematoma. Transfused total of 3 units PRBC yest evening. Hgb now 8.3. Coags/fibrinogen in acceptable range this morning, heparin drip off. Patient states much less abdominal pain today. He is alert and oriented now. Coughing, O2 requirement up to 6 L NC, afebrile. Objective Vital Signs Date Time Temp Pulse Resp B/P (MAP) Pulse Ox O2 Delivery O2 Flow Rate FiO2 11/12/17 06:00 80 11/12/17 04:00 15 141/63 (89) 91 11/12/17 00:00 97.6 11/11/17 19:25 Nasal Cannula 4.00 Intake and Output 11/12/17 11/12/1718 08:00 16:00 00:00 Intake Total 1084 ml Output Total 800 ml Balance 284 ml Result Diagram: 11/12/17 0415 11/12/17 0415 Imaging Current Medications Medications (Trade) Dose Ordered Sig/Olesya Route Start Time Stop Time Status Last Admin (NS Flush) 2 ml UNSCH PRN IV FLUSH 10/28/17 22:15 (NS Flush) 2 ml BID IV FLUSH 10/29/17 09:00 11/07/17 19:41 (Tylenol) 650 mg Q6H PRN PO 10/28/17 22:15 (Dilaudid Pf Inj) 1 mg Q4H PRN IV 10/28/17 22:30 11/07/17 05:15 (Zofran Inj) 4 mg Q6H PRN IV PUSH 10/28/17 22:15 (Restoril) 15 mg HS PRN PO 10/28/17 22:15 Future Hold (Duoneb Neb) 1 ampule Q2HR NEB PRN INH 10/28/17 22:15 11/08/17 08:15 ([facility]) 1 [id number] XX 10/28/17 22:15 10/28/17 22:15 (Chlorhexidine 2% Cloth) Taper DAILY@04 TOP 10/29/17 04:00 10/25/18 03:59 11/08/17 04:00 (Chlorhexidine 2% Cloth) 3 pack UNSCH PRN TOP 10/28/17 22:15 (Elvira-Colace) 1 tab BID PO 10/29/17 09:00 11/07/17 08:21 (Milk Of Magnesia Liq) 30 ml Q12H PRN PO 10/28/17 22:15 (Senokot) 17.2 mg Q12H PRN PO 10/28/17 22:15 (Dulcolax Supp) 10 mg DAILY PRN RECTAL 10/28/17 22:15 (Lactulose Liq) 30 ml DAILY PRN PO 10/28/17 22:15 (SoluMEDROL INJ) 40 mg Q6HR IV PUSH 10/29/17 00:00 11/08/17 05:11 (Cardizem Cd) 240 mg DAILY PO 10/29/17 09:00 Future Hold 10/30/17 09:02 (Aspirin Chew) 81 mg DAILY CHEW 10/29/17 11:45 Future hold 11/07/17 08:21 (Brethine Inj) 1 mg UNSCH PRN SQ 10/31/17 06:15 (Peridex 0.12% Liq) 15 ml BID@08,20 MT 10/31/17 08:00 11/07/17 08:21 (Apresoline Inj) 20 mg Q4H PRN IV PUSH 11/02/17 14:00 (Catapres) 0.1 mg Q6H PRN PO 11/02/17 23:45 11/04/17 02:35 Heparin Sodium/ Dextrose 250 ml @ 12 mls/hr TITRATE PRN IV 11/03/17 07:00 11/07/17 23:52 (Apresoline) 25 mg Q8HR PO 11/03/17 14:00 11/08/17 05:11 (Lasix Inj) 40 mg DAILY IV PUSH 11/03/17 13:00 11/07/17 08:21 (Trandate) 100 mg Q12HR PO 11/04/17 21:00 11/07/17 19:41 (Mucomyst 20% Neb) 2 ml Q6HR NEB NEB 11/05/17 10:00 11/08/17 08:15 Ampicillin Sodium/ Sulbactam Sodium 3 gm/Sodium Chloride 100 ml @ 200 mls/hr Q6H IV 11/05/17 20:00 11/08/17 01:24 (Pepcid Inj) 20 mg Q12HR IV PUSH 11/06/17 21:00 11/07/17 19:41 ([place] 7.5-325 Mg) 1 tab Q6H PRN PO 11/07/17 08:00 11/07/17 09:06 Last Impressions Chest X-Ray 11/07/17 0600 Signed Impressions: CONCLUSION: No appreciable change. Percutaneous Cholangiogram 11/01/17 0000 Signed Impressions: CONCLUSION: 1. Uncomplicated percutaneous cholecystostomy as above. Abdomen/Pelvis CT 11/01/17 0000 Signed Impressions: CONCLUSION: 1. Gallstones. There do appear to be areas of increased density within the com mon bile duct concerning for choledocholithiasis. 2. 4 mm nonobstructing left renal stone. 3. Sigmoid colon diverticula. 4. Bibasilar areas of consolidation or atelectasis being worse on the left wit h mild bilateral pleural effusions. Renal Ultrasound 10/31/17 Signed Impressions: CONCLUSION: 1. No hydronephrosis. 2. Increased cortical echogenicity consistent with medical renal disease. Head Magnetic Resonance Angiography 10/31/17 Signed Impressions: CONCLUSION: 1. Unremarkable MRA of the brain. Head CT 10/31/17 Signed Impressions: CONCLUSION: 1. Negative CT Head non contrast. 2. No evidence of acute infarct, hemorrhage, mass or edema. Brain MRI 10/31/17 Signed Impressions: CONCLUSION: 1. Senescent changes with minimal periventricular ischemic white matter demyel ination. 2. No acute abnormality. Specifically, no acute infarction, mass or hemorrhage . Gall Bladder Ultrasound 10/30/17 Signed Impressions: CONCLUSION: 1. Fatty infiltration of the liver. 2. Multiple stones in the gallbladder. No biliary tract obstruction. Extremity Arterial Study 10/28/17 Signed Impressions: CONCLUSION: 1. Abnormal ABIs, left greater than right. The left DAVID is significantly dimin ished at 0.14. Aorta w/Runoff CTA 10/28/17 Signed Impressions: Service Date/Time: Saturday, October 28, 2017 21:50 - CONCLUSION: 1. Acute occlusion of the left inflow with concern for short segment occlusion involving the distal right inflow. This raises concern for an embolic event. 2. Right lower extremity shows scattered disease throughout the common femoral artery, SFA and [id number] popliteal artery with three-vessel runoff to the foot. 3. Left lower extremity with reconstitution of the common femoral artery with diseased out flow and two vessel runoff to the foot as detailed above. 4. 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 5. Hepatic steatosis. 6. Cholelithiasis. Juanjose Mckeon Jr., MD Last Impressions Chest X-Ray 11/03/17 0600 Signed Impressions: CONCLUSION: Worsening parenchymal consolidation and small effusions at each lung base. Percutaneous Cholangiogram 11/01/17 Signed Impressions: CONCLUSION: 1. Uncomplicated percutaneous cholecystostomy as above. Abdomen/Pelvis CT 11/01/17 Signed Impressions: CONCLUSION: 1. Gallstones. There do appear to be areas of increased density within the com mon bile duct concerning for choledocholithiasis. 2. 4 mm nonobstructing left renal stone. 3. Sigmoid colon diverticula. 4. Bibasilar areas of consolidation or atelectasis being worse on the left wit h mild bilateral pleural effusions. Renal Ultrasound 10/31/17 Signed Impressions: CONCLUSION: 1. No hydronephrosis. 2. Increased cortical echogenicity consistent with medical renal disease. Head Magnetic Resonance Angiography 10/31/17 Signed Impressions: CONCLUSION: 1. Unremarkable MRA of the brain. Head CT 10/31/17 Signed Impressions: CONCLUSION: 1. Negative CT Head non contrast. 2. No evidence of acute infarct, hemorrhage, mass or edema. Brain MRI 10/31/17 Signed Impressions: CONCLUSION: 1. Senescent changes with minimal periventricular ischemic white matter demyel ination. 2. No acute abnormality. Specifically, no acute infarction, mass or hemorrhage . Gall Bladder Ultrasound 10/30/17 Signed Impressions: CONCLUSION: 1. Fatty infiltration of the liver. 2. Multiple stones in the gallbladder. No biliary tract obstruction. Extremity Arterial Study 10/28/17 Signed Impressions: CONCLUSION: 1. Abnormal ABIs, left greater than right. The left DAVID is significantly dimin ished at 0.14. Aorta w/Runoff CTA 10/28/17 Signed Impressions: Service Date/Time: Saturday, October 28, 2017 21:50 - CONCLUSION: 1. Acute occlusion of the left inflow with concern for short segment occlusion involving the distal right inflow. This raises concern for an embolic event. 2. Right lower extremity shows scattered disease throughout the common femoral artery, SFA and [id number] popliteal artery with three-vessel runoff to the foot. 3. Left lower extremity with reconstitution of the common femoral artery with diseased out flow and two vessel runoff to the foot as detailed above. 4. 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 5. Hepatic steatosis. 6. Cholelithiasis. Juanjose Mckeon Jr., MD Last Impressions Percutaneous Cholangiogram 11/01/17 Signed Impressions: CONCLUSION: 1. Uncomplicated percutaneous cholecystostomy as above. Abdomen/Pelvis CT 11/01/17 Signed Impressions: CONCLUSION: 1. Gallstones. There do appear to be areas of increased density within the com mon bile duct concerning for choledocholithiasis. 2. 4 mm nonobstructing left renal stone. 3. Sigmoid colon diverticula. 4. Bibasilar areas of consolidation or atelectasis being worse on the left wit h mild bilateral pleural effusions. Renal Ultrasound 10/31/17 Signed Impressions: CONCLUSION: 1. No hydronephrosis. 2. Increased cortical echogenicity consistent with medical renal disease. Head Magnetic Resonance Angiography 10/31/17 Signed Impressions: CONCLUSION: 1. Unremarkable MRA of the brain. Head CT 10/31/17 Signed Impressions: CONCLUSION: 1. Negative CT Head non contrast. 2. No evidence of acute infarct, hemorrhage, mass or edema. Chest X-Ray 10/31/17 Signed Impressions: CONCLUSION: Satisfactory position of endotracheal and nasogastric tubes. Increasing airspace disease and bilateral effusions. Brain MRI 10/31/17 Signed Impressions: CONCLUSION: 1. Senescent changes with minimal periventricular ischemic white matter demyel ination. 2. No acute abnormality. Specifically, no acute infarction, mass or hemorrhage . Gall Bladder Ultrasound 10/30/17 Signed Impressions: CONCLUSION: 1. Fatty infiltration of the liver. 2. Multiple stones in the gallbladder. No biliary tract obstruction. Extremity Arterial Study 10/28/17 Signed Impressions: CONCLUSION: 1. Abnormal ABIs, left greater than right. The left DAVID is significantly dimin ished at 0.14. Aorta w/Runoff CTA 10/28/17 Signed Impressions: Service Date/Time: Saturday, October 28, 2017 21:50 - CONCLUSION: 1. Acute occlusion of the left inflow with concern for short segment occlusion involving the distal right inflow. This raises concern for an embolic event. 2. Right lower extremity shows scattered disease throughout the common femoral artery, SFA and [id number] popliteal artery with three-vessel runoff to the foot. 3. Left lower extremity with reconstitution of the common femoral artery with diseased out flow and two vessel runoff to the foot as detailed above. 4. 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 5. Hepatic steatosis. 6. Cholelithiasis. Juanjose Mckeon Jr., MD Last 24 hours Impressions Chest X-Ray 10/28/172010 Signed Impressions: Service Date/Time: Saturday, October 28, 2017 20:20 - CONCLUSION: Left lower lobe infiltrate. Mild cardiomegaly. Juanjose Mckeon Jr., MD Objective Remarks GENERAL: This is a well-developed undernourished middle-aged male, sitting up in bed, alert and conversant now. SKIN: Warm and dry. HEAD: Normocephalic. ENT: No scleral icterus. No injection or drainage. Pupils are now equal at 3mm, reactive. Nasal cannula at 6 L nasal cannula. NECK: Supple, trachea midline. No JVD. CARDIOVASCULAR: Regular, rate in the 70s. No murmurs rubs or gallops. RESPIRATORY: Breathing comfortably, intermittent wet cough. No wheezes rales or rhonchi appreciated. Breath sounds equal bilaterally. On nasal cannula. GASTROINTESTINAL: Abdomen soft, mildly distended, tender in right abdomen but no rebound or guarding, less tender compared with yesterday., bowel sounds hypoactive. Cholecystostomy tube is in place draining dark brown fluid. No flank hematoma. : Peña in place with dark yellow urine output MUSCULOSKELETAL: No cyanosis, 1+ bipedal edema. Bilateral DP with Doppler pulses. Discoloration of left fifth toe NEURO EXAM: Eyes open, makes eye contact. Oriented to person, place, year. Strength 5 out of 5 in all extremities. A/P Assessment and Plan ASSESSMENT/PLAN: NEURO: Acute metabolic encephalopathy, improved -Lortab as needed for pain -10/31 CT of the head- negative -10/31MRIminimal periventricular ischemic white matter change no acute abnormality RESP: COPD exacerbation, resolved Left lower lobe pneumonia, resolved ARDS, resolved -Emergently intubated and placed on mechanical ventilation 10/31/2017. Extubated 11/07/17. -Now on nasal cannula. Coughing a lot today. Will check chest x-ray. Continue Symbicort 160/4.52 puffs inhaled every 12 hours Incentive spirometry every hour awake Dr. Johnson following CVS: Hemorrhagic shock, resolved. Secondary to R retroperitoneal hematoma Lactic acidemia Acute on chronic left limb ischemia, improved Paroxysmal atrial fibrillation HTN -CTA showed severe aorto-iliac occlusive disease with left iliac thrombosis. Dr. Lopez evaluated, may need ax-fem bypass when more stable. -Significant calcifications and peripheral vascular disease -2D echo: EF 50%, no significant valvular lesions. left sided pleural effusion -HIT screen negative. CHARLEEN -negative LR 100 mL/h. Transfused as per below. GI Acute hepatic dysfunction Hyperbilirubinemia Transaminitis Acute Choledocholithiasis R retroperitoneal hematoma -Trend LFTs, gallbladder ultrasound showed multiple gallstones -Repeat CT abdomen/pelvis 11/01: c/w choledocholithiasis - GI consult. 11/02-Dr. [place], no invasive intervention at this time - Perc cholecystostomy tube placed 11/01 by IR. -Eventual cholecystectomy when stabilized. -Acute hemorrhagic shock on 11/11 while on heparin drip, transfused [address] with large R retroperitoneal hematoma. Does not appear to be actively bleeding now. If evidence of recurrent bleeding may need IR consult for angio embolization. - No evidence of GI bleeding, d/c protonix drip Acute kidney injury Acute metabolic acidosis Initial DEBORA on admission improved to creatinine 1.2-1.3. Creatinine now 1.77. Lasix held due to hemorrhagic shock, Nephrology has signed off. ID E COLI bacteremia/severe sepsis, resolved Enterococcus in the urine: possible colonization vs. UTI. Acute Choledocholithiasis Biliary fluid gram-negative rods Cholecystostomy placed 11/01. Continue antibiotics per ID: Unasyn HEME: Acute blood loss anemia acute thrombocytopenia: Initially consumptive secondary to sepsis earlier during admission. Now consumptive secondary to acute blood loss. Transfuse as indicated for platelet count less than 50 or if her current episode of bleeding and need for large-volume transfusion - HIT negative. CHARLEEN negative 10/30. Heparin on hold since 12: 30 11/11. Monitor coags, transfuse blood products as indicated. DVT GI prophylaxis -Vickey's and SCDs -Heparin infusion on hold due to bleeding. ACCESS: . Placed emergent left IJ central venous line 11/11 #2 Patient states he agrees to reintubation if needed. In the setting of pulseless arrest he would not want CPR, shocks, intubation, ACLS drugs. Change CODE STATUS is alternate code intubation only. Patient's sister states that he has designated her as healthcare surrogate. Discussed with her that palliative care will follow during hospitalization and she was agreeable but wishes to be present and involved when palliative team approaches patient. I have discussed with palliative care team. Level 3 f/u. Niru Puckett MD Nov 12, 2017 08:20
[2017-11-12] MEDS: DILTIAZEM-CD 240 MG CAP ER PO SCH (09:00)
--- NOTE | 2017-11-12 09:39 | PD.VS.PN ---
Subjective Subjective/Hospital Course Pt extubated alert in NAD Pt continues to move all extremities LE warm w/ motor intact Distal pulses + via Doppler Objective Vitals/I&O Date Time Temp Pulse Resp B/P (MAP) Pulse Ox O2 Delivery O2 Flow Rate FiO2 11/12/17 06:00 80 11/12/17 04:00 64 11/12/17 04:00 64 15 141/63 (89) 91 11/12/17 02:00 64 11/12/17 00:00 97.6 68 17 118/60 (79) 89 11/12/17 00:00 68 11/11/17 22:00 69 11/11/17 20:34 97.3 78 28 129/69 92 11/11/17 20:00 67 11/11/17 20:00 97.3 67 17 143/61 (88) 96 11/11/17 19:25 97 Nasal Cannula 4.00 11/11/17 18:00 79 11/11/17 16:00 71 11/11/17 16:00 97.9 71 18 116/57 (76) 11/11/17 14:12 98.1 75 14 88/52 11/11/17 14:00 77 11/11/17 12:00 98.2 82 20 74/50 (58) 100 11/11/17 12:00 82 11/11/17 10:00 87 11/12/17 11/12/17 11/12/17 07:00 15:00 23:00 Intake Total 1859 ml Output Total 800 ml Balance 1059 ml Physical Exam GENERAL: Alert in NAD/ GCS 15 SKIN: LE/UE Warm and dry with motor intact MUSCULOSKELETAL: No cyanosis, 2+ pitting edema B LE (feet) Abdomen non tender Biphasic R/L DP/PT heard via Doppler Laboratory Laboratory Tests Test 11/11/17 13:08 11/11/17 13:09 11/11/17 17:30 11/11/17 21:18 Blood Urea Nitrogen 64 Creatinine 1.86 Random Glucose 180 Total Protein 4.2 Albumin 2.0 Calcium Level 7.1 Phosphorus Level 6.3 Magnesium Level 2.6 Alkaline Phosphatase 47 Aspartate Amino Transf (AST/SGOT) 56 Alanine Aminotransferase (ALT/SGPT) 96 Total Bilirubin 3.4 Sodium Level 145 Potassium Level 3.8 Chloride Level 108 Carbon Dioxide Level 16.5 Anion Gap 21 Estimat Glomerular Filtration Rate 36 Protein Corrected Calcium 8.7 Free Thyroxine 0.97 Thyroid Stimulating Hormone 3rd Gen 0.625 White Blood Count 15.2 14.3 Red Blood Count 1.38 2.99 Hemoglobin 4.2 8.9 Hematocrit 13.1 26.0 Mean Corpuscular Volume 94.8 86.7 Mean Corpuscular Hemoglobin 30.5 29.7 Mean Corpuscular Hemoglobin Concent 32.1 34.2 Red Cell Distribution Width 14.3 15.9 Platelet Count 151 84 Mean Platelet Volume 11.3 10.8 Neutrophils (%) (Auto) 90.5 87.1 Lymphocytes (%) (Auto) 4.1 6.9 Monocytes (%) (Auto) 5.3 5.9 Eosinophils (%) (Auto) 0.0 0.0 Basophils (%) (Auto) 0.1 0.1 Neutrophils # (Auto) 13.8 12.5 Lymphocytes # (Auto) 0.6 1.0 Monocytes # (Auto) 0.8 0.8 Eosinophils # (Auto) 0.0 0.0 Basophils # (Auto) 0.0 0.0 CBC Comment AUTO DIFF AUTO DIFF Differential Total Cells Counted 100 100 Neutrophils % (Manual) 90 89 Band Neutrophils % 1 4 Lymphocytes % 5 4 Monocytes % 1 2 Neutrophils # (Manual) 14.3 13.4 Metamyelocytes 3 1 Differential Comment FINAL DIFF MANUAL FINAL DIFF MANUAL Platelet Estimate NORMAL LOW Platelet Morphology Comment NORMAL ENLARGED Basophilic Stippling FAINT FAINT Activated Partial Thromboplast Time 69.7 27.1 Reticulocyte Count 2.5 Absolute Reticulocyte Count 57.4 Haptoglobin 123 Prothrombin Time 14.0 Prothromb Time International Ratio 1.4 Fibrinogen 123 Lactic Acid Level 6.6 3.2 Lactate Dehydrogenase 476 Nucleated Red Blood Cells 2 Toxic Granulation Test 11/12/17 04:15 11/12/17 05:30 White Blood Count 16.1 Red Blood Count 2.76 Hemoglobin 8.3 Hematocrit 24.0 Mean Corpuscular Volume 86.9 Mean Corpuscular Hemoglobin 30.3 Mean Corpuscular Hemoglobin Concent 34.8 Red Cell Distribution Width 15.5 Platelet Count 89 Mean Platelet Volume 11.2 Neutrophils (%) (Auto) 87.2 Lymphocytes (%) (Auto) 7.2 Monocytes (%) (Auto) 5.4 Eosinophils (%) (Auto) 0.0 Basophils (%) (Auto) 0.2 Neutrophils # (Auto) 14.1 Lymphocytes # (Auto) 1.2 Monocytes # (Auto) 0.9 Eosinophils # (Auto) 0.0 Basophils # (Auto) 0.0 CBC Comment AUTO DIFF Differential Total Cells Counted 100 Neutrophils % (Manual) 93 Band Neutrophils % 3 Lymphocytes % 2 Monocytes % 2 Neutrophils # (Manual) 15.5 Nucleated Red Blood Cells 5 Differential Comment FINAL DIFF MANUAL Platelet Estimate LOW Platelet Morphology Comment ENLARGED Blood Urea Nitrogen 69 Creatinine 1.77 Random Glucose 103 Total Protein 4.5 Albumin 2.7 Calcium Level 7.4 Phosphorus Level 5.6 Magnesium Level 2.7 Alkaline Phosphatase 40 Aspartate Amino Transf (AST/SGOT) 63 Alanine Aminotransferase (ALT/SGPT) 96 Total Bilirubin 5.3 Sodium Level 146 Potassium Level 3.6 Chloride Level 110 Carbon Dioxide Level 23.1 Anion Gap 13 Estimat Glomerular Filtration Rate 38 Protein Corrected Calcium 8.9 Prothrombin Time 12.6 Prothromb Time International Ratio 1.2 Activated Partial Thromboplast Time 23.5 Fibrinogen 153 Date/Time Source Procedure Growth Status 10/30/17 20:38 Blood Peripheral Aerobic Blood Culture - Final NO GROWTH IN 5 DAYS Complete 10/30/17 20:38 Blood Peripheral Anaerobic Blood Culture - Final NO GROWTH IN 5 DAYS Complete 11/01/17 11:05 Fluid Other Gram Stain - Final Complete 11/01/17 11:05 Fluid Other Body Fluid Culture - Final Complete 11/04/17 05:08 Stool Stool Stool Occult Blood (NUBIA) - Final HEMOCCULT POSITIVE Complete 10/31/17 10:40 Sputum Endotracheal Gram Stain - Final Complete 10/31/17 10:40 Sputum Endotracheal Sputum Culture - Final HEAVY GROWTH NORMAL RESPIRATORY KAREEM Complete 10/29/17 00:00 Urine Catheterized Urine Urine Culture - Final Enterococcus Faecalis Complete Imaging Last 48 hours Impressions Abdomen/Pelvis CT 11/11/17 8135 Signed Impressions: CONCLUSION: 1. New complex fluid collection in the right-sided the abdomen which appears t o be extraperitoneal anterior to the right psoas muscle and displacing the righ t colon medially. Fluid collection measures up to 21 cm in length and 10.7 cm i n maximal diameter. Differential diagnosis includes hematoma or infection/absce ss. 2. Mild free fluid within the abdomen. 3. Mild anasarca. 4. Cholecystostomy tube in right upper quadrant without fluid directly around the gallbladder. 5. Small to moderate bilateral effusions with slight improvement in basilar mani ng consolidation since November 01. Chest X-Ray 11/11/17 0000 Signed Impressions: CONCLUSION: Satisfactory central line positioning. Assessment and Plan Plan Acute on chronic limb ischemia, motor intact Reviewed CT- Retroperitoneal hematoma noted Plan Discontinue hep gtt Continue daily ASA 81mg/Plavix therapy Continue neurovascular checks Continue HCT monitoring Kylie Wood NP [facility] [phone] Kylie WoodP Nov 12, 2017 09:39
--- NOTE | 2017-11-12 09:45 | RADRPT ---
EXAM DATE: 11/12/2017 9:08 AM EDT AGE/SEX: 67 years / Male INDICATIONS: Shortness of breath. CLINICAL DATA: This is the patient's subsequent encounter. Patient reports that signs and symptoms h ave been present for 2 weeks and indicates a pain score of 0/10. MEDICAL/SURGICAL HISTORY: Chronic obstructive pulmonary disease. None. COMPARISON: [facility] [place]ST SING[place] AP, 11/11/2017. . FINDINGS: Left neck central line is stable in position. There is persistent dense consolidative change and effu josé miguel at the left lung base. Slight interval worsening in opacity at the right lung base. Accounting f or pronounced rotation, cardiac contours are grossly stable. CONCLUSION: Slight interval worsening in aeration Electronically signed by: Phi Strong MD 11/12/2017 9:43 AM EDT
[2017-11-12 12:08] LABS: HEMATOCRIT 21.8 % (39.0-51.0); HEMOGLOBIN 7.4 GM/DL (13.0-17.0)
[2017-11-12] MEDS: SODIUM CHLORIDE 0.9% FLUSH 10 ML FLUSH IV FLUSH SCH ×2 (12:35→22:17)
[2017-11-12] MEDS: guaiFENesin E.R. 600 MG TAB PO SCH ×2 (12:35→22:17)
[2017-11-12] MEDS: FAMOTIDINE 20 MG TAB PO SCH ×2 (12:35→22:17)
[2017-11-12] MEDS: BUDESONIDE-FORMOTEROL 160/4.5 MCG INHALER INH SCH ×2 (12:37→22:17)
--- NOTE | 2017-11-12 12:39 | HHI.GIFU ---
Subjective Remarks Pt remains in ICU Reports some mild abdominal pain Denies nausea, vomiting One BM this morning, no blood or black, tarry stools Discussed with Primary Care Coordinator, Dr. Puckett ([facility]) Objective Vitals I&O Vital Signs Date Time Temp Pulse Resp B/P (MAP) Pulse Ox O2 Delivery O2 Flow Rate FiO2 11/12/17 12:00 63 11/12/17 10:00 72 11/12/17 08:00 81 11/12/17 06:00 80 11/12/17 04:00 64 11/12/17 04:00 64 15 141/63 (89) 91 11/12/17 02:00 64 11/12/17 00:00 97.6 68 17 118/60 (79) 89 11/12/17 00:00 68 11/11/17 22:00 69 11/11/17 20:34 97.3 78 28 129/69 92 11/11/17 20:00 67 11/11/17 20:00 97.3 67 17 143/61 (88) 96 11/11/17 19:25 97 Nasal Cannula 4.00 11/11/17 18:00 79 11/11/17 16:00 71 11/11/17 16:00 97.9 71 18 116/57 (76) 11/11/17 14:12 98.1 75 14 88/52 11/11/17 14:00 77 I/O 11/11/17 11/11/17 11/11/17 11/12/17 11/12/17 11/12/17 07:00 15:00 23:00 07:00 15:00 23:00 Intake Total 710 ml 25 ml 935 ml 1859 ml Output Total 930 ml 800 ml Balance -220 ml 25 ml 935 ml 1059 ml Intake Oral 360 ml IV Total 350 ml 85 ml 1434 ml Packed Cells 800 ml 400 ml Blood Product IV Normal Saline Flush 25 ml 50 ml 25 ml Output Urine Total 900 ml 800 ml Drainage Total 30 ml # Bowel Movements 0 0 Laboratory Laboratory Tests Test 11/11/17 13:08 11/11/17 13:09 11/11/17 17:30 11/11/17 21:18 Blood Urea Nitrogen 64 Creatinine 1.86 Random Glucose 180 Total Protein 4.2 Albumin 2.0 Calcium Level 7.1 Phosphorus Level 6.3 Magnesium Level 2.6 Alkaline Phosphatase 47 Aspartate Amino Transf (AST/SGOT) 56 Alanine Aminotransferase (ALT/SGPT) 96 Total Bilirubin 3.4 Sodium Level 145 Potassium Level 3.8 Chloride Level 108 Carbon Dioxide Level 16.5 Anion Gap 21 Estimat Glomerular Filtration Rate 36 Protein Corrected Calcium 8.7 Free Thyroxine 0.97 Thyroid Stimulating Hormone 3rd Gen 0.625 White Blood Count 15.2 14.3 Red Blood Count 1.38 2.99 Hemoglobin 4.2 8.9 Hematocrit 13.1 26.0 Mean Corpuscular Volume 94.8 86.7 Mean Corpuscular Hemoglobin 30.5 29.7 Mean Corpuscular Hemoglobin Concent 32.1 34.2 Red Cell Distribution Width 14.3 15.9 Platelet Count 151 84 Mean Platelet Volume 11.3 10.8 Neutrophils (%) (Auto) 90.5 87.1 Lymphocytes (%) (Auto) 4.1 6.9 Monocytes (%) (Auto) 5.3 5.9 Eosinophils (%) (Auto) 0.0 0.0 Basophils (%) (Auto) 0.1 0.1 Neutrophils # (Auto) 13.8 12.5 Lymphocytes # (Auto) 0.6 1.0 Monocytes # (Auto) 0.8 0.8 Eosinophils # (Auto) 0.0 0.0 Basophils # (Auto) 0.0 0.0 CBC Comment AUTO DIFF AUTO DIFF Differential Total Cells Counted 100 100 Neutrophils % (Manual) 90 89 Band Neutrophils % 1 4 Lymphocytes % 5 4 Monocytes % 1 2 Neutrophils # (Manual) 14.3 13.4 Metamyelocytes 3 1 Differential Comment FINAL DIFF MANUAL FINAL DIFF MANUAL Platelet Estimate NORMAL LOW Platelet Morphology Comment NORMAL ENLARGED Basophilic Stippling FAINT FAINT Activated Partial Thromboplast Time 69.7 27.1 Reticulocyte Count 2.5 Absolute Reticulocyte Count 57.4 Haptoglobin 123 Prothrombin Time 14.0 Prothromb Time International Ratio 1.4 Fibrinogen 123 Lactic Acid Level 6.6 3.2 Lactate Dehydrogenase 476 Nucleated Red Blood Cells 2 Toxic Granulation Test 11/12/17 04:15 11/12/17 05:30 11/12/17 11:13 White Blood Count 16.1 Red Blood Count 2.76 Hemoglobin 8.3 7.4 Hematocrit 24.0 21.8 Mean Corpuscular Volume 86.9 Mean Corpuscular Hemoglobin 30.3 Mean Corpuscular Hemoglobin Concent 34.8 Red Cell Distribution Width 15.5 Platelet Count 89 Mean Platelet Volume 11.2 Neutrophils (%) (Auto) 87.2 Lymphocytes (%) (Auto) 7.2 Monocytes (%) (Auto) 5.4 Eosinophils (%) (Auto) 0.0 Basophils (%) (Auto) 0.2 Neutrophils # (Auto) 14.1 Lymphocytes # (Auto) 1.2 Monocytes # (Auto) 0.9 Eosinophils # (Auto) 0.0 Basophils # (Auto) 0.0 CBC Comment AUTO DIFF Differential Total Cells Counted 100 Neutrophils % (Manual) 93 Band Neutrophils % 3 Lymphocytes % 2 Monocytes % 2 Neutrophils # (Manual) 15.5 Nucleated Red Blood Cells 5 Differential Comment FINAL DIFF MANUAL Platelet Estimate LOW Platelet Morphology Comment ENLARGED Blood Urea Nitrogen 69 Creatinine 1.77 Random Glucose 103 Total Protein 4.5 Albumin 2.7 Calcium Level 7.4 Phosphorus Level 5.6 Magnesium Level 2.7 Alkaline Phosphatase 40 Aspartate Amino Transf (AST/SGOT) 63 Alanine Aminotransferase (ALT/SGPT) 96 Total Bilirubin 5.3 Sodium Level 146 Potassium Level 3.6 Chloride Level 110 Carbon Dioxide Level 23.1 Anion Gap 13 Estimat Glomerular Filtration Rate 38 Protein Corrected Calcium 8.9 Prothrombin Time 12.6 Prothromb Time International Ratio 1.2 Activated Partial Thromboplast Time 23.5 Fibrinogen 153 Date/Time Source Procedure Growth Status 10/30/17 20:38 Blood Peripheral Aerobic Blood Culture - Final NO GROWTH IN 5 DAYS Complete 10/30/17 20:38 Blood Peripheral Anaerobic Blood Culture - Final NO GROWTH IN 5 DAYS Complete 11/01/17 11:05 Fluid Other Gram Stain - Final Complete 11/01/17 11:05 Fluid Other Body Fluid Culture - Final Complete 11/04/17 05:08 Stool Stool Stool Occult Blood (NUBIA) - Final HEMOCCULT POSITIVE Complete 10/31/17 10:40 Sputum Endotracheal Gram Stain - Final Complete 10/31/17 10:40 Sputum Endotracheal Sputum Culture - Final HEAVY GROWTH NORMAL RESPIRATORY TERRELL Complete 10/29/17 00:00 Urine Catheterized Urine Urine Culture - Final Enterococcus Faecalis Complete Imaging Last Impressions Chest X-Ray 11/12/17 0000 Signed Impressions: CONCLUSION: Slight interval worsening in aeration Abdomen/Pelvis CT 11/11/17 4439 Signed Impressions: CONCLUSION: 1. New complex fluid collection in the right-sided the abdomen which appears t o be extraperitoneal anterior to the right psoas muscle and displacing the righ t colon medially. Fluid collection measures up to 21 cm in length and 10.7 cm i n maximal diameter. Differential diagnosis includes hematoma or infection/absce ss. 2. Mild free fluid within the abdomen. 3. Mild anasarca. 4. Cholecystostomy tube in right upper quadrant without fluid directly around the gallbladder. 5. Small to moderate bilateral effusions with slight improvement in basilar mani ng consolidation since November 01. Chest Ultrasound 11/07/17 Signed Impressions: CONCLUSION: 1. Left-sided pleural effusion. Percutaneous Cholangiogram 11/01/17 Signed Impressions: CONCLUSION: 1. Uncomplicated percutaneous cholecystostomy as above. Renal Ultrasound 10/31/17 Signed Impressions: CONCLUSION: 1. No hydronephrosis. 2. Increased cortical echogenicity consistent with medical renal disease. Head Magnetic Resonance Angiography 10/31/17 Signed Impressions: CONCLUSION: 1. Unremarkable MRA of the brain. Head CT 10/31/17 Signed Impressions: CONCLUSION: 1. Negative CT Head non contrast. 2. No evidence of acute infarct, hemorrhage, mass or edema. Brain MRI 10/31/17 Signed Impressions: CONCLUSION: 1. Senescent changes with minimal periventricular ischemic white matter demyel ination. 2. No acute abnormality. Specifically, no acute infarction, mass or hemorrhage . Gall Bladder Ultrasound 10/30/17 Signed Impressions: CONCLUSION: 1. Fatty infiltration of the liver. 2. Multiple stones in the gallbladder. No biliary tract obstruction. Extremity Arterial Study 10/28/17 Signed Impressions: CONCLUSION: 1. Abnormal ABIs, left greater than right. The left DAVID is significantly dimin ished at 0.14. Aorta w/Runoff CTA 10/28/17 Signed Impressions: Service Date/Time: Saturday, October 28, 2017 21:50 - CONCLUSION: 1. Acute occlusion of the left inflow with concern for short segment occlusion involving the distal right inflow. This raises concern for an embolic event. 2. Right lower extremity shows scattered disease throughout the common femoral artery, SFA and [id number] popliteal artery with three-vessel runoff to the foot. 3. Left lower extremity with reconstitution of the common femoral artery with diseased out flow and two vessel runoff to the foot as detailed above. 4. 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 5. Hepatic steatosis. 6. Cholelithiasis. Juanjose Mckeon Jr., MD Physical Exam HEENT: Normocephalic; atraumatic CHEST - Even/unlabored- on NC CARDIAC: RRR ABDOMEN: Distended, soft, bowel sounds active, nontender. Biliary drain with good drainage. SKIN: Normal; no rash; no jaundice. APPLICATIONS CONSULTANT: Alert and oriented (Annika Tenorio) Assessment and Plan Assessment: (1) Sepsis ICD Codes: A41.9 - Sepsis, unspecified organism Status: Acute Plan Assessment: - Choledocholithiasis with elevated LFTs, trending down CT abdomen WO IV contrast (11/01) --> Gallstones, appears to be areas of increased density within the common bile duct concerning for choledocholithiasis. S/P IR for percutaneous cholecystostomy drain on 11/01 - Culture with heavy growth of gram positive and gram negative enteric terrell, no further work up Pt on Unasyn - Elevated LFTs- likely secondary to obstruction from above but liver work up pending Iron-145 TIBC-214 %sat-67.7 Ferritin-248 AFP-6.9 Hepatitis panel negative [place], AMA, ASMA negative. AAT-215 Ceruloplasmin-24 - Anemia, normocytic- with Hemoccult positive stools- no obvious GIB - Cold left leg- Heparin gtt (11/08) Pt now extubated, alert and oriented, tolerating PO. Denies nausea, vomiting, abdominal pain. Discussed plan for ERCP this week. Will need clearance to DC Heparin gtt past midnight for procedure. Pt had multiple BMs yesterday, Hemoccult stool ordered per [facility], has had no BM over night or today per RN. H/H stable (11/10) Pt remains on 6 L O2 via NC. Drop in hgb noted, no BMs documented since 11/08. (11/11) Pt on 5 L O2 via NC. No repeat labs from today. Denies BM in a few days. (11/12) Pt on 6 L O2 via NC. Significant drop in hgb noted yesterday, no obvious source of GIB. Pt had a BM this morning but according to RN was not bloody or black and tarry. CT abdomen and pelvis done yesterday reveals retroperitoneal hematoma. Vascular surgery saw pt, discontinued Heparin gtt, planning on Plavix and ASA when able. Discussed case with Primary Care Coordinator Dr. Puckett, pt is still too unstable for ERCP and has multiple medical problems at this time. I advised that we would be signing off but gladly available if needed or if pt becomes more stable. Plan ERCP when stable Monitor output from cholecystostomy drain Monitor LFTs Antibiotics per ID Monitor H/H Notify GI if any obvious GIB GI will sign off as mentioned above, please reconsult as needed Pt has been seen and examined by myself and Dr. Coats and this note is written on his behalf (Annika Tenorio) Physician Comments As above, multiple other issues the current time. Will see back again when more stable. (James Coats MD) Problem Qualifiers (1) Sepsis: Qualified Codes: A41.9 - Sepsis, unspecified organism Annika Tenorio Nov 12, 2017 12:39 James Coats MD Nov 12, 2017 13:00
--- NOTE | 2017-11-12 14:35 | RADRPT ---
EXAM DATE: 11/12/2017 2:28 PM EDT AGE/SEX: 67 years / Male INDICATIONS: Hemoptysis. CLINICAL DATA: This is the patient's subsequent encounter. Patient reports that signs and symptoms h ave been present for 1 week and indicates a pain score of Nonresponsive. MEDICAL/SURGICAL HISTORY: Non-responsive. Non-responsive. RADIATION DOSE: 4.56 CTDI (mGy) COMPARISON: No prior [facility] exams available for comparison. TECHNIQUE: Multiple contiguous axial images were obtained through the chest without contrast. Image s were obtained in suspended respiration using multiple row detector helical technique. Using automa kaylah exposure control and adjustment of the mA and/or kV according to patient size, radiation dose was kept as low as reasonably achievable to obtain optimal diagnostic quality images. FINDINGS: Lungs: There is some minimal atelectasis left lung base. Minimal airspace consolidation left lung ba se more superiorly could be areas of pneumonia. Mediastinum: There is good visualization of the great vessels of the middle mediastinum. No evidenc e of mediastinal or hilar adenopathy/mass. Pleurae: Moderate size bilateral pleural effusions left greater than right. Axillae: Unremarkable. Bony Structures: Unremarkable. Miscellaneous: The examination was extended to include the upper abdomen, and both adrenal glands ar e normal in size and configuration. Left IJ central line. Cholecystostomy tube within the gallbladder fossa CONCLUSION: 1. Bilateral pleural effusions left greater than right. Areas of infiltrate versus atelectasis left lung base difficult to rule out a small superimposed pneumonia. 2. Dense coronary atherosclerotic disease. Electronically signed by: Chad Panda MD 11/12/2017 2:33 PM EDT
[2017-11-12] MEDS ORDERED: FUROSEMIDE 20 MG/2 ML VIAL IV PUSH ONE (16:15)
[2017-11-12] MEDS ORDERED: SODIUM CHLOR 0.9% 250 ML INJ 250 ML IV ONE (16:15)
--- NOTE | 2017-11-12 18:34 | HHI.IDPN ---
Subjective Subjective Remarks ID [id number] for Dr Soler and is a 67-year-old white male who presented to the Emergency Department with shortness of breath and left leg pain. Sepsis workup initiated and pt found to have acute cholecystitis and E.coli bacteremia. s.p Aparna'stomy tube placement. Also being treated for Pneumonia. Overnight events reviewed with RN. Extubated On NC O2 Low H/H receiving blood transfusions. No clinical bleeding: GI or . denies any pain. Antibiotics unasyn Lines Lines ok. Past Medical History reviewed Allergies: Coded Allergies: No Known Allergies (Unverified , 10/28/17) Objective . Vital Signs Date Time Temp Pulse Resp B/P (MAP) Pulse Ox O2 Delivery O2 Flow Rate FiO2 11/12/17 18:00 65 11/12/17 16:40 99.0 72 19 127/64 91 11/12/17 16:00 75 11/12/17 16:00 97.9 75 18 138/66 (90) 91 11/12/17 14:00 76 11/12/17 12:25 92 Nasal Cannula 4.00 11/12/17 12:00 63 11/12/17 12:00 98.7 63 13 141/63 (89) 95 11/12/17 10:00 72 11/12/17 08:00 81 11/12/17 08:00 98.5 80 22 117/55 (75) 92 11/12/17 06:00 80 11/12/17 04:00 64 11/12/17 04:00 64 15 141/63 (89) 91 11/12/17 02:00 64 11/12/17 00:00 97.6 68 17 118/60 (79) 89 11/12/17 00:00 68 11/11/17 22:00 69 11/11/17 20:34 97.3 78 28 129/69 92 11/11/17 20:00 67 11/11/17 20:00 97.3 67 17 143/61 (88) 96 11/11/17 19:25 97 Nasal Cannula 4.00 11/12/17 11/12/17 11/13/17 15:00 23:00 07:00 Intake Total 50 ml Balance 50 ml Blood Product IV Normal Saline Flush 50 ml . Laboratory Tests Test 11/11/17 13:09 11/11/17 17:30 11/11/17 21:18 11/12/17 04:15 White Blood Count 15.2 TH/MM3 14.3 TH/MM3 16.1 TH/MM3 Red Blood Count 1.38 MIL/MM3 2.99 MIL/MM3 2.76 MIL/MM3 Hemoglobin 4.2 GM/DL 8.9 GM/DL 8.3 GM/DL Hematocrit 13.1 % 26.0 % 24.0 % Mean Corpuscular Volume 94.8 FL 86.7 FL 86.9 FL Mean Corpuscular Hemoglobin 30.5 PG 29.7 PG 30.3 PG Mean Corpuscular Hemoglobin Concent 32.1 % 34.2 % 34.8 % Red Cell Distribution Width 14.3 % 15.9 % 15.5 % Platelet Count 151 TH/MM3 84 TH/MM3 89 TH/MM3 Mean Platelet Volume 11.3 FL 10.8 FL 11.2 FL Neutrophils (%) (Auto) 90.5 % 87.1 % 87.2 % Lymphocytes (%) (Auto) 4.1 % 6.9 % 7.2 % Monocytes (%) (Auto) 5.3 % 5.9 % 5.4 % Eosinophils (%) (Auto) 0.0 % 0.0 % 0.0 % Basophils (%) (Auto) 0.1 % 0.1 % 0.2 % Neutrophils # (Auto) 13.8 TH/MM3 12.5 TH/MM3 14.1 TH/MM3 Lymphocytes # (Auto) 0.6 TH/MM3 1.0 TH/MM3 1.2 TH/MM3 Monocytes # (Auto) 0.8 TH/MM3 0.8 TH/MM3 0.9 TH/MM3 Eosinophils # (Auto) 0.0 TH/MM3 0.0 TH/MM3 0.0 TH/MM3 Basophils # (Auto) 0.0 TH/MM3 0.0 TH/MM3 0.0 TH/MM3 CBC Comment AUTO DIFF AUTO DIFF AUTO DIFF Differential Total Cells Counted 100 100 100 Neutrophils % (Manual) 90 % 89 % 93 % Band Neutrophils % 1 % 4 % 3 % Lymphocytes % 5 % 4 % 2 % Monocytes % 1 % 2 % 2 % Neutrophils # (Manual) 14.3 TH/MM3 13.4 TH/MM3 15.5 TH/MM3 Metamyelocytes 3 % 1 % Differential Comment FINAL DIFF MANUAL FINAL DIFF MANUAL FINAL DIFF MANUAL Platelet Estimate NORMAL LOW LOW Platelet Morphology Comment NORMAL ENLARGED ENLARGED Basophilic Stippling FAINT FAINT Reticulocyte Count 2.5 % Absolute Reticulocyte Count 57.4 MIL/L Haptoglobin 123 MG/DL Nucleated Red Blood Cells 2 /100 WBC 5 /100 WBC Toxic Granulation Test 11/12/17 11:13 Hemoglobin 7.4 GM/DL Hematocrit 21.8 % Laboratory Tests Test 11/11/17 13:08 11/11/17 17:30 11/11/17 21:18 11/12/17 04:15 Blood Urea Nitrogen 64 MG/DL 69 MG/DL Creatinine 1.86 MG/DL 1.77 MG/DL Random Glucose 180 MG/DL 103 MG/DL Total Protein 4.2 GM/DL 4.5 GM/DL Albumin 2.0 GM/DL 2.7 GM/DL Calcium Level 7.1 MG/DL 7.4 MG/DL Phosphorus Level 6.3 MG/DL 5.6 MG/DL Magnesium Level 2.6 MG/DL 2.7 MG/DL Alkaline Phosphatase 47 U/L 40 U/L Aspartate Amino Transf (AST/SGOT) 56 U/L 63 U/L Alanine Aminotransferase (ALT/SGPT) 96 U/L 96 U/L Total Bilirubin 3.4 MG/DL 5.3 MG/DL Sodium Level 145 MEQ/L 146 MEQ/L Potassium Level 3.8 MEQ/L 3.6 MEQ/L Chloride Level 108 MEQ/L 110 MEQ/L Carbon Dioxide Level 16.5 MEQ/L 23.1 MEQ/L Anion Gap 21 MEQ/L 13 MEQ/L Estimat Glomerular Filtration Rate 36 ML/MIN 38 ML/MIN Protein Corrected Calcium 8.7 MG/DL 8.9 MG/DL Free Thyroxine 0.97 NG/DL Thyroid Stimulating Hormone 3rd Gen 0.625 uIU/ML Lactic Acid Level 6.6 mmol/L 3.2 mmol/L Lactate Dehydrogenase 476 U/L Imaging Last Impressions Chest X-Ray 11/09/17 0600 Signed Impressions: CONCLUSION: Bibasilar areas of consolidation and suspected effusions being worse on the lef t. Chest Ultrasound 11/07/17 0000 Signed Impressions: CONCLUSION: 1. Left-sided pleural effusion. Percutaneous Cholangiogram 11/01/17 0000 Signed Impressions: CONCLUSION: 1. Uncomplicated percutaneous cholecystostomy as above. Abdomen/Pelvis CT 5/25/18 0000 Signed Impressions: CONCLUSION: 1. Gallstones. There do appear to be areas of increased density within the com mon bile duct concerning for choledocholithiasis. 2. 4 mm nonobstructing left renal stone. 3. Sigmoid colon diverticula. 4. Bibasilar areas of consolidation or atelectasis being worse on the left wit h mild bilateral pleural effusions. Renal Ultrasound 10/31/17 Signed Impressions: CONCLUSION: 1. No hydronephrosis. 2. Increased cortical echogenicity consistent with medical renal disease. Head Magnetic Resonance Angiography 10/31/17 Signed Impressions: CONCLUSION: 1. Unremarkable MRA of the brain. Head CT 10/31/17 Signed Impressions: CONCLUSION: 1. Negative CT Head non contrast. 2. No evidence of acute infarct, hemorrhage, mass or edema. Brain MRI 10/31/17 Signed Impressions: CONCLUSION: 1. Senescent changes with minimal periventricular ischemic white matter demyel ination. 2. No acute abnormality. Specifically, no acute infarction, mass or hemorrhage . Gall Bladder Ultrasound 10/30/17 Signed Impressions: CONCLUSION: 1. Fatty infiltration of the liver. 2. Multiple stones in the gallbladder. No biliary tract obstruction. Extremity Arterial Study 10/28/17 Signed Impressions: CONCLUSION: 1. Abnormal ABIs, left greater than right. The left DAVID is significantly dimin ished at 0.14. Aorta w/Runoff CTA 10/28/17 Signed Impressions: Service Date/Time: Saturday, October 28, 2017 21:50 - CONCLUSION: 1. Acute occlusion of the left inflow with concern for short segment occlusion involving the distal right inflow. This raises concern for an embolic event. 2. Right lower extremity shows scattered disease throughout the common femoral artery, SFA and [id number] popliteal artery with three-vessel runoff to the foot. 3. Left lower extremity with reconstitution of the common femoral artery with diseased out flow and two vessel runoff to the foot as detailed above. 4. 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 5. Hepatic steatosis. 6. Cholelithiasis. Juanjose Mckeon Jr., MD Physical Exam GENERAL: NAD HEENT: Head atraumatic. No icterus. NECK: Supple without adenopathy. No swelling. LUNGS: Slight rhonchi. Good air movement. HEART: Bradycardic, No audible murmurs. ABDOMEN: Obese, distended, cholecystostomy tube in place with biliary drainage. light brown bile RUQ tenderness EXTREMITIES: No clubbing or cyanosis or edema. Left foot is currently warm. Purple discoloration of 5th toe SKIN: No diffuse rash. NEUROLOGIC: fully awake and alert. PSYCHIATRIC: Calm. Assessment & Plan Remarks IMPRESSION: 1. Severe sepsis due to E. coli very likely secondary to acute cholecystitis. Cholangitis. 2. Bacteriuria with less than 10,000 Enterococcus faecalis. 3. Pneumonia. Bilateral airspace disease on chest x-ray. 4. Leukocytosis secondary to infection. WBC worse today - steroids might contribute 5. Acute kidney disease likely resulting from sepsis. Renal function slightly worse today - 6. Acute respiratory failure. ? CHF; resolved Acute severe anemia - GI bleed ? - Hb dropped to 4.2 Worsening renal fnx RECOMMENDATIONS: Continue ampicillin/sulbactam 3 g IV every 6 hours. Follow cultures Follow clinically. Alexandria Barth RN, MD Nov 12, 2017 18:34
--- NOTE | 2017-11-12 18:54 | HHI.PR ---
Subjective Remarks 67 YOWM with COPD,Sepsis, ischemia of leg Developed RF, intubated Extubated On NC mild sob cough, occ sp No Fever HAd CT abd, retroperitoneal Hematoma Received 4 units PRBC Objective Vital Signs Vital Signs Date Time Temp Pulse Resp B/P (MAP) Pulse Ox O2 Delivery O2 Flow Rate FiO2 11/12/17 18:00 65 11/12/17 16:40 99.0 72 19 127/64 91 11/12/17 16:00 75 11/12/17 16:00 97.9 75 18 138/66 (90) 91 11/12/17 14:00 76 11/12/17 12:25 92 Nasal Cannula 4.00 11/12/17 12:00 63 11/12/17 12:00 98.7 63 13 141/63 (89) 95 11/12/17 10:00 72 11/12/17 08:00 81 11/12/17 08:00 98.5 80 22 117/55 (75) 92 11/12/17 06:00 80 11/12/17 04:00 64 11/12/17 04:00 64 15 141/63 (89) 91 11/12/17 02:00 64 11/12/17 00:00 97.6 68 17 118/60 (79) 89 11/12/17 00:00 68 11/11/17 22:00 69 11/11/17 20:34 97.3 78 28 129/69 92 11/11/17 20:00 67 11/11/17 20:00 97.3 67 17 143/61 (88) 96 11/11/17 19:25 97 Nasal Cannula 4.00 I/O 11/11/17 11/11/17 11/11/17 11/12/17 11/12/17 11/12/17 07:00 15:00 23:00 07:00 15:00 23:00 Intake Total 710 ml 25 ml 935 ml 1859 ml 50 ml Output Total 930 ml 800 ml Balance -220 ml 25 ml 935 ml 1059 ml 50 ml Intake Oral 360 ml IV Total 350 ml 85 ml 1434 ml Packed Cells 800 ml 400 ml Blood Product IV Normal Saline Flush 25 ml 50 ml 25 ml 50 ml Output Urine Total 900 ml 800 ml Drainage Total 30 ml # Bowel Movements 0 0 Result Diagram: 11/12/17 1113 11/12/17 0415 Objective Remarks GENERAL: WBWN WM, mild sob SKIN: Warm and dry. HEAD: Normocephalic. EYES: No scleral icterus. No injection or drainage. NECK: Supple, trachea midline. No JVD or lymphadenopathy. CARDIOVASCULAR: Regular rate and rhythm without murmurs, gallops, or rubs. RESPIRATORY: Breath sounds equal bilaterally. No accessory muscle use. GASTROINTESTINAL: Abdomen soft, non-tender, nondistended. MUSCULOSKELETAL: No cyanosis, or edema. Cold left leg BACK: Nontender without obvious deformity. No CVA tenderness. A/P Assessment and Plan IMPRESSION: 1. Sepsis. 2. Chronic obstructive pulmonary disease, mild exacerbation. 3. Left basilar infiltrate. 4. Urinary tract infection 5. Encephalopathy. 6. Cold left leg. 7. Thrombocytopenia. 8. VDRF--extubated 11/07 9. Severe anemia, retroperitoneal bleed PLAN: Cont Abx per ID Monitor renal functions Supplement 02 Encourage PO DW RN at BS Monitor H/H Dennis Johnson MD Nov 12, 2017 18:54
[2017-11-12 19:54] LABS: HEMOGLOBIN A1C 5.7 % (4.3-6.0)
[2017-11-13] VITALS (27 sets, daily range): BP systolic 109–146; BP diastolic 53–85; PULSE 65–90; RESP 13–31; TEMP 98.3–98.9; O2SAT 87–97
[2017-11-13 00:07] LABS: HEMATOCRIT 24.5 % (39.0-51.0); HEMOGLOBIN 8.4 GM/DL (13.0-17.0)
[2017-11-13] MEDS: ALBUMIN 25% INJ 50 ML IV SCH ×4 (03:02→20:20)
--- NOTE | 2017-11-13 03:36 | MB ---
cc: Richi Martins MD DATE: 11/12/2017 PHYSICIAN REQUESTING CONSULTATION: Dr. Niru Puckett REASON FOR CONSULTATION: Retroperitoneal hematoma. HISTORY OF PRESENT ILLNESS: The patient is a 67-year-old male with multiple medical issues including peripheral vascular disease, COPD, bacteremia and sepsis from cholangitis from choledocholithiasis, who developed hemorrhagic shock secondary to retroperitoneal bleed while on heparin drip. His heparin drip was held and the patient was resuscitated with blood products and was stabilized. Workup of bleeding source with a CT scan did show a large retroperitoneal hematoma lateral to the right colon and right kidney. This was not filled with gas, and his acute finding is no signs of infection. There are no signs of ongoing bleeding. The patient's hemoglobin is 8, and his vital signs are stable limits. The patient did undergo a cholecystostomy tube as ordered by the critical care team as well as under the guidance of Gastroenterology for choledocholithiasis for a biliary decompression. This is draining well, with benign-appearing bile from the cholecystostomy tube. General surgery was asked to see the patient and make recommendations on further treatment of his gallbladder or retroperitoneal hematoma. REVIEW OF SYSTEMS: A 12-point review of systems was conducted with the patient and is negative except for those pertinent positives mentioned above. PAST MEDICAL HISTORY: History of COPD, coronary artery disease. PAST SURGICAL HISTORY: Hiatal hernia repair remotely. ALLERGIES: NO KNOWN DRUG ALLERGIES. MEDICATIONS: Pepcid, Cardizem, Mucinex, [place], hydralazine, clonidine, prednisone. SOCIAL HISTORY: The patient quit using tobacco in 2018. No alcohol or illicit drug use. FAMILY HISTORY: Noncontributory. PHYSICAL EXAMINATION: VITAL SIGNS: Blood pressure 131/60, heart rate 65. GENERAL: The patient is a chronically and acutely ill, elderly male in bed in the intensive care unit. HEENT: Head is normocephalic, atraumatic. Pupils are round, reactive, accommodating to light. Sclerae is anicteric. Oral cavity is clear. Airway is patent. NECK: Supple. No JVD. LUNGS: Breath sounds present bilaterally. Nonlabored breathing pattern. HEART: Regular rate and rhythm. ABDOMEN: Soft. Some subjective tenderness on the right without peritonitis, rebound or guarding. No surgical scars. Biliary drain in the right upper quadrant with green, benign appearing bile. EXTREMITIES: Warm. Positive for some significant edema in the bilateral lower extremities, as well as presacral pitting edema. NEUROLOGIC: The patient is alert and oriented x3. He has a nonfocal peripheral exam. Cranial nerves 2-12 are grossly intact. LABORATORY DATA: Hemoglobin 8.4. IMAGING: CT scan of the abdomen shows retroperitoneal hematoma, 21 cm in greatest dimension. ASSESSMENT AND PLAN: The patient is a 67-year-old male with a spontaneous retroperitoneal hematoma, no evidence of active bleeding. There is no evidence that the retroperitoneal hematoma is causing any significant compression problem with any internal organs or on the skin, and there is no sign of an infection. Due to the patient being a very poor surgical candidate and very ill and due to this having no evidence of infection, I feel the best course at this point in time would be conservative management with observation of this hematoma and would not favor draining it at this time. I agree with the patient's biliary decompression with the cholecystostomy tube. The patient would become a better surgical candidate if he were able to tolerate ERCP or definitive GI management. He could potentially be a candidate for a laparoscopic cholecystectomy in the future, again, when he has significant improvement in his performance status. We will follow along with the patient. If the patient shows signs of clinical deterioration or signs of infection, I would recommend repeat scan of the hematoma, and if there are signs of infection, would favor less invasive drainage with IR as opposed to surgical drainage. Thank you very much for this consultation. MD RAFAEL Josue/JAMES , 01:04 AM , 03:35 AM
[2017-11-13 04:12] LABS: AUTOMATED NEUTROPHIL # 13.7 TH/MM3 (1.8-7.7); BASOPHIL % 0.1 % (0.0-2.0); HEMATOCRIT 22.4 % (39.0-51.0); HEMOGLOBIN 7.7 GM/DL (13.0-17.0); LYMPH % 3.8 % (9.0-44.0); LYMPHOCYTE # 0.6 TH/MM3 (1.0-4.8); MEAN CELL VOLUME 89.8 FL (80.0-100.0); MEAN CORPUSCULAR HEMOGLOBIN 30.8 PG (27.0-34.0); MEAN CORPUSCULAR HGB CONC 34.3 % (32.0-36.0); MEAN PLATELET VOLUME 11.2 FL (7.0-11.0); MONO % 3.9 % (0.0-8.0); MONOCYTE # 0.6 TH/MM3 (0-0.9); NEUT % 92.2 % (16.0-70.0); PLATELET COUNT 69 TH/MM3 (150-450); RED BLOOD COUNT 2.49 MIL/MM3 (4.50-5.90); RED CELL DISTRIBUTION WIDTH 14.9 % (11.6-17.2); WHITE BLOOD COUNT 14.8 TH/MM3 (4.0-11.0)
[2017-11-13 04:47] LABS: ALBUMIN 2.5 GM/DL (3.4-5.0); BICARBONATE 26.4 MEQ/L (21.0-32.0); CALCIUM-PROTEIN CORRECTED 8.4 MG/DL (8.5-10.1); CREATININE 1.56 MG/DL (0.60-1.30); TOTAL BILIRUBIN ADULT 5.2 MG/DL (0.2-1.0); TOTAL PROTEIN 4.5 GM/DL (6.4-8.2)
[2017-11-13] MEDS: LACTATED RINGER'S 1000 ML INJ 1,000 ML IV SCH ×2 (05:08→08:35)
[2017-11-13] MEDS: CHLORHEXIDINE GLUCONATE 2 % 1 PACK (2 CLOTHS) TOP SCH (05:08)
[2017-11-13] MEDS: methylPREDNISolone SOD SUCC 40 MG/1 ML VIAL IV PUSH SCH ×3 (05:09→20:28)
[2017-11-13] MEDS: hydrALAZINE HCL 25 MG TAB PO SCH ×3 (05:09→21:04)
[2017-11-13] MEDS: CHLORHEXIDINE 0.12% (ORAL KIT) 15 ML CUP MT SCH ×2 (08:00→20:00)
[2017-11-13] MEDS: ACETAMINOPHEN/HYDROcodone 325 MG/7.5 MG TAB PO PRN (08:34)
[2017-11-13] MEDS: SODIUM CHLORIDE 0.9% FLUSH 10 ML FLUSH IV FLUSH SCH ×2 (08:34→20:27)
[2017-11-13] MEDS: BUDESONIDE-FORMOTEROL 160/4.5 MCG INHALER INH SCH ×2 (08:34→20:29)
[2017-11-13] MEDS: DILTIAZEM-CD 240 MG CAP ER PO SCH (08:34)
[2017-11-13] MEDS: guaiFENesin E.R. 600 MG TAB PO SCH ×2 (08:34→20:27)
[2017-11-13] MEDS: FAMOTIDINE 20 MG TAB PO SCH ×2 (08:34→20:28)
--- NOTE | 2017-11-13 10:08 | HHI.CCPN ---
Subjective Remarks/Hospital Course 67-year-old male presents to the emergency department via EMS for evaluation of shortness of breath and pain and numbness to the left leg. Patient believes that he is shortness of breath is related to the pain in his leg. He cannot feel his leg from his groin down. He denies any history of the same. He does report history of COPD. He denies any known fevers or chills. He denies chest pain. Patient received 1 L normal saline bolus via EMS. Patient denies any history of bleeding or blood clots. No recent surgery or travel. No hemoptysis. No history of DVT/PE. He denies leg edema. Patient states the pain is 10/10 to the left leg. No exacerbating or alleviating factors. Moderate severity. 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 The right inflow is heavily diseased as well. The patient was evaluated by vascular surgeon software engineer web applications and was immediately started on heparin drip. SUBJ 10/29: Remains critically ill, encephalopathy. 4 out of 4 bottles positive for GNR. I will change Rocephin to Zosyn renally dosed to cover for Pseudomonas also. Continue azithromycin. Creatinine still elevated but slightly improved. WBC count slightly increased 17.2 now with 24% bands. Source of GNR sepsis could be either UTI or pneumonia. Will consult ID as well. Remains on IV heparin for acute left limb ischemia 10/30: platelets falling >50% again today. Cr still rising, but could be ATN/ contrast nephropathy. blood cultures growing e. coli by PCR, full speciation to follow. urine culture pending. discussed case with Dr. Lopez, will stop heparin , start argatroban and send HIT/CHARLEEN. denies complaints for me, but does have objective tenderness on palpation, RUQ. 10/31: Emergently intubated today a.m. by Dr. Puckett for worsening mental status, encephalopathy and worsening respiratory failure. Prior to intubation Dr. Puckett ' exam revealed right upper quadrant tenderness. Ultrasound of the gallbladder yesterday showed gallstones. Overnight Argatroban was supratherapeutic and was held, platelet count also dropped to 30,000, HIT screen is pending. Postintubation bilateral pupils are reactive but unequal. Will repeat CT of the head, CT abdomen pelvis. BUN 49/Creat 2.7, leukocytosis persisting 11/01: no improvements. ct abd/pelvis with evidence of possible choledocholithiasis. perc doug tube planned for this AM. on esmolol infusion for afib RVR. fio2 increased to 70%. 11/02: Sodium bicarbonate infusion continued per nephrology in the setting of rhabdomyolysis serial creatinine kinase pending. Cholecystostomy drain placement 100 cc overnight. Continued thrombocytopenia, CBC, serotonin release assay pending. Plan for reinitiation of heparin awaiting GI consultation for possible invasive procedures prior to restarting heparin. Patient sinus rhythm with occasional PAC's. 11/03: No acute events overnight. Sodium bicarbonate infusion discontinued this a.m. had any improved this a.m.. Chest x-ray showed worsening consolidation, FiO2 requirements were increased to 65% during the night. CPAP trials on hold currently. Biliary drainage from cholecystostomy tube revealing gram-negative rods. The patient continues on antibiotics. Bilateral dorsalis pedis pulses monophasic signals by Doppler. Heparin infusion reinitiated. 11/04: Sodium bicarbonate infusion discontinued at 7 AM yesterday. Chest x-ray worsening consolidation versus pleural effusions. FiO2 slightly decreased to 60 %, ABG improving. Pending quantification via ultrasound of pleural fluid in am. Lasix 40mg x1 additional dose provided today . PPN discontinued discussed with Dr. Colon tube feeds initiated at [facility]. Dietary consult ordered. 11/05: Afebrile. Patient tolerating tube feeds advanced to goal rate of 55 cc/ hr. chest x-ray with slight improvement FiO2 decreased to 55% ABG pending. Initiation of CPAP trial to be attempted today. 11/06: Late entry note. Patient seen at 628am. Patient was started on CPAP and continues on CPAP greater than 10 hours. Patient following commands, currently on Precedex infusion. 11/07: Patient remained on CPAP trials for approximately 12 hours yesterday and discontinued because of agitation. CPAP trials reinitiated this a.m. Patient complaint of sore throat Lortab ordered. Patient continues on Precedex for ventilator weaning process. Chest x-ray still shows pulmonary edema, additional dose Lasix 401 dose given this a.m.. When infusion continued, monophasic Doppler signals bilateral dorsalis pedal pulses noted. 11/08: Afebrile . Patient successfully extubated yesterday. Remains on O2 at 4 L nasal cannula O2 saturation 94-95%. Patient continues on heparin infusion, she was noted to have 9 BMs last evening plan for serial H&H's concern for possible stool with occult blood. Repeat stool for occult blood. Plan for possible bedside thoracentesis ,if respiratory requirements increase, currently on O2 4 L via nasal cannula in no apparent distress. 11/11 Late entry, notified of re-consult at 17:[address] Johnson, saw patient and immediately placed L IJ CVL because patient had ripped out an IV and had insufficient peripheral IV access given clinical condition. RN states patient had Hgb 7.5 this morning. Trend was unusual with Hb 8.3--> 12.5 (without transfusion)-->7.5 and lab recommended repeat. Repeat was drawn and was 4.2. Meanwhile, while awaiting re-draw patient became hypotensive, MAP down in the 40s, and was given albumin 25 gram IV. Now he has received 1 unit PRBC and BP improved to 120s/60s. Getting 2 additional units of PRBC stat. Nurse states heparin has been off since 12:30. Sending stat coags/fibrinogen. Patient denies nausea or vomiting. He has some right-sided abdominal pain. There is dark brown drainage from cholecystostomy tube. He has not had a bowel movement in 48 hours. No obvious evidence of GI bleeding. CT abdomen and pelvis has been ordered as "urgent", now giving additional PRBC and then will obtain stat. Gastroenterology has been following and I have notified them of the anemia, though this does not appear to be GI source at this time. 11/12 CT last night showed large retroperitoneal hematoma. Transfused total of 3 units PRBC yest evening. Hgb now 8.3. Coags/fibrinogen in acceptable range this morning, heparin drip off. Patient states much less abdominal pain today. He is alert and oriented now. Coughing, O2 requirement up to 6 L NC, afebrile. Subjective: 11/13 Had some hemoptysis yesterday. CT with bilateral pleural effusions/ LLL atelectasis vs infiltrate. Now on 8 L SM, tachypneic with more labored breathing today. Edematous, will diurese. He is alert and capacitated currently and agrees to L pleural drainage. Transfused 1 unit PRBC yesterday for Hgb 7.4. He still has some Right sided abdominal pain Objective Vital Signs Date Time Temp Pulse Resp B/P (MAP) Pulse Ox O2 Delivery O2 Flow Rate FiO2 11/13/17 06:00 79 11/13/17 04:00 98.3 17 138/80 (99) 88 11/13/17 00:47 Simple Mask 8.00 Intake and Output 11/13/17 11/13/17 11/14/17 08:00 16:00 00:00 Intake Total 3469 ml Output Total 870 ml Balance 2599 ml Result Diagram: 11/13/17 0350 11/13/17 0350 Imaging Current Medications Medications (Trade) Dose Ordered Sig/Olesya Route Start Time Stop Time Status Last Admin (NS Flush) 2 ml UNSCH PRN IV FLUSH 10/28/17 22:15 (NS Flush) 2 ml BID IV FLUSH 10/29/17 09:00 11/07/17 19:41 (Tylenol) 650 mg Q6H PRN PO 10/28/17 22:15 (Dilaudid Pf Inj) 1 mg Q4H PRN IV 10/28/17 22:30 11/07/17 05:15 (Zofran Inj) 4 mg Q6H PRN IV PUSH 10/28/17 22:15 (Restoril) 15 mg HS PRN PO 10/28/17 22:15 Future Hold (Duoneb Neb) 1 ampule Q2HR NEB PRN INH 10/28/17 22:15 11/08/17 08:15 ([facility] Nursing Information) 1 [id number] XX 10/28/17 22:15 10/28/17 22:15 (Chlorhexidine 2% Cloth) Taper DAILY@04 TOP 10/29/17 04:00 10/25/18 03:59 11/08/17 04:00 (Chlorhexidine 2% Cloth) 3 pack UNSCH PRN TOP 10/28/17 22:15 (Elvira-Colace) 1 tab BID PO 10/29/17 09:00 11/07/17 08:21 (Milk Of Magnesia Liq) 30 ml Q12H PRN PO 10/28/17 22:15 (Senokot) 17.2 mg Q12H PRN PO 10/28/17 22:15 (Dulcolax Supp) 10 mg DAILY PRN RECTAL 10/28/17 22:15 (Lactulose Liq) 30 ml DAILY PRN PO 10/28/17 22:15 (SoluMEDROL INJ) 40 mg Q6HR IV PUSH 10/29/17 00:00 11/08/17 05:11 (Cardizem Cd) 240 mg DAILY PO 10/29/17 09:00 Future Hold 10/30/17 09:02 (Aspirin Chew) 81 mg DAILY CHEW 10/29/17 11:45 Future hold 11/07/17 08:21 (Brethine Inj) 1 mg UNSCH PRN SQ 10/31/17 06:15 (Peridex 0.12% Liq) 15 ml BID@08,20 MT 10/31/17 08:00 11/07/17 08:21 (Apresoline Inj) 20 mg Q4H PRN IV PUSH 11/02/17 14:00 (Catapres) 0.1 mg Q6H PRN PO 11/02/17 23:45 11/04/17 02:35 Heparin Sodium/ Dextrose 250 ml @ 12 mls/hr TITRATE PRN IV 11/03/17 07:00 11/07/17 23:52 (Apresoline) 25 mg Q8HR PO 11/03/17 14:00 11/08/17 05:11 (Lasix Inj) 40 mg DAILY IV PUSH 11/03/17 13:00 11/07/17 08:21 (Trandate) 100 mg Q12HR PO 11/04/17 21:00 11/07/17 19:41 (Mucomyst 20% Neb) 2 ml Q6HR NEB NEB 11/05/17 10:00 11/08/17 08:15 Ampicillin Sodium/ Sulbactam Sodium 3 gm/Sodium Chloride 100 ml @ 200 mls/hr Q6H IV 11/05/17 20:00 11/08/17 01:24 (Pepcid Inj) 20 mg Q12HR IV PUSH 11/06/17 21:00 11/07/17 19:41 (White 7.5-325 Mg) 1 tab Q6H PRN PO 11/07/17 08:00 11/07/17 09:06 Last Impressions Chest X-Ray 11/07/17 0600 Signed Impressions: CONCLUSION: No appreciable change. Percutaneous Cholangiogram 5/25/18 0000 Signed Impressions: CONCLUSION: 1. Uncomplicated percutaneous cholecystostomy as above. Abdomen/Pelvis CT 11/01/17 Signed Impressions: CONCLUSION: 1. Gallstones. There do appear to be areas of increased density within the com mon bile duct concerning for choledocholithiasis. 2. 4 mm nonobstructing left renal stone. 3. Sigmoid colon diverticula. 4. Bibasilar areas of consolidation or atelectasis being worse on the left wit h mild bilateral pleural effusions. Renal Ultrasound 10/31/17 Signed Impressions: CONCLUSION: 1. No hydronephrosis. 2. Increased cortical echogenicity consistent with medical renal disease. Head Magnetic Resonance Angiography 10/31/17 Signed Impressions: CONCLUSION: 1. Unremarkable MRA of the brain. Head CT 10/31/17 Signed Impressions: CONCLUSION: 1. Negative CT Head non contrast. 2. No evidence of acute infarct, hemorrhage, mass or edema. Brain MRI 10/31/17 Signed Impressions: CONCLUSION: 1. Senescent changes with minimal periventricular ischemic white matter demyel ination. 2. No acute abnormality. Specifically, no acute infarction, mass or hemorrhage . Gall Bladder Ultrasound 10/30/17 Signed Impressions: CONCLUSION: 1. Fatty infiltration of the liver. 2. Multiple stones in the gallbladder. No biliary tract obstruction. Extremity Arterial Study 10/28/17 Signed Impressions: CONCLUSION: 1. Abnormal ABIs, left greater than right. The left DAVID is significantly dimin ished at 0.14. Aorta w/Runoff CTA 10/28/17 Signed Impressions: Service Date/Time: Saturday, October 28, 2017 21:50 - CONCLUSION: 1. Acute occlusion of the left inflow with concern for short segment occlusion involving the distal right inflow. This raises concern for an embolic event. 2. Right lower extremity shows scattered disease throughout the common femoral artery, SFA and [id number] popliteal artery with three-vessel runoff to the foot. 3. Left lower extremity with reconstitution of the common femoral artery with diseased out flow and two vessel runoff to the foot as detailed above. 4. 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 5. Hepatic steatosis. 6. Cholelithiasis. Juanjose Mckeon Jr., MD Last Impressions Chest X-Ray 11/03/17 0600 Signed Impressions: CONCLUSION: Worsening parenchymal consolidation and small effusions at each lung base. Percutaneous Cholangiogram 11/01/17 Signed Impressions: CONCLUSION: 1. Uncomplicated percutaneous cholecystostomy as above. Abdomen/Pelvis CT 11/01/17 Signed Impressions: CONCLUSION: 1. Gallstones. There do appear to be areas of increased density within the com mon bile duct concerning for choledocholithiasis. 2. 4 mm nonobstructing left renal stone. 3. Sigmoid colon diverticula. 4. Bibasilar areas of consolidation or atelectasis being worse on the left wit h mild bilateral pleural effusions. Renal Ultrasound 10/31/17 Signed Impressions: CONCLUSION: 1. No hydronephrosis. 2. Increased cortical echogenicity consistent with medical renal disease. Head Magnetic Resonance Angiography 10/31/17 Signed Impressions: CONCLUSION: 1. Unremarkable MRA of the brain. Head CT 10/31/17 Signed Impressions: CONCLUSION: 1. Negative CT Head non contrast. 2. No evidence of acute infarct, hemorrhage, mass or edema. Brain MRI 10/31/17 Signed Impressions: CONCLUSION: 1. Senescent changes with minimal periventricular ischemic white matter demyel ination. 2. No acute abnormality. Specifically, no acute infarction, mass or hemorrhage . Gall Bladder Ultrasound 10/30/17 Signed Impressions: CONCLUSION: 1. Fatty infiltration of the liver. 2. Multiple stones in the gallbladder. No biliary tract obstruction. Extremity Arterial Study 10/28/17 Signed Impressions: CONCLUSION: 1. Abnormal ABIs, left greater than right. The left DAVID is significantly dimin ished at 0.14. Aorta w/Runoff CTA 10/28/17 Signed Impressions: Service Date/Time: Saturday, October 28, 2017 21:50 - CONCLUSION: 1. Acute occlusion of the left inflow with concern for short segment occlusion involving the distal right inflow. This raises concern for an embolic event. 2. Right lower extremity shows scattered disease throughout the common femoral artery, SFA and [id number] popliteal artery with three-vessel runoff to the foot. 3. Left lower extremity with reconstitution of the common femoral artery with diseased out flow and two vessel runoff to the foot as detailed above. 4. 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 5. Hepatic steatosis. 6. Cholelithiasis. Juanjose Mckeon Jr., MD Last Impressions Percutaneous Cholangiogram 11/01/17 Signed Impressions: CONCLUSION: 1. Uncomplicated percutaneous cholecystostomy as above. Abdomen/Pelvis CT 11/01/17 Signed Impressions: CONCLUSION: 1. Gallstones. There do appear to be areas of increased density within the com mon bile duct concerning for choledocholithiasis. 2. 4 mm nonobstructing left renal stone. 3. Sigmoid colon diverticula. 4. Bibasilar areas of consolidation or atelectasis being worse on the left wit h mild bilateral pleural effusions. Renal Ultrasound 10/31/17 Signed Impressions: CONCLUSION: 1. No hydronephrosis. 2. Increased cortical echogenicity consistent with medical renal disease. Head Magnetic Resonance Angiography 10/31/17 Signed Impressions: CONCLUSION: 1. Unremarkable MRA of the brain. Head CT 10/31/17 Signed Impressions: CONCLUSION: 1. Negative CT Head non contrast. 2. No evidence of acute infarct, hemorrhage, mass or edema. Chest X-Ray 10/31/17 Signed Impressions: CONCLUSION: Satisfactory position of endotracheal and nasogastric tubes. Increasing airspace disease and bilateral effusions. Brain MRI 10/31/17 Signed Impressions: CONCLUSION: 1. Senescent changes with minimal periventricular ischemic white matter demyel ination. 2. No acute abnormality. Specifically, no acute infarction, mass or hemorrhage . Gall Bladder Ultrasound 10/30/17 Signed Impressions: CONCLUSION: 1. Fatty infiltration of the liver. 2. Multiple stones in the gallbladder. No biliary tract obstruction. Extremity Arterial Study 10/28/17 Signed Impressions: CONCLUSION: 1. Abnormal ABIs, left greater than right. The left DAVID is significantly dimin ished at 0.14. Aorta w/Runoff CTA 10/28/17 Signed Impressions: Service Date/Time: Saturday, October 28, 2017 21:50 - CONCLUSION: 1. Acute occlusion of the left inflow with concern for short segment occlusion involving the distal right inflow. This raises concern for an embolic event. 2. Right lower extremity shows scattered disease throughout the common femoral artery, SFA and [id number] popliteal artery with three-vessel runoff to the foot. 3. Left lower extremity with reconstitution of the common femoral artery with diseased out flow and two vessel runoff to the foot as detailed above. 4. 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 5. Hepatic steatosis. 6. Cholelithiasis. Juanjose Mckeon Jr., MD Last 24 hours Impressions Chest X-Ray 10/28/172010 Signed Impressions: Service Date/Time: Saturday, October 28, 2017 20:20 - CONCLUSION: Left lower lobe infiltrate. Mild cardiomegaly. Juanjose Mckeon Jr., MD Objective Remarks GENERAL: This is a well-developed undernourished middle-aged male, sitting up in bed, alert and conversant now. SKIN: Warm and dry. HEAD: Normocephalic. ENT: No scleral icterus. No injection or drainage. Pupils are now equal at 3mm, reactive. On simple mask. NECK: Supple, trachea midline. No JVD. CARDIOVASCULAR: Regular, rate in the 70s. No murmurs rubs or gallops. RESPIRATORY: Tachypneic with labored breathing. Coarse breath sounds bilaterally , diminished bibasilar. GASTROINTESTINAL: Abdomen soft, mildly distended, tender in right abdomen but no rebound or guarding, less tender compared with yesterday., bowel sounds hypoactive. Cholecystostomy tube is in place draining dark brown fluid. No flank hematoma. : Peña in place with dark yellow urine output MUSCULOSKELETAL: No cyanosis, 1+ bipedal edema. Bilateral DP with Doppler pulses. Discoloration of left fifth toe. Bruising of right distal forearm and ecchymosis finger tips of right hand with 1+ right hand edema, palpable radial pulse and good pulper operator. NEURO EXAM: Eyes open, makes eye contact. Oriented to person, place, year. Moves all extremities with no focal deficit A/P Assessment and Plan ASSESSMENT/PLAN: NEURO: Acute metabolic encephalopathy, improved -Lortab as needed for pain -10/31 CT of the head- negative -10/31MRIminimal periventricular ischemic white matter change no acute abnormality RESP: COPD exacerbation, resolved Left lower lobe pneumonia, resolved ARDS, resolved Respiratory distress Bilateral pleural effusions. -Emergently intubated and placed on mechanical ventilation 10/31/2017. Extubated 11/07/17. -Now increased O2 requirement, labored breathing. L pigtail chest tube placed with initially 600 mL of serosanginous output. Respiratory status improved. F/u pleural fluid studies. Continue Symbicort 160/4.52 puffs inhaled every 12 hours Incentive spirometry every hour awake Wean Solumedrol to [address] Aneja following CVS: Hemorrhagic shock, resolved. Secondary to R retroperitoneal hematoma Lactic acidemia Acute on chronic left limb ischemia, improved Paroxysmal atrial fibrillation HTN -CTA showed severe aorto-iliac occlusive disease with left iliac thrombosis. Dr. Lopez evaluated, may need ax-fem bypass at some point but not during this hospitalization. -No longer a candidate for anticoagulation, ASA/Plavix recommended when patient stabilized. Now off antiplatelets both due to large RP bleed and now planned ERCP. -Significant calcifications and peripheral vascular disease -2D echo: EF 50%, no significant valvular lesions. left sided pleural effusion -HIT screen negative. CHARLEEN -negative kvo ivf. GI Acute hepatic dysfunction Hyperbilirubinemia Transaminitis Acute Choledocholithiasis R retroperitoneal hematoma -Trend LFTs, gallbladder ultrasound showed multiple gallstones -Repeat CT abdomen/pelvis 11/01: c/w choledocholithiasis - GI consult. 11/02-Dr. Camar[place], - Perc cholecystostomy tube placed 11/01 by IR. -Eventual cholecystectomy when stabilized. Dr. Martins has seen. -GI planning tentatively for ERCP on Wednesday 10/18, must be off antiplatelet therapy x5 days per GI. Discussed 11/13. -Acute hemorrhagic shock on 11/11 while on heparin drip, transfused [address] with large R retroperitoneal hematoma. Manage medically, IR drain if e/o infection. Gen Surgery following. FEN/RNEAL Acute kidney injury Acute metabolic acidosis Initial DEBORA on admission improve Lasix 40 mg IV q12. Nephrology has signed off. ID E COLI bacteremia/severe sepsis, resolved Enterococcus in the urine: possible colonization vs. UTI. Acute Choledocholithiasis/ Cholangitis Biliary fluid gram-negative rods Cholecystostomy placed 11/01. Continue antibiotics per ID: Unasyn HEME: Acute blood loss anemia acute thrombocytopenia: Initially consumptive secondary to sepsis earlier during admission. Now consumptive secondary to acute blood loss. Transfuse as indicated for platelet count less than 50 or if her current episode of bleeding and need for large-volume transfusion - HIT negative. CHARLEEN negative 10/30. Heparin on hold since 12: 30 11/11. Monitor coags, transfuse blood products as indicated. DVT GI prophylaxis -Vickey's and SCDs -Heparin infusion on hold due to bleeding. ACCESS: . Placed emergent left IJ central venous line 11/11 #3 Patient states he agrees to reintubation if needed. In the setting of pulseless arrest he would not want CPR, shocks, intubation, ACLS drugs. Change CODE STATUS is alternate code intubation only. Patient's sister states that he has designated her as healthcare surrogate. He has advanced directives. Palliative care consulted and held meeting with sister today. I updated patient and his sister. Level 3 f/u. Niru Puckett MD Nov 13, 2017 10:08
[2017-11-13] MEDS: FUROSEMIDE 40 MG/4 ML VIAL IV PUSH SCH ×2 (10:30→20:26)
--- NOTE | 2017-11-13 12:07 | PD.PROCEDR ---
Procedure Note Procedure Procedure: Left pigtail chest tube placement Indication: Left pleural effusion Details of procedure: Patient is capacitated for medical decision-making. Informed consent was obtained after discussion of risks, benefits, alternatives. Was also discussed with patient's sister who is his healthcare surrogate. The patient was positioned upright per nursing staff. Ultrasound was used to visualize fluid pocket. The chest wall was cleaned with ChloraPrep x3. Regional sterile drapes were applied. 1% lidocaine was used for local anesthesia and injected into the subcutaneous and deep muscle tissues. An introducer needle was advanced over posterior rib under direct ultrasound guidance until bloody pleural fluid was aspirated. Wire was advanced. A 3mm skin incision was made with a scalpel blade. 8 [place] pigtail catheter was advanced over the wire. Bloody pleural fluid was aspirated and sent for pleural fluid studies. Catheter was connected to Pleur-evac at -40 cm suction. There was no airleak. There was 500 mL of serosanguineous fluid output initially. Estimated blood loss: <5 ml Complications: None. Stat chest x-ray demonstrates decreased size of effusion without complication. Niru Puckett MD Nov 13, 2017 12:07
--- NOTE | 2017-11-13 12:45 | RADRPT ---
EXAM DATE: 11/13/2017 12:38 PM EDT AGE/SEX: 67 years / Male INDICATIONS: Status post chest tube on left side. CLINICAL DATA: This is the patient's subsequent encounter. Patient reports that signs and symptoms h ave been present for 3 days and indicates a pain score of 0/10. MEDICAL/SURGICAL HISTORY: Chronic obstructive pulmonary disease. None. [place] [facility] [place] [facility] [place]. . FINDINGS: There is a left chest tube in place. A pneumothorax is not seen. There is minimal increased density a t the lateral left base which may represent some minimal residual pleural fluid. There is persistent increased density at the right base. There is now silhouetting of the right hemidiaphragm. The heart size is normal. There does appear to be tubing overlying the left upper chest. This may be something on the patient. CONCLUSION: Left chest tube without evidence of pneumothorax. There appears to be minimal residual pleural fluid seen at the lateral left base. Worsening right base atelectasis, consolidation, and/or effusion. Electronically signed by: Phi Tineo MD 11/13/2017 12:44 PM EDT
[2017-11-13] MEDS: NYSTATIN SUSP 500,000 U/5 ML CUP SWISH-SWAL SCH ×3 (13:00→20:27)
[2017-11-13 13:24] LABS: TOTAL PROTEIN,PLEURAL FLUID 0.8 GM/DL
[2017-11-13 13:43] LABS: PLEURAL FLUID HISTIOCYTES 8 %; PLEURAL FLUID LYMPHS 68 %; PLEURAL FLUID MESOTHELIAL 12 %; PLEURAL FLUID POLYS (SEGS) 12 %; PLEURAL FLUID RBC 5940 /MM3 (0-0); PLEURAL FLUID WBC 10 /MM3 (0-10)
[2017-11-13 14:40] LABS: HEMATOCRIT 21.5 % (39.0-51.0); HEMOGLOBIN 7.3 GM/DL (13.0-17.0)
--- NOTE | 2017-11-13 15:23 | PD.CONS ---
Consult Service Palliative Care Consult Requested By Dr. Puckett. Primary Care Physician Unknown Reason for Consultation a. To assist with evaluation and management of symptoms including: Shortness of breath, pain, debility. b. To assist medical decision maker(s) with: better understanding of current medical conditions; weighing benefits/burdens of medical treatment options; making medical treatment decisions. . HPI History of Present Illness Mr. Bates is a 67-year-old male with a medical history significant for COPD, hypertension, CAD and peripheral vascular disease. Patient presented to ED via EMS on 10/28/17 for evaluation of shortness of breath and pain to his left leg. On exam, no pulses to bilateral lower extremities noted with the exception of femoral pulse in the left leg. Bilateral lower extremities were noted cold with cyanotic toes. ED laboratory workup revealing WBC 13.3, hemoglobin 13.9, platelet count 125. Lactic acid of 7.4. BUN/creatinine 29/2.85. Chest x-ray revealing left lower lobe infiltrate, mild cardiomegaly. Patient was admitted for further monitoring and management. Vascular surgeon Dr. Lopez consulted. Aorta w/runoff CTA revealed severe aorto -iliac occlusive disease with left iliac thrombosis with PROJECT ACCOUNTANT reconstitution and significant calcification. Vascular surgery recommended optimization of medical management before any non-emergent revascularization is attempted. Infectious disease, Dr. Sinha consulted on 10/29/17 secondary to gram- negative sepsis. Patient was continued on antibiotic treatment. Pulmonology, Dr. Johnson consulted on 10/29/17 for COPD and pulmonary management. Patient with long-standing history of smoking for the past 40 years. History of COPD, not oxygen dependent at home. Chest x-ray revealing left lung infiltrate. Clinical course complicated by acute respiratory failure requiring endotracheal intubation mechanical ventilation on 10/31/17. Clinical course further complicated by acute on chronic renal failure. Nephrology, Dr. Uribe consulted on 10/31/17. Patient with worsening liver function, CT of abdomen revealing gallstones. Gastroenterology consulted on 11/01, patient underwent biliary drain placement by IR. Clinical course further complicated by peritoneal hematoma while on heparin, developing hemorrhagic shock. General surgery Dr. Martins consulted on 11/13/17. No signs of acute bleeding or evidence that the retroperitoneal hematoma is causing any significant compression, no signs of infection. Patient edema very poor surgical candidate secondary to acute illness and multiple comorbidities. Conservative management with observation of the hematoma was recommended. Palliative care has been consulted to establish relationship with patient and family and for goals of care clarification given guarded prognosis. Dual visit with MARTINA Oneill. Patient seen and medical ICU, status post left-sided pigtail chest tube secondary to pleural effusion. Patient alert and oriented x self, place and situation. Currently on 8 L via simple mask, oxygen saturation in the low 90s. Patient endorsing that he respiratory condition has somewhat improved since chest tube placement. Patient afebrile, stable hemodynamically. Laboratory workup today revealing persistent leukocytosis 14.8 , Hgb 7.7 status post 4 packs of red blood cells transfusion from 11/11 to . Sodium 147, potassium 3.8, renal function remains affected BUN/creatinine 60/1.56. Liver enzymes remain elevated. Patient's sister Jennifer/HCS at bedside. In this first visit, reviewed the role of palliative care in advanced illness in regards to symptom management as well as support surrounding goals of care and advance care planning. Patient and sister receptive to my visit. Obtained patient's past medical history and psychosocial history. Reviewed events leading to this hospitalization, complicated clinical course and current medical management. Share concerns of patient's current clinical condition and high risk for further complications, continued decline and . Sister verbalized feeling overwhelmed with patient 's condition. She does experience the of her daughter approximately 2 months ago in addition to her own multiple medical issues. CODE STATUS confirmed as intubation only. Goal of treatment is to continue aggressive management short of no cardiac resuscitation. Sister wishing to allow a few more days for clinical improvement with the understanding that patient's clinical condition remains critical. Sister receptive to palliative care follow -ups. Verbalized appreciation for visit today. Receptive to palliative care geriatric social worker follow-up and shear helper for psychosocial and spiritual support. Case discussed with Dr. Puckett and bedside RN. . Function/Cognitive Trajectory Patient residing independently prior to this hospitalization. Independent with ADLs. No cognitive decline reported. . Review of Systems Constitutional: COMPLAINS OF: Fatigue, Generalized weakness, DENIES: Fever Eyes: DENIES: Eye inflammation Ears, nose, mouth, throat: DENIES: Hearing loss, Nasal discharge, Running Nose , Epistaxis Respiratory: COMPLAINS OF: Hemoptysis, Shortness of breath, DENIES: Cough Cardiovascular: COMPLAINS OF: Dyspnea on Exertion, Lower Extremity Edema, DENIES: Chest pain Gastrointestinal: DENIES: Bloody stools, Vomiting, Difficulty Swallowing Genitourinary: DENIES: Hematuria Musculoskeletal: DENIES: Joint Swelling Integumentary: DENIES: Rash, Tumors Hematologic/Lymphatics: COMPLAINS OF: Bruising, History of transfusions Immunologic/Allergic: DENIES: Eczema Neurologic: DENIES: Seizures, Speech Problems, Tremor, Poor Balance Psychiatric: COMPLAINS OF: Anxiety, Confusion, DENIES: Agitation Past Family Social History Coded Allergies: No Known Allergies (Unverified , 10/28/17) Past Medical History COPD Hypertension CAD Peripheral vascular disease GERD Tobacco dependence . Past Surgical History No known surgery . Reported Medications Omeprazole 40 Mg Cap 40 Mg DAILY Losartan (Losartan Potassium) 50 Mg Tab 50 Mg PO DAILY Diltiazem (Diltiazem HCl) 120 Mg Tab 240 Mg PO DAILY . Current Medications Medications (Trade) Dose Ordered Sig/Olesya Route Start Time Stop Time Status Last Admin (NS Flush) 2 ml UNSCH PRN IV FLUSH 10/28/17 22:15 (NS Flush) 2 ml BID IV FLUSH 10/29/17 09:00 11/13/17 08:34 (Tylenol) 650 mg Q6H PRN PO 10/28/17 22:15 (Dilaudid Pf Inj) 1 mg Q4H PRN IV 10/28/17 22:30 11/07/17 05:15 (Zofran Inj) 4 mg Q6H PRN IV PUSH 10/28/17 22:15 (Restoril) 15 mg HS PRN PO 10/28/17 22:15 Future Hold (Duoneb Neb) 1 ampule Q2HR NEB PRN INH 10/28/17 22:15 11/10/17 19:58 ([facility]) 1 Q361D XX 10/28/17 22:15 10/28/17 22:15 (Chlorhexidine 2% Cloth) Taper DAILY@04 TOP 10/29/17 04:00 10/25/18 03:59 11/13/17 05:08 (Chlorhexidine 2% Cloth) 3 pack UNSCH PRN TOP 10/28/17 22:15 (Elvira-Colace) 1 tab BID PO 10/29/17 09:00 Future Hold 11/07/17 08:21 (Milk Of Magnesia Liq) 30 ml Q12H PRN PO 10/28/17 22:15 (Senokot) 17.2 mg Q12H PRN PO 10/28/17 22:15 (Dulcolax Supp) 10 mg DAILY PRN RECTAL 10/28/17 22:15 (Lactulose Liq) 30 ml DAILY PRN PO 10/28/17 22:15 (Aspirin Chew) 81 mg DAILY CHEW 10/29/17 11:45 Future Hold 11/11/17 10:10 (Brethine Inj) 1 mg UNSCH PRN SQ 10/31/17 06:15 (Peridex 0.12% Liq) 15 ml BID@08,20 MT 10/31/17 08:00 11/13/17 08:00 (Apresoline Inj) 20 mg Q4H PRN IV PUSH 11/02/17 14:00 (Catapres) 0.1 mg Q6H PRN PO 11/02/17 23:45 11/04/17 02:35 Heparin Sodium/ Dextrose 250 ml @ 12 mls/hr TITRATE PRN IV 11/03/17 07:00 Future Hold 11/11/17 05:14 (Apresoline) 25 mg Q8HR PO 11/03/17 14:00 11/13/17 13:26 (Lasix Inj) 40 mg DAILY IV PUSH 11/03/17 13:00 Future Hold 11/11/17 10:11 (Trandate) 100 mg Q12HR PO 11/04/17 21:00 Future Hold 11/07/17 19:41 ([place]sor 7.5-325 Mg) 1 tab Q6H PRN PO 11/07/17 08:00 11/13/17 08:34 (Cardizem Cd) 240 mg DAILY PO 11/08/17 09:30 11/13/17 08:34 Potassium Chloride 100 ml @ 50 mls/hr Q2H PRN IV 11/10/17 11:00 Potassium Chloride 100 ml @ 50 mls/hr Q2H PRN IV 11/10/17 11:00 (K-Lyte Cl Eff) 50 meq UNSCH PRN PO 11/10/17 11:00 Potassium Chloride 100 ml @ 25 mls/hr UNSCH PRN IV 11/10/17 11:00 Potassium Chloride 100 ml @ 50 mls/hr Q2H PRN IV 11/10/17 11:00 Magnesium Sulfate 4 gm/Sodium Chloride 100 ml @ 50 mls/hr UNSCH PRN IV 11/10/17 11:00 (Mag-Ox) 800 mg UNSCH PRN PO 11/10/17 11:00 Magnesium Sulfate 2 gm/Sodium Chloride 100 ml @ 50 mls/hr UNSCH PRN IV 11/10/17 11:00 (K-Phos) 2,000 mg Q4H PRN PO 11/10/17 11:00 Sodium Phosphate 30 mmol/Sodium Chloride 250 ml @ 42 mls/hr UNSCH PRN IV 11/10/17 11:00 (K-Phos) 2,000 mg UNSCH PRN PO/TUBE 11/10/17 11:00 Potassium Phosphate 30 mmol/ Sodium Chloride 260 ml @ 42 mls/hr UNSCH PRN IV 11/10/17 11:00 (Mucinex Er) 600 mg BID PO 11/10/17 11:00 11/13/17 08:34 (Symbicort 160-4.5 Mcg Inh) 2 puff Q12HR INH 11/10/17 21:00 11/13/17 08:34 Albumin Human 50 ml @ 60 mls/hr Q6H IV 11/11/17 13:00 11/13/17 13:00 (Tylenol) 650 mg Q4H PRN PO 11/11/17 12:15 (Benadryl) 25 mg Q4H PRN PO 11/11/17 12:15 (Pill Splitter) 1 ea UNSCH PRN OTHER 11/11/17 16:15 (Pepcid) 10 mg BID PO 11/12/17 09:00 11/13/17 08:34 (Lasix Inj) 40 mg Q12HR IV PUSH 11/13/17 10:30 11/13/17 10:30 (SoluMEDROL INJ) 40 mg Q8H IV PUSH 11/13/17 12:00 11/13/17 12:00 (Mycostatin Liq) 5 ml QID SWISH-SWAL 11/13/17 13:00 11/13/17 13:00 Family History Father with dementia. . Substance Use Tobacco: Former smoker. Quit in July 2017. 40 year history. Alcohol: Denies. Prescription med abuse: Denies Illicits: Denies. . Psychosocial History Patient originally from [facility]. Moved to [place] 6 years ago. He is , has 3 biological children. 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 No service. . Spiritual/Cultural Factors No religion affiliation. . Living Will: Copy in medical record Health Care Surrogate: Copy in medical record Date completed: 10/27/2012. . Health Care Surrogate(s): Patient electing sister Jennifer Galeas as healthcare surrogate decision maker. No alternate surrogates. . Documented care wishes: Living will with standard verbiage as it pertains to terminal condition, end- stage condition or persistent vegetative state. . Today's verbally stated goals: Aggressive management short of no cardiac resuscitation. . Family/friends goals: Patient's sister fully supportive of patient's goals. . Ethical and Legal Issues No ethical legal issues identified. . Physical Exam Vital Signs Date Time Temp Pulse Resp B/P (MAP) Pulse Ox O2 Delivery O2 Flow Rate FiO2 11/13/17 09:30 22 11/13/17 06:00 79 11/13/17 04:00 98.3 79 17 138/80 (99) 88 11/13/17 04:00 79 11/13/17 02:00 65 11/13/17 00:47 93 Simple Mask 8.00 11/13/17 00:00 72 15 135/64 (87) 94 11/13/17 00:00 72 11/12/17 22:00 76 11/12/17 20:55 93 Nasal Cannula 6.00 11/12/17 20:00 77 11/12/17 20:00 98.1 77 20 131/60 (83) 92 11/12/17 18:00 65 11/12/17 16:40 99.0 72 19 127/64 91 11/12/17 16:00 75 11/12/17 16:00 97.9 75 18 138/66 (90) 91 Exam CONSTITUTIONAL/GENERAL: This is an adequately nourished patient, in no apparent distress. TUBES/LINES/DRAINS: O2 face mask, PIV's, left-sided pigtail chest tube, Peña catheter, bilateral SCDs. SKIN: No jaundice, rashes, or lesions. Large areas of ecchymoses on bilateral upper extremities, right forearm and hand more than left. Skin temperature appropriate. Not diaphoretic. HEAD: Atraumatic. Normocephalic. EYES: Pupils equal and round and reactive. Extraocular motions intact. No scleral icterus. No injection or drainage. ENT: Hearing grossly normal. Nose without bleeding or purulent drainage. Moist oral mucosa. NECK: Trachea midline. Supple, nontender. CARDIOVASCULAR: Regular rate and rhythm. Warm bilateral extremities, no cyanosis noted. RESPIRATORY/CHEST: Symmetric, increased work of breathing well on O2. However, appears comfortable. GASTROINTESTINAL: Abdomen round, obese, nontender. No guarding. Bowel sounds present. GENITOURINARY: Without palpable bladder distension. Peña catheter in place. MUSCULOSKELETAL: Extremities without clubbing, cyanosis. Edema to bilateral lower extremities. NEUROLOGICAL: Awake and alert x self, place and situation. Follows commands. Cognitively sharp. Moves all extremities. PSYCHIATRIC: No obvious anxiety/depression. Pleasant. . Diagnostic Tests Laboratory Laboratory Tests Test 11/10/17 14:30 11/10/17 20:28 11/11/17 13:08 11/11/17 13:09 Activated Partial Thromboplast Time 53.9 SEC (24.3-30.1) 51.2 SEC (24.3-30.1) 69.7 SEC (24.3-30.1) Blood Urea Nitrogen 64 MG/DL (7-18) Creatinine 1.86 MG/DL (0.60-1.30) Random Glucose 180 MG/DL (74-106) Total Protein 4.2 GM/DL (6.4-8.2) Albumin 2.0 GM/DL (3.4-5.0) Calcium Level 7.1 MG/DL (8.5-10.1) Phosphorus Level 6.3 MG/DL (2.5-4.9) Magnesium Level 2.6 MG/DL (1.5-2.5) Alkaline Phosphatase 47 U/L (45-117) Aspartate Amino Transf (AST/SGOT) 56 U/L (15-37) Alanine Aminotransferase (ALT/SGPT) 96 U/L (12-78) Total Bilirubin 3.4 MG/DL (0.2-1.0) Sodium Level 145 MEQ/L (136-145) Potassium Level 3.8 MEQ/L (3.5-5.1) Chloride Level 108 MEQ/L (98-107) Carbon Dioxide Level 16.5 MEQ/L (21.0-32.0) Anion Gap 21 MEQ/L (5-15) Estimat Glomerular Filtration Rate 36 ML/MIN (>89) Hemoglobin A1c 5.7 % (4.3-6.0) Protein Corrected Calcium 8.7 MG/DL (8.5-10.1) Free Thyroxine 0.97 NG/DL (0.76-1.46) Thyroid Stimulating Hormone 3rd Gen 0.625 uIU/ML (0.358-3.740) White Blood Count 15.2 TH/MM3 (4.0-11.0) Red Blood Count 1.38 MIL/MM3 (4.50-5.90) Hemoglobin 4.2 GM/DL (13.0-17.0) Hematocrit 13.1 % (39.0-51.0) Mean Corpuscular Volume 94.8 FL (80.0-100.0) Mean Corpuscular Hemoglobin 30.5 PG (27.0-34.0) Mean Corpuscular Hemoglobin Concent 32.1 % (32.0-36.0) Red Cell Distribution Width 14.3 % (11.6-17.2) Platelet Count 151 TH/MM3 (150-450) Mean Platelet Volume 11.3 FL (7.0-11.0) Neutrophils (%) (Auto) 90.5 % (16.0-70.0) Lymphocytes (%) (Auto) 4.1 % (9.0-44.0) Monocytes (%) (Auto) 5.3 % (0.0-8.0) Eosinophils (%) (Auto) 0.0 % (0.0-4.0) Basophils (%) (Auto) 0.1 % (0.0-2.0) Neutrophils # (Auto) 13.8 TH/MM3 (1.8-7.7) Lymphocytes # (Auto) 0.6 TH/MM3 (1.0-4.8) Monocytes # (Auto) 0.8 TH/MM3 (0-0.9) Eosinophils # (Auto) 0.0 TH/MM3 (0-0.4) Basophils # (Auto) 0.0 TH/MM3 (0-0.2) CBC Comment AUTO DIFF Differential Total Cells Counted 100 Neutrophils % (Manual) 90 % (16-70) Band Neutrophils % 1 % (0-6) Lymphocytes % 5 % (9-44) Monocytes % 1 % (0-8) Neutrophils # (Manual) 14.3 TH/MM3 (1.8-7.7) Metamyelocytes 3 % (0-1) Differential Comment FINAL DIFF MANUAL Platelet Estimate NORMAL (NORMAL) Platelet Morphology Comment NORMAL (NORMAL) Basophilic Stippling FAINT (NORMAL) Test 11/11/17 17:30 11/11/17 21:18 11/12/17 04:15 11/12/17 05:30 Reticulocyte Count 2.5 % (0.4-3.0) Absolute Reticulocyte Count 57.4 MIL/L (20.0-150.0) Haptoglobin 123 MG/DL (30-200) Prothrombin Time 14.0 SEC (9.8-11.6) 12.6 SEC (9.8-11.6) Prothromb Time International Ratio 1.4 RATIO 1.2 RATIO Activated Partial Thromboplast Time 27.1 SEC (24.3-30.1) 23.5 SEC (24.3-30.1) Fibrinogen 123 mg/dL (227-377) 153 mg/dL (227-377) Lactic Acid Level 6.6 mmol/L (0.4-2.0) 3.2 mmol/L (0.4-2.0) Lactate Dehydrogenase 476 U/L (87-241) White Blood Count 14.3 TH/MM3 (4.0-11.0) 16.1 TH/MM3 (4.0-11.0) Red Blood Count 2.99 MIL/MM3 (4.50-5.90) 2.76 MIL/MM3 (4.50-5.90) Hemoglobin 8.9 GM/DL (13.0-17.0) 8.3 GM/DL (13.0-17.0) Hematocrit 26.0 % (39.0-51.0) 24.0 % (39.0-51.0) Mean Corpuscular Volume 86.7 FL (80.0-100.0) 86.9 FL (80.0-100.0) Mean Corpuscular Hemoglobin 29.7 PG (27.0-34.0) 30.3 PG (27.0-34.0) Mean Corpuscular Hemoglobin Concent 34.2 % (32.0-36.0) 34.8 % (32.0-36.0) Red Cell Distribution Width 15.9 % (11.6-17.2) 15.5 % (11.6-17.2) Platelet Count 84 TH/MM3 (150-450) 89 TH/MM3 (150-450) Mean Platelet Volume 10.8 FL (7.0-11.0) 11.2 FL (7.0-11.0) Neutrophils (%) (Auto) 87.1 % (16.0-70.0) 87.2 % (16.0-70.0) Lymphocytes (%) (Auto) 6.9 % (9.0-44.0) 7.2 % (9.0-44.0) Monocytes (%) (Auto) 5.9 % (0.0-8.0) 5.4 % (0.0-8.0) Eosinophils (%) (Auto) 0.0 % (0.0-4.0) 0.0 % (0.0-4.0) Basophils (%) (Auto) 0.1 % (0.0-2.0) 0.2 % (0.0-2.0) Neutrophils # (Auto) 12.5 TH/MM3 (1.8-7.7) 14.1 TH/MM3 (1.8-7.7) Lymphocytes # (Auto) 1.0 TH/MM3 (1.0-4.8) 1.2 TH/MM3 (1.0-4.8) Monocytes # (Auto) 0.8 TH/MM3 (0-0.9) 0.9 TH/MM3 (0-0.9) Eosinophils # (Auto) 0.0 TH/MM3 (0-0.4) 0.0 TH/MM3 (0-0.4) Basophils # (Auto) 0.0 TH/MM3 (0-0.2) 0.0 TH/MM3 (0-0.2) CBC Comment AUTO DIFF AUTO DIFF Differential Total Cells Counted 100 100 Neutrophils % (Manual) 89 % (16-70) 93 % (16-70) Band Neutrophils % 4 % (0-6) 3 % (0-6) Lymphocytes % 4 % (9-44) 2 % (9-44) Monocytes % 2 % (0-8) 2 % (0-8) Neutrophils # (Manual) 13.4 TH/MM3 (1.8-7.7) 15.5 TH/MM3 (1.8-7.7) Metamyelocytes 1 % (0-1) Nucleated Red Blood Cells 2 /100 WBC (0-0) 5 /100 WBC (0-0) Differential Comment FINAL DIFF MANUAL FINAL DIFF MANUAL Toxic Granulation (NORMAL) Platelet Estimate LOW (NORMAL) LOW (NORMAL) Platelet Morphology Comment ENLARGED (NORMAL) ENLARGED (NORMAL) Basophilic Stippling FAINT (NORMAL) Blood Urea Nitrogen 69 MG/DL (7-18) Creatinine 1.77 MG/DL (0.60-1.30) Random Glucose 103 MG/DL (74-106) Total Protein 4.5 GM/DL (6.4-8.2) Albumin 2.7 GM/DL (3.4-5.0) Calcium Level 7.4 MG/DL (8.5-10.1) Phosphorus Level 5.6 MG/DL (2.5-4.9) Magnesium Level 2.7 MG/DL (1.5-2.5) Alkaline Phosphatase 40 U/L (45-117) Aspartate Amino Transf (AST/SGOT) 63 U/L (15-37) Alanine Aminotransferase (ALT/SGPT) 96 U/L (12-78) Total Bilirubin 5.3 MG/DL (0.2-1.0) Sodium Level 146 MEQ/L (136-145) Potassium Level 3.6 MEQ/L (3.5-5.1) Chloride Level 110 MEQ/L (98-107) Carbon Dioxide Level 23.1 MEQ/L (21.0-32.0) Anion Gap 13 MEQ/L (5-15) Estimat Glomerular Filtration Rate 38 ML/MIN (>89) Protein Corrected Calcium 8.9 MG/DL (8.5-10.1) Test 11/12/17 11:13 11/12/17 22:30 11/13/17 03:50 11/13/17 12:00 Hemoglobin 7.4 GM/DL (13.0-17.0) 8.4 GM/DL (13.0-17.0) 7.7 GM/DL (13.0-17.0) Hematocrit 21.8 % (39.0-51.0) 24.5 % (39.0-51.0) 22.4 % (39.0-51.0) White Blood Count 14.8 TH/MM3 (4.0-11.0) Red Blood Count 2.49 MIL/MM3 (4.50-5.90) Mean Corpuscular Volume 89.8 FL (80.0-100.0) Mean Corpuscular Hemoglobin 30.8 PG (27.0-34.0) Mean Corpuscular Hemoglobin Concent 34.3 % (32.0-36.0) Red Cell Distribution Width 14.9 % (11.6-17.2) Platelet Count 69 TH/MM3 (150-450) Mean Platelet Volume 11.2 FL (7.0-11.0) Neutrophils (%) (Auto) 92.2 % (16.0-70.0) Lymphocytes (%) (Auto) 3.8 % (9.0-44.0) Monocytes (%) (Auto) 3.9 % (0.0-8.0) Eosinophils (%) (Auto) 0.0 % (0.0-4.0) Basophils (%) (Auto) 0.1 % (0.0-2.0) Neutrophils # (Auto) 13.7 TH/MM3 (1.8-7.7) Lymphocytes # (Auto) 0.6 TH/MM3 (1.0-4.8) Monocytes # (Auto) 0.6 TH/MM3 (0-0.9) Eosinophils # (Auto) 0.0 TH/MM3 (0-0.4) Basophils # (Auto) 0.0 TH/MM3 (0-0.2) CBC Comment AUTO DIFF Differential Comment AUTO DIFF CONFIRMED Platelet Estimate LOW (NORMAL) Platelet Morphology Comment NORMAL (NORMAL) Blood Urea Nitrogen 60 MG/DL (7-18) Creatinine 1.56 MG/DL (0.60-1.30) Random Glucose 97 MG/DL (74-106) Total Protein 4.5 GM/DL (6.4-8.2) Albumin 2.5 GM/DL (3.4-5.0) Calcium Level 7.0 MG/DL (8.5-10.1) Alkaline Phosphatase 39 U/L (45-117) Aspartate Amino Transf (AST/SGOT) 58 U/L (15-37) Alanine Aminotransferase (ALT/SGPT) 79 U/L (12-78) Total Bilirubin 5.2 MG/DL (0.2-1.0) Sodium Level 147 MEQ/L (136-145) Potassium Level 3.8 MEQ/L (3.5-5.1) Chloride Level 111 MEQ/L (98-107) Carbon Dioxide Level 26.4 MEQ/L (21.0-32.0) Anion Gap 10 MEQ/L (5-15) Estimat Glomerular Filtration Rate 44 ML/MIN (>89) Protein Corrected Calcium 8.4 MG/DL (8.5-10.1) Pleural Fluid WBC 10 /MM3 (0-10) Pleural Fluid RBC 5940 /MM3 (0-0) Pleural Fluid Neutrophils 12 % Pleural Fluid Lymphocytes 68 % Pleural Fluid Histiocytes 8 % Pleural Fluid Mesothelial Cells 12 % Pleural Fluid Comment Pleural Fluid Total Protein 0.8 GM/DL Pleural Fluid LDH 96 U/L Pleural Fluid Glucose 111 MG/DL Result Diagram: 11/13/17 0350 11/13/17 0350 Microbiology Microbiology Date/Time Source Procedure Growth Status 11/13/17 12:00 Fluid Pleural Fluid Gram Stain Pending Received 11/13/17 12:00 Fluid Pleural Fluid Body Fluid Culture Pending Received Imaging Last Impressions Chest X-Ray 11/13/17 0000 Signed Impressions: CONCLUSION: Left chest tube without evidence of pneumothorax. There appears to be minimal r esidual pleural fluid seen at the lateral left base. Worsening right base atelectasis, consolidation, and/or effusion. Chest CT 11/12/17 0000 Signed Impressions: CONCLUSION: 1. Bilateral pleural effusions left greater than right. Areas of infiltrate ve rsus atelectasis left lung base difficult to rule out a small superimposed pneu monia. 2. Dense coronary atherosclerotic disease. Abdomen/Pelvis CT 11/11/17 185 Signed Impressions: CONCLUSION: 1. New complex fluid collection in the right-sided the abdomen which appears t o be extraperitoneal anterior to the right psoas muscle and displacing the righ t colon medially. Fluid collection measures up to 21 cm in length and 10.7 cm i n maximal diameter. Differential diagnosis includes hematoma or infection/absce ss. 2. Mild free fluid within the abdomen. 3. Mild anasarca. 4. Cholecystostomy tube in right upper quadrant without fluid directly around the gallbladder. 5. Small to moderate bilateral effusions with slight improvement in basilar mani ng consolidation since November 01. Chest Ultrasound 11/07/17 Signed Impressions: CONCLUSION: 1. Left-sided pleural effusion. Percutaneous Cholangiogram 11/01/17 Signed Impressions: CONCLUSION: 1. Uncomplicated percutaneous cholecystostomy as above. Renal Ultrasound 10/31/17 Signed Impressions: CONCLUSION: 1. No hydronephrosis. 2. Increased cortical echogenicity consistent with medical renal disease. Head Magnetic Resonance Angiography 10/31/17 Signed Impressions: CONCLUSION: 1. Unremarkable MRA of the brain. Head CT 10/31/17 Signed Impressions: CONCLUSION: 1. Negative CT Head non contrast. 2. No evidence of acute infarct, hemorrhage, mass or edema. Brain MRI 10/31/17 Signed Impressions: CONCLUSION: 1. Senescent changes with minimal periventricular ischemic white matter demyel ination. 2. No acute abnormality. Specifically, no acute infarction, mass or hemorrhage . Gall Bladder Ultrasound 10/30/17 Signed Impressions: CONCLUSION: 1. Fatty infiltration of the liver. 2. Multiple stones in the gallbladder. No biliary tract obstruction. Extremity Arterial Study 10/28/17 Signed Impressions: CONCLUSION: 1. Abnormal ABIs, left greater than right. The left DAVID is significantly dimin ished at 0.14. Aorta w/Runoff CTA 10/28/17 Signed Impressions: Service Date/Time: Saturday, October 28, 2017 21:50 - CONCLUSION: 1. Acute occlusion of the left inflow with concern for short segment occlusion involving the distal right inflow. This raises concern for an embolic event. 2. Right lower extremity shows scattered disease throughout the common femoral artery, SFA and [id number] popliteal artery with three-vessel runoff to the foot. 3. Left lower extremity with reconstitution of the common femoral artery with diseased out flow and two vessel runoff to the foot as detailed above. 4. 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 5. Hepatic steatosis. 6. Cholelithiasis. Juanjose Mckeon Jr., MD Procedures * 10/31/17: Endotracheal intubation * 11/01/17: Biliary drain placement * 11/07/17: Extubation * 11/13/17: Left-sided pigtail chest tube . Patient/Family Conference Present at Family Conference: Patient, Sister Jennifer. Family Conference Time (mins): 48 Family Conference Location: Bedside, Consult Room Issues Discussed: * Palliative care role, purpose, approach * Additional medical, psychosocial, and spiritual history * Patients general health, functional status, and cognitive changes in the months leading up to the current hospitalization * Patient/family understanding of the current medical problems to include prolonged hospitalization, sepsis, COPD exacerbation, acute on chronic renal failure, choledocholithiasis, retroperitoneal hematoma, profound physical deconditioning. * Patient/family understanding of prognosis -guarded prognosis * Patients goals of care as best understood from advance directives and/or conversations and/or values * Current medical treatment options and benefits/burdens of those options * Questions answered to the best of my ability * Palliative care contact information provided . Assessment and Plan Disease Oriented Problem List: (1) Sepsis (2) Pneumonia (3) Choledocholithiasis (4) Retroperitoneal bleed (5) COPD (chronic obstructive pulmonary disease) (6) Acute blood loss anemia (7) Acute renal failure (8) Peripheral vascular disease (9) CKD (chronic kidney disease) stage 4, GFR 15-29 ml/min (10) Ischemia of left lower extremity (11) Physical deconditioning Symptom Scale: (1) Dyspnea 0-10 Scale: Unable to quantify (2) Pain 0-10 Scale: Unable to quantify (3) Debility 0-10 Scale: Unable to quantify Pertinent Non-Medical Issues Psychosocial: Patient originally from [facility]. Moved to [place] 6 years ago. He is , has 3 biological children. 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 No service. Spiritual: No religion affiliation. Legal: Advance directives completed. Ethical issues impacting care: No ethical issues identified. . Important Contacts Sister/healthcare surrogate: Jennifer Galeas . Prognosis Mr. Bates is a 67-year-old male with a medical history significant for COPD, hypertension, CAD and peripheral vascular disease. Patient presented to ED via EMS on 10/28/17 for evaluation of shortness of breath and pain to his left leg. He was found with occlusion of left iliac artery, not a surgical candidate secondary to sepsis, pneumonia and respiratory failure. Clinical course complicated by acute on chronic renal failure, choledocholithiasis requiring biliary drain placement, retroperitoneal bleed with development of hemorrhagic shock. Patient remains in critical condition, high risk for further complications, decline and . Overall prognosis is guarded. . Code Status: Alternative Code Plan * CODE STATUS: Alternate code, intubation only. This has been reiterated by his sister/healthcare surrogate Jennifer. * HEALTHCARE DECISION-MAKING: Patient participating medical decision making, however, intermittent confusion secondary to encephalopathy/acute illness. Advanced directives completed, patient designated his sister Jennifer Galeas as healthcare surrogate decision maker. No alternate surrogate designated. Palliative care recommends shared decision making with patient and sister given intermittent confusion. In addition, patient appears to rely on sister for guidance. * GOALS OF CARE: Patient supported by Sister Jennifer electing continuation of aggressive management short of NO cardiac resuscitation. Sister wishing to allow a few more days for clinical improvement, maximize medical management. Gently shared concerns with sister regarding patient's guarded prognosis and high risk for further complications, progressive decline and . Sister receptive to palliative care follow-up. * SYMPTOMS: = Dyspnea: Multifactorial secondary to COPD, acute illness, physical deconditioning, anemia -retroperitoneal hematoma. Currently on 6 L O2 via simple mask. Currently on Solu-Medrol 40 mg every 8 hours. = Pain: Secondary to multiple lines, prolonged hospitalization/Bedrest. Windsor 7.5/325 mg available as needed. Has received 1 dose in the past 24 hours. No further recommendations. = Debility: Secondary to prolonged hospitalization and acute on chronic illness. Likely to continue to worsen. PT following, PT at rehab recommended. * Case discussed with Dr. Puckett and bedside RN. * Palliative care contact information has been provided to patient and family. * Palliative care will continue to follow up for further clarification of goals of care as patient's clinical course continues to evolve. . Time Spent Total Floor Time (mins): 71 (Total time to include review and summarization of available medical records, physical exam, goals of care conversation with patient and sister, case discussion with attending and bedside RN.) >50% Counseling/Coord of Care: Yes Thank you for the opportunity to participate in the care of Mr. Bates. Attestation To help prompt me to consider important information that might be impacting today's encounter and assessment, information from prior notes written by myself or my colleagues may have been "brought forward" into today's note. My signature on this note, however, is an attestation that I personally performed the exam, history, and/or decision-making noted today, and, unless otherwise indicated, the interactions with patient, family, and staff as well as the review of records all occurred today. I also attest that the listed assessment and stated plan reflect my best clinical judgment today based on the combination of historical information, prior notes, and today's exam/ interactions. When time spent is documented, it refers only to time spent today by the signer, or if indicated, combined time spent today by collaborating physician/nurse practitioner. Nancy Encarnacion Nov 13, 2017 15:23
--- NOTE | 2017-11-13 16:07 | HHI.PR ---
cc: Richi Martins MD Subjective Subjective Notes Resting in bed No complaints Objective Vitals/I&O Vital Signs Date Time Temp Pulse Resp B/P (MAP) Pulse Ox O2 Delivery O2 Flow Rate FiO2 11/13/17 09:30 22 11/13/17 08:00 77 11/13/17 04:00 98.3 138/80 (99) 88 11/13/17 00:47 Simple Mask 8.00 Labs Laboratory Tests Test 11/12/17 22:30 11/13/17 03:50 11/13/17 12:00 11/13/17 14:32 Hemoglobin 8.4 7.7 7.3 Hematocrit 24.5 22.4 21.5 White Blood Count 14.8 Red Blood Count 2.49 Mean Corpuscular Volume 89.8 Mean Corpuscular Hemoglobin 30.8 Mean Corpuscular Hemoglobin Concent 34.3 Red Cell Distribution Width 14.9 Platelet Count 69 Mean Platelet Volume 11.2 Neutrophils (%) (Auto) 92.2 Lymphocytes (%) (Auto) 3.8 Monocytes (%) (Auto) 3.9 Eosinophils (%) (Auto) 0.0 Basophils (%) (Auto) 0.1 Neutrophils # (Auto) 13.7 Lymphocytes # (Auto) 0.6 Monocytes # (Auto) 0.6 Eosinophils # (Auto) 0.0 Basophils # (Auto) 0.0 CBC Comment AUTO DIFF Differential Comment AUTO DIFF CONFIRMED Platelet Estimate LOW Platelet Morphology Comment NORMAL Blood Urea Nitrogen 60 Creatinine 1.56 Random Glucose 97 Total Protein 4.5 Albumin 2.5 Calcium Level 7.0 Alkaline Phosphatase 39 Aspartate Amino Transf (AST/SGOT) 58 Alanine Aminotransferase (ALT/SGPT) 79 Total Bilirubin 5.2 Sodium Level 147 Potassium Level 3.8 Chloride Level 111 Carbon Dioxide Level 26.4 Anion Gap 10 Estimat Glomerular Filtration Rate 44 Protein Corrected Calcium 8.4 Pleural Fluid WBC 10 Pleural Fluid RBC 5940 Pleural Fluid Neutrophils 12 Pleural Fluid Lymphocytes 68 Pleural Fluid Histiocytes 8 Pleural Fluid Mesothelial Cells 12 Pleural Fluid Comment Pleural Fluid Total Protein 0.8 Pleural Fluid LDH 96 Pleural Fluid Glucose 111 Date/Time Source Procedure Growth Status 10/30/17 20:38 Blood Peripheral Aerobic Blood Culture - Final NO GROWTH IN 5 DAYS Complete 10/30/17 20:38 Blood Peripheral Anaerobic Blood Culture - Final NO GROWTH IN 5 DAYS Complete 11/13/17 12:00 Fluid Pleural Fluid Gram Stain - Final Resulted 11/13/17 12:00 Fluid Pleural Fluid Body Fluid Culture Pending Resulted 11/04/17 05:08 Stool Stool Stool Occult Blood (NUBIA) - Final HEMOCCULT POSITIVE Complete 10/31/17 10:40 Sputum Endotracheal Gram Stain - Final Complete 10/31/17 10:40 Sputum Endotracheal Sputum Culture - Final HEAVY GROWTH NORMAL RESPIRATORY KAREEM Complete 10/29/17 00:00 Urine Catheterized Urine Urine Culture - Final Enterococcus Faecalis Complete Cardiovascular: Regular Lungs: Clear Abdomen: Non-distended, Non-tender Extremities: No edema A/P Assessment and Plan 67 year old male with multiple medical problems on heparin drip with retroperitoneal hematoma -Diet as tolerated -Continue to hold anticoagulation -Continue abdominal exams; benign exam today -Continue non operative treatment Attending Statement The exam, history, and the medical decision-making described in the above note were completed with the assistance of the mid-level provider. I reviewed and agree with the findings presented. I attest that I had a [id number] encounter with the patient on the same day, and personally performed and documented my assessment and findings in the medical record. s/p retroperitoneal bleed, stable no pain abdominal exam stable, non-surgical continue conservative management of hematoma will follow Silvana Whalen/Customer Services Manager MARTINA Nov 13, 2017 16:07 Richi Martins MD Nov 19, 2017 14:20
--- NOTE | 2017-11-13 18:17 | HHI.PR ---
Subjective Remarks 67 YOWM with COPD,Sepsis, ischemia of leg Developed RF, intubated mild sob cough, occ sp No Fever had Left chest cathetor placed Improvement in breathing on Oxymask Objective Vital Signs Vital Signs Date Time Temp Pulse Resp B/P (MAP) Pulse Ox O2 Delivery O2 Flow Rate FiO2 11/13/17 16:00 79 18 117/53 (74) 88 11/13/17 16:00 77 11/13/17 15:30 78 22 124/65 (84) 87 11/13/17 15:00 79 19 112/70 (84) 91 11/13/17 14:30 68 17 115/59 (77) 96 11/13/17 14:00 71 18 112/58 (76) 95 11/13/17 14:00 79 11/13/17 13:30 71 19 114/58 (76) 95 11/13/17 13:00 69 17 123/59 (80) 96 11/13/17 12:30 66 14 129/60 (83) 96 11/13/17 12:01 76 31 141/67 (91) 92 11/13/17 12:00 77 11/13/17 12:00 80 22 92 11/13/17 12:00 79 11/13/17 11:30 78 18 115/77 (90) 94 11/13/17 11:00 81 23 128/80 (96) 94 11/13/17 10:30 90 31 131/84 (100) 93 11/13/17 10:00 76 20 144/63 (90) 96 11/13/17 09:30 81 27 146/68 (94) 95 11/13/17 09:30 22 11/13/17 09:00 75 15 130/85 (100) 95 11/13/17 08:30 71 13 124/60 (81) 96 11/13/17 08:00 77 11/13/17 08:00 70 13 137/75 (95) 97 11/13/17 06:00 79 11/13/17 04:00 98.3 79 17 138/80 (99) 88 11/13/17 04:00 79 11/13/17 02:00 65 11/13/17 00:47 93 Simple Mask 8.00 11/13/17 00:00 72 15 135/64 (87) 94 11/13/17 00:00 72 6/5/18 22:00 76 11/12/17 20:55 93 Nasal Cannula 6.00 11/12/17 20:00 77 11/12/17 20:00 98.1 77 20 131/60 (83) 92 I/O 11/12/17 11/12/17 11/12/17 11/13/17 11/13/17 11/13/17 06:59 14:59 22:59 06:59 14:59 22:59 Intake Total 1859 ml 750 ml 3469 ml Output Total 800 ml 100 ml 1250 ml 870 ml Balance 1059 ml -100 ml -500 ml 2599 ml Intake Oral 250 ml IV Total 1434 ml 3469 ml Packed Cells 400 ml 400 ml Blood Product IV Normal Saline Flush 25 ml 100 ml Output Urine Total 800 ml 1200 ml 800 ml Drainage Total 100 ml 50 ml 70 ml # Bowel Movements 0 1 0 Result Diagram: 11/13/17 1432 11/13/17 0350 Objective Remarks GENERAL: WBWN WM, mild sob SKIN: Warm and dry. HEAD: Normocephalic. EYES: No scleral icterus. No injection or drainage. NECK: Supple, trachea midline. No JVD or lymphadenopathy. CARDIOVASCULAR: Regular rate and rhythm without murmurs, gallops, or rubs. RESPIRATORY: Breath sounds equal bilaterally. No accessory muscle use. GASTROINTESTINAL: Abdomen soft, non-tender, nondistended. MUSCULOSKELETAL: No cyanosis, or edema. Cold left leg BACK: Nontender without obvious deformity. No CVA tenderness. A/P Assessment and Plan IMPRESSION: 1. Sepsis. 2. Chronic obstructive pulmonary disease, mild exacerbation. 3. Left basilar infiltrate. 4. Urinary tract infection 5. Encephalopathy. 6. Cold left leg. 7. Thrombocytopenia. 8. VDRF--extubated 11/07 9. Severe anemia, retroperitoneal bleed PLAN: Cont Abx per ID Monitor renal functions Supplement 02 with Oxymask Encourage PO DW RN at BS Monitor H/H Chest tube to suction. Dennis Johnson MD Nov 13, 2017 18:17
[2017-11-14] VITALS (22 sets, daily range): BP systolic 107–153; BP diastolic 56–90; PULSE 66–84; RESP 12–19; TEMP 98.3–99.4; O2SAT 93–99
[2017-11-14] MEDS: ALBUMIN 25% INJ 50 ML IV SCH ×4 (01:12→18:03)
[2017-11-14] MEDS: CHLORHEXIDINE GLUCONATE 2 % 1 PACK (2 CLOTHS) TOP SCH (04:00)
[2017-11-14] MEDS: methylPREDNISolone SOD SUCC 40 MG/1 ML VIAL IV PUSH SCH ×3 (04:54→20:21)
[2017-11-14] MEDS: hydrALAZINE HCL 25 MG TAB PO SCH ×3 (05:02→21:58)
--- NOTE | 2017-11-14 05:02 | RADRPT ---
EXAM DATE: 11/14/2017 4:55 AM EDT AGE/SEX: 67 years / Male INDICATIONS: Shortness of breath, possible pulmonary disease. CLINICAL DATA: This is the patient's subsequent encounter. Patient reports that signs and symptoms h ave been present for 4 - 6 days and indicates a pain score of 0/10. MEDICAL/SURGICAL HISTORY: Chronic obstructive pulmonary disease. None. COMPARISON: C, CHEST SINGLE AP, 11/13/2017. . FINDINGS: Heart size enlarged. Small caliber tubing overlies left chest. Mild basilar airspace disease with small effusions similar to November 13. No pneumothorax. CONCLUSION: Stable mild basilar airspace disease with small effusions. Electronically signed by: Christopher aKur MD 11/14/2017 5:01 AM EDT
[2017-11-14 05:33] LABS: AUTOMATED NEUTROPHIL # 10.4 TH/MM3 (1.8-7.7); BASOPHIL # 0.1 TH/MM3 (0-0.2); BASOPHIL % 0.5 % (0.0-2.0); LYMPH % 1.7 % (9.0-44.0); LYMPHOCYTE # 0.2 TH/MM3 (1.0-4.8); MEAN CELL VOLUME 91.7 FL (80.0-100.0); MEAN CORPUSCULAR HEMOGLOBIN 31.9 PG (27.0-34.0); MEAN CORPUSCULAR HGB CONC 34.8 % (32.0-36.0); MEAN PLATELET VOLUME 10.7 FL (7.0-11.0); MONO % 2.3 % (0.0-8.0); MONOCYTE # 0.3 TH/MM3 (0-0.9); NEUT % 95.5 % (16.0-70.0); PLATELET COUNT 67 TH/MM3 (150-450); RED BLOOD COUNT 2.17 MIL/MM3 (4.50-5.90); RED CELL DISTRIBUTION WIDTH 15.4 % (11.6-17.2); WHITE BLOOD COUNT 10.9 TH/MM3 (4.0-11.0)
[2017-11-14 05:45] LABS: HEMATOCRIT 19.9 % (39.0-51.0); HEMOGLOBIN 6.9 GM/DL (13.0-17.0)
[2017-11-14 05:53] LABS: BICARBONATE 27.1 MEQ/L (21.0-32.0); CALCIUM 7.4 MG/DL (8.5-10.1); CREATININE 1.23 MG/DL (0.60-1.30)
[2017-11-14 06:18] LABS: CALCIUM-PROTEIN CORRECTED 8.8 MG/DL (8.5-10.1); TOTAL PROTEIN 4.7 GM/DL (6.4-8.2)
[2017-11-14] MEDS: CHLORHEXIDINE 0.12% (ORAL KIT) 15 ML CUP MT SCH ×2 (08:00→20:00)
[2017-11-14] MEDS: BUDESONIDE-FORMOTEROL 160/4.5 MCG INHALER INH SCH ×2 (09:00→20:22)
[2017-11-14] MEDS: guaiFENesin E.R. 600 MG TAB PO SCH ×2 (10:48→20:21)
[2017-11-14] MEDS: FAMOTIDINE 20 MG TAB PO SCH ×2 (10:48→20:22)
[2017-11-14] MEDS: DILTIAZEM-CD 240 MG CAP ER PO SCH (10:48)
[2017-11-14] MEDS: FUROSEMIDE 40 MG/4 ML VIAL IV PUSH SCH ×2 (10:49→20:20)
[2017-11-14] MEDS: NYSTATIN SUSP 500,000 U/5 ML CUP SWISH-SWAL SCH ×4 (10:49→20:21)
[2017-11-14] MEDS: SODIUM CHLORIDE 0.9% FLUSH 10 ML FLUSH IV FLUSH SCH ×2 (10:49→20:22)
--- NOTE | 2017-11-14 12:08 | HHI.PR ---
cc: Richi Martins MD Subjective Subjective Notes Resting in bed Reports no pain Objective Vitals/I&O Vital Signs Date Time Temp Pulse Resp B/P (MAP) Pulse Ox O2 Delivery O2 Flow Rate FiO2 11/14/17 11:00 70 11/14/17 08:00 98.7 13 138/63 (88) 95 11/14/17 07:52 Simple Mask 8.00 Labs Laboratory Tests Test 11/13/17 14:32 11/14/17 05:00 Hemoglobin 7.3 6.9 Hematocrit 21.5 19.9 White Blood Count 10.9 Red Blood Count 2.17 Mean Corpuscular Volume 91.7 Mean Corpuscular Hemoglobin 31.9 Mean Corpuscular Hemoglobin Concent 34.8 Red Cell Distribution Width 15.4 Platelet Count 67 Mean Platelet Volume 10.7 Neutrophils (%) (Auto) 95.5 Lymphocytes (%) (Auto) 1.7 Monocytes (%) (Auto) 2.3 Eosinophils (%) (Auto) 0.0 Basophils (%) (Auto) 0.5 Neutrophils # (Auto) 10.4 Lymphocytes # (Auto) 0.2 Monocytes # (Auto) 0.3 Eosinophils # (Auto) 0.0 Basophils # (Auto) 0.1 CBC Comment AUTO DIFF Differential Comment AUTO DIFF CONFIRMED Platelet Estimate LOW Platelet Morphology Comment NORMAL Blood Urea Nitrogen 49 Creatinine 1.23 Random Glucose 116 Total Protein 4.7 Calcium Level 7.4 Sodium Level 148 Potassium Level 3.8 Chloride Level 112 Carbon Dioxide Level 27.1 Anion Gap 9 Estimat Glomerular Filtration Rate 59 Protein Corrected Calcium 8.8 Date/Time Source Procedure Growth Status 10/30/17 20:38 Blood Peripheral Aerobic Blood Culture - Final NO GROWTH IN 5 DAYS Complete 10/30/17 20:38 Blood Peripheral Anaerobic Blood Culture - Final NO GROWTH IN 5 DAYS Complete 11/13/17 12:00 Fluid Pleural Fluid Gram Stain - Final Resulted 11/13/17 12:00 Fluid Pleural Fluid Body Fluid Culture Pending Resulted 11/04/17 05:08 Stool Stool Stool Occult Blood (NUBIA) - Final HEMOCCULT POSITIVE Complete 10/31/17 10:40 Sputum Endotracheal Gram Stain - Final Complete 10/31/17 10:40 Sputum Endotracheal Sputum Culture - Final HEAVY GROWTH NORMAL RESPIRATORY KAREEM Complete 10/29/17 00:00 Urine Catheterized Urine Urine Culture - Final Enterococcus Faecalis Complete Cardiovascular: Regular Lungs: Clear Abdomen: Other (large obese abdomen; nontender ) Narrative Exam LEFT chest tube in place Moderate generalized edema A/P Assessment and Plan 67 year old male with multiple medical problems on heparin drip with retroperitoneal hematoma -Diet as tolerated -Hmg 6.9--- transfuse RBC today -Continue to hold anticoagulation -Continue abdominal exams; exam continues to be benign -Continue non operative treatment Attending Statement The exam, history, and the medical decision-making described in the above note were completed with the assistance of the mid-level provider. I reviewed and agree with the findings presented. I attest that I had a [id number] encounter with the patient on the same day, and personally performed and documented my assessment and findings in the medical record. retroperitoneal hematoma, stable no pain abdominal exam stable, non-surgical will follow Silvana Whalen/Industrial Manufacturing Technician ARNP Nov 14, 2017 12:08 Richi Martins MD Nov 19, 2017 15:00
--- NOTE | 2017-11-14 12:57 | HHI.HCPN ---
Reason for visit a. To assist with evaluation and management of symptoms including: Shortness of breath, pain, debility. b. To assist medical decision maker(s) with: better understanding of current medical conditions; weighing benefits/burdens of medical treatment options; making medical treatment decisions. . Subjective/Interval History Follow-up palliative care visit for clarification of goals of care, emotional support. Patient seen in medical ICU, in bed in no acute distress. Patient alert and oriented x self, place and situation. Endorsing shortness of breath at rest, patient status post left-sided pigtail chest tube yesterday secondary to pleural effusion. Remains on 8 L of O2 via facemask. Denies pain, nausea/ vomiting or abdominal discomfort. Hemoglobin today 6.9 from 7.3 yesterday, pending packed red blood cell transfusion. Renal function improving, BUN/ creatinine 49/1.23 from 60/1.56 yesterday. Good urinary output. Liver enzymes continue to trend down, biliary drain in place. No family at bedside. Patient verbalizes that he has been somewhat confused in the past few days. Reports not being fully aware of his current clinical condition. Reviewed with patient clinical course and current medical management. Patient reiterated CODE STATUS as intubation only, no cardiac code. Patient reiterated aggressive goals. Patient appreciative of today's visit, receptive to palliative care follow-ups. . Family/friend interactions See interval note. . Advance Directives Living Will: Copy in medical record Health Care Surrogate: Copy in medical record Advance Directive Specifics Date completed: 10/27/2012. . Health Care Surrogate(s): Patient electing sister Jennifer Galeas as healthcare surrogate decision maker. No alternate surrogates. . Documented care wishes: Living will with standard verbiage as it pertains to terminal condition, end- stage condition or persistent vegetative state. . Significant change in goals: Goals of therapy remain aggressive short of no cardiac resuscitation. . Objective Vital Signs Date Time Temp Pulse Resp B/P (MAP) Pulse Ox O2 Delivery O2 Flow Rate FiO2 11/14/17 12:00 69 11/14/17 12:00 98.5 69 12 153/90 (111) 98 11/14/17 11:00 70 11/14/17 10:00 68 11/14/17 09:00 66 11/14/17 08:00 66 11/14/17 08:00 98.7 66 13 138/63 (88) 95 11/14/17 07:52 95 Simple Mask 8.00 11/14/17 07:00 68 11/14/17 06:00 73 11/14/17 04:00 66 11/14/17 04:00 98.5 66 14 107/59 (75) 96 11/14/17 02:00 76 11/14/17 00:00 76 11/14/17 00:00 99.4 76 14 113/56 (75) 93 11/13/17 22:00 78 11/13/17 20:22 94 Simple Mask 8.00 11/13/17 20:00 98.9 75 18 109/65 (80) 95 11/13/17 20:00 75 11/13/17 18:00 79 11/13/17 16:00 79 18 117/53 (74) 88 11/13/17 16:00 77 11/13/17 15:30 78 22 124/65 (84) 87 11/13/17 15:00 79 19 112/70 (84) 91 11/13/17 14:30 68 17 115/59 (77) 96 11/13/17 14:00 71 18 112/58 (76) 95 11/13/17 14:00 79 11/13/17 13:30 71 19 114/58 (76) 95 11/13/17 13:00 69 17 123/59 (80) 96 Intake & Output 11/14/17 11/14/17 07:00 19:00 Intake Total 460 ml Output Total 1790 ml Balance -1330 ml Intake Oral 360 ml IV Total 100 ml Output Urine Total 1400 ml Chest Tube Drainage Total 160 ml Drainage Total 230 ml # Bowel Movements 0 Physical Exam CONSTITUTIONAL/GENERAL: This is an adequately nourished patient, in no apparent distress. TUBES/LINES/DRAINS: O2 face mask, PIV's, left IJ central line. Left-sided pigtail chest tube, biliary drain, Peña catheter, bilateral SCDs. SKIN: No jaundice, rashes, or lesions. Large areas of ecchymoses on bilateral upper extremities, right forearm and hand more than left. Skin temperature appropriate. Not diaphoretic. HEAD: Atraumatic. Normocephalic. EYES: Pupils equal and round and reactive. Extraocular motions intact. No scleral icterus. No injection or drainage. ENT: Hearing grossly normal. Nose without bleeding or purulent drainage. Moist oral mucosa. NECK: Trachea midline. Supple, nontender. CARDIOVASCULAR: Regular rate and rhythm. Warm bilateral extremities, no cyanosis noted. RESPIRATORY/CHEST: Symmetric, increased work of breathing well on O2. However, appears comfortable. GASTROINTESTINAL: Abdomen round, obese, nontender. No guarding. Bowel sounds present. GENITOURINARY: Without palpable bladder distension. Peña catheter in place. MUSCULOSKELETAL: Extremities without clubbing, cyanosis. Edema to bilateral lower extremities. NEUROLOGICAL: Awake and alert x self, place and situation. Follows commands. Verbal. Moves all extremities. PSYCHIATRIC: No obvious anxiety/depression. Pleasant. . Diagnostic Tests Laboratory Laboratory Tests Test 11/11/17 13:08 11/11/17 13:09 11/11/17 17:30 11/11/17 21:18 Blood Urea Nitrogen 64 MG/DL (7-18) Creatinine 1.86 MG/DL (0.60-1.30) Random Glucose 180 MG/DL (74-106) Total Protein 4.2 GM/DL (6.4-8.2) Albumin 2.0 GM/DL (3.4-5.0) Calcium Level 7.1 MG/DL (8.5-10.1) Phosphorus Level 6.3 MG/DL (2.5-4.9) Magnesium Level 2.6 MG/DL (1.5-2.5) Alkaline Phosphatase 47 U/L (45-117) Aspartate Amino Transf (AST/SGOT) 56 U/L (15-37) Alanine Aminotransferase (ALT/SGPT) 96 U/L (12-78) Total Bilirubin 3.4 MG/DL (0.2-1.0) Sodium Level 145 MEQ/L (136-145) Potassium Level 3.8 MEQ/L (3.5-5.1) Chloride Level 108 MEQ/L (98-107) Carbon Dioxide Level 16.5 MEQ/L (21.0-32.0) Anion Gap 21 MEQ/L (5-15) Estimat Glomerular Filtration Rate 36 ML/MIN (>89) Hemoglobin A1c 5.7 % (4.3-6.0) Protein Corrected Calcium 8.7 MG/DL (8.5-10.1) Free Thyroxine 0.97 NG/DL (0.76-1.46) Thyroid Stimulating Hormone 3rd Gen 0.625 uIU/ML (0.358-3.740) White Blood Count 15.2 TH/MM3 (4.0-11.0) 14.3 TH/MM3 (4.0-11.0) Red Blood Count 1.38 MIL/MM3 (4.50-5.90) 2.99 MIL/MM3 (4.50-5.90) Hemoglobin 4.2 GM/DL (13.0-17.0) 8.9 GM/DL (13.0-17.0) Hematocrit 13.1 % (39.0-51.0) 26.0 % (39.0-51.0) Mean Corpuscular Volume 94.8 FL (80.0-100.0) 86.7 FL (80.0-100.0) Mean Corpuscular Hemoglobin 30.5 PG (27.0-34.0) 29.7 PG (27.0-34.0) Mean Corpuscular Hemoglobin Concent 32.1 % (32.0-36.0) 34.2 % (32.0-36.0) Red Cell Distribution Width 14.3 % (11.6-17.2) 15.9 % (11.6-17.2) Platelet Count 151 TH/MM3 (150-450) 84 TH/MM3 (150-450) Mean Platelet Volume 11.3 FL (7.0-11.0) 10.8 FL (7.0-11.0) Neutrophils (%) (Auto) 90.5 % (16.0-70.0) 87.1 % (16.0-70.0) Lymphocytes (%) (Auto) 4.1 % (9.0-44.0) 6.9 % (9.0-44.0) Monocytes (%) (Auto) 5.3 % (0.0-8.0) 5.9 % (0.0-8.0) Eosinophils (%) (Auto) 0.0 % (0.0-4.0) 0.0 % (0.0-4.0) Basophils (%) (Auto) 0.1 % (0.0-2.0) 0.1 % (0.0-2.0) Neutrophils # (Auto) 13.8 TH/MM3 (1.8-7.7) 12.5 TH/MM3 (1.8-7.7) Lymphocytes # (Auto) 0.6 TH/MM3 (1.0-4.8) 1.0 TH/MM3 (1.0-4.8) Monocytes # (Auto) 0.8 TH/MM3 (0-0.9) 0.8 TH/MM3 (0-0.9) Eosinophils # (Auto) 0.0 TH/MM3 (0-0.4) 0.0 TH/MM3 (0-0.4) Basophils # (Auto) 0.0 TH/MM3 (0-0.2) 0.0 TH/MM3 (0-0.2) CBC Comment AUTO DIFF AUTO DIFF Differential Total Cells Counted 100 100 Neutrophils % (Manual) 90 % (16-70) 89 % (16-70) Band Neutrophils % 1 % (0-6) 4 % (0-6) Lymphocytes % 5 % (9-44) 4 % (9-44) Monocytes % 1 % (0-8) 2 % (0-8) Neutrophils # (Manual) 14.3 TH/MM3 (1.8-7.7) 13.4 TH/MM3 (1.8-7.7) Metamyelocytes 3 % (0-1) 1 % (0-1) Differential Comment FINAL DIFF MANUAL FINAL DIFF MANUAL Platelet Estimate NORMAL (NORMAL) LOW (NORMAL) Platelet Morphology Comment NORMAL (NORMAL) ENLARGED (NORMAL) Basophilic Stippling FAINT (NORMAL) FAINT (NORMAL) Activated Partial Thromboplast Time 69.7 SEC (24.3-30.1) 27.1 SEC (24.3-30.1) Reticulocyte Count 2.5 % (0.4-3.0) Absolute Reticulocyte Count 57.4 MIL/L (20.0-150.0) Haptoglobin 123 MG/DL (30-200) Prothrombin Time 14.0 SEC (9.8-11.6) Prothromb Time International Ratio 1.4 RATIO Fibrinogen 123 mg/dL (227-377) Lactic Acid Level 6.6 mmol/L (0.4-2.0) 3.2 mmol/L (0.4-2.0) Lactate Dehydrogenase 476 U/L (87-241) Nucleated Red Blood Cells 2 /100 WBC (0-0) Toxic Granulation (NORMAL) Test 11/12/17 04:15 11/12/17 05:30 11/12/17 11:13 11/12/17 22:30 White Blood Count 16.1 TH/MM3 (4.0-11.0) Red Blood Count 2.76 MIL/MM3 (4.50-5.90) Hemoglobin 8.3 GM/DL (13.0-17.0) 7.4 GM/DL (13.0-17.0) 8.4 GM/DL (13.0-17.0) Hematocrit 24.0 % (39.0-51.0) 21.8 % (39.0-51.0) 24.5 % (39.0-51.0) Mean Corpuscular Volume 86.9 FL (80.0-100.0) Mean Corpuscular Hemoglobin 30.3 PG (27.0-34.0) Mean Corpuscular Hemoglobin Concent 34.8 % (32.0-36.0) Red Cell Distribution Width 15.5 % (11.6-17.2) Platelet Count 89 TH/MM3 (150-450) Mean Platelet Volume 11.2 FL (7.0-11.0) Neutrophils (%) (Auto) 87.2 % (16.0-70.0) Lymphocytes (%) (Auto) 7.2 % (9.0-44.0) Monocytes (%) (Auto) 5.4 % (0.0-8.0) Eosinophils (%) (Auto) 0.0 % (0.0-4.0) Basophils (%) (Auto) 0.2 % (0.0-2.0) Neutrophils # (Auto) 14.1 TH/MM3 (1.8-7.7) Lymphocytes # (Auto) 1.2 TH/MM3 (1.0-4.8) Monocytes # (Auto) 0.9 TH/MM3 (0-0.9) Eosinophils # (Auto) 0.0 TH/MM3 (0-0.4) Basophils # (Auto) 0.0 TH/MM3 (0-0.2) CBC Comment AUTO DIFF Differential Total Cells Counted 100 Neutrophils % (Manual) 93 % (16-70) Band Neutrophils % 3 % (0-6) Lymphocytes % 2 % (9-44) Monocytes % 2 % (0-8) Neutrophils # (Manual) 15.5 TH/MM3 (1.8-7.7) Nucleated Red Blood Cells 5 /100 WBC (0-0) Differential Comment FINAL DIFF MANUAL Platelet Estimate LOW (NORMAL) Platelet Morphology Comment ENLARGED (NORMAL) Blood Urea Nitrogen 69 MG/DL (7-18) Creatinine 1.77 MG/DL (0.60-1.30) Random Glucose 103 MG/DL (74-106) Total Protein 4.5 GM/DL (6.4-8.2) Albumin 2.7 GM/DL (3.4-5.0) Calcium Level 7.4 MG/DL (8.5-10.1) Phosphorus Level 5.6 MG/DL (2.5-4.9) Magnesium Level 2.7 MG/DL (1.5-2.5) Alkaline Phosphatase 40 U/L (45-117) Aspartate Amino Transf (AST/SGOT) 63 U/L (15-37) Alanine Aminotransferase (ALT/SGPT) 96 U/L (12-78) Total Bilirubin 5.3 MG/DL (0.2-1.0) Sodium Level 146 MEQ/L (136-145) Potassium Level 3.6 MEQ/L (3.5-5.1) Chloride Level 110 MEQ/L (98-107) Carbon Dioxide Level 23.1 MEQ/L (21.0-32.0) Anion Gap 13 MEQ/L (5-15) Estimat Glomerular Filtration Rate 38 ML/MIN (>89) Protein Corrected Calcium 8.9 MG/DL (8.5-10.1) Prothrombin Time 12.6 SEC (9.8-11.6) Prothromb Time International Ratio 1.2 RATIO Activated Partial Thromboplast Time 23.5 SEC (24.3-30.1) Fibrinogen 153 mg/dL (227-377) Test 11/13/17 03:50 11/13/17 12:00 11/13/17 14:32 11/14/17 05:00 White Blood Count 14.8 TH/MM3 (4.0-11.0) 10.9 TH/MM3 (4.0-11.0) Red Blood Count 2.49 MIL/MM3 (4.50-5.90) 2.17 MIL/MM3 (4.50-5.90) Hemoglobin 7.7 GM/DL (13.0-17.0) 7.3 GM/DL (13.0-17.0) 6.9 GM/DL (13.0-17.0) Hematocrit 22.4 % (39.0-51.0) 21.5 % (39.0-51.0) 19.9 % (39.0-51.0) Mean Corpuscular Volume 89.8 FL (80.0-100.0) 91.7 FL (80.0-100.0) Mean Corpuscular Hemoglobin 30.8 PG (27.0-34.0) 31.9 PG (27.0-34.0) Mean Corpuscular Hemoglobin Concent 34.3 % (32.0-36.0) 34.8 % (32.0-36.0) Red Cell Distribution Width 14.9 % (11.6-17.2) 15.4 % (11.6-17.2) Platelet Count 69 TH/MM3 (150-450) 67 TH/MM3 (150-450) Mean Platelet Volume 11.2 FL (7.0-11.0) 10.7 FL (7.0-11.0) Neutrophils (%) (Auto) 92.2 % (16.0-70.0) 95.5 % (16.0-70.0) Lymphocytes (%) (Auto) 3.8 % (9.0-44.0) 1.7 % (9.0-44.0) Monocytes (%) (Auto) 3.9 % (0.0-8.0) 2.3 % (0.0-8.0) Eosinophils (%) (Auto) 0.0 % (0.0-4.0) 0.0 % (0.0-4.0) Basophils (%) (Auto) 0.1 % (0.0-2.0) 0.5 % (0.0-2.0) Neutrophils # (Auto) 13.7 TH/MM3 (1.8-7.7) 10.4 TH/MM3 (1.8-7.7) Lymphocytes # (Auto) 0.6 TH/MM3 (1.0-4.8) 0.2 TH/MM3 (1.0-4.8) Monocytes # (Auto) 0.6 TH/MM3 (0-0.9) 0.3 TH/MM3 (0-0.9) Eosinophils # (Auto) 0.0 TH/MM3 (0-0.4) 0.0 TH/MM3 (0-0.4) Basophils # (Auto) 0.0 TH/MM3 (0-0.2) 0.1 TH/MM3 (0-0.2) CBC Comment AUTO DIFF AUTO DIFF Differential Comment AUTO DIFF CONFIRMED AUTO DIFF CONFIRMED Platelet Estimate LOW (NORMAL) LOW (NORMAL) Platelet Morphology Comment NORMAL (NORMAL) NORMAL (NORMAL) Blood Urea Nitrogen 60 MG/DL (7-18) 49 MG/DL (7-18) Creatinine 1.56 MG/DL (0.60-1.30) 1.23 MG/DL (0.60-1.30) Random Glucose 97 MG/DL (74-106) 116 MG/DL (74-106) Total Protein 4.5 GM/DL (6.4-8.2) 4.7 GM/DL (6.4-8.2) Albumin 2.5 GM/DL (3.4-5.0) Calcium Level 7.0 MG/DL (8.5-10.1) 7.4 MG/DL (8.5-10.1) Alkaline Phosphatase 39 U/L (45-117) Aspartate Amino Transf (AST/SGOT) 58 U/L (15-37) Alanine Aminotransferase (ALT/SGPT) 79 U/L (12-78) Total Bilirubin 5.2 MG/DL (0.2-1.0) Sodium Level 147 MEQ/L (136-145) 148 MEQ/L (136-145) Potassium Level 3.8 MEQ/L (3.5-5.1) 3.8 MEQ/L (3.5-5.1) Chloride Level 111 MEQ/L (98-107) 112 MEQ/L (98-107) Carbon Dioxide Level 26.4 MEQ/L (21.0-32.0) 27.1 MEQ/L (21.0-32.0) Anion Gap 10 MEQ/L (5-15) 9 MEQ/L (5-15) Estimat Glomerular Filtration Rate 44 ML/MIN (>89) 59 ML/MIN (>89) Protein Corrected Calcium 8.4 MG/DL (8.5-10.1) 8.8 MG/DL (8.5-10.1) Pleural Fluid WBC 10 /MM3 (0-10) Pleural Fluid RBC 5940 /MM3 (0-0) Pleural Fluid Neutrophils 12 % Pleural Fluid Lymphocytes 68 % Pleural Fluid Histiocytes 8 % Pleural Fluid Mesothelial Cells 12 % Pleural Fluid Comment Pleural Fluid Total Protein 0.8 GM/DL Pleural Fluid LDH 96 U/L Pleural Fluid Glucose 111 MG/DL Result Diagram: 11/14/17 0500 11/14/17 0500 Microbiology Microbiology Date/Time Source Procedure Growth Status 11/13/17 12:00 Fluid Pleural Fluid Gram Stain - Final Resulted 11/13/17 12:00 Fluid Pleural Fluid Body Fluid Culture Pending Resulted Imaging Last 24 hours Impressions Chest X-Ray 11/14/17 0000 Signed Impressions: CONCLUSION: Stable mild basilar airspace disease with small effusions. Procedures * 10/31/17: Endotracheal intubation * 11/01/17: Biliary drain placement * 11/07/17: Extubation * 11/13/17: Left-sided pigtail chest tube . Assessment and Plan Disease Oriented Problem List: (1) Sepsis (2) Pneumonia (3) Choledocholithiasis (4) Retroperitoneal bleed (5) COPD (chronic obstructive pulmonary disease) (6) Acute blood loss anemia (7) Acute renal failure (8) Peripheral vascular disease (9) CKD (chronic kidney disease) stage 4, GFR 15-29 ml/min (10) Ischemia of left lower extremity (11) Physical deconditioning Symptom Scale: (1) Dyspnea 0-10 Scale: Unable to quantify (2) Pain 0-10 Scale: Unable to quantify (3) Debility 0-10 Scale: Unable to quantify Pertinent Non-Medical Issues Psychosocial: Patient originally from [facility]. Moved to [place] 6 years ago. He is , has 3 biological children. 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 No service. Spiritual: No voodoo affiliation. Legal: Advance directives completed. Ethical issues impacting care: No ethical issues identified. . Important Contacts Sister/healthcare surrogate: Jennifer Morrisonelaine . Prognosis Mr. Bates is a 67-year-old male with a medical history significant for COPD, hypertension, CAD and peripheral vascular disease. Patient presented to ED via EMS on 10/28/17 for evaluation of shortness of breath and pain to his left leg. He was found with occlusion of left iliac artery, not a surgical candidate secondary to sepsis, pneumonia and respiratory failure. Clinical course complicated by acute on chronic renal failure, choledocholithiasis requiring biliary drain placement, retroperitoneal bleed with development of hemorrhagic shock. Patient remains in critical condition, high risk for further complications, decline and . Overall prognosis is guarded. . Code Status: Alternative Code Plan * CODE STATUS: Alternate code, intubation only. * HEALTHCARE DECISION-MAKING: Patient participating medical decision making, however, intermittent confusion secondary to encephalopathy/acute illness. Advanced directives completed, patient designated his sister Jennifer Galeas as healthcare surrogate decision maker. No alternate surrogate designated. Palliative care recommends shared decision making with patient and sister given intermittent confusion. In addition, patient appears to rely on sister for guidance. * GOALS OF CARE: Patient supported by Sister Jennifer electing continuation of aggressive management short of NO cardiac resuscitation. Sister wishing to allow a few more days for clinical improvement, maximize medical management. Gently shared concerns with sister regarding patient's guarded prognosis and high risk for further complications, progressive decline and . Patient and sister receptive to palliative care follow-up. * SYMPTOMS: = Dyspnea: Multifactorial secondary to COPD, acute illness, physical deconditioning, anemia -retroperitoneal hematoma. Currently on 6 L O2 via simple mask. Currently on Solu-Medrol 40 mg every 8 hours. = Pain: Secondary to multiple lines, prolonged hospitalization/Bedrest. [place] 7.5/325 mg available as needed. Has received 1 dose in the past 24 hours. No further recommendations. = Debility: Secondary to prolonged hospitalization and acute on chronic illness. Likely to continue to worsen. PT following, PT at rehab recommended. * Spiritual services offered and accepted. Referral made to polisher num[facility] Carranza. * Palliative care contact information has been provided to patient and family. * Palliative care will continue to follow up for further clarification of goals of care as patient's clinical course continues to evolve. . Time Spent Total Floor Time (mins): 26 (Total time to include review of medical records, physical exam, goals of care conversation with patient.) >50% Counseling/Coord of Care: Yes Attestation To help prompt me to consider important information that might be impacting today's encounter and assessment, information from prior notes written by myself or my colleagues may have been "brought forward" into today's note. My signature on this note, however, is an attestation that I personally performed the exam, history, and/or decision-making noted today, and, unless otherwise indicated, the interactions with patient, family, and staff as well as the review of records all occurred today. I also attest that the listed assessment and stated plan reflect my best clinical judgment today based on the combination of historical information, prior notes, and today's exam/ interactions. When time spent is documented, it refers only to time spent today by the signer, or if indicated, combined time spent today by collaborating physician/nurse practitioner. Nancy Encarnacion Nov 14, 2017 12:57
--- NOTE | 2017-11-14 13:09 | HHI.CCPN ---
Subjective Remarks/Hospital Course 67-year-old male presents to the emergency department via EMS for evaluation of shortness of breath and pain and numbness to the left leg. Patient believes that he is shortness of breath is related to the pain in his leg. He cannot feel his leg from his groin down. He denies any history of the same. He does report history of COPD. He denies any known fevers or chills. He denies chest pain. Patient received 1 L normal saline bolus via EMS. Patient denies any history of bleeding or blood clots. No recent surgery or travel. No hemoptysis. No history of DVT/PE. He denies leg edema. Patient states the pain is 10/10 to the left leg. No exacerbating or alleviating factors. Moderate severity. 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 The right inflow is heavily diseased as well. The patient was evaluated by vascular surgeon preschool education director and was immediately started on heparin drip. SUBJ 10/29: Remains critically ill, encephalopathy. 4 out of 4 bottles positive for GNR. I will change Rocephin to Zosyn renally dosed to cover for Pseudomonas also. Continue azithromycin. Creatinine still elevated but slightly improved. WBC count slightly increased 17.2 now with 24% bands. Source of GNR sepsis could be either UTI or pneumonia. Will consult ID as well. Remains on IV heparin for acute left limb ischemia 10/30: platelets falling >50% again today. Cr still rising, but could be ATN/ contrast nephropathy. blood cultures growing e. coli by PCR, full speciation to follow. urine culture pending. discussed case with Dr. Lopez, will stop heparin , start argatroban and send HIT/CHARLEEN. denies complaints for me, but does have objective tenderness on palpation, RUQ. 10/31: Emergently intubated today a.m. by Dr. Puckett for worsening mental status, encephalopathy and worsening respiratory failure. Prior to intubation Dr. Puckett ' exam revealed right upper quadrant tenderness. Ultrasound of the gallbladder yesterday showed gallstones. Overnight Argatroban was supratherapeutic and was held, platelet count also dropped to 30,000, HIT screen is pending. Postintubation bilateral pupils are reactive but unequal. Will repeat CT of the head, CT abdomen pelvis. BUN 49/Creat 2.7, leukocytosis persisting 11/01: no improvements. ct abd/pelvis with evidence of possible choledocholithiasis. perc doug tube planned for this AM. on esmolol infusion for afib RVR. fio2 increased to 70%. 11/02: Sodium bicarbonate infusion continued per nephrology in the setting of rhabdomyolysis serial creatinine kinase pending. Cholecystostomy drain placement 100 cc overnight. Continued thrombocytopenia, CBC, serotonin release assay pending. Plan for reinitiation of heparin awaiting GI consultation for possible invasive procedures prior to restarting heparin. Patient sinus rhythm with occasional PAC's. 11/03: No acute events overnight. Sodium bicarbonate infusion discontinued this a.m. had any improved this a.m.. Chest x-ray showed worsening consolidation, FiO2 requirements were increased to 65% during the night. CPAP trials on hold currently. Biliary drainage from cholecystostomy tube revealing gram-negative rods. The patient continues on antibiotics. Bilateral dorsalis pedis pulses monophasic signals by Doppler. Heparin infusion reinitiated. 11/04: Sodium bicarbonate infusion discontinued at 7 AM yesterday. Chest x-ray worsening consolidation versus pleural effusions. FiO2 slightly decreased to 60 %, ABG improving. Pending quantification via ultrasound of pleural fluid in am. Lasix 40mg x1 additional dose provided today . PPN discontinued discussed with Dr. Colon tube feeds [facility]. Dietary consult ordered. 11/05: Afebrile. Patient tolerating tube feeds advanced to goal rate of 55 cc/ hr. chest x-ray with slight improvement FiO2 decreased to 55% ABG pending. Initiation of CPAP trial to be attempted today. 11/06: Late entry note. Patient seen at 628am. Patient was started on CPAP and continues on CPAP greater than 10 hours. Patient following commands, currently on Precedex infusion. 11/07: Patient remained on CPAP trials for approximately 12 hours yesterday and discontinued because of agitation. CPAP trials reinitiated this a.m. Patient complaint of sore throat Lortab ordered. Patient continues on Precedex for ventilator weaning process. Chest x-ray still shows pulmonary edema, additional dose Lasix 401 dose given this a.m.. When infusion continued, monophasic Doppler signals bilateral dorsalis pedal pulses noted. 11/08: Afebrile . Patient successfully extubated yesterday. Remains on O2 at 4 L nasal cannula O2 saturation 94-95%. Patient continues on heparin infusion, she was noted to have 9 BMs last evening plan for serial H&H's concern for possible stool with occult blood. Repeat stool for occult blood. Plan for possible bedside thoracentesis ,if respiratory requirements increase, currently on O2 4 L via nasal cannula in no apparent distress. 11/11 Late entry, notified of re-consult at 17:[address] Johnson, saw patient and immediately placed L IJ CVL because patient had ripped out an IV and had insufficient peripheral IV access given clinical condition. RN states patient had Hgb 7.5 this morning. Trend was unusual with Hb 8.3--> 12.5 (without transfusion)-->7.5 and lab recommended repeat. Repeat was drawn and was 4.2. Meanwhile, while awaiting re-draw patient became hypotensive, MAP down in the 40s, and was given albumin 25 gram IV. Now he has received 1 unit PRBC and BP improved to 120s/60s. Getting 2 additional units of PRBC stat. Nurse states heparin has been off since 12:30. Sending stat coags/fibrinogen. Patient denies nausea or vomiting. He has some right-sided abdominal pain. There is dark brown drainage from cholecystostomy tube. He has not had a bowel movement in 48 hours. No obvious evidence of GI bleeding. CT abdomen and pelvis has been ordered as "urgent", now giving additional PRBC and then will obtain stat. Gastroenterology has been following and I have notified them of the anemia, though this does not appear to be GI source at this time. 11/12 CT last night showed large retroperitoneal hematoma. Transfused total of 3 units PRBC yest evening. Hgb now 8.3. Coags/fibrinogen in acceptable range this morning, heparin drip off. Patient states much less abdominal pain today. He is alert and oriented now. Coughing, O2 requirement up to 6 L NC, afebrile. Subjective: 11/13 Had some hemoptysis yesterday. CT with bilateral pleural effusions/ LLL atelectasis vs infiltrate. Now on 8 L SM, tachypneic with more labored breathing today. Edematous, will diurese. He is alert and capacitated currently and agrees to L pleural drainage. Transfused 1 unit PRBC yesterday for Hgb 7.4. He still has some Right sided abdominal pain 11/14: Resting in bed on simple facemask. Hemoglobin 6.9 this morning. Patient denies any worsening shortness of breath or chest pain. 1 unit PRBCs being transfused. Left-sided pigtail catheter placed 11/13 drain 650 cc Objective Vital Signs Date Time Temp Pulse Resp B/P (MAP) Pulse Ox O2 Delivery O2 Flow Rate FiO2 11/14/17 12:00 69 11/14/17 12:00 98.5 12 153/90 (111) 98 11/14/17 07:52 Simple Mask 8.00 Intake and Output 11/14/17 11/14/17 11/15/17 08:00 16:00 00:00 Intake Total 410 ml Output Total 1790 ml Balance -1380 ml Result Diagram: 11/14/17 0500 11/14/17 0500 Imaging Current Medications Medications (Trade) Dose Ordered Sig/Olesya Route Start Time Stop Time Status Last Admin (NS Flush) 2 ml UNSCH PRN IV FLUSH 10/28/17 22:15 (NS Flush) 2 ml BID IV FLUSH 10/29/17 09:00 11/07/17 19:41 (Tylenol) 650 mg Q6H PRN PO 10/28/17 22:15 (Dilaudid Pf Inj) 1 mg Q4H PRN IV 10/28/17 22:30 11/07/17 05:15 (Zofran Inj) 4 mg Q6H PRN IV PUSH 10/28/17 22:15 (Restoril) 15 mg HS PRN PO 10/28/17 22:15 Future Hold (Duoneb Neb) 1 ampule Q2HR NEB PRN INH 10/28/17 22:15 11/08/17 08:15 ([facility]) 1 Q361D XX 10/28/17 22:15 10/28/17 22:15 (Chlorhexidine 2% Cloth) Taper DAILY@04 TOP 10/29/17 04:00 10/25/18 03:59 11/08/17 04:00 (Chlorhexidine 2% Cloth) 3 pack UNSCH PRN TOP 10/28/17 22:15 (Elvira-Colace) 1 tab BID PO 10/29/17 09:00 11/07/17 08:21 (Milk Of Magnesia Liq) 30 ml Q12H PRN PO 10/28/17 22:15 (Senokot) 17.2 mg Q12H PRN PO 10/28/17 22:15 (Dulcolax Supp) 10 mg DAILY PRN RECTAL 10/28/17 22:15 (Lactulose Liq) 30 ml DAILY PRN PO 10/28/17 22:15 (SoluMEDROL INJ) 40 mg Q6HR IV PUSH 10/29/17 00:00 11/08/17 05:11 (Cardizem Cd) 240 mg DAILY PO 10/29/17 09:00 Future Hold 10/30/17 09:02 (Aspirin Chew) 81 mg DAILY CHEW 10/29/17 11:45 Future hold 11/07/17 08:21 (Brethine Inj) 1 mg UNSCH PRN SQ 10/31/17 06:15 (Peridex 0.12% Liq) 15 ml BID@08,20 MT 10/31/17 08:00 11/07/17 08:21 (Apresoline Inj) 20 mg Q4H PRN IV PUSH 11/02/17 14:00 (Catapres) 0.1 mg Q6H PRN PO 11/02/17 23:45 11/04/17 02:35 Heparin Sodium/ Dextrose 250 ml @ 12 mls/hr TITRATE PRN IV 11/03/17 07:00 11/07/17 23:52 (Apresoline) 25 mg Q8HR PO 11/03/17 14:00 11/08/17 05:11 (Lasix Inj) 40 mg DAILY IV PUSH 11/03/17 13:00 11/07/17 08:21 (Trandate) 100 mg Q12HR PO 11/04/17 21:00 11/07/17 19:41 (Mucomyst 20% Neb) 2 ml Q6HR NEB NEB 11/05/17 10:00 11/08/17 08:15 Ampicillin Sodium/ Sulbactam Sodium 3 gm/Sodium Chloride 100 ml @ 200 mls/hr Q6H IV 11/05/17 20:00 11/08/17 01:24 (Pepcid Inj) 20 mg Q12HR IV PUSH 11/06/17 21:00 11/07/17 19:41 ([place] 7.5-325 Mg) 1 tab Q6H PRN PO 11/07/17 08:00 11/07/17 09:06 Last Impressions Chest X-Ray 11/07/17 0600 Signed Impressions: CONCLUSION: No appreciable change. Percutaneous Cholangiogram 11/01/17 Signed Impressions: CONCLUSION: 1. Uncomplicated percutaneous cholecystostomy as above. Abdomen/Pelvis CT 11/01/17 Signed Impressions: CONCLUSION: 1. Gallstones. There do appear to be areas of increased density within the com mon bile duct concerning for choledocholithiasis. 2. 4 mm nonobstructing left renal stone. 3. Sigmoid colon diverticula. 4. Bibasilar areas of consolidation or atelectasis being worse on the left wit h mild bilateral pleural effusions. Renal Ultrasound 10/31/17 Signed Impressions: CONCLUSION: 1. No hydronephrosis. 2. Increased cortical echogenicity consistent with medical renal disease. Head Magnetic Resonance Angiography 10/31/17 Signed Impressions: CONCLUSION: 1. Unremarkable MRA of the brain. Head CT 10/31/17 Signed Impressions: CONCLUSION: 1. Negative CT Head non contrast. 2. No evidence of acute infarct, hemorrhage, mass or edema. Brain MRI 10/31/17 Signed Impressions: CONCLUSION: 1. Senescent changes with minimal periventricular ischemic white matter demyel ination. 2. No acute abnormality. Specifically, no acute infarction, mass or hemorrhage . Gall Bladder Ultrasound 10/30/17 Signed Impressions: CONCLUSION: 1. Fatty infiltration of the liver. 2. Multiple stones in the gallbladder. No biliary tract obstruction. Extremity Arterial Study 10/28/17 Signed Impressions: CONCLUSION: 1. Abnormal ABIs, left greater than right. The left DAVID is significantly dimin ished at 0.14. Aorta w/Runoff CTA 10/28/17 Signed Impressions: Service Date/Time: Saturday, October 28, 2017 21:50 - CONCLUSION: 1. Acute occlusion of the left inflow with concern for short segment occlusion involving the distal right inflow. This raises concern for an embolic event. 2. Right lower extremity shows scattered disease throughout the common femoral artery, SFA and [id number] popliteal artery with three-vessel runoff to the foot. 3. Left lower extremity with reconstitution of the common femoral artery with diseased out flow and two vessel runoff to the foot as detailed above. 4. 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 5. Hepatic steatosis. 6. Cholelithiasis. Juanjose Mckeon Jr., MD Last Impressions Chest X-Ray 11/03/17 0600 Signed Impressions: CONCLUSION: Worsening parenchymal consolidation and small effusions at each lung base. Percutaneous Cholangiogram 11/01/17 Signed Impressions: CONCLUSION: 1. Uncomplicated percutaneous cholecystostomy as above. Abdomen/Pelvis CT 11/01/17 Signed Impressions: CONCLUSION: 1. Gallstones. There do appear to be areas of increased density within the com mon bile duct concerning for choledocholithiasis. 2. 4 mm nonobstructing left renal stone. 3. Sigmoid colon diverticula. 4. Bibasilar areas of consolidation or atelectasis being worse on the left wit h mild bilateral pleural effusions. Renal Ultrasound 10/31/17 Signed Impressions: CONCLUSION: 1. No hydronephrosis. 2. Increased cortical echogenicity consistent with medical renal disease. Head Magnetic Resonance Angiography 10/31/17 Signed Impressions: CONCLUSION: 1. Unremarkable MRA of the brain. Head CT 10/31/17 Signed Impressions: CONCLUSION: 1. Negative CT Head non contrast. 2. No evidence of acute infarct, hemorrhage, mass or edema. Brain MRI 10/31/17 Signed Impressions: CONCLUSION: 1. Senescent changes with minimal periventricular ischemic white matter demyel ination. 2. No acute abnormality. Specifically, no acute infarction, mass or hemorrhage . Gall Bladder Ultrasound 10/30/17 Signed Impressions: CONCLUSION: 1. Fatty infiltration of the liver. 2. Multiple stones in the gallbladder. No biliary tract obstruction. Extremity Arterial Study 10/28/17 Signed Impressions: CONCLUSION: 1. Abnormal ABIs, left greater than right. The left DAVID is significantly dimin ished at 0.14. Aorta w/Runoff CTA 10/28/17 Signed Impressions: Service Date/Time: Saturday, October 28, 2017 21:50 - CONCLUSION: 1. Acute occlusion of the left inflow with concern for short segment occlusion involving the distal right inflow. This raises concern for an embolic event. 2. Right lower extremity shows scattered disease throughout the common femoral artery, SFA and [id number] popliteal artery with three-vessel runoff to the foot. 3. Left lower extremity with reconstitution of the common femoral artery with diseased out flow and two vessel runoff to the foot as detailed above. 4. 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 5. Hepatic steatosis. 6. Cholelithiasis. Juanjose Mckeon Jr., MD Last Impressions Percutaneous Cholangiogram 11/01/17 Signed Impressions: CONCLUSION: 1. Uncomplicated percutaneous cholecystostomy as above. Abdomen/Pelvis CT 11/01/17 Signed Impressions: CONCLUSION: 1. Gallstones. There do appear to be areas of increased density within the com mon bile duct concerning for choledocholithiasis. 2. 4 mm nonobstructing left renal stone. 3. Sigmoid colon diverticula. 4. Bibasilar areas of consolidation or atelectasis being worse on the left wit h mild bilateral pleural effusions. Renal Ultrasound 10/31/17 Signed Impressions: CONCLUSION: 1. No hydronephrosis. 2. Increased cortical echogenicity consistent with medical renal disease. Head Magnetic Resonance Angiography 10/31/17 Signed Impressions: CONCLUSION: 1. Unremarkable MRA of the brain. Head CT 10/31/17 Signed Impressions: CONCLUSION: 1. Negative CT Head non contrast. 2. No evidence of acute infarct, hemorrhage, mass or edema. Chest X-Ray 10/31/17 Signed Impressions: CONCLUSION: Satisfactory position of endotracheal and nasogastric tubes. Increasing airspace disease and bilateral effusions. Brain MRI 10/31/17 Signed Impressions: CONCLUSION: 1. Senescent changes with minimal periventricular ischemic white matter demyel ination. 2. No acute abnormality. Specifically, no acute infarction, mass or hemorrhage . Gall Bladder Ultrasound 10/30/17 Signed Impressions: CONCLUSION: 1. Fatty infiltration of the liver. 2. Multiple stones in the gallbladder. No biliary tract obstruction. Extremity Arterial Study 10/28/17 Signed Impressions: CONCLUSION: 1. Abnormal ABIs, left greater than right. The left DAVID is significantly dimin ished at 0.14. Aorta w/Runoff CTA 10/28/17 Signed Impressions: Service Date/Time: Saturday, October 28, 2017 21:50 - CONCLUSION: 1. Acute occlusion of the left inflow with concern for short segment occlusion involving the distal right inflow. This raises concern for an embolic event. 2. Right lower extremity shows scattered disease throughout the common femoral artery, SFA and [id number] popliteal artery with three-vessel runoff to the foot. 3. Left lower extremity with reconstitution of the common femoral artery with diseased out flow and two vessel runoff to the foot as detailed above. 4. 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 5. Hepatic steatosis. 6. Cholelithiasis. Juanjose Mckeon Jr., MD Last 24 hours Impressions Chest X-Ray 10/28/172010 Signed Impressions: Service Date/Time: Saturday, October 28, 2017 20:20 - CONCLUSION: Left lower lobe infiltrate. Mild cardiomegaly. Juanjose Mckeon Jr., MD Objective Remarks GENERAL: This is a well-developed undernourished middle-aged male, sitting up in bed, alert and conversant now. SKIN: Warm and dry. HEAD: Normocephalic. ENT: No scleral icterus. No injection or drainage. Pupils are now equal at 3mm, reactive. On simple mask. NECK: Supple, trachea midline. No JVD. CARDIOVASCULAR: Regular, rate in the 70s. No murmurs rubs or gallops. RESPIRATORY: Tachypneic with labored breathing. Coarse breath sounds bilaterally , diminished bibasilar. GASTROINTESTINAL: Abdomen soft, mildly distended, tender in right abdomen but no rebound or guarding, less tender compared with yesterday., bowel sounds hypoactive. Cholecystostomy tube is in place draining dark brown fluid. No flank hematoma. : Peña in place with dark yellow urine output MUSCULOSKELETAL: No cyanosis, 1+ bipedal edema. Bilateral DP with Doppler pulses. Discoloration of left fifth toe. 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 NEURO EXAM: Eyes open, makes eye contact. Oriented to person, place, year. Moves all extremities with no focal deficit A/P Assessment and Plan ASSESSMENT/PLAN: NEURO: Acute metabolic encephalopathy, improved -Lortab as needed for pain -10/31 CT of the head- negative -10/31MRIminimal periventricular ischemic white matter change no acute abnormality RESP: COPD exacerbation, resolved Left lower lobe pneumonia, resolved ARDS, resolved Respiratory distress Bilateral pleural effusions. -Emergently intubated and placed on mechanical ventilation 10/31/2017. Extubated 11/07/17. -Now increased O2 requirement, labored breathing. L pigtail chest tube placed with initially 600 mL of serosanginous output. Respiratory status improved. F/u pleural fluid studies. Continue Symbicort 160/4.52 puffs inhaled every 12 hours Incentive spirometry every hour awake Wean Solumedrol to [address] Johnson following CVS: Hemorrhagic shock, resolved. Secondary to R retroperitoneal hematoma Lactic acidemia Acute on chronic left limb ischemia, improved Paroxysmal atrial fibrillation HTN -CTA showed severe aorto-iliac occlusive disease with left iliac thrombosis. Dr. Lopze evaluated, may need ax-fem bypass at some point but not during this hospitalization. -No longer a candidate for anticoagulation, ASA/Plavix recommended when patient stabilized. Now off antiplatelets both due to large RP bleed and now planned ERCP. -Significant calcifications and peripheral vascular disease -2D echo: EF 50%, no significant valvular lesions. left sided pleural effusion -HIT screen negative. CHARLEEN -negative kvo ivf. GI Acute hepatic dysfunction Hyperbilirubinemia Transaminitis Acute Choledocholithiasis R retroperitoneal hematoma -Trend LFTs, gallbladder ultrasound showed multiple gallstones -Repeat CT abdomen/pelvis 11/01: c/w choledocholithiasis - GI consult. 11/02-Dr. Cam[place], - Perc cholecystostomy tube placed 11/01 by IR. -Eventual cholecystectomy when stabilized. Dr. Martins has seen. -GI planning tentatively for ERCP on Wednesday 10/18, must be off antiplatelet therapy x5 days per GI. Discussed 11/13. -Acute hemorrhagic shock on 11/11 while on heparin drip, transfused [address] with large R retroperitoneal hematoma. Manage medically, IR drain if e/o infection. Gen Surgery following. FEN/RNEAL Acute kidney injury Acute metabolic acidosis Initial DEBORA on admission improve Lasix 40 mg IV q12. Nephrology has signed off. ID E COLI bacteremia/severe sepsis, resolved Enterococcus in the urine: possible colonization vs. UTI. Acute Choledocholithiasis/ Cholangitis Biliary fluid gram-negative rods Cholecystostomy placed 11/01. Continue antibiotics per ID: Unasyn HEME: Acute blood loss anemia acute thrombocytopenia: Initially consumptive secondary to sepsis earlier during admission. Now consumptive secondary to acute blood loss. Transfuse as indicated for platelet count less than 50 or if her current episode of bleeding and need for large-volume transfusion - HIT negative. CHARLEEN negative 10/30. Heparin on hold since 12: 30 11/11. Monitor coags, transfuse blood products as indicated. 1 unit PRBCs ordered for hemoglobin 6.9 on 11/14. DVT GI prophylaxis -Vickey's and SCDs -Heparin infusion on hold due to bleeding. ACCESS: . Placed emergent left IJ central venous line 11/11 #3 Patient states he agrees to reintubation if needed. In the setting of pulseless arrest he would not want CPR, shocks, intubation, ACLS drugs. CODE STATUS is alternate code intubation only. Patient's sister states that he has designated her as healthcare surrogate. He has advanced directives. Palliative care consulted and held meeting with sister today. Level 3 f/u. Alex Sargent MD Nov 14, 2017 13:09
--- NOTE | 2017-11-14 18:21 | HHI.PR ---
Subjective Remarks 67 YOWM with COPD,Sepsis, ischemia of leg Developed RF, intubated mild sob cough, occ sp No Fever had Left chest cathetor placed Improvement in breathing on Oxymask had [address] fluid cultures neg Objective Vital Signs Vital Signs Date Time Temp Pulse Resp B/P (MAP) Pulse Ox O2 Delivery O2 Flow Rate FiO2 11/14/17 18:00 84 11/14/17 17:00 83 11/14/17 16:00 98.3 75 19 142/81 (101) 97 11/14/17 16:00 75 11/14/17 15:00 73 11/14/17 14:05 98.5 76 19 133/68 99 11/14/17 14:00 72 11/14/17 13:50 98.3 75 16 136/63 97 11/14/17 13:00 78 11/14/17 12:00 69 11/14/17 12:00 98.5 69 12 153/90 (111) 98 11/14/17 11:00 70 11/14/17 10:00 68 11/14/17 09:00 66 11/14/17 08:00 66 11/14/17 08:00 98.7 66 13 138/63 (88) 95 11/14/17 07:52 95 Simple Mask 8.00 11/14/17 07:00 68 11/14/17 06:00 73 11/14/17 04:00 66 11/14/17 04:00 98.5 66 14 107/59 (75) 96 11/14/17 02:00 76 11/14/17 00:00 76 11/14/17 00:00 99.4 76 14 113/56 (75) 93 11/13/17 22:00 78 11/13/17 20:22 94 Simple Mask 8.00 11/13/17 20:00 98.9 75 18 109/65 (80) 95 11/13/17 20:00 75 I/O 11/13/17 11/13/17 11/13/17 11/14/17 11/14/17 11/14/17 07:00 15:00 23:00 07:00 15:00 23:00 Intake Total 3469 ml 250 ml 410 ml 1495 ml Output Total 870 ml 2200 ml 1790 ml 1830 ml Balance 2599 ml -1950 ml -1380 ml -335 ml Intake Oral 200 ml 360 ml 1080 ml IV Total 3469 ml 50 ml 50 ml Packed Cells 400 ml Blood Product IV Normal Saline Flush 15 ml Output Urine Total 800 ml 2200 ml 1400 ml 1550 ml Chest Tube Drainage Total 160 ml 150 ml Drainage Total 70 ml 230 ml 130 ml # Bowel Movements 0 0 0 Result Diagram: 11/14/17 0500 11/14/17 0500 Objective Remarks GENERAL: WBWN WM, mild sob SKIN: Warm and dry. HEAD: Normocephalic. EYES: No scleral icterus. No injection or drainage. NECK: Supple, trachea midline. No JVD or lymphadenopathy. CARDIOVASCULAR: Regular rate and rhythm without murmurs, gallops, or rubs. RESPIRATORY: Breath sounds equal bilaterally. No accessory muscle use. GASTROINTESTINAL: Abdomen soft, non-tender, nondistended. MUSCULOSKELETAL: No cyanosis, or edema. Cold left leg BACK: Nontender without obvious deformity. No CVA tenderness. A/P Assessment and Plan IMPRESSION: 1. Sepsis. 2. Chronic obstructive pulmonary disease, mild exacerbation. 3. Left basilar infiltrate. 4. Urinary tract infection 5. Encephalopathy. 6. Cold left leg. 7. Thrombocytopenia. 8. VDRF--extubated 11/07 9. Severe anemia, retroperitoneal bleed PLAN: Cont Abx per ID Monitor renal functions Supplement 02 with Oxymask Encourage PO DW RN at BS Monitor H/H Chest tube to suction. Dennis Johnson MD Nov 14, 2017 18:21
[2017-11-14] MEDS ORDERED: RESP: ALBUTEROL 2.5 MG/3 ML NEB (PRN) NEB (22:00)
[2017-11-15] VITALS (14 sets, daily range): BP systolic 128–151; BP diastolic 66–91; PULSE 67–85; RESP 13–24; TEMP 98.3–98.9; O2SAT 86–98
[2017-11-15] MEDS: ALBUMIN 25% INJ 50 ML IV SCH ×4 (00:24→20:32)
[2017-11-15] MEDS: CHLORHEXIDINE GLUCONATE 2 % 1 PACK (2 CLOTHS) TOP SCH (04:00)
[2017-11-15] MEDS: methylPREDNISolone SOD SUCC 40 MG/1 ML VIAL IV PUSH SCH ×2 (06:17→10:34)
[2017-11-15] MEDS: hydrALAZINE HCL 25 MG TAB PO SCH ×3 (06:17→23:00)
[2017-11-15] MEDS: RESP: ALBUTEROL 2.5 MG/IPRATROPIUM 0.5 MG NEB (SCH) NEB ×3 (07:54→19:53)
[2017-11-15] MEDS: CHLORHEXIDINE 0.12% (ORAL KIT) 15 ML CUP MT SCH ×2 (08:00→20:00)
[2017-11-15] MEDS: FAMOTIDINE 20 MG TAB PO SCH ×2 (10:33→20:32)
[2017-11-15] MEDS: DILTIAZEM-CD 240 MG CAP ER PO SCH (10:33)
[2017-11-15] MEDS: SODIUM CHLORIDE 0.9% FLUSH 10 ML FLUSH IV FLUSH SCH ×2 (10:34→20:33)
[2017-11-15] MEDS: FUROSEMIDE 40 MG/4 ML VIAL IV PUSH SCH ×2 (10:34→20:33)
[2017-11-15] MEDS: guaiFENesin E.R. 600 MG TAB PO SCH ×2 (10:34→20:32)
[2017-11-15] MEDS: NYSTATIN SUSP 500,000 U/5 ML CUP SWISH-SWAL SCH ×4 (10:34→20:33)
[2017-11-15] MEDS: BUDESONIDE-FORMOTEROL 160/4.5 MCG INHALER INH SCH ×2 (10:36→20:34)
--- NOTE | 2017-11-15 12:26 | HHI.CCPN ---
Subjective Remarks/Hospital Course 67-year-old male presents to the emergency department via EMS for evaluation of shortness of breath and pain and numbness to the left leg. Patient believes that he is shortness of breath is related to the pain in his leg. He cannot feel his leg from his groin down. He denies any history of the same. He does report history of COPD. He denies any known fevers or chills. He denies chest pain. Patient received 1 L normal saline bolus via EMS. Patient denies any history of bleeding or blood clots. No recent surgery or travel. No hemoptysis. No history of DVT/PE. He denies leg edema. Patient states the pain is 10/10 to the left leg. No exacerbating or alleviating factors. Moderate severity. 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 The right inflow is heavily diseased as well. The patient was evaluated by vascular surgeon physics and astronomy professor and was immediately started on heparin drip. SUBJ 10/29: Remains critically ill, encephalopathy. 4 out of 4 bottles positive for GNR. I will change Rocephin to Zosyn renally dosed to cover for Pseudomonas also. Continue azithromycin. Creatinine still elevated but slightly improved. WBC count slightly increased 17.2 now with 24% bands. Source of GNR sepsis could be either UTI or pneumonia. Will consult ID as well. Remains on IV heparin for acute left limb ischemia 10/30: platelets falling >50% again today. Cr still rising, but could be ATN/ contrast nephropathy. blood cultures growing e. coli by PCR, full speciation to follow. urine culture pending. discussed case with Dr. Lopez, will stop heparin , start argatroban and send HIT/CHARLEEN. denies complaints for me, but does have objective tenderness on palpation, RUQ. 10/31: Emergently intubated today a.m. by Dr. Puckett for worsening mental status, encephalopathy and worsening respiratory failure. Prior to intubation Dr. Puckett ' exam revealed right upper quadrant tenderness. Ultrasound of the gallbladder yesterday showed gallstones. Overnight Argatroban was supratherapeutic and was held, platelet count also dropped to 30,000, HIT screen is pending. Postintubation bilateral pupils are reactive but unequal. Will repeat CT of the head, CT abdomen pelvis. BUN 49/Creat 2.7, leukocytosis persisting 11/01: no improvements. ct abd/pelvis with evidence of possible choledocholithiasis. perc doug tube planned for this AM. on esmolol infusion for afib RVR. fio2 increased to 70%. 11/02: Sodium bicarbonate infusion continued per nephrology in the setting of rhabdomyolysis serial creatinine kinase pending. Cholecystostomy drain placement 100 cc overnight. Continued thrombocytopenia, CBC, serotonin release assay pending. Plan for reinitiation of heparin awaiting GI consultation for possible invasive procedures prior to restarting heparin. Patient sinus rhythm with occasional PAC's. 11/03: No acute events overnight. Sodium bicarbonate infusion discontinued this a.m. had any improved this a.m.. Chest x-ray showed worsening consolidation, FiO2 requirements were increased to 65% during the night. CPAP trials on hold currently. Biliary drainage from cholecystostomy tube revealing gram-negative rods. The patient continues on antibiotics. Bilateral dorsalis pedis pulses monophasic signals by Doppler. Heparin infusion reinitiated. 11/04: Sodium bicarbonate infusion discontinued at 7 AM yesterday. Chest x-ray worsening consolidation versus pleural effusions. FiO2 slightly decreased to 60 %, ABG improving. Pending quantification via ultrasound of pleural fluid in am. Lasix 40mg x1 additional dose provided today . PPN discontinued discussed with Dr. Colon tube feeds initiated at [facility]. Dietary consult ordered. 11/05: Afebrile. Patient tolerating tube feeds advanced to goal rate of 55 cc/ hr. chest x-ray with slight improvement FiO2 decreased to 55% ABG pending. Initiation of CPAP trial to be attempted today. 11/06: Late entry note. Patient seen at 628am. Patient was started on CPAP and continues on CPAP greater than 10 hours. Patient following commands, currently on Precedex infusion. 11/07: Patient remained on CPAP trials for approximately 12 hours yesterday and discontinued because of agitation. CPAP trials reinitiated this a.m. Patient complaint of sore throat Lortab ordered. Patient continues on Precedex for ventilator weaning process. Chest x-ray still shows pulmonary edema, additional dose Lasix 401 dose given this a.m.. When infusion continued, monophasic Doppler signals bilateral dorsalis pedal pulses noted. 11/08: Afebrile . Patient successfully extubated yesterday. Remains on O2 at 4 L nasal cannula O2 saturation 94-95%. Patient continues on heparin infusion, she was noted to have 9 BMs last evening plan for serial H&H's concern for possible stool with occult blood. Repeat stool for occult blood. Plan for possible bedside thoracentesis ,if respiratory requirements increase, currently on O2 4 L via nasal cannula in no apparent distress. 11/11 Late entry, notified of re-consult at 17:[address] Johnson, saw patient and immediately placed L IJ CVL because patient had ripped out an IV and had insufficient peripheral IV access given clinical condition. RN states patient had Hgb 7.5 this morning. Trend was unusual with Hb 8.3--> 12.5 (without transfusion)-->7.5 and lab recommended repeat. Repeat was drawn and was 4.2. Meanwhile, while awaiting re-draw patient became hypotensive, MAP down in the 40s, and was given albumin 25 gram IV. Now he has received 1 unit PRBC and BP improved to 120s/60s. Getting 2 additional units of PRBC stat. Nurse states heparin has been off since 12:30. Sending stat coags/fibrinogen. Patient denies nausea or vomiting. He has some right-sided abdominal pain. There is dark brown drainage from cholecystostomy tube. He has not had a bowel movement in 48 hours. No obvious evidence of GI bleeding. CT abdomen and pelvis has been ordered as "urgent", now giving additional PRBC and then will obtain stat. Gastroenterology has been following and I have notified them of the anemia, though this does not appear to be GI source at this time. 11/12 CT last night showed large retroperitoneal hematoma. Transfused total of 3 units PRBC yest evening. Hgb now 8.3. Coags/fibrinogen in acceptable range this morning, heparin drip off. Patient states much less abdominal pain today. He is alert and oriented now. Coughing, O2 requirement up to 6 L NC, afebrile. 11/13 Had some hemoptysis yesterday. CT with bilateral pleural effusions/ LLL atelectasis vs infiltrate. Now on 8 L SM, tachypneic with more labored breathing today. Edematous, will diurese. He is alert and capacitated currently and agrees to L pleural drainage. Transfused 1 unit PRBC yesterday for Hgb 7.4. He still has some Right sided abdominal pain 11/14: Resting in bed on simple facemask. Hemoglobin 6.9 this morning. Patient denies any worsening shortness of breath or chest pain. 1 unit PRBCs being transfused. Left-sided pigtail catheter placed 11/13 drain 650 cc Subjective: 11/15 Remains on simple mask, breathing a little labored. L pigtail catheter output is serous, 270 last 24 hours. Planned to tap R pleural effusion but when performed u/s the fluid had decreased significantly and did not appear amenable to drainage; continue diuresis. Labs are pending, nurse is about to draw them. Afebrile Objective Vital Signs Date Time Temp Pulse Resp B/P (MAP) Pulse Ox O2 Delivery O2 Flow Rate FiO2 11/15/17 07:54 96 Simple Mask 8.00 11/15/17 06:00 69 11/15/17 04:00 98.4 16 150/77 (101) Intake and Output 11/15/17 11/15/17 11/16/17 08:00 16:00 00:00 Intake Total 400 ml Output Total 1800 ml Balance -1400 ml Result Diagram: 11/14/17 0500 11/14/17 0500 Imaging Current Medications Medications (Trade) Dose Ordered Sig/Olesya Route Start Time Stop Time Status Last Admin (NS Flush) 2 ml UNSCH PRN IV FLUSH 10/28/17 22:15 (NS Flush) 2 ml BID IV FLUSH 10/29/17 09:00 11/07/17 19:41 (Tylenol) 650 mg Q6H PRN PO 10/28/17 22:15 (Dilaudid Pf Inj) 1 mg Q4H PRN IV 10/28/17 22:30 11/07/17 05:15 (Zofran Inj) 4 mg Q6H PRN IV PUSH 10/28/17 22:15 (Restoril) 15 mg HS PRN PO 10/28/17 22:15 Future Hold (Duoneb Neb) 1 ampule Q2HR NEB PRN INH 10/28/17 22:15 11/08/17 08:15 ([facility]) 1 [id number] XX 10/28/17 22:15 10/28/17 22:15 (Chlorhexidine 2% Cloth) Taper DAILY@04 TOP 10/29/17 04:00 10/25/18 03:59 11/08/17 04:00 (Chlorhexidine 2% Cloth) 3 pack UNSCH PRN TOP 10/28/17 22:15 (Elvira-Colace) 1 tab BID PO 10/29/17 09:00 11/07/17 08:21 (Milk Of Magnesia Liq) 30 ml Q12H PRN PO 10/28/17 22:15 (Senokot) 17.2 mg Q12H PRN PO 10/28/17 22:15 (Dulcolax Supp) 10 mg DAILY PRN RECTAL 10/28/17 22:15 (Lactulose Liq) 30 ml DAILY PRN PO 10/28/17 22:15 (SoluMEDROL INJ) 40 mg Q6HR IV PUSH 10/29/17 00:00 11/08/17 05:11 (Cardizem Cd) 240 mg DAILY PO 10/29/17 09:00 Future Hold 10/30/17 09:02 (Aspirin Chew) 81 mg DAILY CHEW 10/29/17 11:45 Future hold 11/07/17 08:21 (Brethine Inj) 1 mg UNSCH PRN SQ 10/31/17 06:15 (Peridex 0.12% Liq) 15 ml BID@08,20 MT 10/31/17 08:00 11/07/17 08:21 (Apresoline Inj) 20 mg Q4H PRN IV PUSH 11/02/17 14:00 (Catapres) 0.1 mg Q6H PRN PO 11/02/17 23:45 11/04/17 02:35 Heparin Sodium/ Dextrose 250 ml @ 12 mls/hr TITRATE PRN IV 11/03/17 07:00 11/07/17 23:52 (Apresoline) 25 mg Q8HR PO 11/03/17 14:00 11/08/17 05:11 (Lasix Inj) 40 mg DAILY IV PUSH 11/03/17 13:00 11/07/17 08:21 (Trandate) 100 mg Q12HR PO 11/04/17 21:00 11/07/17 19:41 (Mucomyst 20% Neb) 2 ml Q6HR NEB NEB 11/05/17 10:00 11/08/17 08:15 Ampicillin Sodium/ Sulbactam Sodium 3 gm/Sodium Chloride 100 ml @ 200 mls/hr Q6H IV 11/05/17 20:00 11/08/17 01:24 (Pepcid Inj) 20 mg Q12HR IV PUSH 11/06/17 21:00 11/07/17 19:41 ([place] 7.5-325 Mg) 1 tab Q6H PRN PO 11/07/17 08:00 11/07/17 09:06 Last Impressions Chest X-Ray 11/07/17 0600 Signed Impressions: CONCLUSION: No appreciable change. Percutaneous Cholangiogram 11/01/17 Signed Impressions: CONCLUSION: 1. Uncomplicated percutaneous cholecystostomy as above. Abdomen/Pelvis CT 11/01/17 Signed Impressions: CONCLUSION: 1. Gallstones. There do appear to be areas of increased density within the com mon bile duct concerning for choledocholithiasis. 2. 4 mm nonobstructing left renal stone. 3. Sigmoid colon diverticula. 4. Bibasilar areas of consolidation or atelectasis being worse on the left wit h mild bilateral pleural effusions. Renal Ultrasound 10/31/17 Signed Impressions: CONCLUSION: 1. No hydronephrosis. 2. Increased cortical echogenicity consistent with medical renal disease. Head Magnetic Resonance Angiography 10/31/17 Signed Impressions: CONCLUSION: 1. Unremarkable MRA of the brain. Head CT 10/31/17 Signed Impressions: CONCLUSION: 1. Negative CT Head non contrast. 2. No evidence of acute infarct, hemorrhage, mass or edema. Brain MRI 10/31/17 Signed Impressions: CONCLUSION: 1. Senescent changes with minimal periventricular ischemic white matter demyel ination. 2. No acute abnormality. Specifically, no acute infarction, mass or hemorrhage . Gall Bladder Ultrasound 10/30/17 Signed Impressions: CONCLUSION: 1. Fatty infiltration of the liver. 2. Multiple stones in the gallbladder. No biliary tract obstruction. Extremity Arterial Study 10/28/17 Signed Impressions: CONCLUSION: 1. Abnormal ABIs, left greater than right. The left DAVID is significantly dimin ished at 0.14. Aorta w/Runoff CTA 10/28/17 Signed Impressions: Service Date/Time: Saturday, October 28, 2017 21:50 - CONCLUSION: 1. Acute occlusion of the left inflow with concern for short segment occlusion involving the distal right inflow. This raises concern for an embolic event. 2. Right lower extremity shows scattered disease throughout the common femoral artery, SFA and [id number] popliteal artery with three-vessel runoff to the foot. 3. Left lower extremity with reconstitution of the common femoral artery with diseased out flow and two vessel runoff to the foot as detailed above. 4. 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 5. Hepatic steatosis. 6. Cholelithiasis. Juanjose Mckeon Jr., MD Last Impressions Chest X-Ray 11/03/17 0600 Signed Impressions: CONCLUSION: Worsening parenchymal consolidation and small effusions at each lung base. Percutaneous Cholangiogram 11/01/17 Signed Impressions: CONCLUSION: 1. Uncomplicated percutaneous cholecystostomy as above. Abdomen/Pelvis CT 11/01/17 Signed Impressions: CONCLUSION: 1. Gallstones. There do appear to be areas of increased density within the com mon bile duct concerning for choledocholithiasis. 2. 4 mm nonobstructing left renal stone. 3. Sigmoid colon diverticula. 4. Bibasilar areas of consolidation or atelectasis being worse on the left wit h mild bilateral pleural effusions. Renal Ultrasound 10/31/17 Signed Impressions: CONCLUSION: 1. No hydronephrosis. 2. Increased cortical echogenicity consistent with medical renal disease. Head Magnetic Resonance Angiography 10/31/17 Signed Impressions: CONCLUSION: 1. Unremarkable MRA of the brain. Head CT 10/31/17 Signed Impressions: CONCLUSION: 1. Negative CT Head non contrast. 2. No evidence of acute infarct, hemorrhage, mass or edema. Brain MRI 10/31/17 Signed Impressions: CONCLUSION: 1. Senescent changes with minimal periventricular ischemic white matter demyel ination. 2. No acute abnormality. Specifically, no acute infarction, mass or hemorrhage . Gall Bladder Ultrasound 10/30/17 Signed Impressions: CONCLUSION: 1. Fatty infiltration of the liver. 2. Multiple stones in the gallbladder. No biliary tract obstruction. Extremity Arterial Study 10/28/17 Signed Impressions: CONCLUSION: 1. Abnormal ABIs, left greater than right. The left DAVID is significantly dimin ished at 0.14. Aorta w/Runoff CTA 10/28/17 Signed Impressions: Service Date/Time: Saturday, October 28, 2017 21:50 - CONCLUSION: 1. Acute occlusion of the left inflow with concern for short segment occlusion involving the distal right inflow. This raises concern for an embolic event. 2. Right lower extremity shows scattered disease throughout the common femoral artery, SFA and [id number] popliteal artery with three-vessel runoff to the foot. 3. Left lower extremity with reconstitution of the common femoral artery with diseased out flow and two vessel runoff to the foot as detailed above. 4. 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 5. Hepatic steatosis. 6. Cholelithiasis. Juanjose Mckeon Jr., MD Last Impressions Percutaneous Cholangiogram 11/01/17 Signed Impressions: CONCLUSION: 1. Uncomplicated percutaneous cholecystostomy as above. Abdomen/Pelvis CT 11/01/17 Signed Impressions: CONCLUSION: 1. Gallstones. There do appear to be areas of increased density within the com mon bile duct concerning for choledocholithiasis. 2. 4 mm nonobstructing left renal stone. 3. Sigmoid colon diverticula. 4. Bibasilar areas of consolidation or atelectasis being worse on the left wit h mild bilateral pleural effusions. Renal Ultrasound 10/31/17 Signed Impressions: CONCLUSION: 1. No hydronephrosis. 2. Increased cortical echogenicity consistent with medical renal disease. Head Magnetic Resonance Angiography 10/31/17 Signed Impressions: CONCLUSION: 1. Unremarkable MRA of the brain. Head CT 10/31/17 Signed Impressions: CONCLUSION: 1. Negative CT Head non contrast. 2. No evidence of acute infarct, hemorrhage, mass or edema. Chest X-Ray 10/31/17 Signed Impressions: CONCLUSION: Satisfactory position of endotracheal and nasogastric tubes. Increasing airspace disease and bilateral effusions. Brain MRI 10/31/17 Signed Impressions: CONCLUSION: 1. Senescent changes with minimal periventricular ischemic white matter demyel ination. 2. No acute abnormality. Specifically, no acute infarction, mass or hemorrhage . Gall Bladder Ultrasound 10/30/17 Signed Impressions: CONCLUSION: 1. Fatty infiltration of the liver. 2. Multiple stones in the gallbladder. No biliary tract obstruction. Extremity Arterial Study 10/28/17 Signed Impressions: CONCLUSION: 1. Abnormal ABIs, left greater than right. The left DAVID is significantly dimin ished at 0.14. Aorta w/Runoff CTA 10/28/17 Signed Impressions: Service Date/Time: Saturday, October 28, 2017 21:50 - CONCLUSION: 1. Acute occlusion of the left inflow with concern for short segment occlusion involving the distal right inflow. This raises concern for an embolic event. 2. Right lower extremity shows scattered disease throughout the common femoral artery, SFA and [id number] popliteal artery with three-vessel runoff to the foot. 3. Left lower extremity with reconstitution of the common femoral artery with diseased out flow and two vessel runoff to the foot as detailed above. 4. 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 5. Hepatic steatosis. 6. Cholelithiasis. Juanjose Mckeon Jr., MD Last 24 hours Impressions Chest X-Ray 10/28/172010 Signed Impressions: Service Date/Time: Saturday, October 28, 2017 20:20 - CONCLUSION: Left lower lobe infiltrate. Mild cardiomegaly. Juanjose Mckeon Jr., MD Objective Remarks GENERAL: This is a well-developed undernourished middle-aged male, sitting up in bed, alert and conversant now. SKIN: Warm and dry. HEAD: Normocephalic. ENT: + scleral icterus. No injection or drainage. Pupils are now equal at 3mm, reactive. On simple mask. NECK: Supple, trachea midline. No JVD. CARDIOVASCULAR: Regular, rate in the 70s. No murmurs rubs or gallops. RESPIRATORY: Mildly dyspneic appearing with no accessory muscle use.. Coarse breath sounds bilaterally, diminished bibasilar. L chest tube to -40 cm suction with no air leak, serous drainage. GASTROINTESTINAL: Abdomen soft, mildly distended, tender in right abdomen but no rebound or guarding, less tender compared with yesterday., bowel sounds hypoactive. Cholecystostomy tube is in place draining dark brown fluid. No flank hematoma. : Peña in place with dark yellow urine output MUSCULOSKELETAL: No cyanosis, 1+ bipedal edema. Bilateral DP with Doppler pulses. Discoloration of left fifth toe. Bruising of right distal forearm and ecchymosis finger tips of right hand with 1+ right hand edema, palpable radial pulse and good macadam raker. NEURO EXAM: Eyes open, makes eye contact. Oriented to person, place, year. Moves all extremities with no focal deficit A/P Assessment and Plan ASSESSMENT/PLAN: NEURO: Acute metabolic encephalopathy, improved -Lortab as needed for pain -10/31 CT of the head- negative -10/31MRIminimal periventricular ischemic white matter change no acute abnormality RESP: COPD exacerbation, resolved Left lower lobe pneumonia, resolved ARDS, resolved Respiratory distress Bilateral pleural effusions. -Emergently intubated and placed on mechanical ventilation 10/31/2017. Extubated 11/07/17. -L pigtail chest tube placed with initially 600 mL of serosanginous output. Respiratory status improved. pleural fluid culture negative,pathology pending. Place to water seal. f/u CXR in am. -U/s R pleural effusion on 11/15 - small not amenable to drainage. Continue Symbicort 160/4.52 puffs inhaled every 12 hours Incentive spirometry every hour awake, Acapella. Wean Solumedrol to 40 mg IV q12. Guaifenesin [address] twice daily Dr. Johnson following CVS: Hemorrhagic shock, resolved. Secondary to R retroperitoneal hematoma Lactic acidemia Acute on chronic left limb ischemia, improved Paroxysmal atrial fibrillation HTN -CTA showed severe aorto-iliac occlusive disease with left iliac thrombosis. Dr. Lopez evaluated, may need ax-fem bypass at some point but not during this hospitalization. -No longer a candidate for anticoagulation, ASA/Plavix recommended when patient stabilized. Now off antiplatelets both due to large RP bleed and now planned ERCP and GI requests antiplatelets on hold. -Significant calcifications and peripheral vascular disease -2D echo: EF 50%, no significant valvular lesions. left sided pleural effusion -HIT screen negative. CHARLEEN -negative -Continue Cardizem 240 mg p.o. daily GI Acute hepatic dysfunction Hyperbilirubinemia Transaminitis Acute Choledocholithiasis R retroperitoneal hematoma -Trend LFTs, - gallbladder ultrasound showed multiple gallstones -Repeat CT abdomen/pelvis 11/01: c/w choledocholithiasis - GI consult. 11/02-Dr. [place], - Perc cholecystostomy tube placed 11/01 by IR. -Eventual cholecystectomy when stabilized. Dr. Martins has seen. -GI planning tentatively for ERCP on Wednesday 10/18, must be off antiplatelet therapy x5 days per GI. Discussed 11/13. -Acute hemorrhagic shock on 11/11 while on heparin drip, transfusing as needed. CT with large R retroperitoneal hematoma. Manage medically, IR drain if e/o infection. Gen Surgery following. FEN/RNEAL Acute kidney injury Acute metabolic acidosis Initial DEBORA on admission improve Lasix 40 mg IV q12. Nephrology has signed off. ID E COLI bacteremia/severe sepsis, resolved Enterococcus in the urine: possible colonization vs. UTI. Acute Choledocholithiasis/ Cholangitis Biliary fluid gram-negative rods Cholecystostomy placed 11/01. Continue antibiotics per ID: Unasyn HEME: Acute blood loss anemia overlying anemia of chronic disease acute thrombocytopenia: Initially consumptive secondary to sepsis earlier during admission then consumptive secondary to acute blood loss. Now uptrending. - HIT negative. CHARLEEN negative 10/30. Heparin on hold since 12: 30 11/11. Monitor coags, transfuse blood products as indicated. 3 units PRBC 11/11. 1 unit 11/12. 1 unit PRBCs ordered for hemoglobin 6.9 on 11/14. DVT GI prophylaxis -Vickey's and SCDs -Heparin infusion on hold due to bleeding. ACCESS: . Placed emergent left IJ central venous line 11/11 #5 Patient states he agrees to reintubation if needed. In the setting of pulseless arrest he would not want CPR, shocks, intubation, ACLS drugs. CODE STATUS is alternate code intubation only. Patient's sister states that he has designated her as healthcare surrogate. He has advanced directives. Palliative care following. Discussed with case management. He has been referred to [facility] and tentatively transfer when stabilized after ERCP. Level 2 f/u. Niru Puckett MD Nov 15, 2017 12:26
--- NOTE | 2017-11-15 14:40 | HHI.PR ---
cc: Richi Martins MD Subjective Subjective Notes Resting in bed Objective Vitals/I&O Vital Signs Date Time Temp Pulse Resp B/P (MAP) Pulse Ox O2 Delivery O2 Flow Rate FiO2 11/15/17 07:54 96 Simple Mask 8.00 11/15/17 06:00 69 11/15/17 04:00 98.4 16 150/77 (101) Labs Date/Time Source Procedure Growth Status 10/30/17 20:38 Blood Peripheral Aerobic Blood Culture - Final NO GROWTH IN 5 DAYS Complete 10/30/17 20:38 Blood Peripheral Anaerobic Blood Culture - Final NO GROWTH IN 5 DAYS Complete 11/13/17 12:00 Fluid Pleural Fluid Gram Stain - Final Resulted 11/13/17 12:00 Fluid Pleural Fluid Body Fluid Culture - Preliminary NO GROWTH IN 48 HOURS. Resulted 11/04/17 05:08 Stool Stool Stool Occult Blood (NUBIA) - Final HEMOCCULT POSITIVE Complete 10/31/17 10:40 Sputum Endotracheal Gram Stain - Final Complete 10/31/17 10:40 Sputum Endotracheal Sputum Culture - Final HEAVY GROWTH NORMAL RESPIRATORY KAREEM Complete 10/29/17 00:00 Urine Catheterized Urine Urine Culture - Final Enterococcus Faecalis Complete Cardiovascular: Regular Lungs: Clear Abdomen: Non-distended, Non-tender Narrative Exam LEFT chest tube in place Moderate generalized edema A/P Assessment and Plan 67 year old male with multiple medical problems on heparin drip with retroperitoneal hematoma -Diet as tolerated -S/p transfusion yesterday--- await labs for today -Continue to hold anticoagulation -Continue abdominal exams; exam continues to be benign -Continue non operative treatment Attending Statement The exam, history, and the medical decision-making described in the above note were completed with the assistance of the mid-level provider. I reviewed and agree with the findings presented. I attest that I had a [id number] encounter with the patient on the same day, and personally performed and documented my assessment and findings in the medical record. retroperitoneal hematoma stable no abdominal pain exam non-surgical, no peritonitis will follow Silvana Whalen/Talent Specialist [employer]BER Nov 15, 2017 14:39 Richi Martins MD Nov 19, 2017 15:11
--- NOTE | 2017-11-15 14:54 | HHI.HCPN ---
Reason for visit a. To assist with evaluation and management of symptoms including: Shortness of breath, pain, debility. b. To assist medical decision maker(s) with: better understanding of current medical conditions; weighing benefits/burdens of medical treatment options; making medical treatment decisions. . Subjective/Interval History Follow-up palliative care visit for clarification of goals of care, emotional support. Patient seen in medical ICU, in bed in moderate distress secondary to increased work of breathing. Remains on 8 L via simple mask, plan for right chest tube for pleural effusion. Left pigtail chest tube patent. Patient status post 1 packed red blood cell transfusion yesterday for hemoglobin of 6.9 , pending repeat labs. Remains afebrile, hypertensive with SBP in the 140s- 150s. Patient endorsing shortness of breath and generalized weakness. Sister Jennifer at bedside. Goals of treatment remain unchanged, ongoing active listening and emotional support provided. Discussed with sister plan for chest tube. Reviewed that ERCP is scheduled for Saturday; however, subject to clinical condition. Patient and sister receptive to palliative care follow-ups. . Advance Directives Living Will: Copy in medical record Health Care Surrogate: Copy in medical record Advance Directive Specifics Date completed: 10/27/2012. . Health Care Surrogate(s): Patient electing sister Jennifer Adal as healthcare surrogate decision maker. No alternate surrogates. . Documented care wishes: Living will with standard verbiage as it pertains to terminal condition, end- stage condition or persistent vegetative state. . Significant change in goals: Goals of treatment remain unchanged. . Objective Vital Signs Date Time Temp Pulse Resp B/P (MAP) Pulse Ox O2 Delivery O2 Flow Rate FiO2 11/15/17 07:54 96 Simple Mask 8.00 11/15/17 06:00 69 11/15/17 04:00 98.4 67 16 150/77 (101) 98 11/15/17 04:00 67 11/15/17 02:00 80 11/15/17 00:00 75 11/15/17 00:00 98.9 75 13 129/71 (90) 94 11/14/17 22:00 77 11/14/17 21:01 95 Simple Mask 8.00 11/14/17 20:00 98.7 79 18 148/74 (98) 94 11/14/17 20:00 79 11/14/17 18:00 84 11/14/17 17:00 83 11/14/17 16:00 98.3 75 19 142/81 (101) 97 11/14/17 16:00 75 11/14/17 15:00 73 Intake & Output 11/15/17 11/15/17 07:00 19:00 Intake Total 350 ml 50 ml Output Total 1800 ml Balance -1450 ml 50 ml Intake Oral 350 ml IV Total 50 ml Output Urine Total 1550 ml Chest Tube Drainage Total 120 ml Drainage Total 130 ml # Bowel Movements 0 Physical Exam CONSTITUTIONAL/GENERAL: This is an adequately nourished patient in moderate distress secondary to increased work of breathing. Ill looking. TUBES/LINES/DRAINS: O2 face mask, PIV's, left IJ central line. Left-sided pigtail chest tube, biliary drain, Peña catheter, bilateral SCDs. SKIN: Dusky looking. No jaundice, rashes, or lesions. Large areas of ecchymoses on bilateral upper extremities, right forearm and hand more than left. Skin temperature appropriate. Not diaphoretic. HEAD: Atraumatic. Normocephalic. EYES: Pupils equal and round and reactive. Extraocular motions intact. No scleral icterus. No injection or drainage. ENT: Hearing grossly normal. Nose without bleeding or purulent drainage. Moist oral mucosa. NECK: Trachea midline. Supple, nontender. CARDIOVASCULAR: Regular rate and rhythm. Warm bilateral extremities, no cyanosis noted. RESPIRATORY/CHEST: Symmetric, increased work of breathing well on O2. Coarse breath sounds. GASTROINTESTINAL: Abdomen round, obese, nontender. No guarding. Bowel sounds present. GENITOURINARY: Without palpable bladder distension. Peña catheter in place. MUSCULOSKELETAL: Extremities without clubbing, cyanosis. Edema to bilateral lower extremities. NEUROLOGICAL: Awake and alert x self, place and situation. Follows commands. Verbal. PSYCHIATRIC: Flat affect. . Diagnostic Tests Laboratory Laboratory Tests Test 11/12/17 22:30 11/13/17 03:50 11/13/17 12:00 11/13/17 14:32 Hemoglobin 8.4 GM/DL (13.0-17.0) 7.7 GM/DL (13.0-17.0) 7.3 GM/DL (13.0-17.0) Hematocrit 24.5 % (39.0-51.0) 22.4 % (39.0-51.0) 21.5 % (39.0-51.0) White Blood Count 14.8 TH/MM3 (4.0-11.0) Red Blood Count 2.49 MIL/MM3 (4.50-5.90) Mean Corpuscular Volume 89.8 FL (80.0-100.0) Mean Corpuscular Hemoglobin 30.8 PG (27.0-34.0) Mean Corpuscular Hemoglobin Concent 34.3 % (32.0-36.0) Red Cell Distribution Width 14.9 % (11.6-17.2) Platelet Count 69 TH/MM3 (150-450) Mean Platelet Volume 11.2 FL (7.0-11.0) Neutrophils (%) (Auto) 92.2 % (16.0-70.0) Lymphocytes (%) (Auto) 3.8 % (9.0-44.0) Monocytes (%) (Auto) 3.9 % (0.0-8.0) Eosinophils (%) (Auto) 0.0 % (0.0-4.0) Basophils (%) (Auto) 0.1 % (0.0-2.0) Neutrophils # (Auto) 13.7 TH/MM3 (1.8-7.7) Lymphocytes # (Auto) 0.6 TH/MM3 (1.0-4.8) Monocytes # (Auto) 0.6 TH/MM3 (0-0.9) Eosinophils # (Auto) 0.0 TH/MM3 (0-0.4) Basophils # (Auto) 0.0 TH/MM3 (0-0.2) CBC Comment AUTO DIFF Differential Comment AUTO DIFF CONFIRMED Platelet Estimate LOW (NORMAL) Platelet Morphology Comment NORMAL (NORMAL) Blood Urea Nitrogen 60 MG/DL (7-18) Creatinine 1.56 MG/DL (0.60-1.30) Random Glucose 97 MG/DL (74-106) Total Protein 4.5 GM/DL (6.4-8.2) Albumin 2.5 GM/DL (3.4-5.0) Calcium Level 7.0 MG/DL (8.5-10.1) Alkaline Phosphatase 39 U/L (45-117) Aspartate Amino Transf (AST/SGOT) 58 U/L (15-37) Alanine Aminotransferase (ALT/SGPT) 79 U/L (12-78) Total Bilirubin 5.2 MG/DL (0.2-1.0) Sodium Level 147 MEQ/L (136-145) Potassium Level 3.8 MEQ/L (3.5-5.1) Chloride Level 111 MEQ/L (98-107) Carbon Dioxide Level 26.4 MEQ/L (21.0-32.0) Anion Gap 10 MEQ/L (5-15) Estimat Glomerular Filtration Rate 44 ML/MIN (>89) Protein Corrected Calcium 8.4 MG/DL (8.5-10.1) Pleural Fluid WBC 10 /MM3 (0-10) Pleural Fluid RBC 5940 /MM3 (0-0) Pleural Fluid Neutrophils 12 % Pleural Fluid Lymphocytes 68 % Pleural Fluid Histiocytes 8 % Pleural Fluid Mesothelial Cells 12 % Pleural Fluid Comment Pleural Fluid Total Protein 0.8 GM/DL Pleural Fluid LDH 96 U/L Pleural Fluid Glucose 111 MG/DL Test 11/14/17 05:00 White Blood Count 10.9 TH/MM3 (4.0-11.0) Red Blood Count 2.17 MIL/MM3 (4.50-5.90) Hemoglobin 6.9 GM/DL (13.0-17.0) Hematocrit 19.9 % (39.0-51.0) Mean Corpuscular Volume 91.7 FL (80.0-100.0) Mean Corpuscular Hemoglobin 31.9 PG (27.0-34.0) Mean Corpuscular Hemoglobin Concent 34.8 % (32.0-36.0) Red Cell Distribution Width 15.4 % (11.6-17.2) Platelet Count 67 TH/MM3 (150-450) Mean Platelet Volume 10.7 FL (7.0-11.0) Neutrophils (%) (Auto) 95.5 % (16.0-70.0) Lymphocytes (%) (Auto) 1.7 % (9.0-44.0) Monocytes (%) (Auto) 2.3 % (0.0-8.0) Eosinophils (%) (Auto) 0.0 % (0.0-4.0) Basophils (%) (Auto) 0.5 % (0.0-2.0) Neutrophils # (Auto) 10.4 TH/MM3 (1.8-7.7) Lymphocytes # (Auto) 0.2 TH/MM3 (1.0-4.8) Monocytes # (Auto) 0.3 TH/MM3 (0-0.9) Eosinophils # (Auto) 0.0 TH/MM3 (0-0.4) Basophils # (Auto) 0.1 TH/MM3 (0-0.2) CBC Comment AUTO DIFF Differential Comment AUTO DIFF CONFIRMED Platelet Estimate LOW (NORMAL) Platelet Morphology Comment NORMAL (NORMAL) Blood Urea Nitrogen 49 MG/DL (7-18) Creatinine 1.23 MG/DL (0.60-1.30) Random Glucose 116 MG/DL (74-106) Total Protein 4.7 GM/DL (6.4-8.2) Calcium Level 7.4 MG/DL (8.5-10.1) Sodium Level 148 MEQ/L (136-145) Potassium Level 3.8 MEQ/L (3.5-5.1) Chloride Level 112 MEQ/L (98-107) Carbon Dioxide Level 27.1 MEQ/L (21.0-32.0) Anion Gap 9 MEQ/L (5-15) Estimat Glomerular Filtration Rate 59 ML/MIN (>89) Protein Corrected Calcium 8.8 MG/DL (8.5-10.1) Result Diagram: 11/14/17 0500 11/14/17 0500 Microbiology Microbiology Date/Time Source Procedure Growth Status 11/13/17 12:00 Fluid Pleural Fluid Gram Stain - Final Resulted 11/13/17 12:00 Fluid Pleural Fluid Body Fluid Culture - Preliminary NO GROWTH IN 48 HOURS. Resulted Procedures * 10/31/17: Endotracheal intubation * 11/01/17: Biliary drain placement * 11/07/17: Extubation * 11/13/17: Left-sided pigtail chest tube . Assessment and Plan Disease Oriented Problem List: (1) Sepsis (2) Pneumonia (3) Choledocholithiasis (4) Retroperitoneal bleed (5) COPD (chronic obstructive pulmonary disease) (6) Acute blood loss anemia (7) Acute renal failure (8) Peripheral vascular disease (9) CKD (chronic kidney disease) stage 4, GFR 15-29 ml/min (10) Ischemia of left lower extremity (11) Physical deconditioning Symptom Scale: (1) Dyspnea 0-10 Scale: Unable to quantify (2) Pain 0-10 Scale: Unable to quantify (3) Debility 0-10 Scale: Unable to quantify Pertinent Non-Medical Issues Psychosocial: Patient originally from [facility]. Moved to [place] 6 years ago. He is , has 3 biological children. 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 No service. Spiritual: No hindu affiliation. Legal: Advance directives completed. Ethical issues impacting care: No ethical issues identified. . Important Contacts Sister/healthcare surrogate: Jennifer Galeas . Prognosis Mr. Bates is a 67-year-old male with a medical history significant for COPD, hypertension, CAD and peripheral vascular disease. Patient presented to ED via EMS on 10/28/17 for evaluation of shortness of breath and pain to his left leg. He was found with occlusion of left iliac artery, not a surgical candidate secondary to sepsis, pneumonia and respiratory failure. Clinical course complicated by acute on chronic renal failure, choledocholithiasis requiring biliary drain placement, retroperitoneal bleed with development of hemorrhagic shock. Patient remains in critical condition, high risk for further complications, decline and . Overall prognosis is guarded. . Code Status: Alternative Code Plan * CODE STATUS: Alternate code, intubation only. * HEALTHCARE DECISION-MAKING: Patient participating medical decision making, however, intermittent confusion secondary to encephalopathy/acute illness. Advanced directives completed, patient designated his sister Jennifer Galeas as healthcare surrogate decision maker. No alternate surrogate designated. Palliative care recommends shared decision making with patient and sister given intermittent confusion. In addition, patient appears to rely on sister for guidance. * GOALS OF CARE: Patient supported by Sister Jennifer electing continuation of aggressive management short of NO cardiac resuscitation. Sister wishing to allow a few more days for clinical improvement, maximize medical management. Gently shared concerns with sister regarding patient's guarded prognosis and high risk for further complications, progressive decline and . Patient and sister receptive to palliative care follow-up. * SYMPTOMS: = Dyspnea: Multifactorial secondary to COPD, acute illness, physical deconditioning, anemia -retroperitoneal hematoma. Currently on 8L O2 via simple mask. Currently on Solu-Medrol 40 mg every 8 hours. = Pain: Secondary to multiple lines, prolonged hospitalization/Bedrest. Anthony 7.5/325 mg available as needed. = Debility: Secondary to prolonged hospitalization and acute on chronic illness. Likely to continue to worsen. PT following, PT at rehab recommended. * Case discussed with bedside RN. * Ongoing emotional support and active listening provided to patient's sister. Palliative care social media marketing manager Kimber Mckeon following. * Palliative care contact information has been provided to patient and family. * Palliative care will continue to follow up for further clarification of goals of care as patient's clinical course continues to evolve. . Time Spent Total Floor Time (mins): 26 ( Total time to include review medical records, physical exam, goals of care conversation with patient and sister, case discussion with bedside RN.) >50% Counseling/Coord of Care: Yes Attestation To help prompt me to consider important information that might be impacting today's encounter and assessment, information from prior notes written by myself or my colleagues may have been "brought forward" into today's note. My signature on this note, however, is an attestation that I personally performed the exam, history, and/or decision-making noted today, and, unless otherwise indicated, the interactions with patient, family, and staff as well as the review of records all occurred today. I also attest that the listed assessment and stated plan reflect my best clinical judgment today based on the combination of historical information, prior notes, and today's exam/ interactions. When time spent is documented, it refers only to time spent today by the signer, or if indicated, combined time spent today by collaborating physician/nurse practitioner. Nancy Encarnacion Nov 15, 2017 14:54
[2017-11-15 15:47] LABS: AUTOMATED NEUTROPHIL # 11.2 TH/MM3 (1.8-7.7); BASOPHIL % 0.2 % (0.0-2.0); HEMATOCRIT 26.2 % (39.0-51.0); HEMOGLOBIN 8.8 GM/DL (13.0-17.0); LYMPHOCYTE # 0.1 TH/MM3 (1.0-4.8); MEAN CELL VOLUME 91.4 FL (80.0-100.0); MEAN CORPUSCULAR HEMOGLOBIN 30.5 PG (27.0-34.0); MEAN CORPUSCULAR HGB CONC 33.4 % (32.0-36.0); MEAN PLATELET VOLUME 10.7 FL (7.0-11.0); MONO % 1.3 % (0.0-8.0); MONOCYTE # 0.1 TH/MM3 (0-0.9); NEUT % 97.5 % (16.0-70.0); PLATELET COUNT 84 TH/MM3 (150-450); RED BLOOD COUNT 2.87 MIL/MM3 (4.50-5.90); RED CELL DISTRIBUTION WIDTH 17.3 % (11.6-17.2); WHITE BLOOD COUNT 11.5 TH/MM3 (4.0-11.0)
[2017-11-15 16:13] LABS: ALBUMIN 3.6 GM/DL (3.4-5.0); ALKALINE PHOSPHATASE 51 U/L (45-117); ALT (GPT) 90 U/L (12-78); AST (GOT) 43 U/L (15-37); BICARBONATE 28.6 MEQ/L (21.0-32.0); BLOOD UREA NITROGEN 41 MG/DL (7-18); CHLORIDE 108 MEQ/L (98-107); CREATININE 1.03 MG/DL (0.60-1.30); GLOMERULAR FILTRATION RATE 72 ML/MIN (>89); GLUCOSE,RANDOM 126 MG/DL (74-106); SODIUM (NA) 145 MEQ/L (136-145); TOTAL BILIRUBIN ADULT 6.9 MG/DL (0.2-1.0); TOTAL PROTEIN 5.7 GM/DL (6.4-8.2)
--- NOTE | 2017-11-15 17:57 | HHI.PR ---
Subjective Remarks 67 YOWM with COPD,Sepsis, ischemia of leg Developed RF, intubated mild sob cough, occ sp No Fever Left chest cathetor draining Improvement in breathing on Oxymask Objective Vital Signs Vital Signs Date Time Temp Pulse Resp B/P (MAP) Pulse Ox O2 Delivery O2 Flow Rate FiO2 11/15/17 07:54 96 Simple Mask 8.00 11/15/17 06:00 69 11/15/17 04:00 98.4 67 16 150/77 (101) 98 11/15/17 04:00 67 11/15/17 02:00 80 11/15/17 00:00 75 11/15/17 00:00 98.9 75 13 129/71 (90) 94 11/14/17 22:00 77 11/14/17 21:01 95 Simple Mask 8.00 11/14/17 20:00 98.7 79 18 148/74 (98) 94 11/14/17 20:00 79 11/14/17 18:00 84 I/O 11/14/17 11/14/17 11/14/17 11/15/17 11/15/17 11/15/17 07:00 15:00 23:00 07:00 15:00 23:00 Intake Total 410 ml 1595 ml 350 ml 50 ml Output Total 1790 ml 1830 ml 1800 ml Balance -1380 ml -235 ml -1450 ml 50 ml Intake Oral 360 ml 1080 ml 350 ml IV Total 50 ml 100 ml 50 ml Packed Cells 400 ml Blood Product IV Normal Saline Flush 15 ml Output Urine Total 1400 ml 1550 ml 1550 ml Chest Tube Drainage Total 160 ml 150 ml 120 ml Drainage Total 230 ml 130 ml 130 ml # Bowel Movements 0 0 Result Diagram: 11/15/17 1215 11/15/17 1215 Objective Remarks GENERAL: WBWN WM, mild sob SKIN: Warm and dry. HEAD: Normocephalic. EYES: No scleral icterus. No injection or drainage. NECK: Supple, trachea midline. No JVD or lymphadenopathy. CARDIOVASCULAR: Regular rate and rhythm without murmurs, gallops, or rubs. RESPIRATORY: Breath sounds equal bilaterally. No accessory muscle use. GASTROINTESTINAL: Abdomen soft, non-tender, nondistended. MUSCULOSKELETAL: No cyanosis, or edema. Cold left leg BACK: Nontender without obvious deformity. No CVA tenderness. A/P Assessment and Plan IMPRESSION: 1. Sepsis. 2. Chronic obstructive pulmonary disease, mild exacerbation. 3. Left basilar infiltrate. 4. Urinary tract infection 5. Encephalopathy. 6. Cold left leg. 7. Thrombocytopenia. 8. VDRF--extubated 11/07 9. Severe anemia, retroperitoneal bleed PLAN: Cont Abx per ID Monitor renal functions Supplement 02 with Oxymask Encourage PO DW RN at BS Monitor H/H Chest tube to suction. IV Solumedrol. Dennis Johnson MD Nov 15, 2017 17:57
[2017-11-16] VITALS (21 sets, daily range): BP systolic 120–169; BP diastolic 58–89; PULSE 73–98; RESP 19–28; TEMP 98.2–98.5; O2SAT 89–99
[2017-11-16] MEDS: ALBUMIN 25% INJ 50 ML IV SCH ×3 (00:58→18:40)
[2017-11-16] MEDS: methylPREDNISolone SOD SUCC 40 MG/1 ML VIAL IV PUSH SCH ×3 (00:59→23:38)
[2017-11-16] MEDS: CHLORHEXIDINE GLUCONATE 2 % 1 PACK (2 CLOTHS) TOP SCH (02:41)
[2017-11-16 03:47] LABS: BASOPHIL % 0.3 % (0.0-2.0); HEMOGLOBIN 7.6 GM/DL (13.0-17.0); LYMPH % 1.3 % (9.0-44.0); LYMPHOCYTE # 0.1 TH/MM3 (1.0-4.8); MEAN CELL VOLUME 90.3 FL (80.0-100.0); MEAN CORPUSCULAR HEMOGLOBIN 31.4 PG (27.0-34.0); MEAN CORPUSCULAR HGB CONC 34.8 % (32.0-36.0); MEAN PLATELET VOLUME 10.1 FL (7.0-11.0); MONO % 2.3 % (0.0-8.0); MONOCYTE # 0.2 TH/MM3 (0-0.9); NEUT % 96.1 % (16.0-70.0); PLATELET COUNT 78 TH/MM3 (150-450); RED BLOOD COUNT 2.43 MIL/MM3 (4.50-5.90); RED CELL DISTRIBUTION WIDTH 17.5 % (11.6-17.2); WHITE BLOOD COUNT 9.4 TH/MM3 (4.0-11.0)
[2017-11-16 04:17] LABS: ALBUMIN 3.5 GM/DL (3.4-5.0); ALT (GPT) 77 U/L (12-78); AST (GOT) 42 U/L (15-37); BICARBONATE 27.1 MEQ/L (21.0-32.0); BLOOD UREA NITROGEN 38 MG/DL (7-18); CALCIUM 8.1 MG/DL (8.5-10.1); CHLORIDE 110 MEQ/L (98-107); CREATININE 1.03 MG/DL (0.60-1.30); GLOMERULAR FILTRATION RATE 72 ML/MIN (>89); GLUCOSE,RANDOM 112 MG/DL (74-106); MAGNESIUM 2.5 MG/DL (1.5-2.5); SODIUM (NA) 148 MEQ/L (136-145)
[2017-11-16 04:20] LABS: ALKALINE PHOSPHATASE 45 U/L (45-117); TOTAL BILIRUBIN ADULT 5.2 MG/DL (0.2-1.0); TOTAL PROTEIN 5.3 GM/DL (6.4-8.2)
[2017-11-16] MEDS: hydrALAZINE HCL 25 MG TAB PO SCH ×3 (05:03→20:53)
[2017-11-16] MEDS: CHLORHEXIDINE 0.12% (ORAL KIT) 15 ML CUP MT SCH ×2 (08:00→18:46)
[2017-11-16] MEDS: RESP: ALBUTEROL 2.5 MG/IPRATROPIUM 0.5 MG NEB (SCH) NEB ×3 (08:24→19:40)
[2017-11-16] MEDS: BUDESONIDE-FORMOTEROL 160/4.5 MCG INHALER INH SCH ×2 (09:00→20:54)
[2017-11-16] MEDS: NYSTATIN SUSP 500,000 U/5 ML CUP SWISH-SWAL SCH ×4 (10:32→20:53)
[2017-11-16] MEDS: FAMOTIDINE 20 MG TAB PO SCH ×2 (10:32→20:52)
[2017-11-16] MEDS: DILTIAZEM-CD 240 MG CAP ER PO SCH (10:35)
[2017-11-16] MEDS: guaiFENesin E.R. 600 MG TAB PO SCH ×2 (10:36→20:53)
[2017-11-16] MEDS: SODIUM CHLORIDE 0.9% FLUSH 10 ML FLUSH IV FLUSH SCH ×2 (10:36→20:53)
[2017-11-16] MEDS: FUROSEMIDE 40 MG/4 ML VIAL IV PUSH SCH ×2 (10:36→20:52)
--- NOTE | 2017-11-16 12:10 | HHI.CCPN ---
Subjective Remarks/Hospital Course 67-year-old male presents to the emergency department via EMS for evaluation of shortness of breath and pain and numbness to the left leg. Patient believes that he is shortness of breath is related to the pain in his leg. He cannot feel his leg from his groin down. He denies any history of the same. He does report history of COPD. He denies any known fevers or chills. He denies chest pain. Patient received 1 L normal saline bolus via EMS. Patient denies any history of bleeding or blood clots. No recent surgery or travel. No hemoptysis. No history of DVT/PE. He denies leg edema. Patient states the pain is 10/10 to the left leg. No exacerbating or alleviating factors. Moderate severity. 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 The right inflow is heavily diseased as well. The patient was evaluated by vascular surgeon data control assistant and was immediately started on heparin drip. SUBJ 10/29: Remains critically ill, encephalopathy. 4 out of 4 bottles positive for GNR. I will change Rocephin to Zosyn renally dosed to cover for Pseudomonas also. Continue azithromycin. Creatinine still elevated but slightly improved. WBC count slightly increased 17.2 now with 24% bands. Source of GNR sepsis could be either UTI or pneumonia. Will consult ID as well. Remains on IV heparin for acute left limb ischemia 10/30: platelets falling >50% again today. Cr still rising, but could be ATN/ contrast nephropathy. blood cultures growing e. coli by PCR, full speciation to follow. urine culture pending. discussed case with Dr. Lopez, will stop heparin , start argatroban and send HIT/CHARLEEN. denies complaints for me, but does have objective tenderness on palpation, RUQ. 10/31: Emergently intubated today a.m. by Dr. Puckett for worsening mental status, encephalopathy and worsening respiratory failure. Prior to intubation Dr. Puckett ' exam revealed right upper quadrant tenderness. Ultrasound of the gallbladder yesterday showed gallstones. Overnight Argatroban was supratherapeutic and was held, platelet count also dropped to 30,000, HIT screen is pending. Postintubation bilateral pupils are reactive but unequal. Will repeat CT of the head, CT abdomen pelvis. BUN 49/Creat 2.7, leukocytosis persisting 11/01: no improvements. ct abd/pelvis with evidence of possible choledocholithiasis. perc doug tube planned for this AM. on esmolol infusion for afib RVR. fio2 increased to 70%. 11/02: Sodium bicarbonate infusion continued per nephrology in the setting of rhabdomyolysis serial creatinine kinase pending. Cholecystostomy drain placement 100 cc overnight. Continued thrombocytopenia, CBC, serotonin release assay pending. Plan for reinitiation of heparin awaiting GI consultation for possible invasive procedures prior to restarting heparin. Patient sinus rhythm with occasional PAC's. 11/03: No acute events overnight. Sodium bicarbonate infusion discontinued this a.m. had any improved this a.m.. Chest x-ray showed worsening consolidation, FiO2 requirements were increased to 65% during the night. CPAP trials on hold currently. Biliary drainage from cholecystostomy tube revealing gram-negative rods. The patient continues on antibiotics. Bilateral dorsalis pedis pulses monophasic signals by Doppler. Heparin infusion reinitiated. 11/04: Sodium bicarbonate infusion discontinued at 7 AM yesterday. Chest x-ray worsening consolidation versus pleural effusions. FiO2 slightly decreased to 60 %, ABG improving. Pending quantification via ultrasound of pleural fluid in am. Lasix 40mg x1 additional dose provided today . PPN discontinued discussed with Dr. Colon tube feeds initiated at [facility]. Dietary consult ordered. 11/05: Afebrile. Patient tolerating tube feeds advanced to goal rate of 55 cc/ hr. chest x-ray with slight improvement FiO2 decreased to 55% ABG pending. Initiation of CPAP trial to be attempted today. 11/06: Late entry note. Patient seen at 628am. Patient was started on CPAP and continues on CPAP greater than 10 hours. Patient following commands, currently on Precedex infusion. 11/07: Patient remained on CPAP trials for approximately 12 hours yesterday and discontinued because of agitation. CPAP trials reinitiated this a.m. Patient complaint of sore throat Lortab ordered. Patient continues on Precedex for ventilator weaning process. Chest x-ray still shows pulmonary edema, additional dose Lasix 401 dose given this a.m.. When infusion continued, monophasic Doppler signals bilateral dorsalis pedal pulses noted. 11/08: Afebrile . Patient successfully extubated yesterday. Remains on O2 at 4 L nasal cannula O2 saturation 94-95%. Patient continues on heparin infusion, she was noted to have 9 BMs last evening plan for serial H&H's concern for possible stool with occult blood. Repeat stool for occult blood. Plan for possible bedside thoracentesis ,if respiratory requirements increase, currently on O2 4 L via nasal cannula in no apparent distress. 11/11 Late entry, notified of re-consult at 17:[address] Johnson, saw patient and immediately placed L IJ CVL because patient had ripped out an IV and had insufficient peripheral IV access given clinical condition. RN states patient had Hgb 7.5 this morning. Trend was unusual with Hb 8.3--> 12.5 (without transfusion)-->7.5 and lab recommended repeat. Repeat was drawn and was 4.2. Meanwhile, while awaiting re-draw patient became hypotensive, MAP down in the 40s, and was given albumin 25 gram IV. Now he has received 1 unit PRBC and BP improved to 120s/60s. Getting 2 additional units of PRBC stat. Nurse states heparin has been off since 12:30. Sending stat coags/fibrinogen. Patient denies nausea or vomiting. He has some right-sided abdominal pain. There is dark brown drainage from cholecystostomy tube. He has not had a bowel movement in 48 hours. No obvious evidence of GI bleeding. CT abdomen and pelvis has been ordered as "urgent", now giving additional PRBC and then will obtain stat. Gastroenterology has been following and I have notified them of the anemia, though this does not appear to be GI source at this time. 11/12 CT last night showed large retroperitoneal hematoma. Transfused total of 3 units PRBC yest evening. Hgb now 8.3. Coags/fibrinogen in acceptable range this morning, heparin drip off. Patient states much less abdominal pain today. He is alert and oriented now. Coughing, O2 requirement up to 6 L NC, afebrile. 11/13 Had some hemoptysis yesterday. CT with bilateral pleural effusions/ LLL atelectasis vs infiltrate. Now on 8 L SM, tachypneic with more labored breathing today. Edematous, will diurese. He is alert and capacitated currently and agrees to L pleural drainage. Transfused 1 unit PRBC yesterday for Hgb 7.4. He still has some Right sided abdominal pain 11/14: Resting in bed on simple facemask. Hemoglobin 6.9 this morning. Patient denies any worsening shortness of breath or chest pain. 1 unit PRBCs being transfused. Left-sided pigtail catheter placed 11/13 drain 650 cc 11/15 Remains on simple mask, breathing a little labored. L pigtail catheter output is serous, 270 last 24 hours. Planned to tap R pleural effusion but when performed u/s the fluid had decreased significantly and did not appear amenable to drainage; continue diuresis. Labs are pending, nurse is about to draw them. Afebrile Subjective: 11/16 Diuresing, creatinine stable. On NC. Afebrile. L Chest tube output 220. Hgb 7.6 from 8.8. Transfusing 1 unit PRBC. Noted lipase 827. Patient denies n/v /abdominal tenderness. He says he is feeling "much better" and denies abd pain. Objective Vital Signs Date Time Temp Pulse Resp B/P (MAP) Pulse Ox O2 Delivery O2 Flow Rate FiO2 11/16/17 08:25 92 Nasal Cannula 6.00 11/16/17 06:00 75 11/16/17 06:00 20 151/76 (101) 11/16/17 04:00 98.2 Intake and Output 11/16/17 11/16/17 11/17/17 08:00 16:00 00:00 Intake Total 240 ml Output Total 1920 ml Balance -1680 ml Result Diagram: 11/16/17 0330 11/16/17 0330 Imaging Current Medications Medications (Trade) Dose Ordered Sig/Olesya Route Start Time Stop Time Status Last Admin (NS Flush) 2 ml UNSCH PRN IV FLUSH 10/28/17 22:15 (NS Flush) 2 ml BID IV FLUSH 10/29/17 09:00 11/07/17 19:41 (Tylenol) 650 mg Q6H PRN PO 10/28/17 22:15 (Dilaudid Pf Inj) 1 mg Q4H PRN IV 10/28/17 22:30 11/07/17 05:15 (Zofran Inj) 4 mg Q6H PRN IV PUSH 10/28/17 22:15 (Restoril) 15 mg HS PRN PO 10/28/17 22:15 Future Hold (Duoneb Neb) 1 ampule Q2HR NEB PRN INH 10/28/17 22:15 11/08/17 08:15 ([facility]) 1 Q361D XX 10/28/17 22:15 10/28/17 22:15 (Chlorhexidine 2% Cloth) Taper DAILY@04 TOP 10/29/17 04:00 10/25/18 03:59 11/08/17 04:00 (Chlorhexidine 2% Cloth) 3 pack UNSCH PRN TOP 10/28/17 22:15 (Elvira-Colace) 1 tab BID PO 10/29/17 09:00 11/07/17 08:21 (Milk Of Magnesia Liq) 30 ml Q12H PRN PO 10/28/17 22:15 (Senokot) 17.2 mg Q12H PRN PO 10/28/17 22:15 (Dulcolax Supp) 10 mg DAILY PRN RECTAL 10/28/17 22:15 (Lactulose Liq) 30 ml DAILY PRN PO 10/28/17 22:15 (SoluMEDROL INJ) 40 mg Q6HR IV PUSH 10/29/17 00:00 11/08/17 05:11 (Cardizem Cd) 240 mg DAILY PO 10/29/17 09:00 Future Hold 10/30/17 09:02 (Aspirin Chew) 81 mg DAILY CHEW 10/29/17 11:45 Future hold 11/07/17 08:21 (Brethine Inj) 1 mg UNSCH PRN SQ 10/31/17 06:15 (Peridex 0.12% Liq) 15 ml BID@08,20 MT 10/31/17 08:00 11/07/17 08:21 (Apresoline Inj) 20 mg Q4H PRN IV PUSH 11/02/17 14:00 (Catapres) 0.1 mg Q6H PRN PO 11/02/17 23:45 11/04/17 02:35 Heparin Sodium/ Dextrose 250 ml @ 12 mls/hr TITRATE PRN IV 11/03/17 07:00 11/07/17 23:52 (Apresoline) 25 mg Q8HR PO 11/03/17 14:00 11/08/17 05:11 (Lasix Inj) 40 mg DAILY IV PUSH 11/03/17 13:00 11/07/17 08:21 (Trandate) 100 mg Q12HR PO 11/04/17 21:00 11/07/17 19:41 (Mucomyst 20% Neb) 2 ml Q6HR NEB NEB 11/05/17 10:00 11/08/17 08:15 Ampicillin Sodium/ Sulbactam Sodium 3 gm/Sodium Chloride 100 ml @ 200 mls/hr Q6H IV 11/05/17 20:00 11/08/17 01:24 (Pepcid Inj) 20 mg Q12HR IV PUSH 11/06/17 21:00 11/07/17 19:41 (Wayzata 7.5-325 Mg) 1 tab Q6H PRN PO 11/07/17 08:00 11/07/17 09:06 Last Impressions Chest X-Ray 11/07/17 0600 Signed Impressions: CONCLUSION: No appreciable change. Percutaneous Cholangiogram 11/01/17 Signed Impressions: CONCLUSION: 1. Uncomplicated percutaneous cholecystostomy as above. Abdomen/Pelvis CT 11/01/17 Signed Impressions: CONCLUSION: 1. Gallstones. There do appear to be areas of increased density within the com mon bile duct concerning for choledocholithiasis. 2. 4 mm nonobstructing left renal stone. 3. Sigmoid colon diverticula. 4. Bibasilar areas of consolidation or atelectasis being worse on the left wit h mild bilateral pleural effusions. Renal Ultrasound 10/31/17 Signed Impressions: CONCLUSION: 1. No hydronephrosis. 2. Increased cortical echogenicity consistent with medical renal disease. Head Magnetic Resonance Angiography 10/31/17 Signed Impressions: CONCLUSION: 1. Unremarkable MRA of the brain. Head CT 10/31/17 Signed Impressions: CONCLUSION: 1. Negative CT Head non contrast. 2. No evidence of acute infarct, hemorrhage, mass or edema. Brain MRI 10/31/17 Signed Impressions: CONCLUSION: 1. Senescent changes with minimal periventricular ischemic white matter demyel ination. 2. No acute abnormality. Specifically, no acute infarction, mass or hemorrhage . Gall Bladder Ultrasound 10/30/17 Signed Impressions: CONCLUSION: 1. Fatty infiltration of the liver. 2. Multiple stones in the gallbladder. No biliary tract obstruction. Extremity Arterial Study 10/28/17 Signed Impressions: CONCLUSION: 1. Abnormal ABIs, left greater than right. The left DAVID is significantly dimin ished at 0.14. Aorta w/Runoff CTA 10/28/17 Signed Impressions: Service Date/Time: Saturday, October 28, 2017 21:50 - CONCLUSION: 1. Acute occlusion of the left inflow with concern for short segment occlusion involving the distal right inflow. This raises concern for an embolic event. 2. Right lower extremity shows scattered disease throughout the common femoral artery, SFA and [id number] popliteal artery with three-vessel runoff to the foot. 3. Left lower extremity with reconstitution of the common femoral artery with diseased out flow and two vessel runoff to the foot as detailed above. 4. 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 5. Hepatic steatosis. 6. Cholelithiasis. Juanjose Mckeon Jr., MD Last Impressions Chest X-Ray 11/03/17 0600 Signed Impressions: CONCLUSION: Worsening parenchymal consolidation and small effusions at each lung base. Percutaneous Cholangiogram 11/01/17 Signed Impressions: CONCLUSION: 1. Uncomplicated percutaneous cholecystostomy as above. Abdomen/Pelvis CT 11/01/17 Signed Impressions: CONCLUSION: 1. Gallstones. There do appear to be areas of increased density within the com mon bile duct concerning for choledocholithiasis. 2. 4 mm nonobstructing left renal stone. 3. Sigmoid colon diverticula. 4. Bibasilar areas of consolidation or atelectasis being worse on the left wit h mild bilateral pleural effusions. Renal Ultrasound 10/31/17 Signed Impressions: CONCLUSION: 1. No hydronephrosis. 2. Increased cortical echogenicity consistent with medical renal disease. Head Magnetic Resonance Angiography 10/31/17 Signed Impressions: CONCLUSION: 1. Unremarkable MRA of the brain. Head CT 10/31/17 Signed Impressions: CONCLUSION: 1. Negative CT Head non contrast. 2. No evidence of acute infarct, hemorrhage, mass or edema. Brain MRI 10/31/17 Signed Impressions: CONCLUSION: 1. Senescent changes with minimal periventricular ischemic white matter demyel ination. 2. No acute abnormality. Specifically, no acute infarction, mass or hemorrhage . Gall Bladder Ultrasound 10/30/17 Signed Impressions: CONCLUSION: 1. Fatty infiltration of the liver. 2. Multiple stones in the gallbladder. No biliary tract obstruction. Extremity Arterial Study 10/28/17 Signed Impressions: CONCLUSION: 1. Abnormal ABIs, left greater than right. The left DAVID is significantly dimin ished at 0.14. Aorta w/Runoff CTA 10/28/17 Signed Impressions: Service Date/Time: Saturday, October 28, 2017 21:50 - CONCLUSION: 1. Acute occlusion of the left inflow with concern for short segment occlusion involving the distal right inflow. This raises concern for an embolic event. 2. Right lower extremity shows scattered disease throughout the common femoral artery, SFA and [id number] popliteal artery with three-vessel runoff to the foot. 3. Left lower extremity with reconstitution of the common femoral artery with diseased out flow and two vessel runoff to the foot as detailed above. 4. 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 5. Hepatic steatosis. 6. Cholelithiasis. Juanjose Mckeon Jr., MD Last Impressions Percutaneous Cholangiogram 11/01/17 Signed Impressions: CONCLUSION: 1. Uncomplicated percutaneous cholecystostomy as above. Abdomen/Pelvis CT 11/01/17 Signed Impressions: CONCLUSION: 1. Gallstones. There do appear to be areas of increased density within the com mon bile duct concerning for choledocholithiasis. 2. 4 mm nonobstructing left renal stone. 3. Sigmoid colon diverticula. 4. Bibasilar areas of consolidation or atelectasis being worse on the left wit h mild bilateral pleural effusions. Renal Ultrasound 10/31/17 Signed Impressions: CONCLUSION: 1. No hydronephrosis. 2. Increased cortical echogenicity consistent with medical renal disease. Head Magnetic Resonance Angiography 10/31/17 Signed Impressions: CONCLUSION: 1. Unremarkable MRA of the brain. Head CT 10/31/17 Signed Impressions: CONCLUSION: 1. Negative CT Head non contrast. 2. No evidence of acute infarct, hemorrhage, mass or edema. Chest X-Ray 10/31/17 Signed Impressions: CONCLUSION: Satisfactory position of endotracheal and nasogastric tubes. Increasing airspace disease and bilateral effusions. Brain MRI 10/31/17 Signed Impressions: CONCLUSION: 1. Senescent changes with minimal periventricular ischemic white matter demyel ination. 2. No acute abnormality. Specifically, no acute infarction, mass or hemorrhage . Gall Bladder Ultrasound 10/30/17 Signed Impressions: CONCLUSION: 1. Fatty infiltration of the liver. 2. Multiple stones in the gallbladder. No biliary tract obstruction. Extremity Arterial Study 10/28/17 Signed Impressions: CONCLUSION: 1. Abnormal ABIs, left greater than right. The left DAVID is significantly dimin ished at 0.14. Aorta w/Runoff CTA 10/28/17 Signed Impressions: Service Date/Time: Saturday, October 28, 2017 21:50 - CONCLUSION: 1. Acute occlusion of the left inflow with concern for short segment occlusion involving the distal right inflow. This raises concern for an embolic event. 2. Right lower extremity shows scattered disease throughout the common femoral artery, SFA and [id number] popliteal artery with three-vessel runoff to the foot. 3. Left lower extremity with reconstitution of the common femoral artery with diseased out flow and two vessel runoff to the foot as detailed above. 4. 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 5. Hepatic steatosis. 6. Cholelithiasis. Juanjose Mckeon Jr., MD Last 24 hours Impressions Chest X-Ray 10/28/172010 Signed Impressions: Service Date/Time: Saturday, October 28, 2017 20:20 - CONCLUSION: Left lower lobe infiltrate. Mild cardiomegaly. Juanjose Mckeon Jr., MD Objective Remarks GENERAL: This is a well-developed undernourishedmale, sitting up in bed, alert and conversant. SKIN: Warm and dry. HEAD: Normocephalic. ENT: + scleral icterus. No injection or drainage. Pupils are now equal at 3mm, reactive. On NC. NECK: Supple, trachea midline. No JVD. CARDIOVASCULAR: Regular, rate in the 70s. No murmurs rubs or gallops. RESPIRATORY:Appears to be breathing comfortably on nasal cannula with no accessory muscle use.. Coarse breath sounds bilaterally, diminished bibasilar. L chest tube to water seal, no air leak, serous drainage. GASTROINTESTINAL: Abdomen soft, mildly distended, no tenderness to palpation. bowel sounds present. Cholecystostomy tube is in place draining dark brown fluid. No flank hematoma. : Peña in place with light yellow urine output MUSCULOSKELETAL: No cyanosis, 1+ bipedal edema. Bilateral DP with Doppler pulses. Discoloration of left fifth toe. Bruising of right distal forearm and ecchymosis finger tips of right hand with 1+ right hand edema, palpable radial pulse and good chair lift operator. NEURO EXAM: Eyes open, makes eye contact. Oriented to person, place, year. Moves all extremities with no focal deficit A/P Assessment and Plan ASSESSMENT/PLAN: NEURO: Acute metabolic encephalopathy, improved -Lortab as needed for pain -10/31 CT of the head- negative -10/31MRIminimal periventricular ischemic white matter change no acute abnormality RESP: COPD exacerbation, resolved Left lower lobe pneumonia, resolved ARDS, resolved Respiratory distress, improved. Bilateral pleural effusions. -Emergently intubated and placed on mechanical ventilation 10/31/2017. Extubated 11/07/17. -L pigtail chest tube placed with initially 600 mL of serosanginous output. Respiratory status improved. pleural fluid culture negative,pathology pending. Output 220, will check CXR and likely remove. -U/s R pleural effusion on 11/15 - small not amenable to drainage. Continue Symbicort 160/4.52 puffs inhaled every 12 hours Incentive spirometry every hour awake, Acapella. Continue Solumedrol to 40 mg IV q12. Guaifenesin 600 mg p.o. twice daily Continue diuresis as per below. Dr. Johnson following CVS: Hemorrhagic shock, resolved. Secondary to R retroperitoneal hematoma Lactic acidemia Acute on chronic left limb ischemia, improved Paroxysmal atrial fibrillation HTN -CTA showed severe aorto-iliac occlusive disease with left iliac thrombosis. Dr. Lopez evaluated, may need ax-fem bypass at some point but not during this hospitalization. -No longer a candidate for anticoagulation, ASA/Plavix recommended when patient stabilized. Now off antiplatelets both due to large RP bleed and now planned ERCP and GI requests antiplatelets on hold. -Significant calcifications and peripheral vascular disease -2D echo: EF 50%, no significant valvular lesions. left sided pleural effusion -HIT screen negative. CHARLEEN -negative -Continue Cardizem 240 mg p.o. daily GI Acute hepatic dysfunction Hyperbilirubinemia Transaminitis Acute Choledocholithiasis R retroperitoneal hematoma -Trend LFTs. Lipase elevated but he is asymptomatic now. Discussed with Dr. Coats and plan for ERCP Saturday. - gallbladder ultrasound showed multiple gallstones -Repeat CT abdomen/pelvis 11/01: c/w choledocholithiasis - Perc cholecystostomy tube placed 11/01 by IR. -Eventual cholecystectomy when stabilized. Dr. Martins has seen. -Acute hemorrhagic shock on 11/11 while on heparin drip, transfusing as needed. CT with large R retroperitoneal hematoma. Manage medically, IR drain if e/o infection. Gen Surgery following. FEN/RENAL Acute kidney injury Acute metabolic acidosis Initial DEBORA on admission improve Lasix 40 mg IV q12. Nephrology has signed off. ID E COLI bacteremia/severe sepsis, resolved Enterococcus in the urine: possible colonization vs. UTI. Acute Choledocholithiasis/ Cholangitis Biliary fluid gram-negative rods Cholecystostomy placed 11/01. Completed abx course per ID: Unasyn discontinued 11/13. HEME: Acute blood loss anemia overlying anemia of chronic disease acute thrombocytopenia: Initially consumptive secondary to sepsis earlier during admission then consumptive secondary to acute blood loss. - HIT negative. CHARLEEN negative 10/30. Heparin on hold since 12: 30 11/11. Monitor coags, transfuse blood products as indicated. 3 units PRBC 11/11. 1 unit 11/12. 1 unit PRBCs ordered for hemoglobin 6.9 on 11/14. 1 unit PRBC 11/16 DVT GI prophylaxis -Vickey's and SCDs -Heparin infusion on hold due to bleeding. ACCESS: . Placed emergent left IJ central venous line 11/11 #6. PIV -->d/c CVL. Patient states he agrees to reintubation if needed. In the setting of pulseless arrest he would not want CPR, shocks, intubation, ACLS drugs. CODE STATUS is alternate code intubation only. Patient's sister states that he has designated her as healthcare surrogate. He has advanced directives. Palliative care following. Discussed with case management. He has been referred to [facility] and tentatively transfer when stabilized after ERCP. PT/OT/OOB. Level 2 f/u. Niru Puckett MD Nov 16, 2017 12:10
--- NOTE | 2017-11-16 13:06 | RADRPT ---
EXAM DATE: 11/16/2017 1:02 PM EDT AGE/SEX: 67 years / Male INDICATIONS: Pleural effusion CLINICAL DATA: This is the patient's initial encounter. Patient reports that signs and symptoms have been present for 2 weeks and indicates a pain score of 2/10. MEDICAL/SURGICAL HISTORY: . Chronic obstructive pulmonary disease. Left chest tube. None. COMPARISON: [facility], CHEST SINGLE AP, 11/14/2017. [facility], CHEST SINGLE AP, 11/13/2017. . FINDINGS: The patient is rotated towards the left. Left central line tip projects over the proximal superior ve na cava. There are persistent bilateral mid and lower lung infiltrates, partially consolidated on the right and nonconsolidative on the left which are similar in size and appearance when taking into acc ount the patient rotation. Left lower chest pigtail catheter in place. No evidence of pneumothorax. P artial loss of delineation of the lateral hemidiaphragms bilaterally. CONCLUSION: Stable bilateral mid and lower lung infiltrates and pleural effusions. Electronically signed by: Juanjose Frances MD 11/16/2017 1:04 PM EDT
--- NOTE | 2017-11-16 13:07 | HHI.PR ---
Subjective Remarks ALERT NO DISTRESS Objective Vital Signs Date Time Temp Pulse Resp B/P (MAP) Pulse Ox O2 Delivery O2 Flow Rate FiO2 11/16/17 08:25 92 Nasal Cannula 6.00 11/16/17 08:00 83 11/16/17 06:00 75 11/16/17 06:00 75 20 151/76 (101) 99 11/16/17 05:00 73 11/16/17 05:00 73 20 140/74 (96) 98 11/16/17 04:00 75 11/16/17 04:00 98.2 75 20 132/80 (97) 99 11/16/17 03:00 73 11/16/17 03:00 73 20 137/87 (104) 97 11/16/17 02:00 75 11/16/17 02:00 75 20 140/74 (96) 97 11/16/17 01:00 77 11/16/17 01:00 77 20 135/72 (93) 98 11/16/17 00:00 98.2 75 24 149/66 (93) 95 11/16/17 00:00 75 11/15/17 23:00 76 24 142/69 (93) 95 11/15/17 23:00 76 11/15/17 22:00 79 11/15/17 22:00 79 24 148/71 (96) 95 11/15/17 21:31 94 Simple Mask 10.00 11/15/17 21:00 80 11/15/17 21:00 80 24 128/88 (101) 93 11/15/17 20:00 75 24 136/66 (89) 94 11/15/17 20:00 75 11/15/17 19:00 98.3 79 24 150/77 (101) 94 11/15/17 19:00 85 11/15/17 16:00 82 23 140/91 (107) 94 11/15/17 16:00 82 I/O 11/15/17 11/15/17 11/15/17 11/16/17 11/16/17 11/16/17 07:00 15:00 23:00 07:00 15:00 23:00 Intake Total 350 ml 50 ml 50 ml 240 ml Output Total 1800 ml 1450 ml 1920 ml Balance -1450 ml 50 ml -1400 ml -1680 ml Intake Oral 350 ml 240 ml IV Total 50 ml 50 ml Output Urine Total 1550 ml 1350 ml 1500 ml Chest Tube Drainage Total 120 ml 220 ml Drainage Total 130 ml 100 ml 200 ml # Bowel Movements 0 0 0 Result Diagram: 11/16/1732911/16/17329 Objective Remarks GENERAL: SKIN: Warm and dry. HEAD: Atraumatic. Normocephalic. EYES: Pupils equal and round. No scleral icterus. No injection or drainage. ENT: No nasal bleeding or discharge. Mucous membranes pink and moist. NECK: Trachea midline. No JVD. CARDIOVASCULAR: Regular rate and rhythm. RESPIRATORY: No accessory muscle use. Clear to auscultation. Breath sounds equal bilaterally. GASTROINTESTINAL: Abdomen soft, non-tender, nondistended. Hepatic and splenic margins not palpable. MUSCULOSKELETAL: Extremities without clubbing, cyanosis, or edema. No obvious deformities. NEUROLOGICAL: Awake and alert. No obvious cranial nerve deficits. Motor grossly within normal limits. Five out of 5 muscle strength in the arms and legs. Normal speech. PSYCHIATRIC: Appropriate mood and affect; insight and judgment normal. Assessment and Plan Assessment and Plan IMPPRESSION PNA COPD PLAN O2 ANTIBX BRONCHODILATOR THERAPY INCREASE ACTIVITY Stiven Saleem MD Nov 16, 2017 13:07
--- NOTE | 2017-11-16 22:29 | RADRPT ---
EXAM DATE: 11/16/2017 10:23 PM EDT AGE/SEX: 67 years / Male INDICATIONS: Chest tube removal. CLINICAL DATA: This is the patient's subsequent encounter. Patient reports that signs and symptoms h ave been present for 2 weeks and indicates a pain score of 0/10. MEDICAL/SURGICAL HISTORY: . Chronic obstructive pulmonary disease. Left chest tube. None. COMPARISON: [facility] [place]ST SINGLE AP, 11/16/2017. . FINDINGS: Left central line tip in superior vena cava. Bilateral mostly basilar airspace disease with trace ple ural fluid. Cardiomegaly. No pneumothorax. CONCLUSION: Removal of left chest tube without significant pneumothorax. Bilateral mostly basilar airspace diseas e relatively stable. Electronically signed by: Christopher Kaur MD 11/16/2017 10:28 PM EDT
[2017-11-17] VITALS (25 sets, daily range): BP systolic 126–157; BP diastolic 59–86; PULSE 79–94; RESP 16–27; TEMP 98.3–98.8; O2SAT 90–97
[2017-11-17] MEDS: CHLORHEXIDINE GLUCONATE 2 % 1 PACK (2 CLOTHS) TOP SCH (03:15)
[2017-11-17 04:46] LABS: AUTOMATED NEUTROPHIL # 9.6 TH/MM3 (1.8-7.7); BASOPHIL % 0.2 % (0.0-2.0); HEMATOCRIT 23.5 % (39.0-51.0); HEMOGLOBIN 8.1 GM/DL (13.0-17.0); LYMPH % 0.8 % (9.0-44.0); LYMPHOCYTE # 0.1 TH/MM3 (1.0-4.8); MEAN CELL VOLUME 92.2 FL (80.0-100.0); MEAN CORPUSCULAR HEMOGLOBIN 31.8 PG (27.0-34.0); MEAN CORPUSCULAR HGB CONC 34.5 % (32.0-36.0); MEAN PLATELET VOLUME 10.7 FL (7.0-11.0); MONO % 2.1 % (0.0-8.0); MONOCYTE # 0.2 TH/MM3 (0-0.9); NEUT % 96.9 % (16.0-70.0); PLATELET COUNT 82 TH/MM3 (150-450); RED BLOOD COUNT 2.54 MIL/MM3 (4.50-5.90); RED CELL DISTRIBUTION WIDTH 17.8 % (11.6-17.2); WHITE BLOOD COUNT 9.9 TH/MM3 (4.0-11.0)
[2017-11-17] MEDS: hydrALAZINE HCL 25 MG TAB PO SCH ×3 (05:05→22:23)
[2017-11-17] MEDS: ALBUMIN 25% INJ 50 ML IV SCH ×2 (05:05→16:53)
[2017-11-17 05:07] LABS: ALBUMIN 3.4 GM/DL (3.4-5.0); AST (GOT) 39 U/L (15-37); BICARBONATE 29.4 MEQ/L (21.0-32.0); BLOOD UREA NITROGEN 36 MG/DL (7-18); CALCIUM 8.1 MG/DL (8.5-10.1); CHLORIDE 109 MEQ/L (98-107); GLOMERULAR FILTRATION RATE 74 ML/MIN (>89); GLUCOSE,RANDOM 124 MG/DL (74-106); SODIUM (NA) 147 MEQ/L (136-145)
[2017-11-17 05:09] LABS: ALT (GPT) 92 U/L (12-78)
[2017-11-17 05:11] LABS: ALKALINE PHOSPHATASE 52 U/L (45-117); TOTAL BILIRUBIN ADULT 5.3 MG/DL (0.2-1.0); TOTAL PROTEIN 5.4 GM/DL (6.4-8.2)
[2017-11-17 05:44] LABS: STOMATOCYTES 1+ (NORMAL)
[2017-11-17] MEDS: POTASSIUM CHLOR 20 MEQ PREMIX 100 ML IV PRN ×2 (05:47→08:13)
[2017-11-17] MEDS: CHLORHEXIDINE 0.12% (ORAL KIT) 15 ML CUP MT SCH ×2 (08:00→19:51)
[2017-11-17] MEDS: SODIUM CHLORIDE 0.9% FLUSH 10 ML FLUSH IV FLUSH SCH ×2 (08:06→19:52)
[2017-11-17] MEDS: NYSTATIN SUSP 500,000 U/5 ML CUP SWISH-SWAL SCH ×4 (08:06→19:52)
[2017-11-17] MEDS: FUROSEMIDE 40 MG/4 ML VIAL IV PUSH SCH ×2 (08:06→19:52)
[2017-11-17] MEDS: DILTIAZEM-CD 240 MG CAP ER PO SCH (08:06)
[2017-11-17] MEDS: guaiFENesin E.R. 600 MG TAB PO SCH ×2 (08:06→19:52)
[2017-11-17] MEDS: FAMOTIDINE 20 MG TAB PO SCH ×2 (08:06→19:52)
[2017-11-17] MEDS: BUDESONIDE-FORMOTEROL 160/4.5 MCG INHALER INH SCH ×2 (08:13→19:52)
[2017-11-17] MEDS: RESP: ALBUTEROL 2.5 MG/IPRATROPIUM 0.5 MG NEB (SCH) NEB ×3 (08:26→20:40)
--- NOTE | 2017-11-17 11:37 | HHI.GIFU ---
Subjective Remarks Patient is resting in the bed eyes open response to verbal stimuli Does appear weakened but he is answering questions appropriately Abdomen taut, round, semifirm no obvious abdominal pain Right abdominal biliary drain intact Continues with mild shortness of breath but O2 sat maintained at 95 Heart rate 88 sinus rhythm (Maura Lauren) Objective Vitals I&O Vital Signs Date Time Temp Pulse Resp B/P (MAP) Pulse Ox O2 Delivery O2 Flow Rate FiO2 11/17/17 10:00 85 11/17/17 08:27 94 Simple Mask 8.00 11/17/17 08:00 98.3 80 18 144/80 (101) 95 11/17/17 08:00 80 11/17/17 07:00 93 Simple Mask 8.00 11/17/17 06:00 80 11/17/17 06:00 80 20 126/61 (82) 96 11/17/17 05:00 80 11/17/17 05:00 80 20 142/67 (92) 90 11/17/17 04:00 98.7 82 20 133/72 (92) 95 11/17/17 04:00 82 11/17/17 03:00 81 11/17/17 03:00 81 20 126/61 (82) 91 11/17/17 02:00 79 20 126/59 (81) 92 11/17/17 02:00 79 11/17/17 01:00 87 20 135/62 (86) 93 11/17/17 01:00 87 11/17/17 00:00 98.7 81 24 149/70 (96) 93 11/17/17 00:00 81 11/16/17 23:30 91 Simple Mask 8.00 11/16/17 23:00 83 11/16/17 23:00 83 20 138/67 (90) 94 11/16/17 22:00 85 11/16/17 22:00 85 24 152/79 (103) 92 11/16/17 21:49 95 Simple Mask 8.00 11/16/17 21:00 98 24 162/89 (113) 98 11/16/17 21:00 98 11/16/17 20:00 91 28 169/84 (112) 98 11/16/17 20:00 91 11/16/17 19:50 85 Partial Non-Rebreather 11/16/17 19:38 96 Partial Rebreather 12.00 11/16/17 19:00 98.3 92 24 120/58 (78) 92 11/16/17 19:00 81 11/16/17 19:00 88 Nasal Cannula 6.00 11/16/17 18:00 84 11/16/17 16:00 78 11/16/17 16:00 98.3 94 23 120/58 (78) 95 11/16/17 14:00 83 11/16/17 12:00 83 11/16/17 12:00 98.5 98 19 132/71 (91) 89 I/O 11/16/17 11/16/17 11/16/17 11/17/17 11/17/17 11/17/17 07:00 15:00 23:00 07:00 15:00 23:00 Intake Total 240 ml 250 ml 300 ml Output Total 1920 ml 450 ml 1320 ml Balance -1680 ml -200 ml -1020 ml Intake Oral 240 ml 200 ml 300 ml IV Total 50 ml Output Urine Total 1500 ml 350 ml 1250 ml Chest Tube Drainage Total 220 ml Drainage Total 200 ml 100 ml 70 ml # Bowel Movements 0 0 0 Laboratory Laboratory Tests Test 11/17/17 04:21 White Blood Count 9.9 Red Blood Count 2.54 Hemoglobin 8.1 Hematocrit 23.5 Mean Corpuscular Volume 92.2 Mean Corpuscular Hemoglobin 31.8 Mean Corpuscular Hemoglobin Concent 34.5 Red Cell Distribution Width 17.8 Platelet Count 82 Mean Platelet Volume 10.7 Neutrophils (%) (Auto) 96.9 Lymphocytes (%) (Auto) 0.8 Monocytes (%) (Auto) 2.1 Eosinophils (%) (Auto) 0.0 Basophils (%) (Auto) 0.2 Neutrophils # (Auto) 9.6 Lymphocytes # (Auto) 0.1 Monocytes # (Auto) 0.2 Eosinophils # (Auto) 0.0 Basophils # (Auto) 0.0 CBC Comment AUTO DIFF Differential Comment AUTO DIFF CONFIRMED Platelet Estimate LOW Platelet Morphology Comment NORMAL Basophilic Stippling FAINT Stomatocytes 1+ Blood Urea Nitrogen 36 Creatinine 1.00 Random Glucose 124 Total Protein 5.4 Albumin 3.4 Calcium Level 8.1 Alkaline Phosphatase 52 Aspartate Amino Transf (AST/SGOT) 39 Alanine Aminotransferase (ALT/SGPT) 92 Total Bilirubin 5.3 Sodium Level 147 Potassium Level 3.4 Chloride Level 109 Carbon Dioxide Level 29.4 Anion Gap 9 Estimat Glomerular Filtration Rate 74 Lipase 542 Date/Time Source Procedure Growth Status 10/30/17 20:38 Blood Peripheral Aerobic Blood Culture - Final NO GROWTH IN 5 DAYS Complete 10/30/17 20:38 Blood Peripheral Anaerobic Blood Culture - Final NO GROWTH IN 5 DAYS Complete 11/13/17 12:00 Fluid Pleural Fluid Gram Stain - Final Complete 11/13/17 12:00 Fluid Pleural Fluid Body Fluid Culture - Final NO GROWTH IN 72 HRS.--AEROBICALLY OR ... Complete 11/04/17 05:08 Stool Stool Stool Occult Blood (NUBIA) - Final HEMOCCULT POSITIVE Complete 10/31/17 10:40 Sputum Endotracheal Gram Stain - Final Complete 10/31/17 10:40 Sputum Endotracheal Sputum Culture - Final HEAVY GROWTH NORMAL RESPIRATORY TERRELL Complete 10/29/17 00:00 Urine Catheterized Urine Urine Culture - Final Enterococcus Faecalis Complete Imaging Last Impressions Chest X-Ray 11/16/17 0000 Signed Impressions: CONCLUSION: Removal of left chest tube without significant pneumothorax. Bilateral mostly b asilar airspace disease relatively stable. Chest CT 11/12/17 0000 Signed Impressions: CONCLUSION: 1. Bilateral pleural effusions left greater than right. Areas of infiltrate ve rsus atelectasis left lung base difficult to rule out a small superimposed pneu monia. 2. Dense coronary atherosclerotic disease. Abdomen/Pelvis CT 11/11/17 1853 Signed Impressions: CONCLUSION: 1. New complex fluid collection in the right-sided the abdomen which appears t o be extraperitoneal anterior to the right psoas muscle and displacing the righ t colon medially. Fluid collection measures up to 21 cm in length and 10.7 cm i n maximal diameter. Differential diagnosis includes hematoma or infection/absce ss. 2. Mild free fluid within the abdomen. 3. Mild anasarca. 4. Cholecystostomy tube in right upper quadrant without fluid directly around the gallbladder. 5. Small to moderate bilateral effusions with slight improvement in basilar mani ng consolidation since November 01. Chest Ultrasound 11/07/17 0000 Signed Impressions: CONCLUSION: 1. Left-sided pleural effusion. Percutaneous Cholangiogram 11/01/17 0000 Signed Impressions: CONCLUSION: 1. Uncomplicated percutaneous cholecystostomy as above. Renal Ultrasound 10/31/17 0000 Signed Impressions: CONCLUSION: 1. No hydronephrosis. 2. Increased cortical echogenicity consistent with medical renal disease. Head Magnetic Resonance Angiography 10/31/17 Signed Impressions: CONCLUSION: 1. Unremarkable MRA of the brain. Head CT 10/31/17 Signed Impressions: CONCLUSION: 1. Negative CT Head non contrast. 2. No evidence of acute infarct, hemorrhage, mass or edema. Brain MRI 10/31/17 Signed Impressions: CONCLUSION: 1. Senescent changes with minimal periventricular ischemic white matter demyel ination. 2. No acute abnormality. Specifically, no acute infarction, mass or hemorrhage . Gall Bladder Ultrasound 10/30/17 Signed Impressions: CONCLUSION: 1. Fatty infiltration of the liver. 2. Multiple stones in the gallbladder. No biliary tract obstruction. Extremity Arterial Study 10/28/17 Signed Impressions: CONCLUSION: 1. Abnormal ABIs, left greater than right. The left DAVID is significantly dimin ished at 0.14. Aorta w/Runoff CTA 10/28/17 Signed Impressions: Service Date/Time: Saturday, October 28, 2017 21:50 - CONCLUSION: 1. Acute occlusion of the left inflow with concern for short segment occlusion involving the distal right inflow. This raises concern for an embolic event. 2. Right lower extremity shows scattered disease throughout the common femoral artery, SFA and [id number] popliteal artery with three-vessel runoff to the foot. 3. Left lower extremity with reconstitution of the common femoral artery with diseased out flow and two vessel runoff to the foot as detailed above. 4. 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 5. Hepatic steatosis. 6. Cholelithiasis. Juanjose Mckeon Jr., MD Physical Exam HEENT: Normocephalic; atraumatic, weakened CHEST - Even/unlabored-simple mass, chest tube left side removed without any obvious complications CARDIAC: RRR heart rate 88 ABDOMEN: Distended, taut, bowel sounds active, nontender. Right side/flank biliary drain with good drainage. SKIN: Normal; no rash; no jaundice. 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 S/P IR for percutaneous cholecystostomy drain on 11/01 - Culture with heavy growth of gram positive and gram negative enteric terrell, no further work up Pt on Unasyn - Elevated LFTs- likely secondary to obstruction from above but liver work up pending Iron-145 TIBC-214 %sat-67.7 Ferritin-248 AFP-6.9 Hepatitis panel negative [place], AMA, ASMA negative. AAT-215 Ceruloplasmin-24 - Anemia, normocytic- with Hemoccult positive stools- no obvious GIB - Cold left leg- Heparin gtt (11/08) Pt now extubated, alert and oriented, tolerating PO. Denies nausea, vomiting, abdominal pain. Discussed plan for ERCP this week. Will need clearance to DC Heparin gtt past midnight for procedure. Pt had multiple BMs yesterday, Hemoccult stool ordered per [facility], has had no BM over night or today per RN. H/H stable (11/10) Pt remains on 6 L O2 via NC. Drop in hgb noted, no BMs documented since 11/08. (11/11) Pt on 5 L O2 via NC. No repeat labs from today. Denies BM in a few days. (11/12) Pt on 6 L O2 via NC. Significant drop in hgb noted yesterday, no obvious source of GIB. Pt had a BM this morning but according to RN was not bloody or black and tarry. CT abdomen and pelvis done yesterday reveals retroperitoneal hematoma. Vascular surgery saw pt, discontinued Heparin gtt, planning on Plavix and ASA when able. Discussed case with [employer] Dr. Puckett, pt is still too unstable for ERCP and has multiple medical problems at this time. I advised that we would be signing off but gladly available if needed or if pt becomes more stable. Patient examined on 11/17/2017, continues to be on simple mask, patient states mild shortness of breath O2 sat 95. Awake answers questions appropriate Left chest tube removed today without any complications. Continues with right- sided biliary drain. Current hemoglobin 8.1, continues with lower extremity edema. Plan for ERCP in the a.m., consent ordered. Patient will need to be reassessed in the morning for his stability but appears okay today. Plan ERCP in a.m., consent Monitor output from cholecystostomy drain Monitor LFTs and other labs Antibiotics per ID Notify GI if any obvious GIB Further recommendations after ERCP Pt has been seen and examined by myself and Dr. Coats and this note is written on his behalf (Maura Lauren) Physician Comments Agree with above plan. Stable from respiratory point of view. Sats improved on NC. Will schedule ERCP in AM. Further recommendations to follow. (James Coats MD) Problem Qualifiers (1) Sepsis: Qualified Codes: A41.9 - Sepsis, unspecified organism Maura Lauren Nov 17, 2017 11:37 James Coats MD Nov 17, 2017 12:14
[2017-11-17] MEDS: methylPREDNISolone SOD SUCC 40 MG/1 ML VIAL IV PUSH SCH ×2 (13:05→22:24)
--- NOTE | 2017-11-17 16:46 | HHI.PR ---
Subjective Remarks ALERT NO DISTRESS Objective Vital Signs Date Time Temp Pulse Resp B/P (MAP) Pulse Ox O2 Delivery O2 Flow Rate FiO2 11/17/17 16:00 98.8 83 19 147/80 (102) 92 11/17/17 16:00 83 11/17/17 14:00 88 11/17/17 12:00 98.3 84 23 135/67 (89) 97 11/17/17 12:00 84 11/17/17 10:00 85 11/17/17 08:27 94 Simple Mask 8.00 11/17/17 08:00 98.3 80 18 144/80 (101) 95 11/17/17 08:00 80 11/17/17 07:00 93 Simple Mask 8.00 11/17/17 06:00 80 11/17/17 06:00 80 20 126/61 (82) 96 11/17/17 05:00 80 11/17/17 05:00 80 20 142/67 (92) 90 11/17/17 04:00 98.7 82 20 133/72 (92) 95 11/17/17 04:00 82 11/17/17 03:00 81 11/17/17 03:00 81 20 126/61 (82) 91 11/17/17 02:00 79 20 126/59 (81) 92 11/17/17 02:00 79 11/17/17 01:00 87 20 135/62 (86) 93 11/17/17 01:00 87 11/17/17 00:00 98.7 81 24 149/70 (96) 93 11/17/17 00:00 81 11/16/17 23:30 91 Simple Mask 8.00 11/16/17 23:00 83 11/16/17 23:00 83 20 138/67 (90) 94 11/16/17 22:00 85 11/16/17 22:00 85 24 152/79 (103) 92 11/16/17 21:49 95 Simple Mask 8.00 11/16/17 21:00 98 24 162/89 (113) 98 11/16/17 21:00 98 11/16/17 20:00 91 28 169/84 (112) 98 11/16/17 20:00 91 11/16/17 19:50 85 Partial Non-Rebreather 11/16/17 19:38 96 Partial Rebreather 12.00 11/16/17 19:00 98.3 92 24 120/58 (78) 92 11/16/17 19:00 81 11/16/17 19:00 88 Nasal Cannula 6.00 11/16/17 18:00 84 I/O 11/16/17 11/16/17 11/16/17 11/17/17 11/17/17 11/17/17 07:00 15:00 23:00 07:00 15:00 23:00 Intake Total 240 ml 250 ml 300 ml 50 ml Output Total 1920 ml 450 ml 1320 ml Balance -1680 ml -200 ml -1020 ml 50 ml Intake Oral 240 ml 200 ml 300 ml IV Total 50 ml 50 ml Output Urine Total 1500 ml 350 ml 1250 ml Chest Tube Drainage Total 220 ml Drainage Total 200 ml 100 ml 70 ml # Bowel Movements 0 0 0 Result Diagram: 11/17/1742011/17/17420 Objective Remarks GENERAL: SKIN: Warm and dry. HEAD: Atraumatic. Normocephalic. EYES: Pupils equal and round. No scleral icterus. No injection or drainage. ENT: No nasal bleeding or discharge. Mucous membranes pink and moist. NECK: Trachea midline. No JVD. CARDIOVASCULAR: Regular rate and rhythm. RESPIRATORY: No accessory muscle use. Clear to auscultation. Breath sounds equal bilaterally. GASTROINTESTINAL: Abdomen soft, non-tender, nondistended. Hepatic and splenic margins not palpable. MUSCULOSKELETAL: Extremities without clubbing, cyanosis, or edema. No obvious deformities. NEUROLOGICAL: Awake and alert. No obvious cranial nerve deficits. Motor grossly within normal limits. Five out of 5 muscle strength in the arms and legs. Normal speech. PSYCHIATRIC: Appropriate mood and affect; insight and judgment normal. GENERAL: SKIN: Warm and dry. HEAD: Atraumatic. Normocephalic. EYES: Pupils equal and round. No scleral icterus. No injection or drainage. ENT: No nasal bleeding or discharge. Mucous membranes pink and moist. NECK: Trachea midline. No JVD. CARDIOVASCULAR: Regular rate and rhythm. RESPIRATORY: No accessory muscle use. Clear to auscultation. Breath sounds equal bilaterally. GASTROINTESTINAL: Abdomen soft, non-tender, nondistended. Hepatic and splenic margins not palpable. MUSCULOSKELETAL: Extremities without clubbing, cyanosis, or edema. No obvious deformities. NEUROLOGICAL: Awake and alert. No obvious cranial nerve deficits. Motor grossly within normal limits. Five out of 5 muscle strength in the arms and legs. Normal speech. PSYCHIATRIC: Appropriate mood and affect; insight and judgment normal. Assessment and Plan Assessment and Plan IMPPRESSION PNA COPD PLAN O2 ANTIBX BRONCHODILATOR THERAPY INCREASE ACTIVITY Stiven Saleem MD Nov 17, 2017 16:46
--- NOTE | 2017-11-17 22:05 | HHI.CCPN ---
Subjective Remarks/Hospital Course 67-year-old male presents to the emergency department via EMS for evaluation of shortness of breath and pain and numbness to the left leg. Patient believes that he is shortness of breath is related to the pain in his leg. He cannot feel his leg from his groin down. He denies any history of the same. He does report history of COPD. He denies any known fevers or chills. He denies chest pain. Patient received 1 L normal saline bolus via EMS. Patient denies any history of bleeding or blood clots. No recent surgery or travel. No hemoptysis. No history of DVT/PE. He denies leg edema. Patient states the pain is 10/10 to the left leg. No exacerbating or alleviating factors. Moderate severity. 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 The right inflow is heavily diseased as well. The patient was evaluated by vascular surgeon energy conservation engineer and was immediately started on heparin drip. SUBJ 10/29: Remains critically ill, encephalopathy. 4 out of 4 bottles positive for GNR. I will change Rocephin to Zosyn renally dosed to cover for Pseudomonas also. Continue azithromycin. Creatinine still elevated but slightly improved. WBC count slightly increased 17.2 now with 24% bands. Source of GNR sepsis could be either UTI or pneumonia. Will consult ID as well. Remains on IV heparin for acute left limb ischemia 10/30: platelets falling >50% again today. Cr still rising, but could be ATN/ contrast nephropathy. blood cultures growing e. coli by PCR, full speciation to follow. urine culture pending. discussed case with Dr. Lopez, will stop heparin , start argatroban and send HIT/CHARLEEN. denies complaints for me, but does have objective tenderness on palpation, RUQ. 10/31: Emergently intubated today a.m. by Dr. Puckett for worsening mental status, encephalopathy and worsening respiratory failure. Prior to intubation Dr. Puckett ' exam revealed right upper quadrant tenderness. Ultrasound of the gallbladder yesterday showed gallstones. Overnight Argatroban was supratherapeutic and was held, platelet count also dropped to 30,000, HIT screen is pending. Postintubation bilateral pupils are reactive but unequal. Will repeat CT of the head, CT abdomen pelvis. BUN 49/Creat 2.7, leukocytosis persisting 11/01: no improvements. ct abd/pelvis with evidence of possible choledocholithiasis. perc doug tube planned for this AM. on esmolol infusion for afib RVR. fio2 increased to 70%. 11/02: Sodium bicarbonate infusion continued per nephrology in the setting of rhabdomyolysis serial creatinine kinase pending. Cholecystostomy drain placement 100 cc overnight. Continued thrombocytopenia, CBC, serotonin release assay pending. Plan for reinitiation of heparin awaiting GI consultation for possible invasive procedures prior to restarting heparin. Patient sinus rhythm with occasional PAC's. 11/03: No acute events overnight. Sodium bicarbonate infusion discontinued this a.m. had any improved this a.m.. Chest x-ray showed worsening consolidation, FiO2 requirements were increased to 65% during the night. CPAP trials on hold currently. Biliary drainage from cholecystostomy tube revealing gram-negative rods. The patient continues on antibiotics. Bilateral dorsalis pedis pulses monophasic signals by Doppler. Heparin infusion reinitiated. 11/04: Sodium bicarbonate infusion discontinued at 7 AM yesterday. Chest x-ray worsening consolidation versus pleural effusions. FiO2 slightly decreased to 60 %, ABG improving. Pending quantification via ultrasound of pleural fluid in am. Lasix 40mg x1 additional dose provided today . PPN discontinued discussed with Dr. Colon tube feeds initiated at [facility]. Dietary consult ordered. 11/05: Afebrile. Patient tolerating tube feeds advanced to goal rate of 55 cc/ hr. chest x-ray with slight improvement FiO2 decreased to 55% ABG pending. Initiation of CPAP trial to be attempted today. 11/06: Late entry note. Patient seen at 628am. Patient was started on CPAP and continues on CPAP greater than 10 hours. Patient following commands, currently on Precedex infusion. 11/07: Patient remained on CPAP trials for approximately 12 hours yesterday and discontinued because of agitation. CPAP trials reinitiated this a.m. Patient complaint of sore throat Lortab ordered. Patient continues on Precedex for ventilator weaning process. Chest x-ray still shows pulmonary edema, additional dose Lasix 401 dose given this a.m.. When infusion continued, monophasic Doppler signals bilateral dorsalis pedal pulses noted. 11/08: Afebrile . Patient successfully extubated yesterday. Remains on O2 at 4 L nasal cannula O2 saturation 94-95%. Patient continues on heparin infusion, she was noted to have 9 BMs last evening plan for serial H&H's concern for possible stool with occult blood. Repeat stool for occult blood. Plan for possible bedside thoracentesis ,if respiratory requirements increase, currently on O2 4 L via nasal cannula in no apparent distress. 11/11 Late entry, notified of re-consult at 17:[address] Johnson, saw patient and immediately placed L IJ CVL because patient had ripped out an IV and had insufficient peripheral IV access given clinical condition. RN states patient had Hgb 7.5 this morning. Trend was unusual with Hb 8.3--> 12.5 (without transfusion)-->7.5 and lab recommended repeat. Repeat was drawn and was 4.2. Meanwhile, while awaiting re-draw patient became hypotensive, MAP down in the 40s, and was given albumin 25 gram IV. Now he has received 1 unit PRBC and BP improved to 120s/60s. Getting 2 additional units of PRBC stat. Nurse states heparin has been off since 12:30. Sending stat coags/fibrinogen. Patient denies nausea or vomiting. He has some right-sided abdominal pain. There is dark brown drainage from cholecystostomy tube. He has not had a bowel movement in 48 hours. No obvious evidence of GI bleeding. CT abdomen and pelvis has been ordered as "urgent", now giving additional PRBC and then will obtain stat. Gastroenterology has been following and I have notified them of the anemia, though this does not appear to be GI source at this time. 11/12 CT last night showed large retroperitoneal hematoma. Transfused total of 3 units PRBC yest evening. Hgb now 8.3. Coags/fibrinogen in acceptable range this morning, heparin drip off. Patient states much less abdominal pain today. He is alert and oriented now. Coughing, O2 requirement up to 6 L NC, afebrile. 11/13 Had some hemoptysis yesterday. CT with bilateral pleural effusions/ LLL atelectasis vs infiltrate. Now on 8 L SM, tachypneic with more labored breathing today. Edematous, will diurese. He is alert and capacitated currently and agrees to L pleural drainage. Transfused 1 unit PRBC yesterday for Hgb 7.4. He still has some Right sided abdominal pain 11/14: Resting in bed on simple facemask. Hemoglobin 6.9 this morning. Patient denies any worsening shortness of breath or chest pain. 1 unit PRBCs being transfused. Left-sided pigtail catheter placed 11/13 drain 650 cc 11/15 Remains on simple mask, breathing a little labored. L pigtail catheter output is serous, 270 last 24 hours. Planned to tap R pleural effusion but when performed u/s the fluid had decreased significantly and did not appear amenable to drainage; continue diuresis. Labs are pending, nurse is about to draw them. Afebrile 11/16 Diuresing, creatinine stable. On NC. Afebrile. L Chest tube output 220. Hgb 7.6 from 8.8. Transfusing 1 unit PRBC. Noted lipase 827. Patient denies n/v /abdominal tenderness. He says he is feeling "much better" and denies abd pain. Subjective: 11/17 Chest tube removed yesterday without complication. Labored breathing when he got OOB overnight. He is tired of wearing simple mask so he wants to try HFNC. Depressed today, is worried his ERCP will get canceled. Wants to get out of the hospital. Case management working on transfer to [facility] when cleared following ERCP. Objective Vital Signs Date Time Temp Pulse Resp B/P (MAP) Pulse Ox O2 Delivery O2 Flow Rate FiO2 11/17/17 20:42 94 High Flow Nasal Cannula 20.00 70 11/17/17 20:00 98.3 86 27 129/67 (87) Intake and Output 11/17/17 11/17/17 11/18/17 08:00 16:00 00:00 Intake Total 300 ml 50 ml 750 ml Output Total 1320 ml 1410 ml Balance -1020 ml 50 ml -660 ml Result Diagram: 11/17/17 0421 11/17/17 0421 Imaging Current Medications Medications (Trade) Dose Ordered Sig/Olesya Route Start Time Stop Time Status Last Admin (NS Flush) 2 ml UNSCH PRN IV FLUSH 10/28/17 22:15 (NS Flush) 2 ml BID IV FLUSH 10/29/17 09:00 11/07/17 19:41 (Tylenol) 650 mg Q6H PRN PO 10/28/17 22:15 (Dilaudid Pf Inj) 1 mg Q4H PRN IV 10/28/17 22:30 11/07/17 05:15 (Zofran Inj) 4 mg Q6H PRN IV PUSH 10/28/17 22:15 (Restoril) 15 mg HS PRN PO 10/28/17 22:15 Future Hold (Duoneb Neb) 1 ampule Q2HR NEB PRN INH 10/28/17 22:15 11/08/17 08:15 ([facility] Nursing Information) 1 Q361D XX 10/28/17 22:15 10/28/17 22:15 (Chlorhexidine 2% Cloth) Taper DAILY@04 TOP 10/29/17 04:00 10/25/18 03:59 11/08/17 04:00 (Chlorhexidine 2% Cloth) 3 pack UNSCH PRN TOP 10/28/17 22:15 (Elvira-Colace) 1 tab BID PO 10/29/17 09:00 11/07/17 08:21 (Milk Of Magnesia Liq) 30 ml Q12H PRN PO 10/28/17 22:15 (Senokot) 17.2 mg Q12H PRN PO 10/28/17 22:15 (Dulcolax Supp) 10 mg DAILY PRN RECTAL 10/28/17 22:15 (Lactulose Liq) 30 ml DAILY PRN PO 10/28/17 22:15 (SoluMEDROL INJ) 40 mg Q6HR IV PUSH 10/29/17 00:00 11/08/17 05:11 (Cardizem Cd) 240 mg DAILY PO 10/29/17 09:00 Future Hold 10/30/17 09:02 (Aspirin Chew) 81 mg DAILY CHEW 10/29/17 11:45 Future hold 11/07/17 08:21 (Brethine Inj) 1 mg UNSCH PRN SQ 10/31/17 06:15 (Peridex 0.12% Liq) 15 ml BID@08,20 MT 10/31/17 08:00 11/07/17 08:21 (Apresoline Inj) 20 mg Q4H PRN IV PUSH 11/02/17 14:00 (Catapres) 0.1 mg Q6H PRN PO 11/02/17 23:45 11/04/17 02:35 Heparin Sodium/ Dextrose 250 ml @ 12 mls/hr TITRATE PRN IV 11/03/17 07:00 11/07/17 23:52 (Apresoline) 25 mg Q8HR PO 11/03/17 14:00 11/08/17 05:11 (Lasix Inj) 40 mg DAILY IV PUSH 11/03/17 13:00 11/07/17 08:21 (Trandate) 100 mg Q12HR PO 11/04/17 21:00 11/07/17 19:41 (Mucomyst 20% Neb) 2 ml Q6HR NEB NEB 11/05/17 10:00 11/08/17 08:15 Ampicillin Sodium/ Sulbactam Sodium 3 gm/Sodium Chloride 100 ml @ 200 mls/hr Q6H IV 11/05/17 20:00 11/08/17 01:24 (Pepcid Inj) 20 mg Q12HR IV PUSH 11/06/17 21:00 11/07/17 19:41 (Henderson 7.5-325 Mg) 1 tab Q6H PRN PO 11/07/17 08:00 11/07/17 09:06 Last Impressions Chest X-Ray 11/07/17 0600 Signed Impressions: CONCLUSION: No appreciable change. Percutaneous Cholangiogram 11/01/17 0000 Signed Impressions: CONCLUSION: 1. Uncomplicated percutaneous cholecystostomy as above. Abdomen/Pelvis CT 11/01/17 0000 Signed Impressions: CONCLUSION: 1. Gallstones. There do appear to be areas of increased density within the com mon bile duct concerning for choledocholithiasis. 2. 4 mm nonobstructing left renal stone. 3. Sigmoid colon diverticula. 4. Bibasilar areas of consolidation or atelectasis being worse on the left wit h mild bilateral pleural effusions. Renal Ultrasound 10/31/17 Signed Impressions: CONCLUSION: 1. No hydronephrosis. 2. Increased cortical echogenicity consistent with medical renal disease. Head Magnetic Resonance Angiography 10/31/17 Signed Impressions: CONCLUSION: 1. Unremarkable MRA of the brain. Head CT 10/31/17 Signed Impressions: CONCLUSION: 1. Negative CT Head non contrast. 2. No evidence of acute infarct, hemorrhage, mass or edema. Brain MRI 10/31/17 Signed Impressions: CONCLUSION: 1. Senescent changes with minimal periventricular ischemic white matter demyel ination. 2. No acute abnormality. Specifically, no acute infarction, mass or hemorrhage . Gall Bladder Ultrasound 10/30/17 Signed Impressions: CONCLUSION: 1. Fatty infiltration of the liver. 2. Multiple stones in the gallbladder. No biliary tract obstruction. Extremity Arterial Study 10/28/17 Signed Impressions: CONCLUSION: 1. Abnormal ABIs, left greater than right. The left DAVID is significantly dimin ished at 0.14. Aorta w/Runoff CTA 10/28/17 Signed Impressions: Service Date/Time: Saturday, October 28, 2017 21:50 - CONCLUSION: 1. Acute occlusion of the left inflow with concern for short segment occlusion involving the distal right inflow. This raises concern for an embolic event. 2. Right lower extremity shows scattered disease throughout the common femoral artery, SFA and [id number] popliteal artery with three-vessel runoff to the foot. 3. Left lower extremity with reconstitution of the common femoral artery with diseased out flow and two vessel runoff to the foot as detailed above. 4. 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 5. Hepatic steatosis. 6. Cholelithiasis. Juanjose Mckeon Jr., MD Last Impressions Chest X-Ray 11/03/17 0600 Signed Impressions: CONCLUSION: Worsening parenchymal consolidation and small effusions at each lung base. Percutaneous Cholangiogram 11/01/17 Signed Impressions: CONCLUSION: 1. Uncomplicated percutaneous cholecystostomy as above. Abdomen/Pelvis CT 11/01/17 Signed Impressions: CONCLUSION: 1. Gallstones. There do appear to be areas of increased density within the com mon bile duct concerning for choledocholithiasis. 2. 4 mm nonobstructing left renal stone. 3. Sigmoid colon diverticula. 4. Bibasilar areas of consolidation or atelectasis being worse on the left wit h mild bilateral pleural effusions. Renal Ultrasound 10/31/17 Signed Impressions: CONCLUSION: 1. No hydronephrosis. 2. Increased cortical echogenicity consistent with medical renal disease. Head Magnetic Resonance Angiography 10/31/17 Signed Impressions: CONCLUSION: 1. Unremarkable MRA of the brain. Head CT 10/31/17 Signed Impressions: CONCLUSION: 1. Negative CT Head non contrast. 2. No evidence of acute infarct, hemorrhage, mass or edema. Brain MRI 10/31/17 Signed Impressions: CONCLUSION: 1. Senescent changes with minimal periventricular ischemic white matter demyel ination. 2. No acute abnormality. Specifically, no acute infarction, mass or hemorrhage . Gall Bladder Ultrasound 10/30/17 Signed Impressions: CONCLUSION: 1. Fatty infiltration of the liver. 2. Multiple stones in the gallbladder. No biliary tract obstruction. Extremity Arterial Study 10/28/17 Signed Impressions: CONCLUSION: 1. Abnormal ABIs, left greater than right. The left DAVID is significantly dimin ished at 0.14. Aorta w/Runoff CTA 10/28/17 Signed Impressions: Service Date/Time: Saturday, October 28, 2017 21:50 - CONCLUSION: 1. Acute occlusion of the left inflow with concern for short segment occlusion involving the distal right inflow. This raises concern for an embolic event. 2. Right lower extremity shows scattered disease throughout the common femoral artery, SFA and thalp-oku-idel popliteal artery with three-vessel runoff to the foot. 3. Left lower extremity with reconstitution of the common femoral artery with diseased out flow and two vessel runoff to the foot as detailed above. 4. 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 5. Hepatic steatosis. 6. Cholelithiasis. Juanjose Mckeon Jr., MD Last Impressions Percutaneous Cholangiogram 11/01/17 Signed Impressions: CONCLUSION: 1. Uncomplicated percutaneous cholecystostomy as above. Abdomen/Pelvis CT 11/01/17 Signed Impressions: CONCLUSION: 1. Gallstones. There do appear to be areas of increased density within the com mon bile duct concerning for choledocholithiasis. 2. 4 mm nonobstructing left renal stone. 3. Sigmoid colon diverticula. 4. Bibasilar areas of consolidation or atelectasis being worse on the left wit h mild bilateral pleural effusions. Renal Ultrasound 10/31/17 Signed Impressions: CONCLUSION: 1. No hydronephrosis. 2. Increased cortical echogenicity consistent with medical renal disease. Head Magnetic Resonance Angiography 10/31/17 Signed Impressions: CONCLUSION: 1. Unremarkable MRA of the brain. Head CT 10/31/17 Signed Impressions: CONCLUSION: 1. Negative CT Head non contrast. 2. No evidence of acute infarct, hemorrhage, mass or edema. Chest X-Ray 10/31/17 Signed Impressions: CONCLUSION: Satisfactory position of endotracheal and nasogastric tubes. Increasing airspace disease and bilateral effusions. Brain MRI 10/31/17 Signed Impressions: CONCLUSION: 1. Senescent changes with minimal periventricular ischemic white matter demyel ination. 2. No acute abnormality. Specifically, no acute infarction, mass or hemorrhage . Gall Bladder Ultrasound 10/30/17 Signed Impressions: CONCLUSION: 1. Fatty infiltration of the liver. 2. Multiple stones in the gallbladder. No biliary tract obstruction. Extremity Arterial Study 10/28/17 Signed Impressions: CONCLUSION: 1. Abnormal ABIs, left greater than right. The left DAVID is significantly dimin ished at 0.14. Aorta w/Runoff CTA 10/28/17 Signed Impressions: Service Date/Time: Saturday, October 28, 2017 21:50 - CONCLUSION: 1. Acute occlusion of the left inflow with concern for short segment occlusion involving the distal right inflow. This raises concern for an embolic event. 2. Right lower extremity shows scattered disease throughout the common femoral artery, SFA and [id number] popliteal artery with three-vessel runoff to the foot. 3. Left lower extremity with reconstitution of the common femoral artery with diseased out flow and two vessel runoff to the foot as detailed above. 4. 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 5. Hepatic steatosis. 6. Cholelithiasis. Juanjose Mckeon Jr., MD Last 24 hours Impressions Chest X-Ray 10/28/172010 Signed Impressions: Service Date/Time: Saturday, October 28, 2017 20:20 - CONCLUSION: Left lower lobe infiltrate. Mild cardiomegaly. Juanjose Mckeon Jr., MD Objective Remarks GENERAL: This is a well-developed undernourishedmale, laying in bed, alert and conversant. SKIN: Warm and dry. HEAD: Normocephalic. ENT: + scleral icterus. No injection or drainage. Pupils are now equal at 3mm, reactive. On NC. NECK: Supple, trachea midline. No JVD. CARDIOVASCULAR: Regular, rate in the 70s. No murmurs rubs or gallops. RESPIRATORY: Slightly tachypneic on simple mask with no accessory muscle use.. Breath sounds, diminished bibasilar. GASTROINTESTINAL: Abdomen soft, mildly distended, no tenderness to palpation. bowel sounds present. Cholecystostomy tube is in place draining dark brown fluid. No flank hematoma. : Peña in place with light yellow urine output MUSCULOSKELETAL: No cyanosis, 1+ bipedal edema. Bilateral DP with Doppler pulses. Discoloration of left fifth toe. 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 NEURO EXAM: Eyes open, makes eye contact. Oriented to person, place, year. Moves all extremities with no focal deficit A/P Assessment and Plan ASSESSMENT/PLAN: NEURO: Acute metabolic encephalopathy, improved -Lortab as needed for pain -10/31 CT of the head- negative -10/31MRIminimal periventricular ischemic white matter change no acute abnormality RESP: COPD exacerbation, resolved Left lower lobe pneumonia, resolved ARDS, resolved Respiratory distress, improved. Bilateral pleural effusions. -Emergently intubated and placed on mechanical ventilation 10/31/2017. Extubated 11/07/17. -L pigtail chest tube placed with initially 600 mL of serosanginous output. Respiratory status improved. pleural fluid culture negative,pathology pending. Chest tube removed 11/17 -U/s R pleural effusion on 11/15 - not amenable to drainage. Continue Symbicort 160/4.52 puffs inhaled every 12 hours Incentive spirometry every hour awake, Acapella. Continue Solumedrol to 40 mg IV q12 per pulmonology. Guaifenesin 600 mg p.o. twice daily Continue diuresis as per below. Dr. Johnson following CVS: Hemorrhagic shock, resolved. Secondary to R retroperitoneal hematoma Lactic acidemia Acute on chronic left limb ischemia, improved Paroxysmal atrial fibrillation HTN -CTA showed severe aorto-iliac occlusive disease with left iliac thrombosis. Dr. Lopez evaluated, may need ax-fem bypass at some point but not during this hospitalization. -No longer a candidate for anticoagulation, ASA/Plavix recommended when patient stabilized. Now off antiplatelets both due to large RP bleed and now planned ERCP. GI requests antiplatets on hold at least 5 days for ERCP. Consider CT abdomen and pelvis in a couple days to evaluate stability of the hematoma and consider initiation of ASA. -Significant calcifications and peripheral vascular disease -2D echo: EF 50%, no significant valvular lesions. left sided pleural effusion -HIT screen negative. CHARLEEN -negative -Continue Cardizem 240 mg p.o. daily GI Acute hepatic dysfunction Hyperbilirubinemia Transaminitis Acute Choledocholithiasis R retroperitoneal hematoma -Trend LFTs. Lipase elevated but he is asymptomatic now. Discussed with Dr. Coats and plan for ERCP Saturday. - gallbladder ultrasound showed multiple gallstones -Repeat CT abdomen/pelvis 11/01: c/w choledocholithiasis - Perc cholecystostomy tube placed 11/01 by IR. -Eventual cholecystectomy when stabilized. Dr. Martins has seen. -Acute hemorrhagic shock due to retroperitoneal hematoma on 11/11 while on heparin drip, transfusing as needed. CT with large R retroperitoneal hematoma. Manage medically, IR drain if e/o infection. Gen Surgery following. FEN/RENAL Acute kidney injury Acute metabolic acidosis Initial DEBORA on admission improve Continue diuresis with Lasix 40 mg IV q12. Nephrology has signed off. ID E COLI bacteremia/severe sepsis, resolved Enterococcus in the urine: possible colonization vs. UTI. Acute Choledocholithiasis/ Cholangitis Biliary fluid gram-negative rods Cholecystostomy placed 11/01. Completed abx course per ID: Unasyn discontinued 11/13. No leukocytosis. No fever. HEME: Acute blood loss anemia overlying anemia of chronic disease acute thrombocytopenia: Initially consumptive secondary to sepsis earlier during admission then consumptive secondary to acute blood loss. - HIT negative. CHARLEEN negative 10/30. Heparin on hold since 12: 30 11/11. Monitor coags, transfuse blood products as indicated. 3 units PRBC 11/11. 1 unit 11/12. 1 unit PRBCs ordered for hemoglobin 6.9 on 11/14. 1 unit PRBC 11/16 DVT GI prophylaxis -Vickey's and SCDs -Heparin infusion on hold due to bleeding. ACCESS: . PIV Placed emergent left IJ central venous line 11/11-11/16 Patient states he agrees to reintubation if needed. In the setting of pulseless arrest he would not want CPR, shocks, intubation, ACLS drugs. CODE STATUS is alternate code intubation only. Patient's sister states that he has designated her as healthcare surrogate. He has advanced directives. Palliative care following. Discussed with case management. He has been referred to [facility] and tentatively transfer when stabilized after ERCP. Patient and his sister were updated at bedside. PT/OT/OOB. Level 2 f/u. Niru Puckett MD Nov 17, 2017 22:05
[2017-11-18] VITALS (25 sets, daily range): BP systolic 128–167; BP diastolic 61–116; PULSE 65–95; RESP 14–21; TEMP 97.7–98.8; O2SAT 88–95
[2017-11-18] MEDS: CHLORHEXIDINE GLUCONATE 2 % 1 PACK (2 CLOTHS) TOP SCH (03:06)
[2017-11-18] MEDS: ALBUMIN 25% INJ 50 ML IV SCH (05:42)
[2017-11-18] MEDS: hydrALAZINE HCL 25 MG TAB PO SCH (05:42)
[2017-11-18] MEDS: CHLORHEXIDINE 0.12% (ORAL KIT) 15 ML CUP MT SCH ×2 (08:00→20:00)
[2017-11-18] MEDS: RESP: ALBUTEROL 2.5 MG/IPRATROPIUM 0.5 MG NEB (SCH) NEB ×5 (09:00→23:28)
[2017-11-18] MEDS ORDERED: RESP: ALBUTEROL 2.5 MG/IPRATROPIUM 0.5 MG NEB (PRN) NEB (09:15)
--- NOTE | 2017-11-18 09:31 | HHI.CCPN ---
Subjective Remarks/Hospital Course 67-year-old male presents to the emergency department via EMS for evaluation of shortness of breath and pain and numbness to the left leg. Patient believes that he is shortness of breath is related to the pain in his leg. He cannot feel his leg from his groin down. He denies any history of the same. He does report history of COPD. He denies any known fevers or chills. He denies chest pain. Patient received 1 L normal saline bolus via EMS. Patient denies any history of bleeding or blood clots. No recent surgery or travel. No hemoptysis. No history of DVT/PE. He denies leg edema. Patient states the pain is 10/10 to the left leg. No exacerbating or alleviating factors. Moderate severity. 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 The right inflow is heavily diseased as well. The patient was evaluated by vascular surgeon immigration judge and was immediately started on heparin drip. SUBJ 10/29: Remains critically ill, encephalopathy. 4 out of 4 bottles positive for GNR. I will change Rocephin to Zosyn renally dosed to cover for Pseudomonas also. Continue azithromycin. Creatinine still elevated but slightly improved. WBC count slightly increased 17.2 now with 24% bands. Source of GNR sepsis could be either UTI or pneumonia. Will consult ID as well. Remains on IV heparin for acute left limb ischemia 10/30: platelets falling >50% again today. Cr still rising, but could be ATN/ contrast nephropathy. blood cultures growing e. coli by PCR, full speciation to follow. urine culture pending. discussed case with Dr. Lopez, will stop heparin , start argatroban and send HIT/CHARLEEN. denies complaints for me, but does have objective tenderness on palpation, RUQ. 10/31: Emergently intubated today a.m. by Dr. Puckett for worsening mental status, encephalopathy and worsening respiratory failure. Prior to intubation Dr. Puckett ' exam revealed right upper quadrant tenderness. Ultrasound of the gallbladder yesterday showed gallstones. Overnight Argatroban was supratherapeutic and was held, platelet count also dropped to 30,000, HIT screen is pending. Postintubation bilateral pupils are reactive but unequal. Will repeat CT of the head, CT abdomen pelvis. BUN 49/Creat 2.7, leukocytosis persisting 11/01: no improvements. ct abd/pelvis with evidence of possible choledocholithiasis. perc doug tube planned for this AM. on esmolol infusion for afib RVR. fio2 increased to 70%. 11/02: Sodium bicarbonate infusion continued per nephrology in the setting of rhabdomyolysis serial creatinine kinase pending. Cholecystostomy drain placement 100 cc overnight. Continued thrombocytopenia, CBC, serotonin release assay pending. Plan for reinitiation of heparin awaiting GI consultation for possible invasive procedures prior to restarting heparin. Patient sinus rhythm with occasional PAC's. 11/03: No acute events overnight. Sodium bicarbonate infusion discontinued this a.m. had any improved this a.m.. Chest x-ray showed worsening consolidation, FiO2 requirements were increased to 65% during the night. CPAP trials on hold currently. Biliary drainage from cholecystostomy tube revealing gram-negative rods. The patient continues on antibiotics. Bilateral dorsalis pedis pulses monophasic signals by Doppler. Heparin infusion reinitiated. 11/04: Sodium bicarbonate infusion discontinued at 7 AM yesterday. Chest x-ray worsening consolidation versus pleural effusions. FiO2 slightly decreased to 60 %, ABG improving. Pending quantification via ultrasound of pleural fluid in am. Lasix 40mg x1 additional dose provided today . PPN discontinued discussed with Dr. Colon tube feeds initiated at [facility]. Dietary consult ordered. 11/05: Afebrile. Patient tolerating tube feeds advanced to goal rate of 55 cc/ hr. chest x-ray with slight improvement FiO2 decreased to 55% ABG pending. Initiation of CPAP trial to be attempted today. 11/06: Late entry note. Patient seen at 628am. Patient was started on CPAP and continues on CPAP greater than 10 hours. Patient following commands, currently on Precedex infusion. 11/07: Patient remained on CPAP trials for approximately 12 hours yesterday and discontinued because of agitation. CPAP trials reinitiated this a.m. Patient complaint of sore throat Lortab ordered. Patient continues on Precedex for ventilator weaning process. Chest x-ray still shows pulmonary edema, additional dose Lasix 401 dose given this a.m.. When infusion continued, monophasic Doppler signals bilateral dorsalis pedal pulses noted. 11/08: Afebrile . Patient successfully extubated yesterday. Remains on O2 at 4 L nasal cannula O2 saturation 94-95%. Patient continues on heparin infusion, she was noted to have 9 BMs last evening plan for serial H&H's concern for possible stool with occult blood. Repeat stool for occult blood. Plan for possible bedside thoracentesis ,if respiratory requirements increase, currently on O2 4 L via nasal cannula in no apparent distress. 11/11 Late entry, notified of re-consult at 17:[address] Johnson, saw patient and immediately placed L IJ CVL because patient had ripped out an IV and had insufficient peripheral IV access given clinical condition. RN states patient had Hgb 7.5 this morning. Trend was unusual with Hb 8.3--> 12.5 (without transfusion)-->7.5 and lab recommended repeat. Repeat was drawn and was 4.2. Meanwhile, while awaiting re-draw patient became hypotensive, MAP down in the 40s, and was given albumin 25 gram IV. Now he has received 1 unit PRBC and BP improved to 120s/60s. Getting 2 additional units of PRBC stat. Nurse states heparin has been off since 12:30. Sending stat coags/fibrinogen. Patient denies nausea or vomiting. He has some right-sided abdominal pain. There is dark brown drainage from cholecystostomy tube. He has not had a bowel movement in 48 hours. No obvious evidence of GI bleeding. CT abdomen and pelvis has been ordered as "urgent", now giving additional PRBC and then will obtain stat. Gastroenterology has been following and I have notified them of the anemia, though this does not appear to be GI source at this time. 11/12 CT last night showed large retroperitoneal hematoma. Transfused total of 3 units PRBC yest evening. Hgb now 8.3. Coags/fibrinogen in acceptable range this morning, heparin drip off. Patient states much less abdominal pain today. He is alert and oriented now. Coughing, O2 requirement up to 6 L NC, afebrile. 11/13 Had some hemoptysis yesterday. CT with bilateral pleural effusions/ LLL atelectasis vs infiltrate. Now on 8 L SM, tachypneic with more labored breathing today. Edematous, will diurese. He is alert and capacitated currently and agrees to L pleural drainage. Transfused 1 unit PRBC yesterday for Hgb 7.4. He still has some Right sided abdominal pain 11/14: Resting in bed on simple facemask. Hemoglobin 6.9 this morning. Patient denies any worsening shortness of breath or chest pain. 1 unit PRBCs being transfused. Left-sided pigtail catheter placed 11/13 drain 650 cc 11/15 Remains on simple mask, breathing a little labored. L pigtail catheter output is serous, 270 last 24 hours. Planned to tap R pleural effusion but when performed u/s the fluid had decreased significantly and did not appear amenable to drainage; continue diuresis. Labs are pending, nurse is about to draw them. Afebrile 11/16 Diuresing, creatinine stable. On NC. Afebrile. L Chest tube output 220. Hgb 7.6 from 8.8. Transfusing 1 unit PRBC. Noted lipase 827. Patient denies n/v /abdominal tenderness. He says he is feeling "much better" and denies abd pain. Subjective: 11/17 Chest tube removed yesterday without complication. Labored breathing when he got OOB overnight. He is tired of wearing simple mask so he wants to try HFNC. Depressed today, is worried his ERCP will get canceled. Wants to get out of the hospital. Case management working on transfer to [facility] when cleared following ERCP. 11/18 Patient is on high flow oxygen with 70% FIO2. For ERCP today. Objective Vital Signs Date Time Temp Pulse Resp B/P (MAP) Pulse Ox O2 Delivery O2 Flow Rate FiO2 11/18/17 08:59 93 High Flow Nasal Cannula 20.00 70 11/18/17 06:00 84 11/18/17 04:00 98.3 14 167/116 (133) Intake and Output 11/18/17 11/18/17 11/19/17 08:00 16:00 00:00 Intake Total 150 ml Output Total 1370 ml Balance -1220 ml Result Diagram: 11/17/17 0421 11/17/17 042 Imaging Last Impressions Chest X-Ray 11/16/17 0000 Signed Impressions: CONCLUSION: Removal of left chest tube without significant pneumothorax. Bilateral mostly b asilar airspace disease relatively stable. Chest CT 11/12/17 0000 Signed Impressions: CONCLUSION: 1. Bilateral pleural effusions left greater than right. Areas of infiltrate ve rsus atelectasis left lung base difficult to rule out a small superimposed pneu monia. 2. Dense coronary atherosclerotic disease. Abdomen/Pelvis CT 11/11/171852 Signed Impressions: CONCLUSION: 1. New complex fluid collection in the right-sided the abdomen which appears t o be extraperitoneal anterior to the right psoas muscle and displacing the righ t colon medially. Fluid collection measures up to 21 cm in length and 10.7 cm i n maximal diameter. Differential diagnosis includes hematoma or infection/absce ss. 2. Mild free fluid within the abdomen. 3. Mild anasarca. 4. Cholecystostomy tube in right upper quadrant without fluid directly around the gallbladder. 5. Small to moderate bilateral effusions with slight improvement in basilar mani ng consolidation since November 01. Chest Ultrasound 11/07/17 Signed Impressions: CONCLUSION: 1. Left-sided pleural effusion. Percutaneous Cholangiogram 11/01/17 Signed Impressions: CONCLUSION: 1. Uncomplicated percutaneous cholecystostomy as above. Renal Ultrasound 10/31/17 Signed Impressions: CONCLUSION: 1. No hydronephrosis. 2. Increased cortical echogenicity consistent with medical renal disease. Head Magnetic Resonance Angiography 10/31/17 Signed Impressions: CONCLUSION: 1. Unremarkable MRA of the brain. Head CT 10/31/17 Signed Impressions: CONCLUSION: 1. Negative CT Head non contrast. 2. No evidence of acute infarct, hemorrhage, mass or edema. Brain MRI 10/31/17 Signed Impressions: CONCLUSION: 1. Senescent changes with minimal periventricular ischemic white matter demyel ination. 2. No acute abnormality. Specifically, no acute infarction, mass or hemorrhage . Gall Bladder Ultrasound 10/30/17 Signed Impressions: CONCLUSION: 1. Fatty infiltration of the liver. 2. Multiple stones in the gallbladder. No biliary tract obstruction. Extremity Arterial Study 10/28/17 Signed Impressions: CONCLUSION: 1. Abnormal ABIs, left greater than right. The left DAVID is significantly dimin ished at 0.14. Aorta w/Runoff CTA 10/28/17 Signed Impressions: Service Date/Time: Saturday, October 28, 2017 21:50 - CONCLUSION: 1. Acute occlusion of the left inflow with concern for short segment occlusion involving the distal right inflow. This raises concern for an embolic event. 2. Right lower extremity shows scattered disease throughout the common femoral artery, SFA and [id number] popliteal artery with three-vessel runoff to the foot. 3. Left lower extremity with reconstitution of the common femoral artery with diseased out flow and two vessel runoff to the foot as detailed above. 4. 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 5. Hepatic steatosis. 6. Cholelithiasis. Juanjose Mckeon Jr., MD Objective Remarks GENERAL: This is a well-developed undernourishedmale, laying in bed, alert and conversant. SKIN: Warm and dry. HEAD: Normocephalic. ENT: + scleral icterus. No injection or drainage. Pupils are now equal at 3mm, reactive. On NC. NECK: Supple, trachea midline. No JVD. CARDIOVASCULAR: Regular, rate in the 70s. No murmurs rubs or gallops. RESPIRATORY: Slightly tachypneic on simple mask with no accessory muscle use.. Breath sounds, diminished bibasilar. GASTROINTESTINAL: Abdomen soft, mildly distended, no tenderness to palpation. bowel sounds present. Cholecystostomy tube is in place draining dark brown fluid. No flank hematoma. : Peña in place with light yellow urine output MUSCULOSKELETAL: No cyanosis, 1+ bipedal edema. Bilateral DP with Doppler pulses. Discoloration of left fifth toe. 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 NEURO EXAM: Eyes open, makes eye contact. Oriented to person, place, year. Moves all extremities with no focal deficit A/P Assessment and Plan ASSESSMENT/PLAN: NEURO: Acute metabolic encephalopathy, improved -Lortab as needed for pain -10/31 CT of the head- negative -10/31MRIminimal periventricular ischemic white matter change no acute abnormality RESP: COPD exacerbation, resolved Left lower lobe pneumonia, resolved ARDS, resolved Respiratory distress, improved. Bilateral pleural effusions. -Emergently intubated and placed on mechanical ventilation 10/31/2017. Extubated 11/07/17. Wean down oxygen as josiah keep sats >92% -L pigtail chest tube placed with initially 600 mL of serosanginous output. Respiratory status improved. pleural fluid culture negative,pathology pending. Chest tube removed 11/17 -U/s R pleural effusion on 11/15 - not amenable to drainage. Continue Symbicort 160/4.52 puffs inhaled every 12 hours Incentive spirometry every hour awake, Acapella. Continue Solumedrol to 40 mg IV q12 per pulmonology. Guaifenesin 600 mg p.o. twice daily Check CXR Dr. Johnson following CVS: Hemorrhagic shock, resolved. Secondary to R retroperitoneal hematoma Lactic acidemia Acute on chronic left limb ischemia, improved Paroxysmal atrial fibrillation HTN -CTA showed severe aorto-iliac occlusive disease with left iliac thrombosis. Dr. Lopez evaluated, may need ax-fem bypass at some point but not during this hospitalization. -No longer a candidate for anticoagulation, ASA/Plavix recommended when patient stabilized. Now off antiplatelets both due to large RP bleed and now planned ERCP. GI requests antiplatets on hold at least 5 days for ERCP. Consider CT abdomen and pelvis in a couple days to evaluate stability of the hematoma and consider initiation of ASA. -Significant calcifications and peripheral vascular disease -2D echo: EF 50%, no significant valvular lesions. left sided pleural effusion -HIT screen negative. CHARLEEN -negative -Continue Cardizem 240 mg p.o. daily, increase Hydralazine 50mg Q8, add Lopressor 50mg Q12 for BP control. GI Acute hepatic dysfunction Hyperbilirubinemia Transaminitis Acute Choledocholithiasis R retroperitoneal hematoma -Trend LFTs. Lipase elevated but he is asymptomatic now. For ERCP today - gallbladder ultrasound showed multiple gallstones -Retroperitoneal hematoma on 11/11 while on heparin drip, CT with large R retroperitoneal hematoma. Manage medically, - IR drain if e/o infection. Gen Surgery following. -Repeat CT abdomen/pelvis 11/01: c/w choledocholithiasis - Perc cholecystostomy tube placed 11/01 by IR. -Eventual cholecystectomy when stabilized. Dr. Martins has seen. -Repeat CT abd/pelvis to follow up on retroperitoneal hematoma FEN/RENAL Acute kidney injury- improving Monitor renal function, I/O's, electrolytes replacement as needed Continue diuresis with Lasix 40 mg IV q12. Nephrology has signed off. ID E COLI bacteremia/severe sepsis, resolved Enterococcus in the urine: possible colonization vs. UTI. Acute Choledocholithiasis/ Cholangitis Biliary fluid gram-negative rods Cholecystostomy placed 11/01. Completed abx course per ID: Unasyn discontinued 11/13. Monitor for signs of infections ( Fever, WBC) HEME: Acute blood loss anemia overlying anemia of chronic disease acute thrombocytopenia: Initially consumptive secondary to sepsis earlier during admission then consumptive secondary to acute blood loss. - HIT negative. CHARLEEN negative 10/30. Heparin on hold since 11/11. Monitor coags, transfuse blood products as indicated. 3 units PRBC 11/11. 1 unit 11/12. 1 unit PRBCs ordered for hemoglobin 6.9 on 11/14. 1 unit PRBC 11/16 DVT GI prophylaxis -Vickey's and SCDs -Heparin infusion on hold due to bleeding. ACCESS: . PIV Placed emergent left IJ central venous line 11/11-11/[address] Puckett: Patient states he agrees to reintubation if needed. In the setting of pulseless arrest he would not want CPR, shocks, intubation, ACLS drugs. CODE STATUS is alternate code intubation only. Patient's sister states that he has designated her as healthcare surrogate. He has advanced directives. Palliative care following. Check labs today PT/OT/OOB. Level 3 f/u. Vandana Frazier MD Nov 18, 2017 09:31
[2017-11-18] MEDS: NYSTATIN SUSP 500,000 U/5 ML CUP SWISH-SWAL SCH ×4 (09:41→20:30)
[2017-11-18] MEDS: DILTIAZEM-CD 240 MG CAP ER PO SCH (09:42)
[2017-11-18] MEDS: FUROSEMIDE 40 MG/4 ML VIAL IV PUSH SCH ×2 (09:42→20:29)
[2017-11-18] MEDS: FAMOTIDINE 20 MG TAB PO SCH ×2 (09:42→20:30)
[2017-11-18] MEDS: guaiFENesin E.R. 600 MG TAB PO SCH ×2 (09:42→20:29)
[2017-11-18] MEDS: SODIUM CHLORIDE 0.9% FLUSH 10 ML FLUSH IV FLUSH SCH ×2 (09:43→20:29)
[2017-11-18] MEDS: BUDESONIDE-FORMOTEROL 160/4.5 MCG INHALER INH SCH ×2 (09:43→20:29)
--- NOTE | 2017-11-18 10:27 | HHI.GIFU ---
Subjective Remarks Pt resting in bed on high flow NC Very frustrated about ERCP being cancelled today He denies any BM States his belly feels upset, thinks its from being angry Denies nausea, vomiting (Annika Tenorio) Objective Vitals I&O Vital Signs Date Time Temp Pulse Resp B/P (MAP) Pulse Ox O2 Delivery O2 Flow Rate FiO2 11/18/17 08:59 93 High Flow Nasal Cannula 20.00 70 11/18/17 06:00 84 11/18/17 04:00 95 11/18/17 04:00 98.3 87 14 167/116 (133) 92 11/18/17 03:30 91 15 156/103 (120) 94 11/18/17 03:00 88 14 163/73 (103) 95 11/18/17 02:30 83 14 141/67 (91) 88 11/18/17 02:00 90 17 156/75 (102) 92 11/18/17 02:00 90 11/18/17 01:30 82 15 153/72 (99) 95 11/18/17 01:00 91 16 156/72 (100) 95 11/18/17 00:00 86 11/18/17 00:00 98.5 84 17 165/70 (101) 92 11/17/17 23:31 94 20 157/86 (109) 91 11/17/17 23:00 85 16 137/72 (93) 93 11/17/17 22:30 84 17 132/65 (87) 92 11/17/17 22:00 85 18 132/62 (85) 94 11/17/17 22:00 85 11/17/17 21:30 86 18 137/74 (95) 91 11/17/17 21:00 90 18 140/66 (90) 94 11/17/17 20:42 94 High Flow Nasal Cannula 20.00 70 11/17/17 20:00 98.3 86 27 129/67 (87) 92 11/17/17 20:00 86 11/17/17 19:30 82 20 130/68 (88) 90 11/17/17 19:00 94 Nasal Cannula 11/17/17 19:00 82 21 138/74 (95) 93 11/17/17 18:00 94 11/17/17 16:00 98.8 83 19 147/80 (102) 92 11/17/17 16:00 83 11/17/17 15:40 93 High Flow Nasal Cannula 20.00 70 11/17/17 14:00 88 11/17/17 12:00 98.3 84 23 135/67 (89) 97 11/17/17 12:00 84 I/O 11/17/17 11/17/17 11/17/17 11/18/17 11/18/17 11/18/17 07:00 15:00 23:00 07:00 15:00 23:00 Intake Total 300 ml 50 ml 850 ml 150 ml Output Total 1320 ml 1410 ml 1370 ml Balance -1020 ml 50 ml -560 ml -1220 ml Intake Oral 300 ml 750 ml 100 ml IV Total 50 ml 100 ml 50 ml Output Urine Total 1250 ml 1300 ml 1300 ml Drainage Total 70 ml 110 ml 70 ml # Bowel Movements 0 0 0 Laboratory Date/Time Source Procedure Growth Status 10/30/17 20:38 Blood Peripheral Aerobic Blood Culture - Final NO GROWTH IN 5 DAYS Complete 10/30/17 20:38 Blood Peripheral Anaerobic Blood Culture - Final NO GROWTH IN 5 DAYS Complete 11/13/17 12:00 Fluid Pleural Fluid Gram Stain - Final Complete 11/13/17 12:00 Fluid Pleural Fluid Body Fluid Culture - Final NO GROWTH IN 72 HRS.--AEROBICALLY OR ... Complete 11/04/17 05:08 Stool Stool Stool Occult Blood (NUBIA) - Final HEMOCCULT POSITIVE Complete 10/31/17 10:40 Sputum Endotracheal Gram Stain - Final Complete 10/31/17 10:40 Sputum Endotracheal Sputum Culture - Final HEAVY GROWTH NORMAL RESPIRATORY TERRELL Complete 10/29/17 00:00 Urine Catheterized Urine Urine Culture - Final Enterococcus Faecalis Complete Imaging Last Impressions Chest X-Ray 11/16/17 0000 Signed Impressions: CONCLUSION: Removal of left chest tube without significant pneumothorax. Bilateral mostly b asilar airspace disease relatively stable. Chest CT 11/12/17 0000 Signed Impressions: CONCLUSION: 1. Bilateral pleural effusions left greater than right. Areas of infiltrate ve rsus atelectasis left lung base difficult to rule out a small superimposed pneu monia. 2. Dense coronary atherosclerotic disease. Abdomen/Pelvis CT 11/11/17 1853 Signed Impressions: CONCLUSION: 1. New complex fluid collection in the right-sided the abdomen which appears t o be extraperitoneal anterior to the right psoas muscle and displacing the righ t colon medially. Fluid collection measures up to 21 cm in length and 10.7 cm i n maximal diameter. Differential diagnosis includes hematoma or infection/absce ss. 2. Mild free fluid within the abdomen. 3. Mild anasarca. 4. Cholecystostomy tube in right upper quadrant without fluid directly around the gallbladder. 5. Small to moderate bilateral effusions with slight improvement in basilar mani ng consolidation since November 01. Chest Ultrasound 11/07/17 Signed Impressions: CONCLUSION: 1. Left-sided pleural effusion. Percutaneous Cholangiogram 11/01/17 Signed Impressions: CONCLUSION: 1. Uncomplicated percutaneous cholecystostomy as above. Renal Ultrasound 10/31/17 Signed Impressions: CONCLUSION: 1. No hydronephrosis. 2. Increased cortical echogenicity consistent with medical renal disease. Head Magnetic Resonance Angiography 10/31/17 Signed Impressions: CONCLUSION: 1. Unremarkable MRA of the brain. Head CT 10/31/17 Signed Impressions: CONCLUSION: 1. Negative CT Head non contrast. 2. No evidence of acute infarct, hemorrhage, mass or edema. Brain MRI 10/31/17 Signed Impressions: CONCLUSION: 1. Senescent changes with minimal periventricular ischemic white matter demyel ination. 2. No acute abnormality. Specifically, no acute infarction, mass or hemorrhage . Gall Bladder Ultrasound 10/30/17 Signed Impressions: CONCLUSION: 1. Fatty infiltration of the liver. 2. Multiple stones in the gallbladder. No biliary tract obstruction. Extremity Arterial Study 10/28/17 Signed Impressions: CONCLUSION: 1. Abnormal ABIs, left greater than right. The left DAVID is significantly dimin ished at 0.14. Aorta w/Runoff CTA 10/28/17 Signed Impressions: Service Date/Time: Saturday, October 28, 2017 21:50 - CONCLUSION: 1. Acute occlusion of the left inflow with concern for short segment occlusion involving the distal right inflow. This raises concern for an embolic event. 2. Right lower extremity shows scattered disease throughout the common femoral artery, SFA and [id number] popliteal artery with three-vessel runoff to the foot. 3. Left lower extremity with reconstitution of the common femoral artery with diseased out flow and two vessel runoff to the foot as detailed above. 4. 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 5. Hepatic steatosis. 6. Cholelithiasis. Juanjose Mckeon Jr., MD Physical Exam HEENT: Normocephalic; atraumatic CHEST - Tachypneic, CARDIAC: RRR ABDOMEN: Distended, semi-firm, nontender, bowel sounds active. PTBD with approx 20 cc of dark bile colored drainage SKIN: Normal; no rash; no jaundice. 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 S/P IR for percutaneous cholecystostomy drain on 11/01 - Culture with heavy growth of gram positive and gram negative enteric terrell, no further work up Pt on Unasyn - Elevated LFTs- likely secondary to obstruction from above but liver work up pending Iron-145 TIBC-214 %sat-67.7 Ferritin-248 AFP-6.9 Hepatitis panel negative [place], AMA, ASMA negative. AAT-215 Ceruloplasmin-24 - Anemia, normocytic- with Hemoccult positive stools- no obvious GIB - Cold left leg- Heparin gtt - now discontinued (11/18) Pt was initially planned for ERCP today, however, pt is on high flow NC and is too unstable for endoscopic procedures. No repeat labs from today but H/H has been stable over the past few days, no reports of GIB Plan Restart diet Monitor output from percutaneous biliary drain ERCP when clinically stable Our service will sign off, please reconsult when pt is stable for ERCP Pt has been seen and examined by myself and Dr. Coats and this note is written on his behalf (Annika Tenorio) Physician Comments Appeared more SOB on high flow O2. Will continue supportive care and ERCP when more stable. No emergency in doing it while at the ICU care, Biliary drain in place. Will follow up with you. (James Coats MD) Problem Qualifiers (1) Sepsis: Qualified Codes: A41.9 - Sepsis, unspecified organism Annika Tenorio Nov 18, 2017 10:27 James Coats MD Nov 18, 2017 11:48
--- NOTE | 2017-11-18 10:57 | RADRPT ---
EXAM DATE: 11/18/2017 10:45 AM EDT AGE/SEX: 67 years / Male INDICATIONS: Short of breath. CLINICAL DATA: This is the patient's subsequent encounter. Patient reports that signs and symptoms h ave been present for 2 weeks and indicates a pain score of Nonresponsive. MEDICAL/SURGICAL HISTORY: . Chronic obstructive pulmonary disease. Left chest tube. None. COMPARISON: [facility] [place], 11/16/2017. . FINDINGS: 2 portable frontal views of the chest show some improvement in the basilar intra-alveolar infiltrates . Small effusions remain as well. Heart is mildly enlarged. No pneumothorax. Bony structures are unre markable. CONCLUSION: Some improvement in the bibasilar infiltrates. Electronically signed by: Juanjose Mckeon MD 11/18/2017 10:56 AM EDT
[2017-11-18] MEDS: METOPROLOL TARTRATE 50 MG TAB PO SCH ×2 (11:21→20:29)
[2017-11-18] MEDS: hydrALAZINE HCL 50 MG TAB PO SCH ×3 (11:21→21:55)
[2017-11-18 13:11] LABS: AUTOMATED NEUTROPHIL # 9.8 TH/MM3 (1.8-7.7); BASOPHIL % 0.1 % (0.0-2.0); HEMATOCRIT 25.7 % (39.0-51.0); HEMOGLOBIN 8.6 GM/DL (13.0-17.0); LYMPH % 1.4 % (9.0-44.0); LYMPHOCYTE # 0.1 TH/MM3 (1.0-4.8); MEAN CELL VOLUME 92.9 FL (80.0-100.0); MEAN CORPUSCULAR HEMOGLOBIN 31.2 PG (27.0-34.0); MEAN CORPUSCULAR HGB CONC 33.6 % (32.0-36.0); MEAN PLATELET VOLUME 10.7 FL (7.0-11.0); MONO % 1.6 % (0.0-8.0); MONOCYTE # 0.2 TH/MM3 (0-0.9); NEUT % 96.9 % (16.0-70.0); PLATELET COUNT 80 TH/MM3 (150-450); RED BLOOD COUNT 2.77 MIL/MM3 (4.50-5.90); RED CELL DISTRIBUTION WIDTH 18.4 % (11.6-17.2); WHITE BLOOD COUNT 10.1 TH/MM3 (4.0-11.0)
[2017-11-18] MEDS: methylPREDNISolone SOD SUCC 40 MG/1 ML VIAL IV PUSH SCH (13:18)
[2017-11-18 13:28] LABS: ALBUMIN 3.5 GM/DL (3.4-5.0); AST (GOT) 42 U/L (15-37); BICARBONATE 28.1 MEQ/L (21.0-32.0); BLOOD UREA NITROGEN 32 MG/DL (7-18); CALCIUM 7.9 MG/DL (8.5-10.1); CHLORIDE 107 MEQ/L (98-107); GLOMERULAR FILTRATION RATE 84 ML/MIN (>89); GLUCOSE,RANDOM 92 MG/DL (74-106); MAGNESIUM 2.2 MG/DL (1.5-2.5); SODIUM (NA) 146 MEQ/L (136-145)
[2017-11-18 13:29] LABS: ALT (GPT) 101 U/L (12-78); PHOSPHORUS 2.2 MG/DL (2.5-4.9)
[2017-11-18 13:36] LABS: ALKALINE PHOSPHATASE 56 U/L (45-117); TOTAL BILIRUBIN ADULT 7.8 MG/DL (0.2-1.0); TOTAL PROTEIN 5.7 GM/DL (6.4-8.2)
[2017-11-18 13:55] LABS: BANDS 11 % (0-6); LYMPHOCYTES 2 % (9-44); MONOCYTES 1 % (0-8); NEUTROPHIL # MANUAL DIFF 9.8 TH/MM3 (1.8-7.7); POLYS (SEG NEUTROPHILS) 86 % (16-70)
[2017-11-18 13:56] LABS: ACANTHOCYTES OCC (NORMAL)
--- NOTE | 2017-11-18 14:46 | EKG ---
Date Performed: 11/17/2017 Time Performed: 11:57:46 PTAGE: 67 years EKG: Atrial fibrillation Right axis deviation Inferior infarct - age undetermined Consider lead reversal between I and aVL Anteroseptal T wave changes are nonspecific Abnormal ECG PREVIOUS TRACING 10/28/17 Consider inferior infarct - age indeterminate DOCTOR: Miguel Pizano Interpretating Date/Time 11/18/2017 14:44:33
--- NOTE | 2017-11-18 14:50 | HHI.PR ---
cc: Richi Martins MD Subjective Subjective Notes Resting in bed XR setting up for CXR Patient reports no pain Objective Vitals/I&O Vital Signs Date Time Temp Pulse Resp B/P (MAP) Pulse Ox O2 Delivery O2 Flow Rate FiO2 11/18/17 12:00 81 11/18/17 12:00 98.8 20 152/75 (100) 90 11/18/17 08:59 High Flow Nasal Cannula 20.00 70 Labs Laboratory Tests Test 11/18/17 12:19 White Blood Count 10.1 Red Blood Count 2.77 Hemoglobin 8.6 Hematocrit 25.7 Mean Corpuscular Volume 92.9 Mean Corpuscular Hemoglobin 31.2 Mean Corpuscular Hemoglobin Concent 33.6 Red Cell Distribution Width 18.4 Platelet Count 80 Mean Platelet Volume 10.7 Neutrophils (%) (Auto) 96.9 Lymphocytes (%) (Auto) 1.4 Monocytes (%) (Auto) 1.6 Eosinophils (%) (Auto) 0.0 Basophils (%) (Auto) 0.1 Neutrophils # (Auto) 9.8 Lymphocytes # (Auto) 0.1 Monocytes # (Auto) 0.2 Eosinophils # (Auto) 0.0 Basophils # (Auto) 0.0 CBC Comment AUTO DIFF Differential Total Cells Counted 100 Neutrophils % (Manual) 86 Band Neutrophils % 11 Lymphocytes % 2 Monocytes % 1 Neutrophils # (Manual) 9.8 Differential Comment FINAL DIFF MANUAL Platelet Estimate LOW Platelet Morphology Comment NORMAL Acanthocytes OCC Blood Urea Nitrogen 32 Creatinine 0.90 Random Glucose 92 Total Protein 5.7 Albumin 3.5 Calcium Level 7.9 Phosphorus Level 2.2 Magnesium Level 2.2 Alkaline Phosphatase 56 Aspartate Amino Transf (AST/SGOT) 42 Alanine Aminotransferase (ALT/SGPT) 101 Total Bilirubin 7.8 Sodium Level 146 Potassium Level 3.3 Chloride Level 107 Carbon Dioxide Level 28.1 Anion Gap 11 Estimat Glomerular Filtration Rate 84 Date/Time Source Procedure Growth Status 10/30/17 20:38 Blood Peripheral Aerobic Blood Culture - Final NO GROWTH IN 5 DAYS Complete 10/30/17 20:38 Blood Peripheral Anaerobic Blood Culture - Final NO GROWTH IN 5 DAYS Complete 11/13/17 12:00 Fluid Pleural Fluid Gram Stain - Final Complete 11/13/17 12:00 Fluid Pleural Fluid Body Fluid Culture - Final NO GROWTH IN 72 HRS.--AEROBICALLY OR ... Complete 11/04/17 05:08 Stool Stool Stool Occult Blood (NUBIA) - Final HEMOCCULT POSITIVE Complete 10/31/17 10:40 Sputum Endotracheal Gram Stain - Final Complete 10/31/17 10:40 Sputum Endotracheal Sputum Culture - Final HEAVY GROWTH NORMAL RESPIRATORY KAREEM Complete 10/29/17 00:00 Urine Catheterized Urine Urine Culture - Final Enterococcus Faecalis Complete Cardiovascular: Regular Lungs: Clear Abdomen: Non-distended, Non-tender Narrative Exam LEFT chest tube in place Moderate generalized edema A/P Assessment and Plan 67 year old male with multiple medical problems on heparin drip with retroperitoneal hematoma -Diet as tolerated -Hmg 8.6---stable -Continue to hold anticoagulation -Continue abdominal exams; exam continues to be benign -Continue non operative treatment Attending Statement The exam, history, and the medical decision-making described in the above note were completed with the assistance of the mid-level provider. I reviewed and agree with the findings presented. I attest that I had a [id number] encounter with the patient on the same day, and personally performed and documented my assessment and findings in the medical record. large hematoma, no signs of infection continue non-operative management will follow Silvana Whalen/First Alisha MACK Nov 18, 2017 14:50 Richi Martins MD Nov 19, 2017 15:17
--- NOTE | 2017-11-18 14:55 | HHI.HCSW ---
Hatchery Supervisor Visit Cognitive Functioning Mr. Bates is currently lying in bed, sister at bedside. He appears comfortable in no apparent distress. No questions or concerns at this time. . Significant Family/Friend Sister at bedside. Previously met with her and Mr. Krishnamurthy's to provide information on community resources as they have been the caregiver for their elderly father. They are thankful of information and assistance from palliative care. Denies any further questions or concerns at this time. . Follow Up Visit Palliative care will continue to follow throughout hospitalization. Kimber Mckeon, JOB PLACEMENT SPECIALIST Nov 18, 2017 14:55
[2017-11-18] MEDS: POTASSIUM CHLOR 20 MEQ PREMIX 100 ML IV PRN ×2 (16:20→18:27)
--- NOTE | 2017-11-18 17:19 | HHI.HCPN ---
Reason for visit a. To assist with evaluation and management of symptoms including: Shortness of breath, pain, debility. b. To assist medical decision maker(s) with: better understanding of current medical conditions; weighing benefits/burdens of medical treatment options; making medical treatment decisions. . Subjective/Interval History Pt seen today for follow up SOB and to provide medical update/support to pt and decision maker. Dual visit with MARTINA Davis. HH stable. ERCP planned today but was cancelled d/t o2 requirements. Pt now on high flow o2 via nasal cannula. CXR showed some improvement bibasilar infiltrates. Chest tube discontinued . 11/15 US showed right pleural effusion not amenable to drainage. Pt denies SOB but appears SOB to conversation, observed during conversation o2 sats dropped to 88. Denies GI complaints. Denies abd pain but was tender on palpation of right quadrant. No issues with appetite, he is eating crackers. Complains of occasional cough. He voiced disappointment that ERCP could not be done today and did not understand why this was cancelled; discussed increased o2 requirements with him and that ERCP not deemed urgent by GI at this time b/c he has cholecystostomy. Continues to have high o2 requirements and remains high risk for procedures and risk for further decline and complication, including intubation. He expressed desire to avoid intubation if possible. Offered to update his sister, he indicates he has been communicating with her but is amenable to further discussion with her. Attempted to contact sister Jennifer. She did not answer, left message offering courtesy update and palliative contact information. Advance Directives Living Will: Copy in medical record Health Care Surrogate: Copy in medical record Advance Directive Specifics Date completed: 10/27/2012. . Health Care Surrogate(s): Patient electing sister Jennifer Galeas as healthcare surrogate decision maker. No alternate surrogates. . Documented care wishes: Living will with standard verbiage as it pertains to terminal condition, end- stage condition or persistent vegetative state. . Objective Vital Signs Date Time Temp Pulse Resp B/P (MAP) Pulse Ox O2 Delivery O2 Flow Rate FiO2 11/18/17 12:00 81 11/18/17 12:00 98.8 74 20 152/75 (100) 90 11/18/17 10:00 87 11/18/17 08:59 93 High Flow Nasal Cannula 20.00 70 11/18/17 08:00 98.4 91 18 165/83 (110) 94 11/18/17 08:00 91 11/18/17 07:00 92 Nasal Cannula 11/18/17 06:00 84 11/18/17 04:00 95 11/18/17 04:00 98.3 87 14 167/116 (133) 92 11/18/17 03:30 91 15 156/103 (120) 94 11/18/17 03:00 88 14 163/73 (103) 95 11/18/17 02:30 83 14 141/67 (91) 88 11/18/17 02:00 90 17 156/75 (102) 92 11/18/17 02:00 90 11/18/17 01:30 82 15 153/72 (99) 95 11/18/17 01:00 91 16 156/72 (100) 95 11/18/17 00:00 86 11/18/17 00:00 98.5 84 17 165/70 (101) 92 11/17/17 23:31 94 20 157/86 (109) 91 11/17/17 23:00 85 16 137/72 (93) 93 11/17/17 22:30 84 17 132/65 (87) 92 11/17/17 22:00 85 18 132/62 (85) 94 11/17/17 22:00 85 11/17/17 21:30 86 18 137/74 (95) 91 11/17/17 21:00 90 18 140/66 (90) 94 11/17/17 20:42 94 High Flow Nasal Cannula 20.00 70 11/17/17 20:00 98.3 86 27 129/67 (87) 92 11/17/17 20:00 86 11/17/17 19:30 82 20 130/68 (88) 90 11/17/17 19:00 94 Nasal Cannula 11/17/17 19:00 82 21 138/74 (95) 93 11/17/17 18:00 94 Intake & Output 11/18/17 11/18/17 07:00 19:00 Intake Total 150 ml Output Total 1370 ml Balance -1220 ml Intake Oral 100 ml IV Total 50 ml Output Urine Total 1300 ml Drainage Total 70 ml # Bowel Movements 0 Physical Exam CONSTITUTIONAL/GENERAL: This is an adequately nourished patient in moderate distress secondary to increased work of breathing. Ill looking. TUBES/LINES/DRAINS: HFNC, PIV's, biliary drain, Peña catheter, bilateral SCDs. SKIN: Dusky No jaundice, rashes, or lesions. Large areas of ecchymoses on bilateral upper extremities, right forearm and hand more than left. HEAD: Atraumatic. Normocephalic. EYES: PERRL No scleral icterus. CARDIOVASCULAR: irr HR. Warm bilateral extremities, no cyanosis noted. RESPIRATORY/CHEST: SOB on conversation. Rhonchi noted. Tachypneic. GASTROINTESTINAL: Abdomen round, obese. TTP right quadrant.Bowel sounds present. GENITOURINARY: Peña catheter in place, orange urine MUSCULOSKELETAL: Extremities without clubbing, cyanosis. +2 pitting edema BLE NEUROLOGICAL: AOx3 . Diagnostic Tests Laboratory Laboratory Tests Test 11/15/17 17:00 11/16/17 03:30 11/17/17 04:21 11/18/17 12:19 Lactic Acid Level 3.2 mmol/L (0.4-2.0) White Blood Count 9.4 TH/MM3 (4.0-11.0) 9.9 TH/MM3 (4.0-11.0) 10.1 TH/MM3 (4.0-11.0) Red Blood Count 2.43 MIL/MM3 (4.50-5.90) 2.54 MIL/MM3 (4.50-5.90) 2.77 MIL/MM3 (4.50-5.90) Hemoglobin 7.6 GM/DL (13.0-17.0) 8.1 GM/DL (13.0-17.0) 8.6 GM/DL (13.0-17.0) Hematocrit 22.0 % (39.0-51.0) 23.5 % (39.0-51.0) 25.7 % (39.0-51.0) Mean Corpuscular Volume 90.3 FL (80.0-100.0) 92.2 FL (80.0-100.0) 92.9 FL (80.0-100.0) Mean Corpuscular Hemoglobin 31.4 PG (27.0-34.0) 31.8 PG (27.0-34.0) 31.2 PG (27.0-34.0) Mean Corpuscular Hemoglobin Concent 34.8 % (32.0-36.0) 34.5 % (32.0-36.0) 33.6 % (32.0-36.0) Red Cell Distribution Width 17.5 % (11.6-17.2) 17.8 % (11.6-17.2) 18.4 % (11.6-17.2) Platelet Count 78 TH/MM3 (150-450) 82 TH/MM3 (150-450) 80 TH/MM3 (150-450) Mean Platelet Volume 10.1 FL (7.0-11.0) 10.7 FL (7.0-11.0) 10.7 FL (7.0-11.0) Neutrophils (%) (Auto) 96.1 % (16.0-70.0) 96.9 % (16.0-70.0) 96.9 % (16.0-70.0) Lymphocytes (%) (Auto) 1.3 % (9.0-44.0) 0.8 % (9.0-44.0) 1.4 % (9.0-44.0) Monocytes (%) (Auto) 2.3 % (0.0-8.0) 2.1 % (0.0-8.0) 1.6 % (0.0-8.0) Eosinophils (%) (Auto) 0.0 % (0.0-4.0) 0.0 % (0.0-4.0) 0.0 % (0.0-4.0) Basophils (%) (Auto) 0.3 % (0.0-2.0) 0.2 % (0.0-2.0) 0.1 % (0.0-2.0) Neutrophils # (Auto) 9.0 TH/MM3 (1.8-7.7) 9.6 TH/MM3 (1.8-7.7) 9.8 TH/MM3 (1.8-7.7) Lymphocytes # (Auto) 0.1 TH/MM3 (1.0-4.8) 0.1 TH/MM3 (1.0-4.8) 0.1 TH/MM3 (1.0-4.8) Monocytes # (Auto) 0.2 TH/MM3 (0-0.9) 0.2 TH/MM3 (0-0.9) 0.2 TH/MM3 (0-0.9) Eosinophils # (Auto) 0.0 TH/MM3 (0-0.4) 0.0 TH/MM3 (0-0.4) 0.0 TH/MM3 (0-0.4) Basophils # (Auto) 0.0 TH/MM3 (0-0.2) 0.0 TH/MM3 (0-0.2) 0.0 TH/MM3 (0-0.2) CBC Comment AUTO DIFF AUTO DIFF AUTO DIFF Differential Comment AUTO DIFF CONFIRMED AUTO DIFF CONFIRMED FINAL DIFF MANUAL Platelet Estimate LOW (NORMAL) LOW (NORMAL) LOW (NORMAL) Platelet Morphology Comment NORMAL (NORMAL) NORMAL (NORMAL) NORMAL (NORMAL) Basophilic Stippling FAINT (NORMAL) FAINT (NORMAL) Blood Urea Nitrogen 38 MG/DL (7-18) 36 MG/DL (7-18) 32 MG/DL (7-18) Creatinine 1.03 MG/DL (0.60-1.30) 1.00 MG/DL (0.60-1.30) 0.90 MG/DL (0.60-1.30) Random Glucose 112 MG/DL (74-106) 124 MG/DL (74-106) 92 MG/DL (74-106) Total Protein 5.3 GM/DL (6.4-8.2) 5.4 GM/DL (6.4-8.2) 5.7 GM/DL (6.4-8.2) Albumin 3.5 GM/DL (3.4-5.0) 3.4 GM/DL (3.4-5.0) 3.5 GM/DL (3.4-5.0) Calcium Level 8.1 MG/DL (8.5-10.1) 8.1 MG/DL (8.5-10.1) 7.9 MG/DL (8.5-10.1) Magnesium Level 2.5 MG/DL (1.5-2.5) 2.2 MG/DL (1.5-2.5) Alkaline Phosphatase 45 U/L (45-117) 52 U/L (45-117) 56 U/L (45-117) Aspartate Amino Transf (AST/SGOT) 42 U/L (15-37) 39 U/L (15-37) 42 U/L (15-37) Alanine Aminotransferase (ALT/SGPT) 77 U/L (12-78) 92 U/L (12-78) 101 U/L (12-78) Total Bilirubin 5.2 MG/DL (0.2-1.0) 5.3 MG/DL (0.2-1.0) 7.8 MG/DL (0.2-1.0) Sodium Level 148 MEQ/L (136-145) 147 MEQ/L (136-145) 146 MEQ/L (136-145) Potassium Level 3.7 MEQ/L (3.5-5.1) 3.4 MEQ/L (3.5-5.1) 3.3 MEQ/L (3.5-5.1) Chloride Level 110 MEQ/L (98-107) 109 MEQ/L (98-107) 107 MEQ/L (98-107) Carbon Dioxide Level 27.1 MEQ/L (21.0-32.0) 29.4 MEQ/L (21.0-32.0) 28.1 MEQ/L (21.0-32.0) Anion Gap 11 MEQ/L (5-15) 9 MEQ/L (5-15) 11 MEQ/L (5-15) Estimat Glomerular Filtration Rate 72 ML/MIN (>89) 74 ML/MIN (>89) 84 ML/MIN (>89) Lipase 827 U/L (73-393) 542 U/L (73-393) Stomatocytes 1+ (NORMAL) Differential Total Cells Counted 100 Neutrophils % (Manual) 86 % (16-70) Band Neutrophils % 11 % (0-6) Lymphocytes % 2 % (9-44) Monocytes % 1 % (0-8) Neutrophils # (Manual) 9.8 TH/MM3 (1.8-7.7) Acanthocytes OCC (NORMAL) Phosphorus Level 2.2 MG/DL (2.5-4.9) Result Diagram: 11/18/17 1219 11/18/17 1219 Procedures * 10/31/17: Endotracheal intubation * 11/01/17: Biliary drain placement * 11/07/17: Extubation * 11/13/17: Left-sided pigtail chest tube * 11/17/17: chest tube removed . Assessment and Plan Disease Oriented Problem List: (1) COPD (chronic obstructive pulmonary disease) (2) Pneumonia (3) Retroperitoneal bleed (4) Acute blood loss anemia (5) Acute renal failure (6) Peripheral vascular disease (7) CKD (chronic kidney disease) stage 4, GFR 15-29 ml/min (8) Choledocholithiasis (9) Physical deconditioning (10) Sepsis (11) Ischemia of left lower extremity Symptom Scale: (1) Dyspnea 0-10 Scale: Unable to quantify (2) Pain 0-10 Scale: Unable to quantify (3) Debility 0-10 Scale: Unable to quantify Pertinent Non-Medical Issues Psychosocial: Patient originally from [facility]. Moved to [place] 6 years ago. He is , has 3 biological children. 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 No service. Spiritual: No buddhism affiliation. Legal: Advance directives completed. Ethical issues impacting care: No ethical issues identified. . Important Contacts Sister/healthcare surrogate: Jennifer Galeas . Prognosis Mr. Bates is a 67-year-old male with a medical history significant for COPD, hypertension, CAD and peripheral vascular disease. Patient presented to ED via EMS on 10/28/17 for evaluation of shortness of breath and pain to his left leg. He was found with occlusion of left iliac artery, not a surgical candidate secondary to sepsis, pneumonia and respiratory failure. Clinical course complicated by acute on chronic renal failure, choledocholithiasis requiring biliary drain placement, retroperitoneal bleed with development of hemorrhagic shock. Patient remains in critical condition, high risk for further complications, decline and . Overall prognosis is guarded. . Code Status: Alternative Code Plan * CODE STATUS: Alternate code, intubation only. * HEALTHCARE DECISION-MAKING: Patient participating medical decision making, however, intermittent confusion secondary to encephalopathy/acute illness. Advanced directives completed, patient designated his sister Jennifer Galeas as healthcare surrogate decision maker. No alternate surrogate designated. Palliative care recommends shared decision making with patient and sister given intermittent confusion. In addition, patient appears to rely on sister for guidance. * GOALS OF CARE: Patient supported by Sister Jennifer electing continuation of aggressive management short of NO cardiac resuscitation. Patient and sister receptive to palliative care follow-up. * SYMPTOMS: = Dyspnea: Multifactorial secondary to COPD, acute illness, physical deconditioning, anemia -retroperitoneal hematoma. Currently on high flow o2 via NC. Currently on Solu-Medrol 40 mg every 8 hours. = Pain: Secondary to multiple lines, prolonged hospitalization/Bedrest. Labadie 7.5/325 mg available as needed, pt denies pain. = Debility: Secondary to prolonged hospitalization and acute on chronic illness. Likely to continue to worsen. PT following, PT at rehab recommended. * Case discussed with bedside RN. * Palliative care contact information has been provided to patient and family. * Palliative care will continue to follow up for further clarification of goals of care as patient's clinical course continues to evolve. . Time Spent Total Floor Time (mins): 25 Attestation To help prompt me to consider important information that might be impacting today's encounter and assessment, information from prior notes written by myself or my colleagues may have been "brought forward" into today's note. My signature on this note, however, is an attestation that I personally performed the exam, history, and/or decision-making noted today, and, unless otherwise indicated, the interactions with patient, family, and staff as well as the review of records all occurred today. I also attest that the listed assessment and stated plan reflect my best clinical judgment today based on the combination of historical information, prior notes, and today's exam/ interactions. When time spent is documented, it refers only to time spent today by the signer, or if indicated, combined time spent today by collaborating physician/nurse practitioner. Rocio Aguiar Nov 18, 2017 17:19
--- NOTE | 2017-11-18 20:01 | HHI.PR ---
Subjective Remarks 67 YOWM with COPD,Sepsis, ischemia of leg Developed RF, intubated mild sob cough, occ sp No Fever Left chest cathetor removed Improvement in breathing on High Flow 02, Fi02 70%, 25L flow Objective Vital Signs Vital Signs Date Time Temp Pulse Resp B/P (MAP) Pulse Ox O2 Delivery O2 Flow Rate FiO2 11/18/17 19:56 92 High Flow Nasal Cannula 25.00 70 11/18/17 18:00 69 11/18/17 16:00 83 11/18/17 16:00 98.0 67 16 133/67 (89) 95 11/18/17 14:00 67 11/18/17 12:00 81 11/18/17 12:00 98.8 74 20 152/75 (100) 90 11/18/17 10:00 87 11/18/17 08:59 93 High Flow Nasal Cannula 20.00 70 11/18/17 08:00 98.4 91 18 165/83 (110) 94 11/18/17 08:00 91 11/18/17 07:00 92 Nasal Cannula 11/18/17 06:00 84 11/18/17 04:00 95 11/18/17 04:00 98.3 87 14 167/116 (133) 92 11/18/17 03:30 91 15 156/103 (120) 94 11/18/17 03:00 88 14 163/73 (103) 95 11/18/17 02:30 83 14 141/67 (91) 88 11/18/17 02:00 90 17 156/75 (102) 92 11/18/17 02:00 90 11/18/17 01:30 82 15 153/72 (99) 95 11/18/17 01:00 91 16 156/72 (100) 95 11/18/17 00:00 86 11/18/17 00:00 98.5 84 17 165/70 (101) 92 11/17/17 23:31 94 20 157/86 (109) 91 11/17/17 23:00 85 16 137/72 (93) 93 11/17/17 22:30 84 17 132/65 (87) 92 11/17/17 22:00 85 18 132/62 (85) 94 11/17/17 22:00 85 11/17/17 21:30 86 18 137/74 (95) 91 11/17/17 21:00 90 18 140/66 (90) 94 11/17/17 20:42 94 High Flow Nasal Cannula 20.00 70 I/O 11/17/17 11/17/17 11/17/17 11/18/17 11/18/17 11/18/17 07:00 15:00 23:00 07:00 15:00 23:00 Intake Total 300 ml 50 ml 850 ml 150 ml 950 ml Output Total 1320 ml 1410 ml 1370 ml 1553 ml Balance -1020 ml 50 ml -560 ml -1220 ml -603 ml Intake Oral 300 ml 750 ml 100 ml 850 ml IV Total 50 ml 100 ml 50 ml 100 ml Output Urine Total 1250 ml 1300 ml 1300 ml 1553 ml Drainage Total 70 ml 110 ml 70 ml # Bowel Movements 0 0 0 Result Diagram: 11/18/17 1219 11/18/17 1219 Objective Remarks GENERAL: WBWN WM, mild sob SKIN: Warm and dry. HEAD: Normocephalic. EYES: No scleral icterus. No injection or drainage. NECK: Supple, trachea midline. No JVD or lymphadenopathy. CARDIOVASCULAR: Regular rate and rhythm without murmurs, gallops, or rubs. RESPIRATORY: Breath sounds equal bilaterally. No accessory muscle use. GASTROINTESTINAL: Abdomen soft, non-tender, nondistended. MUSCULOSKELETAL: No cyanosis, or edema. Cold left leg BACK: Nontender without obvious deformity. No CVA tenderness. A/P Assessment and Plan IMPRESSION: 1. Sepsis. 2. Chronic obstructive pulmonary disease, mild exacerbation. 3. Left basilar infiltrate. 4. Urinary tract infection 5. Encephalopathy. 6. Cold left leg. 7. Thrombocytopenia. 8. VDRF--extubated 11/07 9. Severe anemia, retroperitoneal bleed PLAN: Cont Abx per ID Monitor renal functions Supplement 02 with high flow 02 Encourage PO DW RN at BS Monitor H/H IV Solumedrol. Dennis Johnson MD Nov 18, 2017 20:01
[2017-11-19] VITALS (16 sets, daily range): BP systolic 140–160; BP diastolic 64–94; PULSE 58–87; RESP 12–26; TEMP 97.8–98.4; O2SAT 90–97
[2017-11-19] MEDS: methylPREDNISolone SOD SUCC 40 MG/1 ML VIAL IV PUSH SCH ×3 (00:20→23:39)
[2017-11-19] MEDS: RESP: ALBUTEROL 2.5 MG/IPRATROPIUM 0.5 MG NEB (SCH) NEB ×6 (02:51→23:18)
[2017-11-19] MEDS: CHLORHEXIDINE GLUCONATE 2 % 1 PACK (2 CLOTHS) TOP SCH (04:00)
[2017-11-19] MEDS: hydrALAZINE HCL 50 MG TAB PO SCH ×3 (06:20→22:38)
[2017-11-19 06:41] LABS: BICARBONATE 23.8 MEQ/L (21.0-32.0); CALCIUM 7.4 MG/DL (8.5-10.1); CALCIUM-PROTEIN CORRECTED 8.3 MG/DL (8.5-10.1); CREATININE 0.82 MG/DL (0.60-1.30); MAGNESIUM 2.2 MG/DL (1.5-2.5); PHOSPHORUS 3.6 MG/DL (2.5-4.9); TOTAL BILIRUBIN ADULT 7.2 MG/DL (0.2-1.0); TOTAL PROTEIN 5.4 GM/DL (6.4-8.2)
--- NOTE | 2017-11-19 09:15 | HHI.CCPN ---
Subjective Remarks/Hospital Course 67-year-old male presents to the emergency department via EMS for evaluation of shortness of breath and pain and numbness to the left leg. Patient believes that he is shortness of breath is related to the pain in his leg. He cannot feel his leg from his groin down. He denies any history of the same. He does report history of COPD. He denies any known fevers or chills. He denies chest pain. Patient received 1 L normal saline bolus via EMS. Patient denies any history of bleeding or blood clots. No recent surgery or travel. No hemoptysis. No history of DVT/PE. He denies leg edema. Patient states the pain is 10/10 to the left leg. No exacerbating or alleviating factors. Moderate severity. 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 The right inflow is heavily diseased as well. The patient was evaluated by vascular surgeon devops consultant and was immediately started on heparin drip. SUBJ 10/29: Remains critically ill, encephalopathy. 4 out of 4 bottles positive for GNR. I will change Rocephin to Zosyn renally dosed to cover for Pseudomonas also. Continue azithromycin. Creatinine still elevated but slightly improved. WBC count slightly increased 17.2 now with 24% bands. Source of GNR sepsis could be either UTI or pneumonia. Will consult ID as well. Remains on IV heparin for acute left limb ischemia 10/30: platelets falling >50% again today. Cr still rising, but could be ATN/ contrast nephropathy. blood cultures growing e. coli by PCR, full speciation to follow. urine culture pending. discussed case with Dr. Lopez, will stop heparin , start argatroban and send HIT/CHARLEEN. denies complaints for me, but does have objective tenderness on palpation, RUQ. 10/31: Emergently intubated today a.m. by Dr. Puckett for worsening mental status, encephalopathy and worsening respiratory failure. Prior to intubation Dr. Puckett ' exam revealed right upper quadrant tenderness. Ultrasound of the gallbladder yesterday showed gallstones. Overnight Argatroban was supratherapeutic and was held, platelet count also dropped to 30,000, HIT screen is pending. Postintubation bilateral pupils are reactive but unequal. Will repeat CT of the head, CT abdomen pelvis. BUN 49/Creat 2.7, leukocytosis persisting 11/01: no improvements. ct abd/pelvis with evidence of possible choledocholithiasis. perc doug tube planned for this AM. on esmolol infusion for afib RVR. fio2 increased to 70%. 11/02: Sodium bicarbonate infusion continued per nephrology in the setting of rhabdomyolysis serial creatinine kinase pending. Cholecystostomy drain placement 100 cc overnight. Continued thrombocytopenia, CBC, serotonin release assay pending. Plan for reinitiation of heparin awaiting GI consultation for possible invasive procedures prior to restarting heparin. Patient sinus rhythm with occasional PAC's. 11/03: No acute events overnight. Sodium bicarbonate infusion discontinued this a.m. had any improved this a.m.. Chest x-ray showed worsening consolidation, FiO2 requirements were increased to 65% during the night. CPAP trials on hold currently. Biliary drainage from cholecystostomy tube revealing gram-negative rods. The patient continues on antibiotics. Bilateral dorsalis pedis pulses monophasic signals by Doppler. Heparin infusion reinitiated. 11/04: Sodium bicarbonate infusion discontinued at 7 AM yesterday. Chest x-ray worsening consolidation versus pleural effusions. FiO2 slightly decreased to 60 %, ABG improving. Pending quantification via ultrasound of pleural fluid in am. Lasix 40mg x1 additional dose provided today . PPN discontinued discussed with Dr. Colon tube feeds initiated at [facility]. Dietary consult ordered. 11/05: Afebrile. Patient tolerating tube feeds advanced to goal rate of 55 cc/ hr. chest x-ray with slight improvement FiO2 decreased to 55% ABG pending. Initiation of CPAP trial to be attempted today. 11/06: Late entry note. Patient seen at 628am. Patient was started on CPAP and continues on CPAP greater than 10 hours. Patient following commands, currently on Precedex infusion. 11/07: Patient remained on CPAP trials for approximately 12 hours yesterday and discontinued because of agitation. CPAP trials reinitiated this a.m. Patient complaint of sore throat Lortab ordered. Patient continues on Precedex for ventilator weaning process. Chest x-ray still shows pulmonary edema, additional dose Lasix 401 dose given this a.m.. When infusion continued, monophasic Doppler signals bilateral dorsalis pedal pulses noted. 11/08: Afebrile . Patient successfully extubated yesterday. Remains on O2 at 4 L nasal cannula O2 saturation 94-95%. Patient continues on heparin infusion, she was noted to have 9 BMs last evening plan for serial H&H's concern for possible stool with occult blood. Repeat stool for occult blood. Plan for possible bedside thoracentesis ,if respiratory requirements increase, currently on O2 4 L via nasal cannula in no apparent distress. 11/11 Late entry, notified of re-consult at 17:[address] Johnson, saw patient and immediately placed L IJ CVL because patient had ripped out an IV and had insufficient peripheral IV access given clinical condition. RN states patient had Hgb 7.5 this morning. Trend was unusual with Hb 8.3--> 12.5 (without transfusion)-->7.5 and lab recommended repeat. Repeat was drawn and was 4.2. Meanwhile, while awaiting re-draw patient became hypotensive, MAP down in the 40s, and was given albumin 25 gram IV. Now he has received 1 unit PRBC and BP improved to 120s/60s. Getting 2 additional units of PRBC stat. Nurse states heparin has been off since 12:30. Sending stat coags/fibrinogen. Patient denies nausea or vomiting. He has some right-sided abdominal pain. There is dark brown drainage from cholecystostomy tube. He has not had a bowel movement in 48 hours. No obvious evidence of GI bleeding. CT abdomen and pelvis has been ordered as "urgent", now giving additional PRBC and then will obtain stat. Gastroenterology has been following and I have notified them of the anemia, though this does not appear to be GI source at this time. 11/12 CT last night showed large retroperitoneal hematoma. Transfused total of 3 units PRBC yest evening. Hgb now 8.3. Coags/fibrinogen in acceptable range this morning, heparin drip off. Patient states much less abdominal pain today. He is alert and oriented now. Coughing, O2 requirement up to 6 L NC, afebrile. 11/13 Had some hemoptysis yesterday. CT with bilateral pleural effusions/ LLL atelectasis vs infiltrate. Now on 8 L SM, tachypneic with more labored breathing today. Edematous, will diurese. He is alert and capacitated currently and agrees to L pleural drainage. Transfused 1 unit PRBC yesterday for Hgb 7.4. He still has some Right sided abdominal pain 11/14: Resting in bed on simple facemask. Hemoglobin 6.9 this morning. Patient denies any worsening shortness of breath or chest pain. 1 unit PRBCs being transfused. Left-sided pigtail catheter placed 11/13 drain 650 cc 11/15 Remains on simple mask, breathing a little labored. L pigtail catheter output is serous, 270 last 24 hours. Planned to tap R pleural effusion but when performed u/s the fluid had decreased significantly and did not appear amenable to drainage; continue diuresis. Labs are pending, nurse is about to draw them. Afebrile 11/16 Diuresing, creatinine stable. On NC. Afebrile. L Chest tube output 220. Hgb 7.6 from 8.8. Transfusing 1 unit PRBC. Noted lipase 827. Patient denies n/v /abdominal tenderness. He says he is feeling "much better" and denies abd pain. Subjective: 11/17 Chest tube removed yesterday without complication. Labored breathing when he got OOB overnight. He is tired of wearing simple mask so he wants to try HFNC. Depressed today, is worried his ERCP will get canceled. Wants to get out of the hospital. Case management working on transfer to [facility] when cleared following ERCP. 11/18 Patient is on high flow oxygen with 70% FIO2. For ERCP today. 11/19 No events overnight. ERCP wasn't done yesterday as patient is on high flow oxygen. Remains on 25L with 70% FIO2. Afebrile. Objective Vital Signs Date Time Temp Pulse Resp B/P (MAP) Pulse Ox O2 Delivery O2 Flow Rate FiO2 11/19/17 08:46 91 High Flow Nasal Cannula 25.00 70 11/19/17 06:00 58 11/19/17 04:00 98.0 16 145/65 (91) Intake and Output 11/19/17 11/19/17 11/20/17 08:00 16:00 00:00 Intake Total 760 ml Output Total 1350 ml Balance -590 ml Result Diagram: 11/18/17 1219 11/19/17 0523 Other Results Laboratory Tests Test 11/18/17 12:19 11/19/17 05:23 White Blood Count 10.1 TH/MM3 Red Blood Count 2.77 MIL/MM3 Hemoglobin 8.6 GM/DL Hematocrit 25.7 % Mean Corpuscular Volume 92.9 FL Mean Corpuscular Hemoglobin 31.2 PG Mean Corpuscular Hemoglobin Concent 33.6 % Red Cell Distribution Width 18.4 % Platelet Count 80 TH/MM3 Mean Platelet Volume 10.7 FL Neutrophils (%) (Auto) 96.9 % Lymphocytes (%) (Auto) 1.4 % Monocytes (%) (Auto) 1.6 % Eosinophils (%) (Auto) 0.0 % Basophils (%) (Auto) 0.1 % Neutrophils # (Auto) 9.8 TH/MM3 Lymphocytes # (Auto) 0.1 TH/MM3 Monocytes # (Auto) 0.2 TH/MM3 Eosinophils # (Auto) 0.0 TH/MM3 Basophils # (Auto) 0.0 TH/MM3 CBC Comment AUTO DIFF Differential Total Cells Counted 100 Neutrophils % (Manual) 86 % Band Neutrophils % 11 % Lymphocytes % 2 % Monocytes % 1 % Neutrophils # (Manual) 9.8 TH/MM3 Differential Comment FINAL DIFF MANUAL Platelet Estimate LOW Platelet Morphology Comment NORMAL Acanthocytes OCC Blood Urea Nitrogen 32 MG/DL 33 MG/DL Creatinine 0.90 MG/DL 0.82 MG/DL Random Glucose 92 MG/DL 98 MG/DL Total Protein 5.7 GM/DL 5.4 GM/DL Albumin 3.5 GM/DL 3.0 GM/DL Calcium Level 7.9 MG/DL 7.4 MG/DL Phosphorus Level 2.2 MG/DL 3.6 MG/DL Magnesium Level 2.2 MG/DL 2.2 MG/DL Alkaline Phosphatase 56 U/L 55 U/L Aspartate Amino Transf (AST/SGOT) 42 U/L 34 U/L Alanine Aminotransferase (ALT/SGPT) 101 U/L 87 U/L Total Bilirubin 7.8 MG/DL 7.2 MG/DL Sodium Level 146 MEQ/L 143 MEQ/L Potassium Level 3.3 MEQ/L 4.1 MEQ/L Chloride Level 107 MEQ/L 109 MEQ/L Carbon Dioxide Level 28.1 MEQ/L 23.8 MEQ/L Anion Gap 11 MEQ/L 10 MEQ/L Estimat Glomerular Filtration Rate 84 ML/MIN 93 ML/MIN Protein Corrected Calcium 8.3 MG/DL Imaging Last Impressions Chest X-Ray 11/18/17 0000 Signed Impressions: CONCLUSION: Some improvement in the bibasilar infiltrates. Chest CT 11/12/17 Signed Impressions: CONCLUSION: 1. Bilateral pleural effusions left greater than right. Areas of infiltrate ve rsus atelectasis left lung base difficult to rule out a small superimposed pneu monia. 2. Dense coronary atherosclerotic disease. Abdomen/Pelvis CT 11/11/171852 Signed Impressions: CONCLUSION: 1. New complex fluid collection in the right-sided the abdomen which appears t o be extraperitoneal anterior to the right psoas muscle and displacing the righ t colon medially. Fluid collection measures up to 21 cm in length and 10.7 cm i n maximal diameter. Differential diagnosis includes hematoma or infection/absce ss. 2. Mild free fluid within the abdomen. 3. Mild anasarca. 4. Cholecystostomy tube in right upper quadrant without fluid directly around the gallbladder. 5. Small to moderate bilateral effusions with slight improvement in basilar mani ng consolidation since November 01. Chest Ultrasound 11/07/17 Signed Impressions: CONCLUSION: 1. Left-sided pleural effusion. Percutaneous Cholangiogram 11/01/17 Signed Impressions: CONCLUSION: 1. Uncomplicated percutaneous cholecystostomy as above. Renal Ultrasound 10/31/17 Signed Impressions: CONCLUSION: 1. No hydronephrosis. 2. Increased cortical echogenicity consistent with medical renal disease. Head Magnetic Resonance Angiography 10/31/17 Signed Impressions: CONCLUSION: 1. Unremarkable MRA of the brain. Head CT 10/31/17 Signed Impressions: CONCLUSION: 1. Negative CT Head non contrast. 2. No evidence of acute infarct, hemorrhage, mass or edema. Brain MRI 10/31/17 Signed Impressions: CONCLUSION: 1. Senescent changes with minimal periventricular ischemic white matter demyel ination. 2. No acute abnormality. Specifically, no acute infarction, mass or hemorrhage . Gall Bladder Ultrasound 10/30/17 Signed Impressions: CONCLUSION: 1. Fatty infiltration of the liver. 2. Multiple stones in the gallbladder. No biliary tract obstruction. Extremity Arterial Study 10/28/17 Signed Impressions: CONCLUSION: 1. Abnormal ABIs, left greater than right. The left DAVID is significantly dimin ished at 0.14. Aorta w/Runoff CTA 10/28/17 Signed Impressions: Service Date/Time: Saturday, October 28, 2017 21:50 - CONCLUSION: 1. Acute occlusion of the left inflow with concern for short segment occlusion involving the distal right inflow. This raises concern for an embolic event. 2. Right lower extremity shows scattered disease throughout the common femoral artery, SFA and [id number] popliteal artery with three-vessel runoff to the foot. 3. Left lower extremity with reconstitution of the common femoral artery with diseased out flow and two vessel runoff to the foot as detailed above. 4. 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 5. Hepatic steatosis. 6. Cholelithiasis. Juanjose Mckeon Jr., MD Objective Remarks GENERAL: This is a well-developed laying in bed, alert and conversant. SKIN: Warm and dry. HEAD: Normocephalic. ENT: + scleral icterus. No injection or drainage. Pupils are now equal at 3mm, reactive. On NC. NECK: Supple, trachea midline. No JVD. CARDIOVASCULAR: Regular, rate in the 70s. No murmurs rubs or gallops. RESPIRATORY: Slightly tachypneic on simple mask with no accessory muscle use.. Breath sounds, diminished bibasilar. GASTROINTESTINAL: Abdomen soft, mildly distended, no tenderness to palpation. bowel sounds present. Cholecystostomy tube is in place draining dark brown fluid. No flank hematoma. : Peña in place with light yellow urine output MUSCULOSKELETAL: No cyanosis, 1+ bipedal edema. Bilateral DP with Doppler pulses. Discoloration of left fifth toe. Bruising of right distal forearm and ecchymosis finger tips of right hand with 1+ right hand edema, palpable radial pulse and good credit support specialist. NEURO EXAM: Eyes open, makes eye contact. Oriented to person, place, year. Moves all extremities with no focal deficit A/P Assessment and Plan ASSESSMENT/PLAN: NEURO: Acute metabolic encephalopathy, improved Awake and alert -Lortab as needed for pain -10/31 CT of the head- negative -10/31MRIminimal periventricular ischemic white matter change no acute abnormality RESP: COPD exacerbation, resolved Left lower lobe pneumonia, resolved ARDS, resolved Respiratory distress, improved. Bilateral pleural effusions. -Emergently intubated and placed on mechanical ventilation 10/31/2017. Extubated 11/07/17. Wean down oxygen as josiah keep sats >92% -L pigtail chest tube placed with initially 600 mL of serosanginous output. Respiratory status improved. pleural fluid culture negative,pathology pending. Chest tube removed 11/17 -U/s R pleural effusion on 11/15 - not amenable to drainage. Continue Symbicort 160/4.52 puffs inhaled every 12 hours Incentive spirometry every hour awake, Acapella. Continue Solumedrol to 40 mg IV q12 . Guaifenesin 600 mg p.o. twice daily CXR yesterday some improvements in bibasilar infiltrates Dr. Johnson following CVS: Hemorrhagic shock, resolved. Secondary to R retroperitoneal hematoma Lactic acidemia Acute on chronic left limb ischemia, improved Paroxysmal atrial fibrillation HTN -CTA showed severe aorto-iliac occlusive disease with left iliac thrombosis. Dr. Lopez evaluated, may need ax-fem bypass at some point but not during this hospitalization. -No longer a candidate for anticoagulation, ASA/Plavix recommended when patient stabilized. Now off antiplatelets both due to large RP bleed and now planned ERCP. GI requests antiplatets on hold at least 5 days for ERCP. Consider CT abdomen and pelvis in a couple days to evaluate stability of the hematoma and consider initiation of ASA. -Significant calcifications and peripheral vascular disease -2D echo: EF 50%, no significant valvular lesions. left sided pleural effusion -HIT screen negative. CHARLEEN -negative -Continue Cardizem 240 mg p.o. daily, Hydralazine 50mg Q8, Lopressor 50mg Q12 GI Acute hepatic dysfunction Hyperbilirubinemia Transaminitis Acute Choledocholithiasis R retroperitoneal hematoma -Trend LFTs. Lipase elevated but he is asymptomatic now. ERCP when O2 requirements is better - gallbladder ultrasound showed multiple gallstones -Retroperitoneal hematoma on 11/11 while on heparin drip, CT with large R retroperitoneal hematoma. Manage medically, - Gen Surgery following. -Will repeat CT abd/pelvis to follow up on retroperitoneal hematoma -CT abdomen/pelvis 11/01: c/w choledocholithiasis - Perc cholecystostomy tube placed 11/01 by IR- Monitor drainage -Eventual cholecystectomy when stabilized. Dr. Martins has seen. FEN/RENAL Acute kidney injury- improving Monitor renal function, I/O's, electrolytes replacement as needed Continue diuresis with Lasix 40 mg IV q12. Nephrology has signed off. ID E COLI bacteremia/severe sepsis, resolved Enterococcus in the urine: possible colonization vs. UTI. Acute Choledocholithiasis/ Cholangitis Biliary fluid gram-negative rods Cholecystostomy placed 11/01. Completed abx course per ID: Unasyn discontinued 11/13. Monitor for signs of infections ( Fever, WBC) HEME: Acute blood loss anemia overlying anemia of chronic disease acute thrombocytopenia: Initially consumptive secondary to sepsis earlier during admission then consumptive secondary to acute blood loss. - HIT negative. CHARLEEN negative 10/30. Heparin on hold since 11/11. Monitor coags, transfuse blood products as indicated. 3 units PRBC 11/11. 1 unit 11/12. 1 unit PRBCs ordered for hemoglobin 6.9 on 11/14. 1 unit PRBC 11/16 DVT GI prophylaxis -Vickey's and SCDs -Heparin infusion on hold due to bleeding/thrombocytopenia. ACCESS: . PIV Placed emergent left IJ central venous line 11/11-11/[address] Puckett: Patient states he agrees to reintubation if needed. In the setting of pulseless arrest he would not want CPR, shocks, intubation, ACLS drugs. CODE STATUS is alternate code intubation only. Patient's sister states that he has designated her as healthcare surrogate. He has advanced directives. Palliative care following. PT/OT Level 3 f/u. Vandana Frazier MD Nov 19, 2017 09:15
[2017-11-19] MEDS: METOPROLOL TARTRATE 50 MG TAB PO SCH ×2 (09:23→20:33)
[2017-11-19] MEDS: FUROSEMIDE 40 MG/4 ML VIAL IV PUSH SCH ×2 (09:24→20:32)
[2017-11-19] MEDS: FAMOTIDINE 20 MG TAB PO SCH ×2 (09:24→20:32)
[2017-11-19] MEDS: DILTIAZEM-CD 240 MG CAP ER PO SCH (09:24)
[2017-11-19] MEDS: NYSTATIN SUSP 500,000 U/5 ML CUP SWISH-SWAL SCH ×3 (09:24→20:34)
[2017-11-19] MEDS: BUDESONIDE-FORMOTEROL 160/4.5 MCG INHALER INH SCH ×2 (09:24→20:34)
[2017-11-19] MEDS: SODIUM CHLORIDE 0.9% FLUSH 10 ML FLUSH IV FLUSH SCH ×2 (09:24→20:34)
[2017-11-19] MEDS: guaiFENesin E.R. 600 MG TAB PO SCH ×2 (09:24→20:32)
[2017-11-19 10:46] LABS: AUTOMATED NEUTROPHIL # 8.9 TH/MM3 (1.8-7.7); BASOPHIL % 0.1 % (0.0-2.0); HEMATOCRIT 26.5 % (39.0-51.0); HEMOGLOBIN 8.9 GM/DL (13.0-17.0); LYMPH % 1.3 % (9.0-44.0); LYMPHOCYTE # 0.1 TH/MM3 (1.0-4.8); MEAN CELL VOLUME 93.3 FL (80.0-100.0); MEAN CORPUSCULAR HEMOGLOBIN 31.3 PG (27.0-34.0); MEAN CORPUSCULAR HGB CONC 33.5 % (32.0-36.0); MEAN PLATELET VOLUME 10.8 FL (7.0-11.0); MONO % 1.9 % (0.0-8.0); MONOCYTE # 0.2 TH/MM3 (0-0.9); NEUT % 96.7 % (16.0-70.0); PLATELET COUNT 76 TH/MM3 (150-450); RED BLOOD COUNT 2.84 MIL/MM3 (4.50-5.90); RED CELL DISTRIBUTION WIDTH 18.6 % (11.6-17.2); WHITE BLOOD COUNT 9.3 TH/MM3 (4.0-11.0)
--- NOTE | 2017-11-19 13:59 | HHI.PR ---
cc: Richi Martins MD Subjective Subjective Notes RN at bedside repositioning patient No complaints Objective Vitals/I&O Vital Signs Date Time Temp Pulse Resp B/P (MAP) Pulse Ox O2 Delivery O2 Flow Rate FiO2 11/19/17 10:00 76 11/19/17 08:46 91 High Flow Nasal Cannula 25.00 70 11/19/17 04:00 98.0 16 145/65 (91) Labs Laboratory Tests Test 11/19/17 05:23 11/19/17 10:30 Blood Urea Nitrogen 33 Creatinine 0.82 Random Glucose 98 Total Protein 5.4 Albumin 3.0 Calcium Level 7.4 Phosphorus Level 3.6 Magnesium Level 2.2 Alkaline Phosphatase 55 Aspartate Amino Transf (AST/SGOT) 34 Alanine Aminotransferase (ALT/SGPT) 87 Total Bilirubin 7.2 Sodium Level 143 Potassium Level 4.1 Chloride Level 109 Carbon Dioxide Level 23.8 Anion Gap 10 Estimat Glomerular Filtration Rate 93 Protein Corrected Calcium 8.3 White Blood Count 9.3 Red Blood Count 2.84 Hemoglobin 8.9 Hematocrit 26.5 Mean Corpuscular Volume 93.3 Mean Corpuscular Hemoglobin 31.3 Mean Corpuscular Hemoglobin Concent 33.5 Red Cell Distribution Width 18.6 Platelet Count 76 Mean Platelet Volume 10.8 Neutrophils (%) (Auto) 96.7 Lymphocytes (%) (Auto) 1.3 Monocytes (%) (Auto) 1.9 Eosinophils (%) (Auto) 0.0 Basophils (%) (Auto) 0.1 Neutrophils # (Auto) 8.9 Lymphocytes # (Auto) 0.1 Monocytes # (Auto) 0.2 Eosinophils # (Auto) 0.0 Basophils # (Auto) 0.0 CBC Comment AUTO DIFF Differential Comment AUTO DIFF CONFIRMED Platelet Estimate LOW Platelet Morphology Comment NORMAL Date/Time Source Procedure Growth Status 10/30/17 20:38 Blood Peripheral Aerobic Blood Culture - Final NO GROWTH IN 5 DAYS Complete 10/30/17 20:38 Blood Peripheral Anaerobic Blood Culture - Final NO GROWTH IN 5 DAYS Complete 11/13/17 12:00 Fluid Pleural Fluid Gram Stain - Final Complete 11/13/17 12:00 Fluid Pleural Fluid Body Fluid Culture - Final NO GROWTH IN 72 HRS.--AEROBICALLY OR ... Complete 11/04/17 05:08 Stool Stool Stool Occult Blood (NUBIA) - Final HEMOCCULT POSITIVE Complete 10/31/17 10:40 Sputum Endotracheal Gram Stain - Final Complete 10/31/17 10:40 Sputum Endotracheal Sputum Culture - Final HEAVY GROWTH NORMAL RESPIRATORY KAREEM Complete 10/29/17 00:00 Urine Catheterized Urine Urine Culture - Final Enterococcus Faecalis Complete Cardiovascular: Regular Lungs: Clear Abdomen: Non-distended, Non-tender Narrative Exam Moderate generalized edema A/P Assessment and Plan 67 year old male with multiple medical problems on heparin drip with retroperitoneal hematoma -Diet as tolerated -Hmg stable -Continue to hold anticoagulation -Continue abdominal exams; exam continues to be benign -Continue non operative treatment Attending Statement The exam, history, and the medical decision-making described in the above note were completed with the assistance of the mid-level provider. I reviewed and agree with the findings presented. I attest that I had a [id number] encounter with the patient on the same day, and personally performed and documented my assessment and findings in the medical record. patient with retroperitoneal hematoma no evidence of recurrent bleeding or infection continue medical management, would re-image at some point to ensure improvement/ resolution Silvana Whalen/First Alisha MACK Nov 19, 2017 13:59 Richi Martins MD Nov 23, 2017 19:46
[2017-11-19] MEDS: CHLORHEXIDINE 0.12% (ORAL KIT) 15 ML CUP MT SCH (20:00)
--- NOTE | 2017-11-19 20:08 | HHI.PR ---
Subjective Remarks 67 YOWM with COPD,Sepsis, ischemia of leg Developed RF, intubated mild sob cough, occ sp No Fever Improvement in breathing on High Flow 02, Fi02 70%, 25L flow going for CT abd Objective Vital Signs Vital Signs Date Time Temp Pulse Resp B/P (MAP) Pulse Ox O2 Delivery O2 Flow Rate FiO2 11/19/17 18:00 63 11/19/17 16:00 98.4 75 26 160/80 (106) 97 11/19/17 16:00 72 11/19/17 14:00 64 11/19/17 12:00 98.3 64 15 151/67 (95) 93 11/19/17 12:00 64 11/19/17 10:00 76 11/19/17 08:46 91 High Flow Nasal Cannula 25.00 70 11/19/17 08:00 87 11/19/17 08:00 97.9 58 12 140/64 (89) 91 11/19/17 07:00 91 Nasal Cannula 25.00 70 11/19/17 06:00 58 11/19/17 04:00 98.0 64 16 145/65 (91) 92 11/19/17 04:00 64 11/19/17 03:00 68 18 148/94 (112) 93 11/19/17 02:00 65 13 147/73 (97) 94 11/19/17 02:00 65 11/19/17 01:00 63 14 143/68 (93) 90 11/19/17 00:00 65 11/19/17 00:00 97.8 65 19 142/76 (98) 94 11/18/17 23:00 65 17 128/61 (83) 92 11/18/17 22:00 68 11/18/17 22:00 68 20 148/70 (96) 91 11/18/17 21:31 72 21 158/69 (98) 90 11/18/17 21:00 72 20 141/92 (108) 92 11/18/17 20:30 75 20 144/66 (92) 92 I/O 11/18/17 11/18/17 11/18/17 11/19/17 11/19/17 11/19/17 07:00 15:00 23:00 07:00 15:00 23:00 Intake Total 150 ml 1050 ml 760 ml 650 ml Output Total 1370 ml 1553 ml 1350 ml 1115 ml Balance -1220 ml -503 ml -590 ml -465 ml Intake Oral 100 ml 850 ml 500 ml 650 ml IV Total 50 ml 200 ml 260 ml Output Urine Total 1300 ml 1553 ml 1150 ml 985 ml Drainage Total 70 ml 200 ml 130 ml # Bowel Movements 0 0 0 Result Diagram: 11/19/17 1030 11/19/17 0523 Objective Remarks GENERAL: WBWN WM, mild sob SKIN: Warm and dry. HEAD: Normocephalic. EYES: No scleral icterus. No injection or drainage. NECK: Supple, trachea midline. No JVD or lymphadenopathy. CARDIOVASCULAR: Regular rate and rhythm without murmurs, gallops, or rubs. RESPIRATORY: Breath sounds equal bilaterally. No accessory muscle use. GASTROINTESTINAL: Abdomen soft, non-tender, nondistended. MUSCULOSKELETAL: No cyanosis, or edema. Cold left leg BACK: Nontender without obvious deformity. No CVA tenderness. A/P Assessment and Plan IMPRESSION: 1. Sepsis. 2. Chronic obstructive pulmonary disease, mild exacerbation. 3. Left basilar infiltrate. 4. Urinary tract infection 5. Encephalopathy. 6. Cold left leg. 7. Thrombocytopenia. 8. VDRF--extubated 11/07 9. Severe anemia, retroperitoneal bleed PLAN: Cont Abx per ID Monitor renal functions Supplement 02 with high flow 02 Encourage PO DW RN at BS Monitor H/H Dennis Johnson MD Nov 19, 2017 20:08
[2017-11-20] VITALS (14 sets, daily range): BP systolic 128–144; BP diastolic 60–71; PULSE 57–77; RESP 13–21; TEMP 98–98.2; O2SAT 88–97
[2017-11-20] MEDS: RESP: ALBUTEROL 2.5 MG/IPRATROPIUM 0.5 MG NEB (SCH) NEB ×6 (03:20→23:19)
[2017-11-20] MEDS: CHLORHEXIDINE GLUCONATE 2 % 1 PACK (2 CLOTHS) TOP SCH (04:00)
[2017-11-20] MEDS: hydrALAZINE HCL 50 MG TAB PO SCH ×3 (05:20→21:42)
[2017-11-20 05:50] LABS: ALBUMIN 2.8 GM/DL (3.4-5.0); BICARBONATE 26.6 MEQ/L (21.0-32.0); CALCIUM 7.4 MG/DL (8.5-10.1); CALCIUM-PROTEIN CORRECTED 8.5 MG/DL (8.5-10.1); CREATININE 0.83 MG/DL (0.60-1.30); TOTAL BILIRUBIN ADULT 5.5 MG/DL (0.2-1.0); TOTAL PROTEIN 5.1 GM/DL (6.4-8.2)
[2017-11-20 07:03] LABS: AUTOMATED NEUTROPHIL # 6.3 TH/MM3 (1.8-7.7); BASOPHIL % 0.2 % (0.0-2.0); HEMATOCRIT 25.5 % (39.0-51.0); HEMOGLOBIN 8.6 GM/DL (13.0-17.0); LYMPH % 1.3 % (9.0-44.0); LYMPHOCYTE # 0.1 TH/MM3 (1.0-4.8); MEAN CELL VOLUME 93.4 FL (80.0-100.0); MEAN CORPUSCULAR HEMOGLOBIN 31.4 PG (27.0-34.0); MEAN CORPUSCULAR HGB CONC 33.7 % (32.0-36.0); MEAN PLATELET VOLUME 10.8 FL (7.0-11.0); MONO % 2.5 % (0.0-8.0); MONOCYTE # 0.2 TH/MM3 (0-0.9); PLATELET COUNT 74 TH/MM3 (150-450); RED BLOOD COUNT 2.73 MIL/MM3 (4.50-5.90); RED CELL DISTRIBUTION WIDTH 18.4 % (11.6-17.2); WHITE BLOOD COUNT 6.6 TH/MM3 (4.0-11.0)
[2017-11-20] MEDS: CHLORHEXIDINE 0.12% (ORAL KIT) 15 ML CUP MT SCH ×2 (08:00→20:00)
[2017-11-20] MEDS: BUDESONIDE-FORMOTEROL 160/4.5 MCG INHALER INH SCH ×2 (09:00→20:07)
[2017-11-20] MEDS: SODIUM CHLORIDE 0.9% FLUSH 10 ML FLUSH IV FLUSH SCH ×2 (09:00→20:07)
[2017-11-20] MEDS: NYSTATIN SUSP 500,000 U/5 ML CUP SWISH-SWAL SCH ×4 (09:00→20:18)
[2017-11-20] MEDS: guaiFENesin E.R. 600 MG TAB PO SCH ×2 (11:17→20:08)
[2017-11-20] MEDS: METOPROLOL TARTRATE 50 MG TAB PO SCH ×2 (11:18→20:08)
[2017-11-20] MEDS: DILTIAZEM-CD 240 MG CAP ER PO SCH (11:18)
[2017-11-20] MEDS: FUROSEMIDE 40 MG/4 ML VIAL IV PUSH SCH ×2 (11:18→20:07)
--- NOTE | 2017-11-20 11:18 | HHI.HCPN ---
Reason for visit a. To assist with evaluation and management of symptoms including: Shortness of breath, pain, debility. b. To assist medical decision maker(s) with: better understanding of current medical conditions; weighing benefits/burdens of medical treatment options; making medical treatment decisions. . Subjective/Interval History Pt seen today to follow up on dyspnea, goals w decision maker. He remains in ICU, on high flow NC O2- 70%. No new imagining, 11/18 CXR with slight improvement. CBC stable/unremarkable. Gen surgery following, cont to have a cystostomy tube. LFTs stable. No plans at this time for further surgical or invasive intervention due to high FiO2 requirements. Patient eating well, tolerating p.o. diet. Patient seen in room no visitors present. He is up in a stretcher chair. He is alert, watching TV. He is mostly oriented though forgetful. He denies pain. Denies dyspnea. He points to the monitor and says his oxygen numbers are good (currently reading 90% O2 saturation). Denies any GI complaints. Tells me he has a good appetite. Ask him if his sister has been and he indicates she has not. Review with him that his condition is currently stable though at this time there are not plans for any further surgical intervention, review that his respiratory status remains fragile and high risk given his high FiO2 requirements. He tells me that he wants to get out of here we explored high FiO2 requirements and underlying lung status. Following exam call to sister and healthcare surrogate Jennifer. Provided medical update and review of current condition, recent diagnostics, current assessment. She asks me why is the patient's only ICU, becker he not getting better, and what are they going to do about his breathing and gallbladder issues. Explore with her that currently he is receiving maximize supportive care for his underlying COPD and other medical comorbidities, and that general surgery is following though at this time surgery is not indicated, cholecystitis being well managed by cholecystostomy tube. Possible in the future if his conditions improve they may still consider surgical interventions are not indicated at this time. Review that he continues to require high FiO2, he has underlying lung disease, and that there are no further treatments to change his underlying lung condition, that with continued increase mobilization ongoing respiratory treatments etc. the hope would be to wean FiO2. All questions answered to the best of my ability. She voices some stress in managing her own medical issues, as well as multiple recent stressors and losses within their immediate family, she tells me that the patient does not seem to understand how sick he is or why he is not getting better. She wants him to keep having hope and not give up on trying to get better. .. Advance Directives Living Will: Copy in medical record Health Care Surrogate: Copy in medical record Advance Directive Specifics Date completed: 10/27/2012. . Health Care Surrogate(s): Patient electing sister Jennifer Galeas as healthcare surrogate decision maker. No alternate surrogates. . Documented care wishes: Living will with standard verbiage as it pertains to terminal condition, end- stage condition or persistent vegetative state. . Objective Vital Signs Date Time Temp Pulse Resp B/P (MAP) Pulse Ox O2 Delivery O2 Flow Rate FiO2 11/20/17 08:11 96 High Flow Nasal Cannula 25.00 70 11/20/17 06:00 57 11/20/17 04:00 57 11/20/17 04:00 98.1 57 15 129/60 (83) 90 11/20/17 02:00 57 11/20/17 00:00 98.2 61 13 138/60 (86) 88 11/20/17 00:00 61 11/19/17 22:00 69 11/19/17 20:00 72 11/19/17 20:00 98.4 72 20 150/67 (94) 92 11/19/17 19:59 93 High Flow Nasal Cannula 25.00 70 11/19/17 19:00 94 Nasal Cannula 25.00 70 11/19/17 18:00 63 11/19/17 16:00 98.4 75 26 160/80 (106) 97 11/19/17 16:00 72 11/19/17 14:00 64 11/19/17 12:00 98.3 64 15 151/67 (95) 93 11/19/17 12:00 64 Intake & Output 11/20/17 11/20/17 07:00 19:00 Intake Total 360 ml Output Total 1310 ml Balance -950 ml Intake Oral 360 ml Output Urine Total 1200 ml Drainage Total 110 ml # Bowel Movements 0 Physical Exam CONSTITUTIONAL/GENERAL: This is an adequately nourished patient , up in stretcher chair. TUBES/LINES/DRAINS: High flow NC, PIV's, biliary drain, Peña catheter, bilateral SCDs. SKIN: Dusky. No jaundice, rashes, or lesions. multiple areas of ecchymoses on bilateral upper extremities, slight edema left hand. CARDIOVASCULAR: irr HR. Warm bilateral extremities, no cyanosis noted. RESPIRATORY/CHEST: mildly short of breath with conversation. + on high flow NC O2 70%. Rhonchi noted. mildly Tachypneic. GASTROINTESTINAL: Abdomen round, obese. drain right quadrant- draining brownish yellow liq. Bowel sounds present. GENITOURINARY: Peña catheter in place, dark orange urine MUSCULOSKELETAL: Extremities without clubbing, cyanosis. +1 pitting edema BLE NEUROLOGICAL: Alert oriented x2-3 , forgetful at times. cooperative, moves all 4 extremeties PSYCHIATRIC: No depression or anxiety or hallucinations evident . Diagnostic Tests Laboratory Laboratory Tests Test 11/18/17 12:19 11/19/17 05:23 11/19/17 10:30 11/20/17 04:34 White Blood Count 10.1 TH/MM3 (4.0-11.0) 9.3 TH/MM3 (4.0-11.0) Red Blood Count 2.77 MIL/MM3 (4.50-5.90) 2.84 MIL/MM3 (4.50-5.90) Hemoglobin 8.6 GM/DL (13.0-17.0) 8.9 GM/DL (13.0-17.0) Hematocrit 25.7 % (39.0-51.0) 26.5 % (39.0-51.0) Mean Corpuscular Volume 92.9 FL (80.0-100.0) 93.3 FL (80.0-100.0) Mean Corpuscular Hemoglobin 31.2 PG (27.0-34.0) 31.3 PG (27.0-34.0) Mean Corpuscular Hemoglobin Concent 33.6 % (32.0-36.0) 33.5 % (32.0-36.0) Red Cell Distribution Width 18.4 % (11.6-17.2) 18.6 % (11.6-17.2) Platelet Count 80 TH/MM3 (150-450) 76 TH/MM3 (150-450) Mean Platelet Volume 10.7 FL (7.0-11.0) 10.8 FL (7.0-11.0) Neutrophils (%) (Auto) 96.9 % (16.0-70.0) 96.7 % (16.0-70.0) Lymphocytes (%) (Auto) 1.4 % (9.0-44.0) 1.3 % (9.0-44.0) Monocytes (%) (Auto) 1.6 % (0.0-8.0) 1.9 % (0.0-8.0) Eosinophils (%) (Auto) 0.0 % (0.0-4.0) 0.0 % (0.0-4.0) Basophils (%) (Auto) 0.1 % (0.0-2.0) 0.1 % (0.0-2.0) Neutrophils # (Auto) 9.8 TH/MM3 (1.8-7.7) 8.9 TH/MM3 (1.8-7.7) Lymphocytes # (Auto) 0.1 TH/MM3 (1.0-4.8) 0.1 TH/MM3 (1.0-4.8) Monocytes # (Auto) 0.2 TH/MM3 (0-0.9) 0.2 TH/MM3 (0-0.9) Eosinophils # (Auto) 0.0 TH/MM3 (0-0.4) 0.0 TH/MM3 (0-0.4) Basophils # (Auto) 0.0 TH/MM3 (0-0.2) 0.0 TH/MM3 (0-0.2) CBC Comment AUTO DIFF AUTO DIFF Differential Total Cells Counted 100 Neutrophils % (Manual) 86 % (16-70) Band Neutrophils % 11 % (0-6) Lymphocytes % 2 % (9-44) Monocytes % 1 % (0-8) Neutrophils # (Manual) 9.8 TH/MM3 (1.8-7.7) Differential Comment FINAL DIFF MANUAL AUTO DIFF CONFIRMED Platelet Estimate LOW (NORMAL) LOW (NORMAL) Platelet Morphology Comment NORMAL (NORMAL) NORMAL (NORMAL) Acanthocytes OCC (NORMAL) Blood Urea Nitrogen 32 MG/DL (7-18) 33 MG/DL (7-18) 35 MG/DL (7-18) Creatinine 0.90 MG/DL (0.60-1.30) 0.82 MG/DL (0.60-1.30) 0.83 MG/DL (0.60-1.30) Random Glucose 92 MG/DL (74-106) 98 MG/DL (74-106) 146 MG/DL (74-106) Total Protein 5.7 GM/DL (6.4-8.2) 5.4 GM/DL (6.4-8.2) 5.1 GM/DL (6.4-8.2) Albumin 3.5 GM/DL (3.4-5.0) 3.0 GM/DL (3.4-5.0) 2.8 GM/DL (3.4-5.0) Calcium Level 7.9 MG/DL (8.5-10.1) 7.4 MG/DL (8.5-10.1) 7.4 MG/DL (8.5-10.1) Phosphorus Level 2.2 MG/DL (2.5-4.9) 3.6 MG/DL (2.5-4.9) Magnesium Level 2.2 MG/DL (1.5-2.5) 2.2 MG/DL (1.5-2.5) Alkaline Phosphatase 56 U/L (45-117) 55 U/L (45-117) 60 U/L (45-117) Aspartate Amino Transf (AST/SGOT) 42 U/L (15-37) 34 U/L (15-37) 24 U/L (15-37) Alanine Aminotransferase (ALT/SGPT) 101 U/L (12-78) 87 U/L (12-78) 80 U/L (12-78) Total Bilirubin 7.8 MG/DL (0.2-1.0) 7.2 MG/DL (0.2-1.0) 5.5 MG/DL (0.2-1.0) Sodium Level 146 MEQ/L (136-145) 143 MEQ/L (136-145) 142 MEQ/L (136-145) Potassium Level 3.3 MEQ/L (3.5-5.1) 4.1 MEQ/L (3.5-5.1) 3.7 MEQ/L (3.5-5.1) Chloride Level 107 MEQ/L (98-107) 109 MEQ/L (98-107) 106 MEQ/L (98-107) Carbon Dioxide Level 28.1 MEQ/L (21.0-32.0) 23.8 MEQ/L (21.0-32.0) 26.6 MEQ/L (21.0-32.0) Anion Gap 11 MEQ/L (5-15) 10 MEQ/L (5-15) 9 MEQ/L (5-15) Estimat Glomerular Filtration Rate 84 ML/MIN (>89) 93 ML/MIN (>89) 92 ML/MIN (>89) Protein Corrected Calcium 8.3 MG/DL (8.5-10.1) 8.5 MG/DL (8.5-10.1) Test 11/20/17 06:35 White Blood Count 6.6 TH/MM3 (4.0-11.0) Red Blood Count 2.73 MIL/MM3 (4.50-5.90) Hemoglobin 8.6 GM/DL (13.0-17.0) Hematocrit 25.5 % (39.0-51.0) Mean Corpuscular Volume 93.4 FL (80.0-100.0) Mean Corpuscular Hemoglobin 31.4 PG (27.0-34.0) Mean Corpuscular Hemoglobin Concent 33.7 % (32.0-36.0) Red Cell Distribution Width 18.4 % (11.6-17.2) Platelet Count 74 TH/MM3 (150-450) Mean Platelet Volume 10.8 FL (7.0-11.0) Neutrophils (%) (Auto) 96.0 % (16.0-70.0) Lymphocytes (%) (Auto) 1.3 % (9.0-44.0) Monocytes (%) (Auto) 2.5 % (0.0-8.0) Eosinophils (%) (Auto) 0.0 % (0.0-4.0) Basophils (%) (Auto) 0.2 % (0.0-2.0) Neutrophils # (Auto) 6.3 TH/MM3 (1.8-7.7) Lymphocytes # (Auto) 0.1 TH/MM3 (1.0-4.8) Monocytes # (Auto) 0.2 TH/MM3 (0-0.9) Eosinophils # (Auto) 0.0 TH/MM3 (0-0.4) Basophils # (Auto) 0.0 TH/MM3 (0-0.2) CBC Comment AUTO DIFF Differential Comment AUTO DIFF CONFIRMED Platelet Estimate LOW (NORMAL) Platelet Morphology Comment NORMAL (NORMAL) Result Diagram: 11/20/17 0635 11/20/17 0434 Imaging Last Impressions Chest X-Ray 11/18/17 Signed Impressions: CONCLUSION: Some improvement in the bibasilar infiltrates. Chest CT 11/12/17 Signed Impressions: CONCLUSION: 1. Bilateral pleural effusions left greater than right. Areas of infiltrate ve rsus atelectasis left lung base difficult to rule out a small superimposed pneu monia. 2. Dense coronary atherosclerotic disease. Abdomen/Pelvis CT 11/11/171852 Signed Impressions: CONCLUSION: 1. New complex fluid collection in the right-sided the abdomen which appears t o be extraperitoneal anterior to the right psoas muscle and displacing the righ t colon medially. Fluid collection measures up to 21 cm in length and 10.7 cm i n maximal diameter. Differential diagnosis includes hematoma or infection/absce ss. 2. Mild free fluid within the abdomen. 3. Mild anasarca. 4. Cholecystostomy tube in right upper quadrant without fluid directly around the gallbladder. 5. Small to moderate bilateral effusions with slight improvement in basilar mani ng consolidation since November 01. Chest Ultrasound 11/07/17 Signed Impressions: CONCLUSION: 1. Left-sided pleural effusion. Percutaneous Cholangiogram 11/01/17 Signed Impressions: CONCLUSION: 1. Uncomplicated percutaneous cholecystostomy as above. Renal Ultrasound 10/31/17 Signed Impressions: CONCLUSION: 1. No hydronephrosis. 2. Increased cortical echogenicity consistent with medical renal disease. Head Magnetic Resonance Angiography 10/31/17 Signed Impressions: CONCLUSION: 1. Unremarkable MRA of the brain. Head CT 10/31/17 Signed Impressions: CONCLUSION: 1. Negative CT Head non contrast. 2. No evidence of acute infarct, hemorrhage, mass or edema. Brain MRI 10/31/17 Signed Impressions: CONCLUSION: 1. Senescent changes with minimal periventricular ischemic white matter demyel ination. 2. No acute abnormality. Specifically, no acute infarction, mass or hemorrhage . Gall Bladder Ultrasound 10/30/17 Signed Impressions: CONCLUSION: 1. Fatty infiltration of the liver. 2. Multiple stones in the gallbladder. No biliary tract obstruction. Extremity Arterial Study 10/28/17 0000 Signed Impressions: CONCLUSION: 1. Abnormal ABIs, left greater than right. The left DAVID is significantly dimin ished at 0.14. Aorta w/Runoff CTA 10/28/17 0000 Signed Impressions: Service Date/Time: Saturday, October 28, 2017 21:50 - CONCLUSION: 1. Acute occlusion of the left inflow with concern for short segment occlusion involving the distal right inflow. This raises concern for an embolic event. 2. Right lower extremity shows scattered disease throughout the common femoral artery, SFA and [id number] popliteal artery with three-vessel runoff to the foot. 3. Left lower extremity with reconstitution of the common femoral artery with diseased out flow and two vessel runoff to the foot as detailed above. 4. 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 5. Hepatic steatosis. 6. Cholelithiasis. Juanjose Mckeon Jr., MD Procedures * 10/31/17: Endotracheal intubation * 11/01/17: Biliary drain placement * 11/07/17: Extubation * 11/13/17: Left-sided pigtail chest tube * 11/17/17: chest tube removed . Assessment and Plan Disease Oriented Problem List: (1) COPD (chronic obstructive pulmonary disease) (2) Pneumonia (3) Retroperitoneal bleed (4) Acute blood loss anemia (5) Acute renal failure (6) Peripheral vascular disease (7) CKD (chronic kidney disease) stage 4, GFR 15-29 ml/min (8) Choledocholithiasis (9) Physical deconditioning (10) Sepsis (11) Ischemia of left lower extremity Symptom Scale: (1) Dyspnea 0-10 Scale: Unable to quantify (2) Pain 0-10 Scale: Unable to quantify (3) Debility 0-10 Scale: Unable to quantify Pertinent Non-Medical Issues Psychosocial: Patient originally from [facility]. Moved to [place] 6 years ago. He is , has 3 biological children. 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 No service. Spiritual: No protestant affiliation. Legal: Advance directives completed. Ethical issues impacting care: No ethical issues identified. . Important Contacts Sister/healthcare surrogate: Jennifer Galeas . Prognosis Mr. Bates is a 67-year-old male with a medical history significant for COPD, hypertension, CAD and peripheral vascular disease. Patient presented to ED via EMS on 10/28/17 for evaluation of shortness of breath and pain to his left leg. He was found with occlusion of left iliac artery, not a surgical candidate secondary to sepsis, pneumonia and respiratory failure. Clinical course complicated by acute on chronic renal failure, choledocholithiasis requiring biliary drain placement, retroperitoneal bleed with development of hemorrhagic shock. Patient remains in critical condition, high risk for further complications, decline and . Overall prognosis is guarded. . Code Status: Alternative Code Plan * CODE STATUS: Alternate code, intubation only. * HEALTHCARE DECISION-MAKING: Patient participating medical decision making, however, intermittent confusion secondary to encephalopathy/acute illness. Advanced directives completed, patient designated his sister Jennifer Galeas as healthcare surrogate decision maker. No alternate surrogate designated. Palliative care recommends shared decision making with patient and sister given intermittent confusion. In addition, patient appears to rely on sister for guidance. * GOALS OF CARE: Patient supported by Sister Jennifer electing continuation of aggressive management short of NO cardiac resuscitation. Patient and sister receptive to palliative care follow-up. * SYMPTOMS: = Dyspnea: Multifactorial secondary to COPD, acute illness, physical deconditioning, anemia -retroperitoneal hematoma. Currently on high flow o2 via NC. Currently on Solu-Medrol 40 mg every 8 hours. = Pain: Secondary to multiple lines, prolonged hospitalization/Bedrest. [place] 7.5/325 mg available as needed, pt denies pain. = Debility: Secondary to prolonged hospitalization and acute on chronic illness. Likely to continue to worsen. PT following, PT at rehab recommended. * Case discussed with bedside RN. * Palliative care contact information has been provided to patient and family. * Palliative care will continue to follow up for further clarification of goals of care as patient's clinical course continues to evolve. . Time Spent Total Floor Time (mins): 25 (Chart review, PE, discussion with family) Attestation To help prompt me to consider important information that might be impacting today's encounter and assessment, information from prior notes written by myself or my colleagues may have been "brought forward" into today's note. My signature on this note, however, is an attestation that I personally performed the exam, history, and/or decision-making noted today, and, unless otherwise indicated, the interactions with patient, family, and staff as well as the review of records all occurred today. I also attest that the listed assessment and stated plan reflect my best clinical judgment today based on the combination of historical information, prior notes, and today's exam/ interactions. When time spent is documented, it refers only to time spent today by the signer, or if indicated, combined time spent today by collaborating physician/nurse practitioner. Maria A Davis Nov 20, 2017 11:18
[2017-11-20] MEDS: FAMOTIDINE 20 MG TAB PO SCH ×2 (11:19→20:08)
[2017-11-20] MEDS: methylPREDNISolone SOD SUCC 40 MG/1 ML VIAL IV PUSH SCH ×2 (12:51→23:31)
--- NOTE | 2017-11-20 18:42 | HHI.CCPN ---
Subjective Remarks/Hospital Course 67-year-old male presents to the emergency department via EMS for evaluation of shortness of breath and pain and numbness to the left leg. Patient believes that he is shortness of breath is related to the pain in his leg. He cannot feel his leg from his groin down. He denies any history of the same. He does report history of COPD. He denies any known fevers or chills. He denies chest pain. Patient received 1 L normal saline bolus via EMS. Patient denies any history of bleeding or blood clots. No recent surgery or travel. No hemoptysis. No history of DVT/PE. He denies leg edema. Patient states the pain is 10/10 to the left leg. No exacerbating or alleviating factors. Moderate severity. 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 The right inflow is heavily diseased as well. The patient was evaluated by vascular surgeon threat monitoring analyst and was immediately started on heparin drip. SUBJ 10/29: Remains critically ill, encephalopathy. 4 out of 4 bottles positive for GNR. I will change Rocephin to Zosyn renally dosed to cover for Pseudomonas also. Continue azithromycin. Creatinine still elevated but slightly improved. WBC count slightly increased 17.2 now with 24% bands. Source of GNR sepsis could be either UTI or pneumonia. Will consult ID as well. Remains on IV heparin for acute left limb ischemia 10/30: platelets falling >50% again today. Cr still rising, but could be ATN/ contrast nephropathy. blood cultures growing e. coli by PCR, full speciation to follow. urine culture pending. discussed case with Dr. Lopez, will stop heparin , start argatroban and send HIT/CHARLEEN. denies complaints for me, but does have objective tenderness on palpation, RUQ. 10/31: Emergently intubated today a.m. by Dr. Puckett for worsening mental status, encephalopathy and worsening respiratory failure. Prior to intubation Dr. Puckett ' exam revealed right upper quadrant tenderness. Ultrasound of the gallbladder yesterday showed gallstones. Overnight Argatroban was supratherapeutic and was held, platelet count also dropped to 30,000, HIT screen is pending. Postintubation bilateral pupils are reactive but unequal. Will repeat CT of the head, CT abdomen pelvis. BUN 49/Creat 2.7, leukocytosis persisting 11/01: no improvements. ct abd/pelvis with evidence of possible choledocholithiasis. perc doug tube planned for this AM. on esmolol infusion for afib RVR. fio2 increased to 70%. 11/02: Sodium bicarbonate infusion continued per nephrology in the setting of rhabdomyolysis serial creatinine kinase pending. Cholecystostomy drain placement 100 cc overnight. Continued thrombocytopenia, CBC, serotonin release assay pending. Plan for reinitiation of heparin awaiting GI consultation for possible invasive procedures prior to restarting heparin. Patient sinus rhythm with occasional PAC's. 11/03: No acute events overnight. Sodium bicarbonate infusion discontinued this a.m. had any improved this a.m.. Chest x-ray showed worsening consolidation, FiO2 requirements were increased to 65% during the night. CPAP trials on hold currently. Biliary drainage from cholecystostomy tube revealing gram-negative rods. The patient continues on antibiotics. Bilateral dorsalis pedis pulses monophasic signals by Doppler. Heparin infusion reinitiated. 11/04: Sodium bicarbonate infusion discontinued at 7 AM yesterday. Chest x-ray worsening consolidation versus pleural effusions. FiO2 slightly decreased to 60 %, ABG improving. Pending quantification via ultrasound of pleural fluid in am. Lasix 40mg x1 additional dose provided today . PPN discontinued discussed with Dr. Colon tube feeds initiated at [facility]. Dietary consult ordered. 11/05: Afebrile. Patient tolerating tube feeds advanced to goal rate of 55 cc/ hr. chest x-ray with slight improvement FiO2 decreased to 55% ABG pending. Initiation of CPAP trial to be attempted today. 11/06: Late entry note. Patient seen at 628am. Patient was started on CPAP and continues on CPAP greater than 10 hours. Patient following commands, currently on Precedex infusion. 11/07: Patient remained on CPAP trials for approximately 12 hours yesterday and discontinued because of agitation. CPAP trials reinitiated this a.m. Patient complaint of sore throat Lortab ordered. Patient continues on Precedex for ventilator weaning process. Chest x-ray still shows pulmonary edema, additional dose Lasix 401 dose given this a.m.. When infusion continued, monophasic Doppler signals bilateral dorsalis pedal pulses noted. 11/08: Afebrile . Patient successfully extubated yesterday. Remains on O2 at 4 L nasal cannula O2 saturation 94-95%. Patient continues on heparin infusion, she was noted to have 9 BMs last evening plan for serial H&H's concern for possible stool with occult blood. Repeat stool for occult blood. Plan for possible bedside thoracentesis ,if respiratory requirements increase, currently on O2 4 L via nasal cannula in no apparent distress. 11/11 Late entry, notified of re-consult at 17:[address] Johnson, saw patient and immediately placed L IJ CVL because patient had ripped out an IV and had insufficient peripheral IV access given clinical condition. RN states patient had Hgb 7.5 this morning. Trend was unusual with Hb 8.3--> 12.5 (without transfusion)-->7.5 and lab recommended repeat. Repeat was drawn and was 4.2. Meanwhile, while awaiting re-draw patient became hypotensive, MAP down in the 40s, and was given albumin 25 gram IV. Now he has received 1 unit PRBC and BP improved to 120s/60s. Getting 2 additional units of PRBC stat. Nurse states heparin has been off since 12:30. Sending stat coags/fibrinogen. Patient denies nausea or vomiting. He has some right-sided abdominal pain. There is dark brown drainage from cholecystostomy tube. He has not had a bowel movement in 48 hours. No obvious evidence of GI bleeding. CT abdomen and pelvis has been ordered as "urgent", now giving additional PRBC and then will obtain stat. Gastroenterology has been following and I have notified them of the anemia, though this does not appear to be GI source at this time. 11/12 CT last night showed large retroperitoneal hematoma. Transfused total of 3 units PRBC yest evening. Hgb now 8.3. Coags/fibrinogen in acceptable range this morning, heparin drip off. Patient states much less abdominal pain today. He is alert and oriented now. Coughing, O2 requirement up to 6 L NC, afebrile. 11/13 Had some hemoptysis yesterday. CT with bilateral pleural effusions/ LLL atelectasis vs infiltrate. Now on 8 L SM, tachypneic with more labored breathing today. Edematous, will diurese. He is alert and capacitated currently and agrees to L pleural drainage. Transfused 1 unit PRBC yesterday for Hgb 7.4. He still has some Right sided abdominal pain 11/14: Resting in bed on simple facemask. Hemoglobin 6.9 this morning. Patient denies any worsening shortness of breath or chest pain. 1 unit PRBCs being transfused. Left-sided pigtail catheter placed 11/13 drain 650 cc 11/15 Remains on simple mask, breathing a little labored. L pigtail catheter output is serous, 270 last 24 hours. Planned to tap R pleural effusion but when performed u/s the fluid had decreased significantly and did not appear amenable to drainage; continue diuresis. Labs are pending, nurse is about to draw them. Afebrile 11/16 Diuresing, creatinine stable. On NC. Afebrile. L Chest tube output 220. Hgb 7.6 from 8.8. Transfusing 1 unit PRBC. Noted lipase 827. Patient denies n/v /abdominal tenderness. He says he is feeling "much better" and denies abd pain. 11/17 Chest tube removed yesterday without complication. Labored breathing when he got OOB overnight. He is tired of wearing simple mask so he wants to try HFNC. Depressed today, is worried his ERCP will get canceled. Wants to get out of the hospital. Case management working on transfer to [facility] when cleared following ERCP. 11/18 Patient is on high flow oxygen with 70% FIO2. For ERCP today. 11/19 No events overnight. ERCP wasn't done yesterday as patient is on high flow oxygen. Remains on 25L with 70% FIO2. Afebrile. Subjective: 11/20: no acute events. tolerating a diet. on high flow NC at 70% fio2. not dyspneic. Objective Vital Signs Date Time Temp Pulse Resp B/P (MAP) Pulse Ox O2 Delivery O2 Flow Rate FiO2 11/20/17 18:00 70 11/20/17 16:00 98.0 20 140/71 (94) 91 11/20/17 08:11 High Flow Nasal Cannula 25.00 70 Intake and Output 11/20/17 11/20/17 11/20/17 07:59 15:59 23:59 Intake Total 360 ml 750 ml Output Total 1310 ml 1000 ml Balance -950 ml -250 ml Result Diagram: 11/20/17 0635 11/20/17 0434 Imaging Last Impressions Chest X-Ray 11/18/17 Signed Impressions: CONCLUSION: Some improvement in the bibasilar infiltrates. Chest CT 11/12/17 Signed Impressions: CONCLUSION: 1. Bilateral pleural effusions left greater than right. Areas of infiltrate ve rsus atelectasis left lung base difficult to rule out a small superimposed pneu monia. 2. Dense coronary atherosclerotic disease. Abdomen/Pelvis CT 11/11/171852 Signed Impressions: CONCLUSION: 1. New complex fluid collection in the right-sided the abdomen which appears t o be extraperitoneal anterior to the right psoas muscle and displacing the righ t colon medially. Fluid collection measures up to 21 cm in length and 10.7 cm i n maximal diameter. Differential diagnosis includes hematoma or infection/absce ss. 2. Mild free fluid within the abdomen. 3. Mild anasarca. 4. Cholecystostomy tube in right upper quadrant without fluid directly around the gallbladder. 5. Small to moderate bilateral effusions with slight improvement in basilar mani ng consolidation since November 01. Chest Ultrasound 11/07/17 Signed Impressions: CONCLUSION: 1. Left-sided pleural effusion. Percutaneous Cholangiogram 11/01/17 Signed Impressions: CONCLUSION: 1. Uncomplicated percutaneous cholecystostomy as above. Renal Ultrasound 10/31/17 Signed Impressions: CONCLUSION: 1. No hydronephrosis. 2. Increased cortical echogenicity consistent with medical renal disease. Head Magnetic Resonance Angiography 10/31/17 Signed Impressions: CONCLUSION: 1. Unremarkable MRA of the brain. Head CT 10/31/17 Signed Impressions: CONCLUSION: 1. Negative CT Head non contrast. 2. No evidence of acute infarct, hemorrhage, mass or edema. Brain MRI 10/31/17 Signed Impressions: CONCLUSION: 1. Senescent changes with minimal periventricular ischemic white matter demyel ination. 2. No acute abnormality. Specifically, no acute infarction, mass or hemorrhage . Gall Bladder Ultrasound 10/30/17 Signed Impressions: CONCLUSION: 1. Fatty infiltration of the liver. 2. Multiple stones in the gallbladder. No biliary tract obstruction. Extremity Arterial Study 10/28/17 Signed Impressions: CONCLUSION: 1. Abnormal ABIs, left greater than right. The left DAVID is significantly dimin ished at 0.14. Aorta w/Runoff CTA 10/28/17 Signed Impressions: Service Date/Time: Saturday, October 28, 2017 21:50 - CONCLUSION: 1. Acute occlusion of the left inflow with concern for short segment occlusion involving the distal right inflow. This raises concern for an embolic event. 2. Right lower extremity shows scattered disease throughout the common femoral artery, SFA and [id number] popliteal artery with three-vessel runoff to the foot. 3. Left lower extremity with reconstitution of the common femoral artery with diseased out flow and two vessel runoff to the foot as detailed above. 4. 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 5. Hepatic steatosis. 6. Cholelithiasis. Juanjose Mckeon Jr., MD Objective Remarks GENERAL: middle-aged male, lying in bed, alert and conversant. SKIN: Warm and dry. HEAD: Normocephalic. ENT: + scleral icterus. No injection or drainage. Pupils are now equal at 3mm, reactive. On high flow NC. NECK: Supple, trachea midline. No JVD. CARDIOVASCULAR: Regular, rate in the 70s. sinus. RESPIRATORY: unlabored. fio2 70% high flow nc. no accessory muscle use. equal chest rise. GASTROINTESTINAL: Abdomen soft, mildly distended, no tenderness to palpation. bowel sounds present. Cholecystostomy tube is in place draining dark brown fluid. No flank hematoma. : Peña in place with light yellow urine output MUSCULOSKELETAL: No cyanosis, 1+ bipedal edema. Bilateral DP with Doppler pulses. Discoloration of left fifth toe. 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 NEURO EXAM: Eyes open, makes eye contact. Oriented to person, place, year. Moves all extremities with no focal deficit A/P Assessment and Plan ASSESSMENT/PLAN: NEURO: Acute metabolic encephalopathy, improved Awake and alert -Lortab as needed for pain -10/31 CT of the head- negative -10/31MRI minimal periventricular ischemic white matter change no acute abnormality RESP: COPD exacerbation, resolved Left lower lobe pneumonia, resolved ARDS, resolved Respiratory distress, improved. Bilateral pleural effusions. -Emergently intubated and placed on mechanical ventilation 10/31/2017. Extubated 11/07/17. Wean down oxygen as josiah keep sats >92% -L pigtail chest tube placed with initially 600 mL of serosanginous output. Respiratory status improved. pleural fluid culture negative,pathology pending. Chest tube removed 11/17 -U/s R pleural effusion on 11/15 - not amenable to drainage. Continue Symbicort 160/4.52 puffs inhaled every 12 hours Incentive spirometry every hour awake, Acapella. Continue Solumedrol to 40 mg IV q12 . Guaifenesin 600 mg p.o. twice daily CXR yesterday some improvements in bibasilar infiltrates Dr. Johnson following CVS: Hemorrhagic shock, resolved. Secondary to R retroperitoneal hematoma Lactic acidemia- resolved Acute on chronic left limb ischemia, improved Paroxysmal atrial fibrillation HTN -CTA showed severe aorto-iliac occlusive disease with left iliac thrombosis. Dr. Lopez evaluated, may need ax-fem bypass at some point but not during this hospitalization. -No longer a candidate for anticoagulation, ASA/Plavix recommended when patient stabilized. Now off antiplatelets both due to large RP bleed and now planned ERCP. GI requests antiplatets on hold at least 5 days for ERCP. after GI completes work-up, would re-initiate ASA. -Significant calcifications and peripheral vascular disease -2D echo: EF 50%, no significant valvular lesions. left sided pleural effusion -HIT screen negative. CHARLEEN -negative -Continue Cardizem 240 mg p.o. daily, Hydralazine 50mg Q8, Lopressor 50mg Q12 GI Acute hepatic dysfunction Hyperbilirubinemia Transaminitis Acute Choledocholithiasis R retroperitoneal hematoma -Trend LFTs. Lipase elevated but he is asymptomatic now. ERCP when O2 requirements is better - gallbladder ultrasound showed multiple gallstones -Retroperitoneal hematoma on 11/11 while on heparin drip, CT with large R retroperitoneal hematoma. Manage medically, - Gen Surgery following. -CT abdomen/pelvis 11/01: c/w choledocholithiasis - Perc cholecystostomy tube placed 11/01 by IR- Monitor drainage -Eventual cholecystectomy when stabilized. Dr. Martins has seen. FEN/RENAL Acute kidney injury- improving Monitor renal function, I/O's, electrolytes replacement as needed Continue diuresis with Lasix 40 mg IV q12. diamox 250mg iv x 1. Nephrology has signed off. ID E COLI bacteremia/severe sepsis, resolved Enterococcus in the urine: possible colonization vs. UTI. Acute Choledocholithiasis/ Cholangitis Biliary fluid gram-negative rods Cholecystostomy placed 11/01. Completed abx course per ID: Unasyn discontinued 11/13. Monitor for signs of infections ( Fever, WBC) HEME: Acute blood loss anemia overlying anemia of chronic disease acute thrombocytopenia: Initially consumptive secondary to sepsis earlier during admission then consumptive secondary to acute blood loss. - HIT negative. CHARLEEN negative 10/30. Heparin on hold since 11/11. Monitor coags, transfuse blood products as indicated. 3 units PRBC 11/11. 1 unit 11/12. 1 unit PRBCs ordered for hemoglobin 6.9 on 11/14. 1 unit PRBC 11/16 DVT GI prophylaxis -Vickey's and SCDs -Heparin infusion on hold due to bleeding/thrombocytopenia. ACCESS: . PIV Placed emergent left IJ central venous line 11/11-11/[address] Puckett: Patient states he agrees to reintubation if needed. In the setting of pulseless arrest he would not want CPR, shocks, intubation, ACLS drugs. CODE STATUS is alternate code intubation only. Patient's sister states that he has designated her as healthcare surrogate. He has advanced directives. Palliative care following. PT/OT Dispo: must remain in ICU due to high oxygen requirements. Didier Rahman MD Nov 20, 2017 18:42
[2017-11-20] MEDS: LACTULOSE SYRUP 20 GM/30 ML CUP PO PRN (20:18)
--- NOTE | 2017-11-20 20:46 | HHI.PR ---
Subjective Remarks 67 YOWM with COPD,Sepsis, ischemia of leg mild sob cough, occ sp No Fever Improvement in breathing on High Flow 02, Fi02 70%, 25L flow Appetite poor Objective Vital Signs Vital Signs Date Time Temp Pulse Resp B/P (MAP) Pulse Ox O2 Delivery O2 Flow Rate FiO2 11/20/17 19:48 97 High Flow Nasal Cannula 25.00 70 11/20/17 18:00 70 11/20/17 16:00 72 11/20/17 16:00 98.0 77 20 140/71 (94) 91 11/20/17 14:00 72 11/20/17 13:00 72 11/20/17 12:00 98.1 75 16 138/60 (86) 88 11/20/17 08:11 96 High Flow Nasal Cannula 25.00 70 11/20/17 08:00 77 11/20/17 08:00 98.2 61 16 128/60 (82) 88 11/20/17 07:00 91 Nasal Cannula 25.00 70 11/20/17 06:00 57 11/20/17 04:00 57 11/20/17 04:00 98.1 57 15 129/60 (83) 90 11/20/17 02:00 57 11/20/17 00:00 98.2 61 13 138/60 (86) 88 11/20/17 00:00 61 11/19/17 22:00 69 I/O 11/19/17 11/19/17 11/19/17 11/20/17 11/20/17 11/20/17 07:00 15:00 23:00 07:00 15:00 23:00 Intake Total 760 ml 650 ml 360 ml 750 ml Output Total 1350 ml 1115 ml 1310 ml 1000 ml Balance -590 ml -465 ml -950 ml -250 ml Intake Oral 500 ml 650 ml 360 ml 750 ml IV Total 260 ml Output Urine Total 1150 ml 985 ml 1200 ml 900 ml Drainage Total 200 ml 130 ml 110 ml 100 ml # Bowel Movements 0 0 0 Result Diagram: 11/20/17 0635 11/20/17 0434 Objective Remarks GENERAL: WBWN WM, mild sob SKIN: Warm and dry. HEAD: Normocephalic. EYES: No scleral icterus. No injection or drainage. NECK: Supple, trachea midline. No JVD or lymphadenopathy. CARDIOVASCULAR: Regular rate and rhythm without murmurs, gallops, or rubs. RESPIRATORY: Breath sounds equal bilaterally. No accessory muscle use. GASTROINTESTINAL: Abdomen soft, non-tender, nondistended. MUSCULOSKELETAL: No cyanosis, or edema. Cold left leg BACK: Nontender without obvious deformity. No CVA tenderness. A/P Assessment and Plan IMPRESSION: 1. Sepsis. 2. Chronic obstructive pulmonary disease, mild exacerbation. 3. Left basilar infiltrate. 4. Urinary tract infection 5. Encephalopathy. 6. Cold left leg.-resolved 7. Thrombocytopenia. 8. VDRF--extubated 11/07 9. Severe anemia, retroperitoneal bleed PLAN: Cont Abx per ID Monitor renal functions Supplement 02 with high flow 02 Encourage PO XU RN at BS Monitor H/H XU pt and his sister Dennis Johnson MD Nov 20, 2017 20:45
[2017-11-20] MEDS: MAGNESIUM HYDROXIDE SUSP 30 ML CUP PO PRN (23:32)
[2017-11-21] VITALS (14 sets, daily range): BP systolic 121–140; BP diastolic 56–79; PULSE 56–71; RESP 14–20; TEMP 97.8–98.3; O2SAT 92–96
[2017-11-21] MEDS: RESP: ALBUTEROL 2.5 MG/IPRATROPIUM 0.5 MG NEB (SCH) NEB ×6 (03:32→23:17)
[2017-11-21] MEDS: CHLORHEXIDINE GLUCONATE 2 % 1 PACK (2 CLOTHS) TOP SCH (04:00)
[2017-11-21] MEDS: hydrALAZINE HCL 50 MG TAB PO SCH ×3 (05:56→20:20)
[2017-11-21] MEDS: CHLORHEXIDINE 0.12% (ORAL KIT) 15 ML CUP MT SCH ×2 (08:00→20:00)
[2017-11-21] MEDS: METOPROLOL TARTRATE 50 MG TAB PO SCH ×2 (08:16→20:21)
[2017-11-21] MEDS: DILTIAZEM-CD 240 MG CAP ER PO SCH (08:16)
[2017-11-21] MEDS: MAGNESIUM HYDROXIDE SUSP 30 ML CUP PO PRN ×2 (08:16→20:20)
[2017-11-21] MEDS: LACTULOSE SYRUP 20 GM/30 ML CUP PO PRN ×2 (08:16→20:20)
[2017-11-21] MEDS: NYSTATIN SUSP 500,000 U/5 ML CUP SWISH-SWAL SCH ×4 (08:16→20:20)
[2017-11-21] MEDS: FAMOTIDINE 20 MG TAB PO SCH ×2 (08:16→20:20)
[2017-11-21] MEDS: FUROSEMIDE 40 MG/4 ML VIAL IV PUSH SCH ×2 (08:16→20:20)
[2017-11-21] MEDS: guaiFENesin E.R. 600 MG TAB PO SCH ×2 (08:16→20:20)
[2017-11-21] MEDS: BUDESONIDE-FORMOTEROL 160/4.5 MCG INHALER INH SCH ×2 (08:16→20:20)
[2017-11-21] MEDS: SODIUM CHLORIDE 0.9% FLUSH 10 ML FLUSH IV FLUSH SCH ×2 (08:16→20:21)
--- NOTE | 2017-11-21 11:42 | HHI.HCPN ---
Palliative care continues to follow Mr. Bates to assist with symptom management and ongoing support for patient and family. No family at bedside. Mr. Bates is currently sitting up in stretcher chair waiting television. Reports he is not feeling well today, further elaborates that he has been having gas pain for the past 2 days. States medications have been provided but "nothing has happened". Welcomes adjustments to provide symptom relief. States he is going for a CT scan today. He denies any questions or concerns at this time. States his sister will be in later today to visit. Palliative care will continue to follow throughout hospitalization. Kimber Mckeon, [employer]VIS[employer] ORTHODONTIST Nov 21, 2017 11:42
[2017-11-21] MEDS: methylPREDNISolone SOD SUCC 40 MG/1 ML VIAL IV PUSH SCH ×2 (11:55→23:43)
--- NOTE | 2017-11-21 14:03 | RADRPT ---
EXAM DATE: 11/21/2017 1:54 PM EDT AGE/SEX: 67 years / Male INDICATIONS: Follow up retroperitoneal hematoma. CLINICAL DATA: This is the patient's subsequent encounter. Patient reports that signs and symptoms h ave been present for 1 day and indicates a pain score of 5/10. MEDICAL/SURGICAL HISTORY: Chronic obstructive pulmonary disease. Umbilical hernia repair. RADIATION DOSE: 15.84 CTDI (mGy) COMPARISON: [facility] [place], CT ABDOMEN & PELVIS W/O CONTRAST, 11/11/2017. . TECHNIQUE: Multiple contiguous axial images were obtained through the abdomen. Images were obtained using multiple row detector helical technique. Using dose reduction techniques, radiation dose was ke pt as low as reasonably achievable to obtain optimal diagnostic quality images. FINDINGS: The retroperitoneal hematoma on the right is smaller from the prior examination. It previously measur ed 21 x 11 x 12 cm and now measures 21 x 8 x 11 cm. No acute hemorrhage appreciated. A drainage russel ter is seen within the gallbladder fossa and the gallbladder is totally decompressed. This is stable in appearance from the prior study. No biliary dilatation. A 3 mm nonobstructing left renal stone not ed. Bibasilar areas of consolidation affecting the left lower lobe to a greater degree than the right . This is stable. The left effusion is smaller from the prior exam. The right effusion is stable. Col onic diverticuli without acute abnormality. CONCLUSION: 1. The retroperitoneal hematoma on the right is smaller from the prior study. 2. Drainage catheter within the right upper quadrant felt to relate to a cholecystostomy tube. No bi liary dilatation. 3. Nonobstructing left renal stone. 4. Colonic diverticulosis. 5. Improving left effusion with unchanged right effusion. 6. Bibasilar consolidation appears stable. Electronically signed by: Juanjose Mckeon MD 11/21/2017 2:01 PM EDT
[2017-11-21] MEDS: BISACODYL 10 MG SUPP RECTAL PRN (15:53)
--- NOTE | 2017-11-21 16:03 | HHI.PR ---
Subjective Remarks 67 YOWM with COPD,Sepsis, ischemia of leg mild sob cough, occ sp No Fever Improvement in breathing on High Flow 02, Fi02 70%, 25L flow Appetite poor had abd discomfort, CT abd normal Objective Vital Signs Vital Signs Date Time Temp Pulse Resp B/P (MAP) Pulse Ox O2 Delivery O2 Flow Rate FiO2 11/21/17 14:00 61 11/21/17 12:00 70 11/21/17 12:00 98.2 71 19 139/79 (99) 94 11/21/17 10:00 63 11/21/17 08:00 98.0 63 14 121/56 (77) 95 11/21/17 08:00 61 11/21/17 07:54 94 High Flow Nasal Cannula 25.00 80 11/21/17 07:00 88 Nasal Cannula 25.00 80 11/21/17 06:00 59 11/21/17 04:00 98.3 62 20 126/59 (81) 94 11/21/17 04:00 62 11/21/17 02:00 56 11/21/17 00:00 59 11/21/17 00:00 98.3 59 15 130/59 (82) 93 11/20/17 22:00 64 11/20/17 20:00 98.1 66 21 144/67 (92) 90 11/20/17 20:00 66 11/20/17 19:48 97 High Flow Nasal Cannula 25.00 70 11/20/17 19:00 91 Nasal Cannula 25.00 70 11/20/17 18:00 70 I/O 11/20/17 11/20/17 11/20/17 11/21/17 11/21/17 11/21/17 07:00 15:00 23:00 07:00 15:00 23:00 Intake Total 360 ml 750 ml 240 ml Output Total 1310 ml 1000 ml 1555 ml Balance -950 ml -250 ml -1315 ml Intake Oral 360 ml 750 ml 240 ml Output Urine Total 1200 ml 900 ml 1475 ml Drainage Total 110 ml 100 ml 80 ml # Bowel Movements 0 0 Result Diagram: 11/20/17 0635 11/20/17 0434 Objective Remarks GENERAL: WBWN WM, mild sob SKIN: Warm and dry. HEAD: Normocephalic. EYES: No scleral icterus. No injection or drainage. NECK: Supple, trachea midline. No JVD or lymphadenopathy. CARDIOVASCULAR: Regular rate and rhythm without murmurs, gallops, or rubs. RESPIRATORY: Breath sounds equal bilaterally. No accessory muscle use. GASTROINTESTINAL: Abdomen soft, non-tender, nondistended. MUSCULOSKELETAL: No cyanosis, or edema. Cold left leg BACK: Nontender without obvious deformity. No CVA tenderness. A/P Assessment and Plan IMPRESSION: 1. Sepsis. 2. Chronic obstructive pulmonary disease, mild exacerbation. 3. Left basilar infiltrate. 4. Urinary tract infection 5. Encephalopathy. 6. Cold left leg.-resolved 7. Thrombocytopenia. 8. VDRF--extubated 11/07 9. Severe anemia, retroperitoneal bleed PLAN: Cont Abx per ID Monitor renal functions Supplement 02 with high flow 02 Encourage PO XU RN at BS Monitor H/H Dennis Johnson MD Nov 21, 2017 16:03
--- NOTE | 2017-11-21 16:04 | HHI.HCPN ---
Reason for visit a. To assist with evaluation and management of symptoms including: Shortness of breath, pain, debility. b. To assist medical decision maker(s) with: better understanding of current medical conditions; weighing benefits/burdens of medical treatment options; making medical treatment decisions. . (Rocio Aguiar) Subjective/Interval History Pt seen today to follow up abd discomfort, constipation, dyspnea. He remains in ICU, on high flow NC O2- 80%. 11/21 CT shows improving left pleural effusion, stable consolidation, right pleural effusion, improvement retroperitoneal hematoma, gallbladder decompressed. LFTs stable. Abd is distended, no BM 8 days. SOB to conversation. Dual visit with MARTINA Davis. Patient seen in room no visitors present. In bed, was napping when we entered. Complains of diffuse abd discomfort. Has BID shawn- colace ordered but this has not been given since 11/08. Had PRN Senna 11/20. Had PRN lactulose 11/21. Has PRN bisacodyl ordered but this has not been given. Denies flatus. Denies n/v. Good appetite. Denies dyspnea. Discussed with him recent imaging, continued need for high flow o2 and that his respiratory status may not improve greatly. Still unclear what degree of insight he has on his condition, his responses were limited. (Rocio Aguiar) Advance Directives Living Will: Copy in medical record Health Care Surrogate: Copy in medical record (Rocio Aguiar) Advance Directive Specifics Date completed: 10/27/2012. . Health Care Surrogate(s): Patient electing sister Jennifer Galeas as healthcare surrogate decision maker. No alternate surrogates. . Documented care wishes: Living will with standard verbiage as it pertains to terminal condition, end- stage condition or persistent vegetative state. . (Rocio Aguiar) Objective Vital Signs Date Time Temp Pulse Resp B/P (MAP) Pulse Ox O2 Delivery O2 Flow Rate FiO2 11/21/17 14:00 61 11/21/17 12:00 70 11/21/17 12:00 98.2 71 19 139/79 (99) 94 11/21/17 10:00 63 11/21/17 08:00 98.0 63 14 121/56 (77) 95 11/21/17 08:00 61 11/21/17 07:54 94 High Flow Nasal Cannula 25.00 80 11/21/17 07:00 88 Nasal Cannula 25.00 80 11/21/17 06:00 59 11/21/17 04:00 98.3 62 20 126/59 (81) 94 11/21/17 04:00 62 11/21/17 02:00 56 11/21/17 00:00 59 11/21/17 00:00 98.3 59 15 130/59 (82) 93 11/20/17 22:00 64 11/20/17 20:00 98.1 66 21 144/67 (92) 90 11/20/17 20:00 66 11/20/17 19:48 97 High Flow Nasal Cannula 25.00 70 11/20/17 19:00 91 Nasal Cannula 25.00 70 11/20/17 18:00 70 11/20/17 16:00 72 11/20/17 16:00 98.0 77 20 140/71 (94) 91 Intake & Output 11/21/17 11/21/17 07:00 19:00 Intake Total 240 ml Output Total 1555 ml Balance -1315 ml Intake Oral 240 ml Output Urine Total 1475 ml Drainage Total 80 ml # Bowel Movements 0 Physical Exam CONSTITUTIONAL/GENERAL: This is an adequately nourished patient, resting in bed TUBES/LINES/DRAINS: High flow NC, PIV's, biliary drain, Peña catheter, SCD on LLE. SKIN: Dusky. + icterus. No rashes, or lesions. multiple areas of ecchymoses on bilateral upper extremities, slight edema left hand. CARDIOVASCULAR: RRR. Warm bilateral extremities, no cyanosis noted. RESPIRATORY/CHEST: mildly short of breath with conversation. + on high flow NC O2 70%. Rhonchi noted. mildly Tachypneic. GASTROINTESTINAL: Abdomen obese, distended, semifirm, tympanitic. drain right quadrant- draining brownish yellow liq. BS present. GENITOURINARY: Peña catheter in place, dark orange urine MUSCULOSKELETAL: Extremities without clubbing, cyanosis. +1 pitting edema BLE NEUROLOGICAL: Alert oriented x2-3 , forgetful at times. cooperative, moves all 4 extremeties PSYCHIATRIC: No depression or anxiety or hallucinations evident . (Rocio Aguiar) Diagnostic Tests Laboratory Laboratory Tests Test 6/12/18 05:23 11/19/17 10:30 11/20/17 04:34 11/20/17 06:35 Blood Urea Nitrogen 33 MG/DL (7-18) 35 MG/DL (7-18) Creatinine 0.82 MG/DL (0.60-1.30) 0.83 MG/DL (0.60-1.30) Random Glucose 98 MG/DL (74-106) 146 MG/DL (74-106) Total Protein 5.4 GM/DL (6.4-8.2) 5.1 GM/DL (6.4-8.2) Albumin 3.0 GM/DL (3.4-5.0) 2.8 GM/DL (3.4-5.0) Calcium Level 7.4 MG/DL (8.5-10.1) 7.4 MG/DL (8.5-10.1) Phosphorus Level 3.6 MG/DL (2.5-4.9) Magnesium Level 2.2 MG/DL (1.5-2.5) Alkaline Phosphatase 55 U/L (45-117) 60 U/L (45-117) Aspartate Amino Transf (AST/SGOT) 34 U/L (15-37) 24 U/L (15-37) Alanine Aminotransferase (ALT/SGPT) 87 U/L (12-78) 80 U/L (12-78) Total Bilirubin 7.2 MG/DL (0.2-1.0) 5.5 MG/DL (0.2-1.0) Sodium Level 143 MEQ/L (136-145) 142 MEQ/L (136-145) Potassium Level 4.1 MEQ/L (3.5-5.1) 3.7 MEQ/L (3.5-5.1) Chloride Level 109 MEQ/L (98-107) 106 MEQ/L (98-107) Carbon Dioxide Level 23.8 MEQ/L (21.0-32.0) 26.6 MEQ/L (21.0-32.0) Anion Gap 10 MEQ/L (5-15) 9 MEQ/L (5-15) Estimat Glomerular Filtration Rate 93 ML/MIN (>89) 92 ML/MIN (>89) Protein Corrected Calcium 8.3 MG/DL (8.5-10.1) 8.5 MG/DL (8.5-10.1) White Blood Count 9.3 TH/MM3 (4.0-11.0) 6.6 TH/MM3 (4.0-11.0) Red Blood Count 2.84 MIL/MM3 (4.50-5.90) 2.73 MIL/MM3 (4.50-5.90) Hemoglobin 8.9 GM/DL (13.0-17.0) 8.6 GM/DL (13.0-17.0) Hematocrit 26.5 % (39.0-51.0) 25.5 % (39.0-51.0) Mean Corpuscular Volume 93.3 FL (80.0-100.0) 93.4 FL (80.0-100.0) Mean Corpuscular Hemoglobin 31.3 PG (27.0-34.0) 31.4 PG (27.0-34.0) Mean Corpuscular Hemoglobin Concent 33.5 % (32.0-36.0) 33.7 % (32.0-36.0) Red Cell Distribution Width 18.6 % (11.6-17.2) 18.4 % (11.6-17.2) Platelet Count 76 TH/MM3 (150-450) 74 TH/MM3 (150-450) Mean Platelet Volume 10.8 FL (7.0-11.0) 10.8 FL (7.0-11.0) Neutrophils (%) (Auto) 96.7 % (16.0-70.0) 96.0 % (16.0-70.0) Lymphocytes (%) (Auto) 1.3 % (9.0-44.0) 1.3 % (9.0-44.0) Monocytes (%) (Auto) 1.9 % (0.0-8.0) 2.5 % (0.0-8.0) Eosinophils (%) (Auto) 0.0 % (0.0-4.0) 0.0 % (0.0-4.0) Basophils (%) (Auto) 0.1 % (0.0-2.0) 0.2 % (0.0-2.0) Neutrophils # (Auto) 8.9 TH/MM3 (1.8-7.7) 6.3 TH/MM3 (1.8-7.7) Lymphocytes # (Auto) 0.1 TH/MM3 (1.0-4.8) 0.1 TH/MM3 (1.0-4.8) Monocytes # (Auto) 0.2 TH/MM3 (0-0.9) 0.2 TH/MM3 (0-0.9) Eosinophils # (Auto) 0.0 TH/MM3 (0-0.4) 0.0 TH/MM3 (0-0.4) Basophils # (Auto) 0.0 TH/MM3 (0-0.2) 0.0 TH/MM3 (0-0.2) CBC Comment AUTO DIFF AUTO DIFF Differential Comment AUTO DIFF CONFIRMED AUTO DIFF CONFIRMED Platelet Estimate LOW (NORMAL) LOW (NORMAL) Platelet Morphology Comment NORMAL (NORMAL) NORMAL (NORMAL) (Rocio Aguiar) Result Diagram: 11/20/17 0635 11/20/17 0434 Procedures * 10/31/17: Endotracheal intubation * 11/01/17: Biliary drain placement * 11/07/17: Extubation * 11/13/17: Left-sided pigtail chest tube * 11/17/17: chest tube removed . (Rocio Aguiar) Assessment and Plan Disease Oriented Problem List: (1) COPD (chronic obstructive pulmonary disease) (2) Pneumonia (3) Retroperitoneal bleed (4) Acute blood loss anemia (5) Acute renal failure (6) Peripheral vascular disease (7) CKD (chronic kidney disease) stage 4, GFR 15-29 ml/min (8) Choledocholithiasis (9) Physical deconditioning (10) Sepsis (11) Ischemia of left lower extremity Symptom Scale: (1) Dyspnea 0-10 Scale: Unable to quantify (2) Pain 0-10 Scale: Unable to quantify (3) Debility 0-10 Scale: Unable to quantify (4) Constipation 0-10 Scale: Unable to quantify Pertinent Non-Medical Issues Psychosocial: Patient originally from [facility]. Moved to [place] 6 years ago. He is , has 3 biological children. 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 No service. Spiritual: No baptism affiliation. Legal: Advance directives completed. Ethical issues impacting care: No ethical issues identified. . Important Contacts Sister/healthcare surrogate: Jennifer Galeas . Prognosis Mr. Bates is a 67-year-old male with a medical history significant for COPD, hypertension, CAD and peripheral vascular disease. Patient presented to ED via EMS on 10/28/17 for evaluation of shortness of breath and pain to his left leg. He was found with occlusion of left iliac artery, not a surgical candidate secondary to sepsis, pneumonia and respiratory failure. Clinical course complicated by acute on chronic renal failure, choledocholithiasis requiring biliary drain placement, retroperitoneal bleed with development of hemorrhagic shock. Patient remains in critical condition, high risk for further complications, decline and . Overall prognosis is guarded. . Code Status: Alternative Code Plan * CODE STATUS: Alternate code, intubation only. * HEALTHCARE DECISION-MAKING: Patient participating medical decision making, however, intermittent confusion secondary to encephalopathy/acute illness. Advanced directives completed, patient designated his sister Jennifer Galeas as healthcare surrogate decision maker. No alternate surrogate designated. Palliative care recommends shared decision making with patient and sister given intermittent confusion. In addition, patient appears to rely on sister for guidance. * GOALS OF CARE: Patient supported by Sister Jennifer electing continuation of aggressive management short of NO cardiac resuscitation. Patient and sister receptive to palliative care follow-up. * SYMPTOMS: * = Dyspnea: Multifactorial secondary to COPD, acute illness, physical deconditioning, anemia -retroperitoneal hematoma. Currently on high flow o2 via NC. CT showing improvement left pleural effusion, unchanged bibasilar consolidation, unchanged right pleural effusion. Currently on Solu-Medrol 40 mg every 12 hours. * = Pain: Secondary to multiple lines, prolonged hospitalization/Bedrest. pt c/ o abd pain. [place] 7.5/325 mg available as needed. * = Debility: Secondary to prolonged hospitalization and acute on chronic illness. Likely to continue to worsen. PT following, PT at rehab recommended. * = constipation: ?ileus. Denies flatus. No BM 8 days. BS +. CT showed decompressed GB. Had lactulose this am, senna yesterday. Recommend repeat use PRN Senna, dulcolax. If no BM, consider enema tomorrow, KUB. d/w RN * Palliative care will continue to follow up for further clarification of goals of care as patient's clinical course continues to evolve. (Rocio Aguiar) Attestation To help prompt me to consider important information that might be impacting today's encounter and assessment, information from prior notes written by myself or my colleagues may have been "brought forward" into today's note. My signature on this note, however, is an attestation that I personally performed the exam, history, and/or decision-making noted today, and, unless otherwise indicated, the interactions with patient, family, and staff as well as the review of records all occurred today. I also attest that the listed assessment and stated plan reflect my best clinical judgment today based on the combination of historical information, prior notes, and today's exam/ interactions. When time spent is documented, it refers only to time spent today by the signer, or if indicated, combined time spent today by collaborating physician/nurse practitioner. (Rocio Aguiar) Collaborating MD Comments dual visit shanita MACK, concur with above documentation, assessments (Maria A Davis) Rocio Aguiar Nov 21, 2017 16:04 Maria A Davis Nov 22, 2017 09:54
--- NOTE | 2017-11-21 18:06 | HHI.CCPN ---
Subjective Remarks/Hospital Course 67-year-old male presents to the emergency department via EMS for evaluation of shortness of breath and pain and numbness to the left leg. Patient believes that he is shortness of breath is related to the pain in his leg. He cannot feel his leg from his groin down. He denies any history of the same. He does report history of COPD. He denies any known fevers or chills. He denies chest pain. Patient received 1 L normal saline bolus via EMS. Patient denies any history of bleeding or blood clots. No recent surgery or travel. No hemoptysis. No history of DVT/PE. He denies leg edema. Patient states the pain is 10/10 to the left leg. No exacerbating or alleviating factors. Moderate severity. 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 The right inflow is heavily diseased as well. The patient was evaluated by vascular surgeon product inspection supervisor and was immediately started on heparin drip. SUBJ 10/29: Remains critically ill, encephalopathy. 4 out of 4 bottles positive for GNR. I will change Rocephin to Zosyn renally dosed to cover for Pseudomonas also. Continue azithromycin. Creatinine still elevated but slightly improved. WBC count slightly increased 17.2 now with 24% bands. Source of GNR sepsis could be either UTI or pneumonia. Will consult ID as well. Remains on IV heparin for acute left limb ischemia 10/30: platelets falling >50% again today. Cr still rising, but could be ATN/ contrast nephropathy. blood cultures growing e. coli by PCR, full speciation to follow. urine culture pending. discussed case with Dr. Lopez, will stop heparin , start argatroban and send HIT/CHARLEEN. denies complaints for me, but does have objective tenderness on palpation, RUQ. 10/31: Emergently intubated today a.m. by Dr. Puckett for worsening mental status, encephalopathy and worsening respiratory failure. Prior to intubation Dr. Puckett ' exam revealed right upper quadrant tenderness. Ultrasound of the gallbladder yesterday showed gallstones. Overnight Argatroban was supratherapeutic and was held, platelet count also dropped to 30,000, HIT screen is pending. Postintubation bilateral pupils are reactive but unequal. Will repeat CT of the head, CT abdomen pelvis. BUN 49/Creat 2.7, leukocytosis persisting 11/01: no improvements. ct abd/pelvis with evidence of possible choledocholithiasis. perc doug tube planned for this AM. on esmolol infusion for afib RVR. fio2 increased to 70%. 11/02: Sodium bicarbonate infusion continued per nephrology in the setting of rhabdomyolysis serial creatinine kinase pending. Cholecystostomy drain placement 100 cc overnight. Continued thrombocytopenia, CBC, serotonin release assay pending. Plan for reinitiation of heparin awaiting GI consultation for possible invasive procedures prior to restarting heparin. Patient sinus rhythm with occasional PAC's. 11/03: No acute events overnight. Sodium bicarbonate infusion discontinued this a.m. had any improved this a.m.. Chest x-ray showed worsening consolidation, FiO2 requirements were increased to 65% during the night. CPAP trials on hold currently. Biliary drainage from cholecystostomy tube revealing gram-negative rods. The patient continues on antibiotics. Bilateral dorsalis pedis pulses monophasic signals by Doppler. Heparin infusion reinitiated. 11/04: Sodium bicarbonate infusion discontinued at 7 AM yesterday. Chest x-ray worsening consolidation versus pleural effusions. FiO2 slightly decreased to 60 %, ABG improving. Pending quantification via ultrasound of pleural fluid in am. Lasix 40mg x1 additional dose provided today . PPN discontinued discussed with Dr. Colon tube feeds initiated at [facility]. Dietary consult ordered. 11/05: Afebrile. Patient tolerating tube feeds advanced to goal rate of 55 cc/ hr. chest x-ray with slight improvement FiO2 decreased to 55% ABG pending. Initiation of CPAP trial to be attempted today. 11/06: Late entry note. Patient seen at 628am. Patient was started on CPAP and continues on CPAP greater than 10 hours. Patient following commands, currently on Precedex infusion. 11/07: Patient remained on CPAP trials for approximately 12 hours yesterday and discontinued because of agitation. CPAP trials reinitiated this a.m. Patient complaint of sore throat Lortab ordered. Patient continues on Precedex for ventilator weaning process. Chest x-ray still shows pulmonary edema, additional dose Lasix 401 dose given this a.m.. When infusion continued, monophasic Doppler signals bilateral dorsalis pedal pulses noted. 11/08: Afebrile . Patient successfully extubated yesterday. Remains on O2 at 4 L nasal cannula O2 saturation 94-95%. Patient continues on heparin infusion, she was noted to have 9 BMs last evening plan for serial H&H's concern for possible stool with occult blood. Repeat stool for occult blood. Plan for possible bedside thoracentesis ,if respiratory requirements increase, currently on O2 4 L via nasal cannula in no apparent distress. 11/11 Late entry, notified of re-consult at 17:[address] Johnson, saw patient and immediately placed L IJ CVL because patient had ripped out an IV and had insufficient peripheral IV access given clinical condition. RN states patient had Hgb 7.5 this morning. Trend was unusual with Hb 8.3--> 12.5 (without transfusion)-->7.5 and lab recommended repeat. Repeat was drawn and was 4.2. Meanwhile, while awaiting re-draw patient became hypotensive, MAP down in the 40s, and was given albumin 25 gram IV. Now he has received 1 unit PRBC and BP improved to 120s/60s. Getting 2 additional units of PRBC stat. Nurse states heparin has been off since 12:30. Sending stat coags/fibrinogen. Patient denies nausea or vomiting. He has some right-sided abdominal pain. There is dark brown drainage from cholecystostomy tube. He has not had a bowel movement in 48 hours. No obvious evidence of GI bleeding. CT abdomen and pelvis has been ordered as "urgent", now giving additional PRBC and then will obtain stat. Gastroenterology has been following and I have notified them of the anemia, though this does not appear to be GI source at this time. 11/12 CT last night showed large retroperitoneal hematoma. Transfused total of 3 units PRBC yest evening. Hgb now 8.3. Coags/fibrinogen in acceptable range this morning, heparin drip off. Patient states much less abdominal pain today. He is alert and oriented now. Coughing, O2 requirement up to 6 L NC, afebrile. 11/13 Had some hemoptysis yesterday. CT with bilateral pleural effusions/ LLL atelectasis vs infiltrate. Now on 8 L SM, tachypneic with more labored breathing today. Edematous, will diurese. He is alert and capacitated currently and agrees to L pleural drainage. Transfused 1 unit PRBC yesterday for Hgb 7.4. He still has some Right sided abdominal pain 11/14: Resting in bed on simple facemask. Hemoglobin 6.9 this morning. Patient denies any worsening shortness of breath or chest pain. 1 unit PRBCs being transfused. Left-sided pigtail catheter placed 11/13 drain 650 cc 11/15 Remains on simple mask, breathing a little labored. L pigtail catheter output is serous, 270 last 24 hours. Planned to tap R pleural effusion but when performed u/s the fluid had decreased significantly and did not appear amenable to drainage; continue diuresis. Labs are pending, nurse is about to draw them. Afebrile 11/16 Diuresing, creatinine stable. On NC. Afebrile. L Chest tube output 220. Hgb 7.6 from 8.8. Transfusing 1 unit PRBC. Noted lipase 827. Patient denies n/v /abdominal tenderness. He says he is feeling "much better" and denies abd pain. 11/17 Chest tube removed yesterday without complication. Labored breathing when he got OOB overnight. He is tired of wearing simple mask so he wants to try HFNC. Depressed today, is worried his ERCP will get canceled. Wants to get out of the hospital. Case management working on transfer to [facility] when cleared following ERCP. 11/18 Patient is on high flow oxygen with 70% FIO2. For ERCP today. 11/19 No events overnight. ERCP wasn't done yesterday as patient is on high flow oxygen. Remains on 25L with 70% FIO2. Afebrile. 11/20: no acute events. tolerating a diet. on high flow NC at 70% fio2. not dyspneic. Subjective: 11/21: repeat CT abd/pelvis with interval decrease in size of hematoma. no other changes. remains on HFNC despite diuresis. Objective Vital Signs Date Time Temp Pulse Resp B/P (MAP) Pulse Ox O2 Delivery O2 Flow Rate FiO2 11/21/17 16:00 61 11/21/17 16:00 97.8 15 140/63 (88) 96 11/21/17 07:54 High Flow Nasal Cannula 25.00 80 Intake and Output 11/21/17 11/21/17 11/21/17 07:59 15:59 23:59 Intake Total 240 ml Output Total 1555 ml Balance -1315 ml Result Diagram: 11/20/17 0635 11/20/17 0434 Imaging Last Impressions Chest X-Ray 11/18/17 Signed Impressions: CONCLUSION: Some improvement in the bibasilar infiltrates. Chest CT 11/12/17 Signed Impressions: CONCLUSION: 1. Bilateral pleural effusions left greater than right. Areas of infiltrate ve rsus atelectasis left lung base difficult to rule out a small superimposed pneu monia. 2. Dense coronary atherosclerotic disease. Abdomen/Pelvis CT 11/11/171852 Signed Impressions: CONCLUSION: 1. New complex fluid collection in the right-sided the abdomen which appears t o be extraperitoneal anterior to the right psoas muscle and displacing the righ t colon medially. Fluid collection measures up to 21 cm in length and 10.7 cm i n maximal diameter. Differential diagnosis includes hematoma or infection/absce ss. 2. Mild free fluid within the abdomen. 3. Mild anasarca. 4. Cholecystostomy tube in right upper quadrant without fluid directly around the gallbladder. 5. Small to moderate bilateral effusions with slight improvement in basilar mani ng consolidation since November 01. Chest Ultrasound 11/07/17 Signed Impressions: CONCLUSION: 1. Left-sided pleural effusion. Percutaneous Cholangiogram 11/01/17 Signed Impressions: CONCLUSION: 1. Uncomplicated percutaneous cholecystostomy as above. Renal Ultrasound 10/31/17 Signed Impressions: CONCLUSION: 1. No hydronephrosis. 2. Increased cortical echogenicity consistent with medical renal disease. Head Magnetic Resonance Angiography 10/31/17 Signed Impressions: CONCLUSION: 1. Unremarkable MRA of the brain. Head CT 10/31/17 Signed Impressions: CONCLUSION: 1. Negative CT Head non contrast. 2. No evidence of acute infarct, hemorrhage, mass or edema. Brain MRI 10/31/17 Signed Impressions: CONCLUSION: 1. Senescent changes with minimal periventricular ischemic white matter demyel ination. 2. No acute abnormality. Specifically, no acute infarction, mass or hemorrhage . Gall Bladder Ultrasound 10/30/17 Signed Impressions: CONCLUSION: 1. Fatty infiltration of the liver. 2. Multiple stones in the gallbladder. No biliary tract obstruction. Extremity Arterial Study 10/28/17 Signed Impressions: CONCLUSION: 1. Abnormal ABIs, left greater than right. The left DAVID is significantly dimin ished at 0.14. Aorta w/Runoff CTA 10/28/17 0000 Signed Impressions: Service Date/Time: Saturday, October 28, 2017 21:50 - CONCLUSION: 1. Acute occlusion of the left inflow with concern for short segment occlusion involving the distal right inflow. This raises concern for an embolic event. 2. Right lower extremity shows scattered disease throughout the common femoral artery, SFA and [id number] popliteal artery with three-vessel runoff to the foot. 3. Left lower extremity with reconstitution of the common femoral artery with diseased out flow and two vessel runoff to the foot as detailed above. 4. 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 5. Hepatic steatosis. 6. Cholelithiasis. Juanjose Mckeon Jr., MD Objective Remarks GENERAL: middle-aged male, lying in bed, alert and conversant. SKIN: Warm and dry. HEAD: Normocephalic. ENT: + scleral icterus. No injection or drainage. Pupils are now equal at 3mm, reactive. On high flow NC. NECK: Supple, trachea midline. No JVD. CARDIOVASCULAR: Regular, rate in the 70s. sinus. RESPIRATORY: unlabored. fio2 70% high flow nc. no accessory muscle use. equal chest rise. GASTROINTESTINAL: Abdomen soft, mildly distended, no tenderness to palpation. bowel sounds present. Cholecystostomy tube is in place draining dark brown fluid. No flank hematoma. : Peña in place with light yellow urine output MUSCULOSKELETAL: No cyanosis, 1+ bipedal edema. Bilateral DP with Doppler pulses. Discoloration of left fifth toe. Bruising of right distal forearm and ecchymosis finger tips of right hand with 1+ right hand edema, palpable radial pulse and good cuff slitter. NEURO EXAM: Eyes open, makes eye contact. Oriented to person, place, year. Moves all extremities with no focal deficit A/P Assessment and Plan ASSESSMENT/PLAN: NEURO: Acute metabolic encephalopathy, improved Awake and alert -Lortab as needed for pain -10/31 CT of the head- negative -10/31MRI minimal periventricular ischemic white matter change no acute abnormality RESP: COPD exacerbation, resolved Left lower lobe pneumonia, resolved ARDS, resolved Respiratory distress, improved. Bilateral pleural effusions. -Emergently intubated and placed on mechanical ventilation 10/31/2017. Extubated 11/07/17. Wean down oxygen as josiah keep sats >92% -L pigtail chest tube placed with initially 600 mL of serosanginous output. Respiratory status improved. pleural fluid culture negative,pathology pending. Chest tube removed 11/17 -U/s R pleural effusion on 11/15 - not amenable to drainage. Continue Symbicort 160/4.52 puffs inhaled every 12 hours Incentive spirometry every hour awake, Acapella. Continue Solumedrol to 40 mg IV q12 . Guaifenesin [address] twice daily Dr. Johnson following CVS: Hemorrhagic shock, resolved. Secondary to R retroperitoneal hematoma Lactic acidemia- resolved Acute on chronic left limb ischemia, improved Paroxysmal atrial fibrillation HTN -CTA showed severe aorto-iliac occlusive disease with left iliac thrombosis. Dr. Lopez evaluated, may need ax-fem bypass at some point but not during this hospitalization. -No longer a candidate for anticoagulation, ASA/Plavix recommended when patient stabilized. Now off antiplatelets both due to large RP bleed and now planned ERCP. GI requests antiplatets on hold at least 5 days for ERCP. after GI completes work-up, would re-initiate ASA. -Significant calcifications and peripheral vascular disease -2D echo: EF 50%, no significant valvular lesions. left sided pleural effusion -HIT screen negative. CHARLEEN -negative -Continue Cardizem 240 mg p.o. daily, Hydralazine 50mg Q8, Lopressor 50mg Q12 GI Acute hepatic dysfunction Hyperbilirubinemia Transaminitis Acute Choledocholithiasis R retroperitoneal hematoma -Trend LFTs. Lipase elevated but he is asymptomatic now. ERCP when O2 requirements is better - gallbladder ultrasound showed multiple gallstones -Retroperitoneal hematoma on 11/11 while on heparin drip, CT with large R retroperitoneal hematoma. Manage medically, repeat CT abd/pelvis 11/21: interval decrease in size of hematoma. - Gen Surgery following. -CT abdomen/pelvis 11/01: c/w choledocholithiasis - Perc cholecystostomy tube placed 11/01 by IR- Monitor drainage -Eventual cholecystectomy when stabilized. Dr. Martins has seen. FEN/RENAL Acute kidney injury- resolved Monitor renal function, I/O's, electrolytes replacement as needed Continue diuresis with Lasix 40 mg IV q12. Nephrology has signed off. ID E COLI bacteremia/severe sepsis, resolved Enterococcus in the urine: possible colonization vs. UTI. Acute Choledocholithiasis/ Cholangitis Biliary fluid gram-negative rods Cholecystostomy placed 11/01. Completed abx course per ID: Unasyn discontinued 11/13. Monitor for signs of infections ( Fever, WBC) HEME: Acute blood loss anemia overlying anemia of chronic disease acute thrombocytopenia: Initially consumptive secondary to sepsis earlier during admission then consumptive secondary to acute blood loss. - HIT negative. CHARLEEN negative 10/30. Heparin on hold since 11/11. Monitor coags, transfuse blood products as indicated. 3 units PRBC 11/11. 1 unit 11/12. 1 unit PRBCs ordered for hemoglobin 6.9 on 11/14. 1 unit PRBC 11/16 DVT GI prophylaxis -Vickey's and SCDs -Heparin infusion on hold due to bleeding/thrombocytopenia. ACCESS: . PIV Placed emergent left IJ central venous line 11/11-11/[address] Puckett: Patient states he agrees to reintubation if needed. In the setting of pulseless arrest he would not want CPR, shocks, intubation, ACLS drugs. CODE STATUS is alternate code intubation only. Patient's sister states that he has designated her as healthcare surrogate. He has advanced directives. Palliative care following. PT/OT Dispo: must remain in ICU due to high oxygen requirements. Didier Rahman MD Nov 21, 2017 18:06
[2017-11-22] VITALS (14 sets, daily range): BP systolic 134–141; BP diastolic 62–66; PULSE 41–81; RESP 12–17; TEMP 97.5–98.3; O2SAT 91–97
[2017-11-22] MEDS: RESP: ALBUTEROL 2.5 MG/IPRATROPIUM 0.5 MG NEB (SCH) NEB ×2 (03:07→10:26)
[2017-11-22] MEDS: CHLORHEXIDINE GLUCONATE 2 % 1 PACK (2 CLOTHS) TOP SCH (04:00)
[2017-11-22] MEDS: hydrALAZINE HCL 50 MG TAB PO SCH ×3 (05:29→20:45)
--- NOTE | 2017-11-22 07:00 | HHI.CCPN ---
Subjective Remarks/Hospital Course 67-year-old male presents to the emergency department via EMS for evaluation of shortness of breath and pain and numbness to the left leg. Patient believes that he is shortness of breath is related to the pain in his leg. He cannot feel his leg from his groin down. He denies any history of the same. He does report history of COPD. He denies any known fevers or chills. He denies chest pain. Patient received 1 L normal saline bolus via EMS. Patient denies any history of bleeding or blood clots. No recent surgery or travel. No hemoptysis. No history of DVT/PE. He denies leg edema. Patient states the pain is 10/10 to the left leg. No exacerbating or alleviating factors. Moderate severity. 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 The right inflow is heavily diseased as well. 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 SUBJ 10/29: Remains critically ill, encephalopathy. 4 out of 4 bottles positive for GNR. I will change Rocephin to Zosyn renally dosed to cover for Pseudomonas also. Continue azithromycin. Creatinine still elevated but slightly improved. WBC count slightly increased 17.2 now with 24% bands. Source of GNR sepsis could be either UTI or pneumonia. Will consult ID as well. Remains on IV heparin for acute left limb ischemia 10/30: platelets falling >50% again today. Cr still rising, but could be ATN/ contrast nephropathy. blood cultures growing e. coli by PCR, full speciation to follow. urine culture pending. discussed case with Dr. Lopez, will stop heparin , start argatroban and send HIT/CHARLEEN. denies complaints for me, but does have objective tenderness on palpation, RUQ. 10/31: Emergently intubated today a.m. by Dr. Puckett for worsening mental status, encephalopathy and worsening respiratory failure. Prior to intubation Dr. Puckett ' exam revealed right upper quadrant tenderness. Ultrasound of the gallbladder yesterday showed gallstones. Overnight Argatroban was supratherapeutic and was held, platelet count also dropped to 30,000, HIT screen is pending. Postintubation bilateral pupils are reactive but unequal. Will repeat CT of the head, CT abdomen pelvis. BUN 49/Creat 2.7, leukocytosis persisting 11/01: no improvements. ct abd/pelvis with evidence of possible choledocholithiasis. perc doug tube planned for this AM. on esmolol infusion for afib RVR. fio2 increased to 70%. 11/02: Sodium bicarbonate infusion continued per nephrology in the setting of rhabdomyolysis serial creatinine kinase pending. Cholecystostomy drain placement 100 cc overnight. Continued thrombocytopenia, CBC, serotonin release assay pending. Plan for reinitiation of heparin awaiting GI consultation for possible invasive procedures prior to restarting heparin. Patient sinus rhythm with occasional PAC's. 11/03: No acute events overnight. Sodium bicarbonate infusion discontinued this a.m. had any improved this a.m.. Chest x-ray showed worsening consolidation, FiO2 requirements were increased to 65% during the night. CPAP trials on hold currently. Biliary drainage from cholecystostomy tube revealing gram-negative rods. The patient continues on antibiotics. Bilateral dorsalis pedis pulses monophasic signals by Doppler. Heparin infusion reinitiated. 11/04: Sodium bicarbonate infusion discontinued at 7 AM yesterday. Chest x-ray worsening consolidation versus pleural effusions. FiO2 slightly decreased to 60 %, ABG improving. Pending quantification via ultrasound of pleural fluid in am. Lasix 40mg x1 additional dose provided today . PPN discontinued discussed with Dr. Colon tube feeds initiated at [facility]. Dietary consult ordered. 11/05: Afebrile. Patient tolerating tube feeds advanced to goal rate of 55 cc/ hr. chest x-ray with slight improvement FiO2 decreased to 55% ABG pending. Initiation of CPAP trial to be attempted today. 11/06: Late entry note. Patient seen at 628am. Patient was started on CPAP and continues on CPAP greater than 10 hours. Patient following commands, currently on Precedex infusion. 11/07: Patient remained on CPAP trials for approximately 12 hours yesterday and discontinued because of agitation. CPAP trials reinitiated this a.m. Patient complaint of sore throat Lortab ordered. Patient continues on Precedex for ventilator weaning process. Chest x-ray still shows pulmonary edema, additional dose Lasix 401 dose given this a.m.. When infusion continued, monophasic Doppler signals bilateral dorsalis pedal pulses noted. 11/08: Afebrile . Patient successfully extubated yesterday. Remains on O2 at 4 L nasal cannula O2 saturation 94-95%. Patient continues on heparin infusion, she was noted to have 9 BMs last evening plan for serial H&H's concern for possible stool with occult blood. Repeat stool for occult blood. Plan for possible bedside thoracentesis ,if respiratory requirements increase, currently on O2 4 L via nasal cannula in no apparent distress. 11/11 Late entry, notified of re-consult at 17:[address] Johnson, saw patient and immediately placed L IJ CVL because patient had ripped out an IV and had insufficient peripheral IV access given clinical condition. RN states patient had Hgb 7.5 this morning. Trend was unusual with Hb 8.3--> 12.5 (without transfusion)-->7.5 and lab recommended repeat. Repeat was drawn and was 4.2. Meanwhile, while awaiting re-draw patient became hypotensive, MAP down in the 40s, and was given albumin 25 gram IV. Now he has received 1 unit PRBC and BP improved to 120s/60s. Getting 2 additional units of PRBC stat. Nurse states heparin has been off since 12:30. Sending stat coags/fibrinogen. Patient denies nausea or vomiting. He has some right-sided abdominal pain. There is dark brown drainage from cholecystostomy tube. He has not had a bowel movement in 48 hours. No obvious evidence of GI bleeding. CT abdomen and pelvis has been ordered as "urgent", now giving additional PRBC and then will obtain stat. Gastroenterology has been following and I have notified them of the anemia, though this does not appear to be GI source at this time. 11/12 CT last night showed large retroperitoneal hematoma. Transfused total of 3 units PRBC yest evening. Hgb now 8.3. Coags/fibrinogen in acceptable range this morning, heparin drip off. Patient states much less abdominal pain today. He is alert and oriented now. Coughing, O2 requirement up to 6 L NC, afebrile. 11/13 Had some hemoptysis yesterday. CT with bilateral pleural effusions/ LLL atelectasis vs infiltrate. Now on 8 L SM, tachypneic with more labored breathing today. Edematous, will diurese. He is alert and capacitated currently and agrees to L pleural drainage. Transfused 1 unit PRBC yesterday for Hgb 7.4. He still has some Right sided abdominal pain 11/14: Resting in bed on simple facemask. Hemoglobin 6.9 this morning. Patient denies any worsening shortness of breath or chest pain. 1 unit PRBCs being transfused. Left-sided pigtail catheter placed 11/13 drain 650 cc 11/15 Remains on simple mask, breathing a little labored. L pigtail catheter output is serous, 270 last 24 hours. Planned to tap R pleural effusion but when performed u/s the fluid had decreased significantly and did not appear amenable to drainage; continue diuresis. Labs are pending, nurse is about to draw them. Afebrile 11/16 Diuresing, creatinine stable. On NC. Afebrile. L Chest tube output 220. Hgb 7.6 from 8.8. Transfusing 1 unit PRBC. Noted lipase 827. Patient denies n/v /abdominal tenderness. He says he is feeling "much better" and denies abd pain. 11/17 Chest tube removed yesterday without complication. Labored breathing when he got OOB overnight. He is tired of wearing simple mask so he wants to try HFNC. Depressed today, is worried his ERCP will get canceled. Wants to get out of the hospital. Case management working on transfer to [facility] when cleared following ERCP. 11/18 Patient is on high flow oxygen with 70% FIO2. For ERCP today. 11/19 No events overnight. ERCP wasn't done yesterday as patient is on high flow oxygen. Remains on 25L with 70% FIO2. Afebrile. 11/20: no acute events. tolerating a diet. on high flow NC at 70% fio2. not dyspneic. Subjective: 11/21: repeat CT abd/pelvis with interval decrease in size of hematoma. no other changes. remains on HFNC despite diuresis. 11/22 No events overnight. Down to 3L oxygen with good sats. Afebrile. Objective Vital Signs Date Time Temp Pulse Resp B/P (MAP) Pulse Ox O2 Delivery O2 Flow Rate FiO2 11/22/17 06:00 59 11/22/17 04:00 97.5 16 138/64 (88) 93 11/21/17 19:46 Nasal Cannula 3.00 11/21/17 07:54 80 Intake and Output 11/22/17 11/22/17 11/23/17 08:00 16:00 00:00 Intake Total 350 ml Output Total 1070 ml Balance -720 ml Result Diagram: 11/20/17 0635 11/20/17 0434 Imaging Last Impressions Abdomen/Pelvis CT 11/21/17 0000 Signed Impressions: The retroperitoneal hematoma on the right is smaller from the prior examination . It previously measured 21 x 11 x 12 cm and now measures 21 x 8 x 11 cm. No ac lito hemorrhage appreciated. A drainage catheter is seen within the gallbladder fossa and the gallbladder is totally decompressed. This is stable in appearance from the prior study. No biliary dilatation. A 3 mm nonobstructing left renal stone noted. Bibasilar areas of consolidation affecting the left lower lobe to a greater degree than the right. This is stable. The left effusion is smaller f rom the prior exam. The right effusion is stable. Colonic diverticuli without a cute abnormality. CONCLUSION: 1. The retroperitoneal hematoma on the right is smaller from the prior study. 2. Drainage catheter within the right upper quadrant felt to relate to a doug cystostomy tube. No biliary dilatation. 3. Nonobstructing left renal stone. 4. Colonic diverticulosis. 5. Improving left effusion with unchanged right effusion. 6. Bibasilar consolidation appears stable. Chest X-Ray 11/18/17 0000 Signed Impressions: CONCLUSION: Some improvement in the bibasilar infiltrates. Chest CT 11/12/17 Signed Impressions: CONCLUSION: 1. Bilateral pleural effusions left greater than right. Areas of infiltrate ve rsus atelectasis left lung base difficult to rule out a small superimposed pneu monia. 2. Dense coronary atherosclerotic disease. Chest Ultrasound 11/07/17 Signed Impressions: CONCLUSION: 1. Left-sided pleural effusion. Percutaneous Cholangiogram 11/01/17 Signed Impressions: CONCLUSION: 1. Uncomplicated percutaneous cholecystostomy as above. Renal Ultrasound 10/31/17 Signed Impressions: CONCLUSION: 1. No hydronephrosis. 2. Increased cortical echogenicity consistent with medical renal disease. Head Magnetic Resonance Angiography 10/31/17 Signed Impressions: CONCLUSION: 1. Unremarkable MRA of the brain. Head CT 10/31/17 0000 Signed Impressions: CONCLUSION: 1. Negative CT Head non contrast. 2. No evidence of acute infarct, hemorrhage, mass or edema. Brain MRI 10/31/17 Signed Impressions: CONCLUSION: 1. Senescent changes with minimal periventricular ischemic white matter demyel ination. 2. No acute abnormality. Specifically, no acute infarction, mass or hemorrhage . Gall Bladder Ultrasound 10/30/17 Signed Impressions: CONCLUSION: 1. Fatty infiltration of the liver. 2. Multiple stones in the gallbladder. No biliary tract obstruction. Extremity Arterial Study 10/28/17 Signed Impressions: CONCLUSION: 1. Abnormal ABIs, left greater than right. The left DAVID is significantly dimin ished at 0.14. Aorta w/Runoff CTA 10/28/17 Signed Impressions: Service Date/Time: Saturday, October 28, 2017 21:50 - CONCLUSION: 1. Acute occlusion of the left inflow with concern for short segment occlusion involving the distal right inflow. This raises concern for an embolic event. 2. Right lower extremity shows scattered disease throughout the common femoral artery, SFA and [id number] popliteal artery with three-vessel runoff to the foot. 3. Left lower extremity with reconstitution of the common femoral artery with diseased out flow and two vessel runoff to the foot as detailed above. 4. 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 5. Hepatic steatosis. 6. Cholelithiasis. Juanjose Mckeon Jr., MD Objective Remarks GENERAL: middle-aged male, lying in bed, alert and conversant. SKIN: Warm and dry. HEAD: Normocephalic. ENT: + scleral icterus. No injection or drainage. Pupils are now equal at 3mm, reactive. On high flow NC. NECK: Supple, trachea midline. No JVD. CARDIOVASCULAR: Regular, rate in the 70s. sinus. RESPIRATORY: unlabored. fio2 70% high flow nc. no accessory muscle use. equal chest rise. GASTROINTESTINAL: Abdomen distended, no tenderness to palpation. bowel sounds present. Cholecystostomy tube is in place . No flank hematoma. MUSCULOSKELETAL: No cyanosis, 1+ bipedal edema. Bilateral DP with Doppler pulses. Discoloration of left fifth toe. Bruising of right distal forearm and ecchymosis finger tips of right hand with 1+ right hand edema, palpable radial pulse and good drying machine back tender. NEURO EXAM: Eyes open, makes eye contact. Oriented to person, place, year. Moves all extremities with no focal deficit A/P Assessment and Plan ASSESSMENT/PLAN: NEURO: Acute metabolic encephalopathy, improved Awake and alert -Lortab as needed for pain -10/31 CT of the head- negative -10/31MRI minimal periventricular ischemic white matter change no acute abnormality RESP: COPD exacerbation, resolved Left lower lobe pneumonia, resolved ARDS, resolved Respiratory distress, improved. Bilateral pleural effusions. -Emergently intubated and placed on mechanical ventilation 10/31/2017. Extubated 11/07/17. Continue with oxygen keep sats >92% -L pigtail chest tube placed with initially 600 mL of serosanginous output. Respiratory status improved. pleural fluid culture negative,pathology pending. Chest tube removed 11/17 -U/s R pleural effusion on 11/15 - not amenable to drainage. Continue Symbicort 160/4.52 puffs inhaled every 12 hours Incentive spirometry every hour awake, Acapella. Continue Solumedrol 40 mg IV q12 . Guaifenesin [address] twice daily Dr. Johnson following CVS: Hemorrhagic shock, resolved. Secondary to R retroperitoneal hematoma Lactic acidemia- resolved Acute on chronic left limb ischemia, improved Paroxysmal atrial fibrillation HTN -CTA showed severe aorto-iliac occlusive disease with left iliac thrombosis. Dr. Lopez evaluated, may need ax-fem bypass at some point but not during this hospitalization. -No longer a candidate for anticoagulation, ASA/Plavix recommended when patient stabilized. Now off antiplatelets both due to large RP bleed and now planned ERCP. GI requests antiplatets on hold at least 5 days for ERCP. after GI completes work-up, would re-initiate ASA. -Significant calcifications and peripheral vascular disease -2D echo: EF 50%, no significant valvular lesions. left sided pleural effusion -HIT screen negative. CHARLEEN -negative -Continue Cardizem 240 mg p.o. daily, Hydralazine 50mg Q8, Lopressor 50mg Q12 GI Acute hepatic dysfunction Hyperbilirubinemia Transaminitis Acute Choledocholithiasis R retroperitoneal hematoma -Monitor LFT's and Lipase level- ERCP when O2 requirements is better Repeat CT abd/pelvis 11/21: The retroperitoneal hematoma on the right is smaller from the prior study. Drainage catheter within the right upper quadrant in place , No biliary dilatation. Nonobstructing left renal stone. Colonic diverticulosis - gallbladder ultrasound showed multiple gallstones -Retroperitoneal hematoma on 11/11 while on heparin drip, CT with large R retroperitoneal hematoma. Manage medically, repeat CT abd/pelvis 11/21: interval decrease in size of hematoma. - Gen Surgery following. -CT abdomen/pelvis 11/01: c/w choledocholithiasis - Perc cholecystostomy tube placed 11/01 by IR- Monitor drainage -Eventual cholecystectomy when stabilized. Dr. Martins has seen. FEN/RENAL Acute kidney injury- resolved Monitor renal function, I/O's, electrolytes replacement as needed Continue diuresis with Lasix 40 mg IV q12. Nephrology has signed off. ID E COLI bacteremia/severe sepsis, resolved Enterococcus in the urine: possible colonization vs. UTI. Acute Choledocholithiasis/ Cholangitis Biliary fluid gram-negative rods Cholecystostomy placed 11/01. Completed abx course per ID: Unasyn discontinued 11/13. Monitor for signs of infections ( Fever, WBC) HEME: Acute blood loss anemia overlying anemia of chronic disease acute thrombocytopenia: Initially consumptive secondary to sepsis earlier during admission then consumptive secondary to acute blood loss. - HIT negative. CHARLEEN negative 10/30. Heparin on hold since 11/11. Monitor coags, transfuse blood products as indicated. 3 units PRBC 11/11. 1 unit 11/12. 1 unit PRBCs ordered for hemoglobin 6.9 on 11/14. 1 unit PRBC 11/16 DVT GI prophylaxis -Vickey's and SCDs -Heparin infusion on hold due to bleeding/thrombocytopenia. ACCESS: . PIV Placed emergent left IJ central venous line 11/11-11/[address] Puckett: Patient states he agrees to reintubation if needed. In the setting of pulseless arrest he would not want CPR, shocks, intubation, ACLS drugs. CODE STATUS is alternate code intubation only. Patient's sister states that he has designated her as healthcare surrogate. He has advanced directives. Palliative care following. PT/OT Check labs today Level 2 Vandana Frazier MD Nov 22, 2017 07:00
[2017-11-22] MEDS: ACETAMINOPHEN/HYDROcodone 325 MG/7.5 MG TAB PO PRN ×4 (07:33→21:34)
[2017-11-22] MEDS: CHLORHEXIDINE 0.12% (ORAL KIT) 15 ML CUP MT SCH ×2 (08:00→20:00)
[2017-11-22] MEDS: METOPROLOL TARTRATE 50 MG TAB PO SCH ×2 (09:00→20:44)
[2017-11-22] MEDS: NYSTATIN SUSP 500,000 U/5 ML CUP SWISH-SWAL SCH ×4 (09:00→20:45)
[2017-11-22] MEDS: SODIUM CHLORIDE 0.9% FLUSH 10 ML FLUSH IV FLUSH SCH ×2 (11:30→20:44)
[2017-11-22] MEDS: guaiFENesin E.R. 600 MG TAB PO SCH ×2 (11:30→20:44)
[2017-11-22] MEDS: FAMOTIDINE 20 MG TAB PO SCH ×2 (11:30→20:44)
[2017-11-22] MEDS: FUROSEMIDE 40 MG/4 ML VIAL IV PUSH SCH ×2 (11:30→20:44)
[2017-11-22] MEDS: BUDESONIDE-FORMOTEROL 160/4.5 MCG INHALER INH SCH ×2 (11:31→20:44)
[2017-11-22] MEDS: DILTIAZEM-CD 240 MG CAP ER PO SCH (11:31)
[2017-11-22] MEDS: methylPREDNISolone SOD SUCC 40 MG/1 ML VIAL IV PUSH SCH ×2 (12:53→23:39)
[2017-11-22 15:00] LABS: AUTOMATED NEUTROPHIL # 6.5 TH/MM3 (1.8-7.7); HEMATOCRIT 31.2 % (39.0-51.0); HEMOGLOBIN 10.6 GM/DL (13.0-17.0); LYMPH % 1.7 % (9.0-44.0); LYMPHOCYTE # 0.1 TH/MM3 (1.0-4.8); MEAN CORPUSCULAR HEMOGLOBIN 31.6 PG (27.0-34.0); MEAN PLATELET VOLUME 10.7 FL (7.0-11.0); MONOCYTE # 0.2 TH/MM3 (0-0.9); NEUT % 95.3 % (16.0-70.0); PLATELET COUNT 98 TH/MM3 (150-450); RED BLOOD COUNT 3.35 MIL/MM3 (4.50-5.90); RED CELL DISTRIBUTION WIDTH 18.5 % (11.6-17.2); WHITE BLOOD COUNT 6.8 TH/MM3 (4.0-11.0)
[2017-11-22] MEDS ORDERED: SOD PHOSPHATE/SOD BIPHOSPHATE (ADULT) ENEMA 133ML RECTAL ONE (15:00)
--- NOTE | 2017-11-22 15:14 | HHI.HCPN ---
Reason for visit a. To assist with evaluation and management of symptoms including: Shortness of breath, pain, debility, constipation. b. To assist medical decision maker(s) with: better understanding of current medical conditions; weighing benefits/burdens of medical treatment options; making medical treatment decisions. . (Rocio Aguiar) Subjective/Interval History Pt seen today to follow up abd discomfort, constipation, dyspnea. Seen with MARTINA Davis. Pt's Sister Jennifer at bedside. Sister mentioned possibly having ERCP done Saturday. General review pt condition, placement after discharge, prognosis. Still no BM after Senna repeated yesterday. Pt c/o abd soreness. +flatus. Says his breathing felt "fine." Only eats what his sister brings in-- grilled cheese , crackers and peanut butter, little jose alejandro cakes. Pt weaned off high flow o2, now on 3L via NC. Abd more distended and firmer today. (Rocio Aguiar) Advance Directives Living Will: Copy in medical record Health Care Surrogate: Copy in medical record (Rocio Aguiar) Advance Directive Specifics Date completed: 10/27/2012. . Health Care Surrogate(s): Patient electing sister Jennifer Galeas as healthcare surrogate decision maker. No alternate surrogates. . Documented care wishes: Living will with standard verbiage as it pertains to terminal condition, end- stage condition or persistent vegetative state. . (Rocio Aguiar) Objective Vital Signs Date Time Temp Pulse Resp B/P (MAP) Pulse Ox O2 Delivery O2 Flow Rate FiO2 11/22/17 10:26 97 Nasal Cannula 3.00 11/22/17 07:00 93 Nasal Cannula 3.00 11/22/17 06:00 59 11/22/17 04:00 62 11/22/17 04:00 97.5 62 16 138/64 (88) 93 11/22/17 02:00 62 11/22/17 00:00 97.9 61 16 141/65 (90) 92 11/22/17 00:00 61 11/21/17 22:00 64 11/21/17 20:00 66 11/21/17 20:00 98.1 66 17 133/68 (89) 92 11/21/17 19:46 93 Nasal Cannula 3.00 11/21/17 19:00 92 Nasal Cannula 3.00 11/21/17 18:00 60 11/21/17 16:00 61 11/21/17 16:00 97.8 65 15 140/63 (88) 96 Intake & Output 11/22/17 11/22/17 07:00 19:00 Intake Total 350 ml Output Total 1070 ml Balance -720 ml Intake Oral 350 ml Output Urine Total 1000 ml Drainage Total 70 ml # Bowel Movements 0 Physical Exam CONSTITUTIONAL/GENERAL: This is an adequately nourished patient, resting in bed TUBES/LINES/DRAINS: NC, PIV's, biliary drain, Peña catheter SKIN: Dusky. + icterus. No rashes, or lesions. multiple areas of ecchymoses on bilateral upper extremities, slight edema left hand. CARDIOVASCULAR: RRR. Warm bilateral extremities, no cyanosis noted. RESPIRATORY/CHEST: mildly short of breath with conversation. + 3L o2 via NC. Rhonchi & wheezes noted bilaterally. GASTROINTESTINAL: Abdomen obese, distended, firm- more so today than yesterday, tympanitic. drain right quadrant- draining brownish yellow liq. BS present. GENITOURINARY: Peña catheter in place, orange urine MUSCULOSKELETAL: Extremities without clubbing, cyanosis. +1 pitting edema BLE NEUROLOGICAL: Alert oriented x2-3 , cooperative, moves all 4 extremities PSYCHIATRIC: No depression or anxiety or hallucinations evident . (Rocio Aguiar [facility]) Diagnostic Tests Laboratory Laboratory Tests Test 11/20/17 04:34 11/20/17 06:35 11/22/17 14:33 Blood Urea Nitrogen 35 MG/DL (7-18) Creatinine 0.83 MG/DL (0.60-1.30) Random Glucose 146 MG/DL (74-106) Total Protein 5.1 GM/DL (6.4-8.2) Albumin 2.8 GM/DL (3.4-5.0) Calcium Level 7.4 MG/DL (8.5-10.1) Alkaline Phosphatase 60 U/L (45-117) Aspartate Amino Transf (AST/SGOT) 24 U/L (15-37) Alanine Aminotransferase (ALT/SGPT) 80 U/L (12-78) Total Bilirubin 5.5 MG/DL (0.2-1.0) Sodium Level 142 MEQ/L (136-145) Potassium Level 3.7 MEQ/L (3.5-5.1) Chloride Level 106 MEQ/L (98-107) Carbon Dioxide Level 26.6 MEQ/L (21.0-32.0) Anion Gap 9 MEQ/L (5-15) Estimat Glomerular Filtration Rate 92 ML/MIN (>89) Protein Corrected Calcium 8.5 MG/DL (8.5-10.1) White Blood Count 6.6 TH/MM3 (4.0-11.0) Red Blood Count 2.73 MIL/MM3 (4.50-5.90) Hemoglobin 8.6 GM/DL (13.0-17.0) Hematocrit 25.5 % (39.0-51.0) Mean Corpuscular Volume 93.4 FL (80.0-100.0) Mean Corpuscular Hemoglobin 31.4 PG (27.0-34.0) Mean Corpuscular Hemoglobin Concent 33.7 % (32.0-36.0) Red Cell Distribution Width 18.4 % (11.6-17.2) Platelet Count 74 TH/MM3 (150-450) Mean Platelet Volume 10.8 FL (7.0-11.0) Neutrophils (%) (Auto) 96.0 % (16.0-70.0) Lymphocytes (%) (Auto) 1.3 % (9.0-44.0) Monocytes (%) (Auto) 2.5 % (0.0-8.0) Eosinophils (%) (Auto) 0.0 % (0.0-4.0) Basophils (%) (Auto) 0.2 % (0.0-2.0) Neutrophils # (Auto) 6.3 TH/MM3 (1.8-7.7) Lymphocytes # (Auto) 0.1 TH/MM3 (1.0-4.8) Monocytes # (Auto) 0.2 TH/MM3 (0-0.9) Eosinophils # (Auto) 0.0 TH/MM3 (0-0.4) Basophils # (Auto) 0.0 TH/MM3 (0-0.2) CBC Comment AUTO DIFF Differential Comment AUTO DIFF CONFIRMED Platelet Estimate LOW (NORMAL) Platelet Morphology Comment NORMAL (NORMAL) (Rocio Aguiar) Result Diagram: 11/20/17 0635 11/20/17 0434 Procedures * 10/31/17: Endotracheal intubation * 11/01/17: Biliary drain placement * 11/07/17: Extubation * 11/13/17: Left-sided pigtail chest tube * 11/17/17: chest tube removed . (Rocio Aguiar [facility]) Assessment and Plan Disease Oriented Problem List: (1) COPD (chronic obstructive pulmonary disease) (2) Pneumonia (3) Retroperitoneal bleed (4) Acute blood loss anemia (5) Acute renal failure (6) Peripheral vascular disease (7) CKD (chronic kidney disease) stage 4, GFR 15-29 ml/min (8) Choledocholithiasis (9) Physical deconditioning (10) Sepsis (11) Ischemia of left lower extremity Symptom Scale: (1) Dyspnea 0-10 Scale: Unable to quantify (2) Pain 0-10 Scale: Unable to quantify (3) Debility 0-10 Scale: Unable to quantify (4) Constipation 0-10 Scale: Unable to quantify Pertinent Non-Medical Issues Psychosocial: Patient originally from [facility]. Moved to [place] 6 years ago. He is , has 3 biological children. 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 No service. Spiritual: No anabaptist affiliation. Legal: Advance directives completed. Ethical issues impacting care: No ethical issues identified. . Important Contacts Sister/healthcare surrogate: Jennifer Adal . Prognosis Mr. Bates is a 67-year-old male with a medical history significant for COPD, hypertension, CAD and peripheral vascular disease. Patient presented to ED via EMS on 10/28/17 for evaluation of shortness of breath and pain to his left leg. He was found with occlusion of left iliac artery, not a surgical candidate secondary to sepsis, pneumonia and respiratory failure. Clinical course complicated by acute on chronic renal failure, choledocholithiasis requiring biliary drain placement, retroperitoneal bleed with development of hemorrhagic shock. Patient remains in critical condition, high risk for further complications, decline and . Overall prognosis is guarded. . Code Status: Alternative Code Plan * CODE STATUS: Alternate code, intubation only. * HEALTHCARE DECISION-MAKING: Patient participating medical decision making, however, intermittent confusion secondary to encephalopathy/acute illness. Advanced directives completed, patient designated his sister Jennifer Morrisonud as healthcare surrogate decision maker. No alternate surrogate designated. Palliative care recommends shared decision making with patient and sister given intermittent confusion. In addition, patient appears to rely on sister for guidance. * GOALS OF CARE: Patient supported by Sister Jennifer electing continuation of aggressive management short of NO cardiac resuscitation. Patient and sister receptive to palliative care follow-up. * SYMPTOMS: * = Dyspnea: Multifactorial secondary to COPD, acute illness, physical deconditioning, anemia -retroperitoneal hematoma. Currently on 3Lo2 via NC, PRN duonebs. CT showing improvement left pleural effusion, unchanged bibasilar consolidation, unchanged right pleural effusion. Currently on Solu-Medrol 40 mg every 12 hours. * = Pain: Secondary to multiple lines, prolonged hospitalization/Bedrest. pt c/ o abd pain. [place] 7.5/325 mg available as needed. * = Debility: Secondary to prolonged hospitalization and acute on chronic illness. Likely to continue to worsen. PT following, PT and rehab recommended. Referral to [facility] under way. * = constipation: ?ileus. + flatus. Has diet devoid of fiber. No BM 9 days. BS +. CT 11/21 showed decompressed GB. still no BM Fleet's enema today, BID scheduled senna. d/w RN * Palliative care will continue to follow up for further clarification of goals of care as patient's clinical course continues to evolve. (Rocio Aguiar) Time Spent Total Floor Time (mins): 20 (chart review, discussion with RN, discussion with pt & family) (Rocio Aguiar) Attestation To help prompt me to consider important information that might be impacting today's encounter and assessment, information from prior notes written by myself or my colleagues may have been "brought forward" into today's note. My signature on this note, however, is an attestation that I personally performed the exam, history, and/or decision-making noted today, and, unless otherwise indicated, the interactions with patient, family, and staff as well as the review of records all occurred today. I also attest that the listed assessment and stated plan reflect my best clinical judgment today based on the combination of historical information, prior notes, and today's exam/ interactions. When time spent is documented, it refers only to time spent today by the signer, or if indicated, combined time spent today by collaborating physician/nurse practitioner. (Rocio Aguiar) Collaborating MD Comments dual visit shanita MACK, concur with above assessment, documentation. (Maria A Davis) Rocio Aguiar Nov 22, 2017 15:14 Maria A Davis Nov 26, 2017 17:17
--- NOTE | 2017-11-22 15:31 | HHI.GIFU ---
Subjective Remarks Resting in the bed currently controlled O2 sat at 91-94 on nasal cannula at 3 L Abdomen mild distention , semifirm Awake answer simple question (Maura Lauren) Objective Vitals I&O Vital Signs Date Time Temp Pulse Resp B/P (MAP) Pulse Ox O2 Delivery O2 Flow Rate FiO2 11/22/17 10:26 97 Nasal Cannula 3.00 11/22/17 07:00 93 Nasal Cannula 3.00 11/22/17 06:00 59 11/22/17 04:00 62 11/22/17 04:00 97.5 62 16 138/64 (88) 93 11/22/17 02:00 62 11/22/17 00:00 97.9 61 16 141/65 (90) 92 11/22/17 00:00 61 11/21/17 22:00 64 11/21/17 20:00 66 11/21/17 20:00 98.1 66 17 133/68 (89) 92 11/21/17 19:46 93 Nasal Cannula 3.00 11/21/17 19:00 92 Nasal Cannula 3.00 11/21/17 18:00 60 11/21/17 16:00 61 11/21/17 16:00 97.8 65 15 140/63 (88) 96 I/O 11/21/17 11/21/17 11/21/17 11/22/17 11/22/17 11/22/17 07:00 15:00 23:00 07:00 15:00 23:00 Intake Total 240 ml 600 ml 350 ml Output Total 1555 ml 800 ml 1070 ml Balance -1315 ml -200 ml -720 ml Intake Oral 240 ml 600 ml 350 ml Output Urine Total 1475 ml 800 ml 1000 ml Drainage Total 80 ml 70 ml # Bowel Movements 0 0 0 Laboratory Laboratory Tests Test 11/22/17 14:33 White Blood Count 6.8 Red Blood Count 3.35 Hemoglobin 10.6 Hematocrit 31.2 Mean Corpuscular Volume 93.0 Mean Corpuscular Hemoglobin 31.6 Mean Corpuscular Hemoglobin Concent 34.0 Red Cell Distribution Width 18.5 Platelet Count 98 Mean Platelet Volume 10.7 Neutrophils (%) (Auto) 95.3 Lymphocytes (%) (Auto) 1.7 Monocytes (%) (Auto) 3.0 Eosinophils (%) (Auto) 0.0 Basophils (%) (Auto) 0.0 Neutrophils # (Auto) 6.5 Lymphocytes # (Auto) 0.1 Monocytes # (Auto) 0.2 Eosinophils # (Auto) 0.0 Basophils # (Auto) 0.0 CBC Comment AUTO DIFF Date/Time Source Procedure Growth Status 10/30/17 20:38 Blood Peripheral Aerobic Blood Culture - Final NO GROWTH IN 5 DAYS Complete 10/30/17 20:38 Blood Peripheral Anaerobic Blood Culture - Final NO GROWTH IN 5 DAYS Complete 11/13/17 12:00 Fluid Pleural Fluid Gram Stain - Final Complete 11/13/17 12:00 Fluid Pleural Fluid Body Fluid Culture - Final NO GROWTH IN 72 HRS.--AEROBICALLY OR ... Complete 11/04/17 05:08 Stool Stool Stool Occult Blood (NUBIA) - Final HEMOCCULT POSITIVE Complete 10/31/17 10:40 Sputum Endotracheal Gram Stain - Final Complete 10/31/17 10:40 Sputum Endotracheal Sputum Culture - Final HEAVY GROWTH NORMAL RESPIRATORY TERRELL Complete 10/29/17 00:00 Urine Catheterized Urine Urine Culture - Final Enterococcus Faecalis Complete Imaging Last Impressions Abdomen/Pelvis CT 11/21/17 0000 Signed Impressions: The retroperitoneal hematoma on the right is smaller from the prior examination . It previously measured 21 x 11 x 12 cm and now measures 21 x 8 x 11 cm. No ac [place] hemorrhage appreciated. A drainage catheter is seen within the gallbladder fossa and the gallbladder is totally decompressed. This is stable in appearance from the prior study. No biliary dilatation. A 3 mm nonobstructing left renal stone noted. Bibasilar areas of consolidation affecting the left lower lobe to a greater degree than the right. This is stable. The left effusion is smaller f rom the prior exam. The right effusion is stable. Colonic diverticuli without a cute abnormality. CONCLUSION: 1. The retroperitoneal hematoma on the right is smaller from the prior study. 2. Drainage catheter within the right upper quadrant felt to relate to a doug cystostomy tube. No biliary dilatation. 3. Nonobstructing left renal stone. 4. Colonic diverticulosis. 5. Improving left effusion with unchanged right effusion. 6. Bibasilar consolidation appears stable. Chest X-Ray 11/18/17 Signed Impressions: CONCLUSION: Some improvement in the bibasilar infiltrates. Chest CT 11/12/17 Signed Impressions: CONCLUSION: 1. Bilateral pleural effusions left greater than right. Areas of infiltrate ve rsus atelectasis left lung base difficult to rule out a small superimposed pneu monia. 2. Dense coronary atherosclerotic disease. Chest Ultrasound 11/07/17 Signed Impressions: CONCLUSION: 1. Left-sided pleural effusion. Percutaneous Cholangiogram 11/01/17 Signed Impressions: CONCLUSION: 1. Uncomplicated percutaneous cholecystostomy as above. Renal Ultrasound 10/31/17 Signed Impressions: CONCLUSION: 1. No hydronephrosis. 2. Increased cortical echogenicity consistent with medical renal disease. Head Magnetic Resonance Angiography 10/31/17 Signed Impressions: CONCLUSION: 1. Unremarkable MRA of the brain. Head CT 10/31/17 Signed Impressions: CONCLUSION: 1. Negative CT Head non contrast. 2. No evidence of acute infarct, hemorrhage, mass or edema. Brain MRI 10/31/17 Signed Impressions: CONCLUSION: 1. Senescent changes with minimal periventricular ischemic white matter demyel ination. 2. No acute abnormality. Specifically, no acute infarction, mass or hemorrhage . Gall Bladder Ultrasound 10/30/17 Signed Impressions: CONCLUSION: 1. Fatty infiltration of the liver. 2. Multiple stones in the gallbladder. No biliary tract obstruction. Extremity Arterial Study 10/28/17 Signed Impressions: CONCLUSION: 1. Abnormal ABIs, left greater than right. The left DAVID is significantly dimin ished at 0.14. Aorta w/Runoff CTA 10/28/17 Signed Impressions: Service Date/Time: Saturday, October 28, 2017 21:50 - CONCLUSION: 1. Acute occlusion of the left inflow with concern for short segment occlusion involving the distal right inflow. This raises concern for an embolic event. 2. Right lower extremity shows scattered disease throughout the common femoral artery, SFA and [id number] popliteal artery with three-vessel runoff to the foot. 3. Left lower extremity with reconstitution of the common femoral artery with diseased out flow and two vessel runoff to the foot as detailed above. 4. 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 5. Hepatic steatosis. 6. Cholelithiasis. Juanjose Mckeon Jr., MD Physical Exam HEENT: Normocephalic; atraumatic CHEST -short volumes, diminished breath sounds in the bases CARDIAC: RRR ABDOMEN: Distended, semi-firm, nontender, bowel sounds active. SKIN: Normal; no rash; no jaundice. COLORED LEATHER SETTER: Awake, answers questions appropriately (Maura Lauren) Assessment and Plan Assessment: (1) Sepsis ICD Codes: A41.9 - Sepsis, unspecified organism Status: Acute Plan Assessment: - Choledocholithiasis with elevated LFTs, trending down CT abdomen WO IV contrast (11/01) --> Gallstones, appears to be areas of increased density within the common bile duct concerning for choledocholithiasis. S/P IR for percutaneous cholecystostomy drain on 11/01 - Culture with heavy growth of gram positive and gram negative enteric terrell, no further work up Pt on Unasyn - Elevated LFTs- likely secondary to obstruction from above but liver work up pending Iron-145 TIBC-214 %sat-67.7 Ferritin-248 AFP-6.9 Hepatitis panel negative [place], AMA, ASMA negative. AAT-215 Ceruloplasmin-24 - Anemia, normocytic- with Hemoccult positive stools- no obvious GIB - Cold left leg- Heparin gtt - now discontinued (11/18) Pt was initially planned for ERCP today, however, pt is on high flow NC and is too unstable for endoscopic procedures. No repeat labs from today but H/H has been stable over the past few days, no reports of GIB 11/22/2017 patient was reevaluated now that he is able to manage nasal cannula at 3 L. Plan for ERCP Saturday a.m. consent to be done Saturday O2 sat 91-94. Abdomen continues to be semi-firm round, but no abdominal pain Plan Consent for ERCP Saturday a.m. Diet per attending Anti-emetics Further recommendations to follow after ERCP Pt has been seen and examined by myself and Dr. Coats and this note is written on his behalf (Maura Lauren) Physician Comments Seen and examined, discussed with patient, sister and pumpman. Will schedule ERCP saturday. Further recommendations to follow. (James Coats MD) Problem Qualifiers (1) Sepsis: Qualified Codes: A41.9 - Sepsis, unspecified organism Maura Lauren Nov 22, 2017 15:31 James Coats MD Nov 22, 2017 16:25
[2017-11-22 16:51] LABS: ALBUMIN 2.9 GM/DL (3.4-5.0); ALKALINE PHOSPHATASE 92 U/L (45-117); AST (GOT) 52 U/L (15-37); BICARBONATE 24.8 MEQ/L (21.0-32.0); BLOOD UREA NITROGEN 38 MG/DL (7-18); CHLORIDE 108 MEQ/L (98-107); CREATININE 0.89 MG/DL (0.60-1.30); GLOMERULAR FILTRATION RATE 85 ML/MIN (>89); GLUCOSE,RANDOM 137 MG/DL (74-106); MAGNESIUM 2.5 MG/DL (1.5-2.5); SODIUM (NA) 144 MEQ/L (136-145)
--- NOTE | 2017-11-22 16:58 | HHI.PR ---
cc: Richi Martins MD Subjective Subjective Notes Resting in bed Constipated; just had enema Objective Vitals/I&O Vital Signs Date Time Temp Pulse Resp B/P (MAP) Pulse Ox O2 Delivery O2 Flow Rate FiO2 11/22/17 14:00 69 11/22/17 12:00 98.3 13 134/66 (88) 91 11/22/17 10:26 Nasal Cannula 3.00 11/21/17 07:54 80 Labs Laboratory Tests Test 11/22/17 14:33 White Blood Count 6.8 Red Blood Count 3.35 Hemoglobin 10.6 Hematocrit 31.2 Mean Corpuscular Volume 93.0 Mean Corpuscular Hemoglobin 31.6 Mean Corpuscular Hemoglobin Concent 34.0 Red Cell Distribution Width 18.5 Platelet Count 98 Mean Platelet Volume 10.7 Neutrophils (%) (Auto) 95.3 Lymphocytes (%) (Auto) 1.7 Monocytes (%) (Auto) 3.0 Eosinophils (%) (Auto) 0.0 Basophils (%) (Auto) 0.0 Neutrophils # (Auto) 6.5 Lymphocytes # (Auto) 0.1 Monocytes # (Auto) 0.2 Eosinophils # (Auto) 0.0 Basophils # (Auto) 0.0 CBC Comment AUTO DIFF Differential Comment AUTO DIFF CONFIRMED Platelet Estimate LOW Platelet Morphology Comment NORMAL Date/Time Source Procedure Growth Status 10/30/17 20:38 Blood Peripheral Aerobic Blood Culture - Final NO GROWTH IN 5 DAYS Complete 10/30/17 20:38 Blood Peripheral Anaerobic Blood Culture - Final NO GROWTH IN 5 DAYS Complete 11/13/17 12:00 Fluid Pleural Fluid Gram Stain - Final Complete 11/13/17 12:00 Fluid Pleural Fluid Body Fluid Culture - Final NO GROWTH IN 72 HRS.--AEROBICALLY OR ... Complete 11/04/17 05:08 Stool Stool Stool Occult Blood (NUBIA) - Final HEMOCCULT POSITIVE Complete 10/31/17 10:40 Sputum Endotracheal Gram Stain - Final Complete 10/31/17 10:40 Sputum Endotracheal Sputum Culture - Final HEAVY GROWTH NORMAL RESPIRATORY KAREEM Complete 10/29/17 00:00 Urine Catheterized Urine Urine Culture - Final Enterococcus Faecalis Complete Cardiovascular: Regular Lungs: Clear Abdomen: Other (distended but non tender ) Narrative Exam Moderate generalized edema A/P Assessment and Plan 67 year old male with multiple medical problems on heparin drip with retroperitoneal hematoma -Diet as tolerated -Hmg stable -Bowel regimen -Continue abdominal exams; exam continues to be benign -Continue non operative treatment -GS will follow peripherally; please call with questions Attending Statement The exam, history, and the medical decision-making described in the above note were completed with the assistance of the mid-level provider. I reviewed and agree with the findings presented. I attest that I had a [id number] encounter with the patient on the same day, and personally performed and documented my assessment and findings in the medical record. retroperitoneal hematoma no signs of complications from hematoma abdomen soft, non-tender no surgical intervention Silvana Whalen/[employer]ique Furniture Reproducer CHANNEL ROUGHER Nov 22, 2017 16:58 Richi Martins MD Nov 23, 2017 19:54
--- NOTE | 2017-11-22 18:26 | HHI.PR ---
Subjective Remarks 67 YOWM with COPD,Sepsis, ischemia of leg mild sob cough, occ sp No Fever Improvement in breathing Appetite poor Weaned to 3 LNC Objective Vital Signs Vital Signs Date Time Temp Pulse Resp B/P (MAP) Pulse Ox O2 Delivery O2 Flow Rate FiO2 11/22/17 14:00 69 11/22/17 12:00 60 11/22/17 12:00 98.3 60 13 134/66 (88) 91 11/22/17 10:26 97 Nasal Cannula 3.00 11/22/17 10:00 59 11/22/17 08:00 98.1 66 17 139/64 (89) 91 11/22/17 08:00 66 11/22/17 07:00 93 Nasal Cannula 3.00 11/22/17 06:00 59 11/22/17 04:00 62 11/22/17 04:00 97.5 62 16 138/64 (88) 93 11/22/17 02:00 62 11/22/17 00:00 97.9 61 16 141/65 (90) 92 11/22/17 00:00 61 11/21/17 22:00 64 11/21/17 20:00 66 11/21/17 20:00 98.1 66 17 133/68 (89) 92 11/21/17 19:46 93 Nasal Cannula 3.00 11/21/17 19:00 92 Nasal Cannula 3.00 I/O 11/21/17 11/21/17 11/21/17 11/22/17 11/22/17 11/22/17 07:00 15:00 23:00 07:00 15:00 23:00 Intake Total 240 ml 600 ml 350 ml Output Total 1555 ml 800 ml 1070 ml Balance -1315 ml -200 ml -720 ml Intake Oral 240 ml 600 ml 350 ml Output Urine Total 1475 ml 800 ml 1000 ml Drainage Total 80 ml 70 ml # Bowel Movements 0 0 0 Result Diagram: 11/22/17 1433 11/20/17 0434 Objective Remarks GENERAL: WBWN WM, mild sob SKIN: Warm and dry. HEAD: Normocephalic. EYES: No scleral icterus. No injection or drainage. NECK: Supple, trachea midline. No JVD or lymphadenopathy. CARDIOVASCULAR: Regular rate and rhythm without murmurs, gallops, or rubs. RESPIRATORY: Breath sounds equal bilaterally. No accessory muscle use. GASTROINTESTINAL: Abdomen soft, non-tender, nondistended. MUSCULOSKELETAL: No cyanosis, or edema. Cold left leg BACK: Nontender without obvious deformity. No CVA tenderness. A/P Assessment and Plan IMPRESSION: 1. Sepsis. 2. Chronic obstructive pulmonary disease, mild exacerbation. 3. Left basilar infiltrate. 4. Urinary tract infection 5. Encephalopathy. 6. Cold left leg.-resolved 7. Thrombocytopenia. 8. VDRF--extubated 11/07 9. Severe anemia, retroperitoneal bleed PLAN: Cont Abx per ID Monitor renal functions Supplement 02 with 3LNC Encourage PO DW RN at BS Monitor H/H Dennis Johnson MD Nov 22, 2017 18:26
[2017-11-22 19:01] LABS: PHOSPHORUS 2.9 MG/DL (2.5-4.9); TOTAL PROTEIN 5.5 GM/DL (6.4-8.2)
[2017-11-22 19:02] LABS: ALT (GPT) 145 U/L (12-78); TOTAL BILIRUBIN ADULT 10.1 MG/DL (0.2-1.0)
[2017-11-22] MEDS: SENNOSIDES 8.6 MG TAB PO SCH (20:45)
[2017-11-22] MEDS ORDERED: METOPROLOL TARTRATE 5 MG/5 ML VIAL ONE (23:57)
[2017-11-23] VITALS (15 sets, daily range): BP systolic 116–147; BP diastolic 62–72; PULSE 48–153; RESP 12–19; TEMP 97.4–98.7; O2SAT 78–97
[2017-11-23] MEDS: METOPROLOL TARTRATE 5 MG/5 ML VIAL IV PUSH PRN ×3 (00:01→00:17)
[2017-11-23] MEDS ORDERED: SODIUM CHLOR 0.9% 1000 ML INJ 1,000 ML IV ONE (01:00)
[2017-11-23] MEDS ORDERED: LACTATED RINGER'S 1000 ML INJ 1,000 ML IV ONE (03:00)
[2017-11-23] MEDS: CHLORHEXIDINE GLUCONATE 2 % 1 PACK (2 CLOTHS) TOP SCH (03:14)
[2017-11-23 06:06] LABS: AUTOMATED NEUTROPHIL # 6.5 TH/MM3 (1.8-7.7); BASOPHIL % 0.1 % (0.0-2.0); HEMATOCRIT 29.7 % (39.0-51.0); LYMPHOCYTE # 0.1 TH/MM3 (1.0-4.8); MEAN CELL VOLUME 93.8 FL (80.0-100.0); MEAN CORPUSCULAR HEMOGLOBIN 31.6 PG (27.0-34.0); MEAN CORPUSCULAR HGB CONC 33.7 % (32.0-36.0); MEAN PLATELET VOLUME 11.3 FL (7.0-11.0); MONO % 2.5 % (0.0-8.0); MONOCYTE # 0.2 TH/MM3 (0-0.9); NEUT % 95.4 % (16.0-70.0); PLATELET COUNT 86 TH/MM3 (150-450); RED BLOOD COUNT 3.16 MIL/MM3 (4.50-5.90); RED CELL DISTRIBUTION WIDTH 18.4 % (11.6-17.2); WHITE BLOOD COUNT 6.8 TH/MM3 (4.0-11.0)
[2017-11-23] MEDS: hydrALAZINE HCL 50 MG TAB PO SCH ×3 (06:12→20:15)
[2017-11-23 06:23] LABS: ALBUMIN 2.3 GM/DL (3.4-5.0); ALKALINE PHOSPHATASE 94 U/L (45-117); ALT (GPT) 140 U/L (12-78); AST (GOT) 57 U/L (15-37); BICARBONATE 25.7 MEQ/L (21.0-32.0); BLOOD UREA NITROGEN 37 MG/DL (7-18); CALCIUM 7.7 MG/DL (8.5-10.1); CHLORIDE 111 MEQ/L (98-107); CREATININE 0.79 MG/DL (0.60-1.30); GLOMERULAR FILTRATION RATE 98 ML/MIN (>89); GLUCOSE,RANDOM 140 MG/DL (74-106); MAGNESIUM 2.4 MG/DL (1.5-2.5); PHOSPHORUS 3.1 MG/DL (2.5-4.9); SODIUM (NA) 146 MEQ/L (136-145); TOTAL BILIRUBIN ADULT 8.9 MG/DL (0.2-1.0); TOTAL PROTEIN 4.9 GM/DL (6.4-8.2)
[2017-11-23] MEDS: CHLORHEXIDINE 0.12% (ORAL KIT) 15 ML CUP MT SCH ×2 (08:00→20:00)
[2017-11-23] MEDS: BUDESONIDE-FORMOTEROL 160/4.5 MCG INHALER INH SCH ×2 (09:31→20:13)
[2017-11-23] MEDS: FUROSEMIDE 40 MG/4 ML VIAL IV PUSH SCH ×2 (09:32→20:14)
[2017-11-23] MEDS: DILTIAZEM-CD 240 MG CAP ER PO SCH (09:32)
[2017-11-23] MEDS: SODIUM CHLORIDE 0.9% FLUSH 10 ML FLUSH IV FLUSH SCH ×2 (09:32→20:14)
[2017-11-23] MEDS: NYSTATIN SUSP 500,000 U/5 ML CUP SWISH-SWAL SCH ×4 (09:32→20:15)
[2017-11-23] MEDS: FAMOTIDINE 20 MG TAB PO SCH ×2 (09:33→20:15)
[2017-11-23] MEDS: METOPROLOL TARTRATE 50 MG TAB PO SCH ×2 (09:33→20:14)
[2017-11-23] MEDS: SENNOSIDES 8.6 MG TAB PO SCH ×2 (09:33→20:16)
[2017-11-23] MEDS: guaiFENesin E.R. 600 MG TAB PO SCH ×2 (09:33→20:14)
[2017-11-23] MEDS: LACTULOSE SYRUP 20 GM/30 ML CUP PO PRN (11:24)
[2017-11-23] MEDS: methylPREDNISolone SOD SUCC 40 MG/1 ML VIAL IV PUSH SCH (11:32)
--- NOTE | 2017-11-23 14:35 | HHI.GIFU ---
Subjective Remarks Patient continues to tolerate nasal cannula at 3 L, O2 sat 91, up to high of 94 Patient is awake, complaints of generalized abdominal pain, remains taut, semifirm Right lateral biliary tube intact Afebrile, last hemoglobin checked 10. (Maura Lauren) Objective Vitals I&O Vital Signs Date Time Temp Pulse Resp B/P (MAP) Pulse Ox O2 Delivery O2 Flow Rate FiO2 11/23/17 12:41 91 Nasal Cannula 2.00 11/23/17 12:00 90 11/23/17 12:00 97.7 72 18 144/72 (96) 88 11/23/17 10:00 70 11/23/17 08:00 64 11/23/17 08:00 97.4 64 17 147/67 (93) 94 11/23/17 07:00 94 Nasal Cannula 3.00 11/23/17 06:00 59 11/23/17 04:00 98.6 48 12 136/63 (87) 97 11/23/17 04:00 49 11/23/17 02:00 109 11/23/17 00:00 150 11/23/17 00:00 98.7 153 15 116/68 (84) 96 11/22/17 22:55 16 11/22/17 22:00 69 11/22/17 20:00 81 11/22/17 20:00 98.0 62 12 138/65 (89) 91 11/22/17 19:45 92 Nasal Cannula 3.00 11/22/17 19:00 92 Nasal Cannula 3.00 11/22/17 18:00 41 11/22/17 16:00 98.0 71 17 140/62 (88) 92 11/22/17 16:00 41 I/O 11/22/17 11/22/17 11/22/17 11/23/17 11/23/17 11/23/17 06:59 14:59 22:59 06:59 14:59 22:59 Intake Total 350 ml 500 ml 2473 ml Output Total 1070 ml 880 ml 530 ml Balance -720 ml -380 ml 1943 ml Intake Oral 350 ml 500 ml 473 ml IV Total 2000 ml Output Urine Total 1000 ml 850 ml 500 ml Drainage Total 70 ml 30 ml 30 ml # Bowel Movements 0 2 1 Laboratory Laboratory Tests Test 11/22/17 14:33 11/23/17 04:48 White Blood Count 6.8 6.8 Red Blood Count 3.35 3.16 Hemoglobin 10.6 10.0 Hematocrit 31.2 29.7 Mean Corpuscular Volume 93.0 93.8 Mean Corpuscular Hemoglobin 31.6 31.6 Mean Corpuscular Hemoglobin Concent 34.0 33.7 Red Cell Distribution Width 18.5 18.4 Platelet Count 98 86 Mean Platelet Volume 10.7 11.3 Neutrophils (%) (Auto) 95.3 95.4 Lymphocytes (%) (Auto) 1.7 2.0 Monocytes (%) (Auto) 3.0 2.5 Eosinophils (%) (Auto) 0.0 0.0 Basophils (%) (Auto) 0.0 0.1 Neutrophils # (Auto) 6.5 6.5 Lymphocytes # (Auto) 0.1 0.1 Monocytes # (Auto) 0.2 0.2 Eosinophils # (Auto) 0.0 0.0 Basophils # (Auto) 0.0 0.0 CBC Comment AUTO DIFF AUTO DIFF Differential Comment AUTO DIFF CONFIRMED AUTO DIFF CONFIRMED Platelet Estimate LOW Platelet Morphology Comment NORMAL Blood Urea Nitrogen 38 37 Creatinine 0.89 0.79 Random Glucose 137 140 Total Protein 5.5 4.9 Albumin 2.9 2.3 Calcium Level 8.0 7.7 Phosphorus Level 2.9 3.1 Magnesium Level 2.5 2.4 Alkaline Phosphatase 92 94 Aspartate Amino Transf (AST/SGOT) 52 57 Alanine Aminotransferase (ALT/SGPT) 145 140 Total Bilirubin 10.1 8.9 Sodium Level 144 146 Potassium Level 3.1 3.5 Chloride Level 108 111 Carbon Dioxide Level 24.8 25.7 Anion Gap 11 9 Estimat Glomerular Filtration Rate 85 98 Date/Time Source Procedure Growth Status 10/30/17 20:38 Blood Peripheral Aerobic Blood Culture - Final NO GROWTH IN 5 DAYS Complete 10/30/17 20:38 Blood Peripheral Anaerobic Blood Culture - Final NO GROWTH IN 5 DAYS Complete 11/13/17 12:00 Fluid Pleural Fluid Gram Stain - Final Complete 11/13/17 12:00 Fluid Pleural Fluid Body Fluid Culture - Final NO GROWTH IN 72 HRS.--AEROBICALLY OR ... Complete 11/04/17 05:08 Stool Stool Stool Occult Blood (NUBIA) - Final HEMOCCULT POSITIVE Complete 10/31/17 10:40 Sputum Endotracheal Gram Stain - Final Complete 10/31/17 10:40 Sputum Endotracheal Sputum Culture - Final HEAVY GROWTH NORMAL RESPIRATORY TERRELL Complete 10/29/17 00:00 Urine Catheterized Urine Urine Culture - Final Enterococcus Faecalis Complete Imaging Last Impressions Abdomen/Pelvis CT 11/21/17 Signed Impressions: The retroperitoneal hematoma on the right is smaller from the prior examination . It previously measured 21 x 11 x 12 cm and now measures 21 x 8 x 11 cm. No ac ekwok hemorrhage appreciated. A drainage catheter is seen within the gallbladder fossa and the gallbladder is totally decompressed. This is stable in appearance from the prior study. No biliary dilatation. A 3 mm nonobstructing left renal stone noted. Bibasilar areas of consolidation affecting the left lower lobe to a greater degree than the right. This is stable. The left effusion is smaller f rom the prior exam. The right effusion is stable. Colonic diverticuli without a cute abnormality. CONCLUSION: 1. The retroperitoneal hematoma on the right is smaller from the prior study. 2. Drainage catheter within the right upper quadrant felt to relate to a doug cystostomy tube. No biliary dilatation. 3. Nonobstructing left renal stone. 4. Colonic diverticulosis. 5. Improving left effusion with unchanged right effusion. 6. Bibasilar consolidation appears stable. Chest X-Ray 11/18/17 Signed Impressions: CONCLUSION: Some improvement in the bibasilar infiltrates. Chest CT 11/12/17 Signed Impressions: CONCLUSION: 1. Bilateral pleural effusions left greater than right. Areas of infiltrate ve rsus atelectasis left lung base difficult to rule out a small superimposed pneu monia. 2. Dense coronary atherosclerotic disease. Chest Ultrasound 11/07/17 Signed Impressions: CONCLUSION: 1. Left-sided pleural effusion. Percutaneous Cholangiogram 11/01/17 Signed Impressions: CONCLUSION: 1. Uncomplicated percutaneous cholecystostomy as above. Renal Ultrasound 10/31/17 Signed Impressions: CONCLUSION: 1. No hydronephrosis. 2. Increased cortical echogenicity consistent with medical renal disease. Head Magnetic Resonance Angiography 10/31/17 Signed Impressions: CONCLUSION: 1. Unremarkable MRA of the brain. Head CT 10/31/17 Signed Impressions: CONCLUSION: 1. Negative CT Head non contrast. 2. No evidence of acute infarct, hemorrhage, mass or edema. Brain MRI 10/31/17 Signed Impressions: CONCLUSION: 1. Senescent changes with minimal periventricular ischemic white matter demyel ination. 2. No acute abnormality. Specifically, no acute infarction, mass or hemorrhage . Gall Bladder Ultrasound 10/30/17 Signed Impressions: CONCLUSION: 1. Fatty infiltration of the liver. 2. Multiple stones in the gallbladder. No biliary tract obstruction. Extremity Arterial Study 10/28/17 Signed Impressions: CONCLUSION: 1. Abnormal ABIs, left greater than right. The left DAVID is significantly dimin ished at 0.14. Aorta w/Runoff CTA 10/28/17 Signed Impressions: Service Date/Time: Saturday, October 28, 2017 21:50 - CONCLUSION: 1. Acute occlusion of the left inflow with concern for short segment occlusion involving the distal right inflow. This raises concern for an embolic event. 2. Right lower extremity shows scattered disease throughout the common femoral artery, SFA and [id number] popliteal artery with three-vessel runoff to the foot. 3. Left lower extremity with reconstitution of the common femoral artery with diseased out flow and two vessel runoff to the foot as detailed above. 4. 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 5. Hepatic steatosis. 6. Cholelithiasis. Juanjose cMkeon Jr., MD Physical Exam HEENT: Normocephalic; atraumatic obese CHEST low volumes but appears to be compensating, diminished breath sounds CARDIAC: RRR ABDOMEN: Distended, taut, semi-firm, nontender to light palpation, bowel sounds active. SKIN: Normal; no rash; no jaundice. [employer]: Awake, answers questions appropriately (Maura Lauren) Assessment and Plan Assessment: (1) Sepsis ICD Codes: A41.9 - Sepsis, unspecified organism Status: Acute Plan Assessment: - Choledocholithiasis with elevated LFTs, trending down CT abdomen WO IV contrast (11/01) --> Gallstones, appears to be areas of increased density within the common bile duct concerning for choledocholithiasis. S/P IR for percutaneous cholecystostomy drain on 11/01 - Culture with heavy growth of gram positive and gram negative enteric terrell, no further work up Pt on Unasyn - Elevated LFTs- likely secondary to obstruction from above but liver work up pending Iron-145 TIBC-214 %sat-67.7 Ferritin-248 AFP-6.9 Hepatitis panel negative [place], AMA, ASMA negative. AAT-215 Ceruloplasmin-24 - Anemia, normocytic- with Hemoccult positive stools- no obvious GIB - Cold left leg- Heparin gtt - now discontinued (11/18) Pt was initially planned for ERCP today, however, pt is on high flow NC and is too unstable for endoscopic procedures. No repeat labs from today but H/H has been stable over the past few days, no reports of GIB 11/22/2017 patient was reevaluated now that he is able to manage nasal cannula at 3 L. Plan for ERCP Saturday a.m. consent to be done Saturday O2 sat 91-94. Abdomen continues to be semi-firm round, but no abdominal pain 11/23/2017 patient continues to tolerate oxygen at 3 L with O2 sats between 91 and 94. Complaints of some generalized abdominal pain which continues to be taut in semifirm. Plan is for ERCP Saturday as long as patient's respiratory status is controlled. GI will continue to evaluate. Current labs show mild decrease in bilirubin 8.9, AST 57, ALT 140 ,mild gradual improvement Plan Consent for ERCP Saturday a.m. Diet per attending Anti-emetics Monitor labs Supportive care Further recommendations to follow after ERCP Pt has been seen and examined by myself and Dr. Coats and this note is written on his behalf (Maura Lauren) Physician Comments Seen with Mauar plan as above. Will plan for ERCP Saturday if continued to be stable. Further recommendations to follow. (James Coats MD) Problem Qualifiers (1) Sepsis: Qualified Codes: A41.9 - Sepsis, unspecified organism Maura Lauren Nov 23, 2017 14:35 James Coats MD Nov 24, 2017 10:01
--- NOTE | 2017-11-23 19:09 | HHI.CCPN ---
Subjective Remarks/Hospital Course 67-year-old male presents to the emergency department via EMS for evaluation of shortness of breath and pain and numbness to the left leg. Patient believes that he is shortness of breath is related to the pain in his leg. He cannot feel his leg from his groin down. He denies any history of the same. He does report history of COPD. He denies any known fevers or chills. He denies chest pain. Patient received 1 L normal saline bolus via EMS. Patient denies any history of bleeding or blood clots. No recent surgery or travel. No hemoptysis. No history of DVT/PE. He denies leg edema. Patient states the pain is 10/10 to the left leg. No exacerbating or alleviating factors. Moderate severity. 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 The right inflow is heavily diseased as well. The patient was evaluated by vascular surgeon second officer and was immediately started on heparin drip. SUBJ 10/29: Remains critically ill, encephalopathy. 4 out of 4 bottles positive for GNR. I will change Rocephin to Zosyn renally dosed to cover for Pseudomonas also. Continue azithromycin. Creatinine still elevated but slightly improved. WBC count slightly increased 17.2 now with 24% bands. Source of GNR sepsis could be either UTI or pneumonia. Will consult ID as well. Remains on IV heparin for acute left limb ischemia 10/30: platelets falling >50% again today. Cr still rising, but could be ATN/ contrast nephropathy. blood cultures growing e. coli by PCR, full speciation to follow. urine culture pending. discussed case with Dr. Lopez, will stop heparin , start argatroban and send HIT/CHARLEEN. denies complaints for me, but does have objective tenderness on palpation, RUQ. 10/31: Emergently intubated today a.m. by Dr. Puckett for worsening mental status, encephalopathy and worsening respiratory failure. Prior to intubation Dr. Puckett ' exam revealed right upper quadrant tenderness. Ultrasound of the gallbladder yesterday showed gallstones. Overnight Argatroban was supratherapeutic and was held, platelet count also dropped to 30,000, HIT screen is pending. Postintubation bilateral pupils are reactive but unequal. Will repeat CT of the head, CT abdomen pelvis. BUN 49/Creat 2.7, leukocytosis persisting 11/01: no improvements. ct abd/pelvis with evidence of possible choledocholithiasis. perc doug tube planned for this AM. on esmolol infusion for afib RVR. fio2 increased to 70%. 11/02: Sodium bicarbonate infusion continued per nephrology in the setting of rhabdomyolysis serial creatinine kinase pending. Cholecystostomy drain placement 100 cc overnight. Continued thrombocytopenia, CBC, serotonin release assay pending. Plan for reinitiation of heparin awaiting GI consultation for possible invasive procedures prior to restarting heparin. Patient sinus rhythm with occasional PAC's. 11/03: No acute events overnight. Sodium bicarbonate infusion discontinued this a.m. had any improved this a.m.. Chest x-ray showed worsening consolidation, FiO2 requirements were increased to 65% during the night. CPAP trials on hold currently. Biliary drainage from cholecystostomy tube revealing gram-negative rods. The patient continues on antibiotics. Bilateral dorsalis pedis pulses monophasic signals by Doppler. Heparin infusion reinitiated. 11/04: Sodium bicarbonate infusion discontinued at 7 AM yesterday. Chest x-ray worsening consolidation versus pleural effusions. FiO2 slightly decreased to 60 %, ABG improving. Pending quantification via ultrasound of pleural fluid in am. Lasix 40mg x1 additional dose provided today . PPN discontinued discussed with Dr. Colon tube feeds initiated at [facility]. Dietary consult ordered. 11/05: Afebrile. Patient tolerating tube feeds advanced to goal rate of 55 cc/ hr. chest x-ray with slight improvement FiO2 decreased to 55% ABG pending. Initiation of CPAP trial to be attempted today. 11/06: Late entry note. Patient seen at 628am. Patient was started on CPAP and continues on CPAP greater than 10 hours. Patient following commands, currently on Precedex infusion. 11/07: Patient remained on CPAP trials for approximately 12 hours yesterday and discontinued because of agitation. CPAP trials reinitiated this a.m. Patient complaint of sore throat Lortab ordered. Patient continues on Precedex for ventilator weaning process. Chest x-ray still shows pulmonary edema, additional dose Lasix 401 dose given this a.m.. When infusion continued, monophasic Doppler signals bilateral dorsalis pedal pulses noted. 11/08: Afebrile . Patient successfully extubated yesterday. Remains on O2 at 4 L nasal cannula O2 saturation 94-95%. Patient continues on heparin infusion, she was noted to have 9 BMs last evening plan for serial H&H's concern for possible stool with occult blood. Repeat stool for occult blood. Plan for possible bedside thoracentesis ,if respiratory requirements increase, currently on O2 4 L via nasal cannula in no apparent distress. 11/11 Late entry, notified of re-consult at 17:[address] Johnson, saw patient and immediately placed L IJ CVL because patient had ripped out an IV and had insufficient peripheral IV access given clinical condition. RN states patient had Hgb 7.5 this morning. Trend was unusual with Hb 8.3--> 12.5 (without transfusion)-->7.5 and lab recommended repeat. Repeat was drawn and was 4.2. Meanwhile, while awaiting re-draw patient became hypotensive, MAP down in the 40s, and was given albumin 25 gram IV. Now he has received 1 unit PRBC and BP improved to 120s/60s. Getting 2 additional units of PRBC stat. Nurse states heparin has been off since 12:30. Sending stat coags/fibrinogen. Patient denies nausea or vomiting. He has some right-sided abdominal pain. There is dark brown drainage from cholecystostomy tube. He has not had a bowel movement in 48 hours. No obvious evidence of GI bleeding. CT abdomen and pelvis has been ordered as "urgent", now giving additional PRBC and then will obtain stat. Gastroenterology has been following and I have notified them of the anemia, though this does not appear to be GI source at this time. 11/12 CT last night showed large retroperitoneal hematoma. Transfused total of 3 units PRBC yest evening. Hgb now 8.3. Coags/fibrinogen in acceptable range this morning, heparin drip off. Patient states much less abdominal pain today. He is alert and oriented now. Coughing, O2 requirement up to 6 L NC, afebrile. 11/13 Had some hemoptysis yesterday. CT with bilateral pleural effusions/ LLL atelectasis vs infiltrate. Now on 8 L SM, tachypneic with more labored breathing today. Edematous, will diurese. He is alert and capacitated currently and agrees to L pleural drainage. Transfused 1 unit PRBC yesterday for Hgb 7.4. He still has some Right sided abdominal pain 11/14: Resting in bed on simple facemask. Hemoglobin 6.9 this morning. Patient denies any worsening shortness of breath or chest pain. 1 unit PRBCs being transfused. Left-sided pigtail catheter placed 11/13 drain 650 cc 11/15 Remains on simple mask, breathing a little labored. L pigtail catheter output is serous, 270 last 24 hours. Planned to tap R pleural effusion but when performed u/s the fluid had decreased significantly and did not appear amenable to drainage; continue diuresis. Labs are pending, nurse is about to draw them. Afebrile 11/16 Diuresing, creatinine stable. On NC. Afebrile. L Chest tube output 220. Hgb 7.6 from 8.8. Transfusing 1 unit PRBC. Noted lipase 827. Patient denies n/v /abdominal tenderness. He says he is feeling "much better" and denies abd pain. 11/17 Chest tube removed yesterday without complication. Labored breathing when he got OOB overnight. He is tired of wearing simple mask so he wants to try HFNC. Depressed today, is worried his ERCP will get canceled. Wants to get out of the hospital. Case management working on transfer to [facility] when cleared following ERCP. 11/18 Patient is on high flow oxygen with 70% FIO2. For ERCP today. 11/19 No events overnight. ERCP wasn't done yesterday as patient is on high flow oxygen. Remains on 25L with 70% FIO2. Afebrile. 11/20: no acute events. tolerating a diet. on high flow NC at 70% fio2. not dyspneic. Subjective: 11/21: repeat CT abd/pelvis with interval decrease in size of hematoma. no other changes. remains on HFNC despite diuresis. 11/22 No events overnight. Down to 3L oxygen with good sats. Afebrile. 11/23: remains on 3L o2 by NC. denies complaints. plan for ERCP saturday. Objective Vital Signs Date Time Temp Pulse Resp B/P (MAP) Pulse Ox O2 Delivery O2 Flow Rate FiO2 11/23/17 18:00 61 11/23/17 16:00 97.6 19 120/62 (81) 89 11/23/17 12:41 Nasal Cannula 2.00 11/21/17 07:54 80 Intake and Output 11/23/17 11/23/17 11/24/17 08:00 16:00 00:00 Intake Total 2473 ml 960 ml Output Total 530 ml 726 ml Balance 1943 ml 234 ml Result Diagram: 11/23/17 0448 11/23/17 0448 Imaging Last Impressions Abdomen/Pelvis CT 11/21/17 0000 Signed Impressions: The retroperitoneal hematoma on the right is smaller from the prior examination . It previously measured 21 x 11 x 12 cm and now measures 21 x 8 x 11 cm. No ac lito hemorrhage appreciated. A drainage catheter is seen within the gallbladder fossa and the gallbladder is totally decompressed. This is stable in appearance from the prior study. No biliary dilatation. A 3 mm nonobstructing left renal stone noted. Bibasilar areas of consolidation affecting the left lower lobe to a greater degree than the right. This is stable. The left effusion is smaller f rom the prior exam. The right effusion is stable. Colonic diverticuli without a cute abnormality. CONCLUSION: 1. The retroperitoneal hematoma on the right is smaller from the prior study. 2. Drainage catheter within the right upper quadrant felt to relate to a doug cystostomy tube. No biliary dilatation. 3. Nonobstructing left renal stone. 4. Colonic diverticulosis. 5. Improving left effusion with unchanged right effusion. 6. Bibasilar consolidation appears stable. Chest X-Ray 11/18/17 0000 Signed Impressions: CONCLUSION: Some improvement in the bibasilar infiltrates. Chest CT 11/12/17 Signed Impressions: CONCLUSION: 1. Bilateral pleural effusions left greater than right. Areas of infiltrate ve rsus atelectasis left lung base difficult to rule out a small superimposed pneu monia. 2. Dense coronary atherosclerotic disease. Chest Ultrasound 11/07/17 Signed Impressions: CONCLUSION: 1. Left-sided pleural effusion. Percutaneous Cholangiogram 11/01/17 Signed Impressions: CONCLUSION: 1. Uncomplicated percutaneous cholecystostomy as above. Renal Ultrasound 10/31/17 Signed Impressions: CONCLUSION: 1. No hydronephrosis. 2. Increased cortical echogenicity consistent with medical renal disease. Head Magnetic Resonance Angiography 10/31/17 Signed Impressions: CONCLUSION: 1. Unremarkable MRA of the brain. Head CT 10/31/17 0000 Signed Impressions: CONCLUSION: 1. Negative CT Head non contrast. 2. No evidence of acute infarct, hemorrhage, mass or edema. Brain MRI 10/31/17 Signed Impressions: CONCLUSION: 1. Senescent changes with minimal periventricular ischemic white matter demyel ination. 2. No acute abnormality. Specifically, no acute infarction, mass or hemorrhage . Gall Bladder Ultrasound 10/30/17 Signed Impressions: CONCLUSION: 1. Fatty infiltration of the liver. 2. Multiple stones in the gallbladder. No biliary tract obstruction. Extremity Arterial Study 10/28/17 Signed Impressions: CONCLUSION: 1. Abnormal ABIs, left greater than right. The left DAVID is significantly dimin ished at 0.14. Aorta w/Runoff CTA 10/28/17 Signed Impressions: Service Date/Time: Saturday, October 28, 2017 21:50 - CONCLUSION: 1. Acute occlusion of the left inflow with concern for short segment occlusion involving the distal right inflow. This raises concern for an embolic event. 2. Right lower extremity shows scattered disease throughout the common femoral artery, SFA and [id number] popliteal artery with three-vessel runoff to the foot. 3. Left lower extremity with reconstitution of the common femoral artery with diseased out flow and two vessel runoff to the foot as detailed above. 4. 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 5. Hepatic steatosis. 6. Cholelithiasis. Juanjose Mckeon Jr., MD Objective Remarks GENERAL: middle-aged male, lying in bed, alert and conversant. SKIN: Warm and dry. HEAD: Normocephalic. ENT: + scleral icterus. No injection or drainage. Pupils equal, reactive NECK: Supple, trachea midline. No JVD. CARDIOVASCULAR: Regular, rate in the 70s. sinus. RESPIRATORY: unlabored. 3L nc. no accessory muscle use. equal chest rise. GASTROINTESTINAL: Abdomen distended, no tenderness to palpation. bowel sounds present. Cholecystostomy tube is in place . No flank hematoma. MUSCULOSKELETAL: No cyanosis, 1+ bipedal edema. Bilateral DP with Doppler pulses. Discoloration of left fifth toe. Bruising of right distal forearm and ecchymosis finger tips of right hand with 1+ right hand edema, palpable radial pulse and good wound care physician. NEURO EXAM: Eyes open, makes eye contact. Oriented to person, place, year. Moves all extremities with no focal deficit A/P Assessment and Plan ASSESSMENT/PLAN: NEURO: Acute metabolic encephalopathy, improved Awake and alert -Lortab as needed for pain -10/31 CT of the head- negative -10/31MRI minimal periventricular ischemic white matter change no acute abnormality RESP: COPD exacerbation, resolved Left lower lobe pneumonia, resolved ARDS, resolved Respiratory distress, improved. Bilateral pleural effusions. -Emergently intubated and placed on mechanical ventilation 10/31/2017. Extubated 11/07/17. Continue with oxygen keep sats >92% -L pigtail chest tube placed with initially 600 mL of serosanginous output. Respiratory status improved. pleural fluid culture negative,pathology pending. Chest tube removed 11/17 -U/s R pleural effusion on 11/15 - not amenable to drainage. Continue Symbicort 160/4.52 puffs inhaled every 12 hours Incentive spirometry every hour awake, Acapella. Continue Solumedrol 40 mg IV q12 . Guaifenesin [address] twice daily Dr. Johnson following CVS: Hemorrhagic shock, resolved. Secondary to R retroperitoneal hematoma Lactic acidemia- resolved Acute on chronic left limb ischemia, improved Paroxysmal atrial fibrillation HTN -CTA showed severe aorto-iliac occlusive disease with left iliac thrombosis. Dr. Lopez evaluated, may need ax-fem bypass at some point but not during this hospitalization. -No longer a candidate for anticoagulation, ASA/Plavix recommended when patient stabilized. Now off antiplatelets both due to large RP bleed and now planned ERCP. GI requests antiplatets on hold at least 5 days for ERCP. after GI completes work-up, would re-initiate ASA. -Significant calcifications and peripheral vascular disease -2D echo: EF 50%, no significant valvular lesions. left sided pleural effusion -HIT screen negative. CHARLEEN -negative -Continue Cardizem 240 mg p.o. daily, Hydralazine 50mg Q8, Lopressor 50mg Q12 GI Acute hepatic dysfunction Hyperbilirubinemia Transaminitis Acute Choledocholithiasis R retroperitoneal hematoma -Monitor LFT's and Lipase level- ERCP when O2 requirements is better Repeat CT abd/pelvis 11/21: The retroperitoneal hematoma on the right is smaller from the prior study. Drainage catheter within the right upper quadrant in place , No biliary dilatation. Nonobstructing left renal stone. Colonic diverticulosis - gallbladder ultrasound showed multiple gallstones -Retroperitoneal hematoma on 11/11 while on heparin drip, CT with large R retroperitoneal hematoma. Manage medically, repeat CT abd/pelvis 11/21: interval decrease in size of hematoma. - Gen Surgery following. -CT abdomen/pelvis 11/01: c/w choledocholithiasis - Perc cholecystostomy tube placed 11/01 by IR- Monitor drainage -Eventual cholecystectomy when stabilized. Dr. Martins has seen. ERCP saturday. FEN/RENAL Acute kidney injury- resolved Monitor renal function, I/O's, electrolytes replacement as needed Continue diuresis with Lasix 40 mg IV q12. Nephrology has signed off. ID E COLI bacteremia/severe sepsis, resolved Enterococcus in the urine: possible colonization vs. UTI. Acute Choledocholithiasis/ Cholangitis Biliary fluid gram-negative rods Cholecystostomy placed 11/01. Completed abx course per ID: Unasyn discontinued 11/13. Monitor for signs of infections ( Fever, WBC) HEME: Acute blood loss anemia overlying anemia of chronic disease acute thrombocytopenia: Initially consumptive secondary to sepsis earlier during admission then consumptive secondary to acute blood loss. - HIT negative. CHARLEEN negative 10/30. Heparin on hold since 11/11. Monitor coags, transfuse blood products as indicated. 3 units PRBC 11/11. 1 unit 11/12. 1 unit PRBCs ordered for hemoglobin 6.9 on 11/14. 1 unit PRBC 11/16 DVT GI prophylaxis -Vickey's and SCDs -Heparin infusion on hold due to bleeding/thrombocytopenia. ACCESS: . PIV Placed emergent left IJ central venous line 11/11-11/[address] Puckett: Patient states he agrees to reintubation if needed. In the setting of pulseless arrest he would not want CPR, shocks, intubation, ACLS drugs. CODE STATUS is alternate code intubation only. Patient's sister states that he has designated her as healthcare surrogate. He has advanced directives. Palliative care following. PT/OT dispo: consult hospitalist service. can likely transfer out of ICU. Didier Rahman MD Nov 23, 2017 19:09
[2017-11-23] MEDS: HYDROmorphone HCL PF 0.5 MG/0.5 ML SYRINGE IV PRN (21:12)
[2017-11-24] VITALS (14 sets, daily range): BP systolic 130–164; BP diastolic 63–77; PULSE 46–89; RESP 10–19; TEMP 97.4–98; O2SAT 89–94
[2017-11-24] MEDS: methylPREDNISolone SOD SUCC 40 MG/1 ML VIAL IV PUSH SCH ×2 (00:01→11:53)
[2017-11-24] MEDS: CHLORHEXIDINE GLUCONATE 2 % 1 PACK (2 CLOTHS) TOP SCH (03:10)
[2017-11-24] MEDS: hydrALAZINE HCL 50 MG TAB PO SCH ×3 (06:02→20:32)
[2017-11-24 06:24] LABS: HEMATOCRIT 31.8 % (39.0-51.0); HEMOGLOBIN 10.7 GM/DL (13.0-17.0); MEAN CELL VOLUME 93.3 FL (80.0-100.0); MEAN CORPUSCULAR HEMOGLOBIN 31.3 PG (27.0-34.0); MEAN CORPUSCULAR HGB CONC 33.6 % (32.0-36.0); MEAN PLATELET VOLUME 11.6 FL (7.0-11.0); PLATELET COUNT 82 TH/MM3 (150-450); RED BLOOD COUNT 3.41 MIL/MM3 (4.50-5.90); RED CELL DISTRIBUTION WIDTH 18.7 % (11.6-17.2); WHITE BLOOD COUNT 7.5 TH/MM3 (4.0-11.0)
[2017-11-24 06:41] LABS: BICARBONATE 25.5 MEQ/L (21.0-32.0); CALCIUM 8.2 MG/DL (8.5-10.1); CREATININE 0.77 MG/DL (0.60-1.30)
[2017-11-24] MEDS: CHLORHEXIDINE 0.12% (ORAL KIT) 15 ML CUP MT SCH ×2 (08:00→20:00)
[2017-11-24] MEDS: BUDESONIDE-FORMOTEROL 160/4.5 MCG INHALER INH SCH ×2 (08:15→20:31)
[2017-11-24] MEDS: FAMOTIDINE 20 MG TAB PO SCH ×2 (08:16→20:32)
[2017-11-24] MEDS: SODIUM CHLORIDE 0.9% FLUSH 10 ML FLUSH IV FLUSH SCH ×2 (08:16→20:31)
[2017-11-24] MEDS: NYSTATIN SUSP 500,000 U/5 ML CUP SWISH-SWAL SCH ×4 (08:16→20:32)
[2017-11-24] MEDS: guaiFENesin E.R. 600 MG TAB PO SCH ×2 (08:17→20:32)
[2017-11-24] MEDS: FUROSEMIDE 40 MG/4 ML VIAL IV PUSH SCH ×2 (08:17→20:32)
[2017-11-24] MEDS: METOPROLOL TARTRATE 50 MG TAB PO SCH ×2 (08:17→20:32)
[2017-11-24] MEDS: DILTIAZEM-CD 240 MG CAP ER PO SCH (08:17)
[2017-11-24] MEDS: LACTULOSE SYRUP 20 GM/30 ML CUP PO PRN (08:19)
[2017-11-24] MEDS: SENNOSIDES 8.6 MG TAB PO SCH (09:38)
--- NOTE | 2017-11-24 14:56 | HHI.PR ---
Subjective Remarks Patient laying in bed, denied chest pain or short of breath is on O2 nasal cannula No fever or chills, he elected only intubation as an alternative code Objective Vitals Vital Signs Date Time Temp Pulse Resp B/P (MAP) Pulse Ox O2 Delivery O2 Flow Rate FiO2 11/24/17 14:00 68 11/24/17 12:00 97.9 70 13 130/63 (85) 92 11/24/17 12:00 70 11/24/17 10:00 79 11/24/17 08:00 57 11/24/17 08:00 97.4 57 10 154/72 (99) 89 11/24/17 07:47 91 Nasal Cannula 3.00 11/24/17 07:00 90 Nasal Cannula 3.00 11/24/17 06:00 80 11/24/17 04:00 47 11/24/17 04:00 97.6 59 14 164/76 (105) 94 11/24/17 02:00 46 11/24/17 00:00 46 11/24/17 00:00 97.7 48 19 142/65 (90) 94 11/23/17 22:00 52 11/23/17 21:55 12 11/23/17 20:10 92 Nasal Cannula 3.00 11/23/17 20:00 59 11/23/17 20:00 98.4 61 19 147/69 (95) 78 11/23/17 19:00 59 11/23/17 19:00 87 Nasal Cannula 3.00 11/23/17 18:00 61 11/23/17 16:00 97.6 68 19 120/62 (81) 89 11/23/17 16:00 68 I/O 11/23/17 11/23/17 11/23/17 11/24/17 11/24/17 11/24/17 07:00 15:00 23:00 07:00 15:00 23:00 Intake Total 2473 ml 960 ml Output Total 530 ml 726 ml 730 ml Balance 1943 ml 234 ml -730 ml Intake Oral 473 ml 960 ml IV Total 2000 ml Output Urine Total 500 ml 725 ml 700 ml Stool Total 0 ml Drainage Total 30 ml 1 ml 30 ml # Bowel Movements 1 0 Result Diagram: 11/24/1716 11/24/17515 Objective Remarks GENERAL: This is a well-nourished, well-developed patient, in no apparent distress. HEENT: Mildly icterus sclera CARDIOVASCULAR: RRR, no gallops, or rubs. RESPIRATORY: Positive wheezing bilaterally GASTROINTESTINAL: Abdomen soft, non-tender, nondistended. Positive bowel sounds MUSCULOSKELETAL: Extremities without clubbing, cyanosis, +3 edema. Pedal pulses appreciated NEUROLOGICAL: Awake and alert. Moves all extremity. Normal speech.no focal neurological deficit A/P Problem List: (1) Pneumonia ICD Code: J18.9 - Pneumonia, unspecified organism Status: Acute (2) Sepsis ICD Code: A41.9 - Sepsis, unspecified organism Status: Acute (3) Ischemia of left lower extremity ICD Code: I99.8 - Other disorder of circulatory system Status: Acute Assessment and Plan 67-year-old male presents to the emergency department via EMS for evaluation of shortness of breath and pain and numbness to the left leg. Patient believes that he is shortness of breath is related to the pain in his leg. He cannot feel his leg from his groin down. He denies any history of the same. He does report history of COPD. He denies any known fevers or chills. He denies chest pain. Patient received 1 L normal saline bolus via EMS. Patient denies any history of bleeding or blood clots. No recent surgery or travel. No hemoptysis. No history of DVT/PE. He denies leg edema. Patient states the pain is 10/10 to the left leg. No exacerbating or alleviating factors. Moderate severity. 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 The right inflow is heavily diseased as well. The patient was evaluated by vascular surgeon cooperative education coordinator and was immediately started on heparin drip. SUBJ 10/29: Remains critically ill, encephalopathy. 4 out of 4 bottles positive for GNR. I will change Rocephin to Zosyn renally dosed to cover for Pseudomonas also. Continue azithromycin. Creatinine still elevated but slightly improved. WBC count slightly increased 17.2 now with 24% bands. Source of GNR sepsis could be either UTI or pneumonia. Will consult ID as well. Remains on IV heparin for acute left limb ischemia 10/30: platelets falling >50% again today. Cr still rising, but could be ATN/ contrast nephropathy. blood cultures growing e. coli by PCR, full speciation to follow. urine culture pending. discussed case with Dr. Lopez, will stop heparin , start argatroban and send HIT/CHARLEEN. denies complaints for me, but does have objective tenderness on palpation, RUQ. 10/31: Emergently intubated today a.m. by Dr. Puckett for worsening mental status, encephalopathy and worsening respiratory failure. Prior to intubation Dr. Puckett ' exam revealed right upper quadrant tenderness. Ultrasound of the gallbladder yesterday showed gallstones. Overnight Argatroban was supratherapeutic and was held, platelet count also dropped to 30,000, HIT screen is pending. Postintubation bilateral pupils are reactive but unequal. Will repeat CT of the head, CT abdomen pelvis. BUN 49/Creat 2.7, leukocytosis persisting 11/01: no improvements. ct abd/pelvis with evidence of possible choledocholithiasis. perc doug tube planned for this AM. on esmolol infusion for afib RVR. fio2 increased to 70%. 11/02: Sodium bicarbonate infusion continued per nephrology in the setting of rhabdomyolysis serial creatinine kinase pending. Cholecystostomy drain placement 100 cc overnight. Continued thrombocytopenia, CBC, serotonin release assay pending. Plan for reinitiation of heparin awaiting GI consultation for possible invasive procedures prior to restarting heparin. Patient sinus rhythm with occasional PAC's. 11/03: No acute events overnight. Sodium bicarbonate infusion discontinued this a.m. had any improved this a.m.. Chest x-ray showed worsening consolidation, FiO2 requirements were increased to 65% during the night. CPAP trials on hold currently. Biliary drainage from cholecystostomy tube revealing gram-negative rods. The patient continues on antibiotics. Bilateral dorsalis pedis pulses monophasic signals by Doppler. Heparin infusion reinitiated. 11/04: Sodium bicarbonate infusion discontinued at 7 AM yesterday. Chest x-ray worsening consolidation versus pleural effusions. FiO2 slightly decreased to 60 %, ABG improving. Pending quantification via ultrasound of pleural fluid in am. Lasix 40mg x1 additional dose provided today . PPN discontinued discussed with Dr. Colon tube feeds initiated at [place]. Dietary consult ordered. 11/05: Afebrile. Patient tolerating tube feeds advanced to goal rate of 55 cc/ hr. chest x-ray with slight improvement FiO2 decreased to 55% ABG pending. Initiation of CPAP trial to be attempted today. 11/06: Late entry note. Patient seen at 628am. Patient was started on CPAP and continues on CPAP greater than 10 hours. Patient following commands, currently on Precedex infusion. 11/07: Patient remained on CPAP trials for approximately 12 hours yesterday and discontinued because of agitation. CPAP trials reinitiated this a.m. Patient complaint of sore throat Lortab ordered. Patient continues on Precedex for ventilator weaning process. Chest x-ray still shows pulmonary edema, additional dose Lasix 401 dose given this a.m.. When infusion continued, monophasic Doppler signals bilateral dorsalis pedal pulses noted. 11/08: Afebrile . Patient successfully extubated yesterday. Remains on O2 at 4 L nasal cannula O2 saturation 94-95%. Patient continues on heparin infusion, she was noted to have 9 BMs last evening plan for serial H&H's concern for possible stool with occult blood. Repeat stool for occult blood. Plan for possible bedside thoracentesis ,if respiratory requirements increase, currently on O2 4 L via nasal cannula in no apparent distress. 11/11 Late entry, notified of re-consult at 17:[address] Johnson, saw patient and immediately placed L IJ CVL because patient had ripped out an IV and had insufficient peripheral IV access given clinical condition. RN states patient had Hgb 7.5 this morning. Trend was unusual with Hb 8.3--> 12.5 (without transfusion)-->7.5 and lab recommended repeat. Repeat was drawn and was 4.2. Meanwhile, while awaiting re-draw patient became hypotensive, MAP down in the 40s, and was given albumin 25 gram IV. Now he has received 1 unit PRBC and BP improved to 120s/60s. Getting 2 additional units of PRBC stat. Nurse states heparin has been off since 12:30. Sending stat coags/fibrinogen. Patient denies nausea or vomiting. He has some right-sided abdominal pain. There is dark brown drainage from cholecystostomy tube. He has not had a bowel movement in 48 hours. No obvious evidence of GI bleeding. CT abdomen and pelvis has been ordered as "urgent", now giving additional PRBC and then will obtain stat. Gastroenterology has been following and I have notified them of the anemia, though this does not appear to be GI source at this time. 11/12 CT last night showed large retroperitoneal hematoma. Transfused total of 3 units PRBC yest evening. Hgb now 8.3. Coags/fibrinogen in acceptable range this morning, heparin drip off. Patient states much less abdominal pain today. He is alert and oriented now. Coughing, O2 requirement up to 6 L NC, afebrile. 11/13 Had some hemoptysis yesterday. CT with bilateral pleural effusions/ LLL atelectasis vs infiltrate. Now on 8 L SM, tachypneic with more labored breathing today. Edematous, will diurese. He is alert and capacitated currently and agrees to L pleural drainage. Transfused 1 unit PRBC yesterday for Hgb 7.4. He still has some Right sided abdominal pain 11/14: Resting in bed on simple facemask. Hemoglobin 6.9 this morning. Patient denies any worsening shortness of breath or chest pain. 1 unit PRBCs being transfused. Left-sided pigtail catheter placed 11/13 drain 650 cc 11/15 Remains on simple mask, breathing a little labored. L pigtail catheter output is serous, 270 last 24 hours. Planned to tap R pleural effusion but when performed u/s the fluid had decreased significantly and did not appear amenable to drainage; continue diuresis. Labs are pending, nurse is about to draw them. Afebrile 11/16 Diuresing, creatinine stable. On NC. Afebrile. L Chest tube output 220. Hgb 7.6 from 8.8. Transfusing 1 unit PRBC. Noted lipase 827. Patient denies n/v /abdominal tenderness. He says he is feeling "much better" and denies abd pain. 11/17 Chest tube removed yesterday without complication. Labored breathing when he got OOB overnight. He is tired of wearing simple mask so he wants to try HFNC. Depressed today, is worried his ERCP will get canceled. Wants to get out of the hospital. Case management working on transfer to [facility] when cleared following ERCP. 11/18 Patient is on high flow oxygen with 70% FIO2. For ERCP today. 11/19 No events overnight. ERCP wasn't done yesterday as patient is on high flow oxygen. Remains on 25L with 70% FIO2. Afebrile. 11/20: no acute events. tolerating a diet. on high flow NC at 70% fio2. not dyspneic. Subjective: 11/21: repeat CT abd/pelvis with interval decrease in size of hematoma. no other changes. remains on HFNC despite diuresis. 11/22 No events overnight. Down to 3L oxygen with good sats. Afebrile. 11/23: remains on 3L o2 by NC. denies complaints. plan for ERCP saturday. --- Patient transferred to medical floor 11/24: Still on 3 L nasal cannula, no acute issue, plan for ERCP Saturday, continue monitoring temperature, downsize antibiotic, mild hypernatremia with repeat BMP in a.m. A/P: NEURO: Acute metabolic encephalopathy, improved Awake and alert -Lortab as needed for pain -10/31 CT of the head- negative -10/31MRI minimal periventricular ischemic white matter change no acute abnormality RESP: COPD exacerbation, resolved Left lower lobe pneumonia, resolved ARDS, resolved Respiratory distress, improved. Bilateral pleural effusions. -Emergently intubated and placed on mechanical ventilation 10/31/2017. Extubated 11/07/17. Continue with oxygen keep sats >92% -L pigtail chest tube placed with initially 600 mL of serosanginous output. Respiratory status improved. pleural fluid culture negative,pathology pending. Chest tube removed 11/17 -U/s R pleural effusion on 11/15 - not amenable to drainage. Continue Symbicort 160/4.52 puffs inhaled every 12 hours Incentive spirometry every hour awake, Acapella. Continue Solumedrol 40 mg IV q12 . Guaifenesin [address] twice daily Dr. Johnson following CVS: Hemorrhagic shock, resolved. Secondary to R retroperitoneal hematoma Lactic acidemia- resolved Acute on chronic left limb ischemia, improved Paroxysmal atrial fibrillation HTN -CTA showed severe aorto-iliac occlusive disease with left iliac thrombosis. Dr. Lopez evaluated, may need ax-fem bypass at some point but not during this hospitalization. -No longer a candidate for anticoagulation, ASA/Plavix recommended when patient stabilized. Now off antiplatelets both due to large RP bleed and now planned ERCP. GI requests antiplatets on hold at least 5 days for ERCP. after GI completes work-up, would re-initiate ASA. -Significant calcifications and peripheral vascular disease -2D echo: EF 50%, no significant valvular lesions. left sided pleural effusion -HIT screen negative. CHARLEEN -negative -Continue Cardizem 240 mg p.o. daily, Hydralazine 50mg Q8, Lopressor 50mg Q12 GI Acute hepatic dysfunction Hyperbilirubinemia Transaminitis Acute Choledocholithiasis R retroperitoneal hematoma -Monitor LFT's and Lipase level- ERCP when O2 requirements is better Repeat CT abd/pelvis 11/21: The retroperitoneal hematoma on the right is smaller from the prior study. Drainage catheter within the right upper quadrant in place , No biliary dilatation. Nonobstructing left renal stone. Colonic diverticulosis - gallbladder ultrasound showed multiple gallstones -Retroperitoneal hematoma on 11/11 while on heparin drip, CT with large R retroperitoneal hematoma. Manage medically, repeat CT abd/pelvis 11/21: interval decrease in size of hematoma. - Gen Surgery following. -CT abdomen/pelvis 11/01: c/w choledocholithiasis - Perc cholecystostomy tube placed 11/01 by IR- Monitor drainage -Eventual cholecystectomy when stabilized. Dr. Martins has seen. ERCP saturday. FEN/RENAL Acute kidney injury- resolved Monitor renal function, I/O's, electrolytes replacement as needed Continue diuresis with Lasix 40 mg IV q12. Nephrology has signed off. ID E COLI bacteremia/severe sepsis, resolved Enterococcus in the urine: possible colonization vs. UTI. Acute Choledocholithiasis/ Cholangitis Biliary fluid gram-negative rods Cholecystostomy placed 11/01. Completed abx course per ID: Unasyn discontinued 11/13. Monitor for signs of infections ( Fever, WBC) HEME: Acute blood loss anemia overlying anemia of chronic disease acute thrombocytopenia: Initially consumptive secondary to sepsis earlier during admission then consumptive secondary to acute blood loss. - HIT negative. CHARLEEN negative 10/30. Heparin on hold since 11/11. Monitor coags, transfuse blood products as indicated. 3 units PRBC 11/11. 1 unit 11/12. 1 unit PRBCs ordered for hemoglobin 6.9 on 11/14. 1 unit PRBC 11/16 DVT GI prophylaxis -Vickey's and SCDs -Heparin infusion on hold due to bleeding/thrombocytopenia. ACCESS: . PIV Placed emergent left IJ central venous line 11/11-11/[address] Puckett: Patient states he agrees to reintubation if needed. In the setting of pulseless arrest he would not want CPR, shocks, intubation, ACLS drugs. CODE STATUS is alternate code intubation only. Patient's sister states that he has designated her as healthcare surrogate. He has advanced directives. Palliative care following. PT/OT Problem Qualifiers (1) Pneumonia: Qualified Codes: J18.1 - Lobar pneumonia, unspecified organism (2) Sepsis: Qualified Codes: A41.9 - Sepsis, unspecified organism Martín Rodrgiuez MD Nov 24, 2017 14:56
[2017-11-24] MEDS: ONDANSETRON HCL 4 MG/2 ML VIAL IV PUSH PRN (20:32)
[2017-11-24] MEDS: HYDROmorphone HCL PF 0.5 MG/0.5 ML SYRINGE IV PRN (20:33)
[2017-11-25] VITALS (17 sets, daily range): BP systolic 119–166; BP diastolic 62–78; PULSE 14–82; RESP 8–17; TEMP 97.3–99; O2SAT 93–99
[2017-11-25] MEDS: methylPREDNISolone SOD SUCC 40 MG/1 ML VIAL IV PUSH SCH ×2 (00:20→13:30)
[2017-11-25] MEDS: SENNOSIDES 8.6 MG TAB PO SCH ×3 (00:21→20:05)
[2017-11-25] MEDS: CHLORHEXIDINE GLUCONATE 2 % 1 PACK (2 CLOTHS) TOP SCH (04:00)
[2017-11-25] MEDS: hydrALAZINE HCL 50 MG TAB PO SCH ×3 (05:15→21:26)
[2017-11-25 07:32] LABS: HEMATOCRIT 31.3 % (39.0-51.0); HEMOGLOBIN 10.4 GM/DL (13.0-17.0); MEAN CELL VOLUME 94.2 FL (80.0-100.0); MEAN CORPUSCULAR HEMOGLOBIN 31.4 PG (27.0-34.0); MEAN CORPUSCULAR HGB CONC 33.3 % (32.0-36.0); MEAN PLATELET VOLUME 12.1 FL (7.0-11.0); PLATELET COUNT 88 TH/MM3 (150-450); RED BLOOD COUNT 3.33 MIL/MM3 (4.50-5.90); RED CELL DISTRIBUTION WIDTH 18.7 % (11.6-17.2); WHITE BLOOD COUNT 7.6 TH/MM3 (4.0-11.0)
[2017-11-25] MEDS: FUROSEMIDE 40 MG/4 ML VIAL IV PUSH SCH (07:49)
[2017-11-25] MEDS: FAMOTIDINE 20 MG TAB PO SCH ×2 (07:49→20:04)
[2017-11-25] MEDS: DILTIAZEM-CD 240 MG CAP ER PO SCH (07:49)
[2017-11-25] MEDS: METOPROLOL TARTRATE 50 MG TAB PO SCH ×2 (07:49→20:04)
[2017-11-25] MEDS: SODIUM CHLORIDE 0.9% FLUSH 10 ML FLUSH IV FLUSH SCH ×2 (07:50→20:04)
[2017-11-25] MEDS: NYSTATIN SUSP 500,000 U/5 ML CUP SWISH-SWAL SCH ×4 (07:50→20:04)
[2017-11-25] MEDS: guaiFENesin E.R. 600 MG TAB PO SCH (07:50)
[2017-11-25] MEDS: BUDESONIDE-FORMOTEROL 160/4.5 MCG INHALER INH SCH ×2 (07:50→19:57)
[2017-11-25 07:51] LABS: BICARBONATE 26.4 MEQ/L (21.0-32.0); CALCIUM 8.3 MG/DL (8.5-10.1); CREATININE 0.93 MG/DL (0.60-1.30)
[2017-11-25] MEDS: CHLORHEXIDINE 0.12% (ORAL KIT) 15 ML CUP MT SCH ×2 (08:00→20:03)
[2017-11-25] MEDS ORDERED: SUGAMMADEX SODIUM 200 MG/2 ML VIAL IV PUSH ONE (09:51)
--- NOTE | 2017-11-25 10:30 | GIPROC ---
[facility] [address] [facility]. [facility], [address] ERCP PROCEDURE REPORT EXAM DATE: 11/25/2017 PATIENT NAME: Flaco Bates MR #: [id number] BIRTHDATE: 1950 ATTENDING: Nik Romo MD ORDER #: [id number] ARCHITECTURAL SUPERINTENDENT: John Isabel and Mary Jaramillo STATUS: inpatient INDICATIONS: The patient is a 67 yr old male here for an ERCP due to abdominal pain of suspected biliary origin, abnormal abdominal CT, abnormal liver function test , and established bile duct stone(s) PROCEDURE PERFORMED: ERCP with sphincterotomy/papillotomy ERCP with stent placement MEDICATIONS: None and Per Anesthesia. CONSENT: The patient understands the risks and benefits of the procedure and understands that these risks include, but are not limited to: sedation, allergic reaction, infection, perforation and/or bleeding. Alternative means of evaluation and treatment include, among others: physical exam, x-rays, and/or surgical intervention. The patient elects to proceed with this endoscopic procedure. medical equipment was checked for proper function. Hand hygiene and appropriate measures for infection prevention was taken. After the risks, benefits and alternatives of the procedure were thoroughly explained, Informed was verified, confirmed and timeout was successfully executed by the treatment team. With the patient in left semi-prone position, medications were administered intravenously.The Pentax [id number] was passed from the mouth into the esophagus and further advanced from the esophagus into the stomach. From stomach scope was directed to the second portion of the duodenum. Major papilla was aligned with the duodenoscope. The scope position was confirmed fluoroscopically. Rest of the findings/therapeutics are given below. The scope was then completely withdrawn from the patient and the procedure completed. The pulse, BP, and O2 saturation were monitored and documented by the physician and the nursing staff throughout the entire procedure. The patient was cared for as planned according to standard protocol. The patient was then discharged to recovery in stable condition and with appropriate post procedure care. The ampulla was located the second portion of the duodenum, in a position more proximal than normal. The ampulla appeared normal. Pt intubated priot to ERCP by anesthesia. Lots of food/liquid in the stomach. Gastritis, fluis suctioned as well as possible. Ampulla cannulated. PD normal. CBD dilated with multiple filling defects.Because of patients critical condition no attempt made to remove the stones. 8.5 x 9cm stent placed in the cbd under floroscopy. There was brownish material in the lungs suctioned on intubation. ADVERSE EVENT: There were no complications. IMPRESSIONS: 1. Normal appearing ampulla 2. Pt intubated priot to ERCP by anesthesia. Lots of food/liquid in the stomach. Gastritis, fluis suctioned as well as possible. Ampulla cannulated. PD normal. CBD dilated with multiple filling defects.Because of patients critical condition no attempt made to remove the stones. 8.5 x 9cm stent placed in the cbd under floroscopy RECOMMENDATIONS: 1. Await xray reading 2. Antibiotics 3. Liver enzymes REPEAT EXAM: Return 3 months ERCP Nik Romo MD eSigned: Nik Romo MD 11/25/2017 10:30 AM cc: PATIENT NAME: Flaco Bates MR#: [id number]
[2017-11-25] MEDS ORDERED: IOHEXOL 350 MG/ML 50 ML BTL (for RAD DIAG) OTHER ONE (10:44)
[2017-11-25] MEDS ORDERED: MIDAZOLAM HCL 2 MG/2 ML VIAL ONE (11:47)
[2017-11-25] MEDS ORDERED: PROPOFOL 200 MG/20 ML AMP IV ONE (12:00)
[2017-11-25] MEDS ORDERED: ONDANSETRON HCL 4 MG/2 ML VIAL IV ONE (12:00)
[2017-11-25] MEDS ORDERED: ePHEDrine/NS 25 MG/5 ML SYRINGE IV ONE (12:00)
[2017-11-25] MEDS ORDERED: ROCURONIUM INJ 50 MG/5 ML SYRINGE IV PUSH ONE (12:00)
[2017-11-25] MEDS ORDERED: LIDOCAINE HCL 1% PF 5 ML SYRINGE OTHER ONE (12:00)
[2017-11-25] MEDS ORDERED: PHENYLEPH/NS 1000 MCG/10 ML SYR IV ONE (12:00)
--- NOTE | 2017-11-25 12:12 | HHI.CCPN ---
Subjective Remarks/Hospital Course 67-year-old male presents to the emergency department via EMS for evaluation of shortness of breath and pain and numbness to the left leg. Patient believes that he is shortness of breath is related to the pain in his leg. He cannot feel his leg from his groin down. He denies any history of the same. He does report history of COPD. He denies any known fevers or chills. He denies chest pain. Patient received 1 L normal saline bolus via EMS. Patient denies any history of bleeding or blood clots. No recent surgery or travel. No hemoptysis. No history of DVT/PE. He denies leg edema. Patient states the pain is 10/10 to the left leg. No exacerbating or alleviating factors. Moderate severity. 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 The right inflow is heavily diseased as well. The patient was evaluated by vascular surgeon formulation scientist and was immediately started on heparin drip. SUBJ 10/29: Remains critically ill, encephalopathy. 4 out of 4 bottles positive for GNR. I will change Rocephin to Zosyn renally dosed to cover for Pseudomonas also. Continue azithromycin. Creatinine still elevated but slightly improved. WBC count slightly increased 17.2 now with 24% bands. Source of GNR sepsis could be either UTI or pneumonia. Will consult ID as well. Remains on IV heparin for acute left limb ischemia 10/30: platelets falling >50% again today. Cr still rising, but could be ATN/ contrast nephropathy. blood cultures growing e. coli by PCR, full speciation to follow. urine culture pending. discussed case with Dr. Lopez, will stop heparin , start argatroban and send HIT/CHARLEEN. denies complaints for me, but does have objective tenderness on palpation, RUQ. 10/31: Emergently intubated today a.m. by Dr. Puckett for worsening mental status, encephalopathy and worsening respiratory failure. Prior to intubation Dr. Puckett ' exam revealed right upper quadrant tenderness. Ultrasound of the gallbladder yesterday showed gallstones. Overnight Argatroban was supratherapeutic and was held, platelet count also dropped to 30,000, HIT screen is pending. Postintubation bilateral pupils are reactive but unequal. Will repeat CT of the head, CT abdomen pelvis. BUN 49/Creat 2.7, leukocytosis persisting 11/01: no improvements. ct abd/pelvis with evidence of possible choledocholithiasis. perc doug tube planned for this AM. on esmolol infusion for afib RVR. fio2 increased to 70%. 11/02: Sodium bicarbonate infusion continued per nephrology in the setting of rhabdomyolysis serial creatinine kinase pending. Cholecystostomy drain placement 100 cc overnight. Continued thrombocytopenia, CBC, serotonin release assay pending. Plan for reinitiation of heparin awaiting GI consultation for possible invasive procedures prior to restarting heparin. Patient sinus rhythm with occasional PAC's. 11/03: No acute events overnight. Sodium bicarbonate infusion discontinued this a.m. had any improved this a.m.. Chest x-ray showed worsening consolidation, FiO2 requirements were increased to 65% during the night. CPAP trials on hold currently. Biliary drainage from cholecystostomy tube revealing gram-negative rods. The patient continues on antibiotics. Bilateral dorsalis pedis pulses monophasic signals by Doppler. Heparin infusion reinitiated. 11/04: Sodium bicarbonate infusion discontinued at 7 AM yesterday. Chest x-ray worsening consolidation versus pleural effusions. FiO2 slightly decreased to 60 %, ABG improving. Pending quantification via ultrasound of pleural fluid in am. Lasix 40mg x1 additional dose provided today . PPN discontinued discussed with Dr. Colon tube feeds initiated at [facility]. Dietary consult ordered. 11/05: Afebrile. Patient tolerating tube feeds advanced to goal rate of 55 cc/ hr. chest x-ray with slight improvement FiO2 decreased to 55% ABG pending. Initiation of CPAP trial to be attempted today. 11/06: Late entry note. Patient seen at 628am. Patient was started on CPAP and continues on CPAP greater than 10 hours. Patient following commands, currently on Precedex infusion. 11/07: Patient remained on CPAP trials for approximately 12 hours yesterday and discontinued because of agitation. CPAP trials reinitiated this a.m. Patient complaint of sore throat Lortab ordered. Patient continues on Precedex for ventilator weaning process. Chest x-ray still shows pulmonary edema, additional dose Lasix 401 dose given this a.m.. When infusion continued, monophasic Doppler signals bilateral dorsalis pedal pulses noted. 11/08: Afebrile . Patient successfully extubated yesterday. Remains on O2 at 4 L nasal cannula O2 saturation 94-95%. Patient continues on heparin infusion, she was noted to have 9 BMs last evening plan for serial H&H's concern for possible stool with occult blood. Repeat stool for occult blood. Plan for possible bedside thoracentesis ,if respiratory requirements increase, currently on O2 4 L via nasal cannula in no apparent distress. 11/11 Late entry, notified of re-consult at 17:[address] Johnson, saw patient and immediately placed L IJ CVL because patient had ripped out an IV and had insufficient peripheral IV access given clinical condition. RN states patient had Hgb 7.5 this morning. Trend was unusual with Hb 8.3--> 12.5 (without transfusion)-->7.5 and lab recommended repeat. Repeat was drawn and was 4.2. Meanwhile, while awaiting re-draw patient became hypotensive, MAP down in the 40s, and was given albumin 25 gram IV. Now he has received 1 unit PRBC and BP improved to 120s/60s. Getting 2 additional units of PRBC stat. Nurse states heparin has been off since 12:30. Sending stat coags/fibrinogen. Patient denies nausea or vomiting. He has some right-sided abdominal pain. There is dark brown drainage from cholecystostomy tube. He has not had a bowel movement in 48 hours. No obvious evidence of GI bleeding. CT abdomen and pelvis has been ordered as "urgent", now giving additional PRBC and then will obtain stat. Gastroenterology has been following and I have notified them of the anemia, though this does not appear to be GI source at this time. 11/12 CT last night showed large retroperitoneal hematoma. Transfused total of 3 units PRBC yest evening. Hgb now 8.3. Coags/fibrinogen in acceptable range this morning, heparin drip off. Patient states much less abdominal pain today. He is alert and oriented now. Coughing, O2 requirement up to 6 L NC, afebrile. 11/13 Had some hemoptysis yesterday. CT with bilateral pleural effusions/ LLL atelectasis vs infiltrate. Now on 8 L SM, tachypneic with more labored breathing today. Edematous, will diurese. He is alert and capacitated currently and agrees to L pleural drainage. Transfused 1 unit PRBC yesterday for Hgb 7.4. He still has some Right sided abdominal pain 11/14: Resting in bed on simple facemask. Hemoglobin 6.9 this morning. Patient denies any worsening shortness of breath or chest pain. 1 unit PRBCs being transfused. Left-sided pigtail catheter placed 11/13 drain 650 cc 11/15 Remains on simple mask, breathing a little labored. L pigtail catheter output is serous, 270 last 24 hours. Planned to tap R pleural effusion but when performed u/s the fluid had decreased significantly and did not appear amenable to drainage; continue diuresis. Labs are pending, nurse is about to draw them. Afebrile 11/16 Diuresing, creatinine stable. On NC. Afebrile. L Chest tube output 220. Hgb 7.6 from 8.8. Transfusing 1 unit PRBC. Noted lipase 827. Patient denies n/v /abdominal tenderness. He says he is feeling "much better" and denies abd pain. 11/17 Chest tube removed yesterday without complication. Labored breathing when he got OOB overnight. He is tired of wearing simple mask so he wants to try HFNC. Depressed today, is worried his ERCP will get canceled. Wants to get out of the hospital. Case management working on transfer to [facility] when cleared following ERCP. 11/18 Patient is on high flow oxygen with 70% FIO2. For ERCP today. 11/19 No events overnight. ERCP wasn't done yesterday as patient is on high flow oxygen. Remains on 25L with 70% FIO2. Afebrile. 11/20: no acute events. tolerating a diet. on high flow NC at 70% fio2. not dyspneic. Subjective: 11/21: repeat CT abd/pelvis with interval decrease in size of hematoma. no other changes. remains on HFNC despite diuresis. 11/22 No events overnight. Down to 3L oxygen with good sats. Afebrile. 11/23: remains on 3L o2 by NC. denies complaints. plan for ERCP saturday. 11/24 Patient went for ERCP and kept intubated post procedure CCM consulted for CC management. On no sedation. Objective Vital Signs Date Time Temp Pulse Resp B/P (MAP) Pulse Ox O2 Delivery O2 Flow Rate FiO2 11/25/17 09:10 99.0 68 12 148/72 (97) 93 11/25/17 08:09 Nasal Cannula 3.00 11/21/17 07:54 80 Intake and Output 11/25/17 11/25/17 11/26/17 08:00 16:00 00:00 Intake Total 100 ml Output Total 610 ml Balance -610 ml 100 ml Result Diagram: 11/25/17 0629 11/25/17 0629 Other Results Laboratory Tests Test 11/25/17 06:29 White Blood Count 7.6 TH/MM3 Red Blood Count 3.33 MIL/MM3 Hemoglobin 10.4 GM/DL Hematocrit 31.3 % Mean Corpuscular Volume 94.2 FL Mean Corpuscular Hemoglobin 31.4 PG Mean Corpuscular Hemoglobin Concent 33.3 % Red Cell Distribution Width 18.7 % Platelet Count 88 TH/MM3 Mean Platelet Volume 12.1 FL Blood Urea Nitrogen 45 MG/DL Creatinine 0.93 MG/DL Random Glucose 168 MG/DL Calcium Level 8.3 MG/DL Sodium Level 145 MEQ/L Potassium Level 4.1 MEQ/L Chloride Level 108 MEQ/L Carbon Dioxide Level 26.4 MEQ/L Anion Gap 11 MEQ/L Estimat Glomerular Filtration Rate 81 ML/MIN Imaging Last Impressions Abdomen/Pelvis CT 11/21/17 0000 Signed Impressions: The retroperitoneal hematoma on the right is smaller from the prior examination . It previously measured 21 x 11 x 12 cm and now measures 21 x 8 x 11 cm. No ac lito hemorrhage appreciated. A drainage catheter is seen within the gallbladder fossa and the gallbladder is totally decompressed. This is stable in appearance from the prior study. No biliary dilatation. A 3 mm nonobstructing left renal stone noted. Bibasilar areas of consolidation affecting the left lower lobe to a greater degree than the right. This is stable. The left effusion is smaller f rom the prior exam. The right effusion is stable. Colonic diverticuli without a cute abnormality. CONCLUSION: 1. The retroperitoneal hematoma on the right is smaller from the prior study. 2. Drainage catheter within the right upper quadrant felt to relate to a doug cystostomy tube. No biliary dilatation. 3. Nonobstructing left renal stone. 4. Colonic diverticulosis. 5. Improving left effusion with unchanged right effusion. 6. Bibasilar consolidation appears stable. Chest X-Ray 11/18/17 0000 Signed Impressions: CONCLUSION: Some improvement in the bibasilar infiltrates. Chest CT 11/12/17 Signed Impressions: CONCLUSION: 1. Bilateral pleural effusions left greater than right. Areas of infiltrate ve rsus atelectasis left lung base difficult to rule out a small superimposed pneu monia. 2. Dense coronary atherosclerotic disease. Chest Ultrasound 11/07/17 Signed Impressions: CONCLUSION: 1. Left-sided pleural effusion. Percutaneous Cholangiogram 11/01/17 Signed Impressions: CONCLUSION: 1. Uncomplicated percutaneous cholecystostomy as above. Renal Ultrasound 10/31/17 Signed Impressions: CONCLUSION: 1. No hydronephrosis. 2. Increased cortical echogenicity consistent with medical renal disease. Head Magnetic Resonance Angiography 10/31/17 Signed Impressions: CONCLUSION: 1. Unremarkable MRA of the brain. Head CT 10/31/17 Signed Impressions: CONCLUSION: 1. Negative CT Head non contrast. 2. No evidence of acute infarct, hemorrhage, mass or edema. Brain MRI 10/31/17 Signed Impressions: CONCLUSION: 1. Senescent changes with minimal periventricular ischemic white matter demyel ination. 2. No acute abnormality. Specifically, no acute infarction, mass or hemorrhage . Gall Bladder Ultrasound 10/30/17 Signed Impressions: CONCLUSION: 1. Fatty infiltration of the liver. 2. Multiple stones in the gallbladder. No biliary tract obstruction. Extremity Arterial Study 10/28/17 Signed Impressions: CONCLUSION: 1. Abnormal ABIs, left greater than right. The left DAVID is significantly dimin ished at 0.14. Aorta w/Runoff CTA 10/28/17 Signed Impressions: Service Date/Time: Saturday, October 28, 2017 21:50 - CONCLUSION: 1. Acute occlusion of the left inflow with concern for short segment occlusion involving the distal right inflow. This raises concern for an embolic event. 2. Right lower extremity shows scattered disease throughout the common femoral artery, SFA and [id number] popliteal artery with three-vessel runoff to the foot. 3. Left lower extremity with reconstitution of the common femoral artery with diseased out flow and two vessel runoff to the foot as detailed above. 4. 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 5. Hepatic steatosis. 6. Cholelithiasis. Juanjose Mckeon Jr., MD Objective Remarks GENERAL: middle-aged male, lying in bed intubated SKIN: Warm and dry. HEAD: Normocephalic. ENT: + scleral icterus. No injection or drainage. Pupils equal, reactive NECK: Supple, trachea midline. No JVD. CARDIOVASCULAR:RRR nl S1, S2 RESPIRATORY: B/L equal air entry GASTROINTESTINAL: Abdomen distended, no tenderness to palpation. bowel sounds present. Cholecystostomy tube is in place . No flank hematoma. NEURO EXAM: Intubated A/P Assessment and Plan ASSESSMENT/PLAN: NEURO: Encephalopathy Monitor neuro status, avoid sedatives -Lortab as needed for pain -10/31 CT of the head- negative -10/31MRI minimal periventricular ischemic white matter change no acute abnormality RESP: VDF COPD exacerbation, Left lower lobe pneumonia, resolved Continue with vent support keep sats >92% Bronchodilators, ICU vent bundle, Check CXR and ABG post intubation Patient was intubated on 10/31/2017. Extubated 11/07/17. Reintubated 11/25 for ERCP -L pigtail chest tube placed with initially 600 mL of serosanginous output. Respiratory status improved. pleural fluid culture negative,pathology pending. Chest tube removed 11/17 -U/s R pleural effusion on 11/15 - not amenable to drainage. Continue Symbicort 160/4.52 puffs inhaled every 12 hours Decrease Solumedrol [address] Johnson following CVS: Hemorrhagic shock, resolved. Secondary to R retroperitoneal hematoma Lactic acidemia- resolved Acute on chronic left limb ischemia, improved Paroxysmal atrial fibrillation HTN -CTA showed severe aorto-iliac occlusive disease with left iliac thrombosis. Dr. Lopez evaluated, may need ax-fem bypass at some point but not during this hospitalization. -No longer a candidate for anticoagulation, ASA/Plavix recommended when patient stabilized. Now off antiplatelets both due to large RP bleed -2D echo: EF 50%, no significant valvular lesions. Monitor HR and BP keep MAP>65mmHg -Continue Cardizem 240 mg p.o. daily, Hydralazine 50mg Q8, Lopressor 50mg Q12 GI Acute hepatic dysfunction Hyperbilirubinemia Transaminitis Acute Choledocholithiasis R retroperitoneal hematoma s/p ERCP today: Lots of food/liquid in the stomach. Gastritis, CBD dilated with multiple filling defects. 8.5 x 9cm stent placed in the CBD under fluoroscopy -Monitor LFT's Repeat CT abd/pelvis 11/21: The retroperitoneal hematoma on the right is smaller from the prior study. Drainage catheter within the right upper quadrant in place , No biliary dilatation. Nonobstructing left renal stone. Colonic diverticulosis - gallbladder ultrasound showed multiple gallstones -Retroperitoneal hematoma on 11/11 while on heparin drip, CT with large R retroperitoneal hematoma. Manage medically, repeat CT abd/pelvis 11/21: interval decrease in size of hematoma. - Gen Surgery following. -CT abdomen/pelvis 11/01: c/w choledocholithiasis - Perc cholecystostomy tube placed 11/01 by IR- Monitor drainage -Eventual cholecystectomy when stabilized. Dr. Martins has seen. FEN/RENAL Acute kidney injury- resolved Monitor renal function, I/O's, electrolytes replacement as needed d/c [facility] has signed off. ID E COLI bacteremia/severe sepsis, resolved Enterococcus in the urine: possible colonization vs. UTI. Acute Choledocholithiasis/ Cholangitis Biliary fluid gram-negative rods Cholecystostomy placed 11/01. Completed abx course per ID: Unasyn discontinued 11/13. Monitor for signs of infections ( Fever, WBC) HEME: Acute blood loss anemia overlying anemia of chronic disease acute thrombocytopenia: Initially consumptive secondary to sepsis earlier during admission then consumptive secondary to acute blood loss. - HIT negative. CHARLEEN negative 10/30. Heparin on hold since 11/11. Monitor CBC 3 units PRBC 11/11. 1 unit 11/12. 1 unit PRBCs ordered for hemoglobin 6.9 on 11/14. 1 unit PRBC 11/16 DVT GI prophylaxis -Vickey's and SCDs -Heparin infusion on hold due to bleeding/thrombocytopenia. ACCESS: . PIV Palliative care following. PT/OT Level 3 Vandana Frazier MD Nov 25, 2017 12:12
[2017-11-25] MEDS ORDERED: GLUCAGON 1 MG/ML VIAL OTHER PRN (12:15)
[2017-11-25] MEDS: INSULIN NovoLIN REGULAR SUPPLEMENTAL SCALE SQ SCH ×3 (12:15→23:38)
--- NOTE | 2017-11-25 12:31 | RADRPT ---
EXAM DATE: 11/25/2017 12:15 PM EDT AGE/SEX: 67 years / Male INDICATIONS: Short of breath. CLINICAL DATA: This is the patient's subsequent encounter. Patient reports that signs and symptoms h ave been present for 2 weeks and indicates a pain score of Nonresponsive. MEDICAL/SURGICAL HISTORY: . Chronic obstructive pulmonary disease. Left chest tube. None. [place] [facility] [place]. . FINDINGS: There is an ET tube in the proximal right mainstem bronchus. This should be pulled back 4 to 5 cm. Th e heart size is normal. There is increased density at the bases. There is silhouetting of the left he midiaphragm. Clips are seen in the left upper quadrant. CONCLUSION: ET tube in the proximal right mainstem bronchus. The ET tube should be pulled back 4 to 5 cm. Bibasilar areas of consolidation or atelectasis being worse on the left with some silhouetting of the left hemidiaphragm. This information was relayed to Radha, the patient's nurse by telephone. Electronically signed by: Phi Tineo MD 11/25/2017 12:30 PM EDT
--- NOTE | 2017-11-25 12:57 | RADRPT ---
EXAM DATE: 11/25/2017 12:44 PM EDT AGE/SEX: 67 years / Male INDICATIONS: Stones, dilated ducts. CLINICAL DATA: This is the patient's initial encounter. Patient reports that signs and symptoms have been present for 1 day and indicates a pain score of Nonresponsive. MEDICAL/SURGICAL HISTORY: Non-responsive. Non-responsive. [place]PAR[place]: [facility] [place]/O CONTRAST, 11/21/2017. . FINDINGS: An ERCP was performed by the ordering physician. The images demonstrate multiple filling defects wit hin it the common bile duct. On the third image, a biliary stent is seen. The pancreatic duct appears normal. CONCLUSION: Multiple filling defects with a biliary stent left in place. Electronically signed by: Phi Tineo MD 11/25/2017 12:55 PM EDT
[2017-11-25] MEDS: RESP: ALBUTEROL 2.5 MG/IPRATROPIUM 0.5 MG NEB (SCH) NEB ×3 (15:36→19:57)
[2017-11-25] MEDS: HYDROmorphone HCL PF 0.5 MG/0.5 ML SYRINGE IV PRN (16:00)
--- NOTE | 2017-11-25 19:38 | HHI.PR ---
Subjective Remarks 67 YOWM with COPD,Sepsis, ischemia of leg mild sob cough, occ sp No Fever Had ERCP Intubated due to sob Weaned to CPAp Opens eyes no Sedation Objective Vital Signs Vital Signs Date Time Temp Pulse Resp B/P (MAP) Pulse Ox O2 Delivery O2 Flow Rate FiO2 11/25/17 19:00 95 Mechanical Ventilator 40 11/25/17 18:00 71 11/25/17 17:18 10 11/25/17 16:00 97.6 69 8 129/62 (84) 93 11/25/17 16:00 69 11/25/17 16:00 40 11/25/17 15:37 94 40 11/25/17 14:00 74 11/25/17 12:00 62 11/25/17 12:00 97.9 14 16 124/69 (87) 99 11/25/17 12:00 40 11/25/17 11:54 99 40 11/25/17 09:10 99.0 68 12 148/72 (97) 93 11/25/17 08:09 94 Nasal Cannula 3.00 11/25/17 08:00 98.1 63 15 166/78 (107) 94 11/25/17 08:00 63 11/25/17 07:00 92 Nasal Cannula 4.00 11/25/17 06:00 64 11/25/17 04:00 55 11/25/17 04:00 97.3 55 12 158/74 (102) 94 11/25/17 02:00 68 11/25/17 00:00 73 11/25/17 00:00 98.2 73 13 152/76 (101) 94 11/24/17 22:00 76 11/24/17 20:43 91 Nasal Cannula 3.00 11/24/17 20:00 78 11/24/17 20:00 97.8 78 18 157/77 (103) 89 I/O 11/24/17 11/24/17 11/24/17 11/25/17 11/25/17 11/25/17 07:00 15:00 23:00 07:00 15:00 23:00 Intake Total 900 ml 100 ml Output Total 730 ml 1060 ml 610 ml 820 ml Balance -730 ml -160 ml -610 ml 100 ml -820 ml Intake Oral 650 ml Oral Supplement 250 ml Other 100 ml Output Urine Total 700 ml 1000 ml 575 ml 750 ml Stool Total 0 ml Drainage Total 30 ml 60 ml 35 ml 70 ml # Bowel Movements 0 0 Result Diagram: 11/25/1762811/25/17628 Objective Remarks GENERAL: WBWN WM, on Vent SKIN: Warm and dry. HEAD: Normocephalic. EYES: No scleral icterus. No injection or drainage. NECK: Supple, trachea midline. No JVD or lymphadenopathy. CARDIOVASCULAR: Regular rate and rhythm without murmurs, gallops, or rubs. RESPIRATORY: Breath sounds equal bilaterally. No accessory muscle use. GASTROINTESTINAL: Abdomen soft, non-tender, nondistended. MUSCULOSKELETAL: No cyanosis, or edema. Cold left leg BACK: Nontender without obvious deformity. No CVA tenderness. A/P Assessment and Plan IMPRESSION: 1. Sepsis. 2. Chronic obstructive pulmonary disease, mild exacerbation. 3. Left basilar infiltrate. 4. Urinary tract infection 5. Encephalopathy. 6. Cold left leg.-resolved 7. Thrombocytopenia. 8. VDRF--reintubated 11/25 9. Severe anemia, retroperitoneal bleed PLAN: Cont Vent support Wean vent in AM Cont Abx per ID Monitor renal functions DW RN at BS Monitor H/H Dennis Johnson MD Nov 25, 2017 19:38
[2017-11-26] VITALS (16 sets, daily range): BP systolic 119–146; BP diastolic 65–72; PULSE 73–97; RESP 11–19; TEMP 97.8–98.8; O2SAT 92–97
[2017-11-26] MEDS: CHLORHEXIDINE GLUCONATE 2 % 1 PACK (2 CLOTHS) TOP SCH (01:07)
[2017-11-26] MEDS: HYDROmorphone HCL PF 2 MG/ML VIAL IV PUSH PRN ×2 (01:59→08:22)
[2017-11-26] MEDS: RESP: ALBUTEROL 2.5 MG/IPRATROPIUM 0.5 MG NEB (SCH) NEB ×4 (03:38→22:00)
[2017-11-26] MEDS: hydrALAZINE HCL 50 MG TAB PO SCH ×3 (05:06→22:00)
[2017-11-26] MEDS: INSULIN NovoLIN REGULAR SUPPLEMENTAL SCALE SQ SCH ×3 (05:09→17:31)
[2017-11-26 07:27] LABS: BASOPHIL % 0.1 % (0.0-2.0); EOSINOPHIL % 0.2 % (0.0-4.0); HEMATOCRIT 32.7 % (39.0-51.0); LYMPH % 3.8 % (9.0-44.0); LYMPHOCYTE # 0.2 TH/MM3 (1.0-4.8); MEAN CELL VOLUME 92.3 FL (80.0-100.0); MEAN CORPUSCULAR HEMOGLOBIN 31.1 PG (27.0-34.0); MEAN CORPUSCULAR HGB CONC 33.6 % (32.0-36.0); MEAN PLATELET VOLUME 11.7 FL (7.0-11.0); MONO % 1.9 % (0.0-8.0); MONOCYTE # 0.1 TH/MM3 (0-0.9); PLATELET COUNT 73 TH/MM3 (150-450); RED BLOOD COUNT 3.54 MIL/MM3 (4.50-5.90); RED CELL DISTRIBUTION WIDTH 18.7 % (11.6-17.2); WHITE BLOOD COUNT 5.3 TH/MM3 (4.0-11.0)
[2017-11-26 07:38] LABS: ALBUMIN 2.4 GM/DL (3.4-5.0); ALKALINE PHOSPHATASE 138 U/L (45-117); ALT (GPT) 13 U/L (12-78); AST (GOT) 24 U/L (15-37); BICARBONATE 30.1 MEQ/L (21.0-32.0); CALCIUM 8.5 MG/DL (8.5-10.1); CHLORIDE 107 MEQ/L (98-107); CREATININE 0.75 MG/DL (0.60-1.30); GLOMERULAR FILTRATION RATE 104 ML/MIN (>89); GLUCOSE,RANDOM 116 MG/DL (74-106); MAGNESIUM 2.2 MG/DL (1.5-2.5); PHOSPHORUS 2.7 MG/DL (2.5-4.9); SODIUM (NA) 143 MEQ/L (136-145); TOTAL PROTEIN 7.3 GM/DL (6.4-8.2)
[2017-11-26 07:43] LABS: BLOOD UREA NITROGEN 15 MG/DL (7-18)
[2017-11-26] MEDS: methylPREDNISolone SOD SUCC 40 MG/1 ML VIAL IV PUSH SCH (08:08)
[2017-11-26] MEDS: CHLORHEXIDINE 0.12% (ORAL KIT) 15 ML CUP MT SCH ×2 (08:08→20:00)
[2017-11-26] MEDS: SODIUM CHLORIDE 0.9% FLUSH 10 ML FLUSH IV FLUSH SCH ×2 (08:09→21:00)
[2017-11-26] MEDS: METOPROLOL TARTRATE 50 MG TAB PO SCH ×2 (08:09→21:00)
[2017-11-26] MEDS: DILTIAZEM-CD 240 MG CAP ER PO SCH (08:09)
[2017-11-26] MEDS: FAMOTIDINE 20 MG TAB PO SCH ×2 (08:09→21:00)
--- NOTE | 2017-11-26 08:11 | HHI.CCPN ---
Subjective Remarks/Hospital Course 67-year-old male presents to the emergency department via EMS for evaluation of shortness of breath and pain and numbness to the left leg. Patient believes that he is shortness of breath is related to the pain in his leg. He cannot feel his leg from his groin down. He denies any history of the same. He does report history of COPD. He denies any known fevers or chills. He denies chest pain. Patient received 1 L normal saline bolus via EMS. Patient denies any history of bleeding or blood clots. No recent surgery or travel. No hemoptysis. No history of DVT/PE. He denies leg edema. Patient states the pain is 10/10 to the left leg. No exacerbating or alleviating factors. Moderate severity. 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 The right inflow is heavily diseased as well. The patient was evaluated by vascular surgeon contract writer and was immediately started on heparin drip. SUBJ 10/29: Remains critically ill, encephalopathy. 4 out of 4 bottles positive for GNR. I will change Rocephin to Zosyn renally dosed to cover for Pseudomonas also. Continue azithromycin. Creatinine still elevated but slightly improved. WBC count slightly increased 17.2 now with 24% bands. Source of GNR sepsis could be either UTI or pneumonia. Will consult ID as well. Remains on IV heparin for acute left limb ischemia 10/30: platelets falling >50% again today. Cr still rising, but could be ATN/ contrast nephropathy. blood cultures growing e. coli by PCR, full speciation to follow. urine culture pending. discussed case with Dr. Lopez, will stop heparin , start argatroban and send HIT/CHARLEEN. denies complaints for me, but does have objective tenderness on palpation, RUQ. 10/31: Emergently intubated today a.m. by Dr. Puckett for worsening mental status, encephalopathy and worsening respiratory failure. Prior to intubation Dr. Puckett ' exam revealed right upper quadrant tenderness. Ultrasound of the gallbladder yesterday showed gallstones. Overnight Argatroban was supratherapeutic and was held, platelet count also dropped to 30,000, HIT screen is pending. Postintubation bilateral pupils are reactive but unequal. Will repeat CT of the head, CT abdomen pelvis. BUN 49/Creat 2.7, leukocytosis persisting 11/01: no improvements. ct abd/pelvis with evidence of possible choledocholithiasis. perc doug tube planned for this AM. on esmolol infusion for afib RVR. fio2 increased to 70%. 11/02: Sodium bicarbonate infusion continued per nephrology in the setting of rhabdomyolysis serial creatinine kinase pending. Cholecystostomy drain placement 100 cc overnight. Continued thrombocytopenia, CBC, serotonin release assay pending. Plan for reinitiation of heparin awaiting GI consultation for possible invasive procedures prior to restarting heparin. Patient sinus rhythm with occasional PAC's. 11/03: No acute events overnight. Sodium bicarbonate infusion discontinued this a.m. had any improved this a.m.. Chest x-ray showed worsening consolidation, FiO2 requirements were increased to 65% during the night. CPAP trials on hold currently. Biliary drainage from cholecystostomy tube revealing gram-negative rods. The patient continues on antibiotics. Bilateral dorsalis pedis pulses monophasic signals by Doppler. Heparin infusion reinitiated. 11/04: Sodium bicarbonate infusion discontinued at 7 AM yesterday. Chest x-ray worsening consolidation versus pleural effusions. FiO2 slightly decreased to 60 %, ABG improving. Pending quantification via ultrasound of pleural fluid in am. Lasix 40mg x1 additional dose provided today . PPN discontinued discussed with Dr. Colon tube feeds initiated at [facility]. Dietary consult ordered. 11/05: Afebrile. Patient tolerating tube feeds advanced to goal rate of 55 cc/ hr. chest x-ray with slight improvement FiO2 decreased to 55% ABG pending. Initiation of CPAP trial to be attempted today. 11/06: Late entry note. Patient seen at 628am. Patient was started on CPAP and continues on CPAP greater than 10 hours. Patient following commands, currently on Precedex infusion. 11/07: Patient remained on CPAP trials for approximately 12 hours yesterday and discontinued because of agitation. CPAP trials reinitiated this a.m. Patient complaint of sore throat Lortab ordered. Patient continues on Precedex for ventilator weaning process. Chest x-ray still shows pulmonary edema, additional dose Lasix 401 dose given this a.m.. When infusion continued, monophasic Doppler signals bilateral dorsalis pedal pulses noted. 11/08: Afebrile . Patient successfully extubated yesterday. Remains on O2 at 4 L nasal cannula O2 saturation 94-95%. Patient continues on heparin infusion, she was noted to have 9 BMs last evening plan for serial H&H's concern for possible stool with occult blood. Repeat stool for occult blood. Plan for possible bedside thoracentesis ,if respiratory requirements increase, currently on O2 4 L via nasal cannula in no apparent distress. 11/11 Late entry, notified of re-consult at 17:[address] Johnson, saw patient and immediately placed L IJ CVL because patient had ripped out an IV and had insufficient peripheral IV access given clinical condition. RN states patient had Hgb 7.5 this morning. Trend was unusual with Hb 8.3--> 12.5 (without transfusion)-->7.5 and lab recommended repeat. Repeat was drawn and was 4.2. Meanwhile, while awaiting re-draw patient became hypotensive, MAP down in the 40s, and was given albumin 25 gram IV. Now he has received 1 unit PRBC and BP improved to 120s/60s. Getting 2 additional units of PRBC stat. Nurse states heparin has been off since 12:30. Sending stat coags/fibrinogen. Patient denies nausea or vomiting. He has some right-sided abdominal pain. There is dark brown drainage from cholecystostomy tube. He has not had a bowel movement in 48 hours. No obvious evidence of GI bleeding. CT abdomen and pelvis has been ordered as "urgent", now giving additional PRBC and then will obtain stat. Gastroenterology has been following and I have notified them of the anemia, though this does not appear to be GI source at this time. 11/12 CT last night showed large retroperitoneal hematoma. Transfused total of 3 units PRBC yest evening. Hgb now 8.3. Coags/fibrinogen in acceptable range this morning, heparin drip off. Patient states much less abdominal pain today. He is alert and oriented now. Coughing, O2 requirement up to 6 L NC, afebrile. 11/13 Had some hemoptysis yesterday. CT with bilateral pleural effusions/ LLL atelectasis vs infiltrate. Now on 8 L SM, tachypneic with more labored breathing today. Edematous, will diurese. He is alert and capacitated currently and agrees to L pleural drainage. Transfused 1 unit PRBC yesterday for Hgb 7.4. He still has some Right sided abdominal pain 11/14: Resting in bed on simple facemask. Hemoglobin 6.9 this morning. Patient denies any worsening shortness of breath or chest pain. 1 unit PRBCs being transfused. Left-sided pigtail catheter placed 11/13 drain 650 cc 11/15 Remains on simple mask, breathing a little labored. L pigtail catheter output is serous, 270 last 24 hours. Planned to tap R pleural effusion but when performed u/s the fluid had decreased significantly and did not appear amenable to drainage; continue diuresis. Labs are pending, nurse is about to draw them. Afebrile 11/16 Diuresing, creatinine stable. On NC. Afebrile. L Chest tube output 220. Hgb 7.6 from 8.8. Transfusing 1 unit PRBC. Noted lipase 827. Patient denies n/v /abdominal tenderness. He says he is feeling "much better" and denies abd pain. 11/17 Chest tube removed yesterday without complication. Labored breathing when he got OOB overnight. He is tired of wearing simple mask so he wants to try HFNC. Depressed today, is worried his ERCP will get canceled. Wants to get out of the hospital. Case management working on transfer to [facility] when cleared following ERCP. 11/18 Patient is on high flow oxygen with 70% FIO2. For ERCP today. 11/19 No events overnight. ERCP wasn't done yesterday as patient is on high flow oxygen. Remains on 25L with 70% FIO2. Afebrile. 11/20: no acute events. tolerating a diet. on high flow NC at 70% fio2. not dyspneic. Subjective: 11/21: repeat CT abd/pelvis with interval decrease in size of hematoma. no other changes. remains on HFNC despite diuresis. 11/22 No events overnight. Down to 3L oxygen with good sats. Afebrile. 11/23: remains on 3L o2 by NC. denies complaints. plan for ERCP saturday. 11/24 Patient went for ERCP and kept intubated post procedure CCM consulted for CC management. On no sedation. 11/25 No events overnight. Tolerating CPAP PS 10, PEEP:5. Awake and alert. Objective Vital Signs Date Time Temp Pulse Resp B/P (MAP) Pulse Ox O2 Delivery O2 Flow Rate FiO2 11/26/17 06:00 86 11/26/17 04:00 40 11/26/17 04:00 98.4 12 137/70 (92) 94 11/25/17 19:00 Mechanical Ventilator 11/25/17 08:09 3.00 Intake and Output 11/26/17 11/26/17 11/27/17 08:00 16:00 00:00 Intake Total 0 ml Output Total 380 ml Balance -380 ml Result Diagram: 11/26/17 0623 11/26/17622 Other Results Laboratory Tests Test 11/25/17 13:55 11/26/17 06:23 Blood Gas Puncture Site RT RADIAL Blood Gas Patient Temperature 98.6 Blood Gas HCO3 29 mmol/L Blood Gas Base Excess 5.1 mmol/L Blood Gas Oxygen Saturation 96 % Arterial Blood pH 7.45 Arterial Blood Partial Pressure CO2 42 mmHg Arterial Blood Partial Pressure O2 121 mmHg Arterial Blood Oxygen Content 14.7 Vol % Arterial Blood Carboxyhemoglobin 1.5 % Arterial Blood Methemoglobin 1.3 % Blood Gas Hemoglobin 10.7 G/DL Oxygen Delivery Device VENTILATOR Blood Gas Ventilator Setting Blood Gas Inspired Oxygen 40 % White Blood Count 5.3 TH/MM3 Red Blood Count 3.54 MIL/MM3 Hemoglobin 11.0 GM/DL Hematocrit 32.7 % Mean Corpuscular Volume 92.3 FL Mean Corpuscular Hemoglobin 31.1 PG Mean Corpuscular Hemoglobin Concent 33.6 % Red Cell Distribution Width 18.7 % Platelet Count 73 TH/MM3 Mean Platelet Volume 11.7 FL Neutrophils (%) (Auto) 94.0 % Lymphocytes (%) (Auto) 3.8 % Monocytes (%) (Auto) 1.9 % Eosinophils (%) (Auto) 0.2 % Basophils (%) (Auto) 0.1 % Neutrophils # (Auto) 5.0 TH/MM3 Lymphocytes # (Auto) 0.2 TH/MM3 Monocytes # (Auto) 0.1 TH/MM3 Eosinophils # (Auto) 0.0 TH/MM3 Basophils # (Auto) 0.0 TH/MM3 CBC Comment AUTO DIFF Hematology Comments Blood Urea Nitrogen 15 MG/DL Creatinine 0.75 MG/DL Random Glucose 116 MG/DL Total Protein 7.3 GM/DL Albumin 2.4 GM/DL Calcium Level 8.5 MG/DL Phosphorus Level 2.7 MG/DL Magnesium Level 2.2 MG/DL Alkaline Phosphatase 138 U/L Aspartate Amino Transf (AST/SGOT) 24 U/L Alanine Aminotransferase (ALT/SGPT) 13 U/L Total Bilirubin 1.0 MG/DL Sodium Level 143 MEQ/L Potassium Level 4.4 MEQ/L Chloride Level 107 MEQ/L Carbon Dioxide Level 30.1 MEQ/L Anion Gap 6 MEQ/L Estimat Glomerular Filtration Rate 104 ML/MIN Imaging Last Impressions GI Procedure 11/25/17 Signed Impressions: CONCLUSION: Multiple filling defects with a biliary stent left in place. Chest X-Ray 11/25/17 Signed Impressions: CONCLUSION: ET tube in the proximal right mainstem bronchus. The ET tube should be pulled b ack 4 to 5 cm. Bibasilar areas of consolidation or atelectasis being worse on the left with so me silhouetting of the left hemidiaphragm. This information was relayed to Radha, the patient's nurse by telephone. Abdomen/Pelvis CT 11/21/17 Signed Impressions: The retroperitoneal hematoma on the right is smaller from the prior examination . It previously measured 21 x 11 x 12 cm and now measures 21 x 8 x 11 cm. No ac lito hemorrhage appreciated. A drainage catheter is seen within the gallbladder fossa and the gallbladder is totally decompressed. This is stable in appearance from the prior study. No biliary dilatation. A 3 mm nonobstructing left renal stone noted. Bibasilar areas of consolidation affecting the left lower lobe to a greater degree than the right. This is stable. The left effusion is smaller f rom the prior exam. The right effusion is stable. Colonic diverticuli without a cute abnormality. CONCLUSION: 1. The retroperitoneal hematoma on the right is smaller from the prior study. 2. Drainage catheter within the right upper quadrant felt to relate to a doug cystostomy tube. No biliary dilatation. 3. Nonobstructing left renal stone. 4. Colonic diverticulosis. 5. Improving left effusion with unchanged right effusion. 6. Bibasilar consolidation appears stable. Chest CT 11/12/17 Signed Impressions: CONCLUSION: 1. Bilateral pleural effusions left greater than right. Areas of infiltrate ve rsus atelectasis left lung base difficult to rule out a small superimposed pneu monia. 2. Dense coronary atherosclerotic disease. Chest Ultrasound 11/07/17 Signed Impressions: CONCLUSION: 1. Left-sided pleural effusion. Percutaneous Cholangiogram 11/01/17 Signed Impressions: CONCLUSION: 1. Uncomplicated percutaneous cholecystostomy as above. Renal Ultrasound 10/31/17 Signed Impressions: CONCLUSION: 1. No hydronephrosis. 2. Increased cortical echogenicity consistent with medical renal disease. Head Magnetic Resonance Angiography 10/31/17 Signed Impressions: CONCLUSION: 1. Unremarkable MRA of the brain. Head CT 10/31/17 Signed Impressions: CONCLUSION: 1. Negative CT Head non contrast. 2. No evidence of acute infarct, hemorrhage, mass or edema. Brain MRI 10/31/17 Signed Impressions: CONCLUSION: 1. Senescent changes with minimal periventricular ischemic white matter demyel ination. 2. No acute abnormality. Specifically, no acute infarction, mass or hemorrhage . Gall Bladder Ultrasound 10/30/17 Signed Impressions: CONCLUSION: 1. Fatty infiltration of the liver. 2. Multiple stones in the gallbladder. No biliary tract obstruction. Extremity Arterial Study 10/28/17 Signed Impressions: CONCLUSION: 1. Abnormal ABIs, left greater than right. The left DAVID is significantly dimin ished at 0.14. Aorta w/Runoff CTA 10/28/17 Signed Impressions: Service Date/Time: Saturday, October 28, 2017 21:50 - CONCLUSION: 1. Acute occlusion of the left inflow with concern for short segment occlusion involving the distal right inflow. This raises concern for an embolic event. 2. Right lower extremity shows scattered disease throughout the common femoral artery, SFA and [id number] popliteal artery with three-vessel runoff to the foot. 3. Left lower extremity with reconstitution of the common femoral artery with diseased out flow and two vessel runoff to the foot as detailed above. 4. 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 5. Hepatic steatosis. 6. Cholelithiasis. Juanjose Mckeon Jr., MD Objective Remarks GENERAL: middle-aged male, lying in bed intubated SKIN: Warm and dry. HEAD: Normocephalic. ENT: + scleral icterus. No injection or drainage. Pupils equal, reactive NECK: Supple, trachea midline. No JVD. CARDIOVASCULAR:RRR nl S1, S2 RESPIRATORY: B/L equal air entry GASTROINTESTINAL: Abdomen distended, no tenderness to palpation. bowel sounds present. Cholecystostomy tube is in place . No flank hematoma. NEURO EXAM: Intubated, awake and alert A/P Assessment and Plan ASSESSMENT/PLAN: NEURO: Encephalopathy Monitor neuro status, avoid sedatives -Lortab as needed for pain -10/31 CT of the head- negative -10/31MRI minimal periventricular ischemic white matter change no acute abnormality RESP: VDF COPD exacerbation, Left lower lobe pneumonia, resolved Continue with vent support keep sats >92% Bronchodilators, ICU vent bundle, SBT daily and likely extubation today Patient was intubated on 10/31/2017. Extubated 11/07/17. Reintubated 11/25 for ERCP -L pigtail chest tube placed with initially 600 mL of serosanginous output. Respiratory status improved. pleural fluid culture negative,pathology pending. Chest tube removed 11/17 -U/s R pleural effusion on 11/15 - not amenable to drainage. Continue Symbicort 160/4.52 puffs inhaled every 12 hours Decrease Solumedrol [address] Johnson following CVS: Hemorrhagic shock, resolved. Secondary to R retroperitoneal hematoma Lactic acidemia- resolved Acute on chronic left limb ischemia, improved Paroxysmal atrial fibrillation HTN -CTA showed severe aorto-iliac occlusive disease with left iliac thrombosis. Dr. Lopez evaluated, may need ax-fem bypass at some point but not during this hospitalization. -No longer a candidate for anticoagulation, ASA/Plavix recommended when patient stabilized. Now off antiplatelets both due to large RP bleed -2D echo: EF 50%, no significant valvular lesions. Monitor HR and BP keep MAP>65mmHg -Continue Cardizem 240 mg p.o. daily, Hydralazine 50mg Q8, Lopressor 50mg Q12 GI Acute hepatic dysfunction Hyperbilirubinemia Transaminitis Acute Choledocholithiasis R retroperitoneal hematoma s/p ERCP 11/25: Lots of food/liquid in the stomach. Gastritis, CBD dilated with multiple filling defects. 8.5 x 9cm stent placed in the CBD under fluoroscopy -Monitor LFT's Repeat CT abd/pelvis 11/21: The retroperitoneal hematoma on the right is smaller from the prior study. Drainage catheter within the right upper quadrant in place , No biliary dilatation. Nonobstructing left renal stone. Colonic diverticulosis - gallbladder ultrasound showed multiple gallstones -Retroperitoneal hematoma on 11/11 while on heparin drip, CT with large R retroperitoneal hematoma. Manage medically, repeat CT abd/pelvis 11/21: interval decrease in size of hematoma. - Gen Surgery following. -CT abdomen/pelvis 11/01: c/w choledocholithiasis - Perc cholecystostomy tube placed 11/01 by IR- Monitor drainage -Eventual cholecystectomy when stabilized. Dr. Martins has seen. FEN/RENAL Acute kidney injury- resolved Monitor renal function, I/O's, electrolytes replacement as needed ID E COLI bacteremia/severe sepsis, resolved Enterococcus in the urine: possible colonization vs. UTI. Acute Choledocholithiasis/ Cholangitis Biliary fluid gram-negative rods Cholecystostomy placed 11/01. Completed abx course per ID: Unasyn discontinued 11/13. Monitor for signs of infections ( Fever, WBC) HEME: Acute blood loss anemia overlying anemia of chronic disease acute thrombocytopenia: Initially consumptive secondary to sepsis earlier during admission then consumptive secondary to acute blood loss. - HIT negative. CHARLEEN negative 10/30. Heparin on hold since 11/11. Monitor CBC 3 units PRBC 11/11. 1 unit 11/12. 1 unit PRBCs ordered for hemoglobin 6.9 on 11/14. 1 unit PRBC 11/16 DVT GI prophylaxis -Vickey's and SCDs -Heparin infusion on hold due to bleeding/thrombocytopenia. ACCESS: . PIV Palliative care following. PT/OT Level 3 Vandana Frazier MD Nov 26, 2017 08:11
[2017-11-26 08:36] LABS: BANDS 18 % (0-6); LYMPHOCYTES 3 % (9-44); MONOCYTES 1 % (0-8); NEUTROPHIL # MANUAL DIFF 5.1 TH/MM3 (1.8-7.7); POLYS (SEG NEUTROPHILS) 78 % (16-70); TOXIC GRANULATION 1+ (NORMAL)
[2017-11-26] MEDS: BUDESONIDE-FORMOTEROL 160/4.5 MCG INHALER INH SCH ×2 (08:44→21:00)
[2017-11-26] MEDS: NYSTATIN SUSP 500,000 U/5 ML CUP SWISH-SWAL SCH ×4 (09:00→21:00)
--- NOTE | 2017-11-26 10:31 | HHI.GIFU ---
Subjective Remarks Pt intubated prior to ERCP yesterday, remains intubated today but on CPAP trial He is orally intubated and unable to provide history Biliary drain with approx 10 mL of bile colored drainage Abdomen distended and firm Pt opens eyes and able to shake his head, denies abdominal pain (Annika Tenorio) Objective Vitals I&O Vital Signs Date Time Temp Pulse Resp B/P (MAP) Pulse Ox O2 Delivery O2 Flow Rate FiO2 11/26/17 10:00 89 11/26/17 08:52 12 11/26/17 08:37 97 Ventilator 40 11/26/17 08:37 97 40 11/26/17 08:00 97 11/26/17 08:00 98.1 97 19 132/68 (89) 96 11/26/17 08:00 40 11/26/17 07:00 98 Mechanical Ventilator 40 11/26/17 06:00 86 11/26/17 04:00 40 11/26/17 04:00 77 11/26/17 04:00 98.4 77 12 137/70 (92) 94 11/26/17 03:38 94 40 11/26/17 02:00 74 11/26/17 00:00 98.5 78 13 128/72 (90) 96 11/26/17 00:00 40 11/26/17 00:00 73 11/25/17 23:33 96 40 11/25/17 22:00 77 11/25/17 20:00 40 11/25/17 20:00 98.3 82 17 119/68 (85) 93 11/25/17 20:00 74 11/25/17 19:57 95 40 11/25/17 19:00 95 Mechanical Ventilator 40 11/25/17 18:00 71 11/25/17 17:18 10 11/25/17 16:00 97.6 69 8 129/62 (84) 93 11/25/17 16:00 69 11/25/17 16:00 40 11/25/17 15:37 94 40 11/25/17 14:00 74 11/25/17 12:00 62 11/25/17 12:00 97.9 14 16 124/69 (87) 99 11/25/17 12:00 40 11/25/17 11:54 99 40 I/O 11/25/17 11/25/17 11/25/17 11/26/17 11/26/17 11/26/17 07:00 15:00 23:00 07:00 15:00 23:00 Intake Total 100 ml 0 ml Output Total 610 ml 820 ml 380 ml Balance -610 ml 100 ml -820 ml -380 ml Intake Oral 0 ml Other 100 ml Output Urine Total 575 ml 750 ml 350 ml Drainage Total 35 ml 70 ml 30 ml # Bowel Movements 0 0 Laboratory Laboratory Tests Test 11/25/17 13:55 11/26/17 06:23 Blood Gas Puncture Site RT RADIAL Blood Gas Patient Temperature 98.6 Blood Gas HCO3 29 Blood Gas Base Excess 5.1 Blood Gas Oxygen Saturation 96 Arterial Blood pH 7.45 Arterial Blood Partial Pressure CO2 42 Arterial Blood Partial Pressure O2 121 Arterial Blood Oxygen Content 14.7 Arterial Blood Carboxyhemoglobin 1.5 Arterial Blood Methemoglobin 1.3 Blood Gas Hemoglobin 10.7 Oxygen Delivery Device VENTILATOR Blood Gas Ventilator Setting Blood Gas Inspired Oxygen 40 White Blood Count 5.3 Red Blood Count 3.54 Hemoglobin 11.0 Hematocrit 32.7 Mean Corpuscular Volume 92.3 Mean Corpuscular Hemoglobin 31.1 Mean Corpuscular Hemoglobin Concent 33.6 Red Cell Distribution Width 18.7 Platelet Count 73 Mean Platelet Volume 11.7 Neutrophils (%) (Auto) 94.0 Lymphocytes (%) (Auto) 3.8 Monocytes (%) (Auto) 1.9 Eosinophils (%) (Auto) 0.2 Basophils (%) (Auto) 0.1 Neutrophils # (Auto) 5.0 Lymphocytes # (Auto) 0.2 Monocytes # (Auto) 0.1 Eosinophils # (Auto) 0.0 Basophils # (Auto) 0.0 CBC Comment AUTO DIFF Differential Total Cells Counted 100 Neutrophils % (Manual) 78 Band Neutrophils % 18 Lymphocytes % 3 Monocytes % 1 Neutrophils # (Manual) 5.1 Differential Comment FINAL DIFF MANUAL Toxic Granulation 1+ Platelet Estimate LOW Platelet Morphology Comment NORMAL Hematology Comments Blood Urea Nitrogen 15 Creatinine 0.75 Random Glucose 116 Total Protein 7.3 Albumin 2.4 Calcium Level 8.5 Phosphorus Level 2.7 Magnesium Level 2.2 Alkaline Phosphatase 138 Aspartate Amino Transf (AST/SGOT) 24 Alanine Aminotransferase (ALT/SGPT) 13 Total Bilirubin 1.0 Sodium Level 143 Potassium Level 4.4 Chloride Level 107 Carbon Dioxide Level 30.1 Anion Gap 6 Estimat Glomerular Filtration Rate 104 Date/Time Source Procedure Growth Status 10/30/17 20:38 Blood Peripheral Aerobic Blood Culture - Final NO GROWTH IN 5 DAYS Complete 10/30/17 20:38 Blood Peripheral Anaerobic Blood Culture - Final NO GROWTH IN 5 DAYS Complete 11/13/17 12:00 Fluid Pleural Fluid Gram Stain - Final Complete 11/13/17 12:00 Fluid Pleural Fluid Body Fluid Culture - Final NO GROWTH IN 72 HRS.--AEROBICALLY OR ... Complete 11/04/17 05:08 Stool Stool Stool Occult Blood (NUBIA) - Final HEMOCCULT POSITIVE Complete 10/31/17 10:40 Sputum Endotracheal Gram Stain - Final Complete 10/31/17 10:40 Sputum Endotracheal Sputum Culture - Final HEAVY GROWTH NORMAL RESPIRATORY TERRELL Complete 10/29/17 00:00 Urine Catheterized Urine Urine Culture - Final Enterococcus Faecalis Complete Imaging Last Impressions GI Procedure 11/25/17 0000 Signed Impressions: CONCLUSION: Multiple filling defects with a biliary stent left in place. Chest X-Ray 11/25/17 0000 Signed Impressions: CONCLUSION: ET tube in the proximal right mainstem bronchus. The ET tube should be pulled b ack 4 to 5 cm. Bibasilar areas of consolidation or atelectasis being worse on the left with so me silhouetting of the left hemidiaphragm. This information was relayed to Radha, the patient's nurse by telephone. Abdomen/Pelvis CT 11/21/17 0000 Signed Impressions: The retroperitoneal hematoma on the right is smaller from the prior examination . It previously measured 21 x 11 x 12 cm and now measures 21 x 8 x 11 cm. No ac lito hemorrhage appreciated. A drainage catheter is seen within the gallbladder fossa and the gallbladder is totally decompressed. This is stable in appearance from the prior study. No biliary dilatation. A 3 mm nonobstructing left renal stone noted. Bibasilar areas of consolidation affecting the left lower lobe to a greater degree than the right. This is stable. The left effusion is smaller f rom the prior exam. The right effusion is stable. Colonic diverticuli without a cute abnormality. CONCLUSION: 1. The retroperitoneal hematoma on the right is smaller from the prior study. 2. Drainage catheter within the right upper quadrant felt to relate to a doug cystostomy tube. No biliary dilatation. 3. Nonobstructing left renal stone. 4. Colonic diverticulosis. 5. Improving left effusion with unchanged right effusion. 6. Bibasilar consolidation appears stable. Chest CT 11/12/17 Signed Impressions: CONCLUSION: 1. Bilateral pleural effusions left greater than right. Areas of infiltrate ve rsus atelectasis left lung base difficult to rule out a small superimposed pneu monia. 2. Dense coronary atherosclerotic disease. Chest Ultrasound 11/07/17 Signed Impressions: CONCLUSION: 1. Left-sided pleural effusion. Percutaneous Cholangiogram 11/01/17 Signed Impressions: CONCLUSION: 1. Uncomplicated percutaneous cholecystostomy as above. Renal Ultrasound 10/31/17 Signed Impressions: CONCLUSION: 1. No hydronephrosis. 2. Increased cortical echogenicity consistent with medical renal disease. Head Magnetic Resonance Angiography 10/31/17 Signed Impressions: CONCLUSION: 1. Unremarkable MRA of the brain. Head CT 10/31/17 Signed Impressions: CONCLUSION: 1. Negative CT Head non contrast. 2. No evidence of acute infarct, hemorrhage, mass or edema. Brain MRI 10/31/17 Signed Impressions: CONCLUSION: 1. Senescent changes with minimal periventricular ischemic white matter demyel ination. 2. No acute abnormality. Specifically, no acute infarction, mass or hemorrhage . Gall Bladder Ultrasound 10/30/17 Signed Impressions: CONCLUSION: 1. Fatty infiltration of the liver. 2. Multiple stones in the gallbladder. No biliary tract obstruction. Extremity Arterial Study 10/28/17 Signed Impressions: CONCLUSION: 1. Abnormal ABIs, left greater than right. The left DAVID is significantly dimin ished at 0.14. Aorta w/Runoff CTA 10/28/17 Signed Impressions: Service Date/Time: Saturday, October 28, 2017 21:50 - CONCLUSION: 1. Acute occlusion of the left inflow with concern for short segment occlusion involving the distal right inflow. This raises concern for an embolic event. 2. Right lower extremity shows scattered disease throughout the common femoral artery, SFA and [id number] popliteal artery with three-vessel runoff to the foot. 3. Left lower extremity with reconstitution of the common femoral artery with diseased out flow and two vessel runoff to the foot as detailed above. 4. 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 5. Hepatic steatosis. 6. Cholelithiasis. Juanjose Mckoen Jr., MD Physical Exam HEENT: Normocephalic; atraumatic CHEST : BS equal bilaterally CARDIAC: RRR ABDOMEN: Distended, firm, nontender, bowel sounds active, biliary drain with approximately 10 mL of bile colored drainage SKIN: Normal; no rash; no jaundice. E [employer]: Awake, ETT and unable to answer questions (Annika Tenorio) Assessment and Plan Assessment: (1) Sepsis ICD Codes: A41.9 - Sepsis, unspecified organism Status: Acute Plan Assessment: - Choledocholithiasis with elevated LFTs, trending down CT abdomen WO IV contrast (11/01) --> Gallstones, appears to be areas of increased density within the common bile duct concerning for choledocholithiasis. S/P IR for percutaneous cholecystostomy drain on 11/01 - Culture with heavy growth of gram positive and gram negative enteric terrell, no further work up Pt on Unasyn - Elevated LFTs- likely secondary to obstruction from above but liver work up pending Iron-145 TIBC-214 %sat-67.7 Ferritin-248 AFP-6.9 Hepatitis panel negative [place], AMA, ASMA negative. AAT-215 Ceruloplasmin-24 - Anemia, normocytic- with Hemoccult positive stools- no obvious GIB - Cold left leg- Heparin gtt - now discontinued (11/26) Pt S/P ERCP yesterday, was intubated prior to procedure for precaution, he remains orally intubated but currently on CPAP trial. ERCP --> Normal appearing ampulla. Lots of food/liquid in the stomach. Gastritis, fluid was suctioned as well as possible. Ampulla cannulated. PD normal. CBD dilated with multiple filling defects. Because of patients critical condition no attempt made to remove stones. 8.5 x 9 cm stent placed in the CBD under fluoroscopy. LFTs WNL today except alk phos mildly elevated. Plan Continue to monitor LFTs Repeat ERCP in 3 months Biliary drain per IR/surgery Our service will sign off, have pt follow up with GI after DC Please reconsult as needed Pt has been seen and examined by myself and Dr. Romo and this note is written on his behalf (Annika Tenorio) Physician Comments Seen and examined with MARTINA, now extubated and not voicing any complaints. LFTs normal. Biliary drain removal per ID/Surgery. REpeat ercp in 03 months. GI fu upon dc.GI will sign off, reconsult as needed. Thank you (Nik Romo MD) Problem Qualifiers (1) Sepsis: Qualified Codes: A41.9 - Sepsis, unspecified organism Annika Tenorio Nov 26, 2017 10:31 Nik Romo MD Nov 26, 2017 17:29
[2017-11-26] MEDS: SENNOSIDES 8.6 MG TAB PO SCH ×2 (10:35→22:15)
--- NOTE | 2017-11-26 15:16 | HHI.HCPN ---
Reason for visit a. To assist with evaluation and management of symptoms including: Shortness of breath, pain, debility, constipation. b. To assist medical decision maker(s) with: better understanding of current medical conditions; weighing benefits/burdens of medical treatment options; making medical treatment decisions. . (Rocio Aguiar) Subjective/Interval History Pt seen today to follow up abd discomfort, constipation, dyspnea. Seen with MARTINA Davis. Pt's Sister Jennifer at bedside. Per RN he has been c/o right leg wound pain. Pt says he is uncomfortable "everywhere." He is also c/o heartburn. He wants to drink. + scant pasty BM per RN. Pt had ERCP yesterday, remained intubated following procedure. CPAP trials went well over night and pt was extubated. On my evaluation pt does appear somewhat uncomfortable. He is somewhat distended. LFTs greatly improved since ERCP. Stones were not removed but stent was placed. Still with cholecystostomy drain. GI has signed off. Provided brief medical review to pt and his sister, addressed his improvements and limitations in respiratory status. (Rocio Aguiar) Advance Directives Living Will: Copy in medical record Health Care Surrogate: Copy in medical record (Rocio Aguiar) Advance Directive Specifics Date completed: 10/27/2012. . Health Care Surrogate(s): Patient electing sister Jennifer Galeas as healthcare surrogate decision maker. No alternate surrogates. . Documented care wishes: Living will with standard verbiage as it pertains to terminal condition, end- stage condition or persistent vegetative state. . (Rocio Aguiar) Objective Vital Signs Date Time Temp Pulse Resp B/P (MAP) Pulse Ox O2 Delivery O2 Flow Rate FiO2 11/26/17 12:00 98.0 79 11 119/69 (86) 94 11/26/17 12:00 40 11/26/17 12:00 79 11/26/17 10:00 89 11/26/17 08:52 12 11/26/17 08:37 97 Ventilator 40 11/26/17 08:37 97 40 11/26/17 08:00 97 11/26/17 08:00 98.1 97 19 132/68 (89) 96 11/26/17 08:00 40 11/26/17 07:00 98 Mechanical Ventilator 40 11/26/17 06:00 86 11/26/17 04:00 40 11/26/17 04:00 77 11/26/17 04:00 98.4 77 12 137/70 (92) 94 11/26/17 03:38 94 40 11/26/17 02:00 74 11/26/17 00:00 98.5 78 13 128/72 (90) 96 11/26/17 00:00 40 11/26/17 00:00 73 11/25/17 23:33 96 40 11/25/17 22:00 77 11/25/17 20:00 40 11/25/17 20:00 98.3 82 17 119/68 (85) 93 11/25/17 20:00 74 11/25/17 19:57 95 40 11/25/17 19:00 95 Mechanical Ventilator 40 11/25/17 18:00 71 11/25/17 17:18 10 11/25/17 16:00 97.6 69 8 129/62 (84) 93 11/25/17 16:00 69 11/25/17 16:00 40 11/25/17 15:37 94 40 Intake & Output 11/26/17 11/26/17 06:59 18:59 Intake Total 0 ml Output Total 380 ml Balance -380 ml Intake Oral 0 ml Output Urine Total 350 ml Drainage Total 30 ml # Bowel Movements 0 Physical Exam CONSTITUTIONAL/GENERAL: This is an adequately nourished patient, resting in bed. Seems to be mildly uncomfortable. TUBES/LINES/DRAINS: NC, PIV's, biliary drain, Peña catheter SKIN: No rashes, or lesions. multiple areas of ecchymoses on bilateral upper extremities CARDIOVASCULAR: RRR. Warm bilateral extremities, no cyanosis noted. RESPIRATORY/CHEST: mildly short of breath with conversation. + 4L o2 via NC. Coarse breath sounds, respirations shallow. GASTROINTESTINAL: Abdomen obese, distended, semi-firm, tympanitic. drain right quadrant- draining brownish yellow liq. BS present. MUSCULOSKELETAL: Extremities without clubbing, cyanosis. + pitting edema BLE R> L. NEUROLOGICAL: oriented, cooperative, moves all 4 extremities. . (Rocio Aguiar OCCUPATIONAL THERAPY SPECIALIST) Diagnostic Tests Laboratory Laboratory Tests Test 11/24/17 05:16 6/18/18 06:29 11/25/17 13:55 11/26/17 06:23 White Blood Count 7.5 TH/MM3 (4.0-11.0) 7.6 TH/MM3 (4.0-11.0) 5.3 TH/MM3 (4.0-11.0) Red Blood Count 3.41 MIL/MM3 (4.50-5.90) 3.33 MIL/MM3 (4.50-5.90) 3.54 MIL/MM3 (4.50-5.90) Hemoglobin 10.7 GM/DL (13.0-17.0) 10.4 GM/DL (13.0-17.0) 11.0 GM/DL (13.0-17.0) Hematocrit 31.8 % (39.0-51.0) 31.3 % (39.0-51.0) 32.7 % (39.0-51.0) Mean Corpuscular Volume 93.3 FL (80.0-100.0) 94.2 FL (80.0-100.0) 92.3 FL (80.0-100.0) Mean Corpuscular Hemoglobin 31.3 PG (27.0-34.0) 31.4 PG (27.0-34.0) 31.1 PG (27.0-34.0) Mean Corpuscular Hemoglobin Concent 33.6 % (32.0-36.0) 33.3 % (32.0-36.0) 33.6 % (32.0-36.0) Red Cell Distribution Width 18.7 % (11.6-17.2) 18.7 % (11.6-17.2) 18.7 % (11.6-17.2) Platelet Count 82 TH/MM3 (150-450) 88 TH/MM3 (150-450) 73 TH/MM3 (150-450) Mean Platelet Volume 11.6 FL (7.0-11.0) 12.1 FL (7.0-11.0) 11.7 FL (7.0-11.0) Blood Urea Nitrogen 43 MG/DL (7-18) 45 MG/DL (7-18) 15 MG/DL (7-18) Creatinine 0.77 MG/DL (0.60-1.30) 0.93 MG/DL (0.60-1.30) 0.75 MG/DL (0.60-1.30) Random Glucose 119 MG/DL (74-106) 168 MG/DL (74-106) 116 MG/DL (74-106) Calcium Level 8.2 MG/DL (8.5-10.1) 8.3 MG/DL (8.5-10.1) 8.5 MG/DL (8.5-10.1) Sodium Level 146 MEQ/L (136-145) 145 MEQ/L (136-145) 143 MEQ/L (136-145) Potassium Level 4.1 MEQ/L (3.5-5.1) 4.1 MEQ/L (3.5-5.1) 4.4 MEQ/L (3.5-5.1) Chloride Level 111 MEQ/L (98-107) 108 MEQ/L (98-107) 107 MEQ/L (98-107) Carbon Dioxide Level 25.5 MEQ/L (21.0-32.0) 26.4 MEQ/L (21.0-32.0) 30.1 MEQ/L (21.0-32.0) Anion Gap 10 MEQ/L (5-15) 11 MEQ/L (5-15) 6 MEQ/L (5-15) Estimat Glomerular Filtration Rate 100 ML/MIN (>89) 81 ML/MIN (>89) 104 ML/MIN (>89) Blood Gas Puncture Site RT RADIAL Blood Gas Patient Temperature 98.6 Blood Gas HCO3 29 mmol/L (22-26) Blood Gas Base Excess 5.1 mmol/L (-2-2) Blood Gas Oxygen Saturation 96 % (90-100) Arterial Blood pH 7.45 (7.380-7.420) Arterial Blood Partial Pressure CO2 42 mmHg (38-42) Arterial Blood Partial Pressure O2 121 mmHg (61-120) Arterial Blood Oxygen Content 14.7 Vol % (12.0-20.0) Arterial Blood Carboxyhemoglobin 1.5 % (0-4) Arterial Blood Methemoglobin 1.3 % (0-2) Blood Gas Hemoglobin 10.7 G/DL (12.0-16.0) Oxygen Delivery Device VENTILATOR Blood Gas Ventilator Setting Blood Gas Inspired Oxygen 40 % Neutrophils (%) (Auto) 94.0 % (16.0-70.0) Lymphocytes (%) (Auto) 3.8 % (9.0-44.0) Monocytes (%) (Auto) 1.9 % (0.0-8.0) Eosinophils (%) (Auto) 0.2 % (0.0-4.0) Basophils (%) (Auto) 0.1 % (0.0-2.0) Neutrophils # (Auto) 5.0 TH/MM3 (1.8-7.7) Lymphocytes # (Auto) 0.2 TH/MM3 (1.0-4.8) Monocytes # (Auto) 0.1 TH/MM3 (0-0.9) Eosinophils # (Auto) 0.0 TH/MM3 (0-0.4) Basophils # (Auto) 0.0 TH/MM3 (0-0.2) CBC Comment AUTO DIFF Differential Total Cells Counted 100 Neutrophils % (Manual) 78 % (16-70) Band Neutrophils % 18 % (0-6) Lymphocytes % 3 % (9-44) Monocytes % 1 % (0-8) Neutrophils # (Manual) 5.1 TH/MM3 (1.8-7.7) Differential Comment FINAL DIFF MANUAL Toxic Granulation 1+ (NORMAL) Platelet Estimate LOW (NORMAL) Platelet Morphology Comment NORMAL (NORMAL) Hematology Comments Total Protein 7.3 GM/DL (6.4-8.2) Albumin 2.4 GM/DL (3.4-5.0) Phosphorus Level 2.7 MG/DL (2.5-4.9) Magnesium Level 2.2 MG/DL (1.5-2.5) Alkaline Phosphatase 138 U/L (45-117) Aspartate Amino Transf (AST/SGOT) 24 U/L (15-37) Alanine Aminotransferase (ALT/SGPT) 13 U/L (12-78) Total Bilirubin 1.0 MG/DL (0.2-1.0) Test 11/26/17 12:05 Blood Gas Puncture Site RT RADIAL Blood Gas Patient Temperature 98.6 Blood Gas HCO3 29 mmol/L (22-26) Blood Gas Base Excess 4.2 mmol/L (-2-2) Blood Gas Oxygen Saturation 94 % (90-100) Arterial Blood pH 7.39 (7.380-7.420) Arterial Blood Partial Pressure CO2 49 mmHg (38-42) Arterial Blood Partial Pressure O2 102 mmHg (61-120) Arterial Blood Oxygen Content 15.0 Vol % (12.0-20.0) Arterial Blood Carboxyhemoglobin 1.4 % (0-4) Arterial Blood Methemoglobin 1.5 % (0-2) Blood Gas Hemoglobin 11.2 G/DL (12.0-16.0) Oxygen Delivery Device VENTILATOR Blood Gas Ventilator Setting CPAP 5/10PS Blood Gas Inspired Oxygen 40 % (Rocio Aguiar OCCUPATIONAL THERAPY SPECIALIST) Result Diagram: 11/26/1762211/26/17622 Imaging Last Impressions GI Procedure 11/25/17 Signed Impressions: CONCLUSION: Multiple filling defects with a biliary stent left in place. Chest X-Ray 11/25/17 Signed Impressions: CONCLUSION: ET tube in the proximal right mainstem bronchus. The ET tube should be pulled b ack 4 to 5 cm. Bibasilar areas of consolidation or atelectasis being worse on the left with so me silhouetting of the left hemidiaphragm. This information was relayed to Radha, the patient's nurse by telephone. Abdomen/Pelvis CT 11/21/17 Signed Impressions: The retroperitoneal hematoma on the right is smaller from the prior examination . It previously measured 21 x 11 x 12 cm and now measures 21 x 8 x 11 cm. No ac lito hemorrhage appreciated. A drainage catheter is seen within the gallbladder fossa and the gallbladder is totally decompressed. This is stable in appearance from the prior study. No biliary dilatation. A 3 mm nonobstructing left renal stone noted. Bibasilar areas of consolidation affecting the left lower lobe to a greater degree than the right. This is stable. The left effusion is smaller f rom the prior exam. The right effusion is stable. Colonic diverticuli without a cute abnormality. CONCLUSION: 1. The retroperitoneal hematoma on the right is smaller from the prior study. 2. Drainage catheter within the right upper quadrant felt to relate to a doug cystostomy tube. No biliary dilatation. 3. Nonobstructing left renal stone. 4. Colonic diverticulosis. 5. Improving left effusion with unchanged right effusion. 6. Bibasilar consolidation appears stable. Chest CT 11/12/17 Signed Impressions: CONCLUSION: 1. Bilateral pleural effusions left greater than right. Areas of infiltrate ve rsus atelectasis left lung base difficult to rule out a small superimposed pneu monia. 2. Dense coronary atherosclerotic disease. Chest Ultrasound 11/07/17 Signed Impressions: CONCLUSION: 1. Left-sided pleural effusion. Percutaneous Cholangiogram 11/01/17 Signed Impressions: CONCLUSION: 1. Uncomplicated percutaneous cholecystostomy as above. Renal Ultrasound 10/31/17 Signed Impressions: CONCLUSION: 1. No hydronephrosis. 2. Increased cortical echogenicity consistent with medical renal disease. Head Magnetic Resonance Angiography 10/31/17 Signed Impressions: CONCLUSION: 1. Unremarkable MRA of the brain. Head CT 10/31/17 Signed Impressions: CONCLUSION: 1. Negative CT Head non contrast. 2. No evidence of acute infarct, hemorrhage, mass or edema. Brain MRI 10/31/17 Signed Impressions: CONCLUSION: 1. Senescent changes with minimal periventricular ischemic white matter demyel ination. 2. No acute abnormality. Specifically, no acute infarction, mass or hemorrhage . Gall Bladder Ultrasound 10/30/17 Signed Impressions: CONCLUSION: 1. Fatty infiltration of the liver. 2. Multiple stones in the gallbladder. No biliary tract obstruction. Extremity Arterial Study 10/28/17 Signed Impressions: CONCLUSION: 1. Abnormal ABIs, left greater than right. The left DAVID is significantly dimin ished at 0.14. Aorta w/Runoff CTA 10/28/17 Signed Impressions: Service Date/Time: Saturday, October 28, 2017 21:50 - CONCLUSION: 1. Acute occlusion of the left inflow with concern for short segment occlusion involving the distal right inflow. This raises concern for an embolic event. 2. Right lower extremity shows scattered disease throughout the common femoral artery, SFA and [id number] popliteal artery with three-vessel runoff to the foot. 3. Left lower extremity with reconstitution of the common femoral artery with diseased out flow and two vessel runoff to the foot as detailed above. 4. 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 5. Hepatic steatosis. 6. Cholelithiasis. Juanjose Mckeon Jr., MD Procedures * 10/31/17: Endotracheal intubation * 11/01/17: Biliary drain placement * 11/07/17: Extubation * 11/13/17: Left-sided pigtail chest tube * 11/17/17: chest tube removed . (Rocio Aguiar) Assessment and Plan Disease Oriented Problem List: (1) COPD (chronic obstructive pulmonary disease) (2) Pneumonia (3) Acute renal failure (4) Retroperitoneal bleed (5) Peripheral vascular disease (6) Acute blood loss anemia (7) CKD (chronic kidney disease) stage 4, GFR 15-29 ml/min (8) Choledocholithiasis (9) Physical deconditioning (10) Sepsis (11) Ischemia of left lower extremity Symptom Scale: (1) Dyspnea 0-10 Scale: Unable to quantify (2) Pain 0-10 Scale: Unable to quantify (3) Debility 0-10 Scale: Unable to quantify (4) Constipation 0-10 Scale: Unable to quantify Pertinent Non-Medical Issues Psychosocial: Patient originally from [facility]. Moved to [place] 6 years ago. He is , has 3 biological children. 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 No service. Spiritual: No buddhist affiliation. Legal: Advance directives completed. Ethical issues impacting care: No ethical issues identified. . Important Contacts Sister/healthcare surrogate: Jennifer Adal . Prognosis Mr. Bates is a 67-year-old male with a medical history significant for COPD, hypertension, CAD and peripheral vascular disease. Patient presented to ED via EMS on 10/28/17 for evaluation of shortness of breath and pain to his left leg. He was found with occlusion of left iliac artery, not a surgical candidate secondary to sepsis, pneumonia and respiratory failure. Clinical course complicated by acute on chronic renal failure, choledocholithiasis requiring biliary drain placement, retroperitoneal bleed with development of hemorrhagic shock. Patient remains in critical condition, high risk for further complications, decline and . Overall prognosis is guarded. . Code Status: Alternative Code Plan * CODE STATUS: Alternate code, intubation only. * HEALTHCARE DECISION-MAKING: Patient participating medical decision making, however, intermittent confusion secondary to encephalopathy/acute illness. Advanced directives completed, patient designated his sister Jennifer Galeas as healthcare surrogate decision maker. No alternate surrogate designated. Palliative care recommends shared decision making with patient and sister given intermittent confusion. In addition, patient appears to rely on sister for guidance. * GOALS OF CARE: Patient supported by Sister Jennifer electing continuation of aggressive management short of NO cardiac resuscitation. Patient and sister receptive to palliative care follow-up. * SYMPTOMS: * = Dyspnea: Multifactorial secondary to COPD, acute illness, physical deconditioning, anemia -retroperitoneal hematoma. Currently on 4Lo2 via NC, PRN duonebs. CXR 11/25 showed bibasilar consolidation vs atelectasis worese on left. Currently on Solu-Medrol 40 mg daily. * = Pain: Secondary to multiple lines, prolonged hospitalization/Bedrest, constipation, biliary drain. pt c/o diffuse discomfort, right leg pain. Dilaudid 1mg q4h PRN. [place] 7.5/325 mg available as needed. * = Debility: Secondary to prolonged hospitalization and acute on chronic illness. Likely to continue to worsen. PT following, PT and rehab recommended. per case mgmt being followed by Richard and Stanislav d/c to SNF, acute rehab/LTC * = constipation: went 10days no BM, did have mult BMs after enemas. + scant pasty BM today. Has diet devoid of fiber. BS +. CT 11/21 showed decompressed GB. continue scheduled bowel regimen. * =r/o dysphagia s/p extubation - remained intubated 1 day after ERCP. consult DOUBLE NEEDLE OPERATOR LOCKSTITCH for swallow eval * = heartburn - pt c/o heartburn. takes omeprazole at home. on famotidine currently, still having discomfort. May benefit from PPI * Palliative care will continue to follow up for further clarification of goals of care as patient's clinical course continues to evolve. (Rocio Aguiar) Time Spent Total Floor Time (mins): 25 (chart review, PE, discussion with pt, discussion with pt's sister, discussion with RN) (Rocio Aguiar [facility]) Attestation To help prompt me to consider important information that might be impacting today's encounter and assessment, information from prior notes written by myself or my colleagues may have been "brought forward" into today's note. My signature on this note, however, is an attestation that I personally performed the exam, history, and/or decision-making noted today, and, unless otherwise indicated, the interactions with patient, family, and staff as well as the review of records all occurred today. I also attest that the listed assessment and stated plan reflect my best clinical judgment today based on the combination of historical information, prior notes, and today's exam/ interactions. When time spent is documented, it refers only to time spent today by the signer, or if indicated, combined time spent today by collaborating physician/nurse practitioner. (Rocio Aguiar) Collaborating MD Comments dual visit shanita MACK, concur with above assessment, documentation. (Maria A Davis) Rocio Aguiar Nov 26, 2017 15:16 Maria A Davis Nov 26, 2017 17:25
[2017-11-26] MEDS: ONDANSETRON HCL 4 MG/2 ML VIAL IV PUSH PRN (16:51)
--- NOTE | 2017-11-26 19:31 | HHI.PR ---
Subjective Remarks 67 YOWM with COPD,Sepsis, ischemia of leg mild sob cough, occ sp No Fever Had ERCP Extubated On NC Has abd distension, vomited once Objective Vital Signs Vital Signs Date Time Temp Pulse Resp B/P (MAP) Pulse Ox O2 Delivery O2 Flow Rate FiO2 11/26/17 16:29 92 Nasal Cannula 4 11/26/17 16:00 85 11/26/17 16:00 97.8 85 14 123/65 (84) 93 11/26/17 14:00 85 11/26/17 12:00 98.0 79 11 119/69 (86) 94 11/26/17 12:00 40 11/26/17 12:00 79 11/26/17 10:00 89 11/26/17 08:52 12 11/26/17 08:37 97 Ventilator 40 11/26/17 08:37 97 40 11/26/17 08:00 97 11/26/17 08:00 98.1 97 19 132/68 (89) 96 11/26/17 08:00 40 11/26/17 07:00 98 Mechanical Ventilator 40 11/26/17 06:00 86 11/26/17 04:00 40 11/26/17 04:00 77 11/26/17 04:00 98.4 77 12 137/70 (92) 94 11/26/17 03:38 94 40 11/26/17 02:00 74 11/26/17 00:00 98.5 78 13 128/72 (90) 96 11/26/17 00:00 40 11/26/17 00:00 73 11/25/17 23:33 96 40 11/25/17 22:00 77 11/25/17 20:00 40 11/25/17 20:00 98.3 82 17 119/68 (85) 93 11/25/17 20:00 74 11/25/17 19:57 95 40 I/O 11/25/17 11/25/17 11/25/17 11/26/17 11/26/17 11/26/17 06:59 14:59 22:59 06:59 14:59 22:59 Intake Total 100 ml 0 ml 0 ml Output Total 610 ml 820 ml 380 ml 315 ml Balance -610 ml 100 ml -820 ml -380 ml -315 ml Intake Oral 0 ml 0 ml Other 100 ml Output Urine Total 575 ml 750 ml 350 ml 300 ml Drainage Total 35 ml 70 ml 30 ml 15 ml # Bowel Movements 0 0 1 Result Diagram: 11/26/1762211/26/17622 Objective Remarks GENERAL: WBWN WM, mild abd discomfort SKIN: Warm and dry. HEAD: Normocephalic. EYES: No scleral icterus. No injection or drainage. NECK: Supple, trachea midline. No JVD or lymphadenopathy. CARDIOVASCULAR: Regular rate and rhythm without murmurs, gallops, or rubs. RESPIRATORY: Breath sounds equal bilaterally. No accessory muscle use. GASTROINTESTINAL: Abdomen soft, non-tender, nondistended. MUSCULOSKELETAL: No cyanosis, or edema. Cold left leg BACK: Nontender without obvious deformity. No CVA tenderness. A/P Assessment and Plan IMPRESSION: 1. Sepsis. 2. Chronic obstructive pulmonary disease, mild exacerbation. 3. Left basilar infiltrate. 4. Urinary tract infection 5. Encephalopathy. 6. Cold left leg.-resolved 7. Thrombocytopenia. 8. VDRF--reintubated 11/25 9. Severe anemia, retroperitoneal bleed PLAN: NGT , intermittent suction Cont Abx per ID Monitor renal functions DW RN at BS Monitor H/H Dennis Johnson MD Nov 26, 2017 19:31
[2017-11-26] MEDS ORDERED: METOCLOPRAMIDE HCL 10 MG/2 ML VIAL IV ONE (19:45)
[2017-11-26] MEDS ORDERED: METOCLOPRAMIDE HCL 10 MG/2 ML VIAL IV PRN (20:00)
--- NOTE | 2017-11-26 22:44 | RADRPT ---
EXAM DATE: 11/26/2017 10:39 PM EDT AGE/SEX: 67 years / Male INDICATIONS: NG tube placement. CLINICAL DATA: This is the patient's initial encounter. Patient reports that signs and symptoms have been present for 1 day and indicates a pain score of 8/10. MEDICAL/SURGICAL HISTORY: Chronic obstructive pulmonary disease. None. COMPARISON: [facility] [place], [place] ABDOMEN & PELVIS W/O CONTRAST, 11/21/2017. . FINDINGS: Suction-type nasogastric catheter is coiled in the fundus of the stomach. There is a battery artery s tent in place. There is a right upper quadrant drainage catheter in place. There is stable pleural-pa renchymal disease in the left lower lung zone. Large amount of stool is noted throughout the colon wh ich appears dilated. CONCLUSION: 1. NGT coiled in the fundus of the stomach. 2. Large amount of stool throughout the visualized portions of the colon which appear dilated. Findi ngs likely reflect colonic ileus although differential considerations include distal partial chronic obstruction. Electronically signed by: David Dixon MD 11/26/2017 10:43 PM EDT
[2017-11-27] VITALS (14 sets, daily range): BP systolic 110–131; BP diastolic 59–73; PULSE 84–104; RESP 13–20; TEMP 97.8–98.7; O2SAT 91–95
[2017-11-27] MEDS: RESP: ALBUTEROL 2.5 MG/IPRATROPIUM 0.5 MG NEB (SCH) NEB ×3 (03:27→20:09)
[2017-11-27] MEDS: CHLORHEXIDINE GLUCONATE 2 % 1 PACK (2 CLOTHS) TOP SCH (03:54)
[2017-11-27 05:06] LABS: AUTOMATED NEUTROPHIL # 4.4 TH/MM3 (1.8-7.7); BASOPHIL % 0.3 % (0.0-2.0); EOSINOPHIL % 0.1 % (0.0-4.0); HEMATOCRIT 33.8 % (39.0-51.0); HEMOGLOBIN 11.1 GM/DL (13.0-17.0); LYMPH % 9.2 % (9.0-44.0); LYMPHOCYTE # 0.5 TH/MM3 (1.0-4.8); MEAN CELL VOLUME 93.6 FL (80.0-100.0); MEAN CORPUSCULAR HEMOGLOBIN 30.7 PG (27.0-34.0); MEAN CORPUSCULAR HGB CONC 32.9 % (32.0-36.0); MEAN PLATELET VOLUME 11.5 FL (7.0-11.0); MONOCYTE # 0.1 TH/MM3 (0-0.9); NEUT % 88.4 % (16.0-70.0); PLATELET COUNT 66 TH/MM3 (150-450); RED BLOOD COUNT 3.61 MIL/MM3 (4.50-5.90); RED CELL DISTRIBUTION WIDTH 18.3 % (11.6-17.2)
[2017-11-27] MEDS: hydrALAZINE HCL 50 MG TAB PO SCH ×3 (05:09→22:09)
[2017-11-27] MEDS: INSULIN NovoLIN REGULAR SUPPLEMENTAL SCALE SQ SCH ×5 (05:11→23:39)
[2017-11-27 05:29] LABS: BICARBONATE 25.1 MEQ/L (21.0-32.0); CALCIUM 7.8 MG/DL (8.5-10.1); CREATININE 1.13 MG/DL (0.60-1.30); MAGNESIUM 2.7 MG/DL (1.5-2.5); PHOSPHORUS 3.4 MG/DL (2.5-4.9)
[2017-11-27 06:46] LABS: BANDS 37 % (0-6); LYMPHOCYTES 5 % (9-44); MYELOCYTES 1 % (0-0); NEUTROPHIL # MANUAL DIFF 4.8 TH/MM3 (1.8-7.7); POLYS (SEG NEUTROPHILS) 57 % (16-70)
[2017-11-27 06:47] LABS: DOHLE BODIES PRESENT (NONE SEEN)
[2017-11-27 06:48] LABS: STOMATOCYTES 1+ (NORMAL)
[2017-11-27] MEDS: NYSTATIN SUSP 500,000 U/5 ML CUP SWISH-SWAL SCH ×4 (09:00→20:48)
[2017-11-27] MEDS: DILTIAZEM-CD 240 MG CAP ER PO SCH (09:29)
[2017-11-27] MEDS: METOPROLOL TARTRATE 50 MG TAB PO SCH ×2 (09:29→20:48)
[2017-11-27] MEDS: methylPREDNISolone SOD SUCC 40 MG/1 ML VIAL IV PUSH SCH (09:29)
[2017-11-27] MEDS: FAMOTIDINE 20 MG TAB PO SCH ×2 (09:29→20:48)
[2017-11-27] MEDS: SENNOSIDES 8.6 MG TAB PO SCH ×2 (09:29→22:09)
[2017-11-27] MEDS: CHLORHEXIDINE 0.12% (ORAL KIT) 15 ML CUP MT SCH ×2 (09:30→20:00)
[2017-11-27] MEDS: BUDESONIDE-FORMOTEROL 160/4.5 MCG INHALER INH SCH ×2 (09:30→20:48)
[2017-11-27] MEDS: SODIUM CHLORIDE 0.9% FLUSH 10 ML FLUSH IV FLUSH SCH ×2 (09:30→20:49)
--- NOTE | 2017-11-27 09:54 | HHI.CCPN ---
Subjective Remarks/Hospital Course 67-year-old male presents to the emergency department via EMS for evaluation of shortness of breath and pain and numbness to the left leg. Patient believes that he is shortness of breath is related to the pain in his leg. He cannot feel his leg from his groin down. He denies any history of the same. He does report history of COPD. He denies any known fevers or chills. He denies chest pain. Patient received 1 L normal saline bolus via EMS. Patient denies any history of bleeding or blood clots. No recent surgery or travel. No hemoptysis. No history of DVT/PE. He denies leg edema. Patient states the pain is 10/10 to the left leg. No exacerbating or alleviating factors. Moderate severity. 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 The right inflow is heavily diseased as well. The patient was evaluated by vascular surgeon ship construction teacher and was immediately started on heparin drip. SUBJ 10/29: Remains critically ill, encephalopathy. 4 out of 4 bottles positive for GNR. I will change Rocephin to Zosyn renally dosed to cover for Pseudomonas also. Continue azithromycin. Creatinine still elevated but slightly improved. WBC count slightly increased 17.2 now with 24% bands. Source of GNR sepsis could be either UTI or pneumonia. Will consult ID as well. Remains on IV heparin for acute left limb ischemia 10/30: platelets falling >50% again today. Cr still rising, but could be ATN/ contrast nephropathy. blood cultures growing e. coli by PCR, full speciation to follow. urine culture pending. discussed case with Dr. Lopez, will stop heparin , start argatroban and send HIT/CHARLEEN. denies complaints for me, but does have objective tenderness on palpation, RUQ. 10/31: Emergently intubated today a.m. by Dr. Puckett for worsening mental status, encephalopathy and worsening respiratory failure. Prior to intubation Dr. Puckett ' exam revealed right upper quadrant tenderness. Ultrasound of the gallbladder yesterday showed gallstones. Overnight Argatroban was supratherapeutic and was held, platelet count also dropped to 30,000, HIT screen is pending. Postintubation bilateral pupils are reactive but unequal. Will repeat CT of the head, CT abdomen pelvis. BUN 49/Creat 2.7, leukocytosis persisting 11/01: no improvements. ct abd/pelvis with evidence of possible choledocholithiasis. perc doug tube planned for this AM. on esmolol infusion for afib RVR. fio2 increased to 70%. 11/02: Sodium bicarbonate infusion continued per nephrology in the setting of rhabdomyolysis serial creatinine kinase pending. Cholecystostomy drain placement 100 cc overnight. Continued thrombocytopenia, CBC, serotonin release assay pending. Plan for reinitiation of heparin awaiting GI consultation for possible invasive procedures prior to restarting heparin. Patient sinus rhythm with occasional PAC's. 11/03: No acute events overnight. Sodium bicarbonate infusion discontinued this a.m. had any improved this a.m.. Chest x-ray showed worsening consolidation, FiO2 requirements were increased to 65% during the night. CPAP trials on hold currently. Biliary drainage from cholecystostomy tube revealing gram-negative rods. The patient continues on antibiotics. Bilateral dorsalis pedis pulses monophasic signals by Doppler. Heparin infusion reinitiated. 11/04: Sodium bicarbonate infusion discontinued at 7 AM yesterday. Chest x-ray worsening consolidation versus pleural effusions. FiO2 slightly decreased to 60 %, ABG improving. Pending quantification via ultrasound of pleural fluid in am. Lasix 40mg x1 additional dose provided today . PPN discontinued discussed with Dr. Colon tube feeds initiated at [facility]. Dietary consult ordered. 11/05: Afebrile. Patient tolerating tube feeds advanced to goal rate of 55 cc/ hr. chest x-ray with slight improvement FiO2 decreased to 55% ABG pending. Initiation of CPAP trial to be attempted today. 11/06: Late entry note. Patient seen at 628am. Patient was started on CPAP and continues on CPAP greater than 10 hours. Patient following commands, currently on Precedex infusion. 11/07: Patient remained on CPAP trials for approximately 12 hours yesterday and discontinued because of agitation. CPAP trials reinitiated this a.m. Patient complaint of sore throat Lortab ordered. Patient continues on Precedex for ventilator weaning process. Chest x-ray still shows pulmonary edema, additional dose Lasix 401 dose given this a.m.. When infusion continued, monophasic Doppler signals bilateral dorsalis pedal pulses noted. 11/08: Afebrile . Patient successfully extubated yesterday. Remains on O2 at 4 L nasal cannula O2 saturation 94-95%. Patient continues on heparin infusion, she was noted to have 9 BMs last evening plan for serial H&H's concern for possible stool with occult blood. Repeat stool for occult blood. Plan for possible bedside thoracentesis ,if respiratory requirements increase, currently on O2 4 L via nasal cannula in no apparent distress. 11/11 Late entry, notified of re-consult at 17:[address] Johnson, saw patient and immediately placed L IJ CVL because patient had ripped out an IV and had insufficient peripheral IV access given clinical condition. RN states patient had Hgb 7.5 this morning. Trend was unusual with Hb 8.3--> 12.5 (without transfusion)-->7.5 and lab recommended repeat. Repeat was drawn and was 4.2. Meanwhile, while awaiting re-draw patient became hypotensive, MAP down in the 40s, and was given albumin 25 gram IV. Now he has received 1 unit PRBC and BP improved to 120s/60s. Getting 2 additional units of PRBC stat. Nurse states heparin has been off since 12:30. Sending stat coags/fibrinogen. Patient denies nausea or vomiting. He has some right-sided abdominal pain. There is dark brown drainage from cholecystostomy tube. He has not had a bowel movement in 48 hours. No obvious evidence of GI bleeding. CT abdomen and pelvis has been ordered as "urgent", now giving additional PRBC and then will obtain stat. Gastroenterology has been following and I have notified them of the anemia, though this does not appear to be GI source at this time. 11/12 CT last night showed large retroperitoneal hematoma. Transfused total of 3 units PRBC yest evening. Hgb now 8.3. Coags/fibrinogen in acceptable range this morning, heparin drip off. Patient states much less abdominal pain today. He is alert and oriented now. Coughing, O2 requirement up to 6 L NC, afebrile. 11/13 Had some hemoptysis yesterday. CT with bilateral pleural effusions/ LLL atelectasis vs infiltrate. Now on 8 L SM, tachypneic with more labored breathing today. Edematous, will diurese. He is alert and capacitated currently and agrees to L pleural drainage. Transfused 1 unit PRBC yesterday for Hgb 7.4. He still has some Right sided abdominal pain 11/14: Resting in bed on simple facemask. Hemoglobin 6.9 this morning. Patient denies any worsening shortness of breath or chest pain. 1 unit PRBCs being transfused. Left-sided pigtail catheter placed 11/13 drain 650 cc 11/15 Remains on simple mask, breathing a little labored. L pigtail catheter output is serous, 270 last 24 hours. Planned to tap R pleural effusion but when performed u/s the fluid had decreased significantly and did not appear amenable to drainage; continue diuresis. Labs are pending, nurse is about to draw them. Afebrile 11/16 Diuresing, creatinine stable. On NC. Afebrile. L Chest tube output 220. Hgb 7.6 from 8.8. Transfusing 1 unit PRBC. Noted lipase 827. Patient denies n/v /abdominal tenderness. He says he is feeling "much better" and denies abd pain. 11/17 Chest tube removed yesterday without complication. Labored breathing when he got OOB overnight. He is tired of wearing simple mask so he wants to try HFNC. Depressed today, is worried his ERCP will get canceled. Wants to get out of the hospital. Case management working on transfer to [facility] when cleared following ERCP. 11/18 Patient is on high flow oxygen with 70% FIO2. For ERCP today. 11/19 No events overnight. ERCP wasn't done yesterday as patient is on high flow oxygen. Remains on 25L with 70% FIO2. Afebrile. 11/20: no acute events. tolerating a diet. on high flow NC at 70% fio2. not dyspneic. Subjective: 11/21: repeat CT abd/pelvis with interval decrease in size of hematoma. no other changes. remains on HFNC despite diuresis. 11/22 No events overnight. Down to 3L oxygen with good sats. Afebrile. 11/23: remains on 3L o2 by NC. denies complaints. plan for ERCP saturday. 11/24 Patient went for ERCP and kept intubated post procedure CCM consulted for CC management. On no sedation. 11/25 No events overnight. Tolerating CPAP PS 10, PEEP:5. Awake and alert. 11/27: Extubated yesterday tolerating well. Abdomen remains distended. KUB yesterday showed possible colonic ileus, fecal impaction. GI re consult requested Objective Vital Signs Date Time Temp Pulse Resp B/P (MAP) Pulse Ox O2 Delivery O2 Flow Rate FiO2 11/27/17 08:29 93 Nasal Cannula 4.00 11/27/17 06:00 104 11/27/17 04:17 16 11/27/17 04:00 98.7 115/73 (87) 11/26/17 12:00 40 Intake and Output 11/27/17 11/27/17 11/28/17 08:00 16:00 00:00 Intake Total 120 ml Output Total 760 ml Balance -640 ml Result Diagram: 11/27/17 0444 11/27/17 0444 Other Results Microbiology Date/Time Source Procedure Growth Status 11/26/17 22:00 Gastric Gastric Occult Blood - Final GASTROCCULT NEGATIVE Complete Laboratory Tests Test 11/26/17 12:05 Blood Gas Puncture Site RT RADIAL Blood Gas Patient Temperature 98.6 Blood Gas HCO3 29 mmol/L (22-26) Blood Gas Base Excess 4.2 mmol/L (-2-2) Blood Gas Oxygen Saturation 94 % (90-100) Arterial Blood pH 7.39 (7.380-7.420) Arterial Blood Partial Pressure CO2 49 mmHg (38-42) Arterial Blood Partial Pressure O2 102 mmHg (61-120) Arterial Blood Oxygen Content 15.0 Vol % (12.0-20.0) Arterial Blood Carboxyhemoglobin 1.4 % (0-4) Arterial Blood Methemoglobin 1.5 % (0-2) Blood Gas Hemoglobin 11.2 G/DL (12.0-16.0) Oxygen Delivery Device VENTILATOR Blood Gas Ventilator Setting CPAP 5/10PS Blood Gas Inspired Oxygen 40 % Imaging Last Impressions GI Procedure 11/25/17 0000 Signed Impressions: CONCLUSION: Multiple filling defects with a biliary stent left in place. Chest X-Ray 11/25/17 0000 Signed Impressions: CONCLUSION: ET tube in the proximal right mainstem bronchus. The ET tube should be pulled b ack 4 to 5 cm. Bibasilar areas of consolidation or atelectasis being worse on the left with so me silhouetting of the left hemidiaphragm. This information was relayed to Radha, the patient's nurse by telephone. Abdomen/Pelvis CT 11/21/17 0000 Signed Impressions: The retroperitoneal hematoma on the right is smaller from the prior examination . It previously measured 21 x 11 x 12 cm and now measures 21 x 8 x 11 cm. No ac lito hemorrhage appreciated. A drainage catheter is seen within the gallbladder fossa and the gallbladder is totally decompressed. This is stable in appearance from the prior study. No biliary dilatation. A 3 mm nonobstructing left renal stone noted. Bibasilar areas of consolidation affecting the left lower lobe to a greater degree than the right. This is stable. The left effusion is smaller f rom the prior exam. The right effusion is stable. Colonic diverticuli without a cute abnormality. CONCLUSION: 1. The retroperitoneal hematoma on the right is smaller from the prior study. 2. Drainage catheter within the right upper quadrant felt to relate to a doug cystostomy tube. No biliary dilatation. 3. Nonobstructing left renal stone. 4. Colonic diverticulosis. 5. Improving left effusion with unchanged right effusion. 6. Bibasilar consolidation appears stable. Chest CT 11/12/17 Signed Impressions: CONCLUSION: 1. Bilateral pleural effusions left greater than right. Areas of infiltrate ve rsus atelectasis left lung base difficult to rule out a small superimposed pneu monia. 2. Dense coronary atherosclerotic disease. Chest Ultrasound 11/07/17 Signed Impressions: CONCLUSION: 1. Left-sided pleural effusion. Percutaneous Cholangiogram 11/01/17 Signed Impressions: CONCLUSION: 1. Uncomplicated percutaneous cholecystostomy as above. Renal Ultrasound 10/31/17 Signed Impressions: CONCLUSION: 1. No hydronephrosis. 2. Increased cortical echogenicity consistent with medical renal disease. Head Magnetic Resonance Angiography 10/31/17 Signed Impressions: CONCLUSION: 1. Unremarkable MRA of the brain. Head CT 10/31/17 Signed Impressions: CONCLUSION: 1. Negative CT Head non contrast. 2. No evidence of acute infarct, hemorrhage, mass or edema. Brain MRI 10/31/17 Signed Impressions: CONCLUSION: 1. Senescent changes with minimal periventricular ischemic white matter demyel ination. 2. No acute abnormality. Specifically, no acute infarction, mass or hemorrhage . Gall Bladder Ultrasound 10/30/17 Signed Impressions: CONCLUSION: 1. Fatty infiltration of the liver. 2. Multiple stones in the gallbladder. No biliary tract obstruction. Extremity Arterial Study 5/21/18 0000 Signed Impressions: CONCLUSION: 1. Abnormal ABIs, left greater than right. The left DAVID is significantly dimin ished at 0.14. Aorta w/Runoff CTA 10/28/17 0000 Signed Impressions: Service Date/Time: Saturday, October 28, 2017 21:50 - CONCLUSION: 1. Acute occlusion of the left inflow with concern for short segment occlusion involving the distal right inflow. This raises concern for an embolic event. 2. Right lower extremity shows scattered disease throughout the common femoral artery, SFA and [id number]-uah-[id number] popliteal artery with three-vessel runoff to the foot. 3. Left lower extremity with reconstitution of the common femoral artery with diseased out flow and two vessel runoff to the foot as detailed above. 4. 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 5. Hepatic steatosis. 6. Cholelithiasis. Juanjose Mckeon Jr., MD Objective Remarks GENERAL: middle-aged male, lying in bed NGT in place SKIN: Warm and dry. HEAD: Normocephalic. ENT: + scleral icterus. No injection or drainage. Pupils equal, reactive NECK: Supple, trachea midline. No JVD. CARDIOVASCULAR:RRR nl S1, S2 RESPIRATORY: B/L equal air entry. No wheezes GASTROINTESTINAL: Abdomen distended, no tenderness to palpation. bowel sounds present. Cholecystostomy tube is in place . No flank hematoma. NEURO EXAM: Awake alert. No focal deficits A/P Assessment and Plan ASSESSMENT/PLAN: NEURO: Encephalopathy Monitor neuro status, avoid sedatives -Lortab as needed for pain -10/31 CT of the head- negative -10/31MRI minimal periventricular ischemic white matter change no acute abnormality RESP: Acute respiratory failure COPD exacerbation, Left lower lobe pneumonia, resolved Extubated yesterday tolerating well Bronchodilators Patient was intubated on 10/31/2017. Extubated 11/07/17. Reintubated 11/25 for ERCP, extubated again 11/26 -L pigtail chest tube placed with initially 600 mL of serosanguineous output. Respiratory status improved. pleural fluid culture negative,pathology pending. Chest tube removed 11/17 -U/s R pleural effusion on 11/15 - not amenable to drainage. Continue Symbicort 160/4.52 puffs inhaled every 12 hours Solumedrol [address] Johnson following CVS: Hemorrhagic shock, resolved. Secondary to R retroperitoneal hematoma Lactic acidemia- resolved Acute on chronic left limb ischemia, improved Paroxysmal atrial fibrillation HTN -CTA showed severe aorto-iliac occlusive disease with left iliac thrombosis. Dr. Lopez evaluated, may need ax-fem bypass at some point but not during this hospitalization. -No longer a candidate for anticoagulation, ASA/Plavix recommended when patient stabilized. Now off antiplatelets both due to large RP bleed -2D echo: EF 50%, no significant valvular lesions. Monitor HR and BP keep MAP>65mmHg -Continue Cardizem 240 mg p.o. daily, Hydralazine 50mg Q8, Lopressor 50mg Q12 GI Acute hepatic dysfunction Hyperbilirubinemia Transaminitis Acute Choledocholithiasis R retroperitoneal hematoma Possible colonic ileus s/p ERCP 11/25: Lots of food/liquid in the stomach. Gastritis, CBD dilated with multiple filling defects. 8.5 x 9cm stent placed in the CBD under fluoroscopy -Monitor LFT's Repeat CT abd/pelvis 11/21: The retroperitoneal hematoma on the right is smaller from the prior study. Drainage catheter within the right upper quadrant in place , No biliary dilatation. Nonobstructing left renal stone. Colonic diverticulosis - gallbladder ultrasound showed multiple gallstones -Retroperitoneal hematoma on 11/11 while on heparin drip, CT with large R retroperitoneal hematoma. Manage medically, repeat CT abd/pelvis 11/21: interval decrease in size of hematoma. - Gen Surgery following. -CT abdomen/pelvis 11/01: c/w choledocholithiasis - Perc cholecystostomy tube placed 11/01 by IR- Monitor drainage -Eventual cholecystectomy when stabilized. Dr. Martins has seen. -KUB showed colonic distention probable colonic ileus. Reconsult GI may need colonoscopy and decompression -Continue NG tube, keep n.p.o. except meds FEN/RENAL Acute kidney injury- resolved Monitor renal function, I/O's, electrolytes replacement as needed ID E COLI bacteremia/severe sepsis, resolved Enterococcus in the urine: possible colonization vs. UTI. Acute Choledocholithiasis/ Cholangitis Biliary fluid gram-negative rods Cholecystostomy placed 11/01. Completed abx course per ID: Unasyn discontinued 11/13. Monitor for signs of infections ( Fever, WBC) HEME: Acute blood loss anemia overlying anemia of chronic disease acute thrombocytopenia: Initially consumptive secondary to sepsis earlier during admission then consumptive secondary to acute blood loss. - HIT negative. CHARLEEN negative 10/30. Heparin on hold since 11/11. Monitor CBC 3 units PRBC 11/11. 1 unit 11/12. 1 unit PRBCs ordered for hemoglobin 6.9 on 11/14. 1 unit PRBC 11/16 DVT GI prophylaxis -Vickey's and SCDs -Heparin infusion on hold due to bleeding/thrombocytopenia. ACCESS: . PIV Palliative care following. ALT Code PT/OT Level 3 Anil Yip MD Nov 27, 2017 09:54
--- NOTE | 2017-11-27 10:40 | HHI.GIFU ---
Subjective Remarks Pt currently with NG to suction Reports nausea and vomiting yesterday Denies any complaints at this time Abdomen distended, pt denies any abdominal pain He can not recall when his last BM was, one documented in chart (Annika Tenorio) Objective Vitals I&O Vital Signs Date Time Temp Pulse Resp B/P (MAP) Pulse Ox O2 Delivery O2 Flow Rate FiO2 11/27/17 10:00 99 11/27/17 08:29 93 Nasal Cannula 4.00 11/27/17 08:00 100 11/27/17 08:00 97.8 100 16 117/66 (83) 95 11/27/17 06:00 104 11/27/17 04:17 16 11/27/17 04:00 98.7 103 18 115/73 (87) 93 11/27/17 04:00 104 11/27/17 02:00 100 11/27/17 00:00 98.0 90 16 121/63 (82) 94 11/27/17 00:00 87 11/26/17 22:00 85 11/26/17 20:34 94 Nasal Cannula 4.00 11/26/17 20:00 98.8 89 15 146/71 (96) 92 11/26/17 20:00 86 11/26/17 19:00 92 Nasal Cannula 4.00 11/26/17 18:00 90 11/26/17 16:29 92 Nasal Cannula 4 11/26/17 16:00 85 11/26/17 16:00 97.8 85 14 123/65 (84) 93 11/26/17 14:00 85 11/26/17 12:00 98.0 79 11 119/69 (86) 94 11/26/17 12:00 40 11/26/17 12:00 79 I/O 11/26/17 11/26/17 11/26/17 11/27/17 11/27/17 11/27/17 07:00 15:00 23:00 07:00 15:00 23:00 Intake Total 0 ml 0 ml 120 ml Output Total 380 ml 1315 ml 760 ml Balance -380 ml -1315 ml -640 ml Intake Oral 0 ml 0 ml 120 ml Output Urine Total 350 ml 300 ml 300 ml Gastric Drainage Total 1000 ml 400 ml Drainage Total 30 ml 15 ml 60 ml # Bowel Movements 0 1 0 Laboratory Laboratory Tests Test 11/26/17 12:05 11/27/17 04:44 Blood Gas Puncture Site RT RADIAL Blood Gas Patient Temperature 98.6 Blood Gas HCO3 29 Blood Gas Base Excess 4.2 Blood Gas Oxygen Saturation 94 Arterial Blood pH 7.39 Arterial Blood Partial Pressure CO2 49 Arterial Blood Partial Pressure O2 102 Arterial Blood Oxygen Content 15.0 Arterial Blood Carboxyhemoglobin 1.4 Arterial Blood Methemoglobin 1.5 Blood Gas Hemoglobin 11.2 Oxygen Delivery Device VENTILATOR Blood Gas Ventilator Setting CPAP 5/10PS Blood Gas Inspired Oxygen 40 White Blood Count 5.0 Red Blood Count 3.61 Hemoglobin 11.1 Hematocrit 33.8 Mean Corpuscular Volume 93.6 Mean Corpuscular Hemoglobin 30.7 Mean Corpuscular Hemoglobin Concent 32.9 Red Cell Distribution Width 18.3 Platelet Count 66 Mean Platelet Volume 11.5 Neutrophils (%) (Auto) 88.4 Lymphocytes (%) (Auto) 9.2 Monocytes (%) (Auto) 2.0 Eosinophils (%) (Auto) 0.1 Basophils (%) (Auto) 0.3 Neutrophils # (Auto) 4.4 Lymphocytes # (Auto) 0.5 Monocytes # (Auto) 0.1 Eosinophils # (Auto) 0.0 Basophils # (Auto) 0.0 CBC Comment AUTO DIFF Differential Total Cells Counted 100 Neutrophils % (Manual) 57 Band Neutrophils % 37 Lymphocytes % 5 Neutrophils # (Manual) 4.8 Myelocytes 1 Differential Comment FINAL DIFF MANUAL Dohle Bodies PRESENT Platelet Estimate LOW Platelet Morphology Comment NORMAL Stomatocytes 1+ Blood Urea Nitrogen 61 Creatinine 1.13 Random Glucose 87 Calcium Level 7.8 Phosphorus Level 3.4 Magnesium Level 2.7 Sodium Level 146 Potassium Level 4.3 Chloride Level 110 Carbon Dioxide Level 25.1 Anion Gap 11 Estimat Glomerular Filtration Rate 65 Date/Time Source Procedure Growth Status 10/30/17 20:38 Blood Peripheral Aerobic Blood Culture - Final NO GROWTH IN 5 DAYS Complete 10/30/17 20:38 Blood Peripheral Anaerobic Blood Culture - Final NO GROWTH IN 5 DAYS Complete 11/13/17 12:00 Fluid Pleural Fluid Gram Stain - Final Complete 11/13/17 12:00 Fluid Pleural Fluid Body Fluid Culture - Final NO GROWTH IN 72 HRS.--AEROBICALLY OR ... Complete 11/04/17 05:08 Stool Stool Stool Occult Blood (NUBIA) - Final HEMOCCULT POSITIVE Complete 11/26/17 22:00 Gastric Gastric Occult Blood - Final GASTROCCULT NEGATIVE Complete 10/31/17 10:40 Sputum Endotracheal Gram Stain - Final Complete 10/31/17 10:40 Sputum Endotracheal Sputum Culture - Final HEAVY GROWTH NORMAL RESPIRATORY TERRELL Complete 10/29/17 00:00 Urine Catheterized Urine Urine Culture - Final Enterococcus Faecalis Complete Imaging Last Impressions Abdomen X-Ray 11/26/17 0000 Signed Impressions: CONCLUSION: 1. NGT coiled in the fundus of the stomach. 2. Large amount of stool throughout the visualized portions of the colon which appear dilated. Findings likely reflect colonic ileus although differential co nsiderations include distal partial chronic obstruction. GI Procedure 11/25/17 0000 Signed Impressions: CONCLUSION: Multiple filling defects with a biliary stent left in place. Chest X-Ray 11/25/17 0000 Signed Impressions: CONCLUSION: ET tube in the proximal right mainstem bronchus. The ET tube should be pulled b ack 4 to 5 cm. Bibasilar areas of consolidation or atelectasis being worse on the left with so me silhouetting of the left hemidiaphragm. This information was relayed to Radha, the patient's nurse by telephone. Abdomen/Pelvis CT 11/21/17 0000 Signed Impressions: The retroperitoneal hematoma on the right is smaller from the prior examination . It previously measured 21 x 11 x 12 cm and now measures 21 x 8 x 11 cm. No ac lito hemorrhage appreciated. A drainage catheter is seen within the gallbladder fossa and the gallbladder is totally decompressed. This is stable in appearance from the prior study. No biliary dilatation. A 3 mm nonobstructing left renal stone noted. Bibasilar areas of consolidation affecting the left lower lobe to a greater degree than the right. This is stable. The left effusion is smaller f rom the prior exam. The right effusion is stable. Colonic diverticuli without a cute abnormality. CONCLUSION: 1. The retroperitoneal hematoma on the right is smaller from the prior study. 2. Drainage catheter within the right upper quadrant felt to relate to a doug cystostomy tube. No biliary dilatation. 3. Nonobstructing left renal stone. 4. Colonic diverticulosis. 5. Improving left effusion with unchanged right effusion. 6. Bibasilar consolidation appears stable. Chest CT 11/12/17 0000 Signed Impressions: CONCLUSION: 1. Bilateral pleural effusions left greater than right. Areas of infiltrate ve rsus atelectasis left lung base difficult to rule out a small superimposed pneu monia. 2. Dense coronary atherosclerotic disease. Chest Ultrasound 11/07/17 Signed Impressions: CONCLUSION: 1. Left-sided pleural effusion. Percutaneous Cholangiogram 11/01/17 Signed Impressions: CONCLUSION: 1. Uncomplicated percutaneous cholecystostomy as above. Renal Ultrasound 10/31/17 Signed Impressions: CONCLUSION: 1. No hydronephrosis. 2. Increased cortical echogenicity consistent with medical renal disease. Head Magnetic Resonance Angiography 10/31/17 Signed Impressions: CONCLUSION: 1. Unremarkable MRA of the brain. Head CT 10/31/17 Signed Impressions: CONCLUSION: 1. Negative CT Head non contrast. 2. No evidence of acute infarct, hemorrhage, mass or edema. Brain MRI 10/31/17 Signed Impressions: CONCLUSION: 1. Senescent changes with minimal periventricular ischemic white matter demyel ination. 2. No acute abnormality. Specifically, no acute infarction, mass or hemorrhage . Gall Bladder Ultrasound 10/30/17 Signed Impressions: CONCLUSION: 1. Fatty infiltration of the liver. 2. Multiple stones in the gallbladder. No biliary tract obstruction. Extremity Arterial Study 10/28/17 Signed Impressions: CONCLUSION: 1. Abnormal ABIs, left greater than right. The left DAVID is significantly dimin ished at 0.14. Aorta w/Runoff CTA 10/28/17 Signed Impressions: Service Date/Time: Saturday, October 28, 2017 21:50 - CONCLUSION: 1. Acute occlusion of the left inflow with concern for short segment occlusion involving the distal right inflow. This raises concern for an embolic event. 2. Right lower extremity shows scattered disease throughout the common femoral artery, SFA and [id number] popliteal artery with three-vessel runoff to the foot. 3. Left lower extremity with reconstitution of the common femoral artery with diseased out flow and two vessel runoff to the foot as detailed above. 4. 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 5. Hepatic steatosis. 6. Cholelithiasis. Juanjose Mckeon Jr., MD Physical Exam HEENT: Normocephalic; atraumatic CHEST : BS equal bilaterally CARDIAC: RRR ABDOMEN: Distended, firm, nontender, bowel sounds active, biliary drain with approximately 10 mL of bile colored drainage, NG to LIWS SKIN: Normal; no rash; no jaundice. WINDSCREEN FITTER: Alert and oriented x 3 (Annika Tenorio) Assessment and Plan Assessment: (1) Sepsis ICD Codes: A41.9 - Sepsis, unspecified organism Status: Acute Plan Assessment: - Choledocholithiasis with elevated LFTs, trending down CT abdomen WO IV contrast (11/01) --> Gallstones, appears to be areas of increased density within the common bile duct concerning for choledocholithiasis. S/P IR for percutaneous cholecystostomy drain on 11/01 - Culture with heavy growth of gram positive and gram negative enteric terrell, no further work up Pt on Unasyn - Elevated LFTs- likely secondary to obstruction from above but liver work up pending Iron-145 TIBC-214 %sat-67.7 Ferritin-248 AFP-6.9 Hepatitis panel negative [place], AMA, ASMA negative. AAT-215 Ceruloplasmin-24 - Anemia, normocytic- with Hemoccult positive stools- no obvious GIB - Cold left leg- Heparin gtt - now discontinued Pt with prolonged ICU admission, our service followed him for a long time, however he was unstable for GI procedures for a long time. He was considered stable enough for ERCP on 11/25- however, he was intubated for procedure. ERCP --> Normal appearing ampulla. Lots of food/liquid in the stomach. Gastritis , fluid was suctioned as well as possible. Ampulla cannulated. PD normal. CBD dilated with multiple filling defects. Because of patients critical condition no attempt made to remove stones. 8.5 x 9 cm stent placed in the CBD under fluoroscopy. (11/27) Pt extubated yesterday. Abdomen distended and firm. Reports of nausea and vomiting last night. KUB revealed large amount of stool throughout the visualized portions of the colon which appear dilated. Findings likely reflect colonic ileus although differential considerations include distal partial chronic obstruction. Pt can not recall when his last BM was, however there is one documented in the chart. Plan Soap suds enema x 2 Mag Citrate through NG Repeat KUB NPO except medication Further recommendations based on clinical course and results of above Pt has been seen and examined by myself and Dr. Kirk and this note is written on her behalf (Annika Tenorio) Physician Comments seen, examined agree with above Glycerine supp Lactulose (Debbie Kirk MD) Problem Qualifiers (1) Sepsis: Qualified Codes: A41.9 - Sepsis, unspecified organism Annika Tenorio Nov 27, 2017 10:40 Debbie Kirk MD Nov 27, 2017 18:09
[2017-11-27] MEDS: SODIUM CHLOR 0.45% 1000 ML INJ 1,000 ML IV SCH ×2 (11:26→22:09)
[2017-11-27] MEDS ORDERED: MAGNESIUM CITRATE SOLN 300 ML BTL PO ONE (12:00)
[2017-11-27] MEDS: BISACODYL 10 MG SUPP RECTAL PRN (18:11)
[2017-11-27] MEDS ORDERED: GLYCERIN ADULT 2 GM SUPP RECTAL PRN (18:15)
[2017-11-27] MEDS: ACETAMINOPHEN/HYDROcodone 325 MG/7.5 MG TAB PO PRN (20:48)
--- NOTE | 2017-11-27 20:54 | HHI.PR ---
Subjective Remarks 67 YOWM with COPD,Sepsis, ischemia of leg mild sob cough, occ sp No Fever Had ERCP On high flow 02 70% Has abd discomfort NGT to Suction Objective Vital Signs Vital Signs Date Time Temp Pulse Resp B/P (MAP) Pulse Ox O2 Delivery O2 Flow Rate FiO2 11/27/17 19:00 92 Nasal Cannula 4.00 11/27/17 18:00 94 11/27/17 16:00 97.9 91 20 110/59 (76) 91 11/27/17 16:00 91 11/27/17 14:00 84 11/27/17 12:00 97.9 85 13 114/64 (81) 95 11/27/17 12:00 85 11/27/17 10:00 99 11/27/17 08:29 93 Nasal Cannula 4.00 11/27/17 08:00 100 11/27/17 08:00 97.8 100 16 117/66 (83) 95 11/27/17 07:00 97 Nasal Cannula 4.00 11/27/17 06:00 104 11/27/17 04:17 16 11/27/17 04:00 98.7 103 18 115/73 (87) 93 11/27/17 04:00 104 11/27/17 02:00 100 11/27/17 00:00 98.0 90 16 121/63 (82) 94 11/27/17 00:00 87 11/26/17 22:00 85 I/O 11/26/17 11/26/17 11/26/17 11/27/17 11/27/17 11/27/17 07:00 15:00 23:00 07:00 15:00 23:00 Intake Total 0 ml 0 ml 120 ml Output Total 380 ml 1315 ml 760 ml 900 ml Balance -380 ml -1315 ml -640 ml -900 ml Intake Oral 0 ml 0 ml 120 ml Output Urine Total 350 ml 300 ml 300 ml 450 ml Gastric Drainage Total 1000 ml 400 ml 450 ml Drainage Total 30 ml 15 ml 60 ml # Bowel Movements 0 1 0 1 Result Diagram: 11/27/1744311/27/17443 Objective Remarks GENERAL: WBWN WM, mild abd discomfort SKIN: Warm and dry. HEAD: Normocephalic. EYES: No scleral icterus. No injection or drainage. NECK: Supple, trachea midline. No JVD or lymphadenopathy. CARDIOVASCULAR: Regular rate and rhythm without murmurs, gallops, or rubs. RESPIRATORY: Breath sounds equal bilaterally. No accessory muscle use. GASTROINTESTINAL: Abdomen soft, non-tender, nondistended. MUSCULOSKELETAL: No cyanosis, or edema. Cold left leg BACK: Nontender without obvious deformity. No CVA tenderness. A/P Assessment and Plan IMPRESSION: 1. Sepsis. 2. Chronic obstructive pulmonary disease, mild exacerbation. 3. Left basilar infiltrate. 4. Urinary tract infection 5. Encephalopathy. 6. Cold left leg.-resolved 7. Thrombocytopenia. 8. VDRF--reintubated 11/25 9. Severe anemia, retroperitoneal bleed PLAN: NGT , intermittent suction Cont Abx per ID Monitor renal functions DW RN at BS Monitor H/H High flow 02 Dennis Johnson MD Nov 27, 2017 20:54
[2017-11-28] VITALS (14 sets, daily range): BP systolic 90–161; BP diastolic 53–75; PULSE 77–115; RESP 15–26; TEMP 98.1–99.8; O2SAT 86–94
[2017-11-28] MEDS: CHLORHEXIDINE GLUCONATE 2 % 1 PACK (2 CLOTHS) TOP SCH (04:00)
[2017-11-28] MEDS: RESP: ALBUTEROL 2.5 MG/IPRATROPIUM 0.5 MG NEB (SCH) NEB ×4 (04:27→19:42)
[2017-11-28 04:38] LABS: AUTOMATED NEUTROPHIL # 4.1 TH/MM3 (1.8-7.7); BASOPHIL % 0.2 % (0.0-2.0); EOSINOPHIL % 0.2 % (0.0-4.0); HEMATOCRIT 29.9 % (39.0-51.0); LYMPH % 4.7 % (9.0-44.0); LYMPHOCYTE # 0.2 TH/MM3 (1.0-4.8); MEAN CELL VOLUME 93.6 FL (80.0-100.0); MEAN CORPUSCULAR HEMOGLOBIN 31.3 PG (27.0-34.0); MEAN CORPUSCULAR HGB CONC 33.4 % (32.0-36.0); MEAN PLATELET VOLUME 11.5 FL (7.0-11.0); MONO % 1.3 % (0.0-8.0); MONOCYTE # 0.1 TH/MM3 (0-0.9); NEUT % 93.6 % (16.0-70.0); PLATELET COUNT 64 TH/MM3 (150-450); RED BLOOD COUNT 3.19 MIL/MM3 (4.50-5.90); RED CELL DISTRIBUTION WIDTH 18.7 % (11.6-17.2); WHITE BLOOD COUNT 4.4 TH/MM3 (4.0-11.0)
--- NOTE | 2017-11-28 04:55 | RADRPT ---
EXAM DATE: 11/28/2017 4:30 AM EDT AGE/SEX: 67 years / Male INDICATIONS: Shortness of breath, possible pulmonary disease. CLINICAL DATA: This is the patient's subsequent encounter. Patient reports that signs and symptoms h ave been present for 2 weeks and indicates a pain score of Nonresponsive. MEDICAL/SURGICAL HISTORY: Chronic obstructive pulmonary disease. None. [place] [facility] [place] . FINDINGS: Single view the chest some joints the NG tube in good position. There is a wedge-shaped infiltrate in the left upper lobe. Minimal consolidation left lung base. Tortuous aorta. Right lung is clear. CONCLUSION: Wedge-shaped infiltrate in the left upper lobe Electronically signed by: Chad Panda MD 11/28/2017 4:54 AM EDT
--- NOTE | 2017-11-28 04:57 | RADRPT ---
EXAM DATE: 11/28/2017 4:23 AM EDT AGE/SEX: 67 years / Male INDICATIONS: Abdominal pain. CLINICAL DATA: This is the patient's subsequent encounter. Patient reports that signs and symptoms h ave been present for 2 weeks and indicates a pain score of Nonresponsive. MEDICAL/SURGICAL HISTORY: Chronic obstructive pulmonary disease. None. COMPARISON: [facility] [place] [facility] [place], 11/26/2017. . FINDINGS: The abdominal bowel gas pattern is normal with some distended air-filled colon. Catheter overlies ri ght upper quadrant. No abnormal masses, calcifications, or organomegaly is seen. The osseous structu res are unremarkable. CONCLUSION: Stable bowel gas pattern with significant air in the sigmoid colon. Catheter is coiled overlying the right upper quadrant unchanged. NG tube within the stomach Electronically signed by: Chad Panda MD 11/28/2017 4:55 AM EDT
[2017-11-28 05:02] LABS: ALBUMIN 1.9 GM/DL (3.4-5.0); ALKALINE PHOSPHATASE 101 U/L (45-117); ALT (GPT) 97 U/L (12-78); AST (GOT) 49 U/L (15-37); BLOOD UREA NITROGEN 57 MG/DL (7-18); CALCIUM 7.6 MG/DL (8.5-10.1); CHLORIDE 107 MEQ/L (98-107); CREATININE 1.08 MG/DL (0.60-1.30); GLOMERULAR FILTRATION RATE 68 ML/MIN (>89); GLUCOSE,RANDOM 67 MG/DL (74-106); MAGNESIUM 3.1 MG/DL (1.5-2.5); SODIUM (NA) 145 MEQ/L (136-145); TOTAL BILIRUBIN ADULT 6.3 MG/DL (0.2-1.0); TOTAL PROTEIN 4.9 GM/DL (6.4-8.2)
[2017-11-28] MEDS: INSULIN NovoLIN REGULAR SUPPLEMENTAL SCALE SQ SCH ×4 (05:49→23:04)
[2017-11-28] MEDS: hydrALAZINE HCL 50 MG TAB PO SCH ×3 (05:49→21:02)
[2017-11-28] MEDS: DEXTROSE 50% IN WATER 50 ML VIAL(D50) IV PUSH PRN (05:49)
[2017-11-28] MEDS: CHLORHEXIDINE 0.12% (ORAL KIT) 15 ML CUP MT SCH ×2 (08:00→19:58)
[2017-11-28 08:28] LABS: BANDS 19 % (0-6); CORRECTED NUCLEATED RBC 3 /100 WBC (0-0); LYMPHOCYTES 1 % (9-44); MONOCYTES 2 % (0-8); NEUTROPHIL # MANUAL DIFF 4.3 TH/MM3 (1.8-7.7); NUCLEATED RED BLOOD CELL 3 (0-0); POLYS (SEG NEUTROPHILS) 78 % (16-70)
[2017-11-28 08:30] LABS: TOXIC GRANULATION 1+ (NORMAL)
[2017-11-28] MEDS ORDERED: LACTULOSE SYRUP 20 GM/30 ML CUP PO SCH (09:00)
[2017-11-28] MEDS: NYSTATIN SUSP 500,000 U/5 ML CUP SWISH-SWAL SCH ×4 (09:00→19:58)
[2017-11-28] MEDS: methylPREDNISolone SOD SUCC 40 MG/1 ML VIAL IV PUSH SCH (09:25)
[2017-11-28] MEDS: DILTIAZEM-CD 240 MG CAP ER PO SCH (09:25)
[2017-11-28] MEDS: FAMOTIDINE 20 MG TAB PO SCH ×2 (09:25→19:58)
[2017-11-28] MEDS: SODIUM CHLORIDE 0.9% FLUSH 10 ML FLUSH IV FLUSH SCH ×2 (09:26→19:58)
[2017-11-28] MEDS: BUDESONIDE-FORMOTEROL 160/4.5 MCG INHALER INH SCH ×2 (09:26→19:58)
[2017-11-28] MEDS: METOPROLOL TARTRATE 50 MG TAB PO SCH ×2 (09:26→19:58)
[2017-11-28] MEDS: SENNOSIDES 8.6 MG TAB PO SCH ×2 (09:37→21:02)
[2017-11-28] MEDS: SODIUM CHLOR 0.45% 1000 ML INJ 1,000 ML IV SCH ×2 (09:58→22:19)
--- NOTE | 2017-11-28 10:35 | HHI.CCPN ---
Subjective Remarks/Hospital Course 67-year-old male presents to the emergency department via EMS for evaluation of shortness of breath and pain and numbness to the left leg. Patient believes that he is shortness of breath is related to the pain in his leg. He cannot feel his leg from his groin down. He denies any history of the same. He does report history of COPD. He denies any known fevers or chills. He denies chest pain. Patient received 1 L normal saline bolus via EMS. Patient denies any history of bleeding or blood clots. No recent surgery or travel. No hemoptysis. No history of DVT/PE. He denies leg edema. Patient states the pain is 10/10 to the left leg. No exacerbating or alleviating factors. Moderate severity. 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 The right inflow is heavily diseased as well. 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 SUBJ 10/29: Remains critically ill, encephalopathy. 4 out of 4 bottles positive for GNR. I will change Rocephin to Zosyn renally dosed to cover for Pseudomonas also. Continue azithromycin. Creatinine still elevated but slightly improved. WBC count slightly increased 17.2 now with 24% bands. Source of GNR sepsis could be either UTI or pneumonia. Will consult ID as well. Remains on IV heparin for acute left limb ischemia 10/30: platelets falling >50% again today. Cr still rising, but could be ATN/ contrast nephropathy. blood cultures growing e. coli by PCR, full speciation to follow. urine culture pending. discussed case with Dr. Lopez, will stop heparin , start argatroban and send HIT/CHARLEEN. denies complaints for me, but does have objective tenderness on palpation, RUQ. 10/31: Emergently intubated today a.m. by Dr. Puckett for worsening mental status, encephalopathy and worsening respiratory failure. Prior to intubation Dr. Puckett ' exam revealed right upper quadrant tenderness. Ultrasound of the gallbladder yesterday showed gallstones. Overnight Argatroban was supratherapeutic and was held, platelet count also dropped to 30,000, HIT screen is pending. Postintubation bilateral pupils are reactive but unequal. Will repeat CT of the head, CT abdomen pelvis. BUN 49/Creat 2.7, leukocytosis persisting 11/01: no improvements. ct abd/pelvis with evidence of possible choledocholithiasis. perc doug tube planned for this AM. on esmolol infusion for afib RVR. fio2 increased to 70%. 11/02: Sodium bicarbonate infusion continued per nephrology in the setting of rhabdomyolysis serial creatinine kinase pending. Cholecystostomy drain placement 100 cc overnight. Continued thrombocytopenia, CBC, serotonin release assay pending. Plan for reinitiation of heparin awaiting GI consultation for possible invasive procedures prior to restarting heparin. Patient sinus rhythm with occasional PAC's. 11/03: No acute events overnight. Sodium bicarbonate infusion discontinued this a.m. had any improved this a.m.. Chest x-ray showed worsening consolidation, FiO2 requirements were increased to 65% during the night. CPAP trials on hold currently. Biliary drainage from cholecystostomy tube revealing gram-negative rods. The patient continues on antibiotics. Bilateral dorsalis pedis pulses monophasic signals by Doppler. Heparin infusion reinitiated. 11/04: Sodium bicarbonate infusion discontinued at 7 AM yesterday. Chest x-ray worsening consolidation versus pleural effusions. FiO2 slightly decreased to 60 %, ABG improving. Pending quantification via ultrasound of pleural fluid in am. Lasix 40mg x1 additional dose provided today . PPN discontinued discussed with Dr. Colon tube feeds initiated at [facility]. Dietary consult ordered. 11/05: Afebrile. Patient tolerating tube feeds advanced to goal rate of 55 cc/ hr. chest x-ray with slight improvement FiO2 decreased to 55% ABG pending. Initiation of CPAP trial to be attempted today. 11/06: Late entry note. Patient seen at 628am. Patient was started on CPAP and continues on CPAP greater than 10 hours. Patient following commands, currently on Precedex infusion. 11/07: Patient remained on CPAP trials for approximately 12 hours yesterday and discontinued because of agitation. CPAP trials reinitiated this a.m. Patient complaint of sore throat Lortab ordered. Patient continues on Precedex for ventilator weaning process. Chest x-ray still shows pulmonary edema, additional dose Lasix 401 dose given this a.m.. When infusion continued, monophasic Doppler signals bilateral dorsalis pedal pulses noted. 11/08: Afebrile . Patient successfully extubated yesterday. Remains on O2 at 4 L nasal cannula O2 saturation 94-95%. Patient continues on heparin infusion, she was noted to have 9 BMs last evening plan for serial H&H's concern for possible stool with occult blood. Repeat stool for occult blood. Plan for possible bedside thoracentesis ,if respiratory requirements increase, currently on O2 4 L via nasal cannula in no apparent distress. 11/11 Late entry, notified of re-consult at 17:[address] Johnson, saw patient and immediately placed L IJ CVL because patient had ripped out an IV and had insufficient peripheral IV access given clinical condition. RN states patient had Hgb 7.5 this morning. Trend was unusual with Hb 8.3--> 12.5 (without transfusion)-->7.5 and lab recommended repeat. Repeat was drawn and was 4.2. Meanwhile, while awaiting re-draw patient became hypotensive, MAP down in the 40s, and was given albumin 25 gram IV. Now he has received 1 unit PRBC and BP improved to 120s/60s. Getting 2 additional units of PRBC stat. Nurse states heparin has been off since 12:30. Sending stat coags/fibrinogen. Patient denies nausea or vomiting. He has some right-sided abdominal pain. There is dark brown drainage from cholecystostomy tube. He has not had a bowel movement in 48 hours. No obvious evidence of GI bleeding. CT abdomen and pelvis has been ordered as "urgent", now giving additional PRBC and then will obtain stat. Gastroenterology has been following and I have notified them of the anemia, though this does not appear to be GI source at this time. 11/12 CT last night showed large retroperitoneal hematoma. Transfused total of 3 units PRBC yest evening. Hgb now 8.3. Coags/fibrinogen in acceptable range this morning, heparin drip off. Patient states much less abdominal pain today. He is alert and oriented now. Coughing, O2 requirement up to 6 L NC, afebrile. 11/13 Had some hemoptysis yesterday. CT with bilateral pleural effusions/ LLL atelectasis vs infiltrate. Now on 8 L SM, tachypneic with more labored breathing today. Edematous, will diurese. He is alert and capacitated currently and agrees to L pleural drainage. Transfused 1 unit PRBC yesterday for Hgb 7.4. He still has some Right sided abdominal pain 11/14: Resting in bed on simple facemask. Hemoglobin 6.9 this morning. Patient denies any worsening shortness of breath or chest pain. 1 unit PRBCs being transfused. Left-sided pigtail catheter placed 11/13 drain 650 cc 11/15 Remains on simple mask, breathing a little labored. L pigtail catheter output is serous, 270 last 24 hours. Planned to tap R pleural effusion but when performed u/s the fluid had decreased significantly and did not appear amenable to drainage; continue diuresis. Labs are pending, nurse is about to draw them. Afebrile 11/16 Diuresing, creatinine stable. On NC. Afebrile. L Chest tube output 220. Hgb 7.6 from 8.8. Transfusing 1 unit PRBC. Noted lipase 827. Patient denies n/v /abdominal tenderness. He says he is feeling "much better" and denies abd pain. 11/17 Chest tube removed yesterday without complication. Labored breathing when he got OOB overnight. He is tired of wearing simple mask so he wants to try HFNC. Depressed today, is worried his ERCP will get canceled. Wants to get out of the hospital. Case management working on transfer to [facility] when cleared following ERCP. 11/18 Patient is on high flow oxygen with 70% FIO2. For ERCP today. 11/19 No events overnight. ERCP wasn't done yesterday as patient is on high flow oxygen. Remains on 25L with 70% FIO2. Afebrile. 11/20: no acute events. tolerating a diet. on high flow NC at 70% fio2. not dyspneic. Subjective: 11/21: repeat CT abd/pelvis with interval decrease in size of hematoma. no other changes. remains on HFNC despite diuresis. 11/22 No events overnight. Down to 3L oxygen with good sats. Afebrile. 11/23: remains on 3L o2 by NC. denies complaints. plan for ERCP saturday. 11/24 Patient went for ERCP and kept intubated post procedure CCM consulted for CC management. On no sedation. 11/25 No events overnight. Tolerating CPAP PS 10, PEEP:5. Awake and alert. 11/27: Extubated yesterday tolerating well. Abdomen remains distended. KUB yesterday showed possible colonic ileus, fecal impaction. GI re consult requested 11/28: Breathing comfortably abdominal distention seems to have improved clinically. Having small bowel movements. KUB shows distended sigmoid colon. GI continues to follow Objective Vital Signs Date Time Temp Pulse Resp B/P (MAP) Pulse Ox O2 Delivery O2 Flow Rate FiO2 11/28/17 10:07 93 Nasal Cannula 4.00 11/28/17 06:00 111 11/28/17 04:00 99.7 26 144/71 (95) 11/26/17 12:00 40 Intake and Output 11/28/17 11/28/17 11/29/17 08:00 16:00 00:00 Output Total 1270 ml Balance -1270 ml Result Diagram: 11/28/17 0420 11/28/17 0420 Other Results Microbiology Date/Time Source Procedure Growth Status 11/26/17 22:00 Gastric Gastric Occult Blood - Final GASTROCCULT NEGATIVE Complete Imaging Last Impressions GI Procedure 11/25/17 0000 Signed Impressions: CONCLUSION: Multiple filling defects with a biliary stent left in place. Chest X-Ray 11/25/17 0000 Signed Impressions: CONCLUSION: ET tube in the proximal right mainstem bronchus. The ET tube should be pulled b ack 4 to 5 cm. Bibasilar areas of consolidation or atelectasis being worse on the left with so me silhouetting of the left hemidiaphragm. This information was relayed to Radha, the patient's nurse by telephone. Abdomen/Pelvis CT 11/21/17 0000 Signed Impressions: The retroperitoneal hematoma on the right is smaller from the prior examination . It previously measured 21 x 11 x 12 cm and now measures 21 x 8 x 11 cm. No ac chitina hemorrhage appreciated. A drainage catheter is seen within the gallbladder fossa and the gallbladder is totally decompressed. This is stable in appearance from the prior study. No biliary dilatation. A 3 mm nonobstructing left renal stone noted. Bibasilar areas of consolidation affecting the left lower lobe to a greater degree than the right. This is stable. The left effusion is smaller f rom the prior exam. The right effusion is stable. Colonic diverticuli without a cute abnormality. CONCLUSION: 1. The retroperitoneal hematoma on the right is smaller from the prior study. 2. Drainage catheter within the right upper quadrant felt to relate to a doug cystostomy tube. No biliary dilatation. 3. Nonobstructing left renal stone. 4. Colonic diverticulosis. 5. Improving left effusion with unchanged right effusion. 6. Bibasilar consolidation appears stable. Chest CT 11/12/17 Signed Impressions: CONCLUSION: 1. Bilateral pleural effusions left greater than right. Areas of infiltrate ve rsus atelectasis left lung base difficult to rule out a small superimposed pneu monia. 2. Dense coronary atherosclerotic disease. Chest Ultrasound 11/07/17 Signed Impressions: CONCLUSION: 1. Left-sided pleural effusion. Percutaneous Cholangiogram 11/01/17 Signed Impressions: CONCLUSION: 1. Uncomplicated percutaneous cholecystostomy as above. Renal Ultrasound 10/31/17 Signed Impressions: CONCLUSION: 1. No hydronephrosis. 2. Increased cortical echogenicity consistent with medical renal disease. Head Magnetic Resonance Angiography 10/31/17 Signed Impressions: CONCLUSION: 1. Unremarkable MRA of the brain. Head CT 10/31/17 Signed Impressions: CONCLUSION: 1. Negative CT Head non contrast. 2. No evidence of acute infarct, hemorrhage, mass or edema. Brain MRI 10/31/17 Signed Impressions: CONCLUSION: 1. Senescent changes with minimal periventricular ischemic white matter demyel ination. 2. No acute abnormality. Specifically, no acute infarction, mass or hemorrhage . Gall Bladder Ultrasound 10/30/17 Signed Impressions: CONCLUSION: 1. Fatty infiltration of the liver. 2. Multiple stones in the gallbladder. No biliary tract obstruction. Extremity Arterial Study 10/28/17 Signed Impressions: CONCLUSION: 1. Abnormal ABIs, left greater than right. The left DAVID is significantly dimin ished at 0.14. Aorta w/Runoff CTA 10/28/17 Signed Impressions: Service Date/Time: Saturday, October 28, 2017 21:50 - CONCLUSION: 1. Acute occlusion of the left inflow with concern for short segment occlusion involving the distal right inflow. This raises concern for an embolic event. 2. Right lower extremity shows scattered disease throughout the common femoral artery, SFA and [id number] popliteal artery with three-vessel runoff to the foot. 3. Left lower extremity with reconstitution of the common femoral artery with diseased out flow and two vessel runoff to the foot as detailed above. 4. 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 5. Hepatic steatosis. 6. Cholelithiasis. Juanjose Mckeon Jr., MD Objective Remarks GENERAL: middle-aged male, lying in bed NGT in place SKIN: Warm and dry. HEAD: Normocephalic. ENT: + scleral icterus. No injection or drainage. Pupils equal, reactive NECK: Supple, trachea midline. No JVD. CARDIOVASCULAR:RRR nl S1, S2 RESPIRATORY: B/L equal air entry. No wheezes GASTROINTESTINAL: Abdomen distended, but improved from yesterday. Cholecystostomy tube is in place . No flank hematoma. NEURO EXAM: Awake alert. No focal deficits. Following commands A/P Assessment and Plan ASSESSMENT/PLAN: NEURO: Encephalopathy Monitor neuro status, avoid sedatives Encephalopathy has appears to have resolved -Lortab as needed for pain -10/31 CT of the head- negative -10/31MRI minimal periventricular ischemic white matter change no acute abnormality RESP: Acute respiratory failure COPD exacerbation, Left lower lobe pneumonia, resolved Bronchodilators. Patient was intubated on 10/31/2017. Extubated 11/07/17. Reintubated 11/25 for ERCP, extubated again 11/26 tolerating well -L pigtail chest tube placed with initially 600 mL of serosanguineous output. Respiratory status improved. pleural fluid culture negative,pathology pending. Chest tube removed 11/17 -U/s R pleural effusion on 11/15 - not amenable to drainage. Continue Symbicort 160/4.52 puffs inhaled every 12 hours Solumedrol [address] Johnson following CVS: Hemorrhagic shock, resolved. Secondary to R retroperitoneal hematoma Lactic acidemia- resolved Acute on chronic left limb ischemia, improved Paroxysmal atrial fibrillation HTN -CTA showed severe aorto-iliac occlusive disease with left iliac thrombosis. Dr. Lopez evaluated, may need ax-fem bypass at some point but not during this hospitalization. -No longer a candidate for anticoagulation, ASA/Plavix recommended when patient stabilized. Now off antiplatelets both due to large RP bleed, thrombocytopenia -2D echo: EF 50%, no significant valvular lesions. Monitor HR and BP keep MAP>65mmHg -Continue Cardizem 240 mg p.o. daily, Hydralazine 50mg Q8, Lopressor 50mg Q12 GI Acute hepatic dysfunction Hyperbilirubinemia Transaminitis Acute Choledocholithiasis R retroperitoneal hematoma Colonic ileus s/p ERCP 11/25: Lots of food/liquid in the stomach. Gastritis, CBD dilated with multiple filling defects. 8.5 x 9cm stent placed in the CBD under fluoroscopy -Monitor LFT's Repeat CT abd/pelvis 11/21: The retroperitoneal hematoma on the right is smaller from the prior study. Drainage catheter within the right upper quadrant in place , No biliary dilatation. Nonobstructing left renal stone. Colonic diverticulosis - gallbladder ultrasound showed multiple gallstones -Retroperitoneal hematoma on 11/11 while on heparin drip, CT with large R retroperitoneal hematoma. Manage medically, repeat CT abd/pelvis 11/21: interval decrease in size of hematoma. - Gen Surgery following. -CT abdomen/pelvis 11/01: c/w choledocholithiasis - Perc cholecystostomy tube placed 11/01 by IR- Monitor drainage -Eventual cholecystectomy when stabilized. Dr. Martins has seen. -KUB showed colonic distention probable colonic ileus. Reconsult GI may need colonoscopy and decompression -Continue NG tube, keep n.p.o. except meds. Further recommendations per GI FEN/RENAL Acute kidney injury Monitor renal function, I/O's, electrolytes replacement as needed IV hydration with half-normal saline at 84 mL/h ID E COLI bacteremia/severe sepsis, resolved Enterococcus in the urine: possible colonization vs. UTI. Acute Choledocholithiasis/ Cholangitis Biliary fluid gram-negative rods Cholecystostomy placed 11/01. Completed abx course per ID: Unasyn discontinued 11/13. Monitor for signs of infections ( Fever, WBC) HEME: Acute blood loss anemia overlying anemia of chronic disease acute thrombocytopenia: Initially consumptive secondary to sepsis earlier during admission then consumptive secondary to acute blood loss. - HIT negative. CHARLEEN negative 10/30. Heparin on hold since 11/11. Monitor CBC 3 units PRBC 11/11. 1 unit 11/12. 1 unit PRBCs ordered for hemoglobin 6.9 on 11/14. 1 unit PRBC 11/16 DVT GI prophylaxis -Vickey's and SCDs -Heparin infusion on hold due to bleeding/thrombocytopenia. ACCESS: . PIV Palliative care following. ALT Code PT/OT Level 2 Consult [facility] to assume care in am. Anil Yip MD Nov 28, 2017 10:34
--- NOTE | 2017-11-28 13:15 | HHI.GIFU ---
Subjective Remarks No continued nausea or vomiting No BM for nurse today Abdomen remains distended but slightly less firm (Annika Tenorio [employer]) Objective Vitals I&O Vital Signs Date Time Temp Pulse Resp B/P (MAP) Pulse Ox O2 Delivery O2 Flow Rate FiO2 11/28/17 10:07 93 Nasal Cannula 4.00 11/28/17 10:00 106 11/28/17 08:00 115 11/28/17 08:00 99.8 115 22 113/60 (77) 90 11/28/17 07:00 96 Nasal Cannula 4.00 11/28/17 06:00 111 11/28/17 04:00 99.7 115 26 144/71 (95) 86 11/28/17 04:00 115 11/28/17 02:00 109 11/28/17 00:00 98.8 92 18 161/75 (103) 86 11/28/17 00:00 92 11/27/17 22:00 89 11/27/17 20:09 92 Nasal Cannula 4.00 11/27/17 20:00 93 11/27/17 20:00 98.3 93 16 131/70 (90) 91 11/27/17 19:00 92 Nasal Cannula 4.00 11/27/17 18:00 94 11/27/17 16:00 97.9 91 20 110/59 (76) 91 11/27/17 16:00 91 11/27/17 14:00 84 I/O 11/27/17 11/27/17 11/27/17 11/28/17 11/28/17 11/28/17 07:00 15:00 23:00 07:00 15:00 23:00 Intake Total 120 ml 1000 ml Output Total 760 ml 900 ml 1270 ml Balance -640 ml 100 ml -1270 ml Intake Oral 120 ml IV Total 1000 ml Output Urine Total 300 ml 450 ml 600 ml Gastric Drainage Total 400 ml 450 ml 650 ml Drainage Total 60 ml 20 ml # Bowel Movements 0 1 1 Laboratory Laboratory Tests Test 11/28/17 04:20 White Blood Count 4.4 Red Blood Count 3.19 Hemoglobin 10.0 Hematocrit 29.9 Mean Corpuscular Volume 93.6 Mean Corpuscular Hemoglobin 31.3 Mean Corpuscular Hemoglobin Concent 33.4 Red Cell Distribution Width 18.7 Platelet Count 64 Mean Platelet Volume 11.5 Neutrophils (%) (Auto) 93.6 Lymphocytes (%) (Auto) 4.7 Monocytes (%) (Auto) 1.3 Eosinophils (%) (Auto) 0.2 Basophils (%) (Auto) 0.2 Neutrophils # (Auto) 4.1 Lymphocytes # (Auto) 0.2 Monocytes # (Auto) 0.1 Eosinophils # (Auto) 0.0 Basophils # (Auto) 0.0 CBC Comment AUTO DIFF Differential Total Cells Counted 100 Neutrophils % (Manual) 78 Band Neutrophils % 19 Lymphocytes % 1 Monocytes % 2 Neutrophils # (Manual) 4.3 Nucleated Red Blood Cells 3 Differential Comment FINAL DIFF MANUAL Toxic Granulation 1+ Platelet Estimate LOW Platelet Morphology Comment ENLARGED Blood Urea Nitrogen 57 Creatinine 1.08 Random Glucose 67 Total Protein 4.9 Albumin 1.9 Calcium Level 7.6 Magnesium Level 3.1 Alkaline Phosphatase 101 Aspartate Amino Transf (AST/SGOT) 49 Alanine Aminotransferase (ALT/SGPT) 97 Total Bilirubin 6.3 Sodium Level 145 Potassium Level 4.0 Chloride Level 107 Carbon Dioxide Level 27.0 Anion Gap 11 Estimat Glomerular Filtration Rate 68 Date/Time Source Procedure Growth Status 10/30/17 20:38 Blood Peripheral Aerobic Blood Culture - Final NO GROWTH IN 5 DAYS Complete 10/30/17 20:38 Blood Peripheral Anaerobic Blood Culture - Final NO GROWTH IN 5 DAYS Complete 11/13/17 12:00 Fluid Pleural Fluid Gram Stain - Final Complete 11/13/17 12:00 Fluid Pleural Fluid Body Fluid Culture - Final NO GROWTH IN 72 HRS.--AEROBICALLY OR ... Complete 11/04/17 05:08 Stool Stool Stool Occult Blood (NUBIA) - Final HEMOCCULT POSITIVE Complete 11/26/17 22:00 Gastric Gastric Occult Blood - Final GASTROCCULT NEGATIVE Complete 10/31/17 10:40 Sputum Endotracheal Gram Stain - Final Complete 10/31/17 10:40 Sputum Endotracheal Sputum Culture - Final HEAVY GROWTH NORMAL RESPIRATORY TERRELL Complete 10/29/17 00:00 Urine Catheterized Urine Urine Culture - Final Enterococcus Faecalis Complete Imaging Last Impressions Chest X-Ray 11/28/17 0600 Signed Impressions: CONCLUSION: Wedge-shaped infiltrate in the left upper lobe Abdomen X-Ray 11/28/17 0600 Signed Impressions: CONCLUSION: Stable bowel gas pattern with significant air in the sigmoid colon. Catheter is coiled overlying the right upper quadrant unchanged. NG tube within the stomac h GI Procedure 6/18/18 0000 Signed Impressions: CONCLUSION: Multiple filling defects with a biliary stent left in place. Abdomen/Pelvis CT 11/21/17 Signed Impressions: The retroperitoneal hematoma on the right is smaller from the prior examination . It previously measured 21 x 11 x 12 cm and now measures 21 x 8 x 11 cm. No ac lito hemorrhage appreciated. A drainage catheter is seen within the gallbladder fossa and the gallbladder is totally decompressed. This is stable in appearance from the prior study. No biliary dilatation. A 3 mm nonobstructing left renal stone noted. Bibasilar areas of consolidation affecting the left lower lobe to a greater degree than the right. This is stable. The left effusion is smaller f rom the prior exam. The right effusion is stable. Colonic diverticuli without a cute abnormality. CONCLUSION: 1. The retroperitoneal hematoma on the right is smaller from the prior study. 2. Drainage catheter within the right upper quadrant felt to relate to a doug cystostomy tube. No biliary dilatation. 3. Nonobstructing left renal stone. 4. Colonic diverticulosis. 5. Improving left effusion with unchanged right effusion. 6. Bibasilar consolidation appears stable. Chest CT 11/12/17 Signed Impressions: CONCLUSION: 1. Bilateral pleural effusions left greater than right. Areas of infiltrate ve rsus atelectasis left lung base difficult to rule out a small superimposed pneu monia. 2. Dense coronary atherosclerotic disease. Chest Ultrasound 11/07/17 Signed Impressions: CONCLUSION: 1. Left-sided pleural effusion. Percutaneous Cholangiogram 11/01/17 Signed Impressions: CONCLUSION: 1. Uncomplicated percutaneous cholecystostomy as above. Renal Ultrasound 10/31/17 Signed Impressions: CONCLUSION: 1. No hydronephrosis. 2. Increased cortical echogenicity consistent with medical renal disease. Head Magnetic Resonance Angiography 10/31/17 Signed Impressions: CONCLUSION: 1. Unremarkable MRA of the brain. Head CT 10/31/17 Signed Impressions: CONCLUSION: 1. Negative CT Head non contrast. 2. No evidence of acute infarct, hemorrhage, mass or edema. Brain MRI 10/31/17 Signed Impressions: CONCLUSION: 1. Senescent changes with minimal periventricular ischemic white matter demyel ination. 2. No acute abnormality. Specifically, no acute infarction, mass or hemorrhage . Gall Bladder Ultrasound 10/30/17 Signed Impressions: CONCLUSION: 1. Fatty infiltration of the liver. 2. Multiple stones in the gallbladder. No biliary tract obstruction. Extremity Arterial Study 10/28/17 0000 Signed Impressions: CONCLUSION: 1. Abnormal ABIs, left greater than right. The left DAVID is significantly dimin ished at 0.14. Aorta w/Runoff CTA 10/28/17 0000 Signed Impressions: Service Date/Time: Saturday, October 28, 2017 21:50 - CONCLUSION: 1. Acute occlusion of the left inflow with concern for short segment occlusion involving the distal right inflow. This raises concern for an embolic event. 2. Right lower extremity shows scattered disease throughout the common femoral artery, SFA and [id number] popliteal artery with three-vessel runoff to the foot. 3. Left lower extremity with reconstitution of the common femoral artery with diseased out flow and two vessel runoff to the foot as detailed above. 4. 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 5. Hepatic steatosis. 6. Cholelithiasis. Juanjose Mckeon Jr., MD Physical Exam HEENT: Normocephalic; atraumatic CHEST : BS equal bilaterally CARDIAC: RRR ABDOMEN: Distended, semi-firm, nontender, bowel sounds active, biliary drain with no drainage. NG to LIWS SKIN: Normal; no rash; no jaundice. [employer]: Alert and oriented x 3 (Annika Tenorio) Assessment and Plan Assessment: (1) Sepsis ICD Codes: A41.9 - Sepsis, unspecified organism Status: Acute Plan Assessment: - Choledocholithiasis with elevated LFTs, trending down CT abdomen WO IV contrast (11/01) --> Gallstones, appears to be areas of increased density within the common bile duct concerning for choledocholithiasis. S/P IR for percutaneous cholecystostomy drain on 11/01 - Culture with heavy growth of gram positive and gram negative enteric terrell, no further work up Pt on Unasyn - Elevated LFTs- likely secondary to obstruction from above but liver work up pending Iron-145 TIBC-214 %sat-67.7 Ferritin-248 AFP-6.9 Hepatitis panel negative [place], AMA, ASMA negative. AAT-215 Ceruloplasmin-24 - Anemia, normocytic- with Hemoccult positive stools- no obvious GIB - Cold left leg- Heparin gtt - now discontinued Pt with prolonged ICU admission, our service followed him for a long time, however he was unstable for GI procedures for a long time. He was considered stable enough for ERCP on 11/25- however, he was intubated for procedure. ERCP --> Normal appearing ampulla. Lots of food/liquid in the stomach. Gastritis , fluid was suctioned as well as possible. Ampulla cannulated. PD normal. CBD dilated with multiple filling defects. Because of patients critical condition no attempt made to remove stones. 8.5 x 9 cm stent placed in the CBD under fluoroscopy. (11/27) Pt extubated yesterday. Abdomen distended and firm. Reports of nausea and vomiting last night. KUB revealed large amount of stool throughout the visualized portions of the colon which appear dilated. Findings likely reflect colonic ileus although differential considerations include distal partial chronic obstruction. Pt can not recall when his last BM was, however there is one documented in the chart. (11/28) Pt with no BM today. Abdomen distended but slightly less firm. KUB from this morning Stable bowel gas pattern with significant air in the sigmoid colon. NG tube within the stomach. Will add Red rectal tube to gravity, discussed with RNIrvin. Significant increase in T bili today, up to 6, no drainage in biliary drain and KUB noted catheter is coiled overlying the RUQ. Plan IR to check biliary drain Continue Lactulose and Glycerin suppository Reglan Red rectal tube to gravity NGT to LIWS OK for ice chips Further recommendations based on clinical course and results of above Pt has been seen and examined by myself and Dr. Kirk and this note is written on her behalf (Annika Tenorio) Physician Comments agree with above (Debbie Kirk MD) Problem Qualifiers (1) Sepsis: Qualified Codes: A41.9 - Sepsis, unspecified organism Annika Tenorio Nov 28, 2017 13:15 Debbie Kirk MD Nov 28, 2017 19:14
--- NOTE | 2017-11-28 14:17 | HHI.HCPN ---
Reason for visit a. To assist with evaluation and management of symptoms including: Shortness of breath, pain, debility, constipation. b. To assist medical decision maker(s) with: better understanding of current medical conditions; weighing benefits/burdens of medical treatment options; making medical treatment decisions. . (Rocio Aguiar) Subjective/Interval History Pt seen today to follow up on abd discomfort, constipation, dyspnea. Pt's Sister Jennifer at bedside. Pt denies abd discomfort unless a provider touches it. Sister Jennifer says pt was confused earlier this morning. She notes that he will not move himself in bed. Sister reports he is asking her to just "let me ." She says she wants him to keep trying "until there's no hope." After passing his swallow eval Saturday he began experiencing n/v, per RN appeared to be old blood. KUB 11/26 showed large amt stool in colon, dilated colon, likely colonic ileus. GI reconsulted and ordered NGT. CXR 11/28 shows wedge shaped infiltrate left upper lobe. Temp 99.8 this morning. Pt with continued abd distention and KUB 11/28 shows significant air in sigmoid. GI has ordered rectal tube, and is considering decompressive colonoscopy if no improvement. On my exam he is distended and tender on exam. He is oriented. Tbil jumped up to 6.3 today from 1 yesterday. PLT trending down. HH relatively stable. On 4L o2 via NC. CCM consulted hospitalist service to resume care in am. Provided brief medical review to pt and his sister, addressed his improvements and limitations in respiratory status, addressed new setback of colonic ileus, and that he is at risk for additional and recurrent complications while bedbound even though prior problems may have improved. . Family/friend interactions As above. . (Rocio Aguiar) Advance Directives Living Will: Copy in medical record Health Care Surrogate: Copy in medical record Durable Power of Sheep Clipper: Never completed (Rocio Aguiar) Advance Directive Specifics Date completed: 10/27/2012. . Health Care Surrogate(s): Patient electing sister Jennifer Adal as healthcare surrogate decision maker. No alternate surrogates. . Documented care wishes: Living will with standard verbiage as it pertains to terminal condition, end- stage condition or persistent vegetative state. . (Rocio Aguiar [facility]) Objective Vital Signs Date Time Temp Pulse Resp B/P (MAP) Pulse Ox O2 Delivery O2 Flow Rate FiO2 11/28/17 12:00 98.3 89 19 90/53 (65) 90 11/28/17 12:00 89 11/28/17 10:07 93 Nasal Cannula 4.00 11/28/17 10:00 106 11/28/17 08:00 115 11/28/17 08:00 99.8 115 22 113/60 (77) 90 11/28/17 07:00 96 Nasal Cannula 4.00 11/28/17 06:00 111 11/28/17 04:00 99.7 115 26 144/71 (95) 86 11/28/17 04:00 115 11/28/17 02:00 109 11/28/17 00:00 98.8 92 18 161/75 (103) 86 11/28/17 00:00 92 11/27/17 22:00 89 11/27/17 20:09 92 Nasal Cannula 4.00 11/27/17 20:00 93 11/27/17 20:00 98.3 93 16 131/70 (90) 91 11/27/17 19:00 92 Nasal Cannula 4.00 11/27/17 18:00 94 11/27/17 16:00 97.9 91 20 110/59 (76) 91 11/27/17 16:00 91 Intake & Output 11/28/17 11/28/17 07:00 19:00 Intake Total 1000 ml Output Total 1270 ml Balance -270 ml IV Total 1000 ml Output Urine Total 600 ml Gastric Drainage Total 650 ml Drainage Total 20 ml # Bowel Movements 1 Physical Exam CONSTITUTIONAL/GENERAL: This is an adequately nourished patient, resting in bed. Mild discomfort. TUBES/LINES/DRAINS: NC, PIV's, NGT, biliary drain, Peña catheter SKIN: multiple areas of ecchymoses on bilateral upper extremities, erythema noted on LUE posterior aspect. CARDIOVASCULAR: RRR. Warm bilateral extremities, no cyanosis noted. RESPIRATORY/CHEST: mildly short of breath with conversation. + 4L o2 via NC. + rhonchi, respirations shallow. GASTROINTESTINAL: Abdomen obese, distended, semi-firm, tympanitic diffusely. drain right quadrant. BS hypoactive. Abd diffusely TTP. MUSCULOSKELETAL: Extremities without clubbing, cyanosis. + pitting edema BLE R> L. NEUROLOGICAL: mildly lethargic but oriented. . (Rocio Augiar) Diagnostic Tests Laboratory Laboratory Tests Test 11/26/17 06:23 11/26/17 12:05 11/27/17 04:44 11/28/17 04:20 White Blood Count 5.3 TH/MM3 (4.0-11.0) 5.0 TH/MM3 (4.0-11.0) 4.4 TH/MM3 (4.0-11.0) Red Blood Count 3.54 MIL/MM3 (4.50-5.90) 3.61 MIL/MM3 (4.50-5.90) 3.19 MIL/MM3 (4.50-5.90) Hemoglobin 11.0 GM/DL (13.0-17.0) 11.1 GM/DL (13.0-17.0) 10.0 GM/DL (13.0-17.0) Hematocrit 32.7 % (39.0-51.0) 33.8 % (39.0-51.0) 29.9 % (39.0-51.0) Mean Corpuscular Volume 92.3 FL (80.0-100.0) 93.6 FL (80.0-100.0) 93.6 FL (80.0-100.0) Mean Corpuscular Hemoglobin 31.1 PG (27.0-34.0) 30.7 PG (27.0-34.0) 31.3 PG (27.0-34.0) Mean Corpuscular Hemoglobin Concent 33.6 % (32.0-36.0) 32.9 % (32.0-36.0) 33.4 % (32.0-36.0) Red Cell Distribution Width 18.7 % (11.6-17.2) 18.3 % (11.6-17.2) 18.7 % (11.6-17.2) Platelet Count 73 TH/MM3 (150-450) 66 TH/MM3 (150-450) 64 TH/MM3 (150-450) Mean Platelet Volume 11.7 FL (7.0-11.0) 11.5 FL (7.0-11.0) 11.5 FL (7.0-11.0) Neutrophils (%) (Auto) 94.0 % (16.0-70.0) 88.4 % (16.0-70.0) 93.6 % (16.0-70.0) Lymphocytes (%) (Auto) 3.8 % (9.0-44.0) 9.2 % (9.0-44.0) 4.7 % (9.0-44.0) Monocytes (%) (Auto) 1.9 % (0.0-8.0) 2.0 % (0.0-8.0) 1.3 % (0.0-8.0) Eosinophils (%) (Auto) 0.2 % (0.0-4.0) 0.1 % (0.0-4.0) 0.2 % (0.0-4.0) Basophils (%) (Auto) 0.1 % (0.0-2.0) 0.3 % (0.0-2.0) 0.2 % (0.0-2.0) Neutrophils # (Auto) 5.0 TH/MM3 (1.8-7.7) 4.4 TH/MM3 (1.8-7.7) 4.1 TH/MM3 (1.8-7.7) Lymphocytes # (Auto) 0.2 TH/MM3 (1.0-4.8) 0.5 TH/MM3 (1.0-4.8) 0.2 TH/MM3 (1.0-4.8) Monocytes # (Auto) 0.1 TH/MM3 (0-0.9) 0.1 TH/MM3 (0-0.9) 0.1 TH/MM3 (0-0.9) Eosinophils # (Auto) 0.0 TH/MM3 (0-0.4) 0.0 TH/MM3 (0-0.4) 0.0 TH/MM3 (0-0.4) Basophils # (Auto) 0.0 TH/MM3 (0-0.2) 0.0 TH/MM3 (0-0.2) 0.0 TH/MM3 (0-0.2) CBC Comment AUTO DIFF AUTO DIFF AUTO DIFF Differential Total Cells Counted 100 100 100 Neutrophils % (Manual) 78 % (16-70) 57 % (16-70) 78 % (16-70) Band Neutrophils % 18 % (0-6) 37 % (0-6) 19 % (0-6) Lymphocytes % 3 % (9-44) 5 % (9-44) 1 % (9-44) Monocytes % 1 % (0-8) 2 % (0-8) Neutrophils # (Manual) 5.1 TH/MM3 (1.8-7.7) 4.8 TH/MM3 (1.8-7.7) 4.3 TH/MM3 (1.8-7.7) Differential Comment FINAL DIFF MANUAL FINAL DIFF MANUAL FINAL DIFF MANUAL Toxic Granulation 1+ (NORMAL) 1+ (NORMAL) Platelet Estimate LOW (NORMAL) LOW (NORMAL) LOW (NORMAL) Platelet Morphology Comment NORMAL (NORMAL) NORMAL (NORMAL) ENLARGED (NORMAL) Hematology Comments Blood Urea Nitrogen 15 MG/DL (7-18) 61 MG/DL (7-18) 57 MG/DL (7-18) Creatinine 0.75 MG/DL (0.60-1.30) 1.13 MG/DL (0.60-1.30) 1.08 MG/DL (0.60-1.30) Random Glucose 116 MG/DL (74-106) 87 MG/DL (74-106) 67 MG/DL (74-106) Total Protein 7.3 GM/DL (6.4-8.2) 4.9 GM/DL (6.4-8.2) Albumin 2.4 GM/DL (3.4-5.0) 1.9 GM/DL (3.4-5.0) Calcium Level 8.5 MG/DL (8.5-10.1) 7.8 MG/DL (8.5-10.1) 7.6 MG/DL (8.5-10.1) Phosphorus Level 2.7 MG/DL (2.5-4.9) 3.4 MG/DL (2.5-4.9) Magnesium Level 2.2 MG/DL (1.5-2.5) 2.7 MG/DL (1.5-2.5) 3.1 MG/DL (1.5-2.5) Alkaline Phosphatase 138 U/L (45-117) 101 U/L (45-117) Aspartate Amino Transf (AST/SGOT) 24 U/L (15-37) 49 U/L (15-37) Alanine Aminotransferase (ALT/SGPT) 13 U/L (12-78) 97 U/L (12-78) Total Bilirubin 1.0 MG/DL (0.2-1.0) 6.3 MG/DL (0.2-1.0) Sodium Level 143 MEQ/L (136-145) 146 MEQ/L (136-145) 145 MEQ/L (136-145) Potassium Level 4.4 MEQ/L (3.5-5.1) 4.3 MEQ/L (3.5-5.1) 4.0 MEQ/L (3.5-5.1) Chloride Level 107 MEQ/L (98-107) 110 MEQ/L (98-107) 107 MEQ/L (98-107) Carbon Dioxide Level 30.1 MEQ/L (21.0-32.0) 25.1 MEQ/L (21.0-32.0) 27.0 MEQ/L (21.0-32.0) Anion Gap 6 MEQ/L (5-15) 11 MEQ/L (5-15) 11 MEQ/L (5-15) Estimat Glomerular Filtration Rate 104 ML/MIN (>89) 65 ML/MIN (>89) 68 ML/MIN (>89) Blood Gas Puncture Site RT RADIAL Blood Gas Patient Temperature 98.6 Blood Gas HCO3 29 mmol/L (22-26) Blood Gas Base Excess 4.2 mmol/L (-2-2) Blood Gas Oxygen Saturation 94 % (90-100) Arterial Blood pH 7.39 (7.380-7.420) Arterial Blood Partial Pressure CO2 49 mmHg (38-42) Arterial Blood Partial Pressure O2 102 mmHg (61-120) Arterial Blood Oxygen Content 15.0 Vol % (12.0-20.0) Arterial Blood Carboxyhemoglobin 1.4 % (0-4) Arterial Blood Methemoglobin 1.5 % (0-2) Blood Gas Hemoglobin 11.2 G/DL (12.0-16.0) Oxygen Delivery Device VENTILATOR Blood Gas Ventilator Setting CPAP 5/10PS Blood Gas Inspired Oxygen 40 % Myelocytes 1 % (0-0) Dohle Bodies PRESENT (NONE SEEN) Stomatocytes 1+ (NORMAL) Nucleated Red Blood Cells 3 /100 WBC (0-0) (Rocio Aguiar [employer] SOFTWARE DEVELOPER) Result Diagram: 11/28/1741911/28/17419 Microbiology Microbiology Date/Time Source Procedure Growth Status 11/26/17 22:00 Gastric Gastric Occult Blood - Final GASTROCCULT NEGATIVE Complete Imaging Last Impressions Chest X-Ray 11/28/17599 Signed Impressions: CONCLUSION: Wedge-shaped infiltrate in the left upper lobe Abdomen X-Ray 11/28/17599 Signed Impressions: CONCLUSION: Stable bowel gas pattern with significant air in the sigmoid colon. Catheter is coiled overlying the right upper quadrant unchanged. NG tube within the stomac h GI Procedure 11/25/17 Signed Impressions: CONCLUSION: Multiple filling defects with a biliary stent left in place. Abdomen/Pelvis CT 11/21/17 Signed Impressions: The retroperitoneal hematoma on the right is smaller from the prior examination . It previously measured 21 x 11 x 12 cm and now measures 21 x 8 x 11 cm. No ac [place] hemorrhage appreciated. A drainage catheter is seen within the gallbladder fossa and the gallbladder is totally decompressed. This is stable in appearance from the prior study. No biliary dilatation. A 3 mm nonobstructing left renal stone noted. Bibasilar areas of consolidation affecting the left lower lobe to a greater degree than the right. This is stable. The left effusion is smaller f rom the prior exam. The right effusion is stable. Colonic diverticuli without a cute abnormality. CONCLUSION: 1. The retroperitoneal hematoma on the right is smaller from the prior study. 2. Drainage catheter within the right upper quadrant felt to relate to a doug cystostomy tube. No biliary dilatation. 3. Nonobstructing left renal stone. 4. Colonic diverticulosis. 5. Improving left effusion with unchanged right effusion. 6. Bibasilar consolidation appears stable. Chest CT 11/12/17 Signed Impressions: CONCLUSION: 1. Bilateral pleural effusions left greater than right. Areas of infiltrate ve rsus atelectasis left lung base difficult to rule out a small superimposed pneu monia. 2. Dense coronary atherosclerotic disease. Chest Ultrasound 11/07/17 Signed Impressions: CONCLUSION: 1. Left-sided pleural effusion. Percutaneous Cholangiogram 11/01/17 Signed Impressions: CONCLUSION: 1. Uncomplicated percutaneous cholecystostomy as above. Renal Ultrasound 10/31/17 Signed Impressions: CONCLUSION: 1. No hydronephrosis. 2. Increased cortical echogenicity consistent with medical renal disease. Head Magnetic Resonance Angiography 10/31/17 Signed Impressions: CONCLUSION: 1. Unremarkable MRA of the brain. Head CT 10/31/17 Signed Impressions: CONCLUSION: 1. Negative CT Head non contrast. 2. No evidence of acute infarct, hemorrhage, mass or edema. Brain MRI 10/31/17 Signed Impressions: CONCLUSION: 1. Senescent changes with minimal periventricular ischemic white matter demyel ination. 2. No acute abnormality. Specifically, no acute infarction, mass or hemorrhage . Gall Bladder Ultrasound 10/30/17 Signed Impressions: CONCLUSION: 1. Fatty infiltration of the liver. 2. Multiple stones in the gallbladder. No biliary tract obstruction. Extremity Arterial Study 10/28/17 Signed Impressions: CONCLUSION: 1. Abnormal ABIs, left greater than right. The left DAVID is significantly dimin ished at 0.14. Aorta w/Runoff CTA 10/28/17 Signed Impressions: Service Date/Time: Saturday, October 28, 2017 21:50 - CONCLUSION: 1. Acute occlusion of the left inflow with concern for short segment occlusion involving the distal right inflow. This raises concern for an embolic event. 2. Right lower extremity shows scattered disease throughout the common femoral artery, SFA and [id number] popliteal artery with three-vessel runoff to the foot. 3. Left lower extremity with reconstitution of the common femoral artery with diseased out flow and two vessel runoff to the foot as detailed above. 4. 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 5. Hepatic steatosis. 6. Cholelithiasis. Juanjose Mckeon Jr., MD Procedures * 10/31/17: Endotracheal intubation * 11/01/17: Biliary drain placement * 11/07/17: Extubation * 11/13/17: Left-sided pigtail chest tube * 11/17/17: chest tube removed * 11/25/17: ERCP * 11/25/17: intubated for ERCP * 11/26/17: extubated . (Rocio Aguiar [employer] SOFTWARE DEVELOPER) Assessment and Plan Disease Oriented Problem List: (1) Pneumonia (2) COPD (chronic obstructive pulmonary disease) (3) Acute renal failure (4) Retroperitoneal bleed (5) Acute blood loss anemia (6) Sepsis (7) Peripheral vascular disease (8) CKD (chronic kidney disease) stage 4, GFR 15-29 ml/min (9) Choledocholithiasis (10) Physical deconditioning (11) Ischemia of left lower extremity Symptom Scale: (1) Dyspnea 0-10 Scale: Unable to quantify (2) Pain 0-10 Scale: Unable to quantify (3) Debility 0-10 Scale: Unable to quantify (4) Constipation 0-10 Scale: Unable to quantify Pertinent Non-Medical Issues Psychosocial: Patient originally from [facility]. Moved to [place] 6 years ago. He is , has 3 biological children. 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 No service. Spiritual: No taoism affiliation. Legal: Advance directives completed. Ethical issues impacting care: No ethical issues identified. . Important Contacts Sister/healthcare surrogate: Jennifer Galeas . Prognosis Mr. Bates is a 67-year-old male with a medical history significant for COPD, hypertension, CAD and peripheral vascular disease. Patient presented to ED via EMS on 10/28/17 for evaluation of shortness of breath and pain to his left leg. He was found with occlusion of left iliac artery, not a surgical candidate secondary to sepsis, pneumonia and respiratory failure. Clinical course complicated by acute on chronic renal failure, choledocholithiasis requiring biliary drain placement, retroperitoneal bleed with development of hemorrhagic shock. Patient remains in critical condition, high risk for further complications, decline and . Overall prognosis is guarded. . Code Status: Alternative Code Plan * CODE STATUS: Alternate code, intubation only. * HEALTHCARE DECISION-MAKING: Patient participating medical decision making, however, intermittent confusion secondary to encephalopathy/acute illness. Advanced directives completed, patient designated his sister Jennifer Galeas as healthcare surrogate decision maker. No alternate surrogate designated. Palliative care recommends shared decision making with patient and sister given intermittent confusion. In addition, patient appears to rely on sister for guidance. * GOALS OF CARE: Patient supported by Sister Jennifer electing continuation of aggressive management short of NO cardiac resuscitation. Patient and sister receptive to palliative care follow-up. * SYMPTOMS: = Dyspnea: Multifactorial secondary to COPD, acute illness, physical deconditioning, anemia -retroperitoneal hematoma. Currently on 4Lo2 via NC, PRN duonebs. Mild SOB to conversation. CXR 11/28 shows wedge shaped infiltrate left upper lobe. Currently on Solu- Medrol 40 mg daily, BID symbicort. = Pain: Secondary to multiple lines, prolonged hospitalization/Bedrest, constipation, biliary drain, NGT. abd tender on exam. [place] 7.5/325 mg available as needed. = Debility: Secondary to prolonged hospitalization and acute on chronic illness. Pt not wanting to move, appears to be worsening. PT following, PT and rehab recommended. per case mgmt being followed by [facility] but unlikely to be accepted, could be accepted to [facility]. = constipation, distention: did have + pasty BMs 11/26 & 11/27. Distended, BS soft. Has diet devoid of fiber. KUB 11/28 stable, air in significant sigmoid. GI following, has NGT, getting rectal tube NPO except ice chips, on reglan, bowel regimen. =r/o dysphagia s/p extubation - remained intubated 1 day after ERCP. did pass swallow eval but now NPO for ileus. = heartburn - pt c/o heartburn. takes omeprazole at home. on famotidine currently. has been c/o discomfort. May benefit from PPI * Palliative care will continue to follow up for further clarification of goals of care as patient's clinical course continues to evolve. (Rocio Aguiar) Time Spent Total Floor Time (mins): 25 (chart review, PE, discussion with pt, [facility], RN) (Rocio Aguiar) Attestation To help prompt me to consider important information that might be impacting today's encounter and assessment, information from prior notes written by myself or my colleagues may have been "brought forward" into today's note. My signature on this note, however, is an attestation that I personally performed the exam, history, and/or decision-making noted today, and, unless otherwise indicated, the interactions with patient, family, and staff as well as the review of records all occurred today. I also attest that the listed assessment and stated plan reflect my best clinical judgment today based on the combination of historical information, prior notes, and today's exam/ interactions. When time spent is documented, it refers only to time spent today by the signer, or if indicated, combined time spent today by collaborating physician/nurse practitioner. (Rocio Aguiar) Collaborating MD Comments concur with above assessments,plan, documentation . (Maria A Davis) Rocio Aguiar Nov 28, 2017 14:17 Maria A Davis Nov 29, 2017 10:03
[2017-11-28] MEDS: ACETAMINOPHEN/HYDROcodone 325 MG/7.5 MG TAB PO PRN ×2 (16:56→23:03)
[2017-11-28] MEDS: SODIUM CHLORIDE 0.9% 10 ML VIAL IV FLUSH SCH (19:00)
--- NOTE | 2017-11-28 19:20 | HHI.PR ---
Subjective Remarks 67 YOWM with COPD,Sepsis, ischemia of leg mild sob cough, occ sp No Fever On high flow 02 70% Abd discomfort improved NGT to Suction Objective Vital Signs Vital Signs Date Time Temp Pulse Resp B/P (MAP) Pulse Ox O2 Delivery O2 Flow Rate FiO2 11/28/17 18:00 98.3 78 15 110/59 (76) 93 11/28/17 18:00 78 11/28/17 16:00 98.1 83 15 132/63 (86) 94 11/28/17 16:00 83 11/28/17 15:59 20 11/28/17 14:00 84 11/28/17 12:00 98.3 89 19 90/53 (65) 90 11/28/17 12:00 89 11/28/17 10:07 93 Nasal Cannula 4.00 11/28/17 10:00 106 11/28/17 08:00 115 11/28/17 08:00 99.8 115 22 113/60 (77) 90 11/28/17 07:00 96 Nasal Cannula 4.00 11/28/17 06:00 111 11/28/17 04:00 99.7 115 26 144/71 (95) 86 11/28/17 04:00 115 11/28/17 02:00 109 11/28/17 00:00 98.8 92 18 161/75 (103) 86 11/28/17 00:00 92 11/27/17 22:00 89 11/27/17 20:09 92 Nasal Cannula 4.00 11/27/17 20:00 93 11/27/17 20:00 98.3 93 16 131/70 (90) 91 I/O 11/27/17 11/27/17 11/27/17 11/28/17 11/28/17 11/28/17 07:00 15:00 23:00 07:00 15:00 23:00 Intake Total 120 ml 1000 ml 0 ml Output Total 760 ml 900 ml 1270 ml 551 ml Balance -640 ml 100 ml -1270 ml -551 ml Intake Oral 120 ml 0 ml IV Total 1000 ml Output Urine Total 300 ml 450 ml 600 ml 415 ml Gastric Drainage Total 400 ml 450 ml 650 ml 100 ml Drainage Total 60 ml 20 ml 36 ml # Bowel Movements 0 1 1 2 Result Diagram: 6/21/18 0420 6/21/18 0420 Objective Remarks GENERAL: WBWN WM, mild abd discomfort SKIN: Warm and dry. HEAD: Normocephalic. EYES: No scleral icterus. No injection or drainage. NECK: Supple, trachea midline. No JVD or lymphadenopathy. CARDIOVASCULAR: Regular rate and rhythm without murmurs, gallops, or rubs. RESPIRATORY: Breath sounds equal bilaterally. No accessory muscle use. GASTROINTESTINAL: Abdomen soft, non-tender, nondistended. MUSCULOSKELETAL: No cyanosis, or edema. Cold left leg BACK: Nontender without obvious deformity. No CVA tenderness. A/P Assessment and Plan IMPRESSION: 1. Sepsis. 2. Chronic obstructive pulmonary disease, mild exacerbation. 3. Left basilar infiltrate. 4. Urinary tract infection 5. Encephalopathy. 6. Cold left leg.-resolved 7. Thrombocytopenia. 8. VDRF--reintubated 11/25 9. Severe anemia, retroperitoneal bleed PLAN: NGT , intermittent suction Cont Abx per ID Monitor renal functions DW RN at BS Monitor H/H High flow 02, keep sat >92% Dennis Johnson MD Nov 28, 2017 19:20
[2017-11-29] VITALS (7 sets, daily range): BP systolic 112–117; BP diastolic 58–65; PULSE 0–128; RESP 16–21; TEMP 98.2–98.5; O2SAT 85–95
[2017-11-29] MEDS: RESP: ALBUTEROL 2.5 MG/IPRATROPIUM 0.5 MG NEB (SCH) NEB (03:53)
[2017-11-29] MEDS: CHLORHEXIDINE GLUCONATE 2 % 1 PACK (2 CLOTHS) TOP SCH (04:00)
[2017-11-29] MEDS: hydrALAZINE HCL 50 MG TAB PO SCH (05:35)
[2017-11-29] MEDS: INSULIN NovoLIN REGULAR SUPPLEMENTAL SCALE SQ SCH (05:35)
[2017-11-29] MEDS: DEXTROSE 50% IN WATER 50 ML VIAL(D50) IV PUSH PRN (05:36)
[2017-11-29] MEDS ORDERED: ETOMIDATE 40 MG/20 ML VIAL ONE (06:43)
[2017-11-29] MEDS ORDERED: ROCURONIUM INJ 50 MG/5 ML VIAL ONE (06:43)
[2017-11-29] MEDS ORDERED: MIDAZOLAM HCL 5 MG/ML VIAL (1 ML) ONE (06:43)
[2017-11-29] MEDS ORDERED: RESP: ALBUTEROL 2.5 MG/IPRATROPIUM 0.5 MG NEB (SCH) NEB (07:00)
[2017-11-29] MEDS ORDERED: PROPOFOL 1000 MG/100 ML INJ 100 ML IV PRN (07:00)
--- NOTE | 2017-11-29 07:03 | PD.PROCEDR ---
Procedure Note Procedure Emergency intubation for acute hypoxemic respiratory failure INTUBATION: The patient was put in optimal position for the procedure. Rapid sequence intubation was initiated by me using 20 mg milligrams of etomidate IV and 5 milligrams of Versed IV, and 50 mg IV Rocuronium. DL with Mac 4 blade Grade 1 view single attempt. The patient was intubated with a 8.0 cuffed endotracheal tube. Tube placement was confirmed by visualization of the tube and balloon passing through the cords, capnometry and subsequent chest x-ray. Breath sounds were equal and well aerated bilaterally postintubation. No breath sounds over stomach. Patient tolerated procedure well. Anil Yip MD Nov 29, 2017 07:03
--- NOTE | 2017-11-29 07:38 | RADRPT ---
EXAM DATE: 11/29/2017 7:29 AM EDT AGE/SEX: 67 years / Male INDICATIONS: Post Intubation. CLINICAL DATA: This is the patient's subsequent encounter. Patient reports that signs and symptoms h ave been present for 1 month and indicates a pain score of Nonresponsive. MEDICAL/SURGICAL HISTORY: Chronic obstructive pulmonary disease. Umbilical hernia repair. [place] [facility] [place], CHEST SINGLE AP, 11/25/2017. . FINDINGS: 2 rotated AP portable views of the chest demonstrate a normal-sized cardiac silhouette with calcifica tion of the aorta. Endotracheal tube is present with distal tip of the aortic knob level measuring ap proximately 1.7 cm from the joceline. Nasogastric tube is looped overlying the left upper quadrant carter lar to the prior study. There is abnormal airspace consolidation in the left lower lobe and left lung base with slight blunting of the left costophrenic sulcus. Stable linear atelectasis or scar is pres ent at the right lung base. There is generalized lucency in the right lung greater than the left whic h believe is related to underlying obstructive airways disease and patient rotation. I do not see any pleural line to indicate a definite pneumothorax. Bones and soft tissues demonstrate no acute findin g. CONCLUSION: 1. Endotracheal tube tip measures approximately 1.7 cm from the joceline. 2. Increased airspace consolidation in the left lower lobe with improvement in the airspace opacity in the left midlung. 3. There is generalized lucency in the right hemithorax that I believe is related to a combination o f rotation and emphysema. However, given the appearance I would suggest performing a follow-up chest x-ray with better positioning to ensure that no pneumothorax is present. Electronically signed by: Phi Salinas MD 11/29/2017 7:36 AM EDT
--- NOTE | 2017-11-29 07:58 | HHI.CCPN ---
Subjective Remarks/Hospital Course 67-year-old male presents to the emergency department via EMS for evaluation of shortness of breath and pain and numbness to the left leg. Patient believes that he is shortness of breath is related to the pain in his leg. He cannot feel his leg from his groin down. He denies any history of the same. He does report history of COPD. He denies any known fevers or chills. He denies chest pain. Patient received 1 L normal saline bolus via EMS. Patient denies any history of bleeding or blood clots. No recent surgery or travel. No hemoptysis. No history of DVT/PE. He denies leg edema. Patient states the pain is 10/10 to the left leg. No exacerbating or alleviating factors. Moderate severity. 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 The right inflow is heavily diseased as well. The patient was evaluated by vascular surgeon component inspector and was immediately started on heparin drip. SUBJ 10/29: Remains critically ill, encephalopathy. 4 out of 4 bottles positive for GNR. I will change Rocephin to Zosyn renally dosed to cover for Pseudomonas also. Continue azithromycin. Creatinine still elevated but slightly improved. WBC count slightly increased 17.2 now with 24% bands. Source of GNR sepsis could be either UTI or pneumonia. Will consult ID as well. Remains on IV heparin for acute left limb ischemia 10/30: platelets falling >50% again today. Cr still rising, but could be ATN/ contrast nephropathy. blood cultures growing e. coli by PCR, full speciation to follow. urine culture pending. discussed case with Dr. Lopez, will stop heparin , start argatroban and send HIT/CHARLEEN. denies complaints for me, but does have objective tenderness on palpation, RUQ. 10/31: Emergently intubated today a.m. by Dr. Puckett for worsening mental status, encephalopathy and worsening respiratory failure. Prior to intubation Dr. Puckett ' exam revealed right upper quadrant tenderness. Ultrasound of the gallbladder yesterday showed gallstones. Overnight Argatroban was supratherapeutic and was held, platelet count also dropped to 30,000, HIT screen is pending. Postintubation bilateral pupils are reactive but unequal. Will repeat CT of the head, CT abdomen pelvis. BUN 49/Creat 2.7, leukocytosis persisting 11/01: no improvements. ct abd/pelvis with evidence of possible choledocholithiasis. perc doug tube planned for this AM. on esmolol infusion for afib RVR. fio2 increased to 70%. 11/02: Sodium bicarbonate infusion continued per nephrology in the setting of rhabdomyolysis serial creatinine kinase pending. Cholecystostomy drain placement 100 cc overnight. Continued thrombocytopenia, CBC, serotonin release assay pending. Plan for reinitiation of heparin awaiting GI consultation for possible invasive procedures prior to restarting heparin. Patient sinus rhythm with occasional PAC's. 11/03: No acute events overnight. Sodium bicarbonate infusion discontinued this a.m. had any improved this a.m.. Chest x-ray showed worsening consolidation, FiO2 requirements were increased to 65% during the night. CPAP trials on hold currently. Biliary drainage from cholecystostomy tube revealing gram-negative rods. The patient continues on antibiotics. Bilateral dorsalis pedis pulses monophasic signals by Doppler. Heparin infusion reinitiated. 11/04: Sodium bicarbonate infusion discontinued at 7 AM yesterday. Chest x-ray worsening consolidation versus pleural effusions. FiO2 slightly decreased to 60 %, ABG improving. Pending quantification via ultrasound of pleural fluid in am. Lasix 40mg x1 additional dose provided today . PPN discontinued discussed with Dr. Colon tube feeds initiated at [facility]. Dietary consult ordered. 11/05: Afebrile. Patient tolerating tube feeds advanced to goal rate of 55 cc/ hr. chest x-ray with slight improvement FiO2 decreased to 55% ABG pending. Initiation of CPAP trial to be attempted today. 11/06: Late entry note. Patient seen at 628am. Patient was started on CPAP and continues on CPAP greater than 10 hours. Patient following commands, currently on Precedex infusion. 11/07: Patient remained on CPAP trials for approximately 12 hours yesterday and discontinued because of agitation. CPAP trials reinitiated this a.m. Patient complaint of sore throat Lortab ordered. Patient continues on Precedex for ventilator weaning process. Chest x-ray still shows pulmonary edema, additional dose Lasix 401 dose given this a.m.. When infusion continued, monophasic Doppler signals bilateral dorsalis pedal pulses noted. 11/08: Afebrile . Patient successfully extubated yesterday. Remains on O2 at 4 L nasal cannula O2 saturation 94-95%. Patient continues on heparin infusion, she was noted to have 9 BMs last evening plan for serial H&H's concern for possible stool with occult blood. Repeat stool for occult blood. Plan for possible bedside thoracentesis ,if respiratory requirements increase, currently on O2 4 L via nasal cannula in no apparent distress. 11/11 Late entry, notified of re-consult at 17:[address] Johnson, saw patient and immediately placed L IJ CVL because patient had ripped out an IV and had insufficient peripheral IV access given clinical condition. RN states patient had Hgb 7.5 this morning. Trend was unusual with Hb 8.3--> 12.5 (without transfusion)-->7.5 and lab recommended repeat. Repeat was drawn and was 4.2. Meanwhile, while awaiting re-draw patient became hypotensive, MAP down in the 40s, and was given albumin 25 gram IV. Now he has received 1 unit PRBC and BP improved to 120s/60s. Getting 2 additional units of PRBC stat. Nurse states heparin has been off since 12:30. Sending stat coags/fibrinogen. Patient denies nausea or vomiting. He has some right-sided abdominal pain. There is dark brown drainage from cholecystostomy tube. He has not had a bowel movement in 48 hours. No obvious evidence of GI bleeding. CT abdomen and pelvis has been ordered as "urgent", now giving additional PRBC and then will obtain stat. Gastroenterology has been following and I have notified them of the anemia, though this does not appear to be GI source at this time. 11/12 CT last night showed large retroperitoneal hematoma. Transfused total of 3 units PRBC yest evening. Hgb now 8.3. Coags/fibrinogen in acceptable range this morning, heparin drip off. Patient states much less abdominal pain today. He is alert and oriented now. Coughing, O2 requirement up to 6 L NC, afebrile. 11/13 Had some hemoptysis yesterday. CT with bilateral pleural effusions/ LLL atelectasis vs infiltrate. Now on 8 L SM, tachypneic with more labored breathing today. Edematous, will diurese. He is alert and capacitated currently and agrees to L pleural drainage. Transfused 1 unit PRBC yesterday for Hgb 7.4. He still has some Right sided abdominal pain 11/14: Resting in bed on simple facemask. Hemoglobin 6.9 this morning. Patient denies any worsening shortness of breath or chest pain. 1 unit PRBCs being transfused. Left-sided pigtail catheter placed 11/13 drain 650 cc 11/15 Remains on simple mask, breathing a little labored. L pigtail catheter output is serous, 270 last 24 hours. Planned to tap R pleural effusion but when performed u/s the fluid had decreased significantly and did not appear amenable to drainage; continue diuresis. Labs are pending, nurse is about to draw them. Afebrile 11/16 Diuresing, creatinine stable. On NC. Afebrile. L Chest tube output 220. Hgb 7.6 from 8.8. Transfusing 1 unit PRBC. Noted lipase 827. Patient denies n/v /abdominal tenderness. He says he is feeling "much better" and denies abd pain. 11/17 Chest tube removed yesterday without complication. Labored breathing when he got OOB overnight. He is tired of wearing simple mask so he wants to try HFNC. Depressed today, is worried his ERCP will get canceled. Wants to get out of the hospital. Case management working on transfer to [facility] when cleared following ERCP. 11/18 Patient is on high flow oxygen with 70% FIO2. For ERCP today. 11/19 No events overnight. ERCP wasn't done yesterday as patient is on high flow oxygen. Remains on 25L with 70% FIO2. Afebrile. 11/20: no acute events. tolerating a diet. on high flow NC at 70% fio2. not dyspneic. Subjective: 11/21: repeat CT abd/pelvis with interval decrease in size of hematoma. no other changes. remains on HFNC despite diuresis. 11/22 No events overnight. Down to 3L oxygen with good sats. Afebrile. 11/23: remains on 3L o2 by NC. denies complaints. plan for ERCP saturday. 11/24 Patient went for ERCP and kept intubated post procedure CCM consulted for CC management. On no sedation. 11/25 No events overnight. Tolerating CPAP PS 10, PEEP:5. Awake and alert. 11/27: Extubated yesterday tolerating well. Abdomen remains distended. KUB yesterday showed possible colonic ileus, fecal impaction. GI re consult requested 11/28: Breathing comfortably abdominal distention seems to have improved clinically. Having small bowel movements. KUB shows distended sigmoid colon. GI continues to follow 11/29: I was emergently called to the bedside at around 6:35 AM today for severe hypoxemic respiratory failure. Apparently since the last 1 hour patient had been continuously deteriorating. He was placed on BiPAP with 100% FiO2 and persistent profound hypoxemia. On my evaluation patient's oxygen saturation was 88-90% on 100% oxygen on high BiPAP settings. Patient was only partially responsive, abdomen was even further distended. Quick exam revealed diminished air entry bilaterally with coarse breath sounds. Patient was emergently intubated and placed on mechanical ventilation as the patient was intubation only. Postintubation saturation gradually improved Objective Vital Signs Date Time Temp Pulse Resp B/P (MAP) Pulse Ox O2 Delivery O2 Flow Rate FiO2 11/29/17 07:00 85 100 11/29/17 06:00 128 11/29/17 04:00 98.2 21 112/65 (81) 11/28/17 19:43 Nasal Cannula 4.00 Intake and Output 11/29/17 11/29/17 11/29/17 07:59 15:59 23:59 Output Total 600 ml Balance -600 ml Result Diagram: 11/28/17 0420 11/28/17 0420 Other Results Microbiology Date/Time Source Procedure Growth Status 11/26/17 22:00 Gastric Gastric Occult Blood - Final GASTROCCULT NEGATIVE Complete Laboratory Tests Test 11/29/17 06:22 Blood Gas Puncture Site RT RADIAL Blood Gas Patient Temperature 98.6 Blood Gas HCO3 25 mmol/L (22-26) Blood Gas Base Excess 1.6 mmol/L (-2-2) Blood Gas Oxygen Saturation 60 % (90-100) Arterial Blood pH 7.48 (7.380-7.420) Arterial Blood Partial Pressure CO2 34 mmHg (38-42) Arterial Blood Partial Pressure O2 33 mmHg (61-120) Arterial Blood Oxygen Content 8.0 Vol % (12.0-20.0) Arterial Blood Carboxyhemoglobin 1.3 % (0-4) Arterial Blood Methemoglobin 1.2 % (0-2) Blood Gas Hemoglobin 9.4 G/DL (12.0-16.0) Oxygen Delivery Device BIPAP Blood Gas Ventilator Setting IPAP14/EPAP5 Blood Gas Inspired Oxygen 80 % Imaging Last Impressions GI Procedure 11/25/17 Signed Impressions: CONCLUSION: Multiple filling defects with a biliary stent left in place. Chest X-Ray 11/25/17 Signed Impressions: CONCLUSION: ET tube in the proximal right mainstem bronchus. The ET tube should be pulled b ack 4 to 5 cm. Bibasilar areas of consolidation or atelectasis being worse on the left with so me silhouetting of the left hemidiaphragm. This information was relayed to Radha, the patient's nurse by telephone. Abdomen/Pelvis CT 11/21/17 Signed Impressions: The retroperitoneal hematoma on the right is smaller from the prior examination . It previously measured 21 x 11 x 12 cm and now measures 21 x 8 x 11 cm. No ac [place] hemorrhage appreciated. A drainage catheter is seen within the gallbladder fossa and the gallbladder is totally decompressed. This is stable in appearance from the prior study. No biliary dilatation. A 3 mm nonobstructing left renal stone noted. Bibasilar areas of consolidation affecting the left lower lobe to a greater degree than the right. This is stable. The left effusion is smaller f rom the prior exam. The right effusion is stable. Colonic diverticuli without a cute abnormality. CONCLUSION: 1. The retroperitoneal hematoma on the right is smaller from the prior study. 2. Drainage catheter within the right upper quadrant felt to relate to a doug cystostomy tube. No biliary dilatation. 3. Nonobstructing left renal stone. 4. Colonic diverticulosis. 5. Improving left effusion with unchanged right effusion. 6. Bibasilar consolidation appears stable. Chest CT 11/12/17 Signed Impressions: CONCLUSION: 1. Bilateral pleural effusions left greater than right. Areas of infiltrate ve rsus atelectasis left lung base difficult to rule out a small superimposed pneu monia. 2. Dense coronary atherosclerotic disease. Chest Ultrasound 11/07/17 Signed Impressions: CONCLUSION: 1. Left-sided pleural effusion. Percutaneous Cholangiogram 11/01/17 Signed Impressions: CONCLUSION: 1. Uncomplicated percutaneous cholecystostomy as above. Renal Ultrasound 10/31/17 Signed Impressions: CONCLUSION: 1. No hydronephrosis. 2. Increased cortical echogenicity consistent with medical renal disease. Head Magnetic Resonance Angiography 10/31/17 Signed Impressions: CONCLUSION: 1. Unremarkable MRA of the brain. Head CT 10/31/17 Signed Impressions: CONCLUSION: 1. Negative CT Head non contrast. 2. No evidence of acute infarct, hemorrhage, mass or edema. Brain MRI 10/31/17 Signed Impressions: CONCLUSION: 1. Senescent changes with minimal periventricular ischemic white matter demyel ination. 2. No acute abnormality. Specifically, no acute infarction, mass or hemorrhage . Gall Bladder Ultrasound 10/30/17 Signed Impressions: CONCLUSION: 1. Fatty infiltration of the liver. 2. Multiple stones in the gallbladder. No biliary tract obstruction. Extremity Arterial Study 10/28/17 Signed Impressions: CONCLUSION: 1. Abnormal ABIs, left greater than right. The left DAVID is significantly dimin ished at 0.14. Aorta w/Runoff CTA 10/28/17 Signed Impressions: Service Date/Time: Saturday, October 28, 2017 21:50 - CONCLUSION: 1. Acute occlusion of the left inflow with concern for short segment occlusion involving the distal right inflow. This raises concern for an embolic event. 2. Right lower extremity shows scattered disease throughout the common femoral artery, SFA and [id number] popliteal artery with three-vessel runoff to the foot. 3. Left lower extremity with reconstitution of the common femoral artery with diseased out flow and two vessel runoff to the foot as detailed above. 4. 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 5. Hepatic steatosis. 6. Cholelithiasis. Juanjose Mckeon Jr., MD Objective Remarks GENERAL: middle-aged male, lying in bed NGT in place, somnolent and lethargic in severe respiratory distress SKIN: Warm and dry. HEAD: Normocephalic. ENT: + scleral icterus. Pupils equal, reactive NECK: Supple, trachea midline. CARDIOVASCULAR: Tachycardic in atrial fibrillation with RVR RESPIRATORY: Patient is in acute respiratory distress tachypneic in 40s hypoxemic on BiPAP. Quick exam revealed bilateral coarse wheezes and crackles air entry diminished on the right side GASTROINTESTINAL: Abdomen distended, firm. Cholecystostomy tube is in place . No flank hematoma. NEURO EXAM: Patient is somnolent and does not wake up to voice command, partially response to sternal rub. Moving extremities equally A/P Assessment and Plan ASSESSMENT/PLAN: NEURO: Metabolic encephalopathy Postintubation placed on propofol for sedation and ventilator synchrony Encephalopathy has appears to be metabolic -Lortab if needed for pain -10/31 CT of the head- negative -10/31MRI minimal periventricular ischemic white matter change no acute abnormality RESP: Acute hypoxemic respiratory failure COPD exacerbation Left lower lobe pneumonia, resolved Emergently reintubated 11/29/2017 for acute hypoxemic respiratory failure. Chest x-ray is pending at this time PRVC/Ac PEEP12. Bronchodilators. Check sputum culture, start broad-spectrum antibiotic with Zosyn and give 1 dose of vancomycin Patient was intubated on 10/31/2017. Extubated 11/07/17. Reintubated 11/25 for ERCP, extubated again 11/26 tolerating well -L pigtail chest tube placed with initially 600 mL of serosanguineous output. Respiratory status improved. pleural fluid culture negative,pathology pending. Chest tube removed 11/17 -U/s R pleural effusion on 11/15 - not amenable to drainage. On Symbicort 160/4.52 puffs inhaled every 12 hours Solumedrol [address] Johnson following CVS: Hemorrhagic shock, resolved. Secondary to R retroperitoneal hematoma Lactic acidemia- resolved Acute on chronic left limb ischemia, improved Atrial fibrillation with RVR paroxysmal atrial fibrillation HTN -Use Cardizem or esmolol infusion for rate control if hemodynamically stable postintubation. May need DC cardioversion if family agreeable -CTA showed severe aorto-iliac occlusive disease with left iliac thrombosis. Dr. Lopez evaluated, may need ax-fem bypass at some point but not during this hospitalization. -No longer a candidate for anticoagulation, ASA/Plavix recommended when patient stabilized. Now off antiplatelets both due to large RP bleed, thrombocytopenia -2D echo: EF 50%, no significant valvular lesions. Monitor HR and BP keep MAP>65mmHg -Continue Cardizem 240 mg p.o. daily, Hydralazine 50mg Q8, Lopressor 50mg Q12, if blood pressure remains stable post intubation GI Acute hepatic dysfunction Hyperbilirubinemia Transaminitis Acute Choledocholithiasis R retroperitoneal hematoma Colonic ileus s/p ERCP 11/25: Lots of food/liquid in the stomach. Gastritis, CBD dilated with multiple filling defects. 8.5 x 9cm stent placed in the CBD under fluoroscopy -Monitor LFT's Repeat CT abd/pelvis 11/21: The retroperitoneal hematoma on the right is smaller from the prior study. Drainage catheter within the right upper quadrant in place , No biliary dilatation. Nonobstructing left renal stone. Colonic diverticulosis - gallbladder ultrasound showed multiple gallstones -Retroperitoneal hematoma on 11/11 while on heparin drip, CT with large R retroperitoneal hematoma. Manage medically, repeat CT abd/pelvis 11/21: interval decrease in size of hematoma. - Gen Surgery following. -CT abdomen/pelvis 11/01: c/w choledocholithiasis - Perc cholecystostomy tube placed 11/01 by IR- Monitor drainage -Eventual cholecystectomy when stabilized. Dr. Martins has seen. -KUB showed colonic distention probable colonic ileus. Gi following -Continue NG tube, keep n.p.o. except meds. Further recommendations per GI FEN/RENAL Acute kidney injury Monitor renal function, I/O's, electrolytes replacement as needed IV hydration with half-normal saline at 84 mL/h ID Probable healthcare associated pneumonia E COLI bacteremia/severe sepsis, resolved Enterococcus in the urine: possible colonization vs. UTI. Acute Choledocholithiasis/ Cholangitis Biliary fluid gram-negative rods We start him back on broad-spectrum antibiotic with Zosyn and 1 dose of vancomycin Check sputum culture, blood culture Cholecystostomy placed 11/01. Completed abx course per ID: Unasyn discontinued 11/13. Monitor for signs of infections ( Fever, WBC) HEME: Acute blood loss anemia overlying anemia of chronic disease acute thrombocytopenia: Initially consumptive secondary to sepsis earlier during admission then consumptive secondary to acute blood loss. - HIT negative. CHARLEEN negative 10/30. Heparin on hold since 11/11. Monitor CBC 3 units PRBC 11/11. 1 unit 11/12. 1 unit PRBCs ordered for hemoglobin 6.9 on 11/14. 1 unit PRBC 11/16 DVT GI prophylaxis -Vickey's and SCDs -Heparin infusion on hold due to bleeding/thrombocytopenia. ACCESS: . PIV Palliative care following. ALT Code PT/OT CCT 45 MIN excluding procedure Patient took a turn for the worse developed acute hypoxemic respiratory failure. Etiology at this time appears unclear. His prognosis is overall poor with severe COPD severe sepsis recurrent respiratory failure. I will discuss with palliative care about further goals of care, recommend comfort measures if not improved in the next 24 hours as the prognosis is extremely poor Anil Yip MD Nov 29, 2017 07:58
[2017-11-29] MEDS ORDERED: CHLORHEXIDINE 0.12% (ORAL KIT) 15 ML CUP MT SCH (08:00)
--- NOTE | 2017-11-29 08:00 | DEATH SUM ---
Summary Demographics Date Pronounced : Nov 29, 2017 Time Of : 07:32 Pronounced By: Dr. Yip Preliminary Cause of : Cardiac arrest Anil Yip MD Nov 29, 2017 08:00
--- NOTE | 2017-11-29 08:04 | HHI.DS ---
Summary Note Date of : Nov 29, 2017 Time Of : 07:32 Admission Date October 28, 2017 at 22:06 Admitting Diagnosis Diagnosis at Time of : (1) Asystole ICD Code: I46.9 - Cardiac arrest, cause unspecified Diagnosis: Principal (2) Acute hypoxemic respiratory failure ICD Code: J96.01 - Acute respiratory failure with hypoxia Diagnosis: Principal (3) COPD with acute exacerbation ICD Code: J44.1 - Chronic obstructive pulmonary disease with (acute) exacerbation Diagnosis: Principal (4) Healthcare-associated pneumonia ICD Code: J18.9 - Pneumonia, unspecified organism Diagnosis: Principal (5) Cholangitis ICD Code: K83.0 - Cholangitis Diagnosis: Principal (6) E coli bacteremia ICD Code: R78.81 - Bacteremia Diagnosis: Principal (7) Severe sepsis ICD Code: A41.9 - Sepsis, unspecified organism; R65.20 - Severe sepsis without septic shock Diagnosis: Principal (8) Acute kidney injury ICD Code: N17.9 - Acute kidney failure, unspecified Diagnosis: Principal (9) Atrial fibrillation with RVR ICD Code: I48.91 - Unspecified atrial fibrillation Diagnosis: Principal (10) Colonic ileus Diagnosis: Principal (11) Retroperitoneal bleed ICD Code: R58 - Hemorrhage, not elsewhere classified Diagnosis: Principal (12) Acute blood loss anemia ICD Code: D62 - Acute posthemorrhagic anemia Diagnosis: Principal (13) COPD (chronic obstructive pulmonary disease) ICD Code: J44.9 - Chronic obstructive pulmonary disease, unspecified Diagnosis: Principal (14) Choledocholithiasis ICD Code: K80.50 - Calculus of bile duct without cholangitis or cholecystitis without obstruction Diagnosis: Principal (15) Acidosis, metabolic ICD Code: E87.2 - Acidosis Diagnosis: Principal (16) Acute renal failure ICD Code: N17.9 - Acute kidney failure, unspecified Diagnosis: Principal (17) Rhabdomyolysis ICD Code: M62.82 - Rhabdomyolysis Diagnosis: Principal (18) Peripheral vascular disease ICD Code: I73.9 - Peripheral vascular disease, unspecified Diagnosis: Principal (19) Pneumonia ICD Code: J18.9 - Pneumonia, unspecified organism Diagnosis: Principal (20) Ischemia of left lower extremity ICD Code: I99.8 - Other disorder of circulatory system Diagnosis: Principal (21) Physical deconditioning ICD Code: R53.81 - Other malaise Diagnosis: Principal Procedures See chart Brief History 67-year-old male presents to the emergency department via EMS for evaluation of shortness of breath and pain and numbness to the left leg. Patient believes that he is shortness of breath is related to the pain in his leg. He cannot feel his leg from his groin down. He denies any history of the same. He does report history of COPD. He denies any known fevers or chills. He denies chest pain. Patient received 1 L normal saline bolus via EMS. Patient denies any history of bleeding or blood clots. No recent surgery or travel. No hemoptysis. No history of DVT/PE. He denies leg edema. Patient states the pain is 10/10 to the left leg. No exacerbating or alleviating factors. Moderate severity. 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 The right inflow is heavily diseased as well. The patient was evaluated by vascular surgeon content strategy lead and was immediately started on heparin drip. CBC/BMP: 11/28/17 0420 11/28/17 0420 Significant Findings Laboratory Tests Test 11/26/17 12:05 11/27/17 04:44 11/28/17 04:20 11/29/17 06:22 Blood Gas HCO3 29 mmol/L (22-26) Blood Gas Base Excess 4.2 mmol/L (-2-2) Arterial Blood Partial Pressure CO2 49 mmHg (38-42) 34 mmHg (38-42) Blood Gas Hemoglobin 11.2 G/DL (12.0-16.0) 9.4 G/DL (12.0-16.0) Red Blood Count 3.61 MIL/MM3 (4.50-5.90) 3.19 MIL/MM3 (4.50-5.90) Hemoglobin 11.1 GM/DL (13.0-17.0) 10.0 GM/DL (13.0-17.0) Hematocrit 33.8 % (39.0-51.0) 29.9 % (39.0-51.0) Red Cell Distribution Width 18.3 % (11.6-17.2) 18.7 % (11.6-17.2) Platelet Count 66 TH/MM3 (150-450) 64 TH/MM3 (150-450) Mean Platelet Volume 11.5 FL (7.0-11.0) 11.5 FL (7.0-11.0) Neutrophils (%) (Auto) 88.4 % (16.0-70.0) 93.6 % (16.0-70.0) Lymphocytes # (Auto) 0.5 TH/MM3 (1.0-4.8) 0.2 TH/MM3 (1.0-4.8) Band Neutrophils % 37 % (0-6) 19 % (0-6) Lymphocytes % 5 % (9-44) 1 % (9-44) Myelocytes 1 % (0-0) Dohle Bodies PRESENT (NONE SEEN) Platelet Estimate LOW (NORMAL) LOW (NORMAL) Stomatocytes 1+ (NORMAL) Blood Urea Nitrogen 61 MG/DL (7-18) 57 MG/DL (7-18) Calcium Level 7.8 MG/DL (8.5-10.1) 7.6 MG/DL (8.5-10.1) Magnesium Level 2.7 MG/DL (1.5-2.5) 3.1 MG/DL (1.5-2.5) Sodium Level 146 MEQ/L (136-145) Chloride Level 110 MEQ/L (98-107) Estimat Glomerular Filtration Rate 65 ML/MIN (>89) 68 ML/MIN (>89) Lymphocytes (%) (Auto) 4.7 % (9.0-44.0) Neutrophils % (Manual) 78 % (16-70) Nucleated Red Blood Cells 3 /100 WBC (0-0) Toxic Granulation 1+ (NORMAL) Platelet Morphology Comment ENLARGED (NORMAL) Random Glucose 67 MG/DL (74-106) Total Protein 4.9 GM/DL (6.4-8.2) Albumin 1.9 GM/DL (3.4-5.0) Aspartate Amino Transf (AST/SGOT) 49 U/L (15-37) Alanine Aminotransferase (ALT/SGPT) 97 U/L (12-78) Total Bilirubin 6.3 MG/DL (0.2-1.0) Blood Gas Oxygen Saturation 60 % (90-100) Arterial Blood pH 7.48 (7.380-7.420) Arterial Blood Partial Pressure O2 33 mmHg (61-120) Arterial Blood Oxygen Content 8.0 Vol % (12.0-20.0) Imaging Last Impressions GI Procedure 11/25/17 Signed Impressions: CONCLUSION: Multiple filling defects with a biliary stent left in place. Chest X-Ray 11/25/17 Signed Impressions: CONCLUSION: ET tube in the proximal right mainstem bronchus. The ET tube should be pulled b ack 4 to 5 cm. Bibasilar areas of consolidation or atelectasis being worse on the left with so me silhouetting of the left hemidiaphragm. This information was relayed to Radha, the patient's nurse by telephone. Abdomen/Pelvis CT 11/21/17 Signed Impressions: The retroperitoneal hematoma on the right is smaller from the prior examination . It previously measured 21 x 11 x 12 cm and now measures 21 x 8 x 11 cm. No ac buckland hemorrhage appreciated. A drainage catheter is seen within the gallbladder fossa and the gallbladder is totally decompressed. This is stable in appearance from the prior study. No biliary dilatation. A 3 mm nonobstructing left renal stone noted. Bibasilar areas of consolidation affecting the left lower lobe to a greater degree than the right. This is stable. The left effusion is smaller f rom the prior exam. The right effusion is stable. Colonic diverticuli without a cute abnormality. CONCLUSION: 1. The retroperitoneal hematoma on the right is smaller from the prior study. 2. Drainage catheter within the right upper quadrant felt to relate to a doug cystostomy tube. No biliary dilatation. 3. Nonobstructing left renal stone. 4. Colonic diverticulosis. 5. Improving left effusion with unchanged right effusion. 6. Bibasilar consolidation appears stable. Chest CT 11/12/17 Signed Impressions: CONCLUSION: 1. Bilateral pleural effusions left greater than right. Areas of infiltrate ve rsus atelectasis left lung base difficult to rule out a small superimposed pneu monia. 2. Dense coronary atherosclerotic disease. Chest Ultrasound 11/07/17 Signed Impressions: CONCLUSION: 1. Left-sided pleural effusion. Percutaneous Cholangiogram 11/01/17 Signed Impressions: CONCLUSION: 1. Uncomplicated percutaneous cholecystostomy as above. Renal Ultrasound 10/31/17 Signed Impressions: CONCLUSION: 1. No hydronephrosis. 2. Increased cortical echogenicity consistent with medical renal disease. Head Magnetic Resonance Angiography 10/31/17 Signed Impressions: CONCLUSION: 1. Unremarkable MRA of the brain. Head CT 10/31/17 Signed Impressions: CONCLUSION: 1. Negative CT Head non contrast. 2. No evidence of acute infarct, hemorrhage, mass or edema. Brain MRI 10/31/17 Signed Impressions: CONCLUSION: 1. Senescent changes with minimal periventricular ischemic white matter demyel ination. 2. No acute abnormality. Specifically, no acute infarction, mass or hemorrhage . Gall Bladder Ultrasound 10/30/17 Signed Impressions: CONCLUSION: 1. Fatty infiltration of the liver. 2. Multiple stones in the gallbladder. No biliary tract obstruction. Extremity Arterial Study 10/28/17 Signed Impressions: CONCLUSION: 1. Abnormal ABIs, left greater than right. The left DAVID is significantly dimin ished at 0.14. Aorta w/Runoff CTA 10/28/17 Signed Impressions: Service Date/Time: Saturday, October 28, 2017 21:50 - CONCLUSION: 1. Acute occlusion of the left inflow with concern for short segment occlusion involving the distal right inflow. This raises concern for an embolic event. 2. Right lower extremity shows scattered disease throughout the common femoral artery, SFA and [id number] popliteal artery with three-vessel runoff to the foot. 3. Left lower extremity with reconstitution of the common femoral artery with diseased out flow and two vessel runoff to the foot as detailed above. 4. 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 5. Hepatic steatosis. 6. Cholelithiasis. Juanjose Mckeon Jr., MD Hospital Course 67-year-old male presents to the emergency department via EMS for evaluation of shortness of breath and pain and numbness to the left leg. Patient believes that he is shortness of breath is related to the pain in his leg. He cannot feel his leg from his groin down. He denies any history of the same. He does report history of COPD. He denies any known fevers or chills. He denies chest pain. Patient received 1 L normal saline bolus via EMS. Patient denies any history of bleeding or blood clots. No recent surgery or travel. No hemoptysis. No history of DVT/PE. He denies leg edema. Patient states the pain is 10/10 to the left leg. No exacerbating or alleviating factors. Moderate severity. 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 The right inflow is heavily diseased as well. The patient was evaluated by vascular surgeon content strategy lead and was immediately started on heparin drip. SUBJ 10/29: Remains critically ill, encephalopathy. 4 out of 4 bottles positive for GNR. I will change Rocephin to Zosyn renally dosed to cover for Pseudomonas also. Continue azithromycin. Creatinine still elevated but slightly improved. WBC count slightly increased 17.2 now with 24% bands. Source of GNR sepsis could be either UTI or pneumonia. Will consult ID as well. Remains on IV heparin for acute left limb ischemia 10/30: platelets falling >50% again today. Cr still rising, but could be ATN/ contrast nephropathy. blood cultures growing e. coli by PCR, full speciation to follow. urine culture pending. discussed case with Dr. Lopez, will stop heparin , start argatroban and send HIT/CHARLEEN. denies complaints for me, but does have objective tenderness on palpation, RUQ. 10/31: Emergently intubated today a.m. by Dr. Puckett for worsening mental status, encephalopathy and worsening respiratory failure. Prior to intubation Dr. Puckett ' exam revealed right upper quadrant tenderness. Ultrasound of the gallbladder yesterday showed gallstones. Overnight Argatroban was supratherapeutic and was held, platelet count also dropped to 30,000, HIT screen is pending. Postintubation bilateral pupils are reactive but unequal. Will repeat CT of the head, CT abdomen pelvis. BUN 49/Creat 2.7, leukocytosis persisting 11/01: no improvements. ct abd/pelvis with evidence of possible choledocholithiasis. perc doug tube planned for this AM. on esmolol infusion for afib RVR. fio2 increased to 70%. 11/02: Sodium bicarbonate infusion continued per nephrology in the setting of rhabdomyolysis serial creatinine kinase pending. Cholecystostomy drain placement 100 cc overnight. Continued thrombocytopenia, CBC, serotonin release assay pending. Plan for reinitiation of heparin awaiting GI consultation for possible invasive procedures prior to restarting heparin. Patient sinus rhythm with occasional PAC's. 11/03: No acute events overnight. Sodium bicarbonate infusion discontinued this a.m. had any improved this a.m.. Chest x-ray showed worsening consolidation, FiO2 requirements were increased to 65% during the night. CPAP trials on hold currently. Biliary drainage from cholecystostomy tube revealing gram-negative rods. The patient continues on antibiotics. Bilateral dorsalis pedis pulses monophasic signals by Doppler. Heparin infusion reinitiated. 11/04: Sodium bicarbonate infusion discontinued at 7 AM yesterday. Chest x-ray worsening consolidation versus pleural effusions. FiO2 slightly decreased to 60 %, ABG improving. Pending quantification via ultrasound of pleural fluid in am. Lasix 40mg x1 additional dose provided today . PPN discontinued discussed with Dr. Colon tube feeds initiated at [facility]. Dietary consult ordered. 11/05: Afebrile. Patient tolerating tube feeds advanced to goal rate of 55 cc/ hr. chest x-ray with slight improvement FiO2 decreased to 55% ABG pending. Initiation of CPAP trial to be attempted today. 11/06: Late entry note. Patient seen at 628am. Patient was started on CPAP and continues on CPAP greater than 10 hours. Patient following commands, currently on Precedex infusion. 11/07: Patient remained on CPAP trials for approximately 12 hours yesterday and discontinued because of agitation. CPAP trials reinitiated this a.m. Patient complaint of sore throat Lortab ordered. Patient continues on Precedex for ventilator weaning process. Chest x-ray still shows pulmonary edema, additional dose Lasix 401 dose given this a.m.. When infusion continued, monophasic Doppler signals bilateral dorsalis pedal pulses noted. 11/08: Afebrile . Patient successfully extubated yesterday. Remains on O2 at 4 L nasal cannula O2 saturation 94-95%. Patient continues on heparin infusion, she was noted to have 9 BMs last evening plan for serial H&H's concern for possible stool with occult blood. Repeat stool for occult blood. Plan for possible bedside thoracentesis ,if respiratory requirements increase, currently on O2 4 L via nasal cannula in no apparent distress. 11/11 Late entry, notified of re-consult at 17:[address] Johnson, saw patient and immediately placed L IJ CVL because patient had ripped out an IV and had insufficient peripheral IV access given clinical condition. RN states patient had Hgb 7.5 this morning. Trend was unusual with Hb 8.3--> 12.5 (without transfusion)-->7.5 and lab recommended repeat. Repeat was drawn and was 4.2. Meanwhile, while awaiting re-draw patient became hypotensive, MAP down in the 40s, and was given albumin 25 gram IV. Now he has received 1 unit PRBC and BP improved to 120s/60s. Getting 2 additional units of PRBC stat. Nurse states heparin has been off since 12:30. Sending stat coags/fibrinogen. Patient denies nausea or vomiting. He has some right-sided abdominal pain. There is dark brown drainage from cholecystostomy tube. He has not had a bowel movement in 48 hours. No obvious evidence of GI bleeding. CT abdomen and pelvis has been ordered as "urgent", now giving additional PRBC and then will obtain stat. Gastroenterology has been following and I have notified them of the anemia, though this does not appear to be GI source at this time. 11/12 CT last night showed large retroperitoneal hematoma. Transfused total of 3 units PRBC yest evening. Hgb now 8.3. Coags/fibrinogen in acceptable range this morning, heparin drip off. Patient states much less abdominal pain today. He is alert and oriented now. Coughing, O2 requirement up to 6 L NC, afebrile. 11/13 Had some hemoptysis yesterday. CT with bilateral pleural effusions/ LLL atelectasis vs infiltrate. Now on 8 L SM, tachypneic with more labored breathing today. Edematous, will diurese. He is alert and capacitated currently and agrees to L pleural drainage. Transfused 1 unit PRBC yesterday for Hgb 7.4. He still has some Right sided abdominal pain 11/14: Resting in bed on simple facemask. Hemoglobin 6.9 this morning. Patient denies any worsening shortness of breath or chest pain. 1 unit PRBCs being transfused. Left-sided pigtail catheter placed 11/13 drain 650 cc 11/15 Remains on simple mask, breathing a little labored. L pigtail catheter output is serous, 270 last 24 hours. Planned to tap R pleural effusion but when performed u/s the fluid had decreased significantly and did not appear amenable to drainage; continue diuresis. Labs are pending, nurse is about to draw them. Afebrile 11/16 Diuresing, creatinine stable. On NC. Afebrile. L Chest tube output 220. Hgb 7.6 from 8.8. Transfusing 1 unit PRBC. Noted lipase 827. Patient denies n/v /abdominal tenderness. He says he is feeling "much better" and denies abd pain. 11/17 Chest tube removed yesterday without complication. Labored breathing when he got OOB overnight. He is tired of wearing simple mask so he wants to try HFNC. Depressed today, is worried his ERCP will get canceled. Wants to get out of the hospital. Case management working on transfer to [facility] when cleared following ERCP. 11/18 Patient is on high flow oxygen with 70% FIO2. For ERCP today. 11/19 No events overnight. ERCP wasn't done yesterday as patient is on high flow oxygen. Remains on 25L with 70% FIO2. Afebrile. 11/20: no acute events. tolerating a diet. on high flow NC at 70% fio2. not dyspneic. 11/21: repeat CT abd/pelvis with interval decrease in size of hematoma. no other changes. remains on HFNC despite diuresis. 11/22 No events overnight. Down to 3L oxygen with good sats. Afebrile. 11/23: remains on 3L o2 by NC. denies complaints. plan for ERCP saturday. 11/24 Patient went for ERCP and kept intubated post procedure CCM consulted for CC management. On no sedation. 11/25 No events overnight. Tolerating CPAP PS 10, PEEP:5. Awake and alert. 11/27: Extubated yesterday tolerating well. Abdomen remains distended. KUB yesterday showed possible colonic ileus, fecal impaction. GI re consult requested 11/28: Breathing comfortably abdominal distention seems to have improved clinically. Having small bowel movements. KUB shows distended sigmoid colon. GI continues to follow 11/29: I was emergently called to the bedside at around 6:35 AM today for severe hypoxemic respiratory failure. Apparently since the last 1 hour patient had been continuously deteriorating. He was placed on BiPAP with 100% FiO2 and persistent profound hypoxemia. On my evaluation patient's oxygen saturation was 88-90% on 100% oxygen on high BiPAP settings. Patient was only partially responsive, abdomen was even further distended. Quick exam revealed diminished air entry bilaterally with coarse breath sounds. Patient was emergently intubated and placed on mechanical ventilation as the patient was intubation only. Postintubation saturation gradually improved I was informed by RN around 730 about patient developing PEA following turning for chest x-ray. This was subsequently followed immediately by asystole. Patient is a no CPR or chest compression, intubation only code. Asystole was confirmed on EKG strips. I auscultated the patient only conducted airway sounds no S1-S2 heard. Pupils are dilated and fixed. Patient was declared at 7:32 AM on 11/29/2017 Anil Yip MD Nov 29, 2017 08:04
== END 2017-11-29 07:32 | disposition expired | DRG 870 ==
LOC: NEPC 19:40 → NEDA 22:06 → HIMN 10-29 00:30
PROVIDERS: ADMIT Hospitalist; ATTEND Hospitalist
PROC: 0T9B70Z Drainage of Bladder with Drainage Device, Via Natural or Artificial Opening (ICD-10-PCS; 2017-10-28)
PROC: 5A1955Z Respiratory Ventilation, Greater than 96 Consecutive Hours (ICD-10-PCS; principal; 2017-10-31)
PROC: 0BH17EZ Insertion of Endotracheal Airway into Trachea, Via Natural or Artificial Opening (ICD-10-PCS; 2017-10-31)
PROC: 6A550Z2 Pheresis of Platelets, Single (ICD-10-PCS; 2017-10-31)
PROC: 30233K1 Transfusion of Nonautologous Frozen Plasma into Peripheral Vein, Percutaneous Approach (ICD-10-PCS; 2017-10-31)
PROC: 0F9430Z Drainage of Gallbladder with Drainage Device, Percutaneous Approach (ICD-10-PCS; 2017-11-01)
PROC: 30233N1 Transfusion of Nonautologous Red Blood Cells into Peripheral Vein, Percutaneous Approach (ICD-10-PCS; 2017-11-01)
PROC: 02HV33Z Insertion of Infusion Device into Superior Vena Cava, Percutaneous Approach (ICD-10-PCS; 2017-11-11)
PROC: 0W9B30Z Drainage of Left Pleural Cavity with Drainage Device, Percutaneous Approach (ICD-10-PCS; 2017-11-13)
PROC: 0F798DZ Dilation of Common Bile Duct with Intraluminal Device, Via Natural or Artificial Opening Endoscopic (ICD-10-PCS; 2017-11-25)
PROC: 5A1935Z Respiratory Ventilation, Less than 24 Consecutive Hours (ICD-10-PCS; 2017-11-25)
PROC: 0BH17EZ Insertion of Endotracheal Airway into Trachea, Via Natural or Artificial Opening (ICD-10-PCS; 2017-11-29)
PROC: 5A1935Z Respiratory Ventilation, Less than 24 Consecutive Hours (ICD-10-PCS; 2017-11-29)
DX: A41.51 Sepsis due to Escherichia coli [E. coli] (principal); N17.0 Acute kidney failure with tubular necrosis; J96.01 Acute respiratory failure with hypoxia; K72.00 Acute and subacute hepatic failure without coma; R65.21 Severe sepsis with septic shock; K66.1 Hemoperitoneum; G93.41 Metabolic encephalopathy; I13.0 Hypertensive heart and chronic kidney disease with heart failure and stage 1 through stage 4 chronic kidney disease, or unspecified chronic kidney disease; N18.4 Chronic kidney disease, stage 4 (severe); J44.0 Chronic obstructive pulmonary disease with (acute) lower respiratory infection; J18.1 Lobar pneumonia, unspecified organism; I74.5 Embolism and thrombosis of iliac artery; K80.62 Calculus of gallbladder and bile duct with acute cholecystitis without obstruction; I74.09 Other arterial embolism and thrombosis of abdominal aorta; J44.1 Chronic obstructive pulmonary disease with (acute) exacerbation; N39.0 Urinary tract infection, site not specified; M62.82 Rhabdomyolysis; E87.2 Acidosis; J98.11 Atelectasis; D62 Acute posthemorrhagic anemia; R04.2 Hemoptysis; K56.7 Ileus, unspecified; I46.9 Cardiac arrest, cause unspecified; I50.9 Heart failure, unspecified; E86.0 Dehydration; I99.8 Other disorder of circulatory system; X50.0XXA Overexertion from strenuous movement or load, initial encounter; Y93.89 Activity, other specified; Y92.9 Unspecified place or not applicable; M54.9 Dorsalgia, unspecified; Z87.891 Personal history of nicotine dependence; R20.0 Anesthesia of skin; I25.10 Atherosclerotic heart disease of native coronary artery without angina pectoris; E66.9 Obesity, unspecified; Z68.30 Body mass index [BMI] 30.0-30.9, adult; B95.2 Enterococcus as the cause of diseases classified elsewhere; I73.9 Peripheral vascular disease, unspecified; N20.0 Calculus of kidney; K57.30 Diverticulosis of large intestine without perforation or abscess without bleeding; Z79.899 Other long term (current) drug therapy; K21.9 Gastro-esophageal reflux disease without esophagitis; D69.59 Other secondary thrombocytopenia; I48.0 Paroxysmal atrial fibrillation; D63.8 Anemia in other chronic diseases classified elsewhere; H57.04 Mydriasis; K29.70 Gastritis, unspecified, without bleeding; Z51.5 Encounter for palliative care; R53.81 Other malaise
CPT/HCPCS: 31500; 32551; 36430; 36556; 36600; 47490; 70450; 70544; 70551; 71045; 71250; 74018; 74176; 74330; 75635; 76604; 76705; 76775; 76937; 80048; 80053; 80074; 80076; 81001; 82103; 82105; 82140; 82150; 82270; 82272; 82390; 82550; 82552; 82570; 82728; 82805; 82945; 82948; 83010; 83036; 83520; 83540; 83550; 83605; 83615; 83690; 83735; 83874; 84100; 84155; 84157; 84300; 84439; 84443; 84484; 85007; 85014; 85018; 85025; 85027; 85044; 85384; 85610; 85730; 86022; 86038; 86255; 86850; 86900; 86901; 86920; 86927; 87040; 87070; 87077; 87086; 87186; 87205; 87641; 88112; 88305; 89051; 93005; 93306; 93922; 94002; 94003; 94150; 94640; 94664; 94667; 94668; 96365; 96368; 96375; C1729; C1769; C2625; C9113; J0295; J0456; J0610; J0696; J0883; J1120; J1170; J1644; J1940; J2250; J2270; J2370; J2405; J2543; J2765; J2920; J3010; J3480; J7030; J7050; J7060; J7070; J7120; J7608; P9016; P9017; P9035; P9047; Q9963; Q9967